=== PATIENT | male | born 1965 | race Caucasian/White ===

== ENCOUNTER 2022-09-19 13:55 | Inpatient (IN) | payer MEDICAID, SELFPAY ==
--- NOTE | ~2022-09-19 | MR_ITS ---
EXAMINATION: MR BRAIN WITHOUT AND WITH CONTRAST CLINICAL INFORMATION: Cerebrovascular accident. COMPARISON: CT angiogram of the head and neck 09/19/2022. TECHNIQUE: Multiplanar MR imaging of the brain was performed without and with contrast. A total of 8.5 mL Gadavist was less this examination. FINDINGS: There are a few small foci of restricted diffusion involving the left frontal and parietal lobes near the vertex best depicted on axial image 23 of 31 series 4. These acute findings are superimposed upon a few scattered chronic small vessel ischemic changes within the periventricular white matter and jim. No pathological magnetic susceptibility artifact. Intracranial vascular flow voids are grossly maintained. Postcontrast images reveal a few tiny foci of enhancement near the site of the acute infarcts. Otherwise no abnormal intracranial mass. No drainable mass effect or midline shift. No abnormal extra-axial collection. Lateral and third ventricles are normal. No hydrocephalus. Midline structures including the cervicomedullary junction are normal. No acute bone marrow signal changes. There is no mastoid middle ear effusion. Mild paranasal sinus disease primarily affecting the ethmoid air cells and maxillary sinuses. Globes and orbits are symmetric. MR/MR head/brain wo/w con IMPRESSION: There are a few small acute and subacute cortical infarcts involving the left frontal and parietal lobes near the vertex. These findings are superimposed upon a few scattered chronic small vessel ischemic changes within the periventricular white matter and jim.
--- NOTE | ~2022-09-19 | CT_ITS ---
CT ANGIOGRAM NECK WITH CONTRAST CT ANGIOGRAM BRAIN WITH CONTRAST CLINICAL INFORMATION: Right leg and arm weakness. COMPARISON: Head CT 12/25/2010. TECHNIQUE: Test bolus sequences followed by intravenous administration 70 mL of Omnipaque 350. Helical imaging was performed in the axial plane from the thoracic inlet to the skull vertex. Delayed postcontrast imaging of the head was also performed. The data was processed at the cardiology technologist workstation for generation of MIP sequences. Angled MIPs and volume rendered reformatted images were also generated at an offline 3D workstation under concurrent supervision. Stenoses are assessed in accordance with NASCET criteria unless otherwise indicated. This CT examination was performed using dose optimization techniques as appropriate, variously including the following: *Automated exposure control *Adjustment of mA and/or kV according to patient size (this includes techniques or standardized protocols for targeted exams where dose is matched to indication/reason for exam; i.e. extremities or head) *Use of iterative reconstruction technique FINDINGS: BRAIN: Suspected small acute infarct within the left parasagittal frontoparietal lobe in the left FORD territory on image 20 of series 9 that can be confirmed with MRI. Hypoattenuation versus artifact within the jim that would be better assessed with an MRI of the brain with and without IV contrast. [There is no intracranial hemorrhage, hydrocephalus, extra-axial surface collection, midline shift, or other herniation pattern. The basilar cisterns are preserved. No significant soft tissue abnormality. No acute osseous abnormality. The paranasal sinuses and the mastoid air cells are well aerated.] CERVICAL SOFT TISSUES AND LUNG APICES: Partially imaged ground glass opacities and consolidation within the lungs that can be correlated for any clinical signs of infection or pulmonary edema. NECK CTA: Left common carotid artery arises from the brachiocephalic artery. Proximal arch vessels are non-stenotic. The vertebral arteries are codominant. No significant ostial stenosis is visualized on either side. Both vertebral arteries are widely patent throughout their extracranial cervical course. Both common carotid arteries are normal in course and caliber.] There is atherosclerotic disease involving the carotid bifurcations bilaterally without significant stenosis involving the proximal internal carotid arteries on either side. BRAIN CTA: There is a severe stenosis versus short segment occlusion of the left anterior cerebral artery at the level of the genu of the corpus callosum. The remainder of the vessel is widely patent. Remaining intracranial arterial vasculature is widely patent. No aneurysm. Timing of the contrast bolus allows assessment of the major dural venous sinuses, which all opacify normally] CT/CT angio head neck IMPRESSION: - Suspected small acute infarct within the left parasagittal frontoparietal lobe in the left FORD territory on image 20 of series 9 that can be confirmed with MRI. - Hypoattenuation versus artifact within the jim that would be better assessed with an MRI of the brain with and without IV contrast. 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 The remainder of the vessel is widely patent. - Partially imaged ground glass opacities and consolidation within the lungs that can be correlated for any clinical signs of infection or pulmonary edema.
--- NOTE | 2022-09-19 14:00 | ED_ITS ---
HPI - General Adult General Chief complaint: Stroke Stated complaint: No Feeling In Legs Time Seen by Provider: 09/19/22 14:23 Source: patient and family Mode of arrival: ambulatory Limitations: no limitations History of Present Illness HPI narrative: 57 yo male with hx of asthma, HTN but does not take his medications he does take a candace aspirin daily he notes that he went to bed at 11pm and states in the middle of the night he was not okay. He woke up around 5am and noted the R side of his body R leg worse than R arm is weak and he has to drag it to walk. He has no headache. He notes he fell x 2 no injury trying to get around. He states this has never happened before. He hasn't seen his doctor in a year. He denies drug use. He denies numbness. He fought coming in but his family member finally was able to get him in here. complaint: R sided weakness Onset (ago): hour(s) (15 hours ago) Location: right, upper extremity and lower extremity Radiation: non-radiation Severity: moderate Relieving factors: none Exacerbating factors: movement Associated symptoms: denies other symptoms Treatments prior to arrival: none Related Data Allergies Allergy/AdvReac Type Severity Reaction Status Date / Time No Known Allergies Allergy Verified 09/19/22 14:03 Review of Systems Review of Systems: Constitutional : No Fever, No Chills, No Fatigue ENT/Mouth : No sore throat, No Rhinorrhea Eyes: No Eye Pain, No Swelling, No Redness, no vision changes Cardiovascular : No Chest Pain, No SOB, No Dyspnea on Exertion Respiratory : No Cough, No Sputum Gastrointestinal : No Nausea, No Vomiting, No Diarrhea, No abdominal Pain Genitourinary : No Dysuria, No Urinary Frequency, No Hematuria, Musculoskeletal : No joint pain, No Myalgias, No Joint Swelling Skin : No Skin Lesions, No rash Neuro : pos Weakness, No Numbness, No Dizziness, no Headache Psych : No Anxiety/Panic, No Depression All other systems reviewed and are negative COUNT INCLUDES THE [facility] Past Medical History Attestation statement: The following information was validated with the patient. Medical History Asthma Hypertension Social History Social History Alcohol intake: current Alcohol intake frequency: a few times a month Patient Tobacco Use Status: Current everyday Tobacco user Smoked in Last 30 Days: Yes Advance Directives: No Advance Directives Information Provided: Yes Physical Exam ED Vital Signs: Vital Signs - 24 hr 09/19/22 14:04 09/19/22 14:50 09/19/22 16:16 Temperature 98 F 98.1 F 97.9 F Pulse Rate 109 H 111 H 78 Respiratory Rate 19 18 15 Blood Pressure 211/118 H 193/93 H 207/94 H Pulse Oximetry 99 95 96 Oxygen Delivery Method Room Air Room Air Room Air BMI result Body Mass Index 169.3 Appearance: Alert. Oriented X3. No acute distress. Eyes: Pupils equal, round and reactive to light. EOMi reports normal visual tai ENT: Pharynx normal. Neck: Normal inspection. Neck supple. CVS: Normal heart rate and rhythm. Pulses normal. Respiratory: No respiratory distress. Breath sounds normal. Abdomen: Soft and nontender. Skin: Skin warm and dry. Normal skin color. Normal skin turgor. Extremities: No lower extremity edema. No calf ttp Neuro: Oriented X 3. normal speech, face symmetric, R arm 4/5, R leg 3+/5. No sensory deficit. NIH Stroke Scale Internal: Initial- Upon Arrival Level of Consciousness: Alert Level of Consciousness Questions: Answers both questions correctly Level of Consciousness Commands: Performs both tasks correctly Best Gaze: Normal Visual: No visual loss Facial Palsy: Normal Motor Arm (Right): Drift Motor Arm (Left): No drift Motor Leg (Right): Some effort against gravity Motor Leg (Left): No drift Limb Ataxia: Absent Sensory: Normal Best Language: No aphasia Dysarthia: Normal Extinction and Inattention: No abnormality Score: 3 Course Course Course Narrative: RME: 57yo M w/PMHx HTN noncompliant on meds, asthma, gastritis c/o RLE weakness since waking this morning around 5AM. states was unable to walk, fell out of bed and was dragging his R foot, admits made it to work but then fell 2 more times. admits to feeling off balance. Denies headache, CP/SOB, numbness, tingling. Denies recent travel or known insect bites HTNsive 211/118 in triage, RLE weakness noted. Pulses difficult to palpate, unable to perform DTRs in triage EKG, labs, Head CT ordered Full HPI, ROS and PE to be performed by primary ED provider. Reevaluation(s) Reevaluation #1: given CTA will admit he agrees to stay - ASA 81mg and atorvastatin ordered, lipid hemoglobin A1c and ESR/CRP ordered. BP high but given stroke will need to be slowly reduced. Medications Administered Discontinued Medications Generic Name Dose Route Start Last Admin Trade Name Freq PRN Reason Stop Dose Admin Iohexol 100 ml 09/19/22 15:44 09/19/22 15:44 Iohexol 350 Mg/Ml 100 Ml Infus..Btl IV 09/19/22 15:45 70 ml ONCE ONE Administration Medical Decision Making Medical Decision Making MDM Narrative: 57 yo male with hx of asthma, gastritis, hypertension does not take his medications here with R sided weakness arm worse than leg - at this time he will need EKG to assess for afib, CTA to assess for LVO and stroke. He states he took a baby 81mg this AM. I anticipate if no LVO he will need admission for stroke workup if he agrees to stay. Differential Diagnosis Differential Diagnoses: The differential diagnosis associated with the presentation includes stroke, uncontrolled HTN Admission/Observation Consideration of admission/observation: Escalation of care including admission/observation considered Consult Healthcare Provider Management of the patient was discussed with: Hospitalist Lab Data [facility] Lab Attestation statement: I reviewed the patient's lab results. 09/19/22 14:40 09/19/22 14:40 Labs: Lab Results 09/19/22 09/19/22 09/19/22 Range/Units 14:40 14:40 14:40 WBC 6.9 (4.8-10.8) X10*3/uL RBC 5.57 (4.60-5.80) X10*6/uL Hgb 15.8 (14.0-18.0) g/dl Hct 46.5 (42.0-52.0) % MCV 83.5 (80.0-98.0) fL MCH 28.4 (27.0-33.0) pg MCHC 34.0 (31.0-36.0) g/dl RDW 13.1 (11.0-16.0) % Plt Count 287 (160-400) X10*3/uL MPV 8.8 L (9.4-12.4) fL Immature Gran % (Auto) 0.3 (0.0-0.4) % Neut % (Auto) 44.3 L (45-73) % Lymph % (Auto) 47.8 H (20-40) % [place] % (Auto) 6.2 (2-11) % Eos % (Auto) 1.0 (0-4) % Baso % (Auto) 0.4 (0-2) % Lymph # (Auto) 3.3 (1.2-4.9) X10*3/uL [place] # (Auto) 0.4 (0.1-1.2) X10*3/uL Eos # (Auto) 0.1 (0.0-0.4) X10*3/uL Baso # (Auto) 0.0 (0.0-0.2) X10*3/uL Abs Immat Gran (auto) 0.02 (0.00-0.03) X10*3/uL Absolute Neuts (auto) 3.1 (2.0-8.3) x10*3/uL Absolute Nucleated RBC 0.000 (0.0-0.012) X10*3/uL Nucleated RBC % (auto) 0.0 (0.0-0.2) /100WBC PT 10.2 (10.0-13.1) SEC INR 0.9 (0.9-1.1) APTT (26.0-36.4) SEC Sodium 140 (135-145) mmol/L Potassium 4.4 (3.3-5.1) mmol/L Chloride 104 (96-108) mmol/L Carbon Dioxide 24 (22-29) mmol/L Anion Gap 16 (12-20) BUN 14 (9-16) mg/dL Creatinine 1.06 (0.5-1.4) mg/dL Estim Creat Clear Calc 280.4 Estimated GFR > 60 POC Glucose (60-115) mg/dL Random Glucose 120 H (60-115) mg/dL Calcium 10.2 (8.4-10.2) mg/dL Magnesium 1.9 (1.6-2.6) mg/dL Total Bilirubin 0.7 (0.0-1.0) mg/dL Direct Bilirubin 0.1 (0.0-0.5) mg/dL AST 31 (5-37) U/L ALT 54 H (0-40) U/L Alkaline Phosphatase 96 (39-117) U/L Troponin I High Sens (<3.5-35.0) ng/L Total Protein 7.9 (6.5-8.0) g/dL Albumin 5.0 (3.5-5.0) g/dL Urine Color Urine Appearance Urine pH (5.0-9.0) Ur Specific [place] (1.005-1.025) Urine Protein (Neg-Trace) mg/dL Urine Glucose (UA) (Negative) mg/dL Urine Ketones (Negative) mg/dL Urine Blood (Negative) Urine Nitrite (Negative) Ur Leukocyte Esterase (Negative) Urine Opiates Screen (Not Detect) Urine Fentanyl Screen (Not Detect) Ur Barbiturates Screen (Not Detect) Ur Phencyclidine Scrn (Not Detect) Ur Amphetamines Screen (Not Detect) U Benzodiazepines Scrn (Not Detect) Urine Cocaine Screen (Not Detect) U Marijuana (THC) Screen (Not Detect) 09/19/22 09/19/22 09/19/22 Range/Units 14:40 14:40 15:00 WBC (4.8-10.8) X10*3/uL RBC (4.60-5.80) X10*6/uL Hgb (14.0-18.0) g/dl Hct (42.0-52.0) % MCV (80.0-98.0) fL MCH (27.0-33.0) pg MCHC (31.0-36.0) g/dl RDW (11.0-16.0) % Plt Count (160-400) X10*3/uL MPV (9.4-12.4) fL Immature Gran % (Auto) (0.0-0.4) % Neut % (Auto) (45-73) % Lymph % (Auto) (20-40) % [place] % (Auto) (2-11) % Eos % (Auto) (0-4) % Baso % (Auto) (0-2) % Lymph # (Auto) (1.2-4.9) X10*3/uL [place] # (Auto) (0.1-1.2) X10*3/uL Eos # (Auto) (0.0-0.4) X10*3/uL Baso # (Auto) (0.0-0.2) X10*3/uL Abs Immat Gran (auto) (0.00-0.03) X10*3/uL Absolute Neuts (auto) (2.0-8.3) x10*3/uL Absolute Nucleated RBC (0.0-0.012) X10*3/uL Nucleated RBC % (auto) (0.0-0.2) /100WBC PT (10.0-13.1) SEC INR (0.9-1.1) APTT 33.9 (26.0-36.4) SEC Sodium (135-145) mmol/L Potassium (3.3-5.1) mmol/L Chloride (96-108) mmol/L Carbon Dioxide (22-29) mmol/L Anion Gap (12-20) BUN (9-16) mg/dL Creatinine (0.5-1.4) mg/dL Estim Creat Clear Calc Estimated GFR POC Glucose 131 H (60-115) mg/dL Random Glucose (60-115) mg/dL Calcium (8.4-10.2) mg/dL Magnesium (1.6-2.6) mg/dL Total Bilirubin (0.0-1.0) mg/dL Direct Bilirubin (0.0-0.5) mg/dL AST (5-37) U/L ALT (0-40) U/L Alkaline Phosphatase (39-117) U/L Troponin I High Sens < 2.7 (<3.5-35.0) ng/L Total Protein (6.5-8.0) g/dL Albumin (3.5-5.0) g/dL Urine Color Urine Appearance Urine pH (5.0-9.0) Ur Specific [place] (1.005-1.025) Urine Protein (Neg-Trace) mg/dL Urine Glucose (UA) (Negative) mg/dL Urine Ketones (Negative) mg/dL Urine Blood (Negative) Urine Nitrite (Negative) Ur Leukocyte Esterase (Negative) Urine Opiates Screen (Not Detect) Urine Fentanyl Screen (Not Detect) Ur Barbiturates Screen (Not Detect) Ur Phencyclidine Scrn (Not Detect) Ur Amphetamines Screen (Not Detect) U Benzodiazepines Scrn (Not Detect) Urine Cocaine Screen (Not Detect) U Marijuana (THC) Screen (Not Detect) 09/19/22 09/19/22 Range/Units 16:14 16:14 WBC (4.8-10.8) X10*3/uL RBC (4.60-5.80) X10*6/uL Hgb (14.0-18.0) g/dl Hct (42.0-52.0) % MCV (80.0-98.0) fL MCH (27.0-33.0) pg MCHC (31.0-36.0) g/dl RDW (11.0-16.0) % Plt Count (160-400) X10*3/uL MPV (9.4-12.4) fL Immature Gran % (Auto) (0.0-0.4) % Neut % (Auto) (45-73) % Lymph % (Auto) (20-40) % [place] % (Auto) (2-11) % Eos % (Auto) (0-4) % Baso % (Auto) (0-2) % Lymph # (Auto) (1.2-4.9) X10*3/uL [place] # (Auto) (0.1-1.2) X10*3/uL Eos # (Auto) (0.0-0.4) X10*3/uL Baso # (Auto) (0.0-0.2) X10*3/uL Abs Immat Gran (auto) (0.00-0.03) X10*3/uL Absolute Neuts (auto) (2.0-8.3) x10*3/uL Absolute Nucleated RBC (0.0-0.012) X10*3/uL Nucleated RBC % (auto) (0.0-0.2) /100WBC PT (10.0-13.1) SEC INR (0.9-1.1) APTT (26.0-36.4) SEC Sodium (135-145) mmol/L Potassium (3.3-5.1) mmol/L Chloride (96-108) mmol/L Carbon Dioxide (22-29) mmol/L Anion Gap (12-20) BUN (9-16) mg/dL Creatinine (0.5-1.4) mg/dL Estim Creat Clear Calc Estimated GFR POC Glucose (60-115) mg/dL Random Glucose (60-115) mg/dL Calcium (8.4-10.2) mg/dL Magnesium (1.6-2.6) mg/dL Total Bilirubin (0.0-1.0) mg/dL Direct Bilirubin (0.0-0.5) mg/dL AST (5-37) U/L ALT (0-40) U/L Alkaline Phosphatase (39-117) U/L Troponin I High Sens (<3.5-35.0) ng/L Total Protein (6.5-8.0) g/dL Albumin (3.5-5.0) g/dL Urine Color Yellow Urine Appearance Clear Urine pH 7.0 (5.0-9.0) Ur Specific [place] 1.015 (1.005-1.025) Urine Protein Negative (Neg-Trace) mg/dL Urine Glucose (UA) Negative (Negative) mg/dL Urine Ketones Negative (Negative) mg/dL Urine Blood Negative (Negative) Urine Nitrite Negative (Negative) Ur Leukocyte Esterase Negative (Negative) Urine Opiates Screen Not Detected (Not Detect) Urine Fentanyl Screen Not Detected (Not Detect) Ur Barbiturates Screen Not Detected (Not Detect) Ur Phencyclidine Scrn Not Detected (Not Detect) Ur Amphetamines Screen Not Detected (Not Detect) U Benzodiazepines Scrn Not Detected (Not Detect) Urine Cocaine Screen Not Detected (Not Detect) U Marijuana (THC) Screen Not Detected (Not Detect) Independent Interpretation I performed an independent interpretation of an: EKG and CT Scan Interpretation: Rate: 98 Rhythm: NSR [place]: left axis, LVH Normal P waves. Normal [place]. Normal QRS complex. ST T wave : no BRITTANY qTC: normal prior studies: no acute ischemia The study has been interpreted contemporaneously by me. . Radiology Impression Discussion of test interpretation with radiology: I have reviewed the radiologist's reading. Independent Historian Clinical information obtained from an independent historian. History obtained from or confirmed by: Other (family member who brought him in) Chronic Conditions Patient?s care impacted by: Hypertension Social Determinants Patient?s care significantly limited by Social Determinants of Health including: Other Social Determinant of Health (non compliant with medications) Discharge Plan Discharge Clinical Impression: Cerebrovascular accident Qualifiers: CVA mechanism: unspecified Qualified Code(s): I63.9 - Cerebral infarction, unspecified Patient Disposition: Admitted As Inpatient
[2022-09-19 14:04] VITALS: BP 211/118; PULSE 109; RESP 19; TEMP 36.6; O2SAT 99; BMI 169.3
--- NOTE | 2022-09-19 14:05 | ECG_ITS ---
Test Reason : WEAKNESS Blood Pressure : / mmHG Vent. Rate : 098 BPM Atrial Rate : 098 BPM P-R Int : 134 ms QRS Dur : 090 ms QT Int : 352 ms P-R-T Axes : 051 -45 053 degrees QTc Int : 449 ms Normal sinus rhythm Possible Left atrial enlargement Left axis deviation Minimal voltage criteria for LVH, may be normal variant ( Bob product ) Abnormal ECG No previous ECGs available Referred By: Sharri Bowie Electronically Signed By:FERMIN SEGURA
[2022-09-19 14:50] VITALS: BP 193/93; PULSE 111; RESP 18; TEMP 36.7; O2SAT 95
[2022-09-19 14:52] LABS: MANUAL DIFF FLAG NO
--- NOTE | 2022-09-19 14:54 | PC.NURSE ---
Alert and oriented. Arrived from home accompanied by family member. states he woke up around 5am and fell because of weakness in his right leg. Denies chest pain, sob, or headache. Hand grasps weaker on right side, difficulty raising right leg. Able to ambulate but gait unsteady and having difficulty moving right leg. States has a history of htn and does not take BP medication as ordered. PERRLA. Denies double or blurry vision.
[2022-09-19 14:56] LABS: Basophils Percent Auto 0.4 % (0-2); Eosinophils Absolute Auto 0.1 X10*3/uL (0.0-0.4); Hematocrit 46.5 % (42.0-52.0); Hemoglobin 15.8 g/dl (14.0-18.0); Imm Gran Abs Auto 0.02 X10*3/uL (0.00-0.03); Imm Gran Pct Auto 0.3 % (0.0-0.4); Lymphocytes Absolute Auto 3.3 X10*3/uL (1.2-4.9); Lymphocytes Percent Auto 47.8 % (20-40); Mean Corpuscular Hemoglobin 28.4 pg (27.0-33.0); Mean Corpuscular Volume 83.5 fL (80.0-98.0); Mean Platelet Volume 8.8 fL (9.4-12.4); Monocytes Absolute Auto 0.4 X10*3/uL (0.1-1.2); Monocytes Percent Auto 6.2 % (2-11); Neutrophils Absolute Auto 3.1 x10*3/uL (2.0-8.3); Neutrophils Percent Auto 44.3 % (45-73); Platelet Count 287 X10*3/uL (160-400); Red Blood Count 5.57 X10*6/uL (4.60-5.80); Red Cell Distribution Width 13.1 % (11.0-16.0); White Blood Count 6.9 X10*3/uL (4.8-10.8)
[2022-09-19 15:03] LABS: Glucose, Whole Blood 131 mg/dL (60-115)
[2022-09-19 15:04] LABS: Partial Thromboplastin Time 33.9 SEC (26.0-36.4)
[2022-09-19 15:16] LABS: Alanine Aminotransferase 54 U/L (0-40); Alkaline Phosphatase 96 U/L (39-117); Anion Gap 16 (12-20); Aspartate Amino Transferase 31 U/L (5-37); Bilirubin Direct 0.1 mg/dL (0.0-0.5); Bilirubin Total 0.7 mg/dL (0.0-1.0); Blood Urea Nitrogen 14 mg/dL (9-16); Calcium 10.2 mg/dL (8.4-10.2); Carbon Dioxide 24 mmol/L (22-29); Chloride 104 mmol/L (96-108); Creatinine Clr Calc Pharmacy 280.4; Estimated Glomerular Filt Rate > 60; Glucose Random 120 mg/dL (60-115); Magnesium 1.9 mg/dL (1.6-2.6); Potassium 4.4 mmol/L (3.3-5.1); Sodium 140 mmol/L (135-145); Total Protein 7.9 g/dL (6.5-8.0)
[2022-09-19 15:19] LABS: Troponin-I High Sensitivity < 2.7 ng/L (<3.5-35.0)
--- NOTE | 2022-09-19 15:28 | PC.NURSE ---
Pt out of room for CTA at this time
[2022-09-19] MEDS: iohexoL 350 MG/ML 100 ML INFUS..BTL IV (15:44)
[2022-09-19 16:04] LABS: INTERNATIONAL NORM RATIO 0.9 (0.9-1.1); Prothrombin Time 10.2 SEC (10.0-13.1)
[2022-09-19 16:16] VITALS: BP 207/94; PULSE 78; RESP 15; TEMP 36.6; O2SAT 96
[2022-09-19 16:27] LABS: Appearance Urine Clear; Color Urine Yellow; Glucose Urine UA Negative (Negative); Leukocyte Esterase Urine Negative (Negative); Nitrite Urine Negative (Negative); Specific Gravity - Urine 1.015 (1.005-1.025); Urine Blood Negative (Negative); Urine Ketones Negative (Negative); Urine Protein Negative (Neg-Trace)
--- NOTE | 2022-09-19 16:33 | PC.NURSE ---
Provider notified of elevated BP with no new orders at this time
[2022-09-19 16:34] LABS: Amphetamine Screen Urine Not Detected (Not Detect); Barbiturates, Urine Not Detected (Not Detect); Benzodiazepines Screen Urine Not Detected (Not Detect); Cannabinoid Screen Urine Not Detected (Not Detect); Cocaine Screen Urine Not Detected (Not Detect); Fentanyl, urine Not Detected (Not Detect); Opiate Screen Urine Not Detected (Not Detect); Phencyclidine Screen Urine Not Detected (Not Detect)
[2022-09-19] MEDS: Atorvastatin Calcium 80 MG TABLET PO (16:44)
[2022-09-19] MEDS: Aspirin 81 MG TAB.CHEW PO (16:44)
--- NOTE | 2022-09-19 16:55 | PC.NURSE ---
PO meds as ordered. Passed swallow eval. Denies sob, headache, or any new weakness. Continues to have right sided leg and arm weakness. BP remains elevated provider aware.
[2022-09-19 17:18] LABS: C Reactive Protein 0.43 mg/dL (< or = 0.50); Estimated Average Glucose 128 mg/dL; Hemoglobin A1c % 6.1 %
[2022-09-19 17:20] LABS: Cholesterol 244 mg/dL; HDL Cholesterol 41 mg/dL; LDL Cholesterol Calculated 148 mg/dl; Triglycerides 278 mg/dL
--- NOTE | 2022-09-19 17:42 | P.HPHOSP_ITS ---
History of Present Illness Date of Service: 09/19/22 Chief Complaint: RIght leg weakness 57-year-old male with history of asthma hypertension (noncompliant medication) states he went to bed at 23:00 last evening and woke in the middle of the night stating his right leg was weak. At 05:00 he attempted to arise in noted extreme weakness of the right leg; attempted to walk but fell several times. Attempted to go to work but could not walk sufficiently; at the origins of his family he was brought [facility]. CTA of the head neck revealed a suspected small acute infarct within the left parasagittal frontal parietal lobe in the left FORD territory. Patient was given atorvastatin 80 mg aspirin 81 mg and will be admitted to telemetry Review of Systems Review of Systems: Denies chest pain Denies shortness of breath Denies fever chills Denies nausea vomiting diarrhea Admits to right-sided weakness leg greater than arm PMFSH Medical History (Updated 09/19/22 @ 17:48 by Rudi Hernandez DO) Asthma Hypertension Social History Alcohol intake: current Alcohol intake frequency: a few times a month Patient Tobacco Use Status: Current everyday Tobacco user Smoked in Last 30 Days: Yes Advance Directives: No Advance Directives Information Provided: Yes Meds Allergies Allergy/AdvReac Type Severity Reaction Status Date / Time No Known Allergies Allergy Verified 09/19/22 14:03 Active Medications: Current Medications Acetaminophen (Acetaminophen 325 Mg Tablet) 650 mg PO Q6H PRN PRN Reason: Pain, Mild (Pain Scale 1-3) Aspirin (Aspirin 81 Mg Tab.Chew) 81 mg PO DAILY ONE Stop: 09/19/22 17:39 Atorvastatin Calcium (Atorvastatin Calcium 80 Mg Tablet) 80 mg PO DAILY ONE Stop: 09/20/22 17:39 Enoxaparin Sodium (Enoxaparin Sodium 40 Mg/0.4 Ml Syringe) 40 mg SUBCUT DAILY ONE Stop: 09/19/22 17:38 Sodium Chloride (0.9 % Sodium Chloride Flush 3 Ml Syringe) 3 ml IVFLUSH QSHIFT ALEXIS Physical Exam Vital Signs and Narrative: Vital Signs: Last Vital Signs Temp 97.9 F 09/19/22 16:16 Pulse 78 09/19/22 16:16 Resp 15 09/19/22 16:16 BP 207/94 H 09/19/22 16:16 Pulse Ox 96 09/19/22 16:16 O2 Del Method Room Air 09/19/22 16:16 BMI result Body Mass Index 169.3 Const: Other: Awake alert oriented x3 no acute distress Resp: Other: Scattered coarse rhonchi that clear with cough Cardio: Other: Regular rate and rhythm; no S4; positive S1-S2; no S3 murmurs rubs or gallops GI: Other: Soft nontender nondistended normoactive bowel sounds Neuro: Other: Cranial nerves 2-12 grossly intact as tested. Motor 3+/5 RLE; 4/5 RUE; minimal pronator drift on right. Sensation intact. Cognition appropriate Extrem: Other: No edema bilaterally Results Labs 09/19/22 14:40 09/19/22 14:40 Labs: Laboratory Results - last 24 hr 09/19/22 09/19/22 09/19/22 14:40 14:40 14:40 MCV 83.5 MCH 28.4 MCHC 34.0 RDW 13.1 Plt Count 287 MPV 8.8 L Immature Gran % (Auto) 0.3 Neut % (Auto) 44.3 L Lymph % (Auto) 47.8 H [place] % (Auto) 6.2 Eos % (Auto) 1.0 Baso % (Auto) 0.4 Lymph # (Auto) 3.3 [place] # (Auto) 0.4 Eos # (Auto) 0.1 Baso # (Auto) 0.0 Abs Immat Gran (auto) 0.02 Absolute Neuts (auto) 3.1 Absolute Nucleated RBC 0.000 Nucleated RBC % (auto) 0.0 PT 10.2 INR 0.9 APTT Anion Gap 16 Estim Creat Clear Calc 280.4 Estimated GFR > 60 POC Glucose Random Glucose 120 H Estimat Average Glucose Hemoglobin A1c % Calcium 10.2 Magnesium 1.9 Total Bilirubin 0.7 Direct Bilirubin 0.1 AST 31 ALT 54 H Alkaline Phosphatase 96 Troponin I High Sens C-Reactive Protein Total Protein 7.9 Albumin 5.0 Triglycerides Cholesterol LDL Cholesterol, Calc HDL Cholesterol Urine Color Urine Appearance Urine pH Ur Specific [place] Urine Protein Urine Glucose (UA) Urine Ketones Urine Blood Urine Nitrite Ur Leukocyte Esterase Urine Opiates Screen Urine Fentanyl Screen Ur Barbiturates Screen Ur Phencyclidine Scrn Ur Amphetamines Screen U Benzodiazepines Scrn Urine Cocaine Screen U Marijuana (THC) Screen 09/19/22 09/19/22 09/19/22 14:40 14:40 15:00 MCV MCH MCHC RDW Plt Count MPV Immature Gran % (Auto) Neut % (Auto) Lymph % (Auto) [place] % (Auto) Eos % (Auto) Baso % (Auto) Lymph # (Auto) [place] # (Auto) Eos # (Auto) Baso # (Auto) Abs Immat Gran (auto) Absolute Neuts (auto) Absolute Nucleated RBC Nucleated RBC % (auto) PT INR APTT 33.9 Anion Gap Estim Creat Clear Calc Estimated GFR POC Glucose 131 H Random Glucose Estimat Average Glucose Hemoglobin A1c % Calcium Magnesium Total Bilirubin Direct Bilirubin AST ALT Alkaline Phosphatase Troponin I High Sens < 2.7 C-Reactive Protein Total Protein Albumin Triglycerides Cholesterol LDL Cholesterol, Calc HDL Cholesterol Urine Color Urine Appearance Urine pH Ur Specific [place] Urine Protein Urine Glucose (UA) Urine Ketones Urine Blood Urine Nitrite Ur Leukocyte Esterase Urine Opiates Screen Urine Fentanyl Screen Ur Barbiturates Screen Ur Phencyclidine Scrn Ur Amphetamines Screen U Benzodiazepines Scrn Urine Cocaine Screen U Marijuana (THC) Screen 09/19/22 09/19/22 09/19/22 16:14 16:14 16:53 MCV MCH MCHC RDW Plt Count MPV Immature Gran % (Auto) Neut % (Auto) Lymph % (Auto) [place] % (Auto) Eos % (Auto) Baso % (Auto) Lymph # (Auto) [place] # (Auto) Eos # (Auto) Baso # (Auto) Abs Immat Gran (auto) Absolute Neuts (auto) Absolute Nucleated RBC Nucleated RBC % (auto) PT INR APTT Anion Gap Estim Creat Clear Calc Estimated GFR POC Glucose Random Glucose Estimat Average Glucose 128 Hemoglobin A1c % 6.1 Calcium Magnesium Total Bilirubin Direct Bilirubin AST ALT Alkaline Phosphatase Troponin I High Sens C-Reactive Protein Total Protein Albumin Triglycerides Cholesterol LDL Cholesterol, Calc HDL Cholesterol Urine Color Yellow Urine Appearance Clear Urine pH 7.0 Ur Specific [place] 1.015 Urine Protein Negative Urine Glucose (UA) Negative Urine Ketones Negative Urine Blood Negative Urine Nitrite Negative Ur Leukocyte Esterase Negative Urine Opiates Screen Not Detected Urine Fentanyl Screen Not Detected Ur Barbiturates Screen Not Detected Ur Phencyclidine Scrn Not Detected Ur Amphetamines Screen Not Detected U Benzodiazepines Scrn Not Detected Urine Cocaine Screen Not Detected U Marijuana (THC) Screen Not Detected 09/19/22 09/19/22 16:53 16:53 MCV MCH MCHC RDW Plt Count MPV Immature Gran % (Auto) Neut % (Auto) Lymph % (Auto) [place] % (Auto) Eos % (Auto) Baso % (Auto) Lymph # (Auto) [place] # (Auto) Eos # (Auto) Baso # (Auto) Abs Immat Gran (auto) Absolute Neuts (auto) Absolute Nucleated RBC Nucleated RBC % (auto) PT INR APTT Anion Gap Estim Creat Clear Calc Estimated GFR POC Glucose Random Glucose Estimat Average Glucose Hemoglobin A1c % Calcium Magnesium Total Bilirubin Direct Bilirubin AST ALT Alkaline Phosphatase Troponin I High Sens C-Reactive Protein 0.43 Total Protein Albumin Triglycerides 278 Cholesterol 244 LDL Cholesterol, Calc 148 HDL Cholesterol 41 Urine Color Urine Appearance Urine pH Ur Specific [place] Urine Protein Urine Glucose (UA) Urine Ketones Urine Blood Urine Nitrite Ur Leukocyte Esterase Urine Opiates Screen Urine Fentanyl Screen Ur Barbiturates Screen Ur Phencyclidine Scrn Ur Amphetamines Screen U Benzodiazepines Scrn Urine Cocaine Screen U Marijuana (THC) Screen Imaging Radiologist's Impressions: Impressions Head/Neck CTA 09/19/22 15:45 IMPRESSION: - Suspected small acute infarct within the left parasagittal frontoparietal lobe in the left FORD territory on image 20 of series 9 that can be confirmed with MRI. - Hypoattenuation versus artifact within the jim that would be better assessed with an MRI of the brain with and without IV contrast. 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 The remainder of the vessel is widely patent. - Partially imaged ground glass opacities and consolidation within the lungs that can be correlated for any clinical signs of infection or pulmonary edema. Assessment and Plan (1) Cerebrovascular accident: Qualifiers: CVA mechanism: unspecified Qualified Code(s): I63.9 - Cerebral infarction, unspecified Status: Acute (2) Asthma: Status: Acute (3) Hypertension: Status: Acute Plan 57-year-old male with a history of hypertension non compliant with therapies awoke from sleep with complaints of right-sided weakness (leg greater than arm.) Outside window for tPA. CTA consistent with small acute infarct left parasagittal frontoparietal lobe. 1. CVA -high-dose statin -aspirin 81 mg -PT consult in a.m. -neurology consult in a.m. along with MRI of brain with and without contrast -monitor on telemetry 2. Hypertension(permissive) -acccept pressures 180-190 systolic -adjust as indicated after acute phase 3. Asthma -encourage tobacco cessation -albuterol inhaler q.4 hours p.r.n. wheezing or shortness of breath Full code Lovenox Requires at least 2 midnights going forward for workup of acute embolic CVA including monitoring. This cannot be achieved in a lesser acute setting Time Spent With Patient Time: Total time managing care of this patient today ____ minutes. Quality Stroke Does the patient have a stroke diagnosis?: No VTE Prior VTE?: No VTE Risk Level:: Medical - moderate - high VTE Device Contraindication: N/A - Device Ordered VTE Drug Contraindication: Treatment Not Indicated
[2022-09-19 17:50] LABS: Erythrocyte Sedimentation Rate 13 MM/HR (0-15)
--- NOTE | 2022-09-19 18:23 | PHA.MEDREC ---
Pharmacy Consult ? Medication Reconciliation Pharmacy has completed the medication reconciliation. spoke with patient. Not very adherent with his Anoro inhaler.
[2022-09-19 18:56] LABS: COVID-19 Test Negative (Negative); IDNOW Serial# 9DB6401D
--- NOTE | 2022-09-19 19:01 | PHA.MEDREC ---
Pharmacy Consult ? Medication Reconciliation Pharmacy has completed the medication reconciliation.
[2022-09-19 19:15] VITALS: BP 173/78
[2022-09-19 19:25] VITALS: BP 161/78; PULSE 85; RESP 15; TEMP 36.6; O2SAT 96
[2022-09-19] MEDS: Enoxaparin Sodium 40 MG/0.4 ML SYRINGE SUBCUT (20:47)
[2022-09-19 21:53] VITALS: BP 145/69; PULSE 81; RESP 14; TEMP 36.6; O2SAT 96
--- NOTE | 2022-09-19 23:40 | PC.NURSE ---
Patient reports right sided weakness is still present but improving. He denies any pain. [place] sandwich, vanilla pudding, and diet gingerale given. No swallowing deficits known. Significant other is at bedside. Call lam within reach. Will continue to follow plan of care.
[2022-09-20 07:01] LABS: MANUAL DIFF FLAG NO
[2022-09-20 07:08] LABS: Basophils Percent Auto 0.4 % (0-2); Eosinophils Absolute Auto 0.1 X10*3/uL (0.0-0.4); Eosinophils Percent Auto 2.1 % (0-4); Hematocrit 44.5 % (42.0-52.0); Hemoglobin 14.9 g/dl (14.0-18.0); Imm Gran Abs Auto 0.02 X10*3/uL (0.00-0.03); Imm Gran Pct Auto 0.4 % (0.0-0.4); Lymphocytes Absolute Auto 2.8 X10*3/uL (1.2-4.9); Lymphocytes Percent Auto 53.7 % (20-40); Mean Corpuscular HGB Conc 33.5 g/dl (31.0-36.0); Mean Corpuscular Hemoglobin 28.7 pg (27.0-33.0); Mean Corpuscular Volume 85.7 fL (80.0-98.0); Mean Platelet Volume 9.2 fL (9.4-12.4); Monocytes Absolute Auto 0.5 X10*3/uL (0.1-1.2); Monocytes Percent Auto 9.4 % (2-11); Neutrophils Absolute Auto 1.8 x10*3/uL (2.0-8.3); Platelet Count 270 X10*3/uL (160-400); Red Blood Count 5.19 X10*6/uL (4.60-5.80); Red Cell Distribution Width 13.2 % (11.0-16.0); White Blood Count 5.2 X10*3/uL (4.8-10.8)
[2022-09-20 07:23] VITALS: BP 152/75; PULSE 91; RESP 20; TEMP 36.6; O2SAT 96
[2022-09-20 07:30] LABS: Alanine Aminotransferase 48 U/L (0-40); Albumin Level 4.4 g/dL (3.5-5.0); Alkaline Phosphatase 89 U/L (39-117); Anion Gap 14 (12-20); Aspartate Amino Transferase 22 U/L (5-37); Bilirubin Total 0.9 mg/dL (0.0-1.0); Blood Urea Nitrogen 14 mg/dL (9-16); Calcium 9.4 mg/dL (8.4-10.2); Carbon Dioxide 25 mmol/L (22-29); Chloride 102 mmol/L (96-108); Creatinine Clr Calc Pharmacy 285.8; Estimated Glomerular Filt Rate > 60; Glucose Random 127 mg/dL (60-115); Potassium 4.2 mmol/L (3.3-5.1); Sodium 137 mmol/L (135-145); Total Protein 6.7 g/dL (6.5-8.0)
[2022-09-20] MEDS: Atorvastatin Calcium 80 MG TABLET PO (08:27)
[2022-09-20] MEDS: Aspirin 81 MG TAB.CHEW PO (08:27)
[2022-09-20] MEDS: 0.9 % Sodium Chloride Flush 3 ML SYRINGE IVFLUSH ×2 (08:27→15:26)
--- NOTE | 2022-09-20 09:10 | MHC.CM.PN ---
Pt admitted with dx CVA. Pt from home independent/self-care, no services/DME. D/C plan pending further evaluation, but likely return home with VNA/self-care vs STR. Pts fiance can transport. HCP filled out today, and on file. PCP: Dmitri Diehl vax: x 4
[2022-09-20 09:49] VITALS: BMI 27.1
[2022-09-20 10:39] VITALS: BP 152/75; PULSE 91; O2SAT 96
[2022-09-20] MEDS: Multivitamin TABLET 1 TAB PO (11:10)
[2022-09-20] MEDS: Omeprazole 20 MG CAPSULE.DR PO (11:10)
[2022-09-20 11:17] VITALS: BP 148/80; PULSE 95; RESP 20; TEMP 36.4; O2SAT 98
--- NOTE | 2022-09-20 12:03 | MHC.STROKE ---
WALK-IN TO ED 09/19/22 AT 1355, VERY HTN 211/118, C/O RA, RL WEAKNESS, SEEN BY PROVIDER NIHSS = 3. LKW 09/18/22 2300, DISCOVERY OF SYMPTOMS 09/19/22 0500. I MET WITH HIM TODAY AND HIS S.O. WE DISCUSSED HIS STROKE DIAGNOSIS, LOCATION, MRI, LIPID PANEL,BP, ALL OF HIS INDIVIDUAL RISK FACTORS PLUS MEDICATION COMPLIANCE AND WHY. WE REVIEWED THE STROKE EDUCATION BOOKLET AND POWER POINT HANDOUTS. I ANSWERED ALL OF THEIR QUESTIONS. I WILL CONTINUE TO FOLLOW.
--- NOTE | 2022-09-20 14:01 | PM.NEUROCN ---
History of Present Illness Data of Consult Service Date: 09/20/22 Primary Care Provider: Dmitri Arzola MD HPI Reason for consult: Stroke 57 years old man with hypertension came to hospital with new onset of right leg weakness. Significant time had elapsed resulting in lack of treatment for acute stroke. When I saw him he was feeling better. There was no complaint of any new pain or bowel bladder difficulties. Review of Systems Review of Systems: No recent seizure-like episode trauma or cold or fever like episode. ON LICENSE OF [facility] Past Medical History Medical History Asthma Hypertension Social History Social History Household Members: Family Housing: Apartment Do you presently have visiting nurse or other home services: No Alcohol intake: current Alcohol intake frequency: a few times a month Patient Tobacco Use Status: Current everyday Tobacco user Tobacco use type: Cigarette Cigarette Packs Per Day: 1 Cigarettes Per Day: 20.0 e-Cigarette/Vaping Use: Never Used Second Hand Smoke Exposure: No service: No Current occupational status: employed Meds Allergies Allergy/AdvReac Type Severity Reaction Status Date / Time No Known Allergies Allergy Verified 09/19/22 14:03 Active Medications: Current Medications Acetaminophen (Acetaminophen 325 Mg Tablet) 650 mg PO Q6H PRN PRN Reason: Pain, Mild (Pain Scale 1-3) Aspirin (Aspirin 81 Mg Tab.Chew) 81 mg PO DAILY [facility] Last Admin: 09/20/22 08:27 Dose: 81 mg Atorvastatin Calcium (Atorvastatin Calcium 80 Mg Tablet) 80 mg PO DAILY [facility] Last Admin: 09/20/22 08:27 Dose: 80 mg Enoxaparin Sodium (Enoxaparin Sodium 40 Mg/0.4 Ml Syringe) 40 mg SUBCUT Q24H [facility] Last Admin: 09/19/22 20:47 Dose: 40 mg Multivitamins/Vitamin C (Multivitamin Tablet) 1 tab PO DAILY [facility] Last Admin: 09/20/22 11:10 Dose: 1 tab Non-Formulary Medication (Umeclidinium-Vilanterol [Anoro Ellipta]) 1 inhalation INHALE DAILY [facility] Omeprazole (Omeprazole 20 Mg Capsule.Dr) 20 mg PO DAILY@0630 [facility] Last Admin: 09/20/22 11:10 Dose: 20 mg Sodium Chloride (0.9 % Sodium Chloride Flush 3 Ml Syringe) 3 ml IVFLUSH QSHIFT [facility] Last Admin: 09/20/22 08:27 Dose: 3 ml Home Medications Medication Instructions Recorded Confirmed Last Taken Type multivitamin 1 tab PO DAILY 09/19/22 09/19/22 09/19/22 History omeprazole 20 mg capsule,delayed 20 mg PO DAILY 09/19/22 09/19/22 09/18/22 History release umeclidinium 62.5 mcg-vilanterol 1 inh inhalation DAILY 09/19/22 09/19/22 Unknown History 25 mcg/actuation powdr for inhalation (Anoro Ellipta) Physical Exam Vital Signs: Vital Signs: Last Vital Signs Temp 97.5 F 09/20/22 11:17 Pulse 95 09/20/22 11:17 Resp 20 09/20/22 11:17 BP 148/80 H 09/20/22 11:17 Pulse Ox 98 09/20/22 11:17 O2 Del Method Room Air 09/20/22 11:17 BMI result Body Mass Index 27.1 Neuro: Other: Alert and awake with normal spontaneity of speech fluency comprehension and affect. Face is symmetrical. There is no pronator drift. Deep tendon reflexes are trace to absent with flexor plantars. He is able to get up but felt unsteady on his feet. Results Labs 09/20/22 06:50 09/20/22 06:50 Labs: Short CBC 09/19/22 09/20/22 Range/Units 14:40 06:50 WBC 6.9 5.2 (4.8-10.8) X10*3/uL Hgb 15.8 14.9 (14.0-18.0) g/dl Hct 46.5 44.5 (42.0-52.0) % Plt Count 287 270 (160-400) X10*3/uL BMP 09/19/22 09/20/22 14:40 06:50 Sodium 140 137 Potassium 4.4 4.2 Chloride 104 102 Carbon Dioxide 24 25 BUN 14 14 Creatinine 1.06 1.04 Calcium 10.2 9.4 D Liver Function 09/19/22 09/20/22 Range/Units 14:40 06:50 Total Bilirubin 0.7 0.9 (0.0-1.0) mg/dL Direct Bilirubin 0.1 (0.0-0.5) mg/dL AST 31 22 (5-37) U/L ALT 54 H 48 H (0-40) U/L Alkaline Phosphatase 96 89 (39-117) U/L Albumin 5.0 4.4 (3.5-5.0) g/dL Urine 09/19/22 Range/Units 16:14 Urine Color Yellow Urine Appearance Clear Urine pH 7.0 (5.0-9.0) Ur Specific [place] 1.015 (1.005-1.025) Urine Protein Negative (Neg-Trace) mg/dL Urine Glucose (UA) Negative (Negative) mg/dL CTA of brain and neck revealed a possible left parasagittal ischemic infarction. Assessment and Plan (1) Cerebrovascular accident: Qualifiers: CVA mechanism: unspecified Qualified Code(s): I63.9 - Cerebral infarction, unspecified Status: Acute 57 years old man with hypertension and probably an ischemic infarction resulting in right leg weakness. There is some intracranial atherosclerotic disease. Mainstay of management is blood pressure control, statin, and anti-platelet agent. I would also recommend a noncontrast MRI for better definition specially of the pontine lesion. Time Spent With Patient Time: Total time managing care of this patient today ____ minutes. Procedures Date of Service Date of Service: 09/20/22
--- NOTE | 2022-09-20 14:41 | P.PNIM_ITS ---
Subjective Subjective Date of Service: 09/20/22 Interval History: Some improvement this a.m.. No new symptoms. Spirits good Review of Systems Denies chest pain Denies shortness of breath Denies fever chills Denies nausea vomiting diarrhea Admits to right-sided weakness leg greater than arm Physical Exam Vital Signs: Vital Signs: Last Vital Signs Temp 97.5 F 09/20/22 11:17 Pulse 95 09/20/22 11:17 Resp 20 09/20/22 11:17 BP 148/80 H 09/20/22 11:17 Pulse Ox 98 09/20/22 11:17 O2 Del Method Room Air 09/20/22 11:17 BMI result Body Mass Index 27.1 Const: Other: Awake alert oriented x3 no acute distress Resp: Other: Scattered coarse rhonchi that clear with cough Cardio: Other: Regular rate and rhythm; no S4; positive S1-S2; no S3 murmurs rubs or gallops GI: Other: Soft nontender nondistended normoactive bowel sounds Neuro: Other: Cranial nerves 2-12 grossly intact as tested. Motor 3+/5 RLE; 4/5 RUE; minimal pronator drift on right. Sensation intact. Cognition appropriate Extrem: Other: No edema bilaterally Objective Data Active Medications Acetaminophen (Acetaminophen 325 Mg Tablet) 650 mg PO Q6H PRN PRN Reason: Pain, Mild (Pain Scale 1-3) Aspirin (Aspirin 81 Mg Tab.Chew) 81 mg PO DAILY [facility] Last Admin: 09/20/22 08:27 Dose: 81 mg Documented By: BELLA Atorvastatin Calcium (Atorvastatin Calcium 80 Mg Tablet) 80 mg PO DAILY [facility] Last Admin: 09/20/22 08:27 Dose: 80 mg Documented By: BELLA Enoxaparin Sodium (Enoxaparin Sodium 40 Mg/0.4 Ml Syringe) 40 mg SUBCUT Q24H [facility] Last Admin: 09/19/22 20:47 Dose: 40 mg Documented By: CASSIE Lisinopril (Lisinopril 5 Mg Tablet) 5 mg PO DAILY [facility]; Protocol Multivitamins/Vitamin C (Multivitamin Tablet) 1 tab PO DAILY [facility] Last Admin: 09/20/22 11:10 Dose: 1 tab Documented By: BELLA Non-Formulary Medication (Umeclidinium-Vilanterol [Anoro Ellipta]) 1 inhalation INHALE DAILY [facility] Omeprazole (Omeprazole 20 Mg Capsule.Dr) 20 mg PO DAILY@0630 [facility] Last Admin: 09/20/22 11:10 Dose: 20 mg Documented By: BELLA Sodium Chloride (0.9 % Sodium Chloride Flush 3 Ml Syringe) 3 ml IVFLUSH QSHIFT [facility] Last Admin: 09/20/22 08:27 Dose: 3 ml Documented By: BELLA Labs 09/20/22 06:50 09/20/22 06:50 Labs: Laboratory Results - last 24 hr 09/19/22 09/19/22 09/19/22 14:40 14:40 14:40 MCV 83.5 MCH 28.4 MCHC 34.0 RDW 13.1 Plt Count 287 MPV 8.8 L Immature Gran % (Auto) 0.3 Neut % (Auto) 44.3 L Lymph % (Auto) 47.8 H [place] % (Auto) 6.2 Eos % (Auto) 1.0 Baso % (Auto) 0.4 Lymph # (Auto) 3.3 [place] # (Auto) 0.4 Eos # (Auto) 0.1 Baso # (Auto) 0.0 Abs Immat Gran (auto) 0.02 Absolute Neuts (auto) 3.1 Absolute Nucleated RBC 0.000 Nucleated RBC % (auto) 0.0 ESR PT 10.2 INR 0.9 APTT Anion Gap 16 Estim Creat Clear Calc 280.4 Estimated GFR > 60 POC Glucose Random Glucose 120 H Estimat Average Glucose Hemoglobin A1c % Calcium 10.2 Magnesium 1.9 Total Bilirubin 0.7 Direct Bilirubin 0.1 AST 31 ALT 54 H Alkaline Phosphatase 96 Troponin I High Sens C-Reactive Protein Total Protein 7.9 Albumin 5.0 Triglycerides Cholesterol LDL Cholesterol, Calc HDL Cholesterol Urine Color Urine Appearance Urine pH Ur Specific [place] Urine Protein Urine Glucose (UA) Urine Ketones Urine Blood Urine Nitrite Ur Leukocyte Esterase Urine Opiates Screen Urine Fentanyl Screen Ur Barbiturates Screen Ur Phencyclidine Scrn Ur Amphetamines Screen U Benzodiazepines Scrn Urine Cocaine Screen U Marijuana (THC) Screen COVID-19 (RODRICK) COVID-19 Clin Com 09/19/22 09/19/22 09/19/22 14:40 14:40 15:00 MCV MCH MCHC RDW Plt Count MPV Immature Gran % (Auto) Neut % (Auto) Lymph % (Auto) [place] % (Auto) Eos % (Auto) Baso % (Auto) Lymph # (Auto) [place] # (Auto) Eos # (Auto) Baso # (Auto) Abs Immat Gran (auto) Absolute Neuts (auto) Absolute Nucleated RBC Nucleated RBC % (auto) ESR PT INR APTT 33.9 Anion Gap Estim Creat Clear Calc Estimated GFR POC Glucose 131 H Random Glucose Estimat Average Glucose Hemoglobin A1c % Calcium Magnesium Total Bilirubin Direct Bilirubin AST ALT Alkaline Phosphatase Troponin I High Sens < 2.7 C-Reactive Protein Total Protein Albumin Triglycerides Cholesterol LDL Cholesterol, Calc HDL Cholesterol Urine Color Urine Appearance Urine pH Ur Specific [place] Urine Protein Urine Glucose (UA) Urine Ketones Urine Blood Urine Nitrite Ur Leukocyte Esterase Urine Opiates Screen Urine Fentanyl Screen Ur Barbiturates Screen Ur Phencyclidine Scrn Ur Amphetamines Screen U Benzodiazepines Scrn Urine Cocaine Screen U Marijuana (THC) Screen COVID-19 (RODRICK) COVID-[employer] 09/19/22 09/19/22 09/19/22 16:14 16:14 16:41 MCV MCH MCHC RDW Plt Count MPV Immature Gran % (Auto) Neut % (Auto) Lymph % (Auto) [place] % (Auto) Eos % (Auto) Baso % (Auto) Lymph # (Auto) [place] # (Auto) Eos # (Auto) Baso # (Auto) Abs Immat Gran (auto) Absolute Neuts (auto) Absolute Nucleated RBC Nucleated RBC % (auto) ESR PT INR APTT Anion Gap Estim Creat Clear Calc Estimated GFR POC Glucose Random Glucose Estimat Average Glucose Hemoglobin A1c % Calcium Magnesium Total Bilirubin Direct Bilirubin AST ALT Alkaline Phosphatase Troponin I High Sens C-Reactive Protein Total Protein Albumin Triglycerides Cholesterol LDL Cholesterol, Calc HDL Cholesterol Urine Color Yellow Urine Appearance Clear Urine pH 7.0 Ur Specific [place] 1.015 Urine Protein Negative Urine Glucose (UA) Negative Urine Ketones Negative Urine Blood Negative Urine Nitrite Negative Ur Leukocyte Esterase Negative Urine Opiates Screen Not Detected Urine Fentanyl Screen Not Detected Ur Barbiturates Screen Not Detected Ur Phencyclidine Scrn Not Detected Ur Amphetamines Screen Not Detected U Benzodiazepines Scrn Not Detected Urine Cocaine Screen Not Detected U Marijuana (THC) Screen Not Detected COVID-19 (RODRICK) Negative COVID-19 [employer] See Note 09/19/22 09/19/22 09/19/22 16:53 16:53 16:53 MCV MCH MCHC RDW Plt Count MPV Immature Gran % (Auto) Neut % (Auto) Lymph % (Auto) [place] % (Auto) Eos % (Auto) Baso % (Auto) Lymph # (Auto) [place] # (Auto) Eos # (Auto) Baso # (Auto) Abs Immat Gran (auto) Absolute Neuts (auto) Absolute Nucleated RBC Nucleated RBC % (auto) ESR 13 PT INR APTT Anion Gap Estim Creat Clear Calc Estimated GFR POC Glucose Random Glucose Estimat Average Glucose 128 Hemoglobin A1c % 6.1 Calcium Magnesium Total Bilirubin Direct Bilirubin AST ALT Alkaline Phosphatase Troponin I High Sens C-Reactive Protein Total Protein Albumin Triglycerides 278 Cholesterol 244 LDL Cholesterol, Calc 148 HDL Cholesterol 41 Urine Color Urine Appearance Urine pH Ur Specific [place] Urine Protein Urine Glucose (UA) Urine Ketones Urine Blood Urine Nitrite Ur Leukocyte Esterase Urine Opiates Screen Urine Fentanyl Screen Ur Barbiturates Screen Ur Phencyclidine Scrn Ur Amphetamines Screen U Benzodiazepines Scrn Urine Cocaine Screen U Marijuana (THC) Screen COVID-19 ([facility]ODRICK) COVID-19 Clin Com 09/19/22 09/20/22 09/20/22 16:53 06:50 06:50 MCV 85.7 MCH 28.7 MCHC 33.5 RDW 13.2 Plt Count 270 MPV 9.2 L Immature Gran % (Auto) 0.4 Neut % (Auto) 34.0 L Lymph % (Auto) 53.7 H [place] % (Auto) 9.4 Eos % (Auto) 2.1 Baso % (Auto) 0.4 Lymph # (Auto) 2.8 [place] # (Auto) 0.5 Eos # (Auto) 0.1 Baso # (Auto) 0.0 Abs Immat Gran (auto) 0.02 Absolute Neuts (auto) 1.8 L Absolute Nucleated RBC 0.000 Nucleated RBC % (auto) 0.0 ESR PT INR APTT Anion Gap 14 Estim Creat Clear Calc 285.8 Estimated GFR > 60 POC Glucose Random Glucose 127 H Estimat Average Glucose Hemoglobin A1c % Calcium 9.4 D Magnesium Total Bilirubin 0.9 Direct Bilirubin AST 22 ALT 48 H Alkaline Phosphatase 89 Troponin I High Sens C-Reactive Protein 0.43 Total Protein 6.7 Albumin 4.4 Triglycerides Cholesterol LDL Cholesterol, Calc HDL Cholesterol Urine Color Urine Appearance Urine pH Ur Specific [place] Urine Protein Urine Glucose (UA) Urine Ketones Urine Blood Urine Nitrite Ur Leukocyte Esterase Urine Opiates Screen Urine Fentanyl Screen Ur Barbiturates Screen Ur Phencyclidine Scrn Ur Amphetamines Screen U Benzodiazepines Scrn Urine Cocaine Screen U Marijuana (THC) Screen COVID-19 ([facility]ODRICK) COVID-19 Clin Com Assessment and Plan (1) Cerebrovascular accident: Status: Acute (2) Hypertension: Status: Acute (3) Asthma: Status: Acute Plan 57-year-old male with a history of hypertension non compliant with therapies awoke from sleep with complaints of right-sided weakness (leg greater than arm.) Outside window for tPA. CTA consistent with small acute infarct left parasagi ttal frontoparietal lobe. 1. CVA -high-dose statin -aspirin 81 mg -PT consult appreciated -MRI of brain with and without contrast -monitor on telemetry 2. Hypertension(permissive) -acccept pressures 180-190 systolic -adjust as indicated after acute phase 3. Asthma -encourage tobacco cessation -albuterol inhaler q.4 hours p.r.n. wheezing or shortness of breath Full code Lovenox Patient requires ongoing hospitalization to complete workup for acute CVA Time Spent With Patient Time: Total time managing care of this patient today ____ minutes. Quality Stroke Does the patient have a stroke diagnosis?: No VTE Prior VTE?: No VTE Risk Level:: Medical - moderate - high VTE Device Contraindication: N/A - Device Ordered VTE Drug Contraindication: Treatment Not Indicated
[2022-09-20] MEDS: lisinopriL 5 MG TABLET PO (15:26)
[2022-09-20 15:42] VITALS: BP 150/61; PULSE 92; RESP 18; TEMP 37.2; O2SAT 97
[2022-09-20] MEDS: Enoxaparin Sodium 40 MG/0.4 ML SYRINGE SUBCUT (18:43)
[2022-09-20 19:38] VITALS: BP 150/70; PULSE 93; RESP 18; TEMP 36.7; O2SAT 96
[2022-09-20 23:49] VITALS: BP 151/76; PULSE 86; RESP 18; TEMP 36.3; O2SAT 97
[2022-09-21] MEDS: 0.9 % Sodium Chloride Flush 3 ML SYRINGE IVFLUSH ×2 (00:14→07:55)
[2022-09-21 04:00] VITALS: BP 135/64; PULSE 81; RESP 18; TEMP 36.9; O2SAT 98
[2022-09-21] MEDS: Omeprazole 20 MG CAPSULE.DR PO (05:29)
[2022-09-21 07:16] VITALS: BP 160/82; PULSE 88; RESP 20; TEMP 37.2; O2SAT 97
[2022-09-21] MEDS: Atorvastatin Calcium 80 MG TABLET PO (07:55)
[2022-09-21] MEDS: Multivitamin TABLET 1 TAB PO (07:55)
[2022-09-21] MEDS: lisinopriL 5 MG TABLET PO (07:55)
[2022-09-21] MEDS: Aspirin 81 MG TAB.CHEW PO (07:55)
[2022-09-21 09:36] VITALS: BP 160/82; PULSE 88; O2SAT 97
--- NOTE | 2022-09-21 11:11 | P.DS_ITS ---
DS: Providers Provider Date of Service: 09/21/22 Date of admission: 09/19/22 17:29 Date of discharge: 09/21/22 Primary care physician: Dmitri Arzola MD Consults: 09/19/22 17:39 Consult to Neurology Routine Consulting Provider: [facility] Reason for consultation: CVA Has provider been notified: No DS: Diagnosis Discharge Diagnosis (1) Cerebrovascular accident: Status: Acute (2) Hypertension: Status: Acute (3) Asthma: Status: Acute DS: Summary Hospital Course Hospital Course: 57-year-old male with history of asthma hypertension (noncompliant medication) states he went to bed at 23:00 last evening and woke in the middle of the night stating his right leg was weak.? At 05:00 he attempted to arise in noted extreme weakness of the right leg; attempted to walk but fell several times.? Attempted to go to work but could not walk sufficiently; at the origins of his family he was brought to [facility].? CTA of the head neck revealed a suspected small acute infarct within the left parasagittal frontal parietal lobe in the left FORD territory.? Patient was given atorvastatin 80 mg aspirin 81 mg and will be admitted to telemetry Hospital Course Patient admitted to telemetry where monitor failed to demonstrate an dysrhythmias. He underwent an MRI of head which demonstrated fuse a few small subacute and acute cortical infarcts involving the left frontal and parietal lobes near the vertex. Over the course next 48 hours he dramatically improved t o the point where he was able to ambulate with a walker and do stairs. At this point in time physical therapy believe he is appropriate for discharge to home and can follow-up with his PCP. He will be discharged on high-dose statin aspirin and AHMET-inhibitor. Time Spent with Patient Time attestation: Total time managing care of this patient today ____ minutes. Discharge coordination time: Greater than 30 minutes Quality: Safe Use of Opioids Does Pt have an Active Cancer Diagnosis on the Problem List?: No Quality: Stroke Does the patient have a stroke diagnosis?: Yes Reason for No Anti-thrombotic at DC: N/A - Med Ordered Reason for No Anticoagulant at DC: Drug treatment not indicated Reason Not Initiating IV-Tpa: Not indicated Reason for No Anti-thrombotic by Day Two: N/A - Med Ordered Reason for No Statin at DC: N/A - Med Ordered Physical Exam Vital Signs: Vital Signs: Last Vital Signs Temp 98.9 F 09/21/22 07:16 Pulse 88 09/21/22 09:36 Resp 20 09/21/22 07:16 BP 160/82 H 09/21/22 09:36 Pulse Ox 97 09/21/22 09:36 O2 Del Method Room Air 09/21/22 07:16 BMI result Body Mass Index 27.1 Const: Other: Awake alert oriented x3 no acute distress Resp: Other: Scattered coarse rhonchi that clear with cough Cardio: Other: Regular rate and rhythm; no S4; positive S1-S2; no S3 murmurs rubs or gallops GI: Other: Soft nontender nondistended normoactive bowel sounds Neuro: Other: Cranial nerves 2-12 grossly intact as tested. Motor 4/5 RLE; 4/5 RUE; pronator drift resolved. Sensation intact. Cognition appropriate Extrem: Other: No edema bilaterally Discharge Plan Discharge Anticipated Discharge Date/Time: 09/21/22 11:01 Patient Disposition: Home, Self-Care Discharge Diagnosis: CVA Referrals: Dmitri Arzola MD [Primary Care Provider] - 1 Week Discharge Medications: New atorvastatin 80 mg Tablet 80 mg PO DAILY Qty: 30 3RF aspirin 81 mg Tablet,Chewable 81 mg PO DAILY Qty: 30 3RF lisinopril 5 mg Tablet 5 mg PO DAILY Qty: 30 3RF Protocol: Hold for SBP< HOLD for SBP < : 90 Continued multivitamin Tablet 1 tab PO DAILY omeprazole 20 mg Capsule,Delayed Release(Dr/Ec) 20 mg PO DAILY Anoro Ellipta 62.5-25 mcg/actuation blister with device 1 inh INHALATION DAILY Discharge Orders: Discharge Order (Routine); Ordered 09/21/22 Ordered By: Rudi Hernandez Diet: Advance to usual diet Activity on Discharge: As tolerated Stand Alone Forms: Patient Portal Discharge page, Work/School Release Care Plan Goals: Lipitor 80 mg daily; aspirin 81 mg daily; lisinopril 5 mg daily have been added to her medical regimen Health Concerns: Need to be compliant with these medicines. Plan of Treatment: Follow-up with PCP in 1-2 weeks Assessment: See discharge summary
[2022-09-21 11:12] VITALS: BP 144/70; PULSE 83; RESP 20; TEMP 37.3; O2SAT 96
--- NOTE | 2022-09-21 11:43 | MHC.CM.PN ---
PT MEDICALLY CLEARED FOR D/C HOME SELF CARE, PT'S FIANCE FOR TRANSPORT
== END 2022-09-21 12:06 | disposition home or self-care (01) | DRG 45 ==
LOC: HO.ED 16:52 → HO.EDOVER 17:39 → HO.IMC 09-20 00:10
PROVIDERS: Physician Assistant; Admitting Provider Hospitalist; Emergency Provider Emergency Medicine; PCP Internal Medicine; Visit Provider Hospitalist
DX: I63.522 Cerebral infarction due to unspecified occlusion or stenosis of left anterior cerebral artery (principal); G81.91 Hemiplegia, unspecified affecting right dominant side; R29.703 NIHSS score 3; F17.210 Nicotine dependence, cigarettes, uncomplicated; I10 Essential (primary) hypertension; J45.909 Unspecified asthma, uncomplicated; Z20.822 Contact with and (suspected) exposure to COVID-19; Z91.148 Patient's other noncompliance with medication regimen for other reason; Z71.6 Tobacco abuse counseling; Z79.82 Long term (current) use of aspirin; Z79.899 Other long term (current) drug therapy
CPT/HCPCS: 36415; 70496; 70498; 70553; 80048; 80053; 80061; 80076; 80307; 81003; 82947; 83036; 83735; 84484; 85025; 85610; 85652; 85730; 86140; 87635; 93005; 97116; 97162; 97166; 99285; A9585; J1650; Q9967

== ENCOUNTER 2024-05-19 09:02 | Inpatient (IN) | payer MEDICAID, SELFPAY ==
--- NOTE | ~2024-05-19 | XR_ITS ---
EXAMINATION: XR CHEST CLINICAL INFORMATION: cp COMPARISON: None available. TECHNIQUE: 2 views of the chest were obtained. FINDINGS: The cardiac, hilar, and mediastinal contours are normal. There are low lung volumes with mild bronchovascular crowding. Within these confines, lungs appear clear. There is no pneumothorax or pleural effusion. There is no focal osseous or soft tissue abnormality. XR/XR chest 2V IMPRESSION: Low lung volumes with bronchovascular crowding. No definite active pulmonary disease. Electronically signed by: Tristan Bhandari MD 05/19/2024 10:01 AM [facility]
--- NOTE | ~2024-05-19 | IR_ITS ---
CLINICAL HISTORY: Patient requires dialysis. The patient presents to interventional radiology for placement of a non-tunneled central venous catheter for hemodialysis. PROCEDURES: 1. Real-time ultrasound-guided access into the right internal jugular vein after documentation of selected vessel patency, and permanent imaging storing in the patient record. 2. Placement of a 12.0 fr 20 cm non-tunneled, triple-lumen hemodialysis catheter. Clinician: Fabrice Dean PA-C MEDICATIONS: -Lidocaine 1% 10 mL SQ. -For additional details, please see nursing flowsheet. COMPLICATIONS: None. ESTIMATED BLOOD LOSS: <5 ml SPECIMENS: None FLUOROSCOPY TIME: 1.7 min PROCEDURE NOTE: The procedure, risks, benefits, and alternatives were carefully explained to patient, and written informed consent was obtained. The patient was placed supine on the fluoroscopy table. A timeout was performed. The right neck and chest was prepped and draped in usual sterile fashion. Local anesthesia was administered to the access site with lidocaine. Under ultrasound guidance, the right internal jugular vein was accessed with a 4 Fr micropuncture set. A 0.035 in wire was advanced into the IVC. The tract in the vein was serially dilated. Over the wire, a 12.0 fr 20 non-tunneled, triple-lumen hemodialysis catheter was advanced, with the tip located at the cavoatrial junction. The wire was removed. The catheter was tested, flushed, and sutured to the skin. A permanent fluoroscopic image of the chest was saved to PACS. The catheter ports were packed with heparin per routine protocol. The patient was stable after the procedure and was transferred to the medical floor. There were no immediate complications. FINDINGS: 1. Patent right internal jugular vein. 2. Placement of a non-tunneled, triple-lumen hemodialysis catheter as above. 3. Catheter flushes and aspirates very well with a 10 mL syringe. No pneumothorax. IR/IR us guide venous access IMPRESSION: Placement of a non-tunneled hemodialysis catheter in the right internal jugular vein. PLAN: -The catheter may be used immediately. This procedure was performed by Fabrice Dean PA-C, and directly supervised by Dr. Shirley. Electronically signed by: Jalen Shirley MD 05/22/2024 02:20 PM [facility] [place]
--- NOTE | ~2024-05-19 | CT_ITS ---
EXAMINATION: CT ABDOMEN AND PELVIS WITHOUT CONTRAST CLINICAL INFORMATION: Left sided abdominal pain, RAMONITA COMPARISON: Report of CT abdomen pelvis 10/21/2006. Images are not available for direct review. TECHNIQUE: Multidetector volumetric imaging was performed from the superior aspect of the liver through the pubic symphysis. Sagittal and coronal reformatted images were obtained on the technologist's workstation. This CT examination was performed using dose optimization techniques as appropriate, variously including the following: *Automated exposure control *Adjustment of mA and/or kV according to patient size (this includes techniques or standardized protocols for targeted exams where dose is matched to indication/reason for exam; i.e. extremities or head) *Use of iterative reconstruction technique FINDINGS: LUNG BASES: -Mild mosaic attenuation, and mild foci of scarring/atelectasis. Small airways appear thickened suggesting chronic bronchitis. -No effusions. -Normal heart size. -Small type I hiatus hernia. LIVER, GALLBLADDER, AND BILIARY TREE: The liver is normal in size, shape, and attenuation. There is a 1.2 cm biliary cyst in segment 3. No suspicious focal hepatic lesion or biliary ductal dilatation is present. The gallbladder is unremarkable with no evidence of radiopaque gallstones, gallbladder wall thickening, or obvious pericholecystic inflammatory changes. PANCREAS: Unremarkable. SPLEEN: Unremarkable. ADRENAL GLANDS: Bilateral mild thickening suggestive of hyperplasia. KIDNEYS AND URETERS: -The right kidney is moderately atrophic in comparison with the left. No renal masses, hydronephrosis, or calculi identified. The proximal ureters are normal. BLADDER: Completely decompressed, limiting evaluation. Grossly no abnormality. GASTROINTESTINAL TRACT: -There is moderate diverticulosis of entire colon. No wall thickening, or inflammatory changes identified. -Mild rectal wall thickening is present, possibly secondary to underdistention although proctitis is not excluded. -Small bowel is normal in caliber and course. No wall thickening or inflammation. -Normal appendix visualized. ABDOMINAL WALL: No significant hernia is appreciated. LYMPH NODES: -No abnormal lymphadenopathy. VASCULAR: -Moderate aortic and biiliac atheromatous calcification. No aneurysm. PELVIC VISCERA: The prostate and seminal vesicles are unremarkable. OSSEOUS STRUCTURES: Unremarkable. CT/CT abdomen pelvis wo IV con IMPRESSION: 1. No acute findings in the abdomen or pelvis. 2. There is moderate right renal atrophy in comparison with the left. No calculi or hydronephrosis. 3. There is moderate pancolonic diverticulosis. No inflammation or wall thickening. 4. Mild wall thickening of the rectum diffusely, possibly secondary to underdistention although a mild proctitis is also a possibility. 5. Lung bases demonstrate mild thickening of the small airways and mosaic attenuation. Suggest chronic bronchitis. Electronically signed by: Tristan Bhandari MD 05/19/2024 04:33 PM [facility]
--- NOTE | ~2024-05-19 | US_ITS ---
CLINICAL HISTORY: Vlad US Renal Comparison: CT/MN/SR - CT ABDOMEN PELVIS WO IV CON - 05/19/24 15:49 EST Findings: Right kidney normal echotexture, 8.5 cm length. A 0.7 cm hypoechoicexophytic structure at the midpole is too small to characterize. Left kidney normal echotexture, 12.0 cm length. No hydronephrosis of either kidney. Normal color Doppler. IMPRESSION: No evidence of hydronephrosis. This document has been electronically signed by: Unruly Ballesteros DO on 05/21/2024 12:52:45
--- NOTE | ~2024-05-19 | IR_ITS ---
CLINICAL HISTORY: Patient requires dialysis. The patient presents to interventional radiology for placement of a non-tunneled central venous catheter for hemodialysis. PROCEDURES: 1. Real-time ultrasound-guided access into the right internal jugular vein after documentation of selected vessel patency, and permanent imaging storing in the patient record. 2. Placement of a 12.0 fr 20 cm non-tunneled, triple-lumen hemodialysis catheter. Clinician: Fabrice Dean PA-C MEDICATIONS: -Lidocaine 1% 10 mL SQ. -For additional details, please see nursing flowsheet. COMPLICATIONS: None. ESTIMATED BLOOD LOSS: <5 ml SPECIMENS: None FLUOROSCOPY TIME: 1.7 min PROCEDURE NOTE: The procedure, risks, benefits, and alternatives were carefully explained to patient, and written informed consent was obtained. The patient was placed supine on the fluoroscopy table. A timeout was performed. The right neck and chest was prepped and draped in usual sterile fashion. Local anesthesia was administered to the access site with lidocaine. Under ultrasound guidance, the right internal jugular vein was accessed with a 4 Fr micropuncture set. A 0.035 in wire was advanced into the IVC. The tract in the vein was serially dilated. Over the wire, a 12.0 fr 20 non-tunneled, triple-lumen hemodialysis catheter was advanced, with the tip located at the cavoatrial junction. The wire was removed. The catheter was tested, flushed, and sutured to the skin. A permanent fluoroscopic image of the chest was saved to PACS. The catheter ports were packed with heparin per routine protocol. The patient was stable after the procedure and was transferred to the medical floor. There were no immediate complications. FINDINGS: 1. Patent right internal jugular vein. 2. Placement of a non-tunneled, triple-lumen hemodialysis catheter as above. 3. Catheter flushes and aspirates very well with a 10 mL syringe. No pneumothorax. IR/IR cvc insert non tunnel IMPRESSION: Placement of a non-tunneled hemodialysis catheter in the right internal jugular vein. PLAN: -The catheter may be used immediately. This procedure was performed by Fabrice Dean PA-C, and directly supervised by Dr. Shirley. Electronically signed by: Jalen Shirley MD 05/22/2024 02:20 PM [facility]
--- NOTE | ~2024-05-19 | CT_ITS ---
Acute kidney injury PROCEDURES: 1. Limited preprocedure CT of the abdomen. Permanent images saved in PACS. 2. CT-guided nontargeted biopsy of the left kidney. 3. Limited postprocedure CT of the abdomen. Permanent images saved in PACS. CLINICIANS: Fabrice Dean PA-C MEDICATIONS: -Versed 1.5 mg, Fentanyl 75 mcg, and lidocaine 1% 10 mL SQ - Hydralazine 20 mg, labetalol 20 mg -Antibiotics: None -For additional details, please see nursing flowsheet. COMPLICATIONS: None ESTIMATED BLOOD LOSS: < 5 ml CONTRAST: None SPECIMENS: 3 x 18 g cores were placed in saline MODERATE SEDATION TIME: 22 min PROCEDURE NOTE: The procedure, risks, benefits, and alternatives were carefully explained to the patient and written informed consent was obtained. The patient was placed prone on the CT table. A timeout was performed. A limited CT of the abdomen was performed to localize the left kidney and choose appropriate needle entry and trajectory. The patient was prepped and draped in usual sterile fashion. The skin and deeper soft tissues were anesthetized with lidocaine. Under CT guidance, a 17 gauge trocar needle was advanced to the left lower pole of the kidney. An 18 gauge biopsy device was inserted through the trocar needle advanced into the left kidney. A total of 3, 18 gauge cores were performed. The specimens were placed in saline. A Gelfoam slurry was then administered through the trocar needle and into the left perinephric space. The needle was removed. A dry dressing was applied and secured with Tegaderm. There were no immediate complications. The patient was stable after the procedure and was transferred to the post anesthesia care unit. The procedure was done under moderate sedation with a dedicated nurse for monitoring of vital signs. CT/CT biopsy renal LT Impression: CT-guided nontargeted left renal biopsy This procedure was performed by Fabrice Dean PA-C and supervised by Dr. Shirley. Electronically signed by: Jalen Shirley MD 06/03/2024 01:47 PM [facility] [place]
--- NOTE | ~2024-05-19 | IR_ITS ---
CLINICAL HISTORY: End-stage renal disease. The patient presents to interventional radiology for placement of a tunneled central venous catheter for hemodialysis. PROCEDURES: 1. Real-time ultrasound-guided access into the right internal jugular vein after documentation of selected vessel patency, and permanent imaging storing in the patient record. 2. Placement of a 14.5 fr 23 cm tunneled, dual-lumen hemodialysis catheter. Clinician: Fabrice Dean PA-C MEDICATIONS: -Fentanyl 75 mcg, Lidocaine 1% 10 mL SQ. -Antibiotics: Ancef -For additional details, please see nursing flowsheet. COMPLICATIONS: None. ESTIMATED BLOOD LOSS: <5 ml SPECIMENS: None FLUOROSCOPY TIME: 2.9 min PROCEDURE NOTE: The procedure, risks, benefits, and alternatives were carefully explained to patient, and written informed consent was obtained. The patient was placed supine on the fluoroscopy table. A timeout was performed. The right neck and chest was prepped and draped in usual sterile fashion. Local anesthesia was administered to the access site with lidocaine. Under ultrasound guidance, the right internal jugular vein was accessed with a 5 Fr micropuncture set. A 0.035 in wire was advanced to the IVC to maintain access during the tunneling process. Next, subcutaneous lidocaine was administered to the chest. Using blunt dissection, a subcutaneous tunnel was created that connects from the upper chest to the venotomy site. The dialysis catheter was pulled through the tunnel. The tract in the vein was dilated and a peel-away sheath was advanced over the wire. The catheter was advanced through the sheath, which was subsequently peeled away. The catheter was tested, flushed, and sutured to the skin with its tip in the high right atrium. A permanent fluoroscopic image of the chest was saved to PACS. The catheter ports were packed with heparin per routine protocol. The right neck Javier catheter was removed entirely. A dry dressing was applied to the venotomy site. FINDINGS: 1. Patent right internal jugular vein. 2. Placement of a tunneled, dual-lumen hemodialysis catheter as above. 3. Catheter flushes and aspirates very well with a 10 mL syringe. No pneumothorax. IR/IR cvc insert central tunnel IMPRESSION: Placement of a tunneled hemodialysis catheter in the right internal jugular vein and removal of the non-tunneled dialysis catheter. PLAN: -The catheter may be used immediately. This procedure was performed by Fabrice Dean PA-C, and directly supervised by Dr. Shirley. Electronically signed by: Jalen Shirley MD 06/03/2024 01:47 PM EST
--- NOTE | 2024-05-19 09:08 | ECG_ITS ---
Test Reason : chest pain Blood Pressure : */* mmHG Vent. Rate : 113 BPM Atrial Rate : 113 BPM P-R Int : 138 ms QRS Dur : 90 ms QT Int : 340 ms P-R-T Axes : 54 -47 90 degrees QTcB Int : 466 ms Sinus tachycardia Possible Left atrial enlargement Left anterior fascicular block Minimal voltage criteria for LVH, may be normal variant ( [place] product ) Nonspecific T wave abnormality Abnormal ECG When compared with ECG of 19-Sep-2022 14:50, Nonspecific T wave abnormality, worse in Lateral leads Referred By: Generic ED Physician Electronically Signed By: IAN ENGLISH MD
[2024-05-19 09:23] VITALS: BP 147/87; PULSE 118; RESP 16; TEMP 36.8; O2SAT 96; BMI 26.6
[2024-05-19 09:49] LABS: MANUAL DIFF FLAG NO
[2024-05-19 09:55] LABS: Basophils Percent Auto 0.1 % (0-2); Hematocrit 42.2 % (42.0-52.0); Hemoglobin 14.4 g/dl (14.0-18.0); Imm Gran Abs Auto 0.03 X10*3/uL (0.00-0.03); Imm Gran Pct Auto 0.4 % (0.0-0.4); Lymphocytes Absolute Auto 0.6 X10*3/uL (1.2-4.9); Lymphocytes Percent Auto 7.6 % (20-40); Mean Corpuscular HGB Conc 34.1 g/dl (31.0-36.0); Mean Corpuscular Hemoglobin 28.5 pg (27.0-33.0); Mean Corpuscular Volume 83.6 fL (80.0-98.0); Mean Platelet Volume 8.9 fL (9.4-12.4); Monocytes Absolute Auto 0.2 X10*3/uL (0.1-1.2); Monocytes Percent Auto 2.3 % (2-11); Neutrophils Absolute Auto 7.3 x10*3/uL (2.0-8.3); Neutrophils Percent Auto 89.6 % (45-73); Platelet Count 235 X10*3/uL (160-400); Red Blood Count 5.05 X10*6/uL (4.60-5.80); Red Cell Distribution Width 13.3 % (11.0-16.0); White Blood Count 8.2 X10*3/uL (4.8-10.8)
[2024-05-19 10:00] LABS: IDNOW Serial# 58CA691E; Strep A Nucleic Acid Negative (Negative)
[2024-05-19 10:12] LABS: Troponin-I High Sensitivity 4.2 ng/L (<3.5-35.0)
[2024-05-19 10:13] LABS: Albumin Level 4.5 g/dL (3.5-5.0); Alkaline Phosphatase 80 U/L (39-117); Anion Gap 20 (12-20); Aspartate Amino Transferase 29 U/L (5-37); Bilirubin Total 0.4 mg/dL (0.0-1.0); Blood Urea Nitrogen 43 mg/dL (9-16); Calcium 9.1 mg/dL (8.4-10.2); Carbon Dioxide 29 mmol/L (22-29); Chloride 95 mmol/L (96-108); Creatinine Clr Calc Pharmacy 22.5; Estimated Glomerular Filt Rate 17; Glucose Random 190 mg/dL (60-115); Sodium 140 mmol/L (135-145); Total Protein 7.7 g/dL (6.5-8.0)
[2024-05-19 10:24] LABS: Alanine Aminotransferase 44 U/L (0-40)
[2024-05-19 14:09] VITALS: BP 164/88; PULSE 118; RESP 20; TEMP 36.7; O2SAT 99
--- NOTE | 2024-05-19 14:09 | ED.GENADULT ---
HPI - General Adult General Chief complaint: Upper Respiratory Symptoms Stated complaint: Chest pain L side, disoriented, vomiting Time Seen by Provider: 05/19/24 14:38 Source: patient, RN notes reviewed and old records reviewed Mode of arrival: ambulatory History of Present Illness ED Provider: Sharri Bowie PA-C [facility] narrative: 59-year-old male with a past medical history of HTN, asthma, CVA, presenting to the ED c/o dry cough, left-sided abdominal pain, nausea, vomiting, and diarrhea since last night. Denies chest pain, shortness of breath, dysuria/hematuria, testicular pain /swelling, constipation. Related Data Home Medications ?Medication ?Instructions ?Recorded ?Confirmed multivitamin 1 tab PO DAILY 09/19/22 09/19/22 omeprazole 20 mg capsule,delayed 20 mg PO DAILY 09/19/22 09/19/22 release umeclidinium 62.5 mcg-vilanterol 1 inh inhalation DAILY 09/19/22 09/19/22 25 mcg/actuation powdr for inhalation (Anoro Ellipta) Previous Rx's ?Medication ?Instructions ?Recorded aspirin 81 mg chewable tablet 81 mg PO DAILY #30 tabs 09/21/22 atorvastatin 80 mg tablet 80 mg PO DAILY #30 tabs 09/21/22 lisinopril 5 mg tablet 5 mg PO DAILY #30 tabs 09/21/22 Allergies Allergy/AdvReac Type Severity Reaction Status Date / Time No Known Allergies Allergy Verified 05/19/24 09:26 Review of Systems Review of Systems: Yes all other systems are reviewed and are negative Constitutional: Constitutional: Reports as per [facility] Past Medical History Attestation statement: The following information was validated with the patient. Source: old records reviewed Medical History Asthma Hypertension Social History Social History Household Members: Family Housing: Apartment Do you presently have visiting nurse or other home services: No Alcohol intake: former Patient Tobacco Use Status: Current everyday Tobacco user Tobacco use type: Cigarette Cigarette Packs Per Day: 1 Cigarettes Per Day: 20.0 Smoked in Last 30 Days: Yes e-Cigarette/Vaping Use: Never Used Second Hand Smoke Exposure: No Use of substances other than those prescribed or required for medical reasons: No Advance Directives: No Advance Directives Information Provided: Yes Do you have a plan to hurt others: No Plan service: No Current occupational status: employed Physical Exam ED Vital Signs: Vital Signs - 24 hr 05/19/24 09:23 05/19/24 14:09 05/19/24 15:22 Temperature 98.2 F 98.1 F Pulse Rate 118 H 118 H Respiratory Rate 16 20 Blood Pressure 147/87 H 164/88 H Pulse Oximetry 96 99 Oxygen Delivery Method Room Air Room Air Room Air BMI result Body Mass Index 26.6 Const General: cooperative, healthy appearing and no acute distress Orientation/consciousness: patient oriented x3 Limitations: no limitations HENMT Head: Yes normal to inspection and Yes atraumatic Ears: hearing grossly normal bilaterally General nose exam: Normal external nose present Face and sinus: Yes normal facial exam Eyes General: appearance normal, both eyes and all related structures EOM: EOMs intact bilaterally Neck Neck: Yes normal visual inspection and Yes no meningeal signs Resp Effort & Inspection: normal respiratory effort and no respiratory distress Auscultation: clear to auscultation bilaterally Cardio Rate: regular rate Heart sounds: S1 normal heart sound present and S2 normal heart sound present GI Inspection: Yes normal to inspection Palpation (GI): Soft to palpation, Tenderness to palpation present (GI) in the LLQ; with no rebound tenderness, no guarding and not rigid General: Yes no CVA tenderness Back/Spine/Pelvis Back: no CVA tenderness Skin Rashes: no rashes Wounds: no wounds Neuro General: patient oriented x3, tone normal and no meningeal signs Cranial nerves: Yes CN's II-XII intact bilaterally Gait exam (Neuro): Normal gait present Extrem General: Yes normal to inspection Course Course Course Narrative: This is a Rapid Medical Examination (RME) performed by No Fajardo PA-C in triage. Full HPI, ROS, assessment and treatment plan per primary provider in the Main ED. 59 yo with history of HTN, CVA, asthma, who presents to the ER for evaluation of N/V/D since yesterday. he has had abdominal pain in the left side. labs reviewed - has an RAMONITA. revitaled and he is tachycardic. Plan: IVF, UA and urine lytes, CT abd/pelvis -1446-- no leukocytosis. +RAMONITA with BUN of 43, creatinine 3.64 > Suspect from obstructive pathology. Continued low suspicion for severe sepsis. No evidence of infection at this time - troponin negative XR chest 2V IMPRESSION: Low lung volumes with bronchovascular crowding. No definite active pulmonary disease. 1707-- CT abdomen pelvis wo IV con IMPRESSION: 1. No acute findings in the abdomen or pelvis. 2. There is moderate right renal atrophy in comparison with the left. No calculi or hydronephrosis. 3. There is moderate pancolonic diverticulosis. No inflammation or wall thickening. 4. Mild wall thickening of the rectum diffusely, possibly secondary to underdistention although a mild proctitis is also a possibility. 5. Lung bases demonstrate mild thickening of the small airways and mosaic attenuation. Suggest chronic bronchitis. > on re-evaluation CT results discussed, patient reports continued pain. Patient is sexually active with females only, denies rectal pain, bloody stools, melena, foreign object inside rotation. Will test for gonorrhea/ chlamydia, syphilis, HSV, and give empiric IM Rocephin/ IV doxycycline and plan for admission Medications Administered Discontinued Medications Generic Name Dose Route Start Last Admin Trade Name Freq PRN Reason Stop Dose Admin Lactated Ringer's 1,000 mls @ 999 mls/hr 05/19/24 14:15 05/19/24 14:30 Lr IV 05/19/24 15:15 999 mls/hr .Q1H1M ALEXIS Administration Sodium Chloride 1,000 mls @ 999 mls/hr 05/19/24 15:15 05/19/24 15:14 Ns IV 05/19/24 16:15 999 mls/hr .Q1H1M ALEXIS Administration Morphine Sulfate 4 mg 05/19/24 15:04 05/19/24 15:14 Morphine Sulfate 4 Mg/Ml Cartridge IVPUSH 05/19/24 15:05 4 mg ONCE ONE Administration Protocol Ondansetron HCl 4 mg 05/19/24 14:12 05/19/24 14:30 Ondansetron Hcl 4 Mg/2 Ml Vial IVPUSH 05/19/24 14:13 4 mg ONCE ONE Administration Medical Decision Making Medical Decision Making MDM Narrative: 59-year-old male with a past medical history of HTN, asthma, CVA, presenting to the ED c/o dry cough, left-sided abdominal pain, nausea, vomiting, and diarrhea since last night. On exam tachycardic likely from pain, NAD, appears uncomfortable, abdomen soft with left lower quadrant tenderness, no rebound or guarding, no CVAT. Concern for renal stone vs pyelo vs diverticulitis /colitis. Lower suspicion for pneumonia, PE, pneumothorax or costochondritis at this time. Low suspicion for severe sepsis Plan: EKG, labs, UA, CXR, viral studies, CT AP, IVF, re-evaluate Please refer to course for remaining clinical decision making, interpretation of labs/imaging results, and discussions with consultants and/or family members. Differential Diagnosis Differential Diagnoses: The differential diagnosis associated with the presentation includes As above Admission/Observation Consideration of admission/observation: Escalation of care including admission/observation considered Lab Data MDM Lab Attestation statement: I reviewed the patient's lab results. 05/19/24 09:46 05/19/24 09:46 Labs: Lab Results 05/19/24 Range/Units 09:46 WBC 8.2 (4.8-10.8) X10*3/uL RBC 5.05 (4.60-5.80) X10*6/uL Hgb 14.4 (14.0-18.0) g/dl Hct 42.2 (42.0-52.0) % MCV 83.6 (80.0-98.0) fL MCH 28.5 (27.0-33.0) pg MCHC 34.1 (31.0-36.0) g/dl RDW 13.3 (11.0-16.0) % Plt Count 235 (160-400) X10*3/uL MPV 8.9 L (9.4-12.4) fL Immature Gran % (Auto) 0.4 (0.0-0.4) % Neut % (Auto) 89.6 H (45-73) % Lymph % (Auto) 7.6 L (20-40) % Sequoyah % (Auto) 2.3 (2-11) % Eos % (Auto) 0.0 (0-4) % Baso % (Auto) 0.1 (0-2) % Lymph # (Auto) 0.6 L (1.2-4.9) X10*3/uL Sequoyah # (Auto) 0.2 (0.1-1.2) X10*3/uL Eos # (Auto) 0.0 (0.0-0.4) X10*3/uL Baso # (Auto) 0.0 (0.0-0.2) X10*3/uL Abs Immat Gran (auto) 0.03 (0.00-0.03) X10*3/uL Absolute Neuts (auto) 7.3 (2.0-8.3) x10*3/uL Absolute Nucleated RBC 0.000 (0.0-0.012) X10*3/uL Nucleated RBC % (auto) 0.0 (0.0-0.2) /100WBC Sodium 140 (135-145) mmol/L Potassium 4.0 (3.3-5.1) mmol/L Chloride 95 L (96-108) mmol/L Carbon Dioxide 29 (22-29) mmol/L Anion Gap 20 (12-20) BUN 43 H (9-16) mg/dL Creatinine 3.64 H (0.5-1.4) mg/dL Estim Creat Clear Calc 22.5 Estimated GFR 17 Random Glucose 190 H (60-115) mg/dL Calcium 9.1 (8.4-10.2) mg/dL Magnesium 1.7 (1.6-2.6) mg/dL Total Bilirubin 0.4 (0.0-1.0) mg/dL AST 29 (5-37) U/L ALT 44 H (0-40) U/L Alkaline Phosphatase 80 (39-117) U/L Troponin I High Sens 4.2 D (<3.5-35.0) ng/L Total Protein 7.7 (6.5-8.0) g/dL Albumin 4.5 (3.5-5.0) g/dL S. pyogenes GrpA PABLO Negative (Negative) Independent Interpretation I performed an independent interpretation of an: EKG ( my interpretation EKG sinus tachycardia rate of 113. Nonspecific T-wave abnormality in lateral leads when compared to prior. No STEMI), Plain X-Ray and CT Scan Radiology Impression Discussion of test interpretation with radiology: I have reviewed the radiologist's reading. External Record Review External record reviewed: Inpatient record, Office record, Outpatient record, Prior outpatient labs, Prior outpatient radiology, Primary care record and Outside ED record Tests considered The following testing was considered but not selected: As above Prescription Management I considered prescription management with: Pain Medication Chronic Conditions Patient?s care impacted by: Other (asthma) Social Determinants Patient?s care significantly limited by Social Determinants of Health including: Other Social Determinant of Health Discharge Plan Discharge Clinical Impression: RAMONITA (acute kidney injury), Acute proctitis, Abdominal pain Patient Disposition: Admitted As Inpatient Print Language: Cambodian
[2024-05-19] MEDS: Lactated Ringers 1,000 ML 999 ML IV (14:30)
[2024-05-19] MEDS: ondansetron HCL 4 MG/2 ML VIAL IVPUSH (14:30)
[2024-05-19] MEDS: Morphine Sulfate 4 MG/ML CARTRIDGE IVPUSH ×3 (15:14→22:15)
[2024-05-19] MEDS: 0.9 % Sodium Chloride 1,000 ML 999 ML IV (15:14)
[2024-05-19 15:28] LABS: Magnesium 1.7 mg/dL (1.6-2.6)
[2024-05-19] MEDS: cefTRIAXone sodium 500 MG, Lidocaine HCl 1 % MPF 1 ML IM (17:48)
[2024-05-19] MEDS: Doxycycline Hyclate 100 MG in 0.9 % Sodium Chloride 250 ML 166.67 MG IV (17:49)
[2024-05-19 17:56] LABS: Anion Gap 19 (12-20); Blood Urea Nitrogen 50 mg/dL (9-16); Calcium 8.6 mg/dL (8.4-10.2); Carbon Dioxide 28 mmol/L (22-29); Chloride 95 mmol/L (96-108); Creatinine Clr Calc Pharmacy 17.3; Estimated Glomerular Filt Rate 13; Glucose Random 126 mg/dL (60-115); Potassium 3.8 mmol/L (3.3-5.1); Sodium 138 mmol/L (135-145)
[2024-05-19 17:57] LABS: Lactic Acid 2.1 mmol/L (0.5-2.0)
--- NOTE | 2024-05-19 18:24 | PM.IMHP ---
History of Present Illness Date of Service: 05/19/24 Chief Complaint: Vomiting abdominal pain, cough 59-year-old male with history of diabetes, hypertension who presented to the ED with much more compliant. He states that he has been having cough for about a week, having wheezing with some left-sided chest pain. Yesterday he described having much full episode of diarrhea nausea and vomiting and some abdominal pain in left lower quadrant area. He has no fever or chill no urinary symptoms. He is not describing any shortness of breath. His chest pain that he is describing is associated with a cough. Workup in the emergency room include normal WBC. He has elevated creatinine of 4.74, his last creatinine in August 2022 was 1.04. She denies any urinary symptoms. A CT scan of the abdomen and pelvis was done with finding of Mild wall thickening of the rectum diffusely, possibly secondary to underdistention although a mild proctitis is also a possibility, and chronic bronchitis changes at the lung base. He has been given doxycycline and ceftriaxone. He has not had any further diarrhea today Review of Systems Review of Systems: Gen: no fever Resp: no sob, no cough CV: no chest, no IVEY, no leg edema GI: No n/v, no abd pain Neuro: No confusion Yes all other systems are reviewed and are negative [facility] Medical History (Updated 05/19/24 @ 18:30 by Ra Carlos MD) HLD (hyperlipidemia) Non-insulin dependent type 2 diabetes mellitus Asthma Hypertension Social History Household Members: Family Housing: Apartment Do you presently have visiting nurse or other home services: No Alcohol intake: former Patient Tobacco Use Status: Current everyday Tobacco user Tobacco use type: Cigarette Cigarette Packs Per Day: 1 Cigarettes Per Day: 20.0 Smoked in Last 30 Days: Yes e-Cigarette/Vaping Use: Never Used Second Hand Smoke Exposure: No Use of substances other than those prescribed or required for medical reasons: No Advance Directives: No Advance Directives Information Provided: Yes Do you have a plan to hurt others: No Plan service: No Current occupational status: employed Meds Allergies Allergy/AdvReac Type Severity Reaction Status Date / Time No Known Allergies Allergy Verified 05/19/24 09:26 Active Medications: Current Medications Glucose (Glucose Gel 15 Gm Gel..Gram.) 15 gm PO Q15M PRN; Protocol PRN Reason: per Hypoglycemia Standing Ord. Doxycycline Hyclate 100 mg/ (Sodium Chloride) 250 mls @ 166.67 mls/hr IV ONCE ONE Stop: 05/19/24 18:47 Last Admin: 05/19/24 17:49 Dose: 166.67 mls/hr Dextrose (D10) 250 mls @ 750 mls/hr IV Q15M PRN; Protocol PRN Reason: per Hypoglycemia Standing Ord. Lactated Ringer's (Lr) 1,000 mls @ 125 mls/hr IVCONT .Q8H ALEXIS Insulin Human Lispro (Insulin Lispro 100 Unit/Ml 3 Ml Vial) 0 unit SUBCUT QIDACHS ALEXIS; Protocol Home Medications ?Medication ?Instructions ?Recorded ?Confirmed ?Last Taken ?Type multivitamin 1 tab PO DAILY 09/19/22 09/19/22 09/19/22 History omeprazole 20 mg capsule,delayed 20 mg PO DAILY 09/19/22 09/19/22 09/18/22 History release hydrochlorothiazide 25 mg tablet 25 mg PO DAILY 05/19/24 Unknown History metformin 500 mg tablet 500 mg PO BID 05/19/24 Unknown History Physical Exam Vital Signs and Narrative: Vital Signs: Last Vital Signs Temp 98.1 F 05/19/24 14:09 Pulse 118 H 05/19/24 14:09 Resp 20 05/19/24 14:09 BP 164/88 H 05/19/24 14:09 Pulse Ox 99 05/19/24 14:09 O2 Del Method Room Air 05/19/24 15:22 BMI result Body Mass Index 26.6 Results Labs 05/19/24 09:46 05/19/24 17:23 Labs: Laboratory Results - last 24 hr 05/19/24 05/19/24 09:46 17:23 MCV 83.6 MCH 28.5 MCHC 34.1 RDW 13.3 Plt Count 235 MPV 8.9 L Immature Gran % (Auto) 0.4 Neut % (Auto) 89.6 H Lymph % (Auto) 7.6 L Maverick % (Auto) 2.3 Eos % (Auto) 0.0 Baso % (Auto) 0.1 Lymph # (Auto) 0.6 L Ma[place]ick # (Auto) 0.2 Eos # (Auto) 0.0 Baso # (Auto) 0.0 Abs Immat Gran (auto) 0.03 Absolute Neuts (auto) 7.3 Absolute Nucleated RBC 0.000 Nucleated RBC % (auto) 0.0 Anion Gap 20 19 Estim Creat Clear Calc 22.5 17.3 Estimated GFR 17 13 Random Glucose 190 H 126 H Lactic Acid 2.1 H* Calcium 9.1 8.6 Magnesium 1.7 Total Bilirubin 0.4 AST 29 ALT 44 H Alkaline Phosphatase 80 Troponin I High Sens 4.2 D Total Protein 7.7 Albumin 4.5 S. pyogenes GrpA PABLO Negative Imaging Radiologist's Impressions: Impressions Chest X-Ray 05/19/24 09:27 IMPRESSION: Low lung volumes with bronchovascular crowding. No definite active pulmonary disease. Electronically signed by: Tristan Bhandari MD 05/19/2024 10:01 AM EST RP Abdomen/Pelvis CT 05/19/24 15:49 IMPRESSION: 1. No acute findings in the abdomen or pelvis. 2. There is moderate right renal atrophy in comparison with the left. No calculi or hydronephrosis. 3. There is moderate pancolonic diverticulosis. No inflammation or wall thickening. 4. Mild wall thickening of the rectum diffusely, possibly secondary to underdistention although a mild proctitis is also a possibility. 5. Lung bases demonstrate mild thickening of the small airways and mosaic attenuation. Suggest chronic bronchitis. Electronically signed by: Tristan Bhandari MD 05/19/2024 04:33 PM EST RP Assessment and Plan (1) Acute proctitis: Status: Acute (2) Abdominal pain: Status: Acute (3) Hypertension: Status: Acute (4) RAMONITA (acute kidney injury): Status: Acute (5) Asthma: Status: Acute Plan 59-year-old male with diabetes, hypertension, hyperlipidemia, presented with some abdominal discomfort nausea vomiting diarrhea, cough with pleuritic chest pain and is found to have acute Kidney Injury, proctitis and bronchitis RAMONITA--suspect pre renal state -hydrate with ivf and rehcech in morning -nephrology consult -urine studies -US of kidney if not impoving by tomorrow Proctitis--started on ceftriaone in ED, continue, add flagyl Bronchitis--breathing treatment and ceftriaone as above Diabetes--hold metfromin and give sliding scvale insulin, diabetic diet Hypertension--resume home meds Hyperlipidemia--statin dvt prophylaxis--lovenox full code Admission for at least 2 midnight to treat the above issues, Quality Stroke Does the patient have a stroke diagnosis?: No VTE Prior VTE?: No VTE Risk Level:: Medical - moderate - high VTE Device Contraindication: Treatment Not Indicated VTE Drug Contraindication: N/A - Med Ordered
--- NOTE | 2024-05-19 18:54 | PHA.MEDREC ---
Addendum entered by Champ De La Cruz RPh 05/19/24 19:03: There's no pharmacy claim for the Anoro inhaler but patient had it with him (without a box) and 20 puffs left in the inhaler. Med rec was reviewed by [facility]. Original Note: Pharmacy Consult ? Medication Reconciliation Pharmacy has completed the medication reconciliation. Spoke to patient to confirm med list. Patient had bottles of medication with him. all bottles match claims.
[2024-05-19 19:20] VITALS: BP 158/82; PULSE 96; RESP 20; TEMP 36.7; O2SAT 95
[2024-05-19] MEDS: metroNIDAZOLE/NS 500 MG/100 ML PIGGYBACK 100 MG IV (19:22)
[2024-05-19] MEDS: Lactated Ringers 1,000 ML 125 ML IVCONT (19:22)
[2024-05-19 19:30] LABS: Reflex Lactate? Lactic Acid Added
[2024-05-19 20:23] LABS: ~Lactic Acid-LAB USE ONLY 1.3 mmol/L (0.5-2.0)
[2024-05-19 21:06] LABS: Glucose, Whole Blood 107 mg/dL (60-115)
[2024-05-19 21:15] VITALS: BP 162/72; PULSE 100; RESP 17; TEMP 36.7; O2SAT 98
--- NOTE | 2024-05-19 21:24 | PC.NURSE ---
Patient c/o 10/10 pain, no prn ordered, Dr. Jono jeong, 1x morphine dose ordered.
[2024-05-19 22:13] VITALS: BP 169/80; PULSE 89; RESP 16; O2SAT 98
--- NOTE | 2024-05-19 22:15 | PC.NURSE ---
Patient still unable to provide urine sample, bladder scan completed, 7 ccs noted.
[2024-05-20] VITALS (8 sets, daily range): BP systolic 154–179; BP diastolic 70–88; PULSE 73–93; RESP 16–20; TEMP 36.2–36.8; O2SAT 95–97; BMI 28.9
[2024-05-20] MEDS: Acetaminophen 325 MG TABLET 650 MG PO (03:14)
[2024-05-20] MEDS: Lactated Ringers 1,000 ML 125 ML IVCONT ×4 (03:14→22:20)
[2024-05-20] MEDS: metroNIDAZOLE/NS 500 MG/100 ML PIGGYBACK 100 MG IV ×3 (03:14→19:12)
[2024-05-20 06:22] LABS: Anion Gap 18 (12-20); Blood Urea Nitrogen 58 mg/dL (9-16); Calcium 7.8 mg/dL (8.4-10.2); Carbon Dioxide 25 mmol/L (22-29); Chloride 95 mmol/L (96-108); Creatinine Clr Calc Pharmacy 13.1; Estimated Glomerular Filt Rate 9; Glucose Random 129 mg/dL (60-115); Potassium 3.8 mmol/L (3.3-5.1); Sodium 134 mmol/L (135-145)
[2024-05-20 07:27] LABS: Glucose, Whole Blood 135 mg/dL (60-115)
[2024-05-20] MEDS: ondansetron HCL 4 MG/2 ML VIAL IVPUSH (07:34)
--- NOTE | 2024-05-20 07:47 | PC.NURSE ---
Patient dry heaving this morning, medicated per JUN with PRN zofran. Pt reporting he is still unable to void urine this morning, bladder scan done with no detectable amount of urine. Two different people attempted bladder scan
[2024-05-20 08:26] LABS: Syphilis Screen Nonreactive (Nonreactive)
--- NOTE | 2024-05-20 08:56 | P.CONNP_ITS ---
History of Present Illness Reason for Consult Consult date: 05/20/24 Chief Complaint Chief complaint: RAMONITA, proctitis History of Present Illness Narrative: 59-year-old male with history of diabetes, hypertension who presented to the ED with much more compliant. He states that he has been having cough for about a week, having wheezing with some left-sided chest pain. Yesterday he described having much full episode of diarrhea nausea and vomiting and some abdominal pain in left lower quadrant area. He has no fever or chill no urinary symptoms. He is not describing any shortness of breath. His chest pain that he is describing is associated with a cough. Workup in the emergency room include normal WBC. He has elevated creatinine of 4.74, his last creatinine in August 2022 was 1.04. She denies any urinary symptoms. [facility] Past Medical History Medical History (Updated 05/19/24 @ 18:30 by Ra Carlos MD) HLD (hyperlipidemia) Non-insulin dependent type 2 diabetes mellitus Asthma Hypertension Social History Social History Household Members: Family Housing: Apartment Do you presently have visiting nurse or other home services: No Alcohol intake: former Patient Tobacco Use Status: Current someday Tobacco user Tobacco use type: Cigarette Cigarette Packs Per Day: 1 Cigarettes Per Day: 9 e-Cigarette/Vaping Use: Never Used Second Hand Smoke Exposure: No service: No Current occupational status: employed Meds Allergies Allergy/AdvReac Type Severity Reaction Status Date / Time No Known Allergies Allergy Verified 05/19/24 09:26 Active Medications: Current Medications Acetaminophen (Acetaminophen 325 Mg Tablet) 975 mg PO Q6H [facility] Al Hydroxide/Mg Hydroxide (Magnesium Hydrox/Alum Hydrox 30 Ml Oral.Susp) 30 ml PO Q4H PRN PRN Reason: Heartburn Calcium Carbonate (Calcium Carbonate 750 Mg Tab.Chew) 750 mg PO Q4H PRN PRN Reason: Heartburn Glucose (Glucose Gel 15 Gm Gel..Gram.) 15 gm PO Q15M PRN; Protocol PRN Reason: per Hypoglycemia Standing Ord. Dextrose (D10) 250 mls @ 750 mls/hr IV Q15M PRN; Protocol PRN Reason: per Hypoglycemia Standing Ord. Lactated Ringer's (Lr) 1,000 mls @ 125 mls/hr IVCONT .Q8H [facility] Last Admin: 05/20/24 03:14 Dose: 125 mls/hr Metronidazole (Flagyl) 500 mg in 100 mls @ 100 mls/hr IV Q8H [facility] Last Infusion: 05/20/24 07:29 Dose: Infused Insulin Human Lispro (Insulin Lispro 100 Unit/Ml 3 Ml Vial) 0 unit SUBCUT QIDACHS [facility]; Protocol Last Admin: 05/20/24 07:30 Dose: Not Given Lidocaine HCl (Lidocaine 4 % Cream Kit) 1 appl TOPICAL DAILY [facility]; Protocol Magnesium Hydroxide (Milk Of Magnesia 30 Ml Oral.Susp) 30 ml PO DAILY PRN PRN Reason: Constipation Melatonin (Melatonin 3 Mg Tablet) 6 mg PO BEDTIME PRN PRN Reason: Insomnia Ondansetron HCl (Ondansetron Hcl 4 Mg/2 Ml Vial) 4 mg IVPUSH Q8H PRN PRN Reason: Nausea and Vomiting Last Admin: 05/20/24 07:34 Dose: 4 mg Sodium Chloride (0.9 % Sodium Chloride Flush 3 Ml Syringe) [facility] Last Admin: 05/20/24 07:30 Dose: Not Given Home Medications ?Medication ?Instructions ?Recorded ?Confirmed ?Last Taken ?Type multivitamin 1 tab PO DAILY 09/19/22 05/19/24 05/18/24 History omeprazole 20 mg capsule,delayed 40 mg PO DAILY@0630 09/19/22 05/19/24 05/18/24 History release hydrochlorothiazide 25 mg tablet 25 mg PO DAILY 05/19/24 05/19/24 05/18/24 History lisinopril 5 mg tablet 10 mg PO DAILY 05/19/24 05/19/24 05/18/24 History metformin 500 mg tablet 500 mg PO BID 05/19/24 05/19/24 05/18/24 History umeclidinium 62.5 mcg-vilanterol 1 inh inhalation DAILY 05/19/24 05/19/24 05/18/24 History 25 mcg/actuation powdr for inhalation (Anoro Ellipta) Physical Exam Vital Signs: Last Vital Signs Temp 98.3 F 05/20/24 01:07 Pulse 85 05/20/24 08:25 Resp 18 05/20/24 08:25 BP 154/84 H 05/20/24 08:25 Pulse Ox 96 05/20/24 08:25 O2 Del Method Room Air 05/20/24 08:25 BMI result Body Mass Index 26.6 Results Lab Results 05/19/24 09:46 05/21/24 07:50 Lab results: Chemistry 05/19/24 05/19/24 05/20/24 09:46 17:23 04:41 Sodium 140 138 134 L Potassium 4.0 3.8 3.8 Carbon Dioxide 29 28 25 BUN 43 H 50 H 58 H Creatinine 3.64 H 4.74 H* 6.23 H* Calcium 9.1 8.6 7.8 L D Hematology 05/19/24 09:46 WBC 8.2 Hgb 14.4 Plt Count 235 Assessment and Plan (1) RAMONITA (acute kidney injury): Status: Acute Plan RAMONITA in a 59-year-old man with severe diarrhea. Differential diagnosis would include acute tubular necrosis from hypoperfusion. Obstruction seems unlikely based on recent ultrasonogram. Can not rule out glomerular nephritis yet. Workup ordered. Recommend IV hydration. Watch urine output. No indication for dialysis yet. Procedures Date of Service Date of Service: 05/21/24
[2024-05-20] MEDS: Acetaminophen 325 MG TABLET 975 MG PO ×3 (09:26→20:31)
[2024-05-20] MEDS: Lidocaine 4 % Cream KIT 1 APPL TOPICAL (09:27)
[2024-05-20 12:29] LABS: Glucose, Whole Blood 139 mg/dL (60-115)
--- NOTE | 2024-05-20 14:36 | MHC.CM.PN ---
PATIENT COMES FROM HOME W/ S.O. FUNCTIONALLY INDEPENDENT. DENIES USE OF DME OR SERVICES. PCP JOSEFINA COFFMAN MD NO HCP. CM PROVIDED EDUCATION AND OFFERED ASSISTANCE. PATIENT DECLINED. DP: GOAL IS HOME SELF CARE. S.O. TO TRANSPORT. CM WILL CONTINUE TO FOLLOW.
--- NOTE | 2024-05-20 16:38 | P.PNIM_ITS ---
Subjective Subjective Date of Service: 05/20/24 Interval History: ramonita Review of Systems Had multiple episodes of vomiting 1 day duration at home. Has some left-sided flank pain otherwise no nausea vomiting today Not producing urine Physical Exam 2 Vital Signs: Vital Signs: Last Vital Signs Temp 97.9 F 05/20/24 15:59 Pulse 92 05/20/24 15:59 Resp 18 05/20/24 15:59 BP 166/81 H 05/20/24 15:59 Pulse Ox 95 05/20/24 15:59 O2 Del Method Room Air 05/20/24 15:59 BMI result Body Mass Index 26.6 Appearance: Alert.? Oriented X3.?. cvs: rrr, [id number] , no murmur res: clear to auscultation ,no rhonchii or wheezing abd: no rebound or guarding ,nt, bs present. has some left flank pain ext pulses present , no cyanosis . neuro: axo3 , nonfocal. Objective Data Active Medications Acetaminophen (Acetaminophen 325 Mg Tablet) 975 mg PO Q6H [facility] Last Admin: 05/20/24 14:56 Dose: 975 mg Documented By: STAN Al Hydroxide/Mg Hydroxide (Magnesium Hydrox/Alum Hydrox 30 Ml Oral.Susp) 30 ml PO Q4H PRN PRN Reason: Heartburn Calcium Carbonate (Calcium Carbonate 750 Mg Tab.Chew) 750 mg PO Q4H PRN PRN Reason: Heartburn Glucose (Glucose Gel 15 Gm Gel..Gram.) 15 gm PO Q15M PRN; Protocol PRN Reason: per Hypoglycemia Standing Ord. Dextrose (D10) 250 mls @ 750 mls/hr IV Q15M PRN; Protocol PRN Reason: per Hypoglycemia Standing Ord. Lactated Ringer's (Lr) 1,000 mls @ 125 mls/hr IVCONT .Q8H [facility] Last Admin: 05/20/24 10:19 Dose: 125 mls/hr Documented By: STAN Metronidazole (Flagyl) 500 mg in 100 mls @ 100 mls/hr IV Q8H [facility] Last Infusion: 05/20/24 11:31 Dose: Infused Documented By: STAN Insulin Human Lispro (Insulin Lispro 100 Unit/Ml 3 Ml Vial) 0 unit SUBCUT QIDACHS [facility]; Protocol Last Admin: 05/20/24 12:28 Dose: Not Given Documented By: STAN Non-Admin Reason: No Insulin Coverage Lidocaine HCl (Lidocaine 4 % Cream Kit) 1 appl TOPICAL DAILY [facility]; Protocol Last Admin: 05/20/24 09:27 Dose: 1 appl Documented By: STAN Magnesium Hydroxide (Milk Of Magnesia 30 Ml Oral.Susp) 30 ml PO DAILY PRN PRN Reason: Constipation Melatonin (Melatonin 3 Mg Tablet) 6 mg PO BEDTIME PRN PRN Reason: Insomnia Ondansetron HCl (Ondansetron Hcl 4 Mg/2 Ml Vial) 4 mg IVPUSH Q8H PRN PRN Reason: Nausea and Vomiting Last Admin: 05/20/24 07:34 Dose: 4 mg Documented By: STAN Sodium Chloride (0.9 % Sodium Chloride Flush 3 Ml Syringe) 3 ml IVFLUSH QSHIFT [facility] Last Admin: 05/20/24 15:00 Dose: Not Given Documented By: STAN Non-Admin Reason: IV Running Labs 05/19/24 09:46 05/20/24 04:41 Labs: Laboratory Results - last 24 hr 05/19/24 05/19/24 05/19/24 17:23 19:58 21:01 Anion Gap 19 Estim Creat Clear Calc 17.3 Estimated GFR 13 POC Glucose 107 Random Glucose 126 H Lactic Acid 2.1 H* Lactic Acid F/U @ 2Hr 1.3 Calcium 8.6 T.pallidum Ab (EIA) Nonreactive 05/20/24 05/20/24 05/20/24 04:41 07:24 12:24 Anion Gap 18 Estim Creat Clear Calc 13.1 Estimated GFR 9 POC Glucose 135 H 139 H Random Glucose 129 H Lactic Acid Lactic Acid F/U @ 2Hr Calcium 7.8 L D T.pallidum Ab (EIA) Assessment and Plan (1) Acute proctitis: Status: Acute (2) RAMONITA (acute kidney injury): Status: Acute Assessment and Plan: 59-year-old male with diabetes, hypertension, hyperlipidemia, presented with some abdominal discomfort nausea vomiting diarrhea, cough with pleuritic chest pain and is found to have acute Kidney Injury, proctitis and bronchitis RAMONITA--suspect pre renal state( possible multifactroial -dehydration/meds -hctz and lisnopril). Ua Negative ct abd:There is moderate right renal atrophy in comparison with the left. No calculi or hydronephrosis. not producing much urine plan: continue ivf and moniter renal function and elctrolytes renal function worsening npehrology eval. Proctitis--started on ceftriaxone in ED, continue, add flagyl Bronchitis--breathing treatment and ceftriaone as above Diabetes--hold metfromin and give sliding scvale insulin, diabetic diet Hypertension--resume home meds Hyperlipidemia--statin dvt prophylaxis--lovenox Quality Stroke Does the patient have a stroke diagnosis?: No VTE Prior VTE?: No VTE Risk Level:: Medical - moderate - high VTE Device Contraindication: Treatment Not Indicated VTE Drug Contraindication: N/A - Med Ordered
[2024-05-20 16:49] LABS: Herpes Simplex Type 2 IgG 6.99 index
[2024-05-20 17:24] LABS: Glucose, Whole Blood 130 mg/dL (60-115)
--- NOTE | 2024-05-20 19:26 | PC.NURSE ---
assumed care of patient at this time, pt has family at bedside and reporting increased left flank discomfort and unable to void since yesterday. Bladder scan could no visualize the bladder reached out to inpatient provider no new orders at this time
[2024-05-20] MEDS: HYDROmorphone HCl 0.5 MG/0.5 ML SYRINGE IVPUSH ×2 (19:43→22:31)
[2024-05-20 20:28] LABS: Glucose, Whole Blood 129 mg/dL (60-115)
[2024-05-20] MEDS: 0.9 % Sodium Chloride Flush 3 ML SYRINGE IVFLUSH (22:32)
[2024-05-21] VITALS (7 sets, daily range): BP systolic 148–182; BP diastolic 70–84; PULSE 85–93; RESP 12–25; TEMP 36.8–37.4; O2SAT 94–96
[2024-05-21] MEDS: metroNIDAZOLE/NS 500 MG/100 ML PIGGYBACK 100 MG IV ×3 (03:08→23:33)
[2024-05-21] MEDS: Acetaminophen 325 MG TABLET 975 MG PO ×4 (03:08→20:50)
[2024-05-21] MEDS: HYDROmorphone HCl 0.5 MG/0.5 ML SYRINGE IVPUSH ×4 (03:17→19:27)
[2024-05-21] MEDS: Omeprazole 40 MG CAPSULE.DR PO (05:40)
[2024-05-21] MEDS: Lactated Ringers 1,000 ML 125 ML IVCONT (07:33)
[2024-05-21 07:51] LABS: Glucose, Whole Blood 129 mg/dL (60-115)
[2024-05-21 08:15] LABS: Anion Gap 21 (12-20); Blood Urea Nitrogen 75 mg/dL (9-16); Calcium 7.8 mg/dL (8.4-10.2); Carbon Dioxide 20 mmol/L (22-29); Chloride 95 mmol/L (96-108); Creatinine Clr Calc Pharmacy 9.5; Estimated Glomerular Filt Rate 6; Glucose Random 124 mg/dL (60-115); Sodium 132 mmol/L (135-145)
[2024-05-21 09:36] LABS: VBG Base Excess -1.8 mmol/L; VBG HCO3 22 mmol/L (22-26); VBG pCO2 35 mmHg; VBG pO2 49 mmHg
[2024-05-21 09:36] LABS: Venous Blood Gas Refer to POC result
[2024-05-21] MEDS: Lidocaine 4 % Cream KIT 1 APPL TOPICAL (10:40)
[2024-05-21] MEDS: cefTRIAXone sodium 1 GM VIAL IVPUSH (10:40)
[2024-05-21 11:35] LABS: Glucose, Whole Blood 126 mg/dL (60-115)
--- NOTE | 2024-05-21 12:22 | PC.NURSE ---
1215- patient transported in bed to OR for dialysis catheter placement.
--- NOTE | 2024-05-21 15:02 | P.PNNP_ITS ---
Subjective Subjective Date of Service: 05/21/24 Interval history: ramonita No urine output Repeat her ultrasonogram unremarkable Physical Exam 2 Vital Signs: Vital Signs: Last Vital Signs Temp 98.9 F 05/21/24 13:49 Pulse 86 05/21/24 13:49 Resp 18 05/21/24 13:49 BP 174/82 H 05/21/24 13:49 Pulse Ox 94 05/21/24 13:49 O2 Del Method Room Air 05/21/24 13:49 BMI result Body Mass Index 28.9 Comfortable Neck supple no JVD. Lungs entry equal no rales. Heart S1-S2 heard no gallop or rub. Abdomen soft nontender. Neuro alert awake oriented. No asterixis. Extremities no edema. Objective Data Labs 05/19/24 09:46 05/22/24 06:19 Labs: Laboratory Results - last 24 hr 05/19/24 05/20/24 05/20/24 17:23 17:21 20:24 VBG pH VBG pCO2 VBG pO2 VBG HCO3 VBG O2 Saturation VBG Base Excess Sodium Potassium Chloride Carbon Dioxide Anion Gap BUN Creatinine Estim Creat Clear Calc Estimated GFR POC Glucose 130 H 129 H Random Glucose Calcium Total Creatine Kinase HSV I IgG Ab 35.50 H HSV II IgG 6.99 H 05/21/24 05/21/24 05/21/24 07:14 07:50 09:31 VBG pH 7.40 VBG pCO2 35 VBG pO2 49 VBG HCO3 22 VBG O2 Saturation 81.0 VBG Base Excess -1.8 Sodium 132 L Potassium 4.0 Chloride 95 L Carbon Dioxide 20 L Anion Gap 21 H BUN 75 H Creatinine 9.46 H* Estim Creat Clear Calc 9.5 Estimated GFR 6 POC Glucose 129 H Random Glucose 124 H Calcium 7.8 L Total Creatine Kinase 245 H HSV I IgG Ab HSV II IgG 05/21/24 11:17 VBG pH VBG pCO2 VBG pO2 VBG HCO3 VBG O2 Saturation VBG Base Excess Sodium Potassium Chloride Carbon Dioxide Anion Gap BUN Creatinine Estim Creat Clear Calc Estimated GFR POC Glucose 126 H Random Glucose Calcium Total Creatine Kinase HSV I IgG Ab HSV II IgG Microbiology Microbiology Results: Microbiology 05/19/24 17:44 Blood - Venous Blood Culture - Preliminary No growth after 24 hours. 05/19/24 17:23 Blood - Venous Blood Culture - Preliminary No growth after 24 hours. Procedures Date of Service Date of Service: 05/22/24 Assessment & Plan Assessment and plan (1) RAMONITA (acute kidney injury): Status: Acute Plan RAMONITA Different diagnosis includes ATN/acute glomerular nephritis. Currently anuric. No overt signs or symptoms of uremia. Plan DC IV fluids Avoid insertion of temporary dialysis catheter. Obtain stat labs again. Workup for a GN under way. Check CPK to rule out rhabdo. We will need to start dialysis if he continues to remain anuric Time Spent With Patient Time: Total time managing care of this patient today ____ minutes. Progress Note: Quality Stroke Does the patient have a stroke diagnosis?: No
[2024-05-21 16:18] LABS: Glucose, Whole Blood 117 mg/dL (60-115)
--- NOTE | 2024-05-21 16:18 | P.PNIM_ITS ---
Subjective Subjective Date of Service: 05/21/24 Interval History: ramonita Review of Systems no new nausea vomiting episode still not producing much urine mild lower ext swelling no sob Physical Exam 2 Vital Signs: Vital Signs: Last Vital Signs Temp 99.3 F 05/21/24 15:16 Pulse 86 05/21/24 15:16 Resp 12 05/21/24 15:16 BP 148/70 H 05/21/24 15:16 Pulse Ox 95 05/21/24 15:16 O2 Del Method Room Air 05/21/24 15:16 BMI result Body Mass Index 28.9 Appearance: Alert.? Oriented X3.? cvs: [id number], [id number] , no murmur res: clear to auscultation ,no rhonchii or wheezing abd: no rebound or guarding ,nt, bs present. has some left flank pain ext pulses present , no cyanosis . neuro: axo3 , nonfocal. Objective Data Active Medications Acetaminophen (Acetaminophen 325 Mg Tablet) 975 mg PO Q6H [facility] Last Admin: 05/21/24 15:23 Dose: 975 mg Documented By: BRITTNEY Al Hydroxide/Mg Hydroxide (Magnesium Hydrox/Alum Hydrox 30 Ml Oral.Susp) 30 ml PO Q4H PRN PRN Reason: Heartburn Aspirin (Aspirin 81 Mg Tab.Chew) 81 mg PO DAILY [facility] Last Admin: 05/21/24 10:11 Dose: Not Given Documented By: BRITTNEY Non-Admin Reason: Physician Held Med Atorvastatin Calcium (Atorvastatin Calcium 80 Mg Tablet) 80 mg PO DAILY [facility] Last Admin: 05/21/24 10:12 Dose: Not Given Documented By: BRITTNEY Non-Admin Reason: Physician Held Med Calcium Carbonate (Calcium Carbonate 750 Mg Tab.Chew) 750 mg PO Q4H PRN PRN Reason: Heartburn Ceftriaxone Sodium (Ceftriaxone Sodium 1 Gm Vial) 1 gm IVPUSH Q24H [facility] Last Admin: 05/21/24 10:40 Dose: 1 gm Documented By: BRITTNEY Glucose (Glucose Gel 15 Gm Gel..Gram.) 15 gm PO Q15M PRN; Protocol PRN Reason: per Hypoglycemia Standing Ord. Heparin Sodium (Porcine) (Heparin Sodium,Porcine 5,000 Unit/Ml Vial) 5,000 unit SUBCUT Q8H [facility] Last Admin: 05/21/24 10:12 Dose: Not Given Documented By: BRITTNEY Non-Admin Reason: Physician Held Med Hydromorphone HCl (Hydromorphone Hcl 0.5 Mg/0.5 Ml Syringe) 0.5 mg IVPUSH Q4H PRN; Protocol PRN Reason: Pain, Severe (Pain Scale 7-10) Last Admin: 05/21/24 15:23 Dose: 0.5 mg Documented By: BRITTNEY Dextrose (D10) 250 mls @ 750 mls/hr IV Q15M PRN; Protocol PRN Reason: per Hypoglycemia Standing Ord. Lactated Ringer's (Lr) 1,000 mls @ 125 mls/hr IVCONT .Q8H [facility] Last Admin: 05/21/24 07:33 Dose: 125 mls/hr Documented By: BRITTNEY Metronidazole (Flagyl) 500 mg in 100 mls @ 100 mls/hr IV Q12H [facility] Last Infusion: 05/21/24 14:57 Dose: Infused Documented By: BRITTNEY Insulin Human Lispro (Insulin Lispro 100 Unit/Ml 3 Ml Vial) 0 unit SUBCUT QIDACHS [facility]; Protocol Last Admin: 05/21/24 11:44 Dose: Not Given Documented By: BRITTNEY Non-Admin Reason: No Insulin Coverage Lidocaine HCl (Lidocaine 4 % Cream Kit) 1 appl TOPICAL DAILY [facility]; Protocol Last Admin: 05/21/24 10:40 Dose: 1 appl Documented By: BRITTNEY Magnesium Hydroxide (Milk Of Magnesia 30 Ml Oral.Susp) 30 ml PO DAILY PRN PRN Reason: Constipation Melatonin (Melatonin 3 Mg Tablet) 6 mg PO BEDTIME PRN PRN Reason: Insomnia Multivitamins/Vitamin C (Multivitamin Tablet) 1 tab PO DAILY [facility] Last Admin: 05/21/24 10:12 Dose: Not Given Documented By: BRITTNEY Non-Admin Reason: Physician Held Med Non-Formulary Medication (Umeclidinium-Vilanterol [Anoro Ellipta]) 1 inhalation INHALE RDAILY [facility] Last Admin: 05/21/24 14:34 Dose: Not Given Documented By: MORIAH Non-Admin Reason: Med Not Available Omeprazole (Omeprazole 40 Mg Prerna.) 40 mg PO DAILY@0630 [facility] Last Admin: 05/21/24 05:40 Dose: 40 mg Documented By: OGLA Ondansetron HCl (Ondansetron Hcl 4 Mg/2 Ml Vial) 4 mg IVPUSH Q8H PRN PRN Reason: Nausea and Vomiting Last Admin: 05/20/24 07:34 Dose: 4 mg Documented By: STAN Sodium Chloride (0.9 % Sodium Chloride Flush 3 Ml Syringe) 3 ml IVFLUSH QSHIFT [facility] Last Admin: 05/21/24 08:21 Dose: Not Given Documented By: BRITTNEY Non-Admin Reason: Previously Administered Labs 05/19/24 09:46 05/21/24 07:50 Labs: Laboratory Results - last 24 hr 05/19/24 05/20/24 05/20/24 17:23 17:21 20:24 VBG pH VBG pCO2 VBG pO2 VBG HCO3 VBG O2 Saturation VBG Base Excess Anion Gap Estim Creat Clear Calc Estimated GFR POC Glucose 130 H 129 H Random Glucose Calcium Total Creatine Kinase HSV I IgG Ab 35.50 H HSV II IgG 6.99 H 05/21/24 05/21/24 05/21/24 07:14 07:50 09:31 VBG pH 7.40 VBG pCO2 35 VBG pO2 49 VBG HCO3 22 VBG O2 Saturation 81.0 VBG Base Excess -1.8 Anion Gap 21 H Estim Creat Clear Calc 9.5 Estimated GFR 6 POC Glucose 129 H Random Glucose 124 H Calcium 7.8 L Total Creatine Kinase 245 H HSV I IgG Ab HSV II IgG 05/21/24 11:17 VBG pH VBG pCO2 VBG pO2 VBG HCO3 VBG O2 Saturation VBG Base Excess Anion Gap Estim Creat Clear Calc Estimated GFR POC Glucose 126 H Random Glucose Calcium Total Creatine Kinase HSV I IgG Ab HSV II IgG Microbiology Microbiology Results: Microbiology 05/19/24 17:44 Blood Culture - Preliminary Blood - Venous No growth after 24 hours. 05/19/24 17:23 Blood Culture - Preliminary Blood - Venous No growth after 24 hours. Assessment and Plan (1) Acute proctitis: Status: Acute Plan 59-year-old male with diabetes, hypertension, hyperlipidemia, presented with some abdominal discomfort nausea vomiting diarrhea, cough with pleuritic chest pain and is found to have acute Kidney Injury, proctitis and bronchitis RAMONITA--suspect pre renal state( possible multifactroial -dehydration/meds -hctz and lisnopril). Ua Negative ct abd:There is moderate right renal atrophy in comparison with the left. No calculi or hydronephrosis. not producing much urine cph 245 plan: continue ivf and moniter renal function and elctrolytes renal function worsening, has anion gap ,ph normal , wilkerson nephrology eval-rec hd catheter, stop ivf . urine labs need to send once produces urine. Proctitis--started on ceftriaxone in ED, continue, add flagyl some pain in flank area? reffered vs MS Added lidocaine patch. constipation: passing gases did not have bm for 3-4 days added bowel regimen Bronchitis--breathing treatment and ceftriaone /flagyl as above. Diabetes--hold metfromin and give sliding scvale insulin, diabetic diet Hypertension--resume home meds Hyperlipidemia--statin dvt prophylaxis--s/c heparin Quality Stroke Does the patient have a stroke diagnosis?: No VTE Prior VTE?: No VTE Risk Level:: Medical - moderate - high VTE Device Contraindication: Treatment Not Indicated VTE Drug Contraindication: N/A - Med Ordered
[2024-05-21 16:59] LABS: Anion Gap 20 (12-20); Blood Urea Nitrogen 81 mg/dL (9-16); Calcium 7.4 mg/dL (8.4-10.2); Carbon Dioxide 18 mmol/L (22-29); Chloride 97 mmol/L (96-108); Creatinine Clr Calc Pharmacy 8.6; Estimated Glomerular Filt Rate 5; Glucose Random 116 mg/dL (60-115); Potassium 4.4 mmol/L (3.3-5.1); Sodium 131 mmol/L (135-145)
[2024-05-21] MEDS: Lactulose 20 GM/30 ML SOLUTION PO (17:43)
--- NOTE | 2024-05-21 18:25 | PC.NURSE ---
IV fluids on hold at this time per Dr. David Guardado.
[2024-05-21] MEDS: ondansetron HCL 4 MG/2 ML VIAL IVPUSH (19:21)
[2024-05-21] MEDS: 0.9 % Sodium Chloride Flush 3 ML SYRINGE IVFLUSH (19:22)
[2024-05-21 19:44] LABS: Glucose, Whole Blood 115 mg/dL (60-115)
[2024-05-21] MEDS: Tamsulosin HCL 0.4 MG CAPSULE 0.8 MG PO (20:50)
[2024-05-22 03:28] VITALS: BP 154/80; PULSE 89; RESP 18; TEMP 37; O2SAT 95
[2024-05-22] MEDS: Acetaminophen 325 MG TABLET 975 MG PO ×4 (03:34→20:59)
[2024-05-22] MEDS: HYDROmorphone HCl 0.5 MG/0.5 ML SYRINGE IVPUSH ×2 (03:38→09:36)
[2024-05-22] MEDS: Omeprazole 40 MG CAPSULE.DR PO (05:54)
[2024-05-22 07:23] VITALS: BP 142/80; PULSE 85; RESP 20; TEMP 36.4; O2SAT 96
[2024-05-22 07:49] LABS: Glucose, Whole Blood 127 mg/dL (60-115)
[2024-05-22 07:52] LABS: Anion Gap 23 (12-20); Blood Urea Nitrogen 92 mg/dL (9-16); Calcium 7.5 mg/dL (8.4-10.2); Carbon Dioxide 19 mmol/L (22-29); Chloride 93 mmol/L (96-108); Creatinine Clr Calc Pharmacy 7.6; Estimated Glomerular Filt Rate 4; Glucose Random 95 mg/dL (60-115); Potassium 3.8 mmol/L (3.3-5.1); Sodium 131 mmol/L (135-145)
[2024-05-22 09:30] LABS: Appearance Urine Turbid; Color Urine RED; Glucose Urine UA 250 mg/dL (Negative); Leukocyte Esterase Urine Moderate (2+) (Negative); Nitrite Urine Positive (Negative); Specific Gravity - Urine 1.025 (1.005-1.025); UMIC TRIGGER UACC YES; Urine Blood Large (3+) (Negative); Urine Ketones 40 mg/dL (Negative); Urine Protein 300 (3+) mg/dL (Neg-Trace)
[2024-05-22] MEDS: Lidocaine 4 % Cream KIT 1 APPL TOPICAL (09:35)
[2024-05-22] MEDS: cefTRIAXone sodium 1 GM VIAL IVPUSH (09:35)
[2024-05-22] MEDS: Multivitamin TABLET 1 TAB PO (09:35)
[2024-05-22] MEDS: Aspirin 81 MG TAB.CHEW PO (09:36)
[2024-05-22 09:45] LABS: Bacteria Urine 4+ (None Seen); Hyaline Casts Urine 0-2 /LPF (0-2); RBC Urine >20 /HPF (0-2); Squamous Epithelial Cell Urine 0-2 /HPF (0-2); UACC Culture Trigger NO
[2024-05-22 09:57] LABS: Creatinine Urine 11.28 mg/dL
[2024-05-22 10:13] LABS: Osmolality Urine 327 mosm/kg (373-1093)
[2024-05-22 10:32] LABS: Total Protein Urine Random > 2000 mg/dL (<12)
--- NOTE | 2024-05-22 11:14 | P.PNIM_ITS ---
Subjective Subjective Date of Service: 05/22/24 Interval History: ramonita Review of Systems feels nauseated . has some ext swelling no urine output. Physical Exam 2 Vital Signs: Vital Signs: Last Vital Signs Temp 97.6 F 05/22/24 07:23 Pulse 85 05/22/24 07:23 Resp 20 05/22/24 07:23 BP 142/80 H 05/22/24 07:23 Pulse Ox 96 05/22/24 07:23 O2 Del Method Room Air 05/22/24 07:23 BMI result Body Mass Index 28.9 Appearance: Alert.? Oriented X3.? cvs: [id number], [id number] . res: clear to auscultation ,no rhonchii or wheezing abd: no rebound or guarding ,nt, bs present. has some left flank pain ext pulses present , no cyanosis . neuro: axo3 , nonfocal. Objective Data Active Medications Acetaminophen (Acetaminophen 325 Mg Tablet) 975 mg PO Q6H [facility] Last Admin: 05/22/24 09:35 Dose: 975 mg Documented By: BRITTNEY Al Hydroxide/Mg Hydroxide (Magnesium Hydrox/Alum Hydrox 30 Ml Oral.Susp) 30 ml PO Q4H PRN PRN Reason: Heartburn Aspirin (Aspirin 81 Mg Tab.Chew) 81 mg PO DAILY [facility] Last Admin: 05/22/24 09:36 Dose: 81 mg Documented By: BRITTNEY Atorvastatin Calcium (Atorvastatin Calcium 80 Mg Tablet) 80 mg PO DAILY [facility] Last Admin: 05/21/24 10:12 Dose: Not Given Documented By: BRITTNEY Non-Admin Reason: Physician Held Med Calcium Carbonate (Calcium Carbonate 750 Mg Tab.Chew) 750 mg PO Q4H PRN PRN Reason: Heartburn Ceftriaxone Sodium (Ceftriaxone Sodium 1 Gm Vial) 1 gm IVPUSH Q24H [facility] Last Admin: 05/22/24 09:35 Dose: 1 gm Documented By: BRITTNEY Glucose (Glucose Gel 15 Gm Gel..Gram.) 15 gm PO Q15M PRN; Protocol PRN Reason: per Hypoglycemia Standing Ord. Heparin Sodium (Porcine) (Heparin Sodium,Porcine 5,000 Unit/Ml Vial) 5,000 unit SUBCUT Q8H [facility] Last Admin: 05/22/24 08:42 Dose: Not Given Documented By: BRITTNEY Non-Admin Reason: Physician Held Med Hydromorphone HCl (Hydromorphone Hcl 0.5 Mg/0.5 Ml Syringe) 0.5 mg IVPUSH Q4H PRN; Protocol PRN Reason: Pain, Severe (Pain Scale 7-10) Last Admin: 05/22/24 09:36 Dose: 0.5 mg Documented By: BRITTNEY Dextrose (D10) 250 mls @ 750 mls/hr IV Q15M PRN; Protocol PRN Reason: per Hypoglycemia Standing Ord. Metronidazole (Flagyl) 500 mg in 100 mls @ 100 mls/hr IV Q12H [facility] Last Infusion: 05/22/24 00:35 Dose: Infused Documented By: OLGA Insulin Human Lispro (Insulin Lispro 100 Unit/Ml 3 Ml Vial) 0 unit SUBCUT QIDACHS [facility]; Protocol Last Admin: 05/22/24 08:34 Dose: Not Given Documented By: BRITTNEY Non-Admin Reason: No Insulin Coverage Lidocaine HCl (Lidocaine 4 % Cream Kit) 1 appl TOPICAL DAILY [facility]; Protocol Last Admin: 05/22/24 09:35 Dose: 1 appl Documented By: BRITTNEY Magnesium Hydroxide (Milk Of Magnesia 30 Ml Oral.Susp) 30 ml PO DAILY PRN PRN Reason: Constipation Melatonin (Melatonin 3 Mg Tablet) 6 mg PO BEDTIME PRN PRN Reason: Insomnia Multivitamins/Vitamin C (Multivitamin Tablet) 1 tab PO DAILY [facility] Last Admin: 05/22/24 09:35 Dose: 1 tab Documented By: BRITTNEY Non-Formulary Medication (Umeclidinium-Vilanterol [Anoro Ellipta]) 1 inhalation INHALE RDAILY [facility] Last Admin: 05/22/24 07:45 Dose: Not Given Documented By: SURAJ Non-Admin Reason: Patient Refused Omeprazole (Omeprazole 40 Mg Prerna.) 40 mg PO DAILY@0630 [facility] Last Admin: 05/22/24 05:54 Dose: 40 mg Documented By: OLGA Ondansetron HCl (Ondansetron Hcl 4 Mg/2 Ml Vial) 4 mg IVPUSH Q8H PRN PRN Reason: Nausea and Vomiting Last Admin: 05/21/24 19:21 Dose: 4 mg Documented By: OLGA Sodium Chloride (0.9 % Sodium Chloride Flush 3 Ml Syringe) 3 ml IVFLUSH QSHIFT [facility] Last Admin: 05/22/24 09:35 Dose: Not Given Documented By: BRITTNEY Non-Admin Reason: Previously Administered Tamsulosin HCl (Tamsulosin Hcl 0.4 Mg Capsule) 0.8 mg PO BEDTIME [facility] Last Admin: 05/21/24 20:50 Dose: 0.8 mg Documented By: OLGA Labs 05/19/24 09:46 05/22/24 06:19 Labs: Laboratory Results - last 24 hr 05/21/24 05/21/24 05/21/24 07:50 11:17 16:04 Hold Purple Top Anion Gap 20 Estim Creat Clear Calc 8.6 Estimated GFR 5 POC Glucose 126 H Random Glucose 116 H Calcium 7.4 L Total Creatine Kinase 245 H Urine Color Urine Appearance Urine pH Ur Specific [place] Urine Protein Urine Glucose (UA) Urine Ketones Urine Blood Urine Nitrite Ur Leukocyte Esterase Urine RBC Urine WBC Ur Squamous Epith Cells Urine Bacteria Hyaline Casts Urine Osmolality U Random Total Protein Ur Random Sodium Urine Creatinine 05/21/24 05/21/24 05/22/24 16:08 19:26 06:19 Hold Purple Top SEE NOTE Anion Gap 23 H Estim Creat Clear Calc 7.6 Estimated GFR 4 POC Glucose 117 H 115 Random Glucose 95 Calcium 7.5 L Total Creatine Kinase Urine Color Urine Appearance Urine pH Ur Specific [place] Urine Protein Urine Glucose (UA) Urine Ketones Urine Blood Urine Nitrite Ur Leukocyte Esterase Urine RBC Urine WBC Ur Squamous Epith Cells Urine Bacteria Hyaline Casts Urine Osmolality U Random Total Protein Ur Random Sodium Urine Creatinine 05/22/24 05/22/24 07:27 09:20 Hold Purple Top Anion Gap Estim Creat Clear Calc Estimated GFR POC Glucose 127 H Random Glucose Calcium Total Creatine Kinase Urine Color RED Urine Appearance Turbid Urine pH 8.0 Ur Specific [place] 1.025 Urine Protein 300 (3+) H Urine Glucose (UA) 250 H Urine Ketones 40 Urine Blood Large (3+) H Urine Nitrite Positive H Ur Leukocyte Esterase Moderate (2+) H Urine RBC >20 H Urine WBC 11-20 Ur Squamous Epith Cells 0-2 Urine Bacteria 4+ Hyaline Casts 0-2 Urine Osmolality 327 L U Random Total Protein > 2000 H Ur Random Sodium 122.0 Urine Creatinine 11.28 Microbiology Microbiology Results: Microbiology 05/19/24 17:44 Blood Culture - Preliminary Blood - Venous No growth after 48 hours. 05/19/24 17:23 Blood Culture - Preliminary Blood - Venous No growth after 48 hours. Assessment and Plan (1) Abdominal pain: Status: Acute (2) Acute proctitis: Status: Acute (3) RAMONITA (acute kidney injury): Status: Acute Plan 59-year-old male with diabetes, hypertension, hyperlipidemia, presented with some abdominal discomfort nausea vomiting diarrhea, cough with pleuritic chest pain and is found to have acute Kidney Injury, proctitis and bronchitis RAMONITA--multifactorial ,worsening ct abd:There is moderate right renal atrophy in comparison with the left. No calculi or hydronephrosis. not producing much urine cpk 245 hepatitis serologies pending iris ,c3,c4 pending, T. Pallidum -nonreactive. UA-has protein ,glucouria, large3+ blood, rbc >20, wbc 11-20,Leukocyte estrase +,bacteruria 4+. urine protein >2000,urine cr is 11.28 urine cultures added. plan: renal function worsening, has anion gap ,ph normal . nephrology eval-rec hd catheter, stop ivf ,trial of wilkerson catheter given -did not produce much urine ,will dc wilkerson. urine labs need to send once produces urine. Proctitis--started on ceftriaxone in ED, continue, add flagyl blood cultures neg@48 hrs HSV 1 IgG ab: 35.5 HSV II IgG 6.99 Ctng urine -cannot be done due to no urine output -d/w lab-they will add ctng reflab. some pain in flank area? reffered vs MS Added lidocaine patch. constipation: passing gases did not have bm for 3-4 days continue bowel regimen Bronchitis--breathing treatment and ceftriaone /flagyl as above. Diabetes--hold metfromin and give sliding scvale insulin, diabetic diet Hypertension--resume home meds Hyperlipidemia--statin dvt prophylaxis--s/c heparin ongoing need for stay- worsening ramonita-need HD,nephrology following Quality Stroke Does the patient have a stroke diagnosis?: No VTE Prior VTE?: No VTE Risk Level:: Medical - moderate - high VTE Device Contraindication: Treatment Not Indicated VTE Drug Contraindication: N/A - Med Ordered
[2024-05-22 11:25] LABS: Glucose, Whole Blood 127 mg/dL (60-115)
--- NOTE | 2024-05-22 11:43 | PM.PROC ---
Brief Operative Note Date of procedure: 05/21/24 Pre-op diagnosis: RAMONITA Post-op diagnosis: same Procedure: Javier catheter placement Right IJ 20 cm trialysis catheter placed using US and FL. Tip at cavoatrial junction. Ok for use. Anesthesia: local
[2024-05-22 12:28] LABS: Anti Glomerular Basement Memb <1.0 AI; Myeloperoxidase Antibody <1.0 AI; Proteinase 3 PR3 Antibodies <1.0 AI
[2024-05-22 12:51] VITALS: BP 142/74; PULSE 79; RESP 18; TEMP 36.8; O2SAT 96
[2024-05-22] MEDS: metroNIDAZOLE/NS 500 MG/100 ML PIGGYBACK 100 MG IV (13:07)
--- NOTE | 2024-05-22 14:12 | MHC.CM.PN ---
PER ROUNDS PT IS NOT MEDICALLY READY FOR DC PLAN REMAINS HOME
--- NOTE | 2024-05-22 14:47 | P.CDIM_ITS ---
PROVIDER RESPONSE TEXT: To clarify, the appropriate diagnosis supported by the clinical indicators: Acute Bronchitis: likely viral QUERY TEXT: PHYSICIAN'S DOCUMENTATION REQUEST Date of Query: 05/22/2024 08:37 AM EST Patient Name: Jere Vazquez Admit Date: 05/19/2024 Dear Eddy Guardado MD, A review of the medical record indicates additional documentation may be needed. Please review below and update the documentation accordingly. Clinical Indicators: Cough, smoker, wheezing, chest pain. PMH: Asthma Progress notes 05/21: Bronchitis --breathing treatments. Clarify which of the following accurately represents the acuity and specifics of the noted Bronchitis : Possible options might include: Acute Bronchitis viral, chemical, with bronchiectasis, etc. Chronic bronchitis obstructive, asthmatic, simple, chemical etc. Bronchitis, unspecified Other (explain) Clinically unable to determine (explain) Thank you, Leesa Vazquez, CCS, CDIS Use of terms such as suspected, likely, concern for, or probable (associated with a specific diagnosi s that is being evaluated, monitored, or treated as if it exists) are acceptable and can be coded in the inpatient se tting, when documented at the time of discharge. Please use your independent medical judgment in providing your response. THIS QUERY IS PART OF THE PERMANENT MEDICAL RECORD
[2024-05-22 15:25] VITALS: BP 158/72; PULSE 89; RESP 20; TEMP 36.7; O2SAT 96
[2024-05-22] MEDS: 0.9 % Sodium Chloride Flush 3 ML SYRINGE IVFLUSH ×2 (15:45→21:05)
[2024-05-22 16:13] LABS: Glucose, Whole Blood 153 mg/dL (60-115)
--- NOTE | 2024-05-22 16:54 | PC.NURSE ---
Patient due to void by 1530 s/p wilkerson removal- bladder scanned at approximately 1545 for 12mL. Patient continues with difficulty voiding. Due for next bladder scan at 2130.
--- NOTE | 2024-05-22 18:13 | P.PNNP_ITS ---
Subjective Subjective Date of Service: 05/22/24 Interval history: ramonita Remains anuric Physical Exam 2 Vital Signs: Vital Signs: Last Vital Signs Temp 98.1 F 05/22/24 15:25 Pulse 89 05/22/24 15:25 Resp 20 05/22/24 15:25 BP 158/72 H 05/22/24 15:25 Pulse Ox 96 05/22/24 15:25 O2 Del Method Room Air 05/22/24 15:25 BMI result Body Mass Index 28.9 Awake. Comfortable. Neck is supple. Mucosa moist. Lungs bilateral scattered rhonchi. Heart S1-S2 heard no gallop. Abdomen soft. Extremities no edema. No involuntary movements. No myoclonus. Objective Data Labs 05/19/24 09:46 05/22/24 06:19 Labs: Laboratory Results - last 24 hr 05/21/24 05/21/24 05/22/24 07:14 19:26 06:19 Hold Purple Top SEE NOTE Sodium 131 L Potassium 3.8 Chloride 93 L Carbon Dioxide 19 L Anion Gap 23 H BUN 92 H Creatinine 11.76 H* Estim Creat Clear Calc 7.6 Estimated GFR 4 POC Glucose 115 Random Glucose 95 Calcium 7.5 L Urine Color Urine Appearance Urine pH Ur Specific [place] Urine Protein Urine Glucose (UA) Urine Ketones Urine Blood Urine Nitrite Ur Leukocyte Esterase Urine RBC Urine WBC Ur Squamous Epith Cells Urine Bacteria Hyaline Casts Urine Osmolality U Random Total Protein Ur Random Sodium Urine Creatinine Proteinase 3 (PR3) Ab <1.0 Myeloperoxidase Ab <1.0 Glomerular Base Memb Ab <1.0 05/22/24 05/22/24 05/22/24 07:27 09:20 11:20 Hold Purple Top Sodium Potassium Chloride Carbon Dioxide Anion Gap BUN Creatinine Estim Creat Clear Calc Estimated GFR POC Glucose 127 H 127 H Random Glucose Calcium Urine Color RED Urine Appearance Turbid Urine pH 8.0 Ur Specific [place] 1.025 Urine Protein 300 (3+) H Urine Glucose (UA) 250 H Urine Ketones 40 Urine Blood Large (3+) H Urine Nitrite Positive H Ur Leukocyte Esterase Moderate (2+) H Urine RBC >20 H Urine WBC 11-20 Ur Squamous Epith Cells 0-2 Urine Bacteria 4+ Hyaline Casts 0-2 Urine Osmolality 327 L U Random Total Protein > 2000 H Ur Random Sodium 122.0 Urine Creatinine 11.28 Proteinase 3 (PR3) Ab Myeloperoxidase Ab Glomerular Base Memb Ab 05/22/24 16:03 Hold Purple Top Sodium Potassium Chloride Carbon Dioxide Anion Gap BUN Creatinine Estim Creat Clear Calc Estimated GFR POC Glucose 153 H Random Glucose Calcium Urine Color Urine Appearance Urine pH Ur Specific [place] Urine Protein Urine Glucose (UA) Urine Ketones Urine Blood Urine Nitrite Ur Leukocyte Esterase Urine RBC Urine WBC Ur Squamous Epith Cells Urine Bacteria Hyaline Casts Urine Osmolality U Random Total Protein Ur Random Sodium Urine Creatinine Proteinase 3 (PR3) Ab Myeloperoxidase Ab Glomerular Base Memb Ab Microbiology Microbiology Results: Microbiology 05/19/24 17:44 Blood - Venous Blood Culture - Preliminary No growth after 48 hours. 05/19/24 17:23 Blood - Venous Blood Culture - Preliminary No growth after 48 hours. Procedures Date of Service Date of Service: 05/22/24 Assessment & Plan Assessment and plan (1) RAMONITA (acute kidney injury): Status: Acute Plan RAMONITA Different diagnosis includes ATN/acute glomerular nephritis. Currently anuric. No overt signs or symptoms of uremia. Plan HD today Workup for a GN under way. Significnat proteinuria May need a biopsy HD again tomorrow Time Spent With Patient Time: Total time managing care of this patient today ____ minutes. Progress Note: Quality Stroke Does the patient have a stroke diagnosis?: No
[2024-05-22 19:25] VITALS: BP 158/78; PULSE 92; RESP 20; TEMP 36.9; O2SAT 96
[2024-05-22 19:41] LABS: Glucose, Whole Blood 159 mg/dL (60-115)
[2024-05-22] MEDS: Tamsulosin HCL 0.4 MG CAPSULE 0.8 MG PO (20:59)
--- NOTE | 2024-05-22 22:44 | W.PM.IDCN ---
History of Present Illness Data of Consult Service Date: 05/22/24 Requesting physician: Eddy Guardado Primary Care Provider: Dmitri Arzola MD HPI Reason for consult: possible infection He presents with one to two days of diarrhea,vomiting and fatigue. There is no specific abdominal or rectal pain. He has some mild left flank pain only; No one else is ill. Review of Systems Review of Systems: Yes all other systems are reviewed and are negative [facility] Past Medical History Medical History HLD (hyperlipidemia) Non-insulin dependent type 2 diabetes mellitus Asthma Hypertension Family History Family history: reviewed and not pertinent Social History Social History Household Members: Family Housing: Apartment Do you presently have visiting nurse or other home services: No Alcohol intake: former Patient Tobacco Use Status: Current someday Tobacco user Tobacco use type: Cigarette Cigarette Packs Per Day: 1 Cigarettes Per Day: 9 e-Cigarette/Vaping Use: Never Used Second Hand Smoke Exposure: No service: No Current occupational status: employed Meds Allergies Allergy/AdvReac Type Severity Reaction Status Date / Time No Known Allergies Allergy Verified 05/19/24 09:26 Active Medications: Current Medications Acetaminophen (Acetaminophen 325 Mg Tablet) 975 mg PO Q6H [facility] Last Admin: 05/22/24 20:59 Dose: 975 mg Al Hydroxide/Mg Hydroxide (Magnesium Hydrox/Alum Hydrox 30 Ml Oral.Susp) 30 ml PO Q4H PRN PRN Reason: Heartburn Aspirin (Aspirin 81 Mg Tab.Chew) 81 mg PO DAILY [facility] Last Admin: 05/22/24 09:36 Dose: 81 mg Atorvastatin Calcium (Atorvastatin Calcium 80 Mg Tablet) 80 mg PO DAILY [facility] Last Admin: 05/21/24 10:12 Dose: Not Given Calcium Carbonate (Calcium Carbonate 750 Mg Tab.Chew) 750 mg PO Q4H PRN PRN Reason: Heartburn Glucose (Glucose Gel 15 Gm Gel..Gram.) 15 gm PO Q15M PRN; Protocol PRN Reason: per Hypoglycemia Standing Ord. Heparin Sodium (Porcine) (Heparin Sodium,Porcine 5,000 Unit/Ml Vial) 5,000 unit SUBCUT Q8H [facility] Last Admin: 05/22/24 16:15 Dose: Not Given Hydromorphone HCl (Hydromorphone Hcl 0.5 Mg/0.5 Ml Syringe) 0.5 mg IVPUSH Q4H PRN; Protocol PRN Reason: Pain, Severe (Pain Scale 7-10) Last Admin: 05/22/24 09:36 Dose: 0.5 mg Dextrose (D10) 250 mls @ 750 mls/hr IV Q15M PRN; Protocol PRN Reason: per Hypoglycemia Standing Ord. Insulin Human Lispro (Insulin Lispro 100 Unit/Ml 3 Ml Vial) 0 unit SUBCUT QIDACHS [facility]; Protocol Last Admin: 05/22/24 21:05 Dose: Not Given Lidocaine HCl (Lidocaine 4 % Cream Kit) 1 appl TOPICAL DAILY [facility]; Protocol Last Admin: 05/22/24 09:35 Dose: 1 appl Magnesium Hydroxide (Milk Of Magnesia 30 Ml Oral.Susp) 30 ml PO DAILY PRN PRN Reason: Constipation Melatonin (Melatonin 3 Mg Tablet) 6 mg PO BEDTIME PRN PRN Reason: Insomnia Multivitamins/Vitamin C (Multivitamin Tablet) 1 tab PO DAILY [facility] Last Admin: 05/22/24 09:35 Dose: 1 tab Non-Formulary Medication (Umeclidinium-Vilanterol [Anoro Ellipta]) 1 inhalation INHALE RDAILY [facility] Last Admin: 05/22/24 07:45 Dose: Not Given Omeprazole (Omeprazole 40 Mg Capsule.Dr) 40 mg PO DAILY@629 [facility] Last Admin: 05/22/24 05:54 Dose: 40 mg Ondansetron HCl (Ondansetron Hcl 4 Mg/2 Ml Vial) 4 mg IVPUSH Q8H PRN PRN Reason: Nausea and Vomiting Last Admin: 05/21/24 19:21 Dose: 4 mg Sodium Chloride (0.9 % Sodium Chloride Flush 3 Ml Syringe) [address] [facility] Last Admin: 05/22/24 21:05 Dose: 3 ml Tamsulosin HCl (Tamsulosin Hcl 0.4 Mg Capsule) 0.8 mg PO BEDTIME [facility] Last Admin: 05/22/24 20:59 Dose: 0.8 mg Home Medications ?Medication ?Instructions ?Recorded ?Confirmed ?Last Taken ?Type multivitamin 1 tab PO DAILY 09/19/22 05/19/24 05/18/24 History omeprazole 20 mg capsule,delayed 40 mg PO DAILY@0630 09/19/22 05/19/24 05/18/24 History release hydrochlorothiazide 25 mg tablet 25 mg PO DAILY 05/19/24 05/19/24 05/18/24 History lisinopril 5 mg tablet 10 mg PO DAILY 05/19/24 05/19/24 05/18/24 History metformin 500 mg tablet 500 mg PO BID 05/19/24 05/19/24 05/18/24 History umeclidinium 62.5 mcg-vilanterol 1 inh inhalation DAILY 05/19/24 05/19/24 05/18/24 History 25 mcg/actuation powdr for inhalation (Anoro Ellipta) Physical Exam Vital Signs: Vital Signs: Last Vital Signs Temp 98.5 F 05/22/24 19:25 Pulse 92 05/22/24 19:25 Resp 20 05/22/24 19:25 BP 158/78 H 05/22/24 19:25 Pulse Ox 96 05/22/24 19:25 O2 Del Method Room Air 05/22/24 19:25 BMI result Body Mass Index 28.9 Const: General: cooperative HEENT: Head: Yes normal to inspection Face and sinus: Yes normal facial exam Mouth: Normal oral and palatal mucosa present Teeth and gingiva: dentition normal Eyes: General: appearance normal, both eyes and all related structures Pupils: Equal, round and reactive pupils present Resp: Effort & Inspection: normal respiratory effort Cardio: Rate: regular rate Rhythm: regular rhythm GI: Other: mild left flank discomfort Palpation (GI): Soft to palpation and nontender : General: Yes no CVA tenderness Back/Spine/Pelvis: Back: no CVA tenderness Skin: General skin exam: no rashes or lesions noted Neuro: General: moves all extremities Cranial nerves: Yes Equal, round and reactive pupils present Extrem: General: Yes normal to inspection Psych: Appearance: grossly normal Results Labs 05/19/24 09:46 05/22/24 06:19 Labs: BMP 05/22/24 06:19 Sodium 131 L Potassium 3.8 Chloride 93 L Carbon Dioxide 19 L BUN 92 H Creatinine 11.76 H* Calcium 7.5 L Urine 05/22/24 Range/Units 09:20 Urine Color RED Urine Appearance Turbid Urine pH 8.0 (5.0-9.0) Ur Specific [place] 1.025 (1.005-1.025) Urine Protein 300 (3+) H (Neg-Trace) mg/dL Urine Glucose (UA) 250 H (Negative) mg/dL Microbiology Microbiology Results: Microbiology 05/19/24 17:44 Blood - Venous Blood Culture - Preliminary No growth after 48 hours. 05/19/24 17:23 Blood - Venous Blood Culture - Preliminary No growth after 48 hours. Assessment and Plan (1) RAMONITA (acute kidney injury): Status: Acute Plan He has had diarrhea,now resolving? norovirus or other viral etiology verus collagen vascular disease. He has no clinical signs of proctitis (no rectal pain,fever or leukocytosis just a possibility on CT scan that doesnt seem to be clinically relevant so would stop antibiotics. Ceftriaxone and flagyl not needed for viral diarrheal syndrome or for bronchitis which if he has is likely viral also. Check norovirus if diarrhea recurs and stool panel. If unremarkable ,GI follow
[2024-05-23] MEDS: Acetaminophen 325 MG TABLET 975 MG PO ×3 (03:35→21:54)
[2024-05-23 04:00] VITALS: BP 164/76; PULSE 97; RESP 16; TEMP 36.9; O2SAT 96
[2024-05-23 04:18] LABS: CT PCR Invalid (Not Detect.); NG PCR Invalid (Not Detect.)
[2024-05-23] MEDS: Omeprazole 40 MG CAPSULE.DR PO (05:53)
--- NOTE | 2024-05-23 06:06 | PC.NURSE ---
0030- Patient able to void 20ml only of blood tinged urine, PVR amount 6ml, no action needed, denies bladder pain or pressure. 0600- voided 15ml red tinged urine, PVR 10ml at this time, no action needed, and again denies bladder pain or pressure. Dialysis planned again for today per MD report.
[2024-05-23 07:03] LABS: Anion Gap 20 (12-20); Blood Urea Nitrogen 74 mg/dL (9-16); Calcium 7.6 mg/dL (8.4-10.2); Carbon Dioxide 18 mmol/L (22-29); Chloride 99 mmol/L (96-108); Creatinine Clr Calc Pharmacy 7.7; Estimated Glomerular Filt Rate 4; Glucose Random 111 mg/dL (60-115); Potassium 3.8 mmol/L (3.3-5.1); Sodium 133 mmol/L (135-145)
[2024-05-23 07:37] VITALS: BP 183/76; PULSE 88; RESP 18; TEMP 36.6; O2SAT 96
[2024-05-23 07:53] LABS: Glucose, Whole Blood 111 mg/dL (60-115)
[2024-05-23] MEDS: ondansetron HCL 4 MG/2 ML VIAL IVPUSH (07:53)
[2024-05-23 08:31] LABS: HBS Num1 279.57 mIU/mL (0-7.99); HBc Num1 0.03 S/CO (0.00-0.79); HBsAGNum1 0.34 S/CO (0.00-0.99); Hepatitis B Core Antibody Nonreactive (Nonreactive); Hepatitis B Surface Antigen Negative (Negative); ~Hepatitis B Surface Antibody REACTIVE (Nonreactive)
[2024-05-23] MEDS: 0.9 % Sodium Chloride Flush 3 ML SYRINGE IVFLUSH ×3 (09:43→22:07)
--- NOTE | 2024-05-23 10:27 | HO.PM.IMPN ---
Subjective Subjective Date of Service: 05/23/24 Interval History: Seen and evaluated this morning feels little better, still reporting bloating and nausea on occasions No siginificant urine output Review of Systems Review of Systems: Yes all other systems are reviewed and are negative Physical Exam Vital Signs: Vital Signs: Last Vital Signs Temp 97.8 F 05/23/24 07:37 Pulse 88 05/23/24 07:37 Resp 18 05/23/24 07:37 BP 183/76 H 05/23/24 07:37 Pulse Ox 96 05/23/24 07:37 O2 Del Method Room Air 05/23/24 07:37 BMI result Body Mass Index 28.9 Const: Other: Constitutional : interactive, not in distress Cardiovascular : no JVP, no lower extremity edema, Temp dialysis cath in left IJ Respiratory : bilateral chest movement, not in resp distress Gastrointestinal: soft, lax, Non tender Skin : Warm, Dry Neurological : Alert & oriented , No focal deficit Objective Data Active Medications Acetaminophen (Acetaminophen 325 Mg Tablet) 975 mg PO Q6H [facility] Last Admin: 05/23/24 03:35 Dose: 975 mg Documented By: TRISTAN Al Hydroxide/Mg Hydroxide (Magnesium Hydrox/Alum Hydrox 30 Ml Oral.Susp) 30 ml PO Q4H PRN PRN Reason: Heartburn Aspirin (Aspirin 81 Mg Tab.Chew) 81 mg PO DAILY [facility] Last Admin: 05/22/24 09:36 Dose: 81 mg Documented By: BRITTNEY Atorvastatin Calcium (Atorvastatin Calcium 80 Mg Tablet) 80 mg PO DAILY [facility] Last Admin: 05/21/24 10:12 Dose: Not Given Documented By: BRITTNEY Non-Admin Reason: Physician Held Med Calcium Carbonate (Calcium Carbonate 750 Mg Tab.Chew) 750 mg PO Q4H PRN PRN Reason: Heartburn Glucose (Glucose Gel 15 Gm Gel..Gram.) 15 gm PO Q15M PRN; Protocol PRN Reason: per Hypoglycemia Standing Ord. Heparin Sodium (Porcine) (Heparin Sodium,Porcine 5,000 Unit/Ml Vial) 5,000 unit SUBCUT Q8H [facility] Last Admin: 05/23/24 00:46 Dose: Not Given Documented By: TRISTAN Non-Admin Reason: held per md binta aware Hydromorphone HCl (Hydromorphone Hcl 0.5 Mg/0.5 Ml Syringe) 0.5 mg IVPUSH Q4H PRN; Protocol PRN Reason: Pain, Severe (Pain Scale 7-10) Last Admin: 05/22/24 09:36 Dose: 0.5 mg Documented By: BRITTNEY Dextrose (D10) 250 mls @ 750 mls/hr IV Q15M PRN; Protocol PRN Reason: per Hypoglycemia Standing Ord. Insulin Human Lispro (Insulin Lispro 100 Unit/Ml 3 Ml Vial) 0 unit SUBCUT QIDACHS [facility]; Protocol Last Admin: 05/23/24 08:48 Dose: Not Given Documented By: YOLIE Non-Admin Reason: No Insulin Coverage Lidocaine (Lidocaine 4 % Patch Adh..Patch) 1 patch TRANSDERMA DAILY [facility]; Protocol Lidocaine HCl (Lidocaine 4 % Cream Kit) 1 appl TOPICAL DAILY [facility]; Protocol Last Admin: 05/22/24 09:35 Dose: 1 appl Documented By: BRITTNEY Magnesium Hydroxide (Milk Of Magnesia 30 Ml Oral.Susp) 30 ml PO DAILY PRN PRN Reason: Constipation Melatonin (Melatonin 3 Mg Tablet) 6 mg PO BEDTIME PRN PRN Reason: Insomnia Multivitamins/Vitamin C (Multivitamin Tablet) 1 tab PO DAILY [facility] Last Admin: 05/22/24 09:35 Dose: 1 tab Documented By: BRITTNEY Non-Formulary Medication (Umeclidinium-Vilanterol [Anoro Ellipta]) 1 inhalation INHALE RDAILY [facility] Last Admin: 05/22/24 07:45 Dose: Not Given Documented By: SURAJ Non-Admin Reason: Patient Refused Omeprazole (Omeprazole 40 Mg Prerna.) 40 mg PO DAILY@0630 [facility] Last Admin: 05/23/24 05:53 Dose: 40 mg Documented By: TRISTAN Ondansetron HCl (Ondansetron Hcl 4 Mg/2 Ml Vial) 4 mg IVPUSH Q8H PRN PRN Reason: Nausea and Vomiting Last Admin: 05/23/24 07:53 Dose: 4 mg Documented By: YOLIE Sodium Chloride (0.9 % Sodium Chloride Flush 3 Ml Syringe) 3 ml IVFLUSH QSHIFT [facility] Last Admin: 05/23/24 09:43 Dose: 3 ml Documented By: YOLIE Tamsulosin HCl (Tamsulosin Hcl 0.4 Mg Capsule) 0.8 mg PO BEDTIME [facility] Last Admin: 05/22/24 20:59 Dose: 0.8 mg Documented By: TRISTAN Labs 05/19/24 09:46 05/23/24 05:49 Labs: Laboratory Results - last 24 hr 05/21/24 05/22/24 05/22/24 07:14 09:20 10:28 Hold Purple Top Anion Gap Estim Creat Clear Calc Estimated GFR POC Glucose Random Glucose Calcium U Random Total Protein > 2000 H Proteinase 3 (PR3) Ab <1.0 Myeloperoxidase Ab <1.0 Glomerular Base Memb Ab <1.0 Chlam trachomat DNA PCR Hep Bs Antigen Negative Hep Bs Antibody REACTIVE Hep B Core Total Ab Nonreactive N.gonorrhoeae DNA (PCR) 05/22/24 05/22/24 05/22/24 11:20 15:07 16:03 Hold Purple Top Anion Gap Estim Creat Clear Calc Estimated GFR POC Glucose 127 H 153 H Random Glucose Calcium U Random Total Protein Proteinase 3 (PR3) Ab Myeloperoxidase Ab Glomerular Base Memb Ab Chlam trachomat DNA PCR Invalid Hep Bs Antigen Hep Bs Antibody Hep B Core Total Ab N.gonorrhoeae DNA (PCR) Invalid 05/22/24 05/23/24 05/23/24 19:27 05:49 07:17 Hold Purple Top SEE NOTE Anion Gap 20 Estim Creat Clear Calc 7.7 Estimated GFR 4 POC Glucose 159 H 111 Random Glucose 111 Calcium 7.6 L U Random Total Protein Proteinase 3 (PR3) Ab Myeloperoxidase Ab Glomerular Base Memb Ab Chlam trachomat DNA PCR Hep Bs Antigen Hep Bs Antibody Hep B Core Total Ab N.gonorrhoeae DNA (PCR) Assessment and Plan (1) RAMONITA (acute kidney injury): Status: Acute (2) ESRD needing dialysis: Status: Acute Plan 59-year-old male with diabetes, hypertension, hyperlipidemia, presented with some abdominal discomfort nausea vomiting diarrhea, cough with pleuritic chest pain and is found to have acute Kidney Injury, proctitis and bronchitis RAMONITA No clear underlying cause, multifactorial in nature, pending Tolerated HD session, Cr at 11 CT abd:There is moderate right renal atrophy in comparison with the left. No calculi or hydronephrosis. hepatitis serologies negative LIANG ,c3,c4 pending, UA-has protein ,glucouria, large3+ blood, rbc >20, wbc 11-20,Leukocyte estrase +,bacteruria 4+. urine protein >2000,urine cr is 11.28 urine cultures added. nephrology following, continue Dialysis for now might need renal biopsy Constipation CT reported abnormal findings suggestive of proctatitis, no clinical finding to suggest it DC IV Abx symptomatic measures ID input appreciated Added lidocaine patch. continue bowel regimen Bronchitis breathing treatment Diabetes hold metfromin and give sliding scvale insulin, diabetic diet Hypertension resume home meds Hyperlipidemia statin dvt prophylaxis s/c heparin ongoing need for stay- worsening ramonita-need HD,nephrology following Quality Stroke Does the patient have a stroke diagnosis?: No VTE Prior VTE?: No VTE Risk Level:: Medical - moderate - high VTE Device Contraindication: Treatment Not Indicated VTE Drug Contraindication: N/A - Med Ordered
[2024-05-23 11:35] LABS: Glucose, Whole Blood 127 mg/dL (60-115)
[2024-05-23 13:21] VITALS: BP 178/80; PULSE 97; RESP 18; TEMP 36.8; O2SAT 98
[2024-05-23] MEDS: Multivitamin TABLET 1 TAB PO (13:26)
[2024-05-23] MEDS: Aspirin 81 MG TAB.CHEW PO (13:26)
[2024-05-23] MEDS: Lidocaine 4 % Patch ADH..PATCH 1 PATCH TRANSDERMA (13:28)
[2024-05-23] MEDS: amLODIPine Besylate 5 MG TABLET PO (14:55)
[2024-05-23 15:21] VITALS: BP 182/60; PULSE 103; RESP 15; TEMP 37.2; O2SAT 96
[2024-05-23 16:18] LABS: Glucose, Whole Blood 141 mg/dL (60-115)
--- NOTE | 2024-05-23 17:50 | PC.NURSE ---
Addendum entered by Virginia Guzman RN 05/23/24 18:26: Bladder scanned @1800 0cc. Original Note: Bladder scanned post dialysis for 20cc. No void. Voided @50cc dark, dieter urine @ 1730. Heparin held per MD. Encouraged pt use compressions stockings while in bed.
--- NOTE | 2024-05-23 18:22 | PC.NURSE ---
Hypertensive 170's-180's systolic. Dr. Yin notified. New order for amlodopine, given.
[2024-05-23 19:06] VITALS: BP 174/58; PULSE 99; RESP 15; TEMP 37.1; O2SAT 95
[2024-05-23 20:52] LABS: Glucose, Whole Blood 161 mg/dL (60-115)
[2024-05-23] MEDS: Tamsulosin HCL 0.4 MG CAPSULE 0.8 MG PO (21:54)
[2024-05-23] MEDS: Insulin Lispro 100 UNIT/ML 3 ML VIAL SUBCUT (21:54)
--- NOTE | 2024-05-24 01:07 | PC.NURSE ---
0045- No urine output at this time, bladder scan revealed 32ml, no action at this time. Patient denied bladder pain or pressure, noted to have dialysis again 05-23-24, will continue to monitor.
[2024-05-24] MEDS: Acetaminophen 325 MG TABLET 975 MG PO (03:34)
[2024-05-24 03:58] VITALS: BP 170/74; PULSE 90; RESP 18; TEMP 36.9; O2SAT 95
[2024-05-24] MEDS: Omeprazole 40 MG CAPSULE.DR PO (05:48)
[2024-05-24 06:51] LABS: Anion Gap 18 (12-20); Blood Urea Nitrogen 61 mg/dL (9-16); Calcium 7.8 mg/dL (8.4-10.2); Carbon Dioxide 20 mmol/L (22-29); Chloride 101 mmol/L (96-108); Creatinine Clr Calc Pharmacy 8.2; Estimated Glomerular Filt Rate 5; Glucose Random 101 mg/dL (60-115); Potassium 3.7 mmol/L (3.3-5.1); Sodium 135 mmol/L (135-145)
[2024-05-24 07:24] VITALS: BP 174/82; PULSE 82; RESP 18; TEMP 36.8; O2SAT 97
[2024-05-24 07:56] LABS: Glucose, Whole Blood 111 mg/dL (60-115)
[2024-05-24] MEDS: amLODIPine Besylate 5 MG TABLET PO (08:43)
[2024-05-24] MEDS: Multivitamin TABLET 1 TAB PO (08:43)
[2024-05-24] MEDS: Aspirin 81 MG TAB.CHEW PO (08:43)
[2024-05-24] MEDS: Lidocaine 4 % Patch ADH..PATCH 1 PATCH TRANSDERMA (08:44)
[2024-05-24] MEDS: 0.9 % Sodium Chloride Flush 3 ML SYRINGE IVFLUSH ×3 (08:44→20:43)
[2024-05-24] MEDS: Heparin Sodium,Porcine 5,000 UNIT/ML VIAL 5000 UNIT SUBCUT ×2 (10:08→17:08)
[2024-05-24 11:28] LABS: Glucose, Whole Blood 159 mg/dL (60-115)
[2024-05-24] MEDS: Insulin Lispro 100 UNIT/ML 3 ML VIAL SUBCUT (12:39)
--- NOTE | 2024-05-24 14:42 | HO.PM.IMPN ---
Subjective Subjective Date of Service: 05/24/24 Interval History: Seen and evaluated this morning feels little better, Cr mildly better after dialysis No significant urine output but making little more Review of Systems Review of Systems: Yes all other systems are reviewed and are negative Physical Exam Vital Signs: Vital Signs: Last Vital Signs Temp 98.3 F 05/24/24 07:24 Pulse 82 05/24/24 07:24 Resp 18 05/24/24 07:24 BP 174/82 H 05/24/24 07:24 Pulse Ox 97 05/24/24 07:24 O2 Del Method Room Air 05/24/24 07:24 BMI result Body Mass Index 28.9 Const: Other: Constitutional : interactive, not in distress Cardiovascular : no JVP, no lower extremity edema, Temp dialysis cath in left IJ Respiratory : bilateral chest movement, not in resp distress Gastrointestinal: soft, lax, Non tender Skin : Warm, Dry Neurological : Alert & oriented , No focal deficit Objective Data Active Medications Acetaminophen (Acetaminophen 325 Mg Tablet) 975 mg PO Q6H [facility] Last Admin: 05/24/24 14:38 Dose: Not Given Documented By: YOLIE Non-Admin Reason: Patient Refused Al Hydroxide/Mg Hydroxide (Magnesium Hydrox/Alum Hydrox 30 Ml Oral.Susp) 30 ml PO Q4H PRN PRN Reason: Heartburn Amlodipine Besylate (Amlodipine Besylate 5 Mg Tablet) 5 mg PO DAILY [facility]; Protocol Last Admin: 05/24/24 08:43 Dose: 5 mg Documented By: YOLIE Aspirin (Aspirin 81 Mg Tab.Chew) 81 mg PO DAILY [facility] Last Admin: 05/24/24 08:43 Dose: 81 mg Documented By: YOLIE Atorvastatin Calcium (Atorvastatin Calcium 80 Mg Tablet) 80 mg PO DAILY [facility] Last Admin: 05/21/24 10:12 Dose: Not Given Documented By: BRITTNEY Non-Admin Reason: Physician Held Med Calcium Carbonate (Calcium Carbonate 750 Mg Tab.Chew) 750 mg PO Q4H PRN PRN Reason: Heartburn Glucose (Glucose Gel 15 Gm Gel..Gram.) 15 gm PO Q15M PRN; Protocol PRN Reason: per Hypoglycemia Standing Ord. Heparin Sodium (Porcine) (Heparin Sodium,Porcine 5,000 Unit/Ml Vial) 5,000 unit SUBCUT Q8H [facility] Last Admin: 05/24/24 10:08 Dose: 5,000 unit Documented By: YOLIE Hydromorphone HCl (Hydromorphone Hcl 0.5 Mg/0.5 Ml Syringe) 0.5 mg IVPUSH Q4H PRN; Protocol PRN Reason: Pain, Severe (Pain Scale 7-10) Last Admin: 05/22/24 09:36 Dose: 0.5 mg Documented By: BRITTNEY Dextrose (D10) 250 mls @ 750 mls/hr IV Q15M PRN; Protocol PRN Reason: per Hypoglycemia Standing Ord. Insulin Human Lispro (Insulin Lispro 100 Unit/Ml 3 Ml Vial) 0 unit SUBCUT QIDACHS [facility]; Protocol Last Admin: 05/24/24 12:39 Dose: 2 unit Documented By: YOLIE Lidocaine (Lidocaine 4 % Patch Adh..Patch) 1 patch TRANSDERMA DAILY [facility]; Protocol Last Admin: 05/24/24 08:44 Dose: 1 patch Documented By: YOLIE Lidocaine HCl (Lidocaine 4 % Cream Kit) 1 appl TOPICAL DAILY [facility]; Protocol Last Admin: 05/24/24 08:44 Dose: Not Given Documented By: YOLIE Non-Admin Reason: Patient Refused Magnesium Hydroxide (Milk Of Magnesia 30 Ml Oral.Susp) 30 ml PO DAILY PRN PRN Reason: Constipation Melatonin (Melatonin 3 Mg Tablet) 6 mg PO BEDTIME PRN PRN Reason: Insomnia Multivitamins/Vitamin C (Multivitamin Tablet) 1 tab PO DAILY [facility] Last Admin: 05/24/24 08:43 Dose: 1 tab Documented By: YOLIE Non-Formulary Medication (Umeclidinium-Vilanterol [Anoro Ellipta]) 1 inhalation INHALE RDAILY [facility] Last Admin: 05/24/24 07:57 Dose: Not Given Documented By: DANELLE Non-Admin Reason: Patient Refused Omeprazole (Omeprazole 40 Mg Prerna.) 40 mg PO DAILY@0630 [facility] Last Admin: 05/24/24 05:48 Dose: 40 mg Documented By: TRISTAN Ondansetron HCl (Ondansetron Hcl 4 Mg/2 Ml Vial) 4 mg IVPUSH Q8H PRN PRN Reason: Nausea and Vomiting Last Admin: 05/23/24 07:53 Dose: 4 mg Documented By: YOLIE Simethicone (Simethicone 80 Mg Tab.Chew) 80 mg PO QIDWMHS PRN PRN Reason: bloating Sodium Chloride (0.9 % Sodium Chloride Flush 3 Ml Syringe) 3 ml IVFLUSH QSHIFT [facility] Last Admin: 05/24/24 08:44 Dose: 3 ml Documented By: YOLIE Tamsulosin HCl (Tamsulosin Hcl 0.4 Mg Capsule) 0.8 mg PO BEDTIME [facility] Last Admin: 05/23/24 21:54 Dose: 0.8 mg Documented By: SEXK Labs 05/19/24 09:46 05/24/24 05:39 Labs: Laboratory Results - last 24 hr 05/23/24 05/23/24 05/24/24 16:14 20:49 05:39 Anion Gap 18 Estim Creat Clear Calc 8.2 Estimated GFR 5 POC Glucose 141 H 161 H Random Glucose 101 Calcium 7.8 L 05/24/24 05/24/24 07:29 11:15 Anion Gap Estim Creat Clear Calc Estimated GFR POC Glucose 111 159 H Random Glucose Calcium Microbiology Microbiology Results: Microbiology 05/22/24 Unknown Urine Culture - Final Urine Catheterized - Straight Catheter No growth. Assessment and Plan (1) ESRD needing dialysis: Status: Acute (2) Non-insulin dependent type 2 diabetes mellitus: Status: Acute (3) GIA (acute kidney injury): Status: Acute Plan 59-year-old male with diabetes, hypertension, hyperlipidemia, presented with some abdominal discomfort nausea vomiting diarrhea, cough with pleuritic chest pain and is found to have acute Kidney Injury, proctitis and bronchitis Acute renal failure requiring acute hemodialysis multifactorial in nature, HTN, DM, unclear other factors Tolerated 2 HD sessions Cr at 10.7 CT abd:There is moderate right renal atrophy in comparison with the left. No calculi or hydronephrosis. hepatitis serologies negative (Hep B immune) +ve HSV I&II IgG LIANG ,c3,c4 pending, UA-has protein ,glucouria, large3+ blood, rbc >20, wbc 11-20,Leukocyte estrase +,bacteruria 4+. urine protein >2000,urine cr is 11.28 urine cultures added. nephrology following, continue Dialysis for now to do renal biopsy tomorrow Constipation CT reported abnormal findings suggestive of proctatitis, no clinical finding to suggest it DC IV Abx symptomatic measures ID input appreciated Added lidocaine patch. continue bowel regimen Bronchitis breathing treatment Diabetes hold metfromin and give sliding scvale insulin, diabetic diet Hypertension resume home meds Hyperlipidemia statin dvt prophylaxis s/c heparin ongoing need for stay- worsening gia-need HD,nephrology following Quality Stroke Does the patient have a stroke diagnosis?: No VTE Prior VTE?: No VTE Risk Level:: Medical - moderate - high VTE Device Contraindication: Treatment Not Indicated VTE Drug Contraindication: N/A - Med Ordered
[2024-05-24 15:18] VITALS: BP 172/66; PULSE 93; RESP 16; TEMP 36.9; O2SAT 96
[2024-05-24] MEDS: hydrALAZINE HCl 25 MG TABLET PO ×2 (15:24→20:42)
[2024-05-24 16:12] LABS: Glucose, Whole Blood 132 mg/dL (60-115)
[2024-05-24 19:03] VITALS: BP 174/66; PULSE 83; RESP 16; TEMP 37.3; O2SAT 97
[2024-05-24 20:42] VITALS: BP 174/66
[2024-05-24] MEDS: Tamsulosin HCL 0.4 MG CAPSULE 0.8 MG PO (20:42)
[2024-05-24 20:54] LABS: Glucose, Whole Blood 112 mg/dL (60-115)
[2024-05-25 03:25] VITALS: BP 159/85; PULSE 97; RESP 16; TEMP 37.1; O2SAT 94
[2024-05-25] MEDS: Omeprazole 40 MG CAPSULE.DR PO (05:46)
[2024-05-25 06:47] LABS: MANUAL DIFF FLAG NO
[2024-05-25 06:58] LABS: Basophils Percent Auto 0.3 % (0-2); Eosinophils Absolute Auto 0.1 X10*3/uL (0.0-0.4); Eosinophils Percent Auto 0.7 % (0-4); Hematocrit 28.8 % (42.0-52.0); Hemoglobin 10.2 g/dl (14.0-18.0); Imm Gran Pct Auto 1.5 % (0.0-0.4); Lymphocytes Absolute Auto 1.5 X10*3/uL (1.2-4.9); Lymphocytes Percent Auto 22.1 % (20-40); Mean Corpuscular HGB Conc 35.4 g/dl (31.0-36.0); Mean Corpuscular Hemoglobin 28.9 pg (27.0-33.0); Mean Corpuscular Volume 81.6 fL (80.0-98.0); Mean Platelet Volume 9.6 fL (9.4-12.4); Monocytes Absolute Auto 0.7 X10*3/uL (0.1-1.2); Monocytes Percent Auto 9.7 % (2-11); Neutrophils Absolute Auto 4.5 x10*3/uL (2.0-8.3); Neutrophils Percent Auto 65.7 % (45-73); Platelet Count 199 X10*3/uL (160-400); Red Blood Count 3.53 X10*6/uL (4.60-5.80); Red Cell Distribution Width 13.5 % (11.0-16.0); White Blood Count 6.8 X10*3/uL (4.8-10.8)
[2024-05-25 07:37] LABS: Anion Gap 21 (12-20); Blood Urea Nitrogen 71 mg/dL (9-16); Calcium 7.8 mg/dL (8.4-10.2); Carbon Dioxide 17 mmol/L (22-29); Chloride 102 mmol/L (96-108); Creatinine Clr Calc Pharmacy 6.8; Estimated Glomerular Filt Rate 4; Glucose Random 93 mg/dL (60-115); Potassium 3.8 mmol/L (3.3-5.1); Sodium 136 mmol/L (135-145)
[2024-05-25 08:00] VITALS: BP 180/76; PULSE 89; RESP 17; TEMP 36.4; O2SAT 94
[2024-05-25 08:05] LABS: Glucose, Whole Blood 97 mg/dL (60-115)
[2024-05-25] MEDS: 0.9 % Sodium Chloride Flush 3 ML SYRINGE IVFLUSH ×3 (09:09→20:03)
[2024-05-25 09:10] VITALS: BP 180/76
[2024-05-25] MEDS: hydrALAZINE HCl 25 MG TABLET PO (09:10)
[2024-05-25] MEDS: Multivitamin TABLET 1 TAB PO (09:10)
[2024-05-25] MEDS: amLODIPine Besylate 5 MG TABLET PO (09:10)
[2024-05-25] MEDS: Acetaminophen 325 MG TABLET 975 MG PO ×2 (09:10→20:03)
[2024-05-25] MEDS: Lidocaine 4 % Patch ADH..PATCH 1 PATCH TRANSDERMA (09:11)
[2024-05-25 11:13] LABS: Glucose, Whole Blood 90 mg/dL (60-115)
[2024-05-25 11:19] LABS: INTERNATIONAL NORM RATIO 0.9 (0.9-1.1)
--- NOTE | 2024-05-25 11:36 | P.PNNP_ITS ---
Subjective Subjective Date of Service: 05/25/24 Interval history: Seen and evaluated this morning feels little better, Cr mildly better after dialysis No significant urine output but making little more Physical Exam 2 Vital Signs: Vital Signs: Last Vital Signs Temp 97.5 F 05/25/24 08:00 Pulse 89 05/25/24 08:00 Resp 17 05/25/24 08:00 BP 180/76 H 05/25/24 09:10 Pulse Ox 94 05/25/24 08:00 O2 Del Method Room Air 05/25/24 08:00 BMI result Body Mass Index 28.9 Objective Data Labs 05/26/24 05:42 05/26/24 05:42 Labs: Laboratory Results - last 24 hr 05/24/24 05/24/24 05/25/24 16:09 20:50 05:34 WBC 6.8 RBC 3.53 L D Hgb 10.2 L D Hct 28.8 L D MCV 81.6 MCH 28.9 MCHC 35.4 RDW 13.5 Plt Count 199 MPV 9.6 Immature Gran % (Auto) 1.5 H Neut % (Auto) 65.7 Lymph % (Auto) 22.1 [place] % (Auto) 9.7 Eos % (Auto) 0.7 Baso % (Auto) 0.3 Lymph # (Auto) 1.5 [place] # (Auto) 0.7 Eos # (Auto) 0.1 Baso # (Auto) 0.0 Abs Immat Gran (auto) 0.10 H Absolute Neuts (auto) 4.5 Absolute Nucleated RBC 0.000 Nucleated RBC % (auto) 0.0 PT INR Sodium 136 Potassium 3.8 Chloride 102 Carbon Dioxide 17 L Anion Gap 21 H BUN 71 H Creatinine 13.14 H* Estim Creat Clear Calc 6.8 Estimated GFR 4 POC Glucose 132 H 112 Random Glucose 93 Calcium 7.8 L 05/25/24 05/25/24 05/25/24 08:02 11:03 11:10 WBC RBC Hgb Hct MCV MCH MCHC RDW Plt Count MPV Immature Gran % (Auto) Neut % (Auto) Lymph % (Auto) [place] % (Auto) Eos % (Auto) Baso % (Auto) Lymph # (Auto) [place] # (Auto) Eos # (Auto) Baso # (Auto) Abs Immat Gran (auto) Absolute Neuts (auto) Absolute Nucleated RBC Nucleated RBC % (auto) PT 11.0 INR 0.9 Sodium Potassium Chloride Carbon Dioxide Anion Gap BUN Creatinine Estim Creat Clear Calc Estimated GFR POC Glucose 97 90 Random Glucose Calcium Microbiology Microbiology Results: Microbiology 05/19/24 17:44 Blood - Venous Blood Culture - Final No growth after 5 days. 05/19/24 17:23 Blood - Venous Blood Culture - Final No growth after 5 days. 05/22/24 Unknown Urine Catheterized - Straight Catheter Urine Culture - Final No growth. Procedures Date of Service Date of Service: 05/26/24 Assessment & Plan Assessment and plan (1) RAMONITA (acute kidney injury): Status: Acute Plan RAMONITA Different diagnosis includes ATN/acute glomerular nephritis. Currently anuric. No overt signs or symptoms of uremia. Plan HD today Workup for a GN under way. Significnat proteinuria Avoid needle biopsy Time Spent With Patient Time: Total time managing care of this patient today ____ minutes. Progress Note: Quality Stroke Does the patient have a stroke diagnosis?: No
[2024-05-25 11:53] LABS: Prot Elec - Albumin 2.9 g/dL (3.8-4.8); Prot Elec - Alpha1 0.4 g/dL (0.2-0.3); Prot Elec - Alpha2 0.9 g/dL (0.5-0.9); Prot Elec - Beta 1 0.3 g/dL (0.4-0.6); Prot Elec - Beta 2 0.4 g/dL (0.2-0.5); Prot Elec - Gamma 0.4 g/dL (0.8-1.7); Prot Elec - Total Protein 5.2 g/dL (6.1-8.1)
--- NOTE | 2024-05-25 12:09 | HO.PM.IMPN ---
Subjective Subjective Date of Service: 05/25/24 Interval History: Seen and evaluated this morning feels little better, Cr elevated at 13 with metabolic acidosis making more urine output Physical Exam Vital Signs: Vital Signs: Last Vital Signs Temp 97.5 F 05/25/24 08:00 Pulse 89 05/25/24 08:00 Resp 17 05/25/24 08:00 BP 180/76 H 05/25/24 09:10 Pulse Ox 94 05/25/24 08:00 O2 Del Method Room Air 05/25/24 08:00 BMI result Body Mass Index 28.9 Const: Other: Constitutional : interactive, not in distress Cardiovascular : no JVP, no lower extremity edema, Temp dialysis cath in left IJ Respiratory : bilateral chest movement, not in resp distress Gastrointestinal: soft, lax, Non tender Skin : Warm, Dry Neurological : Alert & oriented , No focal deficit Objective Data Active Medications Acetaminophen (Acetaminophen 325 Mg Tablet) 975 mg PO Q6H [facility] Last Admin: 05/25/24 09:10 Dose: 975 mg Documented By: ECHO Al Hydroxide/Mg Hydroxide (Magnesium Hydrox/Alum Hydrox 30 Ml Oral.Susp) 30 ml PO Q4H PRN PRN Reason: Heartburn Amlodipine Besylate (Amlodipine Besylate 5 Mg Tablet) 5 mg PO DAILY [facility]; Protocol Last Admin: 05/25/24 09:10 Dose: 5 mg Documented By: ECHO Aspirin (Aspirin 81 Mg Tab.Chew) 81 mg PO DAILY [facility] Last Admin: 05/24/24 08:43 Dose: 81 mg Documented By: YOLIE Atorvastatin Calcium (Atorvastatin Calcium 80 Mg Tablet) 80 mg PO DAILY [facility] Last Admin: 05/21/24 10:12 Dose: Not Given Documented By: BRITTNEY Non-Admin Reason: Physician Held Med Calcium Carbonate (Calcium Carbonate 750 Mg Tab.Chew) 750 mg PO Q4H PRN PRN Reason: Heartburn Glucose (Glucose Gel 15 Gm Gel..Gram.) 15 gm PO Q15M PRN; Protocol PRN Reason: per Hypoglycemia Standing Ord. Heparin Sodium (Porcine) (Heparin Sodium,Porcine 5,000 Unit/Ml Vial) 5,000 unit SUBCUT Q8H [facility] Last Admin: 05/24/24 17:08 Dose: 5,000 unit Documented By: YOLIE Hydralazine HCl (Hydralazine Hcl 25 Mg Tablet) 25 mg PO TID [facility]; Protocol Last Admin: 05/25/24 09:10 Dose: 25 mg Documented By: ECHO Hydromorphone HCl (Hydromorphone Hcl 0.5 Mg/0.5 Ml Syringe) 0.5 mg IVPUSH Q4H PRN; Protocol PRN Reason: Pain, Severe (Pain Scale 7-10) Last Admin: 05/22/24 09:36 Dose: 0.5 mg Documented By: BRITTNEY Dextrose (D10) 250 mls @ 750 mls/hr IV Q15M PRN; Protocol PRN Reason: per Hypoglycemia Standing Ord. Insulin Human Lispro (Insulin Lispro 100 Unit/Ml 3 Ml Vial) 0 unit SUBCUT QIDACHS [facility]; Protocol Last Admin: 05/25/24 11:16 Dose: Not Given Documented By: ECHO Non-Admin Reason: No Insulin Coverage Lidocaine (Lidocaine 4 % Patch Adh..Patch) 1 patch TRANSDERMA DAILY [facility]; Protocol Last Admin: 05/25/24 09:11 Dose: 1 patch Documented By: ECHO Lidocaine HCl (Lidocaine 4 % Cream Kit) 1 appl TOPICAL DAILY [facility]; Protocol Last Admin: 05/25/24 09:16 Dose: Not Given Documented By: ECHO Non-Admin Reason: Patient Refused Magnesium Hydroxide (Milk Of Magnesia 30 Ml Oral.Susp) 30 ml PO DAILY PRN PRN Reason: Constipation Melatonin (Melatonin 3 Mg Tablet) 6 mg PO BEDTIME PRN PRN Reason: Insomnia Multivitamins/Vitamin C (Multivitamin Tablet) 1 tab PO DAILY [facility] Last Admin: 05/25/24 09:10 Dose: 1 tab Documented By: ECHO Non-Formulary Medication (Umeclidinium-Vilanterol [Anoro Ellipta]) 1 inhalation INHALE RDAILY [facility] Last Admin: 05/25/24 07:45 Dose: Not Given Documented By: DANELLE Non-Admin Reason: Patient Refused Omeprazole (Omeprazole 40 Mg Capsule.) 40 mg PO DAILY@0630 [facility] Last Admin: 05/25/24 05:46 Dose: 40 mg Documented By: LEONIE Ondansetron HCl (Ondansetron Hcl 4 Mg/2 Ml Vial) 4 mg IVPUSH Q8H PRN PRN Reason: Nausea and Vomiting Last Admin: 05/23/24 07:53 Dose: 4 mg Documented By: YOLIE Simethicone (Simethicone 80 Mg Tab.Chew) 80 mg PO QIDWMHS PRN PRN Reason: bloating Sodium Chloride (0.9 % Sodium Chloride Flush 3 Ml Syringe) 3 ml IVFLUSH QSHIFT [facility] Last Admin: 05/25/24 09:09 Dose: 3 ml Documented By: ECHO Tamsulosin HCl (Tamsulosin Hcl 0.4 Mg Capsule) 0.8 mg PO BEDTIME [facility] Last Admin: 05/24/24 20:42 Dose: 0.8 mg Documented By: LEONIE Labs 05/25/24 05:34 05/25/24 05:34 Labs: Laboratory Results - last 24 hr 05/21/24 05/24/24 05/24/24 07:14 16:09 20:50 MCV MCH MCHC RDW Plt Count MPV Immature Gran % (Auto) Neut % (Auto) Lymph % (Auto) [place] % (Auto) Eos % (Auto) Baso % (Auto) Lymph # (Auto) [place] # (Auto) Eos # (Auto) Baso # (Auto) Abs Immat Gran (auto) Absolute Neuts (auto) Absolute Nucleated RBC Nucleated RBC % (auto) PT INR Anion Gap Estim Creat Clear Calc Estimated GFR POC Glucose 132 H 112 Random Glucose Calcium Total Protein (PEP) 5.2 L Albumin (PEP) 2.9 L Xffwm-0-Rmqnwjqrd 0.4 H Avtkn-7-Qqgwsnogh 0.9 Kjcs-6-Wxegdzxj 0.3 L Aafx-0-Qazipqdx 0.4 Gamma Globulins 0.4 L PEP Interpretation SEE NOTE Blood Type 05/25/24 05/25/24 05/25/24 05:34 08:02 11:03 MCV 81.6 MCH 28.9 MCHC 35.4 RDW 13.5 Plt Count 199 MPV 9.6 Immature Gran % (Auto) 1.5 H Neut % (Auto) 65.7 Lymph % (Auto) 22.1 [place] % (Auto) 9.7 Eos % (Auto) 0.7 Baso % (Auto) 0.3 Lymph # (Auto) 1.5 [place] # (Auto) 0.7 Eos # (Auto) 0.1 Baso # (Auto) 0.0 Abs Immat Gran (auto) 0.10 H Absolute Neuts (auto) 4.5 Absolute Nucleated RBC 0.000 Nucleated RBC % (auto) 0.0 PT 11.0 INR 0.9 Anion Gap 21 H Estim Creat Clear Calc 6.8 Estimated GFR 4 POC Glucose 97 Random Glucose 93 Calcium 7.8 L Total Protein (PEP) Albumin (PEP) Shwyy-2-Embcmeexf Epqrh-1-Ugpmnnmce Lrjw-8-Jkzpkyng Cmve-6-Cfdqottx Gamma Globulins PEP Interpretation Blood Type A Positive 05/25/24 11:10 MCV MCH MCHC RDW Plt Count MPV Immature Gran % (Auto) Neut % (Auto) Lymph % (Auto) [place] % (Auto) Eos % (Auto) Baso % (Auto) Lymph # (Auto) [place] # (Auto) Eos # (Auto) Baso # (Auto) Abs Immat Gran (auto) Absolute Neuts (auto) Absolute Nucleated RBC Nucleated RBC % (auto) PT INR Anion Gap Estim Creat Clear Calc Estimated GFR POC Glucose 90 Random Glucose Calcium Total Protein (PEP) Albumin (PEP) Nwidm-7-Mebssjzic Svjlq-6-Zijejbijb Mzym-7-Yuukbcvu Tyke-0-Udtwilkg Gamma Globulins PEP Interpretation Blood Type Microbiology Microbiology Results: Microbiology 05/19/24 17:44 Blood Culture - Final Blood - Venous No growth after 5 days. 05/19/24 17:23 Blood Culture - Final Blood - Venous No growth after 5 days. 05/22/24 Unknown Urine Culture - Final Urine Catheterized - Straight Catheter No growth. Assessment and Plan (1) ESRD needing dialysis: Status: Acute (2) Uncontrolled hypertension: Status: Acute Plan 59-year-old male with diabetes, hypertension, hyperlipidemia, presented with some abdominal discomfort nausea vomiting diarrhea, cough with pleuritic chest pain and is found to have acute Kidney Injury, proctitis and bronchitis Acute renal failure with acute metabolic acidosis requiring acute hemodialysis multifactorial in nature, HTN, DM, unclear other factors; pending work up CT abd:There is moderate right renal atrophy in comparison with the left. No calculi or hydronephrosis. Tolerated 2 HD sessions Cr at 13 UA-has protein ,glucouria, large3+ blood, rbc >20, wbc 11-20,Leukocyte estrase +,bacteruria 4+. urine protein >2000,urine hepatitis serologies negative (Hep B immune). +ve HSV I&II IgG LIANG ,c3,c4 pending, nephrology following, continue Dialysis for now to do renal biopsy tomorrow Constipation CT reported abnormal findings suggestive of proctatitis, no clinical finding to suggest it DC IV Abx symptomatic measures ID input appreciated Added lidocaine patch. continue bowel regimen Bronchitis breathing treatment Diabetes hold metfromin and give sliding scvale insulin, diabetic diet Uncontrolled Hypertension Increase Hydralazine to 50 mg TID Amlodipine 5 mg daily Hyperlipidemia statin dvt prophylaxis s/c heparin ongoing need for stay- worsening gia-need HD,nephrology following Quality Stroke Does the patient have a stroke diagnosis?: No VTE Prior VTE?: No VTE Risk Level:: Medical - moderate - high VTE Device Contraindication: Treatment Not Indicated VTE Drug Contraindication: N/A - Med Ordered
[2024-05-25] MEDS: hydrALAZINE HCl 50 MG TABLET PO ×3 (13:04→20:03)
--- NOTE | 2024-05-25 15:37 | MHC.CM.PN ---
PER ROUNDS PT MAY DC TODAY PLAN REMAINS HOME
[2024-05-25 15:55] LABS: Anti Nuclear Antibody Screen NEGATIVE (NEGATIVE)
[2024-05-25 16:37] LABS: Glucose, Whole Blood 94 mg/dL (60-115)
[2024-05-25 16:45] VITALS: BP 174/84; PULSE 108; RESP 19; TEMP 36.7; O2SAT 96
[2024-05-25 17:04] VITALS: BP 174/84
[2024-05-25 19:32] VITALS: BP 179/84; PULSE 99; RESP 16; TEMP 36.7; O2SAT 95
[2024-05-25] MEDS: Insulin Lispro 100 UNIT/ML 3 ML VIAL SUBCUT (20:02)
[2024-05-25] MEDS: Tamsulosin HCL 0.4 MG CAPSULE 0.8 MG PO (20:03)
[2024-05-25 20:06] LABS: Glucose, Whole Blood 234 mg/dL (60-115)
[2024-05-26] VITALS (8 sets, daily range): BP systolic 138–182; BP diastolic 70–84; PULSE 89–102; RESP 16–18; TEMP 36.6–37.4; O2SAT 95–96
[2024-05-26 00:45] LABS: Complement C3 124 mg/dL (82-185)
[2024-05-26] MEDS: Omeprazole 40 MG CAPSULE.DR PO (05:46)
[2024-05-26 07:25] LABS: Glucose, Whole Blood 112 mg/dL (60-115)
[2024-05-26 07:58] LABS: MANUAL DIFF FLAG NO
[2024-05-26 08:13] LABS: Basophils Percent Auto 0.3 % (0-2); Eosinophils Absolute Auto 0.1 X10*3/uL (0.0-0.4); Eosinophils Percent Auto 0.9 % (0-4); Hematocrit 30.3 % (42.0-52.0); Hemoglobin 10.5 g/dl (14.0-18.0); Imm Gran Abs Auto 0.14 X10*3/uL (0.00-0.03); Imm Gran Pct Auto 2.2 % (0.0-0.4); Lymphocytes Absolute Auto 1.4 X10*3/uL (1.2-4.9); Lymphocytes Percent Auto 22.2 % (20-40); Mean Corpuscular HGB Conc 34.7 g/dl (31.0-36.0); Mean Corpuscular Hemoglobin 28.2 pg (27.0-33.0); Mean Corpuscular Volume 81.2 fL (80.0-98.0); Mean Platelet Volume 9.2 fL (9.4-12.4); Monocytes Absolute Auto 0.7 X10*3/uL (0.1-1.2); Monocytes Percent Auto 11.2 % (2-11); Neutrophils Absolute Auto 4.1 x10*3/uL (2.0-8.3); Neutrophils Percent Auto 63.2 % (45-73); Platelet Count 227 X10*3/uL (160-400); Red Blood Count 3.73 X10*6/uL (4.60-5.80); Red Cell Distribution Width 13.7 % (11.0-16.0); White Blood Count 6.5 X10*3/uL (4.8-10.8)
[2024-05-26 08:45] LABS: Anion Gap 21 (12-20); Blood Urea Nitrogen 55 mg/dL (9-16); Calcium 8.3 mg/dL (8.4-10.2); Carbon Dioxide 20 mmol/L (22-29); Chloride 101 mmol/L (96-108); Creatinine Clr Calc Pharmacy 8.5; Estimated Glomerular Filt Rate 5; Glucose Random 98 mg/dL (60-115); Potassium 3.9 mmol/L (3.3-5.1); Sodium 138 mmol/L (135-145)
[2024-05-26] MEDS: hydrALAZINE HCl 50 MG TABLET PO ×3 (08:56→22:02)
[2024-05-26] MEDS: amLODIPine Besylate 5 MG TABLET PO (08:57)
[2024-05-26] MEDS: Multivitamin TABLET 1 TAB PO (08:57)
[2024-05-26] MEDS: 0.9 % Sodium Chloride Flush 3 ML SYRINGE IVFLUSH ×3 (08:57→22:03)
[2024-05-26] MEDS: Acetaminophen 325 MG TABLET 975 MG PO (08:57)
[2024-05-26] MEDS: Lidocaine 4 % Patch ADH..PATCH 1 PATCH TRANSDERMA (08:58)
--- NOTE | 2024-05-26 10:55 | P.PNNP_ITS ---
Subjective Subjective Date of Service: 05/26/24 Interval history: Events noted. Family at bedside. Had dialysis yesterday Physical Exam 2 Vital Signs: Vital Signs: Last Vital Signs Temp 99.1 F 05/26/24 08:00 Pulse 94 05/26/24 08:00 Resp 17 05/26/24 08:00 BP 182/70 H 05/26/24 08:57 Pulse Ox 95 05/26/24 08:00 O2 Del Method Room Air 05/26/24 08:00 BMI result Body Mass Index 28.9 Const: Other: Constitutional : interactive, not in distress Cardiovascular : no JVP, no lower extremity edema, Temp dialysis cath in left IJ Respiratory : bilateral chest movement, not in resp distress Gastrointestinal: soft, lax, Non tender Skin : Warm, Dry Neurological : Alert & oriented , No focal deficit Objective Data Labs 05/26/24 05:42 05/26/24 05:42 Labs: Laboratory Results - last 24 hr 05/21/24 05/25/24 05/25/24 07:14 11:03 11:10 WBC RBC Hgb Hct MCV MCH MCHC RDW Plt Count MPV Immature Gran % (Auto) Neut % (Auto) Lymph % (Auto) [place] % (Auto) Eos % (Auto) Baso % (Auto) Lymph # (Auto) [place] # (Auto) Eos # (Auto) Baso # (Auto) Abs Immat Gran (auto) Absolute Neuts (auto) Absolute Nucleated RBC Nucleated RBC % (auto) PT 11.0 INR 0.9 Sodium Potassium Chloride Carbon Dioxide Anion Gap BUN Creatinine Estim Creat Clear Calc Estimated GFR POC Glucose 90 Random Glucose Calcium Total Protein (PEP) 5.2 L Albumin (PEP) 2.9 L Jvbfh-1-Nrybdnntz 0.4 H Lcarc-9-Ovcdevdfs 0.9 Gnyi-7-Kbbursbz 0.3 L Zzii-5-Kbbkbbrx 0.4 Gamma Globulins 0.4 L Abnorm Protein Band 1 TNP Abnorm Protein Band 2 TNP Abnorm Protein Band 3 TNP PEP Interpretation SEE NOTE LAING Screen NEGATIVE LIANG Titer TNP LIANG Titer 2 TNP LIANG Titer 3 TNP LIANG Pattern TNP LIANG Pattern 2 TNP LIANG Pattern 3 TNP Complement C3 124 Complement C4 23 Blood Type A Positive Antibody Screen NEGATIVE 05/25/24 05/25/24 05/26/24 16:28 19:52 05:42 WBC 6.5 RBC 3.73 L Hgb 10.5 L Hct 30.3 L MCV 81.2 MCH 28.2 MCHC 34.7 RDW 13.7 Plt Count 227 MPV 9.2 L Immature Gran % (Auto) 2.2 H Neut % (Auto) 63.2 Lymph % (Auto) 22.2 [place] % (Auto) 11.2 H Eos % (Auto) 0.9 Baso % (Auto) 0.3 Lymph # (Auto) 1.4 [place] # (Auto) 0.7 Eos # (Auto) 0.1 Baso # (Auto) 0.0 Abs Immat Gran (auto) 0.14 H Absolute Neuts (auto) 4.1 Absolute Nucleated RBC 0.000 Nucleated RBC % (auto) 0.0 PT INR Sodium 138 Potassium 3.9 Chloride 101 Carbon Dioxide 20 L Anion Gap 21 H BUN 55 H Creatinine 10.62 H* Estim Creat Clear Calc 8.5 Estimated GFR 5 POC Glucose 94 234 H Random Glucose 98 Calcium 8.3 L D Total Protein (PEP) Albumin (PEP) Klygn-9-Mlqvtyyfb Fqlax-3-Pxsosoayo Poxj-4-Vntsvhpd Khdp-0-Wpqmqfxf Gamma Globulins Abnorm Protein Band 1 Abnorm Protein Band 2 Abnorm Protein Band 3 PEP Interpretation LIANG Screen LIANG Titer LIANG Titer 2 LIANG Titer 3 LIANG Pattern LIANG Pattern 2 LIANG Pattern 3 Complement C3 Complement C4 Blood Type Antibody Screen 05/26/24 07:21 WBC RBC Hgb Hct MCV MCH MCHC RDW Plt Count MPV Immature Gran % (Auto) Neut % (Auto) Lymph % (Auto) [place] % (Auto) Eos % (Auto) Baso % (Auto) Lymph # (Auto) [place] # (Auto) Eos # (Auto) Baso # (Auto) Abs Immat Gran (auto) Absolute Neuts (auto) Absolute Nucleated RBC Nucleated RBC % (auto) PT INR Sodium Potassium Chloride Carbon Dioxide Anion Gap BUN Creatinine Estim Creat Clear Calc Estimated GFR POC Glucose 112 Random Glucose Calcium Total Protein (PEP) Albumin (PEP) Bqkru-1-Bctxlstji Daghf-1-Pkqdkpoos Apjp-0-Xjvsbczn Jsuf-5-Anxohxiv Gamma Globulins Abnorm Protein Band 1 Abnorm Protein Band 2 Abnorm Protein Band 3 PEP Interpretation LIANG Screen LIANG Titer LIANG Titer 2 LIANG Titer 3 ILANG Pattern LIANG Pattern 2 LIANG Pattern 3 Complement C3 Complement C4 Blood Type Antibody Screen Microbiology Microbiology Results: Microbiology 05/19/24 17:44 Blood - Venous Blood Culture - Final No growth after 5 days. 05/19/24 17:23 Blood - Venous Blood Culture - Final No growth after 5 days. 05/22/24 Unknown Urine Catheterized - Straight Catheter Urine Culture - Final No growth. Procedures Date of Service Date of Service: 05/26/24 Assessment & Plan Assessment and plan (1) RAMONITA (acute kidney injury): Status: Acute Plan RAMONITA Different diagnosis includes ATN/acute glomerular nephritis. Currently anuric. No overt signs or symptoms of uremia. Significant hypertension Plan HD tomorrow Workup for a GN under way. Significnat nephrotic range proteinuria Await kidney biopsy Increase hydralazine to 100 mg t.i.d. Time Spent With Patient Time: Total time managing care of this patient today ____ minutes. Progress Note: Quality Stroke Does the patient have a stroke diagnosis?: No
[2024-05-26 11:15] LABS: Glucose, Whole Blood 204 mg/dL (60-115)
[2024-05-26] MEDS: Insulin Lispro 100 UNIT/ML 3 ML VIAL SUBCUT ×2 (11:52→22:02)
--- NOTE | 2024-05-26 12:59 | P.PNIM_ITS ---
Subjective Subjective Date of Service: 05/26/24 Interval History: Seen and evaluated this morning feels little better, making more urine of 600cc Cr trended down to 10 after dialysis no other events Review of Systems Review of Systems: Yes all other systems are reviewed and are negative Physical Exam 2 Vital Signs: Vital Signs: Last Vital Signs Temp 99.1 F 05/26/24 08:00 Pulse 94 05/26/24 08:00 Resp 17 05/26/24 08:00 BP 138/70 05/26/24 12:04 Pulse Ox 95 05/26/24 08:00 O2 Del Method Room Air 05/26/24 08:00 BMI result Body Mass Index 28.9 Const: Other: Constitutional : interactive, not in distress Cardiovascular : no JVP, no lower extremity edema, Temp dialysis cath in left IJ Respiratory : bilateral chest movement, not in resp distress Gastrointestinal: soft, lax, Non tender Skin : Warm, Dry Neurological : Alert & oriented , No focal deficit Objective Data Active Medications Acetaminophen (Acetaminophen 325 Mg Tablet) 975 mg PO Q6H [facility] Last Admin: 05/26/24 08:57 Dose: 975 mg Documented By: ECHO Al Hydroxide/Mg Hydroxide (Magnesium Hydrox/Alum Hydrox 30 Ml Oral.Susp) 30 ml PO Q4H PRN PRN Reason: Heartburn Amlodipine Besylate (Amlodipine Besylate 5 Mg Tablet) 5 mg PO DAILY [facility]; Protocol Last Admin: 05/26/24 08:57 Dose: 5 mg Documented By: ECHO Aspirin (Aspirin 81 Mg Tab.Chew) 81 mg PO DAILY [facility] Last Admin: 05/24/24 08:43 Dose: 81 mg Documented By: YOLIE Atorvastatin Calcium (Atorvastatin Calcium 80 Mg Tablet) 80 mg PO DAILY [facility] Last Admin: 05/21/24 10:12 Dose: Not Given Documented By: BRITTNEY Non-Admin Reason: Physician Held Med Calcium Carbonate (Calcium Carbonate 750 Mg Tab.Chew) 750 mg PO Q4H PRN PRN Reason: Heartburn Glucose (Glucose Gel 15 Gm Gel..Gram.) 15 gm PO Q15M PRN; Protocol PRN Reason: per Hypoglycemia Standing Ord. Heparin Sodium (Porcine) (Heparin Sodium,Porcine 5,000 Unit/Ml Vial) 5,000 unit SUBCUT Q8H [facility] Last Admin: 05/24/24 17:08 Dose: 5,000 unit Documented By: YOLIE Hydralazine HCl (Hydralazine Hcl 50 Mg Tablet) 50 mg PO TID [facility]; Protocol Last Admin: 05/26/24 08:56 Dose: 50 mg Documented By: ECHO Hydromorphone HCl (Hydromorphone Hcl 0.5 Mg/0.5 Ml Syringe) 0.5 mg IVPUSH Q4H PRN; Protocol PRN Reason: Pain, Severe (Pain Scale 7-10) Last Admin: 05/22/24 09:36 Dose: 0.5 mg Documented By: BRITTNEY Dextrose (D10) 250 mls @ 750 mls/hr IV Q15M PRN; Protocol PRN Reason: per Hypoglycemia Standing Ord. Insulin Human Lispro (Insulin Lispro 100 Unit/Ml 3 Ml Vial) 0 unit SUBCUT QIDACHS [facility]; Protocol Last Admin: 05/26/24 11:52 Dose: 4 unit Documented By: ECHO Lidocaine (Lidocaine 4 % Patch Adh..Patch) 1 patch TRANSDERMA DAILY [facility]; Protocol Last Admin: 05/26/24 08:58 Dose: 1 patch Documented By: ECHO Lidocaine HCl (Lidocaine 4 % Cream Kit) 1 appl TOPICAL DAILY [facility]; Protocol Last Admin: 05/26/24 09:02 Dose: Not Given Documented By: ECHO Non-Admin Reason: Patient Refused Magnesium Hydroxide (Milk Of Magnesia 30 Ml Oral.Susp) 30 ml PO DAILY PRN PRN Reason: Constipation Melatonin (Melatonin 3 Mg Tablet) 6 mg PO BEDTIME PRN PRN Reason: Insomnia Multivitamins/Vitamin C (Multivitamin Tablet) 1 tab PO DAILY [facility] Last Admin: 05/26/24 08:57 Dose: 1 tab Documented By: ECHO Non-Formulary Medication (Umeclidinium-Vilanterol [Anoro Ellipta]) 1 inhalation INHALE RDAILY [facility] Last Admin: 05/26/24 08:21 Dose: Not Given Documented By: DANELLE Non-Admin Reason: Patient Refused Omeprazole (Omeprazole 40 Mg Prerna.) 40 mg PO DAILY@0630 [facility] Last Admin: 05/26/24 05:46 Dose: 40 mg Documented By: LEONIE Ondansetron HCl (Ondansetron Hcl 4 Mg/2 Ml Vial) 4 mg IVPUSH Q8H PRN PRN Reason: Nausea and Vomiting Last Admin: 05/23/24 07:53 Dose: 4 mg Documented By: YOLIE Simethicone (Simethicone 80 Mg Tab.Chew) 80 mg PO QIDWMHS PRN PRN Reason: bloating Sodium Chloride (0.9 % Sodium Chloride Flush 3 Ml Syringe) 3 ml IVFLUSH QSHIFT [facility] Last Admin: 05/26/24 08:57 Dose: 3 ml Documented By: ECHO Tamsulosin HCl (Tamsulosin Hcl 0.4 Mg Capsule) 0.8 mg PO BEDTIME [facility] Last Admin: 05/25/24 20:03 Dose: 0.8 mg Documented By: LEONIE Labs 05/26/24 05:42 05/26/24 05:42 Labs: Laboratory Results - last 24 hr 05/21/24 05/25/24 05/25/24 07:14 16:28 19:52 MCV MCH MCHC RDW Plt Count MPV Immature Gran % (Auto) Neut % (Auto) Lymph % (Auto) [place] % (Auto) Eos % (Auto) Baso % (Auto) Lymph # (Auto) [place] # (Auto) Eos # (Auto) Baso # (Auto) Abs Immat Gran (auto) Absolute Neuts (auto) Absolute Nucleated RBC Nucleated RBC % (auto) Anion Gap Estim Creat Clear Calc Estimated GFR POC Glucose 94 234 H Random Glucose Calcium Abnorm Protein Band 1 TNP Abnorm Protein Band 2 TNP Abnorm Protein Band 3 TNP LIANG Screen NEGATIVE LIANG Titer TNP LIANG Titer 2 TNP LIANG Titer 3 TNP LIANG Pattern TNP LIANG Pattern 2 TNP LIANG Pattern 3 TNP Complement C3 124 Complement C4 05/26/24 05/26/24 05/26/24 05:42 07:21 11:11 MCV 81.2 MCH 28.2 MCHC 34.7 RDW 13.7 Plt Count 227 MPV 9.2 L Immature Gran % (Auto) 2.2 H Neut % (Auto) 63.2 Lymph % (Auto) 22.2 [place] % (Auto) 11.2 H Eos % (Auto) 0.9 Baso % (Auto) 0.3 Lymph # (Auto) 1.4 [place] # (Auto) 0.7 Eos # (Auto) 0.1 Baso # (Auto) 0.0 Abs Immat Gran (auto) 0.14 H Absolute Neuts (auto) 4.1 Absolute Nucleated RBC 0.000 Nucleated RBC % (auto) 0.0 Anion Gap 21 H Estim Creat Clear Calc 8.5 Estimated GFR 5 POC Glucose 112 204 H Random Glucose 98 Calcium 8.3 L D Abnorm Protein Band 1 Abnorm Protein Band 2 Abnorm Protein Band 3 LIANG Screen LIANG Titer LIANG Titer 2 LIANG Titer 3 LIANG Pattern LIANG Pattern 2 ILANG Pattern 3 Complement C3 Complement C4 Assessment and Plan (1) ESRD needing dialysis: Status: Acute (2) Uncontrolled hypertension: Status: Acute (3) Non-insulin dependent type 2 diabetes mellitus: Status: Acute Plan 59-year-old male with diabetes, hypertension, hyperlipidemia, presented with some abdominal discomfort nausea vomiting diarrhea, cough with pleuritic chest pain and is found to have acute Kidney Injury, proctitis and bronchitis Acute renal failure with acute metabolic acidosis requiring acute hemodialysis multifactorial in nature, HTN, DM, unclear other factors; pending work up CT abd:There is moderate right renal atrophy in comparison with the left. No calculi or hydronephrosis. Tolerated 3 HD sessions Cr at 10 after HD UA-has protein ,glucouria, large3+ blood, rbc >20, wbc 11-20,Leukocyte estrase +,bacteruria 4+. urine protein >2000,urine hepatitis serologies negative (Hep B immune). +ve HSV I&II IgG LIANG ,c3,c4 pending, nephrology following, continue Dialysis for now to do renal biopsy next week if he stays inpatient (needs aspirin to be off >5 days per IR) Uncontrolled Hypertension better controlled Increased Hydralazine to 50 mg TID Amlodipine [address] reported abnormal findings suggestive of proctatitis, no clinical finding to suggest it DC IV Abx, symptomatic measures ID input appreciated Added lidocaine patch. continue bowel regimen Bronchitis breathing treatment Diabetes hold metfromin and give sliding scvale insulin, diabetic diet Hyperlipidemia statin dvt prophylaxis s/c heparin ongoing need for stay- worsening gia-need HD and close monitoring of KFT and urine output ,nephrology following Quality Stroke Does the patient have a stroke diagnosis?: No VTE Prior VTE?: No VTE Risk Level:: Medical - moderate - high VTE Device Contraindication: Treatment Not Indicated VTE Drug Contraindication: N/A - Med Ordered
[2024-05-26 16:13] LABS: Glucose, Whole Blood 113 mg/dL (60-115)
[2024-05-26 20:15] LABS: Glucose, Whole Blood 166 mg/dL (60-115)
[2024-05-26] MEDS: Tamsulosin HCL 0.4 MG CAPSULE 0.8 MG PO (22:01)
[2024-05-27] VITALS (8 sets, daily range): BP systolic 159–164; BP diastolic 78–84; PULSE 93–108; RESP 16–20; TEMP 36.8–37.2; O2SAT 95–96
[2024-05-27] MEDS: Omeprazole 40 MG CAPSULE.DR PO (05:59)
[2024-05-27 06:21] LABS: Anion Gap 18 (12-20); Blood Urea Nitrogen 64 mg/dL (9-16); Calcium 8.7 mg/dL (8.4-10.2); Carbon Dioxide 20 mmol/L (22-29); Chloride 102 mmol/L (96-108); Estimated Glomerular Filt Rate 5; Glucose Random 113 mg/dL (60-115); Potassium 3.7 mmol/L (3.3-5.1); Sodium 136 mmol/L (135-145)
[2024-05-27 07:37] LABS: Glucose, Whole Blood 113 mg/dL (60-115)
[2024-05-27] MEDS: 0.9 % Sodium Chloride Flush 3 ML SYRINGE IVFLUSH ×2 (09:30→20:43)
[2024-05-27] MEDS: hydrALAZINE HCl 50 MG TABLET PO ×3 (09:30→20:41)
[2024-05-27] MEDS: amLODIPine Besylate 5 MG TABLET PO (09:31)
[2024-05-27] MEDS: Lidocaine 4 % Patch ADH..PATCH 1 PATCH TRANSDERMA (09:33)
[2024-05-27] MEDS: Multivitamin TABLET 1 TAB PO (09:34)
--- NOTE | 2024-05-27 10:41 | HO.PM.IMPN ---
Subjective Subjective Date of Service: 05/27/24 Interval History: seen and examined significant other beside no new complaints Review of Systems Negative except HPI/interval history. Physical Exam Vital Signs: Vital Signs: Last Vital Signs Temp 98.7 F 05/27/24 07:19 Pulse 93 05/27/24 07:19 Resp 16 05/27/24 07:19 BP 159/79 H 05/27/24 09:31 Pulse Ox 95 05/27/24 07:19 O2 Del Method Room Air 05/27/24 07:19 BMI result Body Mass Index 28.9 Const: Other: General - no acute distress, appears comfortable Cardiovascular - regular rate and rhythm, S1-S2 Lungs - normal respiratory effort, clear to auscultation bilaterally, no wheezing Abdomen - soft, nontender, no rebound or guarding Extremities - no edema bilaterally Neuro - awake and alert, no focal deficits Objective Data Active Medications Acetaminophen (Acetaminophen 325 Mg Tablet) 975 mg PO Q6H [facility] Last Admin: 05/27/24 09:40 Dose: Not Given Documented By: ECHO Non-Admin Reason: Patient Refused Al Hydroxide/Mg Hydroxide (Magnesium Hydrox/Alum Hydrox 30 Ml Oral.Susp) 30 ml PO Q4H PRN PRN Reason: Heartburn Amlodipine Besylate (Amlodipine Besylate 5 Mg Tablet) 5 mg PO DAILY [facility]; Protocol Last Admin: 05/27/24 09:31 Dose: 5 mg Documented By: ECHO Aspirin (Aspirin 81 Mg Tab.Chew) 81 mg PO DAILY [facility] Last Admin: 05/24/24 08:43 Dose: 81 mg Documented By: YOLIE Atorvastatin Calcium (Atorvastatin Calcium 80 Mg Tablet) 80 mg PO DAILY [facility] Last Admin: 05/21/24 10:12 Dose: Not Given Documented By: BRITTNEY Non-Admin Reason: Physician Held Med Calcium Carbonate (Calcium Carbonate 750 Mg Tab.Chew) 750 mg PO Q4H PRN PRN Reason: Heartburn Dextrose (Dextrose 50 % 25 Gm/50 Ml Syringe) 25 gm IVPUSH Q15M PRN PRN Reason: HYPOGLYCEMIA STANDING PROTOCOL Glucose (Glucose Gel 15 Gm Gel..Gram.) 15 gm PO Q15M PRN; Protocol PRN Reason: per Hypoglycemia Standing Ord. Heparin Sodium (Porcine) (Heparin Sodium,Porcine 5,000 Unit/Ml Vial) 5,000 unit SUBCUT Q8H [facility] Last Admin: 05/24/24 17:08 Dose: 5,000 unit Documented By: YOLIE Hydralazine HCl (Hydralazine Hcl 50 Mg Tablet) 50 mg PO TID [facility]; Protocol Last Admin: 05/27/24 09:30 Dose: 50 mg Documented By: ECHO Hydromorphone HCl (Hydromorphone Hcl 0.5 Mg/0.5 Ml Syringe) 0.5 mg IVPUSH Q4H PRN; Protocol PRN Reason: Pain, Severe (Pain Scale 7-10) Last Admin: 05/22/24 09:36 Dose: 0.5 mg Documented By: BRITTNEY Insulin Human Lispro (Insulin Lispro 100 Unit/Ml 3 Ml Vial) 0 unit SUBCUT QIDACHS [facility]; Protocol Last Admin: 05/27/24 07:39 Dose: Not Given Documented By: ECHO Non-Admin Reason: No Insulin Coverage Lidocaine (Lidocaine 4 % Patch Adh..Patch) 1 patch TRANSDERMA DAILY [facility]; Protocol Last Admin: 05/27/24 09:33 Dose: 1 patch Documented By: ECHO Lidocaine HCl (Lidocaine 4 % Cream Kit) 1 appl TOPICAL DAILY [facility]; Protocol Last Admin: 05/27/24 09:33 Dose: Not Given Documented By: ECHO Non-Admin Reason: Patient Refused Magnesium Hydroxide (Milk Of Magnesia 30 Ml Oral.Susp) 30 ml PO DAILY PRN PRN Reason: Constipation Melatonin (Melatonin 3 Mg Tablet) 6 mg PO BEDTIME PRN PRN Reason: Insomnia Multivitamins/Vitamin C (Multivitamin Tablet) 1 tab PO DAILY [facility] Last Admin: 05/27/24 09:34 Dose: 1 tab Documented By: ECHO Non-Formulary Medication (Umeclidinium-Vilanterol [Anoro Ellipta]) 1 inhalation INHALE RDAILY [facility] Last Admin: 05/27/24 07:29 Dose: Not Given Documented By: SURAJ Non-Admin Reason: Patient Refused Omeprazole (Omeprazole 40 Mg Capsule.) 40 mg PO DAILY@0630 [facility] Last Admin: 05/27/24 05:59 Dose: 40 mg Documented By: GILBERT Ondansetron HCl (Ondansetron Hcl 4 Mg/2 Ml Vial) 4 mg IVPUSH Q8H PRN PRN Reason: Nausea and Vomiting Last Admin: 05/23/24 07:53 Dose: 4 mg Documented By: YOLIE Simethicone (Simethicone 80 Mg Tab.Chew) 80 mg PO QIDWMHS PRN PRN Reason: bloating Sodium Chloride (0.9 % Sodium Chloride Flush 3 Ml Syringe) 3 ml IVFLUSH QSHIFT [facility] Last Admin: 05/27/24 09:30 Dose: 3 ml Documented By: ECHO Tamsulosin HCl (Tamsulosin Hcl 0.4 Mg Capsule) 0.8 mg PO BEDTIME [facility] Last Admin: 05/26/24 22:01 Dose: 0.8 mg Documented By: GILBERT Labs 05/26/24 05:42 05/27/24 05:21 Labs: Laboratory Results - last 24 hr 05/21/24 05/26/24 05/26/24 07:14 11:11 16:09 Anion Gap Estim Creat Clear Calc Estimated GFR POC Glucose 204 H 113 Random Glucose Calcium Abnorm Protein Band 1 TNP Abnorm Protein Band 2 TNP Abnorm Protein Band 3 TNP LIANG Titer TNP LIANG Titer 2 TNP LIANG Titer 3 TNP LIANG Pattern TNP LIANG Pattern 2 TNP LIANG Pattern 3 TNP 05/26/24 05/27/24 05/27/24 20:01 05:21 07:22 Anion Gap 18 Estim Creat Clear Calc 8.0 Estimated GFR 5 POC Glucose 166 H 113 Random Glucose 113 Calcium 8.7 Abnorm Protein Band 1 Abnorm Protein Band 2 Abnorm Protein Band 3 LIANG Titer LIANG Titer 2 LIANG Titer 3 LIANG Pattern LIANG Pattern 2 LIANG Pattern 3 Assessment and Plan (1) ESRD needing dialysis: Status: Acute (2) Uncontrolled hypertension: Status: Acute (3) Non-insulin dependent type 2 diabetes mellitus: Status: Acute Plan 59-year-old male with diabetes, hypertension, hyperlipidemia, presented with some abdominal discomfort nausea vomiting diarrhea, cough with pleuritic chest pain and is found to have acute Kidney Injury, proctitis and bronchitis Acute renal failure with acute metabolic acidosis requiring acute hemodialysis multifactorial in nature, HTN, DM, unclear other factors; pending work up CT abd:There is moderate right renal atrophy in comparison with the left. No calculi or hydronephrosis. UA-has protein ,glucouria, large3+ blood, rbc >20, wbc 11-20,Leukocyte estrase +,bacteruria 4+. urine protein >2000,urine hepatitis serologies negative (Hep B immune). +ve HSV I&II IgG LIANG ,c3,c4 pending, nephrology following, continue Dialysis for now to do renal biopsy next week if he stays inpatient (needs aspirin to be off >5 days per IR) Uncontrolled Hypertension better controlled Hydralazine to 50 mg TID Amlodipine [address] reported abnormal findings suggestive of proctatitis, no clinical finding to suggest it DC IV Abx, symptomatic measures ID input appreciated Added lidocaine patch. continue bowel regimen Bronchitis breathing treatment Diabetes hold metfromin and give sliding scvale insulin, diabetic diet Hyperlipidemia statin dvt prophylaxis s/c heparin ongoing need for stay- acute kidney injury not resolved yet, needs HD Quality Stroke Does the patient have a stroke diagnosis?: No VTE Prior VTE?: No VTE Risk Level:: Medical - moderate - high VTE Device Contraindication: Treatment Not Indicated VTE Drug Contraindication: N/A - Med Ordered
[2024-05-27 11:24] LABS: Glucose, Whole Blood 141 mg/dL (60-115)
[2024-05-27 16:32] LABS: Glucose, Whole Blood 181 mg/dL (60-115)
[2024-05-27 19:53] LABS: Glucose, Whole Blood 156 mg/dL (60-115)
[2024-05-27] MEDS: Tamsulosin HCL 0.4 MG CAPSULE 0.8 MG PO (20:41)
[2024-05-27] MEDS: Acetaminophen 325 MG TABLET 975 MG PO (20:41)
[2024-05-27] MEDS: Insulin Lispro 100 UNIT/ML 3 ML VIAL SUBCUT (20:43)
--- NOTE | 2024-05-27 22:11 | P.PNNP_ITS ---
Subjective Subjective Date of Service: 05/27/24 Interval history: seen and examined significant other beside no new complaints Physical Exam 2 Vital Signs: Vital Signs: Last Vital Signs Temp 98.3 F 05/27/24 19:34 Pulse 108 H 05/27/24 19:34 Resp 20 05/27/24 19:34 BP 161/81 H 05/27/24 19:34 Pulse Ox 95 05/27/24 19:34 O2 Del Method Room Air 05/27/24 19:34 BMI result Body Mass Index 28.9 Const: Other: Constitutional : interactive, not in distress Cardiovascular : no JVP, no lower extremity edema, Temp dialysis cath in left IJ Respiratory : bilateral chest movement, not in resp distress Gastrointestinal: soft, lax, Non tender Skin : Warm, Dry Neurological : Alert & oriented , No focal deficit Objective Data Labs 05/26/24 05:42 05/27/24 05:21 Labs: Laboratory Results - last 24 hr 05/27/24 05/27/24 05/27/24 05:21 07:22 11:16 Sodium 136 Potassium 3.7 Chloride 102 Carbon Dioxide 20 L Anion Gap 18 BUN 64 H Creatinine 11.25 H* Estim Creat Clear Calc 8.0 Estimated GFR 5 POC Glucose 113 141 H Random Glucose 113 Calcium 8.7 05/27/24 05/27/24 16:27 19:36 Sodium Potassium Chloride Carbon Dioxide Anion Gap BUN Creatinine Estim Creat Clear Calc Estimated GFR POC Glucose 181 H 156 H Random Glucose Calcium Microbiology Microbiology Results: Microbiology 05/19/24 17:44 Blood - Venous Blood Culture - Final No growth after 5 days. 05/19/24 17:23 Blood - Venous Blood Culture - Final No growth after 5 days. 05/22/24 Unknown Urine Catheterized - Straight Catheter Urine Culture - Final No growth. Procedures Date of Service Date of Service: 05/27/24 Assessment & Plan Assessment and plan (1) RAMONITA (acute kidney injury): Status: Acute Plan RAMONITA Different diagnosis includes ATN/acute glomerular nephritis. Currently anuric. No overt signs or symptoms of uremia. Significant hypertension Plan HD today Workup for a GN under way. Significnat nephrotic range proteinuria Await kidney biopsy Change to Permcath Watch BP Time Spent With Patient Time: Total time managing care of this patient today ____ minutes. Progress Note: Quality Stroke Does the patient have a stroke diagnosis?: No
[2024-05-28] VITALS (12 sets, daily range): BP systolic 160–181; BP diastolic 72–82; PULSE 92–110; RESP 13–20; TEMP 36.8–37.3; O2SAT 95–97
[2024-05-28] MEDS: Omeprazole 40 MG CAPSULE.DR PO (05:56)
[2024-05-28 07:09] LABS: Glucose, Whole Blood 122 mg/dL (60-115)
[2024-05-28] MEDS: 0.9 % Sodium Chloride Flush 3 ML SYRINGE IVFLUSH ×3 (08:14→20:34)
[2024-05-28] MEDS: Lidocaine 4 % Patch ADH..PATCH 1 PATCH TRANSDERMA (08:17)
[2024-05-28] MEDS: hydrALAZINE HCl 50 MG TABLET PO ×3 (08:23→20:33)
[2024-05-28] MEDS: amLODIPine Besylate 10 MG TABLET PO (08:24)
[2024-05-28 09:01] LABS: Anion Gap 17 (12-20); Blood Urea Nitrogen 41 mg/dL (9-16); Calcium 8.9 mg/dL (8.4-10.2); Carbon Dioxide 23 mmol/L (22-29); Chloride 102 mmol/L (96-108); Glucose Random 120 mg/dL (60-115); Sodium 138 mmol/L (135-145)
[2024-05-28 09:04] LABS: Estimated Glomerular Filt Rate 7
--- NOTE | 2024-05-28 09:57 | HO.PM.IMPN ---
Subjective Subjective Date of Service: 05/28/24 Interval History: seen and examined no new complaints Physical Exam Vital Signs: Vital Signs: Last Vital Signs Temp 98.7 F 05/28/24 07:01 Pulse 110 H 05/28/24 07:49 Resp 18 05/28/24 07:49 BP 170/82 H 05/28/24 07:01 Pulse Ox 96 05/28/24 07:01 O2 Del Method Room Air 05/28/24 07:01 BMI result Body Mass Index 28.9 Const: Other: General - no acute distress, appears comfortable Cardiovascular - regular rate and rhythm, S1-S2 Lungs - normal respiratory effort, clear to auscultation bilaterally, no wheezing Abdomen - soft, nontender, no rebound or guarding Extremities - no edema bilaterally Neuro - awake and alert, no focal deficits Objective Data Active Medications Acetaminophen (Acetaminophen 325 Mg Tablet) 975 mg PO Q6H [facility] Last Admin: 05/28/24 08:14 Dose: Not Given Documented By: LORETTA Non-Admin Reason: NPO Al Hydroxide/Mg Hydroxide (Magnesium Hydrox/Alum Hydrox 30 Ml Oral.Susp) 30 ml PO Q4H PRN PRN Reason: Heartburn Amlodipine Besylate (Amlodipine Besylate 10 Mg Tablet) 10 mg PO DAILY [facility]; Protocol Last Admin: 05/28/24 08:24 Dose: 10 mg Documented By: LORETTA Aspirin (Aspirin 81 Mg Tab.Chew) 81 mg PO DAILY [facility] Last Admin: 05/24/24 08:43 Dose: 81 mg Documented By: YOLIE Atorvastatin Calcium (Atorvastatin Calcium 80 Mg Tablet) 80 mg PO DAILY [facility] Last Admin: 05/21/24 10:12 Dose: Not Given Documented By: BRITTNEY Non-Admin Reason: Physician Held Med Calcium Carbonate (Calcium Carbonate 750 Mg Tab.Chew) 750 mg PO Q4H PRN PRN Reason: Heartburn Dextrose (Dextrose 50 % 25 Gm/50 Ml Syringe) 25 gm IVPUSH Q15M PRN PRN Reason: HYPOGLYCEMIA STANDING PROTOCOL Glucose (Glucose Gel 15 Gm Gel..Gram.) 15 gm PO Q15M PRN; Protocol PRN Reason: per Hypoglycemia Standing Ord. Heparin Sodium (Porcine) (Heparin Sodium,Porcine 5,000 Unit/Ml Vial) 5,000 unit SUBCUT Q8H [facility] Last Admin: 05/24/24 17:08 Dose: 5,000 unit Documented By: YOLIE Hydralazine HCl (Hydralazine Hcl 50 Mg Tablet) 50 mg PO TID [facility]; Protocol Last Admin: 05/28/24 08:23 Dose: 50 mg Documented By: LORETTA Hydromorphone HCl (Hydromorphone Hcl 0.5 Mg/0.5 Ml Syringe) 0.5 mg IVPUSH Q4H PRN; Protocol PRN Reason: Pain, Severe (Pain Scale 7-10) Last Admin: 05/22/24 09:36 Dose: 0.5 mg Documented By: BRITTNEY Insulin Human Lispro (Insulin Lispro 100 Unit/Ml 3 Ml Vial) 0 unit SUBCUT QIDACHS [facility]; Protocol Last Admin: 05/28/24 07:13 Dose: Not Given Documented By: LORETTA Non-Admin Reason: No Insulin Coverage Lidocaine (Lidocaine 4 % Patch Adh..Patch) 1 patch TRANSDERMA DAILY [facility]; Protocol Last Admin: 05/28/24 08:17 Dose: 1 patch Documented By: LORETTA Lidocaine HCl (Lidocaine 4 % Cream Kit) 1 appl TOPICAL DAILY [facility]; Protocol Last Admin: 05/28/24 08:25 Dose: Not Given Documented By: LORETTA Non-Admin Reason: not avaliable Magnesium Hydroxide (Milk Of Magnesia 30 Ml Oral.Susp) 30 ml PO DAILY PRN PRN Reason: Constipation Melatonin (Melatonin 3 Mg Tablet) 6 mg PO BEDTIME PRN PRN Reason: Insomnia Multivitamins/Vitamin C (Multivitamin Tablet) 1 tab PO DAILY [facility] Last Admin: 05/28/24 08:15 Dose: Not Given Documented By: LORETTA Non-Admin Reason: NPO Non-Formulary Medication (Umeclidinium-Vilanterol [Anoro Ellipta]) 1 inhalation INHALE RDAILY [facility] Last Admin: 05/28/24 07:46 Dose: 1 inhalation Documented By: DIANE Omeprazole (Omeprazole 40 Mg Capsule.Dr) 40 mg PO DAILY@0630 [facility] Last Admin: 05/28/24 05:56 Dose: 40 mg Documented By: GILBERT Ondansetron HCl (Ondansetron Hcl 4 Mg/2 Ml Vial) 4 mg IVPUSH Q8H PRN PRN Reason: Nausea and Vomiting Last Admin: 05/23/24 07:53 Dose: 4 mg Documented By: YOLIE Simethicone (Simethicone 80 Mg Tab.Chew) 80 mg PO QIDWMHS PRN PRN Reason: bloating Sodium Chloride (0.9 % Sodium Chloride Flush 3 Ml Syringe) 3 ml IVFLUSH QSHIFT [facility] Last Admin: 05/28/24 08:14 Dose: 3 ml Documented By: LORETTA Tamsulosin HCl (Tamsulosin Hcl 0.4 Mg Capsule) 0.8 mg PO BEDTIME [facility] Last Admin: 05/27/24 20:41 Dose: 0.8 mg Documented By: LYSZ Labs 05/26/24 05:42 05/28/24 08:09 Labs: Laboratory Results - last 24 hr 05/27/24 05/27/24 05/27/24 11:16 16:27 19:36 Anion Gap Estim Creat Clear Calc Estimated GFR POC Glucose 141 H 181 H 156 H Random Glucose Calcium 05/28/24 05/28/24 07:05 08:09 Anion Gap 17 Estim Creat Clear Calc 12.0 Estimated GFR 7 POC Glucose 122 H Random Glucose 120 H Calcium 8.9 Assessment and Plan (1) ESRD needing dialysis: Status: Acute (2) Uncontrolled hypertension: Status: Acute (3) Non-insulin dependent type 2 diabetes mellitus: Status: Acute Plan 59-year-old male with diabetes, hypertension, hyperlipidemia, presented with some abdominal discomfort nausea vomiting diarrhea, cough with pleuritic chest pain and is found to have acute Kidney Injury, proctitis and bronchitis Acute renal failure with acute metabolic acidosis requiring acute hemodialysis multifactorial in nature, HTN, DM, unclear other factors; pending work up CT abd:There is moderate right renal atrophy in comparison with the left. No calculi or hydronephrosis. UA-has protein ,glucouria, large3+ blood, rbc >20, wbc 11-20,Leukocyte estrase +,bacteruria 4+. urine protein >2000,urine hepatitis serologies negative (Hep B immune). +ve HSV I&II IgG LIANG ,c3,c4 pending, change temp cath to perm needs renal biopsy -- inpt vs outp (will d/w IR to see if able to do tomorrow) Uncontrolled Hypertension hydralazine 50; increase norvasc to [address] reported abnormal findings suggestive of proctatitis, no clinical finding to suggest it DC IV Abx, symptomatic measures ID input appreciated Added lidocaine patch. continue bowel regimen Bronchitis breathing treatment Diabetes hold metfromin and give sliding scvale insulin, diabetic diet Hyperlipidemia statin dvt prophylaxis s/c heparin ongoing need for stay- acute kidney injury not resolved yet, needs HD Quality Stroke Does the patient have a stroke diagnosis?: No VTE Prior VTE?: No VTE Risk Level:: Medical - moderate - high VTE Device Contraindication: Treatment Not Indicated VTE Drug Contraindication: N/A - Med Ordered
[2024-05-28 11:15] LABS: Glucose, Whole Blood 120 mg/dL (60-115)
[2024-05-28] MEDS: ceFAZolin Sodium/Dextrose,Iso 2 GM/50 ML PIGGYBACK IV (11:45)
[2024-05-28] MEDS: fentaNYL citrate/PF 100 MCG/2 ML VIAL 50 MCG IVPUSH (12:07)
[2024-05-28] MEDS: fentaNYL citrate/PF 100 MCG/2 ML VIAL 25 MCG IVPUSH (12:18)
--- NOTE | 2024-05-28 12:45 | PM.PROC ---
Brief Operative Note Date of procedure: 05/28/24 Pre-op diagnosis: Needs long term care administrator access for HD Post-op diagnosis: same Procedure: Right IJ 23 cm Permacath placed using US and FL. Tip at cavoatrial junction. Ok for use. Right IJ Javier removed.
[2024-05-28] MEDS: Acetaminophen 325 MG TABLET 975 MG PO (15:11)
[2024-05-28] MEDS: HYDROmorphone HCl 0.5 MG/0.5 ML SYRINGE IVPUSH ×2 (15:12→20:32)
[2024-05-28 16:03] LABS: Glucose, Whole Blood 289 mg/dL (60-115)
[2024-05-28] MEDS: Insulin Lispro 100 UNIT/ML 3 ML VIAL SUBCUT (16:04)
[2024-05-28 20:26] LABS: Glucose, Whole Blood 87 mg/dL (60-115)
[2024-05-28] MEDS: Tamsulosin HCL 0.4 MG CAPSULE 0.8 MG PO (20:33)
--- NOTE | 2024-05-28 20:49 | P.PNNP_ITS ---
Subjective Subjective Date of Service: 05/28/24 Interval history: seen and examined no new complaints s/p Permcath today Physical Exam 2 Vital Signs: Vital Signs: Last Vital Signs Temp 99.1 F 05/28/24 19:45 Pulse 105 H 05/28/24 19:45 Resp 16 05/28/24 19:45 BP 160/78 H 05/28/24 19:45 Pulse Ox 96 05/28/24 19:45 O2 Del Method Room Air 05/28/24 19:45 BMI result Body Mass Index 28.9 Const: Other: General - no acute distress, appears comfortable Cardiovascular - regular rate and rhythm, S1-S2 Lungs - normal respiratory effort, clear to auscultation bilaterally, no wheezing Abdomen - soft, nontender, no rebound or guarding Extremities - no edema bilaterally Neuro - awake and alert, no focal deficits Objective Data Labs 05/26/24 05:42 05/29/24 13:48 Labs: Laboratory Results - last 24 hr 05/28/24 05/28/24 05/28/24 07:05 08:09 11:11 Sodium 138 Potassium 4.0 Chloride 102 Carbon Dioxide 23 Anion Gap 17 BUN 41 H Creatinine 7.50 H* Estim Creat Clear Calc 12.0 Estimated GFR 7 POC Glucose 122 H 120 H Random Glucose 120 H Calcium 8.9 05/28/24 05/28/24 15:59 19:48 Sodium Potassium Chloride Carbon Dioxide Anion Gap BUN Creatinine Estim Creat Clear Calc Estimated GFR POC Glucose 289 H 87 Random Glucose Calcium Microbiology Microbiology Results: Microbiology 05/19/24 17:44 Blood - Venous Blood Culture - Final No growth after 5 days. 05/19/24 17:23 Blood - Venous Blood Culture - Final No growth after 5 days. 05/22/24 Unknown Urine Catheterized - Straight Catheter Urine Culture - Final No growth. Procedures Date of Service Date of Service: 06/01/24 Assessment & Plan Assessment and plan (1) RAMONITA (acute kidney injury): Status: Acute Plan RAMONITA Different diagnosis includes ATN/acute glomerular nephritis. Currently anuric. No overt signs or symptoms of uremia. Significant hypertension Plan HD yesterday. REcheck creatinine and decide on HD Workup for a GN under way. Significant nephrotic range proteinuria Await kidney biopsy Time Spent With Patient Time: Total time managing care of this patient today ____ minutes. Progress Note: Quality Stroke Does the patient have a stroke diagnosis?: No
[2024-05-29 03:50] VITALS: BP 160/71; PULSE 96; RESP 18; TEMP 36.7; O2SAT 96
[2024-05-29] MEDS: HYDROmorphone HCl 0.5 MG/0.5 ML SYRINGE IVPUSH ×2 (04:31→22:01)
[2024-05-29] MEDS: Omeprazole 40 MG CAPSULE.DR PO (06:31)
[2024-05-29 07:08] VITALS: BP 173/78; PULSE 92; RESP 16; TEMP 36.9; O2SAT 97
[2024-05-29] MEDS: Acetaminophen 325 MG TABLET 975 MG PO ×2 (07:35→21:55)
[2024-05-29] MEDS: Multivitamin TABLET 1 TAB PO (07:36)
[2024-05-29] MEDS: 0.9 % Sodium Chloride Flush 3 ML SYRINGE IVFLUSH ×2 (07:36→22:02)
[2024-05-29] MEDS: hydrALAZINE HCl 50 MG TABLET PO ×2 (07:36→21:55)
[2024-05-29] MEDS: amLODIPine Besylate 10 MG TABLET PO (07:36)
[2024-05-29] MEDS: Lidocaine 4 % Patch ADH..PATCH 1 PATCH TRANSDERMA (07:36)
[2024-05-29 08:44] VITALS: PULSE 92; RESP 16
--- NOTE | 2024-05-29 09:48 | P.PNIM_ITS ---
Subjective Subjective Date of Service: 05/29/24 Interval History: seen and examined no complaints Review of Systems Negative except HPI/interval history. Physical Exam 2 Vital Signs: Vital Signs: Last Vital Signs Temp 98.5 F 05/29/24 07:08 Pulse 92 05/29/24 08:44 Resp 16 05/29/24 08:44 BP 173/78 H 05/29/24 07:08 Pulse Ox 97 05/29/24 07:08 O2 Del Method Room Air 05/29/24 07:08 BMI result Body Mass Index 28.9 Const: Other: General - no acute distress, appears comfortable Cardiovascular - regular rate and rhythm, S1-S2 Lungs - normal respiratory effort, clear to auscultation bilaterally, no wheezing Abdomen - soft, nontender, no rebound or guarding Extremities - no edema bilaterally Neuro - awake and alert, no focal deficits Objective Data Active Medications Acetaminophen (Acetaminophen 325 Mg Tablet) 975 mg PO Q6H [facility] Last Admin: 05/29/24 07:35 Dose: 975 mg Documented By: LORETTA Al Hydroxide/Mg Hydroxide (Magnesium Hydrox/Alum Hydrox 30 Ml Oral.Susp) 30 ml PO Q4H PRN PRN Reason: Heartburn Amlodipine Besylate (Amlodipine Besylate 10 Mg Tablet) 10 mg PO DAILY [facility]; Protocol Last Admin: 05/29/24 07:36 Dose: 10 mg Documented By: LORETTA Aspirin (Aspirin 81 Mg Tab.Chew) 81 mg PO DAILY [facility] Last Admin: 05/24/24 08:43 Dose: 81 mg Documented By: YOLIE Atorvastatin Calcium (Atorvastatin Calcium 80 Mg Tablet) 80 mg PO DAILY [facility] Last Admin: 05/21/24 10:12 Dose: Not Given Documented By: BRITTNEY Non-Admin Reason: Physician Held Med Calcium Carbonate (Calcium Carbonate 750 Mg Tab.Chew) 750 mg PO Q4H PRN PRN Reason: Heartburn Dextrose (Dextrose 50 % 25 Gm/50 Ml Syringe) 25 gm IVPUSH Q15M PRN PRN Reason: HYPOGLYCEMIA STANDING PROTOCOL Glucose (Glucose Gel 15 Gm Gel..Gram.) 15 gm PO Q15M PRN; Protocol PRN Reason: per Hypoglycemia Standing Ord. Heparin Sodium (Porcine) (Heparin Sodium,Porcine 5,000 Unit/Ml Vial) 5,000 unit SUBCUT Q8H [facility] Last Admin: 05/24/24 17:08 Dose: 5,000 unit Documented By: YOLIE Hydralazine HCl (Hydralazine Hcl 50 Mg Tablet) 50 mg PO TID [facility]; Protocol Last Admin: 05/29/24 07:36 Dose: 50 mg Documented By: LORETTA Hydromorphone HCl (Hydromorphone Hcl 0.5 Mg/0.5 Ml Syringe) 0.5 mg IVPUSH Q4H PRN; Protocol PRN Reason: Pain, Severe (Pain Scale 7-10) Last Admin: 05/29/24 04:31 Dose: 0.5 mg Documented By: GILBERT Insulin Human Lispro (Insulin Lispro 100 Unit/Ml 3 Ml Vial) 0 unit SUBCUT QIDACHS [facility]; Protocol Last Admin: 05/29/24 07:35 Dose: Not Given Documented By: LORETTA Non-Admin Reason: No Insulin Coverage Lidocaine (Lidocaine 4 % Patch Adh..Patch) 1 patch TRANSDERMA DAILY [facility]; Protocol Last Admin: 05/29/24 07:36 Dose: 1 patch Documented By: LORETTA Lidocaine HCl (Lidocaine 4 % Cream Kit) 1 appl TOPICAL DAILY [facility]; Protocol Last Admin: 05/29/24 07:40 Dose: Not Given Documented By: LORETTA Non-Admin Reason: Med Not Available Magnesium Hydroxide (Milk Of Magnesia 30 Ml Oral.Susp) 30 ml PO DAILY PRN PRN Reason: Constipation Melatonin (Melatonin 3 Mg Tablet) 6 mg PO BEDTIME PRN PRN Reason: Insomnia Multivitamins/Vitamin C (Multivitamin Tablet) 1 tab PO DAILY [facility] Last Admin: 05/29/24 07:36 Dose: 1 tab Documented By: LORETTA Non-Formulary Medication (Umeclidinium-Vilanterol [Anoro Ellipta]) 1 inhalation INHALE RDAILY [facility] Last Admin: 05/29/24 08:42 Dose: 1 inhalation Documented By: KARELY Omeprazole (Omeprazole 40 Mg Capsule.Dr) 40 mg PO DAILY@0630 [facility] Last Admin: 05/29/24 06:31 Dose: 40 mg Documented By: GILBERT Ondansetron HCl (Ondansetron Hcl 4 Mg/2 Ml Vial) 4 mg IVPUSH Q8H PRN PRN Reason: Nausea and Vomiting Last Admin: 05/23/24 07:53 Dose: 4 mg Documented By: YOLIE Simethicone (Simethicone 80 Mg Tab.Chew) 80 mg PO QIDWMHS PRN PRN Reason: bloating Sodium Chloride (0.9 % Sodium Chloride Flush 3 Ml Syringe) 3 ml IVFLUSH QSHIFT [facility] Last Admin: 05/29/24 07:36 Dose: 3 ml Documented By: LORETTA Tamsulosin HCl (Tamsulosin Hcl 0.4 Mg Capsule) 0.8 mg PO BEDTIME [facility] Last Admin: 05/28/24 20:33 Dose: 0.8 mg Documented By: LYSZ Labs 05/26/24 05:42 05/28/24 08:09 Labs: Laboratory Results - last 24 hr 05/28/24 05/28/24 05/28/24 11:11 15:59 19:48 POC Glucose 120 H 289 H 87 Assessment and Plan (1) ESRD needing dialysis: Status: Acute (2) Uncontrolled hypertension: Status: Acute (3) Non-insulin dependent type 2 diabetes mellitus: Status: Acute Plan 59-year-old male with diabetes, hypertension, hyperlipidemia, presented with some abdominal discomfort nausea vomiting diarrhea, cough with pleuritic chest pain and is found to have acute Kidney Injury, proctitis and bronchitis Acute renal failure with acute metabolic acidosis requiring acute hemodialysis multifactorial in nature, HTN, DM, unclear other factors; pending work up CT abd:There is moderate right renal atrophy in comparison with the left. No calculi or hydronephrosis. UA-has protein ,glucouria, large3+ blood, rbc >20, wbc 11-20,Leukocyte estrase +,bacteruria 4+. urine protein >2000,urine hepatitis serologies negative (Hep B immune). +ve HSV I&II IgG LIANG ,c3,c4 pending, perm cath in place; eventual renal biopsy (can be outpt if pt discharged) Uncontrolled Hypertension better controlled on current regime Constipation CT reported abnormal findings suggestive of proctatitis, no clinical finding to suggest it DC IV Abx, symptomatic measures ID input appreciated Added lidocaine patch. continue bowel regimen Bronchitis breathing treatment Diabetes hold metfromin and give sliding scvale insulin, diabetic diet Hyperlipidemia statin dvt prophylaxis s/c heparin ongoing need for stay- needs HD arrangement as outpt Quality Stroke Does the patient have a stroke diagnosis?: No VTE Prior VTE?: No VTE Risk Level:: Medical - moderate - high VTE Device Contraindication: Treatment Not Indicated VTE Drug Contraindication: N/A - Med Ordered
[2024-05-29 10:55] LABS: Glucose, Whole Blood 122 mg/dL (60-115)
[2024-05-29] MEDS: Insulin Lispro 100 UNIT/ML 3 ML VIAL SUBCUT (12:18)
[2024-05-29 12:19] LABS: Glucose, Whole Blood 233 mg/dL (60-115)
--- NOTE | 2024-05-29 12:30 | MHC.CM.PN ---
PER ROUNDS DC PLAN IS HOME ONCE DIALYSIS CHSIR IS FOUND
[2024-05-29 14:23] LABS: Anion Gap 19 (12-20); Blood Urea Nitrogen 60 mg/dL (9-16); Calcium 8.9 mg/dL (8.4-10.2); Carbon Dioxide 20 mmol/L (22-29); Chloride 103 mmol/L (96-108); Creatinine Clr Calc Pharmacy 10.9; Estimated Glomerular Filt Rate 7; Glucose Random 128 mg/dL (60-115); Potassium 4.1 mmol/L (3.3-5.1); Sodium 138 mmol/L (135-145)
[2024-05-29 19:00] VITALS: BP 170/80; PULSE 125; RESP 18; TEMP 36.7; O2SAT 96
[2024-05-29 19:03] LABS: Glucose, Whole Blood 148 mg/dL (60-115)
[2024-05-29] MEDS: Tamsulosin HCL 0.4 MG CAPSULE 0.8 MG PO (21:57)
[2024-05-30 03:14] VITALS: BP 163/78; PULSE 110; RESP 17; TEMP 37.1; O2SAT 96
[2024-05-30] MEDS: Omeprazole 40 MG CAPSULE.DR PO (06:23)
[2024-05-30 07:41] LABS: Glucose, Whole Blood 131 mg/dL (60-115)
[2024-05-30 07:50] VITALS: PULSE 109; RESP 18; O2SAT 95
[2024-05-30 08:00] VITALS: BP 169/84; PULSE 112; RESP 18; TEMP 37.2; O2SAT 95
--- NOTE | 2024-05-30 08:15 | P.PNIM_ITS ---
Subjective Subjective Date of Service: 05/30/24 Interval History: seen and examined had dialysis yesterday no complaints this AM sig. other bedside,updates given Physical Exam 2 Vital Signs: Vital Signs: Last Vital Signs Temp 98.9 F 05/30/24 08:00 Pulse 112 H 05/30/24 08:00 Resp 18 05/30/24 08:00 BP 169/84 H 05/30/24 08:00 Pulse Ox 95 05/30/24 08:00 O2 Del Method Room Air 05/30/24 08:00 BMI result Body Mass Index 28.9 Const: Other: General - no acute distress, appears comfortable Cardiovascular - regular rate and rhythm, S1-S2 Lungs - normal respiratory effort, clear to auscultation bilaterally, no wheezing Abdomen - soft, nontender, no rebound or guarding Extremities - no edema bilaterally Neuro - awake and alert, no focal deficits Objective Data Active Medications Acetaminophen (Acetaminophen 325 Mg Tablet) 975 mg PO Q6H [facility] Last Admin: 05/30/24 02:13 Dose: Not Given Documented By: CARLOS Non-Admin Reason: Patient Refused Al Hydroxide/Mg Hydroxide (Magnesium Hydrox/Alum Hydrox 30 Ml Oral.Susp) 30 ml PO Q4H PRN PRN Reason: Heartburn Amlodipine Besylate (Amlodipine Besylate 10 Mg Tablet) 10 mg PO DAILY [facility]; Protocol Last Admin: 05/29/24 07:36 Dose: 10 mg Documented By: LORETTA Aspirin (Aspirin 81 Mg Tab.Chew) 81 mg PO DAILY [facility] Last Admin: 05/24/24 08:43 Dose: 81 mg Documented By: YOLIE Atorvastatin Calcium (Atorvastatin Calcium 80 Mg Tablet) 80 mg PO DAILY [facility] Last Admin: 05/21/24 10:12 Dose: Not Given Documented By: BRITTNEY Non-Admin Reason: Physician Held Med Calcium Carbonate (Calcium Carbonate 750 Mg Tab.Chew) 750 mg PO Q4H PRN PRN Reason: Heartburn Dextrose (Dextrose 50 % 25 Gm/50 Ml Syringe) 25 gm IVPUSH Q15M PRN PRN Reason: HYPOGLYCEMIA STANDING PROTOCOL Glucose (Glucose Gel 15 Gm Gel..Gram.) 15 gm PO Q15M PRN; Protocol PRN Reason: per Hypoglycemia Standing Ord. Heparin Sodium (Porcine) (Heparin Sodium,Porcine 5,000 Unit/Ml Vial) 5,000 unit SUBCUT Q8H [facility] Last Admin: 05/24/24 17:08 Dose: 5,000 unit Documented By: YOLIE Hydralazine HCl (Hydralazine Hcl 50 Mg Tablet) 50 mg PO TID [facility]; Protocol Last Admin: 05/29/24 21:55 Dose: 50 mg Documented By: CARLOS Hydromorphone HCl (Hydromorphone Hcl 0.5 Mg/0.5 Ml Syringe) 0.5 mg IVPUSH Q4H PRN; Protocol PRN Reason: Pain, Severe (Pain Scale 7-10) Last Admin: 05/29/24 22:01 Dose: 0.5 mg Documented By: CARLOS Insulin Human Lispro (Insulin Lispro 100 Unit/Ml 3 Ml Vial) 0 unit SUBCUT QIDACHS [facility]; Protocol Last Admin: 05/29/24 21:53 Dose: Not Given Documented By: CARLOS Non-Admin Reason: No Insulin Coverage Lidocaine (Lidocaine 4 % Patch Adh..Patch) 1 patch TRANSDERMA DAILY [facility]; Protocol Last Admin: 05/29/24 07:36 Dose: 1 patch Documented By: LORETTA Lidocaine HCl (Lidocaine 4 % Cream Kit) 1 appl TOPICAL DAILY [facility]; Protocol Last Admin: 05/29/24 07:40 Dose: Not Given Documented By: LORETTA Non-Admin Reason: Med Not Available Magnesium Hydroxide (Milk Of Magnesia 30 Ml Oral.Susp) 30 ml PO DAILY PRN PRN Reason: Constipation Melatonin (Melatonin 3 Mg Tablet) 6 mg PO BEDTIME PRN PRN Reason: Insomnia Multivitamins/Vitamin C (Multivitamin Tablet) 1 tab PO DAILY [facility] Last Admin: 05/29/24 07:36 Dose: 1 tab Documented By: LORETTA Non-Formulary Medication (Umeclidinium-Vilanterol [Anoro Ellipta]) 1 inhalation INHALE RDAILY [facility] Last Admin: 05/30/24 07:49 Dose: 1 inhalation Documented By: DIANE Comments: computer not working Omeprazole (Omeprazole 40 Mg Capsule.) 40 mg PO DAILY@0630 [facility] Last Admin: 05/30/24 06:23 Dose: 40 mg Documented By: ROMEL Ondansetron HCl (Ondansetron Hcl 4 Mg/2 Ml Vial) 4 mg IVPUSH Q8H PRN PRN Reason: Nausea and Vomiting Last Admin: 05/23/24 07:53 Dose: 4 mg Documented By: YOLIE Simethicone (Simethicone 80 Mg Tab.Chew) 80 mg PO QIDWMHS PRN PRN Reason: bloating Sodium Chloride (0.9 % Sodium Chloride Flush 3 Ml Syringe) 3 ml IVFLUSH QSHIFT [facility] Last Admin: 05/29/24 22:02 Dose: 3 ml Documented By: CARLOS Tamsulosin HCl (Tamsulosin Hcl 0.4 Mg Capsule) 0.8 mg PO BEDTIME [facility] Last Admin: 05/29/24 21:57 Dose: 0.8 mg Documented By: CARLOS Labs 05/26/24 05:42 05/29/24 13:48 Labs: Laboratory Results - last 24 hr 05/29/24 05/29/24 05/29/24 07:12 11:13 13:48 Anion Gap 19 Estim Creat Clear Calc 10.9 Estimated GFR 7 POC Glucose 122 H 233 H Random Glucose 128 H Calcium 8.9 05/29/24 05/30/24 18:53 07:38 Anion Gap Estim Creat Clear Calc Estimated GFR POC Glucose 148 H 131 H Random Glucose Calcium Assessment and Plan (1) ESRD needing dialysis: Status: Acute (2) Uncontrolled hypertension: Status: Acute (3) Non-insulin dependent type 2 diabetes mellitus: Status: Acute Plan 59-year-old male with diabetes, hypertension, hyperlipidemia, presented with some abdominal discomfort nausea vomiting diarrhea, cough with pleuritic chest pain and is found to have acute Kidney Injury, proctitis and bronchitis Acute renal failure with acute metabolic acidosis requiring acute hemodialysis multifactorial in nature, HTN, DM, unclear other factors; pending work up CT abd:There is moderate right renal atrophy in comparison with the left. No calculi or hydronephrosis. UA-has protein ,glucouria, large3+ blood, rbc >20, wbc 11-20,Leukocyte estrase +,bacteruria 4+. urine protein >2000,urine hepatitis serologies negative (Hep B immune). +ve HSV I&II IgG LIANG ,c3,c4 pending, perm cath in place; eventual renal biopsy (can be outpt if pt discharged) to d/w renal -- ? outpt dialysis chair Uncontrolled Hypertension better controlled on current regime Constipation CT reported abnormal findings suggestive of proctatitis, no clinical finding to suggest it DC IV Abx, symptomatic measures ID input appreciated Added lidocaine patch. continue bowel regimen Bronchitis breathing treatment Diabetes hold metfromin and give sliding scvale insulin, diabetic diet Hyperlipidemia statin dvt prophylaxis s/c heparin ongoing need for stay- needs HD arrangement as outpt Quality Stroke Does the patient have a stroke diagnosis?: No VTE Prior VTE?: No VTE Risk Level:: Medical - moderate - high VTE Device Contraindication: Treatment Not Indicated VTE Drug Contraindication: N/A - Med Ordered
[2024-05-30] MEDS: Lidocaine 4 % Patch ADH..PATCH 1 PATCH TRANSDERMA (08:25)
[2024-05-30] MEDS: 0.9 % Sodium Chloride Flush 3 ML SYRINGE IVFLUSH ×3 (08:27→22:13)
[2024-05-30] MEDS: amLODIPine Besylate 10 MG TABLET PO (08:28)
[2024-05-30] MEDS: hydrALAZINE HCl 50 MG TABLET PO ×3 (08:28→22:11)
[2024-05-30] MEDS: Multivitamin TABLET 1 TAB PO (08:28)
[2024-05-30 11:08] LABS: Glucose, Whole Blood 127 mg/dL (60-115)
[2024-05-30 15:45] VITALS: BP 166/79; PULSE 109; RESP 17; TEMP 37.4; O2SAT 96
[2024-05-30 16:33] LABS: Glucose, Whole Blood 195 mg/dL (60-115)
[2024-05-30] MEDS: Insulin Lispro 100 UNIT/ML 3 ML VIAL SUBCUT (16:53)
[2024-05-30 20:00] VITALS: BP 166/78; PULSE 111; RESP 16; TEMP 37.2; O2SAT 96
[2024-05-30 21:08] LABS: Glucose, Whole Blood 143 mg/dL (60-115)
[2024-05-30] MEDS: Acetaminophen 325 MG TABLET 975 MG PO (22:11)
[2024-05-30] MEDS: Tamsulosin HCL 0.4 MG CAPSULE 0.8 MG PO (22:11)
[2024-05-31 04:00] VITALS: BP 162/76; PULSE 92; RESP 17; TEMP 37.1; O2SAT 97
[2024-05-31] MEDS: Omeprazole 40 MG CAPSULE.DR PO (06:32)
[2024-05-31 07:30] LABS: Glucose, Whole Blood 117 mg/dL (60-115)
[2024-05-31 08:00] VITALS: BP 190/80; PULSE 100; RESP 17; TEMP 36.8; O2SAT 97
--- NOTE | 2024-05-31 08:05 | PC.RT ---
patient refused to rinse and spit after treatment. re-educated on importance of rinse and possible side effect of thrush. patient states I'm good.
[2024-05-31 08:08] VITALS: PULSE 92; RESP 18; O2SAT 97
[2024-05-31] MEDS: Lidocaine 4 % Patch ADH..PATCH 1 PATCH TRANSDERMA (08:08)
[2024-05-31] MEDS: Multivitamin TABLET 1 TAB PO (08:09)
[2024-05-31] MEDS: amLODIPine Besylate 10 MG TABLET PO (08:09)
[2024-05-31] MEDS: hydrALAZINE HCl 50 MG TABLET PO ×3 (08:09→20:12)
[2024-05-31] MEDS: 0.9 % Sodium Chloride Flush 3 ML SYRINGE IVFLUSH ×3 (08:11→20:14)
--- NOTE | 2024-05-31 09:12 | HO.PM.IMPN ---
Subjective Subjective Date of Service: 05/31/24 Interval History: no complaints Physical Exam Vital Signs: Vital Signs: Last Vital Signs Temp 98.3 F 05/31/24 08:00 Pulse 92 05/31/24 08:08 Resp 18 05/31/24 08:08 BP 190/80 H 05/31/24 08:00 Pulse Ox 97 05/31/24 08:00 O2 Del Method Room Air 05/31/24 08:00 BMI result Body Mass Index 28.9 Const: Other: General - no acute distress, appears comfortable Cardiovascular - regular rate and rhythm, S1-S2 Lungs - normal respiratory effort, clear to auscultation bilaterally, no wheezing Abdomen - soft, nontender, no rebound or guarding Extremities - no edema bilaterally Neuro - awake and alert, no focal deficits Objective Data Active Medications Acetaminophen (Acetaminophen 325 Mg Tablet) 975 mg PO Q6H [facility] Last Admin: 05/31/24 08:33 Dose: Not Given Documented By: GLORIA Non-Admin Reason: Patient Refused Al Hydroxide/Mg Hydroxide (Magnesium Hydrox/Alum Hydrox 30 Ml Oral.Susp) 30 ml PO Q4H PRN PRN Reason: Heartburn Amlodipine Besylate (Amlodipine Besylate 10 Mg Tablet) 10 mg PO DAILY [facility]; Protocol Last Admin: 05/31/24 08:09 Dose: 10 mg Documented By: GLORIA Aspirin (Aspirin 81 Mg Tab.Chew) 81 mg PO DAILY [facility] Last Admin: 05/24/24 08:43 Dose: 81 mg Documented By: YOLIE Atorvastatin Calcium (Atorvastatin Calcium 80 Mg Tablet) 80 mg PO DAILY [facility] Last Admin: 05/21/24 10:12 Dose: Not Given Documented By: BRITTNEY Non-Admin Reason: Physician Held Med Calcium Carbonate (Calcium Carbonate 750 Mg Tab.Chew) 750 mg PO Q4H PRN PRN Reason: Heartburn Dextrose (Dextrose 50 % 25 Gm/50 Ml Syringe) 25 gm IVPUSH Q15M PRN PRN Reason: HYPOGLYCEMIA STANDING PROTOCOL Glucose (Glucose Gel 15 Gm Gel..Gram.) 15 gm PO Q15M PRN; Protocol PRN Reason: per Hypoglycemia Standing Ord. Heparin Sodium (Porcine) (Heparin Sodium,Porcine 5,000 Unit/Ml Vial) 5,000 unit SUBCUT Q8H [facility] Last Admin: 05/24/24 17:08 Dose: 5,000 unit Documented By: YOLIE Hydralazine HCl (Hydralazine Hcl 50 Mg Tablet) 50 mg PO TID [facility]; Protocol Last Admin: 05/31/24 08:09 Dose: 50 mg Documented By: GLORIA Insulin Human Lispro (Insulin Lispro 100 Unit/Ml 3 Ml Vial) 0 unit SUBCUT QIDACHS [facility]; Protocol Last Admin: 05/31/24 07:34 Dose: Not Given Documented By: GLORIA Non-Admin Reason: No Insulin Coverage Lidocaine (Lidocaine 4 % Patch Adh..Patch) 1 patch TRANSDERMA DAILY [facility]; Protocol Last Admin: 05/31/24 08:08 Dose: 1 patch Documented By: GLORIA Lidocaine HCl (Lidocaine 4 % Cream Kit) 1 appl TOPICAL DAILY [facility]; Protocol Last Admin: 05/31/24 08:33 Dose: Not Given Documented By: GLORIA Non-Admin Reason: given on dialysis days Magnesium Hydroxide (Milk Of Magnesia 30 Ml Oral.Susp) 30 ml PO DAILY PRN PRN Reason: Constipation Melatonin (Melatonin 3 Mg Tablet) 6 mg PO BEDTIME PRN PRN Reason: Insomnia Multivitamins/Vitamin C (Multivitamin Tablet) 1 tab PO DAILY [facility] Last Admin: 05/31/24 08:09 Dose: 1 tab Documented By: GLORIA Non-Formulary Medication (Umeclidinium-Vilanterol [Anoro Ellipta]) 1 inhalation INHALE RDAILY [facility] Last Admin: 05/31/24 08:05 Dose: 1 inhalation Documented By: DIANE Omeprazole (Omeprazole 40 Mg Capsule.) 40 mg PO DAILY@0630 [facility] Last Admin: 05/31/24 06:32 Dose: 40 mg Documented By: CARLOS Ondansetron HCl (Ondansetron Hcl 4 Mg/2 Ml Vial) 4 mg IVPUSH Q8H PRN PRN Reason: Nausea and Vomiting Last Admin: 05/23/24 07:53 Dose: 4 mg Documented By: YOLIE Simethicone (Simethicone 80 Mg Tab.Chew) 80 mg PO QIDWMHS PRN PRN Reason: bloating Sodium Chloride (0.9 % Sodium Chloride Flush 3 Ml Syringe) 3 ml IVFLUSH QSHIFT [facility] Last Admin: 05/31/24 08:11 Dose: 3 ml Documented By: GLORIA Tamsulosin HCl (Tamsulosin Hcl 0.4 Mg Capsule) 0.8 mg PO BEDTIME [facility] Last Admin: 05/30/24 22:11 Dose: 0.8 mg Documented By: CARLOS Labs 05/26/24 05:42 05/29/24 13:48 Labs: Laboratory Results - last 24 hr 05/30/24 05/30/24 05/30/24 11:05 16:30 21:01 POC Glucose 127 H 195 H 143 H 05/31/24 07:23 POC Glucose 117 H Assessment and Plan (1) ESRD needing dialysis: Status: Acute (2) Uncontrolled hypertension: Status: Acute (3) Non-insulin dependent type 2 diabetes mellitus: Status: Acute Plan 59M PMH diabetes, hypertension, hyperlipidemia, presented with some abdominal discomfort nausea vomiting diarrhea, cough with pleuritic chest pain and found to have acute Kidney Injury, proctitis and bronchitis Acute renal failure with acute metabolic acidosis requiring acute hemodialysis multifactorial in nature, HTN, DM, unclear other factors; pending work up CT abd:There is moderate right renal atrophy in comparison with the left. No calculi or hydronephrosis. UA-has protein ,glucouria, large3+ blood, rbc >20, wbc 11-20,Leukocyte estrase +,bacteruria 4+. urine protein >2000,urine hepatitis serologies negative (Hep B immune). +ve HSV I&II IgG LIANG ,c3,c4 pending, perm cath in place; eventual renal biopsy (can be outpt if pt discharged) to d/w renal -- ? outpt dialysis chair Uncontrolled Hypertension better controlled on current regime - hydralazine 50 mg t.i.d. and amlodipine [address] reported abnormal findings suggestive of proctatitis, no clinical finding to suggest it DC IV Abx, symptomatic measures ID input appreciated Added lidocaine patch. continue bowel regimen Bronchitis breathing treatment Diabetes hold metfromin and give sliding scale insulin, diabetic diet Hyperlipidemia statin dvt prophylaxis s/c heparin ongoing need for stay- needs HD arrangement as outpt Quality Stroke Does the patient have a stroke diagnosis?: No VTE Prior VTE?: No VTE Risk Level:: Medical - moderate - high VTE Device Contraindication: Treatment Not Indicated VTE Drug Contraindication: N/A - Med Ordered
[2024-05-31 11:45] LABS: Glucose, Whole Blood 109 mg/dL (60-115)
[2024-05-31 15:15] VITALS: BP 152/73; PULSE 90; RESP 18; TEMP 37; O2SAT 95
[2024-05-31 16:41] LABS: Glucose, Whole Blood 193 mg/dL (60-115)
[2024-05-31] MEDS: Insulin Lispro 100 UNIT/ML 3 ML VIAL SUBCUT ×2 (17:05→20:12)
[2024-05-31 19:52] VITALS: BP 161/77; PULSE 89; RESP 20; TEMP 37.2; O2SAT 94
[2024-05-31 19:59] LABS: Glucose, Whole Blood 164 mg/dL (60-115)
[2024-05-31] MEDS: Tamsulosin HCL 0.4 MG CAPSULE 0.8 MG PO (20:12)
[2024-05-31] MEDS: Acetaminophen 325 MG TABLET 975 MG PO (20:13)
[2024-06-01 03:19] VITALS: BP 168/78; PULSE 90; RESP 16; TEMP 36.9; O2SAT 97
[2024-06-01] MEDS: Omeprazole 40 MG CAPSULE.DR PO (06:23)
[2024-06-01 07:38] VITALS: BP 163/81; PULSE 98; RESP 18; TEMP 36.8; O2SAT 97
[2024-06-01 07:40] LABS: Glucose, Whole Blood 117 mg/dL (60-115)
[2024-06-01] MEDS: amLODIPine Besylate 10 MG TABLET PO (08:10)
[2024-06-01] MEDS: hydrALAZINE HCl 50 MG TABLET PO ×2 (08:10→20:09)
[2024-06-01] MEDS: Multivitamin TABLET 1 TAB PO (08:10)
[2024-06-01] MEDS: Lidocaine 4 % Patch ADH..PATCH 1 PATCH TRANSDERMA (08:11)
[2024-06-01] MEDS: 0.9 % Sodium Chloride Flush 3 ML SYRINGE IVFLUSH (08:11)
[2024-06-01 08:26] VITALS: PULSE 98; RESP 18; O2SAT 97
--- NOTE | 2024-06-01 08:50 | P.PNNP_ITS ---
Subjective Subjective Date of Service: 06/01/24 Interval history: no complaints Physical Exam 2 Vital Signs: Vital Signs: Last Vital Signs Temp 98.3 F 06/01/24 07:38 Pulse 98 06/01/24 08:26 Resp 18 06/01/24 08:26 BP 163/81 H 06/01/24 07:38 Pulse Ox 97 06/01/24 07:38 O2 Del Method Room Air 06/01/24 07:38 BMI result Body Mass Index 28.9 Const: Other: General - no acute distress, appears comfortable Cardiovascular - regular rate and rhythm, S1-S2 Lungs - normal respiratory effort, clear to auscultation bilaterally, no wheezing Abdomen - soft, nontender, no rebound or guarding Extremities - no edema bilaterally Neuro - awake and alert, no focal deficits Psych: Appearance: grossly normal Objective Data Labs 05/26/24 05:42 05/29/24 13:48 Labs: Laboratory Results - last 24 hr 05/31/24 05/31/24 05/31/24 08:36 11:42 16:37 POC Glucose 109 193 H Blood Type A Positive Antibody Screen NEGATIVE 05/31/24 06/01/24 19:54 07:28 POC Glucose 164 H 117 H Blood Type Antibody Screen Microbiology Microbiology Results: Microbiology 05/19/24 17:44 Blood - Venous Blood Culture - Final No growth after 5 days. 05/19/24 17:23 Blood - Venous Blood Culture - Final No growth after 5 days. 05/22/24 Unknown Urine Catheterized - Straight Catheter Urine Culture - Final No growth. Procedures Date of Service Date of Service: 06/01/24 Assessment & Plan Assessment and plan (1) RAMONITA (acute kidney injury): Status: Acute Plan Renal failure Progressing to ESRD Different diagnosis includes ATN/acute glomerular nephritis. No renal recovery No overt signs or symptoms of uremia. hypertension Plan HD today Workup for a GN under way. Significant nephrotic range proteinuria Await kidney biopsy Awaiting placement for outPt dialysis Time Spent With Patient Time: Total time managing care of this patient today ____ minutes. Progress Note: Quality Stroke Does the patient have a stroke diagnosis?: No
--- NOTE | 2024-06-01 09:11 | P.PNIM_ITS ---
Subjective Subjective Date of Service: 06/01/24 Interval History: no complaints Physical Exam 2 Vital Signs: Vital Signs: Last Vital Signs Temp 98.3 F 06/01/24 07:38 Pulse 98 06/01/24 08:26 Resp 18 06/01/24 08:26 BP 163/81 H 06/01/24 07:38 Pulse Ox 97 06/01/24 07:38 O2 Del Method Room Air 06/01/24 07:38 BMI result Body Mass Index 28.9 Const: Other: General - no acute distress, appears comfortable Cardiovascular - regular rate and rhythm, S1-S2 Lungs - normal respiratory effort, clear to auscultation bilaterally, no wheezing Abdomen - soft, nontender, no rebound or guarding Extremities - no edema bilaterally Neuro - awake and alert, no focal deficits Psych: Appearance: grossly normal Objective Data Active Medications Acetaminophen (Acetaminophen 325 Mg Tablet) 975 mg PO Q6H [facility] Last Admin: 06/01/24 08:12 Dose: Not Given Documented By: GLORIA Non-Admin Reason: Patient Refused Al Hydroxide/Mg Hydroxide (Magnesium Hydrox/Alum Hydrox 30 Ml Oral.Susp) 30 ml PO Q4H PRN PRN Reason: Heartburn Amlodipine Besylate (Amlodipine Besylate 10 Mg Tablet) 10 mg PO DAILY [facility]; Protocol Last Admin: 06/01/24 08:10 Dose: 10 mg Documented By: GLORIA Aspirin (Aspirin 81 Mg Tab.Chew) 81 mg PO DAILY [facility] Last Admin: 05/24/24 08:43 Dose: 81 mg Documented By: YOLIE Atorvastatin Calcium (Atorvastatin Calcium 80 Mg Tablet) 80 mg PO DAILY [facility] Last Admin: 05/21/24 10:12 Dose: Not Given Documented By: BRITTNEY Non-Admin Reason: Physician Held Med Calcium Carbonate (Calcium Carbonate 750 Mg Tab.Chew) 750 mg PO Q4H PRN PRN Reason: Heartburn Dextrose (Dextrose 50 % 25 Gm/50 Ml Syringe) 25 gm IVPUSH Q15M PRN PRN Reason: HYPOGLYCEMIA STANDING PROTOCOL Glucose (Glucose Gel 15 Gm Gel..Gram.) 15 gm PO Q15M PRN; Protocol PRN Reason: per Hypoglycemia Standing Ord. Heparin Sodium (Porcine) (Heparin Sodium,Porcine 5,000 Unit/Ml Vial) 5,000 unit SUBCUT Q8H [facility] Last Admin: 05/24/24 17:08 Dose: 5,000 unit Documented By: YOLIE Hydralazine HCl (Hydralazine Hcl 50 Mg Tablet) 50 mg PO TID [facility]; Protocol Last Admin: 06/01/24 08:10 Dose: 50 mg Documented By: GLORIA Insulin Human Lispro (Insulin Lispro 100 Unit/Ml 3 Ml Vial) 0 unit SUBCUT QIDACHS [facility]; Protocol Last Admin: 06/01/24 08:12 Dose: Not Given Documented By: GLORIA Non-Admin Reason: No Insulin Coverage Lidocaine (Lidocaine 4 % Patch Adh..Patch) 1 patch TRANSDERMA DAILY [facility]; Protocol Last Admin: 06/01/24 08:11 Dose: 1 patch Documented By: GLORIA Lidocaine HCl (Lidocaine 4 % Cream Kit) 1 appl TOPICAL DAILY [facility]; Protocol Last Admin: 05/31/24 08:33 Dose: Not Given Documented By: GLORIA Non-Admin Reason: given on dialysis days Magnesium Hydroxide (Milk Of Magnesia 30 Ml Oral.Susp) 30 ml PO DAILY PRN PRN Reason: Constipation Melatonin (Melatonin 3 Mg Tablet) 6 mg PO BEDTIME PRN PRN Reason: Insomnia Multivitamins/Vitamin C (Multivitamin Tablet) 1 tab PO DAILY [facility] Last Admin: 06/01/24 08:10 Dose: 1 tab Documented By: GLORIA Non-Formulary Medication (Umeclidinium-Vilanterol [Anoro Ellipta]) 1 inhalation INHALE RDAILY [facility] Last Admin: 06/01/24 08:24 Dose: 1 inhalation Documented By: ANANT Omeprazole (Omeprazole 40 Mg Capsule.) 40 mg PO DAILY@0630 [facility] Last Admin: 06/01/24 06:23 Dose: 40 mg Documented By: SELIN-DOMENICZESathish Ondansetron HCl (Ondansetron Hcl 4 Mg/2 Ml Vial) 4 mg IVPUSH Q8H PRN PRN Reason: Nausea and Vomiting Last Admin: 05/23/24 07:53 Dose: 4 mg Documented By: YOLIE Simethicone (Simethicone 80 Mg Tab.Chew) 80 mg PO QIDWMHS PRN PRN Reason: bloating Sodium Chloride (0.9 % Sodium Chloride Flush 3 Ml Syringe) 3 ml IVFLUSH QSHIFT [facility] Last Admin: 06/01/24 08:11 Dose: 3 ml Documented By: GLORIA Tamsulosin HCl (Tamsulosin Hcl 0.4 Mg Capsule) 0.8 mg PO BEDTIME [facility] Last Admin: 05/31/24 20:12 Dose: 0.8 mg Documented By: TESSA Labs 05/26/24 05:42 05/29/24 13:48 Labs: Laboratory Results - last 24 hr 05/31/24 05/31/24 05/31/24 08:36 11:42 16:37 POC Glucose 109 193 H Blood Type A Positive Antibody Screen NEGATIVE 05/31/24 06/01/24 19:54 07:28 POC Glucose 164 H 117 H Blood Type Antibody Screen Assessment and Plan (1) ESRD needing dialysis: Status: Acute (2) Uncontrolled hypertension: Status: Acute (3) Non-insulin dependent type 2 diabetes mellitus: Status: Acute Plan 59M PMH diabetes, hypertension, hyperlipidemia, presented with some abdominal discomfort nausea vomiting diarrhea, cough with pleuritic chest pain and found to have acute Kidney Injury, proctitis and bronchitis Acute renal failure with acute metabolic acidosis requiring acute hemodialysis multifactorial in nature, HTN, DM, unclear other factors; pending work up CT abd:There is moderate right renal atrophy in comparison with the left. No calculi or hydronephrosis. UA-has protein ,glucouria, large3+ blood, rbc >20, wbc 11-20,Leukocyte estrase +,bacteruria 4+. urine protein >2000,urine hepatitis serologies negative (Hep B immune). +ve HSV I&II IgG LIANG ,c3,c4 pending, perm cath in place; eventual renal biopsy (can be outpt if pt discharged) to d/w renal -- ? outpt dialysis chair Uncontrolled Hypertension better controlled on current regime - hydralazine 50 mg t.i.d. and amlodipine [address] reported abnormal findings suggestive of proctatitis, no clinical finding to suggest it DC IV Abx, symptomatic measures ID input appreciated Added lidocaine patch. continue bowel regimen Bronchitis breathing treatment Diabetes hold metfromin and give sliding scale insulin, diabetic diet Hyperlipidemia statin dvt prophylaxis s/c heparin ongoing need for stay- needs HD arrangement as outpt Quality Stroke Does the patient have a stroke diagnosis?: No VTE Prior VTE?: No VTE Risk Level:: Medical - moderate - high VTE Device Contraindication: Treatment Not Indicated VTE Drug Contraindication: N/A - Med Ordered
[2024-06-01 11:12] LABS: Glucose, Whole Blood 177 mg/dL (60-115)
[2024-06-01 11:50] LABS: Total Protein Urine Random 57 mg/dL (<12)
[2024-06-01] MEDS: Insulin Lispro 100 UNIT/ML 3 ML VIAL SUBCUT ×2 (11:53→20:09)
[2024-06-01 16:00] VITALS: BP 135/89; PULSE 109; RESP 18; TEMP 36.9; O2SAT 97
--- NOTE | 2024-06-01 16:15 | MHC.CM.PN ---
per rounds pt ready for dc awaiting chair time for dialysis
[2024-06-01 17:19] LABS: Glucose, Whole Blood 132 mg/dL (60-115)
[2024-06-01 19:30] VITALS: BP 164/80; PULSE 113; RESP 18; TEMP 36.9; O2SAT 94
[2024-06-01 19:54] LABS: Glucose, Whole Blood 233 mg/dL (60-115)
[2024-06-01] MEDS: Tamsulosin HCL 0.4 MG CAPSULE 0.8 MG PO (20:09)
[2024-06-01] MEDS: Melatonin 3 MG TABLET 6 MG PO (22:55)
[2024-06-02] VITALS (30 sets, daily range): BP systolic 127–169; BP diastolic 64–84; PULSE 77–101; RESP 12–20; TEMP 36.1–37.2; O2SAT 95–99
[2024-06-02] MEDS: 0.9 % Sodium Chloride Flush 3 ML SYRINGE IVFLUSH ×2 (03:40→16:25)
[2024-06-02] MEDS: Omeprazole 40 MG CAPSULE.DR PO (06:01)
[2024-06-02 07:50] LABS: Glucose, Whole Blood 137 mg/dL (60-115)
--- NOTE | 2024-06-02 08:20 | P.PNIM_ITS ---
Subjective Subjective Date of Service: 06/02/24 Interval History: no complaints Physical Exam 2 Vital Signs: Vital Signs: Last Vital Signs Temp 98.4 F 06/02/24 03:38 Pulse 90 06/02/24 07:41 Resp 16 06/02/24 07:41 BP 142/80 H 06/02/24 07:41 Pulse Ox 97 06/02/24 07:41 O2 Del Method Room Air 06/02/24 07:41 BMI result Body Mass Index 28.9 Const: Other: General - no acute distress, appears comfortable Cardiovascular - regular rate and rhythm, S1-S2 Lungs - normal respiratory effort, clear to auscultation bilaterally, no wheezing Abdomen - soft, nontender, no rebound or guarding Extremities - no edema bilaterally Neuro - awake and alert, no focal deficits Psych: Appearance: grossly normal Objective Data Active Medications Acetaminophen (Acetaminophen 325 Mg Tablet) 975 mg PO Q6H [facility] OF [facility] Last Admin: 06/02/24 03:41 Dose: Not Given Documented By: EN Non-Admin Reason: Patient Refused Al Hydroxide/Mg Hydroxide (Magnesium Hydrox/Alum Hydrox 30 Ml Oral.Susp) 30 ml PO Q4H PRN PRN Reason: Heartburn Amlodipine Besylate (Amlodipine Besylate 10 Mg Tablet) 10 mg PO DAILY [facility]; Protocol Last Admin: 06/01/24 08:10 Dose: 10 mg Documented By: GLORIA Aspirin (Aspirin 81 Mg Tab.Chew) 81 mg PO DAILY [facility] Last Admin: 05/24/24 08:43 Dose: 81 mg Documented By: YOLIE Atorvastatin Calcium (Atorvastatin Calcium 80 Mg Tablet) 80 mg PO DAILY [facility] Last Admin: 05/21/24 10:12 Dose: Not Given Documented By: BRITTNEY Non-Admin Reason: Physician Held Med Calcium Carbonate (Calcium Carbonate 750 Mg Tab.Chew) 750 mg PO Q4H PRN PRN Reason: Heartburn Dextrose (Dextrose 50 % 25 Gm/50 Ml Syringe) 25 gm IVPUSH Q15M PRN PRN Reason: HYPOGLYCEMIA STANDING PROTOCOL Fentanyl (Fentanyl Citrate/Pf 100 Mcg/2 Ml Vial) 50 mcg IVPUSH Q5M PRN; Protocol PRN Reason: sedation per intraop request by provider Stop: 06/02/24 10:13 Fentanyl (Fentanyl Citrate/Pf 100 Mcg/2 Ml Vial) 25 mcg IVPUSH Q5M PRN; Protocol PRN Reason: sedation per intraop request by provider Stop: 06/02/24 10:13 Glucose (Glucose Gel 15 Gm Gel..Gram.) 15 gm PO Q15M PRN; Protocol PRN Reason: per Hypoglycemia Standing Ord. Heparin Sodium (Porcine) (Heparin Sodium,Porcine 5,000 Unit/Ml Vial) 5,000 unit SUBCUT Q8H [facility] Last Admin: 05/24/24 17:08 Dose: 5,000 unit Documented By: YOLIE Hydralazine HCl (Hydralazine Hcl 50 Mg Tablet) 50 mg PO TID [facility]; Protocol Last Admin: 06/01/24 20:09 Dose: 50 mg Documented By: EN Hydralazine HCl (Hydralazine Hcl 20 Mg/Ml Vial) 10 mg IVPUSH INTRAOP PRN PRN Reason: per intraop request by provider Stop: 06/02/24 10:13 Hydralazine HCl (Hydralazine Hcl 20 Mg/Ml Vial) 20 mg IVPUSH INTRAOP PRN PRN Reason: per intraop request by provider Stop: 06/02/24 10:13 Insulin Human Lispro (Insulin Lispro 100 Unit/Ml 3 Ml Vial) 0 unit SUBCUT QIDACHS [facility]; Protocol Last Admin: 06/02/24 07:55 Dose: Not Given Documented By: BRITTNEY Non-Admin Reason: No Insulin Coverage Lidocaine (Lidocaine 4 % Patch Adh..Patch) 1 patch TRANSDERMA DAILY [facility]; Protocol Last Admin: 06/01/24 08:11 Dose: 1 patch Documented By: GLORIA Lidocaine HCl (Lidocaine 4 % Cream Kit) 1 appl TOPICAL DAILY [facility]; Protocol Last Admin: 06/01/24 14:44 Dose: Not Given Documented By: GLORIA Non-Admin Reason: Done in dialysis Magnesium Hydroxide (Milk Of Magnesia 30 Ml Oral.Susp) 30 ml PO DAILY PRN PRN Reason: Constipation Melatonin (Melatonin 3 Mg Tablet) 6 mg PO BEDTIME PRN PRN Reason: Insomnia Last Admin: 06/01/24 22:55 Dose: 6 mg Documented By: EN Midazolam HCl (Midazolam Hcl 5 Mg/Ml Vial) 1 mg IVPUSH Q5M PRN PRN Reason: sedation per intraop request by provider Stop: 06/02/24 10:13 Midazolam HCl (Midazolam Hcl 5 Mg/Ml Vial) 0.5 mg IVPUSH Q5M PRN PRN Reason: sedation per intraop request by provider Stop: 06/02/24 10:13 Multivitamins/Vitamin C (Multivitamin Tablet) 1 tab PO DAILY [facility] Last Admin: 06/01/24 08:10 Dose: 1 tab Documented By: GLORIA Naloxone HCl (Naloxone Hcl 0.4 Mg/Ml Vial) 0.4 mg IVPUSH Q2M PRN PRN Reason: per intraop request by provider Stop: 06/02/24 10:13 Non-Formulary Medication (Umeclidinium-Vilanterol [Anoro Ellipta]) 1 inhalation INHALE RDAILY [facility] Last Admin: 06/01/24 08:24 Dose: 1 inhalation Documented By: ANANT Omeprazole (Omeprazole 40 Mg Capsule.Dr) 40 mg PO DAILY@0630 [facility] Last Admin: 06/02/24 06:01 Dose: 40 mg Documented By: EN Ondansetron HCl (Ondansetron Hcl 4 Mg/2 Ml Vial) 4 mg IVPUSH Q8H PRN PRN Reason: Nausea and Vomiting Last Admin: 05/23/24 07:53 Dose: 4 mg Documented By: YOLIE Simethicone (Simethicone 80 Mg Tab.Chew) 80 mg PO QIDWMHS PRN PRN Reason: bloating Sodium Chloride (0.9 % Sodium Chloride Flush 3 Ml Syringe) 3 ml IVFLUSH QSHIFT ON [facility] Last Admin: 06/02/24 03:40 Dose: 3 ml Documented By: EN Tamsulosin HCl (Tamsulosin Hcl 0.4 Mg Capsule) 0.8 mg PO BEDTIME [facility] Last Admin: 06/01/24 20:09 Dose: 0.8 mg Documented By: EN Labs 05/26/24 05:42 05/29/24 13:48 Labs: Laboratory Results - last 24 hr 06/01/24 06/01/24 06/01/24 11:09 17:14 19:35 POC Glucose 177 H 132 H 233 H U Random Total Protein Urine Creatinine 06/01/24 06/02/24 Unknown 07:40 POC Glucose 137 H U Random Total Protein 57 H Urine Creatinine 64.60 Assessment and Plan (1) ESRD needing dialysis: Status: Acute (2) Uncontrolled hypertension: Status: Acute (3) Non-insulin dependent type 2 diabetes mellitus: Status: Acute Plan 59M PMH diabetes, hypertension, hyperlipidemia, presented with some abdominal discomfort nausea vomiting diarrhea, cough with pleuritic chest pain and found to have acute Kidney Injury, proctitis and bronchitis Acute renal failure with acute metabolic acidosis requiring acute hemodialysis multifactorial in nature, HTN, DM, unclear other factors; pending work up CT abd:There is moderate right renal atrophy in comparison with the left. No calculi or hydronephrosis. UA-has protein ,glucouria, large3+ blood, rbc >20, wbc 11-20,Leukocyte estrase +,bacteruria 4+. urine protein >2000,urine hepatitis serologies negative (Hep B immune). +ve HSV I&II IgG LIANG ,c3,c4 pending, perm cath in place; eventual renal biopsy (can be outpt if pt discharged) to d/w renal -- ? outpt dialysis chair Uncontrolled Hypertension better controlled on current regime - hydralazine 50 mg t.i.d. and amlodipine [address] reported abnormal findings suggestive of proctatitis, no clinical finding to suggest it DC IV Abx, symptomatic measures ID input appreciated Added lidocaine patch. continue bowel regimen Bronchitis breathing treatment Diabetes hold metfromin and give sliding scale insulin, diabetic diet Hyperlipidemia statin dvt prophylaxis s/c heparin ongoing need for stay- needs HD arrangement as outpt Quality Stroke Does the patient have a stroke diagnosis?: No VTE Prior VTE?: No VTE Risk Level:: Medical - moderate - high VTE Device Contraindication: Treatment Not Indicated VTE Drug Contraindication: N/A - Med Ordered
[2024-06-02] MEDS: hydrALAZINE HCl 20 MG/ML VIAL IVPUSH (08:35)
[2024-06-02] MEDS: Midazolam HCl 2 MG/2 ML VIAL 1 MG IVPUSH ×2 (08:41→08:50)
[2024-06-02] MEDS: fentaNYL citrate/PF 100 MCG/2 ML VIAL 50 MCG IVPUSH (08:42)
[2024-06-02] MEDS: Labetalol HCL 100 MG/20 ML VIAL 20 MG IVPUSH ×2 (08:45→10:04)
[2024-06-02] MEDS: fentaNYL citrate/PF 100 MCG/2 ML VIAL 25 MCG IVPUSH (08:49)
[2024-06-02] MEDS: Lidocaine HCl 1 % MPF 30 ML VIAL 10 ML SUBCUT (09:16)
--- NOTE | 2024-06-02 10:40 | PM.PROC ---
Brief Operative Note Date of procedure: 06/02/24 Pre-op diagnosis: RAMONITA Post-op diagnosis: same Procedure: CT left renal biopsy 3 x 18 g cores performed. No immediate complications. Will need strict blood pressure control, with goal <140/90. Patient received 20 mg Hydralazine and 20 mg Labetalol, 1.5 mg versed, 75 mcg fentanyl intraprocedure.
[2024-06-02 11:48] LABS: Glucose, Whole Blood 136 mg/dL (60-115)
[2024-06-02] MEDS: Multivitamin TABLET 1 TAB PO (12:01)
[2024-06-02] MEDS: hydrALAZINE HCl 50 MG TABLET PO ×3 (12:01→20:01)
[2024-06-02] MEDS: amLODIPine Besylate 10 MG TABLET PO (12:02)
[2024-06-02 14:29] LABS: Hematocrit 30.8 % (42.0-52.0); Hemoglobin 10.6 g/dl (14.0-18.0); Mean Corpuscular HGB Conc 34.4 g/dl (31.0-36.0); Mean Corpuscular Hemoglobin 28.6 pg (27.0-33.0); Mean Platelet Volume 8.5 fL (9.4-12.4); Platelet Count 291 X10*3/uL (160-400); Red Blood Count 3.71 X10*6/uL (4.60-5.80); Red Cell Distribution Width 13.5 % (11.0-16.0); White Blood Count 5.4 X10*3/uL (4.8-10.8)
[2024-06-02 14:51] LABS: Anion Gap 19 (12-20); Blood Urea Nitrogen 56 mg/dL (9-16); Calcium 9.2 mg/dL (8.4-10.2); Carbon Dioxide 22 mmol/L (22-29); Chloride 99 mmol/L (96-108); Creatinine Clr Calc Pharmacy 19.4; Estimated Glomerular Filt Rate 13; Glucose Random 149 mg/dL (60-115); Potassium 3.9 mmol/L (3.3-5.1); Sodium 136 mmol/L (135-145)
[2024-06-02 16:17] LABS: Glucose, Whole Blood 115 mg/dL (60-115)
[2024-06-02 19:41] LABS: Glucose, Whole Blood 265 mg/dL (60-115)
[2024-06-02] MEDS: Insulin Lispro 100 UNIT/ML 3 ML VIAL SUBCUT (20:01)
[2024-06-02] MEDS: Tamsulosin HCL 0.4 MG CAPSULE 0.8 MG PO (20:01)
[2024-06-02] MEDS: Melatonin 3 MG TABLET 6 MG PO (23:29)
[2024-06-02] MEDS: oxyCODONE HCl Immed Release 5 MG TABLET PO (23:59)
[2024-06-03] MEDS: 0.9 % Sodium Chloride Flush 3 ML SYRINGE IVFLUSH ×2 (00:01→17:10)
[2024-06-03 03:46] VITALS: BP 120/78; PULSE 101; RESP 18; TEMP 36.9; O2SAT 96
[2024-06-03] MEDS: Acetaminophen 325 MG TABLET 975 MG PO ×3 (03:50→17:07)
[2024-06-03] MEDS: Omeprazole 40 MG CAPSULE.DR PO (05:41)
[2024-06-03 07:31] VITALS: PULSE 83; RESP 18; O2SAT 98
[2024-06-03 07:40] VITALS: BP 160/80; PULSE 88; RESP 16; TEMP 36.6; O2SAT 98
[2024-06-03 07:49] LABS: Glucose, Whole Blood 153 mg/dL (60-115)
[2024-06-03] MEDS: Insulin Lispro 100 UNIT/ML 3 ML VIAL SUBCUT (08:14)
[2024-06-03] MEDS: Multivitamin TABLET 1 TAB PO (08:15)
[2024-06-03] MEDS: oxyCODONE HCl Immed Release 5 MG TABLET PO (08:15)
[2024-06-03] MEDS: amLODIPine Besylate 10 MG TABLET PO (08:16)
[2024-06-03] MEDS: hydrALAZINE HCl 50 MG TABLET PO ×2 (08:16→17:07)
[2024-06-03 09:00] LABS: Anion Gap 19 (12-20); Blood Urea Nitrogen 59 mg/dL (9-16); Calcium 8.7 mg/dL (8.4-10.2); Carbon Dioxide 20 mmol/L (22-29); Chloride 100 mmol/L (96-108); Creatinine Clr Calc Pharmacy 18.3; Estimated Glomerular Filt Rate 12; Glucose Random 194 mg/dL (60-115); Potassium 3.5 mmol/L (3.3-5.1); Sodium 135 mmol/L (135-145)
[2024-06-03 11:41] LABS: Glucose, Whole Blood 103 mg/dL (60-115)
[2024-06-03 11:42] VITALS: BP 150/68; PULSE 88; RESP 16; TEMP 37; O2SAT 96
--- NOTE | 2024-06-03 13:01 | P.DS_ITS ---
DS: Providers Provider Date of Service: 06/03/24 Date of admission: 05/19/24 18:35 Date of discharge: 06/03/24 Primary care physician: Dmitri Arzola MD Consults: 05/19/24 18:20 Consult to Nephrology Routine Consulting Provider: [facility] Reason for consultation: RAMONITA Has provider been notified: Yes 05/22/24 10:53 Consult to Infectious Diseases Routine Consulting Provider: [facility] Reason for consultation: acute procatitis Has provider been notified: No DS: Diagnosis Discharge Diagnosis (1) ESRD needing dialysis: Status: Acute (2) Uncontrolled hypertension: Status: Acute (3) Non-insulin dependent type 2 diabetes mellitus: Status: Acute (4) RAMONITA (acute kidney injury): Status: Acute (5) Acute proctitis: Status: Acute DS: Summary Hospital Course Hospital Course: The patient had prolonged hospital stay. for full details please return to EMR. Admission note HPI 59-year-old male with history of diabetes, hypertension who presented to the ED with much more compliant. He states that he has been having cough for about a week, having wheezing with some left-sided chest pain. Yesterday he described having much full episode of diarrhea nausea and vomiting and some abdominal pain in left lower quadrant area. He has no fever or chill no urinary symptoms. He is not describing any shortness of breath. His chest pain that he is describing is associated with a cough. Workup in the emergency room include normal WBC. He has elevated creatinine of 4.74, his last creatinine in August 2022 was 1.04. She denies any urinary symptoms. A CT scan of the abdomen and pelvis was done with finding of Mild wall thickening of the rectum diffusely, possibly secondary to underdistention although a mild proctitis is also a possibility, and chronic bronchitis changes at the lung base. He has been given doxycycline and ceftriaxone. He has not had any further diarrhea today. Hospital course The patient was admitted and treated for Acute renal failure with acute metabolic acidosis requiring acute hemodialysis which seems to be related more to ATN from dehydration as the prelim pathology report referring. On admission a CT abd showed moderate right renal atrophy in comparison with the left. No calculi or hydronephrosis with UA-has protein ,glucouria, large3+ blood, rbc >20, wbc 11-20,Leukocyte estrase +,bacteruria 4+. urine protein >2000,urine. hepatitis serologies negative (Hep B immune). +ve HSV I&II IgG. Evaluated by nephrology team who decided starting dialysis on 05/22 and had total of 6 dialysis sessions while inpatient with significant improvement in his creatinine level with significantly increased urine output over the course of hospital stay. Permacath was placed on 06/02/24. Had last inpatient HD session on 06/03/24 as Nephrology recommended to hold on further dialysis upon discharge and to repeat blood work next week and follow with dr Avina in the office pending final Pathology report as the prelim pointing at likely ATN related injury which gives a fair chance for him to recover and get off dialysis. to be followed as outpatient. He has a history of Uncontrolled Hypertension which is better controlled on current regime - hydralazine 50 mg t.i.d. and amlodipine 10 mg daily. to continue both on discharge. On Admission CT reported abnormal findings suggestive of proctatitis, no clinical finding to suggest it. treated primarly with IV antibiotics which were then discontinued. started on bowel regimen. Discharge plan Repeat blood work next week Follow with Dr Avina next week in office Discontinue Thiazide Continue Amlodipine and Hydralazine and Lisinopril for hypertension monitor blood pressure at home Time Attestation Discharge Coordination Time (in mins): 42 Quality: Safe Use of Opioids Does Pt have an Active Cancer Diagnosis on the Problem List?: No Quality: Stroke Does the patient have a stroke diagnosis?: No Physical Exam Vital Signs: Vital Signs: Last Vital Signs Temp 98.6 F 06/03/24 11:42 Pulse 88 06/03/24 11:42 Resp 16 06/03/24 11:42 BP 150/68 H 06/03/24 11:42 Pulse Ox 96 06/03/24 11:42 O2 Del Method Room Air 06/03/24 11:42 O2 Flow Rate 2 06/02/24 09:05 BMI result Body Mass Index 28.9 Const: Other: Constitutional : interactive, not in distress Cardiovascular : no JVP, no lower extremity edema, Permacath in place with no surrounding erythema or tenderness. Respiratory : bilateral chest movement, not in resp distress Gastrointestinal: soft, lax, Non tender Skin : Warm, Dry Neurological : Alert & oriented , No focal deficit DS: Data Data Completed and Pending Completed studies during hospitalization [Text1]: Pending at discharge 06/02/24 09:05 Surgical Path [Surgical] [PTH] Routine Labs on day of discharge: Laboratory Results - last 24 hr 06/02/24 06/02/24 06/02/24 14:23 16:09 19:18 WBC 5.4 RBC 3.71 L Hgb 10.6 L Hct 30.8 L MCV 83.0 MCH 28.6 MCHC 34.4 RDW 13.5 Plt Count 291 D MPV 8.5 L Absolute Nucleated RBC 0.000 Nucleated RBC % (auto) 0.0 Sodium 136 Potassium 3.9 Chloride 99 Carbon Dioxide 22 Anion Gap 19 BUN 56 H Creatinine 4.64 H* Estim Creat Clear Calc 19.4 Estimated GFR 13 POC Glucose 115 265 H Random Glucose 149 H Calcium 9.2 06/03/24 06/03/24 06/03/24 07:40 07:57 11:35 WBC RBC Hgb Hct MCV MCH MCHC RDW Plt Count MPV Absolute Nucleated RBC Nucleated RBC % (auto) Sodium 135 Potassium 3.5 Chloride 100 Carbon Dioxide 20 L Anion Gap 19 BUN 59 H Creatinine 4.92 H* Estim Creat Clear Calc 18.3 Estimated GFR 12 POC Glucose 153 H 103 Random Glucose 194 H Calcium 8.[address] scan - abdomen: Radiologist's impression: ITS Impressions Chest X-Ray 05/19/24 09:27 IMPRESSION: Low lung volumes with bronchovascular crowding. No definite active pulmonary disease. Electronically signed by: Tristan Bhandari MD 05/19/2024 10:01 AM EST RP Abdomen/Pelvis CT 05/19/24 15:49 IMPRESSION: 1. No acute findings in the abdomen or pelvis. 2. There is moderate right renal atrophy in comparison with the left. No calculi or hydronephrosis. 3. There is moderate pancolonic diverticulosis. No inflammation or wall thickening. 4. Mild wall thickening of the rectum diffusely, possibly secondary to underdistention although a mild proctitis is also a possibility. 5. Lung bases demonstrate mild thickening of the small airways and mosaic attenuation. Suggest chronic bronchitis. Electronically signed by: Tristan Bhandari MD 05/19/2024 04:33 PM EST RP Guidance Ultrasound 05/21/24 13:00 IMPRESSION: Placement of a non-tunneled hemodialysis catheter in the right internal jugular vein. PLAN: -The catheter may be used immediately. This procedure was performed by Fabrice Dean PA-C, and directly supervised by Dr. Shirley. Electronically signed by: Jalen Shirley MD 05/22/2024 02:20 PM EST RP Insertion Non-Tunneled Catheter 05/21/24 13:00 IMPRESSION: Placement of a non-tunneled hemodialysis catheter in the right internal jugular vein. PLAN: -The catheter may be used immediately. This procedure was performed by Fabrice Dean PA-C, and directly supervised by Dr. Shirley. Electronically signed by: Jalen Shirley MD 05/22/2024 02:20 PM EST RP Discharge Plan Discharge Anticipated Discharge Date/Time: 06/03/24 16:00 Patient Disposition: Home, Self-Care Discharge Diagnosis: Acute renal failure Acute proctatitis Referrals: Dmitri Arzola MD [Primary Care Provider] - 1 Week Discharge Medications: New tamsulosin 0.4 mg Capsule 0.8 mg PO BEDTIME Qty: 180 0RF amlodipine 10 mg Tablet 10 mg PO DAILY Qty: 90 0RF Protocol: Hold for SBP< HOLD for SBP < : 90 hydralazine 50 mg Tablet 50 mg PO TID Qty: 270 0RF Protocol: Hold for SBP< HOLD for SBP < : 90 Continued multivitamin Tablet 1 tab PO DAILY omeprazole 20 mg Capsule,Delayed Release(Dr/Ec) 40 mg PO DAILY@0630 atorvastatin 80 mg Tablet 80 mg PO DAILY Qty: 30 3RF aspirin 81 mg Tablet,Chewable 81 mg PO DAILY Qty: 30 3RF metformin 500 mg tablet 500 mg PO BID Anoro Ellipta 62.5-25 mcg/actuation Blister With Device 1 inh INHALATION DAILY lisinopril 5 mg tablet 10 mg PO DAILY Protocol: Hold for SBP< HOLD for SBP < : 90 Discontinued hydrochlorothiazide 25 mg tablet 25 mg PO DAILY Diet: Advance to usual diet Activity on Discharge: As tolerated Stand Alone Forms: Patient Portal Discharge page Print Language: Greenlandic Other Ambulatory Orders: Basic Metabolic Panel (Routine) Timeframe: 5 Days Facility: [facility] - Location: Laboratory Ordered By: Ginger iYn Care Plan Goals: Repeat blood work next week Follow with Dr Avina next week in office Discontinue Thiazide Continue Amlodipine and Hydralazine and Lisinopril for hypertension monitor blood pressure at home Health Concerns: Acute renal failure elevated blood pressure Plan of Treatment: repeat blood work and follow with nephrology as outpatient Assessment: as above
--- NOTE | 2024-06-03 13:16 | MHC.CM.PN ---
pt has a chair time fri at 12:[address] [place] [id number]
--- NOTE | 2024-06-03 13:22 | P.PNNP_ITS ---
Subjective Subjective Date of Service: 06/03/24 Interval history: No complaints; Feels better; UO improving Physical Exam 2 Vital Signs: Vital Signs: Last Vital Signs Temp 98.6 F 06/03/24 11:42 Pulse 88 06/03/24 11:42 Resp 16 06/03/24 11:42 BP 150/68 H 06/03/24 11:42 Pulse Ox 96 06/03/24 11:42 O2 Del Method Room Air 06/03/24 11:42 O2 Flow Rate 2 06/02/24 09:05 BMI result Body Mass Index 28.9 Const: General: comfortable Orientation/consciousness: patient oriented x3 Eyes: EOM: EOMs intact bilaterally Neck: Neck: Yes supple Resp: Auscultation: diminished lung sounds Cardio: Rate: regular rate GI: Palpation (GI): Soft to palpation Neuro: General: patient oriented x3 and moves all extremities Objective Data Labs 06/02/24 14:23 06/03/24 07:57 Labs: Laboratory Results - last 24 hr 06/02/24 06/02/24 06/02/24 14:23 16:09 19:18 WBC 5.4 RBC 3.71 L Hgb 10.6 L Hct 30.8 L MCV 83.0 MCH 28.6 MCHC 34.4 RDW 13.5 Plt Count 291 D MPV 8.5 L Absolute Nucleated RBC 0.000 Nucleated RBC % (auto) 0.0 Sodium 136 Potassium 3.9 Chloride 99 Carbon Dioxide 22 Anion Gap 19 BUN 56 H Creatinine 4.64 H* Estim Creat Clear Calc 19.4 Estimated GFR 13 POC Glucose 115 265 H Random Glucose 149 H Calcium 9.2 06/03/24 06/03/24 06/03/24 07:40 07:57 11:35 WBC RBC Hgb Hct MCV MCH MCHC RDW Plt Count MPV Absolute Nucleated RBC Nucleated RBC % (auto) Sodium 135 Potassium 3.5 Chloride 100 Carbon Dioxide 20 L Anion Gap 19 BUN 59 H Creatinine 4.92 H* Estim Creat Clear Calc 18.3 Estimated GFR 12 POC Glucose 153 H 103 Random Glucose 194 H Calcium 8.7 Microbiology Microbiology Results: Microbiology 05/19/24 17:44 Blood - Venous Blood Culture - Final No growth after 5 days. 05/19/24 17:23 Blood - Venous Blood Culture - Final No growth after 5 days. 05/22/24 Unknown Urine Catheterized - Straight Catheter Urine Culture - Final No growth. Procedures Date of Service Date of Service: 06/03/24 Assessment & Plan Assessment and plan (1) RAMONITA (acute kidney injury): Status: Acute Plan RAMONITA due to ATN ( S/P renal biopsy) Urine output improved; HD today Hold further HD after today; Labs in a few days Follow up with me in the office next Saturday Shall decide re removal of permcath after office visit Sat Progress Note: Quality Stroke Does the patient have a stroke diagnosis?: No
[2024-06-03 16:40] LABS: Glucose, Whole Blood 131 mg/dL (60-115)
[2024-06-03 17:01] VITALS: BP 132/72; PULSE 101; RESP 20; TEMP 36.3; O2SAT 97
== END 2024-06-03 18:51 | disposition home or self-care (01) | DRG 469 ==
LOC: HO.ED 17:22 → HO.EDOVER 18:52 → HO.S3 05-20 19:48
PROVIDERS: Family Medicine; Internal Medicine; Internal Medicine Hypertension Specialist; Physician Assistant; Physician Assistant Surgical; Admitting Provider Internal Medicine; Emergency Provider Emergency Medicine; PCP Internal Medicine; Visit Provider Student in an Organized Health Care Education/Training Program
DX: N17.0 Acute kidney failure with tubular necrosis (principal); E87.21 Acute metabolic acidosis; E11.9 Type 2 diabetes mellitus without complications; I10 Essential (primary) hypertension; E78.5 Hyperlipidemia, unspecified; K62.89 Other specified diseases of anus and rectum; K59.00 Constipation, unspecified; E86.0 Dehydration; F17.210 Nicotine dependence, cigarettes, uncomplicated; J20.8 Acute bronchitis due to other specified organisms; Z71.6 Tobacco abuse counseling; Z79.82 Long term (current) use of aspirin; Z79.84 Long term (current) use of oral hypoglycemic drugs; Z79.899 Other long term (current) drug therapy
CPT/HCPCS: 36415; 36556; 36558; 50200; 71046; 74176; 76775; 76937; 77012; 80048; 80053; 81001; 82550; 82570; 82803; 82947; 83520; 83605; 83735; 83935; 84156; 84165; 84300; 84484; 85025; 85027; 85610; 86021; 86038; 86160; 86695; 86696; 86704; 86706; 86780; 86850; 86900; 86901; 87040; 87086; 87340; 87491; 87591; 87651; 88300; 88305; 88313; 88346; 88348; 88350; 90999; 93005; 94640; 99152; 99285; C1750; C1752; C1758; C1769; C1887; J0360; J0690; J0696; J1171; J1644; J1836; J1920; J2003; J2250; J2270; J2405; J3010; J7120

== ENCOUNTER → 2024-05-19 09:08 | Outpatient (BNV) | payer MEDICAID, SELFPAY | PROVIDERS: Admitting Provider Internal Medicine; Emergency Provider Emergency Medicine; PCP Internal Medicine; Visit Provider Internal Medicine Cardiovascular Disease | DX: R94.31 Abnormal electrocardiogram [ECG] [EKG] (principal) | CPT/HCPCS: 93010 ==

== ENCOUNTER → 2024-05-19 09:27 | Outpatient (BNV) | payer MEDICAID, SELFPAY | PROVIDERS: PCP Internal Medicine; Visit Provider Radiology Diagnostic Radiology | DX: J98.4 Other disorders of lung (principal); K57.50 Diverticulosis of both small and large intestine without perforation or abscess without bleeding; N26.1 Atrophy of kidney (terminal) | CPT/HCPCS: 71046; 74176 ==

== ENCOUNTER 2024-05-19 18:35 | Outpatient (BNV) | payer MEDICAID, SELFPAY | END 2024-05-28 07:00 | PROVIDERS: Admitting Provider Internal Medicine; Emergency Provider Emergency Medicine; PCP Internal Medicine; Visit Provider Physician Assistant Surgical | DX: N18.6 End stage renal disease (principal) | CPT/HCPCS: 36581; 76937; 77001 ==

== ENCOUNTER 2024-05-19 18:35 | Outpatient (BNV) | payer MEDICAID, SELFPAY | END 2024-05-20 10:39 | PROVIDERS: Admitting Provider Internal Medicine; Emergency Provider Emergency Medicine; PCP Internal Medicine; Visit Provider Radiology Diagnostic Radiology | DX: N17.9 Acute kidney failure, unspecified (principal) | CPT/HCPCS: 76775 ==

== ENCOUNTER 2024-05-19 18:35 | Outpatient (BNV) | payer MEDICAID, SELFPAY | END 2024-05-21 13:00 | PROVIDERS: Admitting Provider Internal Medicine; Emergency Provider Emergency Medicine; PCP Internal Medicine; Visit Provider Physician Assistant Surgical | DX: N17.9 Acute kidney failure, unspecified (principal) | CPT/HCPCS: 36556; 76937 ==

== ENCOUNTER 2024-05-19 18:35 | Outpatient (BNV) | payer MEDICAID, SELFPAY | END 2024-06-02 08:24 | PROVIDERS: Admitting Provider Internal Medicine; Emergency Provider Emergency Medicine; PCP Internal Medicine; Visit Provider Physician Assistant Surgical | DX: N17.9 Acute kidney failure, unspecified (principal) | CPT/HCPCS: 50200; 77012 ==

== ENCOUNTER → 2024-05-19 18:35 | Outpatient (BNV) | payer MEDICAID, SELFPAY | PROVIDERS: Admitting Provider Internal Medicine; Emergency Provider Emergency Medicine; PCP Internal Medicine; Visit Provider Internal Medicine | DX: N18.6 End stage renal disease (principal); Z99.2 Dependence on renal dialysis; I12.0 Hypertensive chronic kidney disease with stage 5 chronic kidney disease or end stage renal disease; E11.9 Type 2 diabetes mellitus without complications | CPT/HCPCS: 99231; 99232; 99233 ==

== ENCOUNTER → 2024-05-19 18:35 | Outpatient (BNV) | payer MEDICAID, SELFPAY | PROVIDERS: Admitting Provider Internal Medicine; Emergency Provider Emergency Medicine; PCP Internal Medicine; Visit Provider Internal Medicine Hypertension Specialist | DX: N17.9 Acute kidney failure, unspecified (principal) | CPT/HCPCS: 99223; 99232 ==

== ENCOUNTER → 2024-05-19 18:35 | Outpatient (BNV) | payer MEDICAID, SELFPAY | PROVIDERS: Admitting Provider Internal Medicine; Emergency Provider Emergency Medicine; PCP Internal Medicine; Visit Provider Internal Medicine | DX: N17.9 Acute kidney failure, unspecified (principal) | CPT/HCPCS: 99222 ==

== ENCOUNTER 2024-06-06 07:55 | Emergency (ER) | payer MEDICAID, SELFPAY ==
[2024-06-06 07:58] VITALS: BP 154/76; PULSE 109; RESP 18; TEMP 36.2; O2SAT 99; BMI 26.6
--- NOTE | 2024-06-06 08:18 | ED_ITS ---
HPI - General Adult General Chief complaint: General Medical Stated complaint: swelling after getting dialysis earlier this week Time Seen by Provider: 06/06/24 08:18 History of Present Illness ED Provider: Timur HANSEN narrative: The patient is a 59-year-old male with a history of hypertension. He was recently hospitalized for an acute kidney injury. He was hospitalized from May 19 through June 03 and required dialysis for the 1st time. He has a right upper chest dialysis catheter. He was discharged from the hospital 3 days ago on June 03. Yesterday he started to develop swelling on the left side of his face. This was not associated with any pain. The swelling has migrated across his face and he has a mild swelling to both lips. He has had no fever, sweats, chills. No difficulty breathing. No cough or sputum. He is on lisinopril. Related Data Home Medications ?Medication ?Instructions ?Recorded ?Confirmed multivitamin 1 tab PO DAILY 09/19/22 05/19/24 omeprazole 20 mg capsule,delayed 40 mg PO DAILY@0630 09/19/22 05/19/24 release lisinopril 5 mg tablet 10 mg PO DAILY 05/19/24 05/19/24 metformin 500 mg tablet 500 mg PO BID 05/19/24 05/19/24 umeclidinium 62.5 mcg-vilanterol 1 inh inhalation DAILY 05/19/24 05/19/24 25 mcg/actuation powdr for inhalation (Anoro Ellipta) Previous Rx's ?Medication ?Instructions ?Recorded aspirin 81 mg chewable tablet 81 mg PO DAILY #30 tabs 09/21/22 atorvastatin 80 mg tablet 80 mg PO DAILY #30 tabs 09/21/22 amlodipine 10 mg tablet 10 mg PO DAILY #90 tabs 06/03/24 hydralazine 50 mg tablet 50 mg PO TID #270 tabs 06/03/24 tamsulosin 0.4 mg capsule 0.8 mg (2 x 0.4 mg) PO BEDTIME 06/03/24 #180 caps Allergies Allergy/AdvReac Type Severity Reaction Status Date / Time No Known Allergies Allergy Verified 06/06/24 08:02 Review of Systems 2 Review of Systems: Yes all other systems are reviewed and are negative PMFSH Past Medical History Medical History HLD (hyperlipidemia) Non-insulin dependent type 2 diabetes mellitus Asthma Hypertension Social History Social History Household Members: Family Housing: Apartment Do you presently have visiting nurse or other home services: No Alcohol intake: former Patient Tobacco Use Status: Current someday Tobacco user Tobacco use type: Cigarette Cigarette Packs Per Day: 1 Cigarettes Per Day: 9 e-Cigarette/Vaping Use: Never Used Second Hand Smoke Exposure: No service: No Current occupational status: employed Physical Exam ED Vital Signs: Vital Signs - 24 hr 06/06/24 07:58 Temperature 97.2 F Pulse Rate 109 H Respiratory Rate 18 Blood Pressure 154/76 H Pulse Oximetry 99 Oxygen Delivery Method Room Air BMI result Body Mass Index 26.6 Const Other: The patient is awake, alert, pleasant, cooperative. He does not appear acutely ill although he has some swelling to his face and his lips. HENMT Other: There is some mild swelling to both lips. There is some mild swelling to the right cheek. There is no erythema associated with this. There is no trismus. The posterior pharynx is entirely normal. No intraoral swelling. The tongue is normal. Eyes General: appearance normal, both eyes and all related structures Neck Neck: Yes full ROM and Yes no lymphadenopathy Resp Effort & Inspection: normal respiratory effort Auscultation: clear to auscultation bilaterally Cardio Rate: regular rate Rhythm: regular rhythm Heart sounds: S1 normal heart sound present and S2 normal heart sound present GI Other: Abdomen is soft and nontender Skin Other: Skin is dry and unremarkable. Neuro Other: The patient is awake and alert with a normal mental status. He looks entirely nontoxic. He is cheerful and talkative. Cranial nerves are intact. He moves his extremities normally. His gait is normal. Extrem Other: No peripheral edema. No calf swelling or tenderness. Medical Decision Making Medical Decision Making MDM Narrative: The patient presents with a facial swelling that is characterized by a bland edema to his lips and his cheeks. This has the appearance of angioedema. I do not appreciate any sign of infection. The patient's demeanor is entirely benign. His tongue is not swollen. His posterior airway is not swollen and he has no voice change or difficulty breathing or swallowing. The patient is on lisinopril. 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 His last dose of lisinopril was yesterday morning. The patient was recently hospitalized for an acute kidney injury that was severe enough that he required dialysis for the 1st time. We checked his labs today. His creatinine is 3.98. This is somewhat better than it was 3 days ago when it was 4.92. His BUN has gone up a bit to 72. The patient has scheduled repeat blood work in 2 days on Saturday and may also get dialysis on Saturday. His potassium today is 3.7. I do not think there is any requirement that we intervene on this issue today. The patient was observed and was not experiencing any progression of his angioedema. I explained to the patient that I thought that this was related to his lisinopril. He was told that he needs to stop the lisinopril. He will be discharged with a plan to keep his current follow up appointments on Saturday. If he develops any worsening swelling he may need to return to the emergency room however. Lab Data 06/06/24 08:50 06/06/24 08:50 Labs: Lab Results 06/06/24 Range/Units 08:50 WBC 5.1 (4.8-10.8) X10*3/uL RBC 3.46 L (4.60-5.80) X10*6/uL Hgb 9.8 L (14.0-18.0) g/dl Hct 28.6 L (42.0-52.0) % MCV 82.7 (80.0-98.0) fL MCH 28.3 (27.0-33.0) pg MCHC 34.3 (31.0-36.0) g/dl RDW 13.3 (11.0-16.0) % Plt Count 300 (160-400) X10*3/uL MPV 8.5 L (9.4-12.4) fL Immature Gran % (Auto) 0.2 (0.0-0.4) % Neut % (Auto) 49.4 (45-73) % Lymph % (Auto) 38.9 (20-40) % [place] % (Auto) 9.3 (2-11) % Eos % (Auto) 1.4 (0-4) % Baso % (Auto) 0.8 (0-2) % Lymph # (Auto) 2.0 (1.2-4.9) X10*3/uL [place] # (Auto) 0.5 (0.1-1.2) X10*3/uL Eos # (Auto) 0.1 (0.0-0.4) X10*3/uL Baso # (Auto) 0.0 (0.0-0.2) X10*3/uL Abs Immat Gran (auto) 0.01 (0.00-0.03) X10*3/uL Absolute Neuts (auto) 2.5 (2.0-8.3) x10*3/uL Absolute Nucleated RBC 0.000 (0.0-0.012) X10*3/uL Nucleated RBC % (auto) 0.0 (0.0-0.2) /100WBC Sodium 137 (135-145) mmol/L Potassium 3.7 (3.3-5.1) mmol/L Chloride 104 (96-108) mmol/L Carbon Dioxide 18 L (22-29) mmol/L Anion Gap 19 (12-20) BUN 72 H (9-16) mg/dL Creatinine 3.98 H (0.5-1.4) mg/dL Estim Creat Clear Calc 20.6 Estimated GFR 16 Random Glucose 121 H (60-115) mg/dL Calcium 8.7 (8.4-10.2) mg/dL Magnesium 1.7 (1.6-2.6) mg/dL Total Bilirubin 0.4 (0.0-1.0) mg/dL Direct Bilirubin 0.2 (0.0-0.5) mg/dL AST 20 (5-37) U/L ALT 28 (0-40) U/L Alkaline Phosphatase 91 (39-117) U/L C-Reactive Protein 2.04 H (< or = 0.50) mg/dL Total Protein 7.2 (6.5-8.0) g/dL Albumin 3.9 (3.5-5.0) g/dL Discharge Plan Discharge Clinical Impression: AHMET inhibitor-aggravated angioedema Patient Disposition: Home, Self-Care Instructions: Angioedema (ED) Additional Instructions: The swelling in your face is a condition called angioedema. I believe that in your case the angioedema is being caused by one of the blood pressure medicines you are taking, lisinopril. Therefore please do not take anymore lisinopril in the future. Additionally you should never take any medications in the class of medications called AHMET inhibitors. You may continue all of your other medications. Please keep your appointments on Saturday with regard to your blood testing and possible dialysis. Return to the emergency room if worse. Prescriptions: No Action multivitamin Tablet 1 tab PO DAILY omeprazole 20 mg Capsule,Delayed Release(Dr/Ec) 40 mg PO DAILY@0630 atorvastatin 80 mg Tablet 80 mg PO DAILY Qty: 30 3RF aspirin 81 mg Tablet,Chewable 81 mg PO DAILY Qty: 30 3RF metformin 500 mg tablet 500 mg PO BID Anoro Ellipta 62.5-25 mcg/actuation Blister With Device 1 inh INHALATION DAILY lisinopril 5 mg tablet 10 mg PO DAILY Protocol: Hold for SBP< HOLD for SBP < : 90 tamsulosin 0.4 mg Capsule 0.8 mg PO BEDTIME Qty: 180 0RF amlodipine 10 mg Tablet 10 mg PO DAILY Qty: 90 0RF Protocol: Hold for SBP< HOLD for SBP < : 90 hydralazine 50 mg Tablet 50 mg PO TID Qty: 270 0RF Protocol: Hold for SBP< HOLD for SBP < : 90 Referrals: [facility] [Provider Group] Dmitri Arzola MD [Physician] - Interventions: ED Discharge Assessment Last Done: 06/06/24 09:51 Print Language: Lebanese
--- OUTSIDE RECORDS SUMMARY | 2024-06-06 08:45 | XMS_ITS | Clinical Summary ---
Author Organization [facility] Address [address] [place] [address] Care Team Providers Care Bill Poster Installer Name Role Phone Dmitri Arzola MD Primary Care Provider Source Comments PLEASE NOTE, if this patient is a minor, it may be UNLAWFUL to discuss sensitive information that is contained in these records (such as FAMILY PLANNING, MENTAL HEALTH or SUBSTANCE ABUSE) with the minor patient's parent or other person without the patient's specific authorization.[facility] Allergies No known active allergies Medications omega-3s/dha/epa/f lynette oil/D3 (VITAMIN-D + OMEGA-3 ORAL) 12/11/19 18 Active ibuprofen 600 mg tabletIndications: Chronic right shoulder pain Take 1 Tab by mouth 2 to 3 (two to three) times daily as needed for pain 60 Tab 05/06/19 20 Active albuterol sulfate (ACCUNEB) 0.63 mg/3 mL nebulizer solutionIndication s:Moderate persistent asthma without complication Take 3 mL by nebulization every 6 (six) hours as needed for wheezing 100 Vial 1 05/06/19 20 Active nebulizer accessoriesIndicat ions:Moderate persistent asthma without complication FOR ASTHMA TREATMENT. 1 Device 05/06/19 20 Active nebulizer and compressorIndicati ons:Moderate persistent asthma without complication FOR ASTHMA TREATMENT 1 Each 05/06/19 20 Active albuterol sulfate 90 mcg/actuation inhalerIndications :Moderate persistent asthma without complication Inhale 2 Puffs into the lungs every 4 to 6 (four to six) hours 18 g 2 07/17/19 20 Active miscellaneous medical supply miscIndications:Pr imary hypertension by miscellaneous route once daily Dx: Hypertension, BERNADETTE: [employer], Supply: Blood Pressure Kit 1 Each 10/21/19 22 Active ANORO ELLIPTA 62.5-25 mcg/actuation dsdvIndications:Mo derate persistent asthma with acute exacerbation INHALE 1 PUFF BY MOUTH EVERY DAY 60 Each 3 03/31/20 22 Active aspirin 81 mg chewable tablet Take 81 mg by mouth once daily 09/22/19 23 Active blood-glucose meter monitoring kitIndications:Typ e 2 diabetes mellitus without complication, without long-term current use of insulin ([facility]) Pt is Diabetic . E11.9 1 Each 07/11/19 24 Active alcohol swabsIndications:T ype 2 diabetes mellitus without complication, without long-term current use of insulin ([facility]) Pt is Diabetic . E11.9 once a day 100 Each 1 07/11/19 24 Active lancets (FREESTYLE LANCETS) 28 gaugeIndications:T ype 2 diabetes mellitus without complication, without long-term current use of insulin ([facility]) Pt is Diabetic . E11.9 check once a day 100 Each 1 07/11/19 24 Active blood sugar diagnostic (FREESTYLE TEST) stripsIndications: Type 2 diabetes mellitus without complication, without long-term current use of insulin ([facility]) USE TO TEST ONCE A DAY 100 Each 11 10/07/19 24 Active omeprazole (PRILOSEC) [address] capsuleIndications :Gastroesophageal reflux disease without esophagitis TAKE 1 CAPSULE BY MOUTH EVERY DAY IN THE MORNING BEFORE BREAKFAST 90 Capsule 2 01/07/20 24 Active hydroCHLOROthiazid e (HYDRODIURIL) 25 mg tabletIndications: Primary hypertension TAKE 1 TABLET BY MOUTH EVERY DAY 90 Tablet 1 01/07/20 24 Active atorvastatin (LIPITOR) 80 mg tabletIndications: Cerebrovascular accident (CVA) due to occlusion of left anterior cerebral artery ([facility]),Mixed hyperlipidemia TAKE 1 TABLET BY MOUTH EVERY DAY 90 Tablet 1 03/06/20 24 Active lisinopriL 10 mg tabletIndications: Cerebrovascular accident (CVA) due to occlusion of left anterior cerebral artery ([facility]),[facility] hypertension TAKE 1 TABLET BY MOUTH EVERY DAY 90 Tablet 1 03/16/20 24 Active metFORMIN (GLUCOPHAGE) 500 mg tabletIndications: Controlled type 2 diabetes mellitus without complication, without long-term current use of insulin ([facility]) TAKE 1 TABLET BY MOUTH TWICE A DAY WITH A MEAL 180 Tablet 05/04/19 25 Active Active Problems Problem Noted Date Diagnosed Date Food insecurity 04/16/2024 Financial difficulties 04/16/2024 Cerebrovascular accident (CV A) due to occlusion of left anterior cerebral artery ([facility]) 09/26/2022 Overview (09/26/2022): Admitted [facility]- Admitted 09/21/22 and Woke up in middle of nite with Right leg weak. Attempted to walk but fell. Went to ER CTA of head and neck revealed suspected small acute infarct within Left parasagittal frontal parietal lobe in left FORD territory . Pt was given ASA 81 mg and Atorvastatin 80 mg . Admitted to telemetry. No Dysrthymias . MRI Head- subacute cortical infarct involving left frontal and parietal lobe near vertex. He dramatically improved over course the course next 48 hours to the point where he able to ambulate with walker and do stairs . Had PT And Discharge home on high dose ASA and Lisinopril 5 mg and Atorvastatin 80 mg Primary hypertension 10/27/2021 Mixed hyperlipidemia 10/01/2021 Chronic right shoulder pain 05/06/2019 Left shoulder pain 08/11/2017 Overview (08/11/2017): [facility] negative in 2017 Controlled type 2 diabetes m melly, without long-term current use of insulin ([facility]) 01/04/2015 Lump 10/28/2014 Overview (10/28/2014): R foot [facility] 09/2014: negative Mild intermittent asthma 09/28/2014 Overview (09/28/2014): Since childhood Gastroesophageal reflux disease without esophagi tis 09/28/2014 Overview (12/31/2014): [facility] 2014 EGD:chronic gastritis: H pylori Colonoscopy: normal, f/u in 5 yrs Right knee pain 09/28/2014 Overview (09/28/2014): Had surgery (per pt removed liquid) in 2005 Resolved Problems Problem Noted Date Diagnosed Date Resolved Date Numbness of right lower extremity 06/10/2015 07/11/2023 Encounters Date Type Department Care Team Description 04/16/2024 9:00 AM EST Office Visit [address] [id number] [place] Food insecurity (Primary Dx); Financial difficulties 04/16/2024 Travel from Last 3 Months Immunizations Name Administration Dates Next Due Flu, Cell Culture based, Pre servative Free, 6m+, Flucelvax 12/21/2022 Flu, Preservative Free 06/15/2021,04/21/2018, Hep B,adult,adjuvanted (HEPLISAV) 04/11/2023,05/2022 INFLUENZA, SEASONAL, INJECTABLE 02/27/2016 PFIZER COVID VACCINE, PURPLE CAP, 12+ 06/16/2021 ,06/16/2021 PNEUMOCOCCAL CONJUGATE PCV 20 (Prevnar) 12/22/19 23,09/28/2022 PNEUMOCOCCAL POLYSACCHARIDE PPV23 10/04/2016 Pfizer COVID-19 (Comirnaty), Mrna, Lnp-s, Pf, Maximiliano-sucrose, 30 Mcg/0.3 Ml, 12yr+ 04/11/2023 Pfizer-BioNTech COVID-19 Vac cine Bivalent, (CORCORAN PFIZER-BIONTECH COVID-19 VACCINE BIVALENT, (CORCORAN CAP 09/28/2022 TDAP 05/06/2019 ZOSTER VACCINE, RECOMBINANT (SHINGRIX) 4 Family History Medical History Relation Name Comments Cancer Father colon/ prostate cancer Cancer Maternal Grandmother stomach cancer Diabetes Mother Hypertension Mother Relation Name Status Comments Father Alive Maternal Grandmother Mother Alive Social History Tobacco Use Types Packs/Day Years Used Date Smoking Tobacco: Every Day Cigarettes 0.3 30 Passive Smoke Exposure: Never Smokeless Tobacco: Never Tobacco Cessation:Ready to Q uit: No; Counseling Given: Yes Comments:Half a pack Alcohol Use Standard Drinks/Week Comments Yes 2 (1 standard drink = 0.6 oz pur e alcohol) Socially Social Connections Answer Date Recorded Connectedness 1 04/16/2024 Financial Resource Strain Answer Date R ecorded Financial Resource Strain 2 2023 Stress Answer Date Recorded Stress 1 04/16/2024 Physical Activity Answer Date Recorded Physical Activity 0 12/21/2018 Food Insecurity Answer Date Recorded Food 2 04/16/2024 Transportation Needs Answer Date Record ed Transportation 1 04/16/2024 Housing Stability Answer Date Recorded Housing 1 04/16/2024 Safety and Environment Answer Date Ubddy rded Safety 0 12/21/2018 Utilities Answer Date Recorded Utilities 2 04/16/2024 Employment Answer Date Recorded Stress 0 01/14/2024 Sex and Gender Information Value Date Recorded Sex Assigned at Male 03/15/2017 8:21 AM PST Legal Sex Male 6:01 AM PDT Gender Identity Male 03/15/2017 8:21 AM PST Sexual Orientation Straight 03/15/2017 8: 21 AM PST Last Filed Vital Signs Vital Sign Reading Time Taken Comments Blood Pressure 146/82 02/03/2024 9:07 AM EDT Pulse 70 02/03/2024 9:07 AM EDT Temperature 36.7 ??C (98.1 ??F) 02/03/2024 9:07 AM ED T Respiratory Rate 16 02/03/2024 9:07 AM EDT Oxygen Saturation 98% 02/03/2024 9:07 AM EDT Inhaled Oxygen Concentration - - Weight 87.1 kg (192 lb) 02/03/2024 9:07 AM EDT Height 175.3 cm (5' 9 ) 02/03/2024 9:07 AM EDT Body Mass Index 28.35 02/03/2024 9:07 AM EDT Plan of Treatment Health Maintenance Due Date Last Done Comments Dental Examination [address] Colonography 2010 Fecal DNA 2010 Flexible Sigmoidoscopy 2010 Colonoscopy 12/01/2019 11/30/2014 (Amelia ashton by Outside Provider) Imm-Zoster, Recombinant (2 of 2) 03/30/2024 02/03/20 24 Annual Preventive Care Visit 04/11/2024, 06/15/2021, 05/06/2019, Additional history exists Lipid Screening 04/11/2024 04/11/2023, 05/30, 05/08/2019, Additional history exists Serum Creatinine 04/11/2024 04/11/2023, , 05/08/2019, Additional history exists Alcohol and Drug Screen 04/29/2024 07/11/19 24, 09/28/2022, 06/15/2021, Additional history exists Depression Annual Screen 04/29/2024 07/11/2023, 05/2014 Diabetes HbA1c 05/05/2024 02/03/2024, 03/29, 06/15/2021, Additional history exists Colorectal Cancer Screening 05/11/2024 Diabetes Foot Exam 07/10/2024 07/11/2023 Tobacco Cessation Counseling (#1) 02/02/2025 023, 05/06/2019 FIT/gFOBT 05/10/2025 05/10/2024, 10/2021, 07/03/2021, Additional history exists Diabetes Microalbumin (w/Creatinine) 05/12/2025 05/12/2024 Imm-DTaP/Tdap/Td (2 - Td or Tdap) 05/06/2029 020 HIV Screening Completed 05/08/2019 Hepatitis C Screening Completed 05/08/2019 Imm-Pneumococcal Completed 12/21/2022, 05/2022, 10/04/2016 Imm-Hepatitis B Completed 04/11/2023, 09/28/2022 [id number] Completed 01/08/2024, 03/29, 09/28/2022, Additional history exists Imm-Influenza Completed 01/08/2024, 11/28, 06/15/2021, Additional history exists Procedures Procedure Name Priority Date/Time Associated Diagnosis Comments HEALTH HISTORY SCANNED DOCUMENT 06/01/2024 3:00 AM EST OTHER ORDERS SCANNED DOCUMENT 05/29/2024 3:00 AM EST IMAGING SCANNED DOCUMENT 05/19/2024 3:00 AM EST IMAGING SCANNED DOCUMENT 05/19/2024 3:00 AM EST IMAGING SCANNED DOCUMENT 05/19/2024 3:00 AM EST IMAGING SCANNED DOCUMENT 05/19/2024 3:00 AM EST IMAGING SCANNED DOCUMENT 05/19/2024 3:00 AM EST IMAGING SCANNED DOCUMENT 05/19/2024 3:00 AM EST IMAGING SCANNED DOCUMENT 05/19/2024 3:00 AM EST IMAGING SCANNED DOCUMENT 05/19/2024 3:00 AM EST IMAGING SCANNED DOCUMENT 05/19/2024 3:00 AM EST IMAGING SCANNED DOCUMENT 05/19/2024 3:00 AM EST MICROALBUMIN/CREATININE RATIO, URINE, RANDOM Routine 05/12/2024 8:40 AM EST Type 2 diabetes mellitus without complication, without long-term current use of insulin ([facility]) FECAL GLOBIN BY IMMUNOCHEMISTRY (FIT) Routine 05/10/2024 7:00 PM EST Screen for colon cancer HEMOGLOBIN GLYCOSYLATED A1C Routine 02/03/2024 9:40 AM EDT Type 2 diabetes mellitus without complication, without long-term current use of insulin ([facility]) COMPREHENSIVE METABOLIC PANEL Routine 04/11/2023 9:10 AM EST Routine general medical examination at a health care facility Primary hypertension Prediabetes Mixed hyperlipidemia Gastroesophageal reflux disease without esophagitis LIPID PANEL Routine 04/11/2023 9:10 AM EST Routine general medical examination at a health care facility Primary hypertension Mixed hyperlipidemia Cerebrovascular accident (CVA) due to occlusion of left anterior cerebral artery ([facility]) ANTIBODY HIV-1&HIV-2 SINGLE RESULT Routine 05/08/2019 9:55 AM EST Encounter for general adult medical examination w/o abnormal findings HEPATITIS A,B,C PANEL Routine 05/08/2019 9:55 AM EST Encounter for general adult medical examination w/o abnormal findings from Last 3 Months or Most Recently Relevant to Health Maintenance Results * HEALTH HISTORY SCANNED DOCUMENT (06/01/2024 3:00 AM EST) 06/01/2024 3:00 AM EST us Dmitri Arzola MD SCAN OTHER ORDERS Final Result * OTHER ORDERS SCANNED DOCUMENT (05/29/2024 3:00 AM EST) 05/29/2024 3:00 AM EST us Dmitri Arzola MD SCAN OTHER ORDERS Final Result * IMAGING SCANNED DOCUMENT (05/19/2024 3:00 AM EST) Only the most recent of10 resultswithin the time period is included. 05/19/2024 3:00 AM EST us Dmitri Arzola MD SCAN IMAGING Final Result * MICROALBUMIN/CREATININE RATIO, URINE, RANDOM (05/12/2024 8:40 AM EST) CREATININE, RANDOM URINE 125 20 - 320 mg/dL [facility] MICROALBUMIN 1.3 mg/dL [employer] [employer] [facility] Comment: Reference Range Not established MICROALBUMIN/CREA TININE RATIO, RANDOM URINE 10 <30 mg/g creat [facility] Comment: The ADA defines abnormalities in albumin excretion as follows: Albuminuria Category ?Result (mg/g creatinine) Normal to Mildly increased ?? <30 Moderately increased ? 30-299 Severely increased ? > OR = 300 The ADA recommends that at least two of three specimens collected within a 3-6 month period be abnormal before considering a patient to be within a diagnostic category. Urine Urine specimen / Unknown 05/12/2024 8:40 AM EST 05/12/2024 8:40 AM EST Narrative [facility] - 05/14/2024 6:43 PM EST SPLIT 02/03/2024 FROM [id number] us Dmitri Arzola MD LAB - NO BLOOD DRAW Final Resul t [facility] [address] [place] [id number], [facility] [address] [place] [phone] * FECAL GLOBIN BY IMMUNOCHEMISTRY (FIT) (05/10/2024 7:00 PM EST) FECAL GLOBIN BY IMMUNOCHEMISTRY See Note [facility] Comment: ??FECAL GLOBIN BY IMMUNOCHEMISTRY ?Micro Number: ?[id number] ??Test Status: ? Final ??Specimen Source: ?? Insure (tm) fobt test card ??Specimen Quality: ??Adequate ??Fecal Globin: ?Not Detected Stool Stool specimen / Unknown 05/10/2024 7:00 PM EST 05/14/2024 7:37 AM EST us Dmitri Arzola MD LAB - NO BLOOD DRAW Final Resul t Performing Organization Address [facility] Co de Phone Number [facility] [address] [place] [id number], [employer] [address] [address] * (ABNORMAL) HEMOGLOBIN GLYCOSYLATED A1C (02/03/2024 9:40 AM EDT) HEMOGLOBIN A1C 7.3(H) <5.7 % of total Hgb [facility] Comment: For someone without known diabetes, a hemoglobin A1c value of 6.5% or greater indicates that they may have diabetes and this should be confirmed with a follow-up test. For someone with known diabetes, a value <7% indicates that their diabetes is well controlled and a value greater than or equal to 7% indicates suboptimal control. A1c targets should be individualized based on duration of diabetes, age, comorbid conditions, and other considerations. Currently, no consensus exists regarding use of hemoglobin A1c for diagnosis of diabetes for children. ?? Blood Blood / Unknown 02/03/2024 9 :40 AM EDT 02/03/2024 9:41 AM EDT Narrative [facility] - 02/04/2024 5:34 AM EDT FASTING:NO COLLECTION KIT GIVEN TO PATIENT. PATIENT ADVISED TO RETURN. us Dmitri Arzola MD LAB - BLOOD DRAW Final Result Performing Organization Address [facility] Co de Phone Number [facility] [address] [place] [phone], [employer] [facility] [address] [place] [phone] * (ABNORMAL) LIPID PANEL (04/11/2023 9:10 AM EST) CHOLESTEROL, TOTAL 138 <200 mg/dL [facility] HDL CHOLESTEROL 39(L) > OR = 40 mg/dL [facility] TRIGLYCERIDES 164(H) <150 mg/dL [facility] LDL-CHOLESTEROL 75 99 mg/dL (calc) [facility] Comment: Reference range: <100 Desirable range <100 mg/dL for primary prevention; ?? <70 mg/dL for patients with CHD or diabetic patients with > or = 2 CHD risk factors. LDL-C is now calculated using the Jennifer calculation, which is a validated novel method providing better accuracy than the Friedewald equation in the estimation of LDL-C. Nick SS et al. RONALD. 2013;310(94): 5916-1406 (http://education.SpotlessCity/faq/MBU658) CHOL/HDLC RATIO 3.5 <5.0 (calc) [facility] NON-HDL CHOLESTEROL 99 <130 mg/dL (calc) [facility] Comment: For patients with diabetes plus 1 major ASCVD risk factor, treating to a non-HDL-C goal of <100 mg/dL (LDL-C of <70 mg/dL) is considered a therapeutic option. Blood Blood / Unknown 04/11/2023 9 :10 AM EST 04/11/2023 9:11 AM EST Narrative [facility] - 04/12/2023 7:44 AM EST FASTING:NO Dmitri Arzola MD LAB - BLOOD DRAW Final Result [facility] [address] [place] [id number], [facility] [address] [place] [phone] * (ABNORMAL) COMPREHENSIVE METABOLIC PANEL (04/11/2023 9:10 AM EST) GLUCOSE 134 65 - 139 mg/dL [facility] Comment: ?Non-fasting reference interval UREA NITROGEN (BUN) 15 7 - 25 mg/dL [facility] CREATININE (blood) 1.03 0.70 - 1.30 mg/dL [facility] EGFR 84 > OR = 60 mL/min/1. 73m2 [facility] BUN/CREATININE RATIO SEE NOTE: [facility] Comment: ?? Not Reported: BUN and Creatinine are within ?? reference range. ? SODIUM 136 135 - 146 mmol/L [employer] [facility] POTASSIUM 4.4 3.5 - 5.3 mmol/L [employer] [facility] CHLORIDE 101 98 - 110 mmol/L [employer] [facility] CARBON DIOXIDE 26 20 - 32 mmol/L [employer] [facility] CALCIUM 9.6 8.6 - 10.3 mg/dL [employer] [facility] PROTEIN, TOTAL 6.9 6.1 - 8.1 g/dL [employer] [facility] ALBUMIN 4.6 3.6 - 5.1 g/dL [employer] [facility] GLOBULIN 2.3 1.9 - 3.7 g/dL (calc) [employer] [facility] ALBUMIN/GLOBULI N RATIO 2.0 1.0 - 2.5 (calc) [employer] [facility] BILIRUBIN, TOTAL 0.5 0.2 - 1.2 mg/dL [employer] [facility] ALKALINE PHOSPHATASE 88 35 - 144 U/L [employer] [facility] AST 19 10 - 35 U/L [employer] [facility] ALT 49(H) 9 - 46 U/L [employer] [facility] Blood Blood / Unknown 04/11/2023 9 :10 AM EST 04/11/2023 9:11 AM EST Narrative [facility] - 04/12/2023 7:44 AM EST FASTING:NO Dmitri Arzola MD LAB - BLOOD DRAW Edited Result - Final [facility] [address] [address], [email or web address] [address] [phone] * HEPATITIS A,B,C PANEL (05/08/2019 9:55 AM EST) HEPATITIS B SURFACE ANTIBODY NEGATIVE NEGATIVE [facility] HEPATITIS B SURFACE ANTIGEN NEGATIVE NEGATIVE [facility] Comment: Over the counter supplements containing high doses of biotin may interfere with this assay. ??If interference is suspected, patients shoud be retested after refraining from biotin supplements for 72 hours. HEPATITIS C VIRUS DIAGNOSTIC NEGATIVE NEGATIVE [facility] HEPATITIS A ANTIBODY TOTAL NEGATIVE NEGATIVE [facility] Comment: Over the counter supplements containing high doses of biotin may interfere with this assay. ??If interference is suspected, patients shoud be retested after refraining from biotin supplements for 72 hours. HEPATITIS B CORE ANTIBODY NEGATIVE NEGATIVE [facility] Blood specimen (specimen) Blood / Unknown 05/08/2019 9:55 AM EST 05/08/2019 10:21 AM EST [facility] - 05/08/2019 1:59 PM EST [employer] [address] Multiple Drum Sander - Roslyn Live MD PT ID [id number] ORD# [id number] Lena VILLASEÑOR LAB - BLOOD DRAW Edited Res ult - Final Performing Organization Address [facility] [place] [address], [place] [phone] * HIV-1 & HIV-2 ANTIBODIES (05/08/2019 9:55 AM EST) [facility] HIV 1 AND 2 ANTIBODY SCREEN NONREACTIVE NONREACTIVE [facility] Comment: HIV testing performed at reference lab due to reagent backorder. Test performed at: [facility] [address] [place] [address] Juan Carlos Martinez MD- Multiple [employer] Blood specimen (specimen) Blood / Unknown 05/08/2019 9:55 AM EST 05/08/2019 10:21 AM EST [facility] - 05/13/2019 2:51 PM EST [employer] [address] Multiple [employer] - Roslyn Live MD PT ID [id number] ORD# [id number] Lena VILLASEÑOR LAB - BLOOD DRAW Final Resu lt Performing Organization Address [facility] Co de Phone Number [facility] [place] [address], [place] [phone] from Last 3 Months or Most Recently Relevant to Health Maintenance Insurance [id number] Care Teams Bill Poster Installer Relationship Specialty Start Date End Date Dmitri Arzola MD [address] [place] [address] PCP - General Internal Medicine 05/05/19
[2024-06-06 08:57] LABS: MANUAL DIFF FLAG NO
[2024-06-06 08:58] LABS: Basophils Percent Auto 0.8 % (0-2); Eosinophils Absolute Auto 0.1 X10*3/uL (0.0-0.4); Eosinophils Percent Auto 1.4 % (0-4); Hematocrit 28.6 % (42.0-52.0); Hemoglobin 9.8 g/dl (14.0-18.0); Imm Gran Abs Auto 0.01 X10*3/uL (0.00-0.03); Imm Gran Pct Auto 0.2 % (0.0-0.4); Lymphocytes Percent Auto 38.9 % (20-40); Mean Corpuscular HGB Conc 34.3 g/dl (31.0-36.0); Mean Corpuscular Hemoglobin 28.3 pg (27.0-33.0); Mean Corpuscular Volume 82.7 fL (80.0-98.0); Mean Platelet Volume 8.5 fL (9.4-12.4); Monocytes Absolute Auto 0.5 X10*3/uL (0.1-1.2); Monocytes Percent Auto 9.3 % (2-11); Neutrophils Absolute Auto 2.5 x10*3/uL (2.0-8.3); Neutrophils Percent Auto 49.4 % (45-73); Platelet Count 300 X10*3/uL (160-400); Red Blood Count 3.46 X10*6/uL (4.60-5.80); Red Cell Distribution Width 13.3 % (11.0-16.0); White Blood Count 5.1 X10*3/uL (4.8-10.8)
[2024-06-06 09:21] LABS: Alanine Aminotransferase 28 U/L (0-40); Albumin Level 3.9 g/dL (3.5-5.0); Anion Gap 19 (12-20); Aspartate Amino Transferase 20 U/L (5-37); Bilirubin Direct 0.2 mg/dL (0.0-0.5); Bilirubin Total 0.4 mg/dL (0.0-1.0); Blood Urea Nitrogen 72 mg/dL (9-16); C Reactive Protein 2.04 mg/dL (< or = 0.50); Calcium 8.7 mg/dL (8.4-10.2); Carbon Dioxide 18 mmol/L (22-29); Chloride 104 mmol/L (96-108); Creatinine Clr Calc Pharmacy 20.6; Estimated Glomerular Filt Rate 16; Glucose Random 121 mg/dL (60-115); Magnesium 1.7 mg/dL (1.6-2.6); Potassium 3.7 mmol/L (3.3-5.1); Sodium 137 mmol/L (135-145); Total Protein 7.2 g/dL (6.5-8.0)
[2024-06-06 09:37] LABS: Alkaline Phosphatase 91 U/L (39-117)
[2024-06-06 09:49] VITALS: BP 136/72; PULSE 96; RESP 18; TEMP 36.2; O2SAT 98
[2024-06-06 09:51] VITALS: BP 136/72; PULSE 62; RESP 18; TEMP 36.2; O2SAT 98
== END 2024-06-06 09:52 | disposition home or self-care (01) ==
PROVIDERS: Emergency Provider Emergency Medicine
DX: T78.3XXA Angioneurotic edema, initial encounter (principal); T46.4X5A Adverse effect of angiotensin-converting-enzyme inhibitors, initial encounter; Y92.9 Unspecified place or not applicable
CPT/HCPCS: 36415; 80048; 80076; 83735; 85025; 86140; 99283; 99284

== ENCOUNTER 2024-06-08 07:06 | Outpatient (REF) | payer MEDICAID, SELFPAY ==
[2024-06-08 08:08] LABS: Anion Gap 13 (12-20); Blood Urea Nitrogen 42 mg/dL (9-16); Calcium 9.1 mg/dL (8.4-10.2); Carbon Dioxide 25 mmol/L (22-29); Chloride 105 mmol/L (96-108); Estimated Glomerular Filt Rate 19; Glucose Random 109 mg/dL (60-115); Phosphorus 2.6 mg/dL (2.7-4.5); Potassium 3.7 mmol/L (3.3-5.1); Sodium 139 mmol/L (135-145)
== END 2024-06-08 07:07 | disposition home or self-care (01) ==
LOC: HO.LAB 07:06
PROVIDERS: Student in an Organized Health Care Education/Training Program; PCP Internal Medicine; Visit Provider Internal Medicine Nephrology
DX: I10 Essential (primary) hypertension (principal); N17.9 Acute kidney failure, unspecified; R22.1 Localized swelling, mass and lump, neck; R80.8 Other proteinuria; F17.200 Nicotine dependence, unspecified, uncomplicated; E11.9 Type 2 diabetes mellitus without complications
CPT/HCPCS: 36415; 80048; 84100; 99212

== ENCOUNTER 2024-06-08 15:57 | Outpatient (AMB) | payer MEDICAID, SELFPAY ==
--- NOTE | 2024-06-08 16:08 | HO.NEPHOV ---
Vital Signs 06/08/24 16:11 Height 5 ft 10 in Weight 187 lb 6 oz BMI 26.9 BP 180/80 H Blood Pressure Location Lt brachial Position Sitting Pulse 116 H Pulse Source Pulse Oximeter Pulse Oximetry (%) 97 Oxygen Delivery Method Room Air Intake Visit Reasons: [facility] [place] [facility] Sap Portal Developer Required: No Accompanied by: Significant Other Allergies lisinopril Allergy (Verified 06/08/24 16:11) Facial Swelling HPI Comments Details: 59-year-old male with history of diabetes, hypertension who recently was admitted and treated for Acute renal failure with acute metabolic acidosis requiring acute hemodialysis which seems to be related more to ATN . He has significant improvement in his urine output and his serum creatinine has been steadily improving. Permacath was placed on 06/02/24 & his last inpatient HD session on 06/03/24. He presented to ER with facial swelling and lip swelling which was thought to be angioedema from ACEI. He comes to office this afternoon with difficulty turning his neck as well as right sided neck swelling. He denied any SOB or hemoptysis. [facility] Medical History HLD (hyperlipidemia) Non-insulin dependent type 2 diabetes mellitus Asthma Hypertension Social History Household Members: Family Housing: Apartment Do you presently have visiting nurse or other home services: No Alcohol intake: former Patient Tobacco Use Status: Current someday Tobacco user Tobacco use type: Cigarette Cigarette Packs Per Day: 1 Cigarettes Per Day: 9 e-Cigarette/Vaping Use: Never Used Second Hand Smoke Exposure: No service: No Current occupational status: employed Review of Systems Const All systems reviewed & are unremarkable except as noted in HPI and below Physical Exam Vital Signs: Last Vital Signs Pulse 116 H 06/08/24 16:11 BP 180/80 H 06/08/24 16:11 Pulse Ox 97 06/08/24 16:11 Oxygen Delivery Method Room Air 06/08/24 16:11 BMI result Body Mass Index 26.9 Const General: comfortable and no acute distress Orientation/consciousness: patient oriented x3 HEENT Head: Yes normocephalic Mouth: Normal oral and palatal mucosa present Eyes EOM: EOMs intact bilaterally Neck Other: Right sided neck swelling + Resp Auscultation: clear to auscultation bilaterally Cardio Jugular venous distension: no JVD Rate: regular rate GI Palpation (GI): Soft to palpation Auscultation: normal bowel sounds General: Yes no CVA tenderness Back/Spine/Pelvis Back: no CVA tenderness Skin General skin exam: no rashes or lesions noted Neuro General: patient oriented x3 and moves all extremities Extrem General: Yes no pedal edema Results Reviewed Nephrology Results: Hgb 9.8 g/dl (14.0-18.0) L 06/06/24 WBC 5.1 X10*3/uL (4.8-10.8) 06/06/24 Plt Count 300 X10*3/uL (160-400) 06/06/24 Sodium 139 mmol/L (135-145) 06/08/24 Potassium 3.7 mmol/L (3.3-5.1) 06/08/24 Chloride 105 mmol/L (96-108) 06/08/24 Carbon Dioxide 25 mmol/L (22-29) 06/08/24 BUN 42 mg/dL (9-16) H 06/08/24 Creatinine 3.28 mg/dL (0.5-1.4) H 06/08/24 Calcium 9.1 mg/dL (8.4-10.2) 06/08/24 Phosphorus 2.6 mg/dL (2.7-4.5) L 06/08/24 Urine Protein 300 (3+) mg/dL (Neg-Trace) H 05/22/24 Urine Creatinine 64.60 mg/dL 06/01/24 Renal US 05/21/24 Assessment & Plan Assessment & Plan (1) RAMONITA (acute kidney injury): Code(s): N17.9 - Acute kidney failure, unspecified Category: Medical (2) Hypertension: Code(s): I10 - Essential (primary) hypertension Category: Medical Qualifiers: Hypertension type: primary hypertension Qualified Code(s): I10 - Essential (primary) hypertension (3) Neck swelling: Code(s): R22.1 - Localized swelling, mass and lump, neck Category: Medical (4) Proteinuria: Code(s): R80.9 - Proteinuria, unspecified Category: Medical Qualifiers: Proteinuria type: other Qualified Code(s): R80.8 - Other proteinuria Plan RAMONITA due to ATN ( S/P renal biopsy)- recovering Urine output good; Needs to R/O DVT of neck No further HD ; Permcath to be taken out ACEI on hold. Patient sent to ER for evaluation Shall arrange office F/U with me soon Orders: Orders Blood Urea Nitrogen Today N17.9 - Acute kidney failure, unspecified Calcium Today N17.9 - Acute kidney failure, unspecified Phosphorus Today N17.9 - Acute kidney failure, unspecified Creatinine Today N17.9 - Acute kidney failure, unspecified Electrolytes Today N17.9 - Acute kidney failure, unspecified Coding Level of Care Code Est Pt Level 4 (11085) Diagnoses RAMONITA (acute kidney injury) N17.9 Primary hypertension I10 Hypertension type: primary hypertension Neck swelling R22.1 Other proteinuria R80.8 Proteinuria type: other
[2024-06-08 16:11] VITALS: BP 180/80; PULSE 116; O2SAT 97; BMI 26.9
== END 2024-06-08 16:23 | disposition home or self-care (01) ==
PROVIDERS: PCP Internal Medicine; Visit Provider Internal Medicine Nephrology
DX: N17.9 Acute kidney failure, unspecified (principal); I10 Essential (primary) hypertension; R22.1 Localized swelling, mass and lump, neck; R80.8 Other proteinuria
CPT/HCPCS: 99215

== ENCOUNTER 2024-06-08 16:29 | Emergency (ER) | payer MEDICAID, SELFPAY ==
[2024-06-08 17:35] VITALS: BP 208/93; PULSE 112; RESP 18; TEMP 37.2; O2SAT 98; BMI 26.8
--- NOTE | 2024-06-08 17:38 | ED.GENADULT ---
HPI - General Adult General Chief complaint: General Medical Stated complaint: Blood clot? Sent by clinic Related Data Home Medications ?Medication ?Instructions ?Recorded ?Confirmed multivitamin 1 tab PO DAILY 09/19/22 06/09/24 omeprazole 20 mg capsule,delayed 40 mg PO DAILY@0630 09/19/22 06/09/24 release metformin 500 mg tablet 500 mg PO BID 05/19/24 06/09/24 umeclidinium 62.5 mcg-vilanterol 1 inh inhalation DAILY 05/19/24 06/09/24 25 mcg/actuation powdr for inhalation (Anoro Ellipta) Previous Rx's ?Medication ?Instructions ?Recorded aspirin 81 mg chewable tablet 81 mg PO DAILY #30 tabs 09/21/22 atorvastatin 80 mg tablet 80 mg PO DAILY #30 tabs 09/21/22 amlodipine 10 mg tablet 10 mg PO DAILY #90 tabs 06/03/24 hydralazine 50 mg tablet 50 mg PO TID #270 tabs 06/03/24 tamsulosin 0.4 mg capsule 0.8 mg (2 x 0.4 mg) PO BEDTIME 06/03/24 #180 caps apixaban 5 mg tablet (Eliquis) 10 mg (2 x 5 mg) PO BID #70 tabs 06/10/24 Allergies Allergy/AdvReac Type Severity Reaction Status Date / Time lisinopril Allergy Facial Verified 06/24/24 12:26 Swelling PMFSH Past Medical History Medical History (Updated 07/07/24 @ 18:05 by Fabrice Guadarrama) Hypertension RAMONITA (acute kidney injury) Uncontrolled hypertension ESRD needing dialysis HLD (hyperlipidemia) Non-insulin dependent type 2 diabetes mellitus Asthma Social History Social History Household Members: Family Housing: Apartment Do you presently have visiting nurse or other home services: No Alcohol intake: former Patient Tobacco Use Status: Current someday Tobacco user Tobacco use type: Cigarette Cigarette Packs Per Day: 1 Cigarettes Per Day: 9 e-Cigarette/Vaping Use: Never Used Second Hand Smoke Exposure: No service: No Current occupational status: employed Physical Exam ED Vital Signs: BMI result Body Mass Index 26.8 Discharge Plan Discharge Clinical Impression: Neck swelling Patient Disposition: Left W/O Completing Treatment Prescriptions: No Action multivitamin Tablet 1 tab PO DAILY omeprazole 20 mg Capsule,Delayed Release(Dr/Ec) 40 mg PO DAILY@0630 atorvastatin 80 mg Tablet 80 mg PO DAILY Qty: 30 3RF aspirin 81 mg Tablet,Chewable 81 mg PO DAILY Qty: 30 3RF metformin 500 mg tablet 500 mg PO BID Anoro Ellipta 62.5-25 mcg/actuation Blister With Device 1 inh INHALATION DAILY tamsulosin 0.4 mg Capsule 0.8 mg PO BEDTIME Qty: 180 0RF amlodipine 10 mg Tablet 10 mg PO DAILY Qty: 90 0RF Protocol: Hold for SBP< HOLD for SBP < : 90 hydralazine 50 mg Tablet 50 mg PO TID Qty: 270 0RF Protocol: Hold for SBP< HOLD for SBP < : 90 Eliquis 5 mg tablet 10 mg PO BID Qty: 70 0RF Rx Instructions: Take 10 mg twice daily for 7 days then 5 mg twice daily Discharge Date/Time: 06/08/24 22:50
--- NOTE | 2024-06-08 17:51 | ECG_ITS ---
Test Reason : TACHY Blood Pressure : */* mmHG Vent. Rate : 99 BPM Atrial Rate : 99 BPM P-R Int : 140 ms QRS Dur : 92 ms QT Int : 344 ms P-R-T Axes : 57 -36 51 degrees QTcB Int : 441 ms Normal sinus rhythm Left axis deviation Incomplete right bundle branch block Abnormal ECG When compared with ECG of 19-May-2024 09:14, Nonspecific T wave abnormality no longer evident in Lateral leads Referred By: Fabrice Guadarrama Electronically Signed By: IAN ENGLISH MD
--- OUTSIDE RECORDS SUMMARY | 2024-06-08 19:50 | XMS_ITS | Clinical Summary ---
Author Organization [facility] Address [address] [place] [address] Care Team Providers Care Client Solutions Director Name Role Phone Dmitri Arzola MD Primary [...] complication, without long-term current use of insulin ([facility]) Pt is Diabetic . E11.9 1 Each 07/11/19 24 Active alcohol swabsIndications:T ype 2 diabetes mellitus without complication, without long-term current use of insulin ([facility]) Pt is Diabetic . E11.9 once a day 100 Each 1 07/11/19 24 Active lancets (FREESTYLE LANCETS) 28 gaugeIndications:T ype 2 diabetes mellitus without complication, without long-term current use of insulin ([facility]) Pt is Diabetic . E11.9 check once a day 100 Each 1 07/11/19 24 Active blood sugar diagnostic (FREESTYLE TEST) stripsIndications: Type 2 diabetes mellitus without complication, without long-term current use of insulin ([facility]) USE TO TEST ONCE A DAY [...] to occlusion of left anterior cerebral artery ([facility]),Mixed hyperlipidemia TAKE 1 TABLET BY MOUTH EVERY DAY 90 Tablet 1 03/06/20 24 Active lisinopriL 10 mg tabletIndications: Cerebrovascular accident (CVA) due to occlusion of left anterior cerebral artery ([facility]),[facility] l hypertension TAKE 1 TABLET BY MOUTH EVERY DAY 90 Tablet 1 03/16/20 24 Active metFORMIN (GLUCOPHAGE) 500 mg tabletIndications: Controlled type 2 diabetes mellitus without complication, without long-term current use of insulin ([facility]) TAKE 1 TABLET BY MOUTH TWICE A DAY WITH A MEAL 180 Tablet 05/04/19 25 Active Active Problems Problem Noted Date Diagnosed Date Food insecurity 04/16/2024 Financial difficulties 04/16/2024 Cerebrovascular accident (CV A) due to occlusion of left anterior cerebral artery ([facility]) 09/26/2022 Overview (09/26/2022): Admitted [facility]- Admitted 09/21/22 and Woke up in middle [...] melly, without long-term current use of insulin ([facility]) 01/04/2015 Lump 10/28/2014 Overview (10/28/2014): R [...] Description 04/16/2024 9:00 AM EST Office Visit [address] [phone] Ysabel Ash Food insecurity (Primary [...] 1 04/16/2024 Safety and Environment Answer Date Buddy rded Safety 0 12/21/2018 Utilities Answer Date [...] 05/2022, 10/04/2016 Imm-Hepatitis B Completed 04/11/2023, 09/28/2022 [id number] Completed 01/08/2024, 03/29, 09/28/2022, Additional history exists [...] complication, without long-term current use of insulin ([facility]) FECAL GLOBIN BY IMMUNOCHEMISTRY (FIT) Routine 05/10/2024 7:00 PM EST Screen for colon cancer HEMOGLOBIN GLYCOSYLATED A1C Routine 02/03/2024 9:40 AM EDT Type 2 diabetes mellitus without complication, without long-term current use of insulin ([facility]) COMPREHENSIVE METABOLIC PANEL Routine 04/11/2023 9:10 AM EST Routine general medical examination at a health care facility Primary hypertension Prediabetes Mixed hyperlipidemia Gastroesophageal reflux disease without esophagitis LIPID PANEL Routine 04/11/2023 9:10 AM EST Routine general medical examination at a health care facility Primary hypertension Mixed hyperlipidemia Cerebrovascular accident (CVA) due to occlusion of left anterior cerebral artery ([facility]) ANTIBODY HIV-1&HIV-2 SINGLE RESULT Routine 05/08/2019 9:55 [...] 3:00 AM EST) Only the most recent of14 resultswithin the time period is included. 05/19/2024 3:00 AM EST us Dmitri Arzola MD SCAN IMAGING Final Result * MICROALBUMIN/CREATININE RATIO, URINE, RANDOM (05/12/2024 8:40 AM EST) CREATININE, RANDOM URINE 125 20 - 320 mg/dL [employer] MICROALBUMIN 1.3 mg/dL [facility] Comment: Reference Range Not established MICROALBUMIN/CREA TININE RATIO, RANDOM URINE 10 <30 mg/g creat [employer] Comment: The ADA defines abnormalities in albumin [...] AM EST 05/12/2024 8:40 AM EST Narrative [facility] - 05/14/2024 6:43 PM EST SPLIT 02/03/2024 FROM [id number] us Dmitri Arzola MD LAB - NO BLOOD DRAW Final Resul t [facility] [address] [place] [id number], [employer] [address] [place] [phone] * FECAL GLOBIN BY IMMUNOCHEMISTRY (FIT) (05/10/2024 7:00 PM EST) FECAL GLOBIN BY IMMUNOCHEMISTRY See Note [employer] Comment: ??FECAL GLOBIN BY IMMUNOCHEMISTRY ?Micro Number: ?[id number] ??Test Status: ? Final ??Specimen Source: ?? Insure (tm) fobt test card ??Specimen Quality: ??Adequate ??Fecal Globin: ?Not Detected Stool Stool specimen / Unknown 05/10/2024 7:00 PM EST 05/14/2024 7:37 AM EST Dmitri Arzola MD LAB - NO BLOOD DRAW Final Resul t Performing Organization Address [facility] de Phone Number [facility] [address] [place] [phone], [employer] [address] [place] [phone] * (ABNORMAL) HEMOGLOBIN GLYCOSYLATED A1C (02/03/2024 9:40 AM EDT) HEMOGLOBIN A1C 7.3(H) <5.7 % of total Hgb [employer] Comment: For someone without known diabetes, a [...] AM EDT 02/03/2024 9:41 AM EDT Narrative [facility] - 02/04/2024 5:34 AM EDT FASTING:NO COLLECTION KIT GIVEN TO PATIENT. PATIENT ADVISED TO RETURN. us Dmitri Arzola MD LAB - BLOOD DRAW Final Result Performing Organization Address [facility] Co de Phone Number [facility] [address] [place] [phone], [employer] [address] [place] [phone] * (ABNORMAL) LIPID PANEL (04/11/2023 9:10 AM EST) CHOLESTEROL, TOTAL 138 <200 mg/dL [facility] HDL CHOLESTEROL 39(L) > OR = 40 mg/dL [facility] TRIGLYCERIDES 164(H) <150 mg/dL [facility] LDL-CHOLESTEROL 75 99 mg/dL (calc) [facility] Comment: Reference range: <100 Desirable range <100 mg/dL for primary prevention; ?? <70 mg/dL for patients with CHD or diabetic patients with > or = 2 CHD risk factors. LDL-C is now calculated using the Jennifer calculation, which is a validated novel method providing better accuracy than the Friedewald equation in the estimation of LDL-C. Nick SS et al. RONALD. 2013;310(19): 3201-3079 (http://education.Collusion/faq/HDJ441) CHOL/HDLC RATIO 3.5 <5.0 (calc) [facility] NON-HDL CHOLESTEROL 99 <130 mg/dL (calc) [facility] Comment: For patients with diabetes plus 1 major ASCVD risk factor, treating to a non-HDL-C goal of <100 mg/dL (LDL-C of <70 mg/dL) is considered a therapeutic option. Blood Blood / Unknown 04/11/2023 9 :10 AM EST 04/11/2023 9:11 AM EST Narrative [facility] - 04/12/2023 7:44 AM EST FASTING:NO Dmitri Arzola MD LAB - BLOOD DRAW Final Result [facility] [address] [address], [facility] [address] [place] [phone] * (ABNORMAL) COMPREHENSIVE METABOLIC PANEL (04/11/2023 9:10 AM EST) Pathologist [facility] GLUCOSE 134 65 - 139 mg/dL [facility] Comment: ?Non-fasting reference interval UREA NITROGEN (BUN) 15 7 - 25 mg/dL [facility] CREATININE (blood) 1.03 0.70 - 1.30 mg/dL [facility] EGFR 84 > OR = 60 mL/min/1. 73m2 [facility] BUN/CREATININE RATIO SEE NOTE: [facility] Comment: ?? Not Reported: BUN and Creatinine are within ?? reference range. ? SODIUM 136 135 - 146 mmol/L [facility] POTASSIUM 4.4 3.5 - 5.3 mmol/L [facility] CHLORIDE 101 98 - 110 mmol/L [facility] CARBON DIOXIDE 26 20 - 32 mmol/L [facility] CALCIUM 9.6 8.6 - 10.3 mg/dL [facility] PROTEIN, TOTAL 6.9 6.1 - 8.1 g/dL [facility] ALBUMIN 4.6 3.6 - 5.1 g/dL [facility] GLOBULIN 2.3 1.9 - 3.7 g/dL (calc) [facility] ALBUMIN/GLOBULI N RATIO 2.0 1.0 - 2.5 (calc) [facility] BILIRUBIN, TOTAL 0.5 0.2 - 1.2 mg/dL [facility] ALKALINE PHOSPHATASE 88 35 - 144 U/L [facility] AST 19 10 - 35 U/L [facility] ALT 49(H) 9 - 46 U/L [facility] Blood Blood / Unknown 04/11/2023 9 :10 AM EST 04/11/2023 9:11 AM EST Narrative [facility] - 04/12/2023 7:44 AM EST FASTING:NO us Dmitri Arzola MD LAB - BLOOD DRAW Edited Result - Final [facility] [address] [address], [facility] [address] [place] [phone] * HEPATITIS A,B,C PANEL (05/08/2019 9:55 AM EST) HEPATITIS B SURFACE ANTIBODY NEGATIVE NEGATIVE [facility] HEPATITIS B SURFACE ANTIGEN NEGATIVE NEGATIVE [facility] Comment: Over the counter supplements containing high doses of biotin may interfere with this assay. ??If interference is suspected, patients shoud be retested after refraining from biotin supplements for 72 hours. HEPATITIS C VIRUS DIAGNOSTIC NEGATIVE NEGATIVE [facility] HEPATITIS A ANTIBODY TOTAL NEGATIVE NEGATIVE [facility] Comment: Over the counter supplements containing high doses of biotin may interfere with this assay. ??If interference is suspected, patients shoud be retested after refraining from biotin supplements for 72 hours. HEPATITIS B CORE ANTIBODY NEGATIVE NEGATIVE [facility] Blood specimen (specimen) Blood / Unknown 05/08/2019 9:55 AM EST 05/08/2019 10:21 AM EST Narrative [facility] - 05/08/2019 1:59 PM EST [employer], [place] [address] Supervisor [employer] - Roslyn Live MD PT ID [id number] ORD# [id number] Lena VILLASEÑOR LAB - BLOOD DRAW Edited Res ult - Final Performing Organization Address City/[facility] Phone Number [address] [phone], * HIV-1 & HIV-2 ANTIBODIES (05/08/2019 9:55 AM EST) [facility] HIV 1 AND 2 ANTIBODY SCREEN NONREACTIVE NONREACTIVE [facility] Comment: HIV testing performed at reference lab due to reagent backorder. Test performed at: [facility] [address] [place] [address] Juan Carlos Martinez MD- Supervisor [employer] Blood specimen (specimen) Blood / Unknown 05/08/2019 9:55 AM EST 05/08/2019 10:21 AM EST Narrative [facility] 05/13/2019 2:51 PM EST [employer], [place] [address] Supervisor [employer] MD PT ID [id number] ORD# [id number] Lena VILLASEÑOR LAB - BLOOD DRAW Final Resu lt [facility] [address] [place] [address], from Last 3 Months or Most Recently Relevant to Health Maintenance Insurance [id number] Care Teams Client Solutions Director Relationship Specialty Start Date End Date Dmitri Arzola MD [address] [place] [address] PCP - General Internal Medicine 05/05/19
== END 2024-06-08 22:50 | disposition left against medical advice (07) ==
PROVIDERS: Emergency Provider Emergency Medicine; PCP Internal Medicine
DX: R22.1 Localized swelling, mass and lump, neck (principal)
CPT/HCPCS: 93005; 99283

== ENCOUNTER → 2024-06-08 17:51 | Outpatient (BNV) | payer MEDICAID, SELFPAY | PROVIDERS: Emergency Provider Emergency Medicine; PCP Internal Medicine; Visit Provider Internal Medicine Cardiovascular Disease | DX: R94.31 Abnormal electrocardiogram [ECG] [EKG] (principal) | CPT/HCPCS: 93010 ==

== ENCOUNTER 2024-06-09 07:19 | Inpatient (IN) | payer MEDICAID, SELFPAY ==
[2024-06-09] VITALS (8 sets, daily range): BP systolic 144–236; BP diastolic 70–111; PULSE 88–107; RESP 16–20; TEMP 36.3–37.3; O2SAT 95–98; BMI 27.0; BMI 26.7
--- NOTE | ~2024-06-09 | US_ITS ---
CLINICAL HISTORY: ? DVT ,? DVT I J, NECK PAIN Venous duplex ultrasound right upper extremity Comparison: None Findings: There is thrombus within the right IJ vein. deep venous segments are fully compressible with normal Doppler color flow and spectral tracings. Incidental nonocclusive thrombus within a short segment of the cephalic vein. IMPRESSION: The study is positive for deep vein thrombosis within the right IJ vein. This document has been electronically signed by: Abdelrahman Levy MD on 06/09/2024 11:55:22
--- NOTE | 2024-06-09 09:01 | ED.GENADULT ---
HPI - General Adult General Chief complaint: General Medical Stated complaint: Sent by Dr Deisy hinds? Time Seen by Provider: 06/09/24 08:48 Source: patient Mode of arrival: ambulatory Limitations: no limitations History of Present Illness HPI narrative: This is a 59 years old the patient with chronic kidney disease sent by the personal development coach who to [facility] to rule out DVT of the right IJ. He denies any fever chills he is complaining of pain in the right neck denies any fever chills vomiting. Onset (ago): day(s) (2) Location: neck (Right neck) Radiation: non-radiation Severity: moderate Quality: burning Pain Consistency: constant Relieving factors: none Exacerbating factors: none Associated symptoms: denies other symptoms Related Data Home Medications ?Medication ?Instructions ?Recorded ?Confirmed multivitamin 1 tab PO DAILY 09/19/22 06/09/24 omeprazole 20 mg capsule,delayed 40 mg PO DAILY@0630 09/19/22 06/09/24 release metformin 500 mg tablet 500 mg PO BID 05/19/24 06/09/24 umeclidinium 62.5 mcg-vilanterol 1 inh inhalation DAILY 05/19/24 06/09/24 25 mcg/actuation powdr for inhalation (Anoro Ellipta) Previous Rx's ?Medication ?Instructions ?Recorded aspirin 81 mg chewable tablet 81 mg PO DAILY #30 tabs 09/21/22 atorvastatin 80 mg tablet 80 mg PO DAILY #30 tabs 09/21/22 amlodipine 10 mg tablet 10 mg PO DAILY #90 tabs 06/03/24 hydralazine 50 mg tablet 50 mg PO TID #270 tabs 06/03/24 tamsulosin 0.4 mg capsule 0.8 mg (2 x 0.4 mg) PO BEDTIME 06/03/24 #180 caps Allergies Allergy/AdvReac Type Severity Reaction Status Date / Time lisinopril Allergy Facial Verified 06/09/24 07:32 Swelling Review of Systems Constitutional: Constitutional: Reports no additional constitutional complaints Cardiovascular: Cardiovascular: Reports no additional cardiovascular complaints Respiratory: Respiratory: Reports no additional respiratory complaints [facility] Past Medical History [facility] Narrative: Chronic renal insufficiency type 2 diabetes hypertension Medical History HLD (hyperlipidemia) Non-insulin dependent type 2 diabetes mellitus Asthma Hypertension Social History Social History Household Members: Family Housing: Apartment Do you presently have visiting nurse or other home services: No Alcohol intake: former Patient Tobacco Use Status: Current someday Tobacco user Tobacco use type: Cigarette Cigarette Packs Per Day: 1 Cigarettes Per Day: 9 Smoked in Last 30 Days: Yes e-Cigarette/Vaping Use: Never Used Second Hand Smoke Exposure: No Use of substances other than those prescribed or required for medical reasons: No Advance Directives: No Advance Directives Information Provided: Yes Do you have a plan to hurt others: No Plan service: No Current occupational status: employed Physical Exam ED Vital Signs: Vital Signs - 24 hr 06/09/24 07:30 06/09/24 09:33 06/09/24 10:40 Temperature 97.6 F Pulse Rate 107 H 92 Respiratory Rate 18 18 Blood Pressure 236/111 H 156/86 H 163/94 H Pulse Oximetry 97 95 Oxygen Delivery Method Room Air 06/09/24 11:32 Temperature 97.4 F Pulse Rate 88 Respiratory Rate 16 Blood Pressure 180/94 H Pulse Oximetry 98 Oxygen Delivery Method BMI result Body Mass Index 26.7 Not acute distress Const General: cooperative Nutritional Appearance: well nourished Orientation/consciousness: patient oriented x3 HENMT Head: Yes normal to inspection Mouth: Normal oral and palatal mucosa present Throat: Yes posterior oropharynx normal Neck Other: Right neck tenderness Neck: Yes normal visual inspection Chest Chest palpation & inspection: normal inspection of the chest Resp Effort & Inspection: normal respiratory effort Cardio Jugular venous distension: no JVD Palpation: normal PMI Rate: regular rate GI Inspection: Yes normal to inspection Palpation (GI): Soft to palpation Auscultation: normal bowel sounds General: Yes CVA tenderness and Yes no CVA tenderness Back/Spine/Pelvis Back: no CVA tenderness and CVA tenderness Skin General skin exam: no rashes or lesions noted Neuro General: patient oriented x3 Course Reevaluation(s) Reevaluation #1: Ultrasound showed a right IJ DVT, the PermCath we will need to be removed I consulted IR, also I spoke with Dr. Avina patient will be anticoagulated admitted to medicine Time: 12:15 Medications Administered Generic Name Dose Route Start Last Admin Trade Name Freq PRN Reason Stop Dose Admin Heparin Sodium/Sodium Chloride 25,000 unit in 250 mls @ 0 mls/hr 06/09/24 12:15 06/09/24 12:18 Heparin Sodium,Porcine/1/2ns IVCONT 14 units/kg/hr .Q0M ALEXIS 11.82 mls/hr Administration Protocol Per Protocol Discontinued Medications Generic Name Dose Route Start Last Admin Trade Name Freq PRN Reason Stop Dose Admin Amlodipine Besylate 10 mg 06/09/24 09:21 06/09/24 09:33 Amlodipine Besylate 10 Mg Tablet PO 06/09/24 09:22 10 mg ONCE ONE Administration Protocol Heparin Sodium (Porcine) 6,800 unit 06/09/24 11:52 06/09/24 12:16 Heparin Sodium,Porcine 5,000 Unit/Ml Vial 80 unit/kg (6800 unit) 06/09/24 11:53 6,800 unit IVPUSH Administration ONCE ONE Medical Decision Making Medical Decision Making [facility] Narrative: Patient was sent here by Nephrology to rule out DVT on the right neck (IJ) we will get labs ultrasound. I personally spoke with the personal development coach Dr. Serra Differential Diagnosis Differential Diagnoses: The differential diagnosis associated with the presentation includes DVT/musculoskeletal pain Admission/Observation Consideration of admission/observation: Escalation of care including admission/observation considered Consult Healthcare Provider Management of the patient was discussed with: Hospitalist and Wine Blender Dr Serra renal Lab Data [facility] Lab Attestation statement: I reviewed the patient's lab results. 06/09/24 09:14 06/09/24 09:14 Labs: Lab Results 06/09/24 06/09/24 Range/Units 09:14 10:13 WBC 6.5 (4.8-10.8) X10*3/uL RBC 3.51 L (4.60-5.80) X10*6/uL Hgb 9.9 L (14.0-18.0) g/dl Hct 29.4 L (42.0-52.0) % MCV 83.8 (80.0-98.0) fL MCH 28.2 (27.0-33.0) pg MCHC 33.7 (31.0-36.0) g/dl RDW 13.2 (11.0-16.0) % Plt Count 333 (160-400) X10*3/uL MPV 8.6 L (9.4-12.4) fL Immature Gran % (Auto) 0.5 H (0.0-0.4) % Neut % (Auto) 56.5 (45-73) % Lymph % (Auto) 29.5 (20-40) % Van Zandt % (Auto) 11.8 H (2-11) % Eos % (Auto) 1.4 (0-4) % Baso % (Auto) 0.3 (0-2) % Lymph # (Auto) 1.9 (1.2-4.9) X10*3/uL [place]t # (Auto) 0.8 (0.1-1.2) X10*3/uL Eos # (Auto) 0.1 (0.0-0.4) X10*3/uL Baso # (Auto) 0.0 (0.0-0.2) X10*3/uL Abs Immat Gran (auto) 0.03 (0.00-0.03) X10*3/uL Absolute Neuts (auto) 3.7 (2.0-8.3) x10*3/uL Absolute Nucleated RBC 0.000 (0.0-0.012) X10*3/uL Nucleated RBC % (auto) 0.0 (0.0-0.2) /100WBC PT 11.5 (10.9-12.4) SEC INR 1.0 (0.9-1.1) aPTT Heparin Protocol 30.1 L (53-77.9) SEC Sodium 139 (135-145) mmol/L Potassium 4.0 (3.3-5.1) mmol/L Chloride 107 (96-108) mmol/L Carbon Dioxide 22 (22-29) mmol/L Anion Gap 14 (12-20) BUN 46 H (9-16) mg/dL Creatinine 3.04 H (0.5-1.4) mg/dL Estim Creat Clear Calc 27.0 Estimated GFR 21 Random Glucose 110 (60-115) mg/dL Calcium 9.0 (8.4-10.2) mg/dL Total Bilirubin 0.5 (0.0-1.0) mg/dL AST 23 (5-37) U/L ALT 28 (0-40) U/L Alkaline Phosphatase 108 (39-117) U/L Total Protein 7.8 (6.5-8.0) g/dL Albumin 4.3 (3.5-5.0) g/dL Independent Interpretation I performed an independent interpretation of an: Ultrasound Interpretation: I personally review and interpreted the ultrasound of the upper extremity as a right IJ DVT Radiology Impression Discussion of test interpretation with radiology: I have reviewed the radiologist's reading. Radiologist Impression: CLINICAL HISTORY: ? DVT ,? DVT I J, NECK PAIN Venous duplex ultrasound right upper extremity Comparison: None Findings: There is thrombus within the right IJ vein. deep venous segments are fully compressible with normal Doppler color flow and spectral tracings. Incidental nonocclusive thrombus within a short segment of the cephalic vein. IMPRESSION: The study is positive for deep vein thrombosis within the right IJ vein. This document has been electronically signed by: Abdelrahman Levy MD on 06/09/2024 11:55:22 Independent Historian Clinical information obtained from an independent historian. History obtained from or confirmed by: Spouse External Record Review External record reviewed: Inpatient record Chronic Conditions Chronic renal failure Discharge Plan Discharge Clinical Impression: DVT (deep venous thrombosis) Qualifiers: DVT location: upper extremity Affected thrombotic vein of extremity: other upper extremity vein Chronicity: acute Laterality: right Qualified Code(s): I82.621 - Acute embolism and thrombosis of deep veins of right upper extremity Chronic renal failure Qualifiers: Chronic kidney disease stage: unspecified stage Qualified Code(s): N18.9 - Chronic kidney disease, unspecified Patient Disposition: Admitted As Inpatient Print Language: Slovak
[2024-06-09 09:21] LABS: MANUAL DIFF FLAG NO
[2024-06-09 09:22] LABS: Basophils Percent Auto 0.3 % (0-2); Eosinophils Absolute Auto 0.1 X10*3/uL (0.0-0.4); Eosinophils Percent Auto 1.4 % (0-4); Hematocrit 29.4 % (42.0-52.0); Hemoglobin 9.9 g/dl (14.0-18.0); Imm Gran Abs Auto 0.03 X10*3/uL (0.00-0.03); Imm Gran Pct Auto 0.5 % (0.0-0.4); Lymphocytes Absolute Auto 1.9 X10*3/uL (1.2-4.9); Lymphocytes Percent Auto 29.5 % (20-40); Mean Corpuscular HGB Conc 33.7 g/dl (31.0-36.0); Mean Corpuscular Hemoglobin 28.2 pg (27.0-33.0); Mean Corpuscular Volume 83.8 fL (80.0-98.0); Mean Platelet Volume 8.6 fL (9.4-12.4); Monocytes Absolute Auto 0.8 X10*3/uL (0.1-1.2); Monocytes Percent Auto 11.8 % (2-11); Neutrophils Absolute Auto 3.7 x10*3/uL (2.0-8.3); Neutrophils Percent Auto 56.5 % (45-73); Platelet Count 333 X10*3/uL (160-400); Red Blood Count 3.51 X10*6/uL (4.60-5.80); Red Cell Distribution Width 13.2 % (11.0-16.0); White Blood Count 6.5 X10*3/uL (4.8-10.8)
[2024-06-09] MEDS: amLODIPine Besylate 10 MG TABLET PO (09:33)
--- OUTSIDE RECORDS SUMMARY | 2024-06-09 09:38 | XMS_ITS | Clinical Summary ---
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 E11.9 1 Each 07/11/19 24 Active alcohol swabsIndications:T ype 2 diabetes mellitus without complication, without long-term current use of insulin ([facility]) Pt is Diabetic . E11.9 once a day 100 Each 1 07/11/19 24 Active lancets (FREESTYLE LANCETS) 28 gaugeIndications:T ype 2 diabetes mellitus without complication, without long-term current use of insulin ([facility]) Pt is Diabetic . E11.9 check once a day 100 Each 1 07/11/19 24 Active blood sugar diagnostic (FREESTYLE TEST) stripsIndications: Type 2 diabetes mellitus without complication, without long-term current use of insulin ([facility]) USE TO TEST ONCE A DAY [...] to occlusion of left anterior cerebral artery ([facility]),Mixed hyperlipidemia TAKE 1 TABLET BY MOUTH EVERY DAY 90 Tablet 1 03/06/20 24 Active lisinopriL 10 mg tabletIndications: Cerebrovascular accident (CVA) due to occlusion of left anterior cerebral artery ([facility]),[facility] hypertension TAKE 1 TABLET BY MOUTH EVERY DAY 90 Tablet 1 03/16/20 24 Active metFORMIN (GLUCOPHAGE) 500 mg tabletIndications: Controlled type 2 diabetes mellitus without complication, without long-term current use of insulin ([facility]) TAKE 1 TABLET BY MOUTH TWICE A DAY WITH A MEAL 180 Tablet 05/04/19 25 Active Active Problems Problem Noted Date Diagnosed Date Food insecurity 04/16/2024 Financial difficulties 04/16/2024 Cerebrovascular accident (CV A) due to occlusion of left anterior cerebral artery ([facility]) 09/26/2022 Overview (09/26/2022): Admitted [facility]- Admitted 09/21/22 and Woke up in [...] melly, without long-term current use of insulin ([facility]) 01/04/2015 Lump 10/28/2014 Overview (10/28/2014): R [...] Description 04/16/2024 9:00 AM EST Office Visit [address] [address] [place] Food insecurity (Primary [...] 05/2022, 10/04/2016 Imm-Hepatitis B Completed 04/11/2023, 09/28/2022 [id number] Completed 01/08/2024, 03/29, 09/28/2022, Additional history exists [...] complication, without long-term current use of insulin ([facility]) FECAL GLOBIN BY IMMUNOCHEMISTRY (FIT) Routine 05/10/2024 7:00 PM EST Screen for colon cancer HEMOGLOBIN GLYCOSYLATED A1C Routine 02/03/2024 9:40 AM EDT Type 2 diabetes mellitus without complication, without long-term current use of insulin ([facility]) COMPREHENSIVE METABOLIC PANEL Routine 04/11/2023 9:10 AM EST Routine general medical examination at a health care facility Primary hypertension Prediabetes Mixed hyperlipidemia Gastroesophageal reflux disease without esophagitis LIPID PANEL Routine 04/11/2023 9:10 AM EST Routine general medical examination at a health care facility Primary hypertension Mixed hyperlipidemia Cerebrovascular accident (CVA) due to occlusion of left anterior cerebral artery ([facility]) ANTIBODY HIV-1&HIV-2 SINGLE RESULT Routine 05/08/2019 9:55 [...] RANDOM URINE 125 20 - 320 mg/dL [employer] MICROALBUMIN 1.3 mg/dL [facility] Comment: Reference Range Not established MICROALBUMIN/CREA TININE RATIO, RANDOM URINE 10 <30 mg/g creat [employer] Comment: The ADA defines abnormalities in albumin [...] AM EST 05/12/2024 8:40 AM EST Narrative [email or web address] - 05/14/2024 6:43 PM EST SPLIT 02/03/2024 FROM [id number] us Dmitri Arzola MD LAB - NO BLOOD DRAW Final Resul t [email or web address] [address] [place] [address], [employer] [address] [place] [phone] * FECAL GLOBIN BY IMMUNOCHEMISTRY (FIT) (05/10/2024 7:00 PM EST) FECAL GLOBIN BY IMMUNOCHEMISTRY See Note [employer] Comment: ??FECAL GLOBIN BY IMMUNOCHEMISTRY ?Micro Number: ?[id number] ??Test Status: ? Final ??Specimen Source: ?? Insure (tm) fobt test card ??Specimen Quality: ??Adequate ??Fecal Globin: ?Not Detected Stool Stool specimen / Unknown 05/10/2024 7:00 PM EST 05/14/2024 7:37 AM EST Dmitri Arzola MD LAB - NO BLOOD DRAW Final Resul t Performing Organization Address [facility] de Phone Number [email or web address] [address] [place] [address], [employer] [address] [place] [phone] * (ABNORMAL) HEMOGLOBIN GLYCOSYLATED A1C (02/03/2024 9:40 AM EDT) HEMOGLOBIN A1C 7.3(H) <5.7 % of total Hgb [employer] Comment: For someone without known diabetes, a [...] AM EDT 02/03/2024 9:41 AM EDT Narrative [email or web address] - 02/04/2024 5:34 AM EDT FASTING:NO COLLECTION KIT GIVEN TO PATIENT. PATIENT ADVISED TO RETURN. us Dmitri Arzola MD LAB - BLOOD DRAW Final Result Performing Organization Address [facility] Co de Phone Number [email or web address] [address] [place] [address], [employer] [address] [place] [phone] * (ABNORMAL) LIPID PANEL (04/11/2023 9:10 AM EST) CHOLESTEROL, TOTAL 138 <200 mg/dL [employer] [facility] HDL CHOLESTEROL 39(L) > OR = 40 mg/dL [employer] [facility] TRIGLYCERIDES 164(H) <150 mg/dL [employer] [facility] LDL-CHOLESTEROL 75 99 mg/dL (calc) [employer] [facility] Comment: Reference range: <100 Desirable range <100 mg/dL for primary prevention; ?? <70 mg/dL for patients with CHD or diabetic patients with > or = 2 CHD risk factors. LDL-C is now calculated using the Jennifer calculation, which is a validated novel method providing better accuracy than the Friedewald equation in the estimation of LDL-C. Nick SS et al. RONALD. 2013;310(19): 6741-3568 (http://education.Soil IQ/faq/SKX880) CHOL/HDLC RATIO 3.5 <5.0 (calc) [employer] [facility] NON-HDL CHOLESTEROL 99 <130 mg/dL (calc) [employer] [facility] Comment: For patients with diabetes plus 1 major ASCVD risk factor, treating to a non-HDL-C goal of <100 mg/dL (LDL-C of <70 mg/dL) is considered a therapeutic option. Blood Blood / Unknown 04/11/2023 9 :10 AM EST 04/11/2023 9:11 AM EST Narrative [employer] [facility] - 04/12/2023 7:44 AM EST FASTING:NO Dmitri Arzola MD LAB - BLOOD DRAW Final Result [employer] [facility] [address] [address], [employer] [facility] [address] [place] [address] * (ABNORMAL) COMPREHENSIVE METABOLIC PANEL (04/11/2023 9:10 AM EST) Pathologist [facility] GLUCOSE 134 65 - 139 mg/dL [employer] [facility] Comment: ?Non-fasting reference interval UREA NITROGEN (BUN) 15 7 - 25 mg/dL [employer] [facility] CREATININE (blood) 1.03 0.70 - 1.30 mg/dL [employer] [facility] EGFR 84 > OR = 60 mL/min/1. 73m2 [employer] [facility] BUN/CREATININE RATIO SEE NOTE: [employer] [facility] Comment: ?? Not Reported: BUN and Creatinine are within ?? reference range. ? SODIUM 136 135 - 146 mmol/L [employer] [facility] POTASSIUM 4.4 3.5 - 5.3 mmol/L [employer] [facility] CHLORIDE 101 98 - 110 mmol/L [employer] [facility] CARBON DIOXIDE 26 20 - 32 mmol/L [employer] [facility] CALCIUM 9.6 8.6 - 10.3 mg/dL [employer] [facility] PROTEIN, TOTAL 6.9 6.1 - 8.1 g/dL [employer] [facility] ALBUMIN 4.6 3.6 - 5.1 g/dL [employer] [facility] GLOBULIN 2.3 1.9 - 3.7 g/dL (calc) [employer] [facility] ALBUMIN/GLOBULI N RATIO 2.0 1.0 - 2.5 (calc) [employer] [facility] BILIRUBIN, TOTAL 0.5 0.2 - 1.2 mg/dL [employer] [facility] ALKALINE PHOSPHATASE 88 35 - 144 U/L [employer] [facility] AST 19 10 - 35 U/L [employer] [facility] ALT 49(H) 9 - 46 U/L [employer] [facility] Blood Blood / Unknown 04/11/2023 9 :10 AM EST 04/11/2023 9:11 AM EST Narrative [employer] [facility] - 04/12/2023 7:44 AM EST FASTING:NO us Dmitri Arzola MD LAB - BLOOD DRAW Edited Result - Final [employer] [facility] [address] [address], [employer] [facility] [address] [place] [address] * HEPATITIS A,B,C PANEL (05/08/2019 9:55 AM EST) HEPATITIS B SURFACE ANTIBODY NEGATIVE NEGATIVE [facility] HEPATITIS B SURFACE ANTIGEN NEGATIVE NEGATIVE [facility] Comment: Over the counter supplements containing high doses of biotin may interfere with this assay. ??If interference is suspected, patients shoud be retested after refraining from biotin supplements for 72 hours. HEPATITIS C VIRUS DIAGNOSTIC NEGATIVE NEGATIVE [facility] HEPATITIS A ANTIBODY TOTAL NEGATIVE NEGATIVE [facility] Comment: Over the counter supplements containing high doses of biotin may interfere with this assay. ??If interference is suspected, patients shoud be retested after refraining from biotin supplements for 72 hours. HEPATITIS B CORE ANTIBODY NEGATIVE NEGATIVE [facility] Blood specimen (specimen) Blood / Unknown 05/08/2019 9:55 AM EST 05/08/2019 10:21 AM EST Narrative [facility] - 05/08/2019 1:59 PM EST [employer], [place] [address] Program Manager Slp - Roslyn Live MD PT ID [id number] ORD# [id number] Lena [facility]ILLASEÑOR LAB - BLOOD DRAW Edited Res ult - Final Performing Organization Address [facility] Phone Number [address] [address], * HIV-1 & HIV-2 ANTIBODIES (05/08/2019 9:55 AM EST) [facility] HIV 1 AND 2 ANTIBODY SCREEN NONREACTIVE NONREACTIVE [facility] Comment: HIV testing performed at reference lab due to reagent backorder. Test performed at: [facility] [address] [place] [address] Juan Carlos Martinez MD- Program Manager Slp Blood specimen (specimen) Blood / Unknown 05/08/2019 9:55 AM EST 05/08/2019 10:21 AM EST Narrative [facility] - 05/13/2019 2:51 PM EST [employer], [place] [address] Program Manager Slp - Roslyn Live MD PT ID [id number] ORD# [id number] Lena [facility]ILL[facility] LAB - BLOOD DRAW Final Resu lt [facility] [address] [place] [address], from Last 3 Months or Most Recently Relevant to Health Maintenance Insurance [id number] Care Teams Electrical Estimator Relationship Specialty Start Date End Date Dmitri Arzola MD [address] [place] [address] PCP - General Internal Medicine 05/05/19
[2024-06-09 09:40] LABS: Alanine Aminotransferase 28 U/L (0-40); Albumin Level 4.3 g/dL (3.5-5.0); Alkaline Phosphatase 108 U/L (39-117); Anion Gap 14 (12-20); Aspartate Amino Transferase 23 U/L (5-37); Bilirubin Total 0.5 mg/dL (0.0-1.0); Blood Urea Nitrogen 46 mg/dL (9-16); Carbon Dioxide 22 mmol/L (22-29); Chloride 107 mmol/L (96-108); Estimated Glomerular Filt Rate 21; Glucose Random 110 mg/dL (60-115); Sodium 139 mmol/L (135-145); Total Protein 7.8 g/dL (6.5-8.0)
[2024-06-09 10:44] LABS: Prothrombin Time 11.5 SEC (10.9-12.4)
[2024-06-09 10:46] LABS: PTT Heparin Drip 30.1 SEC (53-77.9)
--- NOTE | 2024-06-09 10:50 | PC.NURSE ---
Pt taken to US
--- NOTE | 2024-06-09 11:39 | PC.NURSE ---
Pt reporting he recently had dialysis port placed on right side. Reporting significant neck pain for past few days on right side. Has not taken BP meds in 2 days. Has not had dialysis since Saturday. Pt is alert and oriented, breathing even and unlabored, NSR on bedside lunchroom monitor. BP hypertensive.
[2024-06-09] MEDS: Heparin Sodium,Porcine 5,000 UNIT/ML VIAL 6800 UNIT IVPUSH (12:16)
[2024-06-09] MEDS: Heparin Sodium,Porcine/1/2NS 25,000 UNIT/250 ML IV.SOLN 11.82 UNIT IVCONT (12:18)
--- NOTE | 2024-06-09 12:23 | PC.NURSE ---
Heparin drip started with 2 RNs verifying. Bed weight was verified prior and pharmacy updated. Pt has 2 IV lines, patent. PTT-HD next lab order placed.
--- NOTE | 2024-06-09 13:15 | PHA.MEDREC ---
Pharmacy Consult ? Medication Reconciliation Pharmacy has completed the medication reconciliation. Spoke to patient's at bedside to confirm med list
--- NOTE | 2024-06-09 13:17 | P.HPHOSP_ITS ---
History of Present Illness Date of Service: 06/09/24 59-year-old male with PMH significant for diabetes, hypertension, chronic bronchitis, tobacco use, and recent renal failure due to ATN (as per biopsy) ultimately requiring dialysis, who presents to the ED from nephrology office with complaints of R neck swelling at [facility] (placed on 06/02/24) site, with concerns for DVT. Additionally, at that time he had a reaction to lisinopril that caused lip and surrounding tissue swelling, which has since resolved, the neck swelling is still present. Denies fever, chills, CP, palpitations, SOB, lower extremity swelling or pain, no GI or symptoms, infact states he is proudly improving with urination and kidney function. Review of Systems 2 Review of Systems: Constitutional: Comments: Denies wt. loss, fever or chills, fatigue Eyes: Comments: Denies changes to vision ENT: Comments: Denies headache, changes to hearing, vertigo, sore throat Endorses R neck swelling, pain with movement Respiratory: Comments: Denies sputum, hemoptysis, wheezing or dyspnea Gastrointestinal: Comments: Denies M/V/D, changes to appetite Genitourinary: Comments: Denies discharge, hematuria, or pain Endorses improvement in urine output and frequency Musculoskeletal: Comments: Denies muscle or joint pain or swelling Integumentary/Breasts: Comments: Denies rashes, lesion Neurologic: Comments: Denies dizziness, syncope, seizures, tremors, numbness or tingling Psychiatric: Comments: Denies anxiety, depression, or changes to memory Endocrine: Comments: Denies polydipsia or uria, excessive sweating, temperature intolerances, or bleeding Allergic/Immunologic: Comments: Recent facial swelling after using lisinopril [facility] Medical History HLD (hyperlipidemia) Non-insulin dependent type 2 diabetes mellitus Asthma Hypertension Social History Household Members: Family Housing: Apartment Do you presently have visiting nurse or other home services: No Alcohol intake: former Patient Tobacco Use Status: Current someday Tobacco user Tobacco use type: Cigarette Cigarette Packs Per Day: 1 Cigarettes Per Day: 9 Smoked in Last 30 Days: Yes e-Cigarette/Vaping Use: Never Used Second Hand Smoke Exposure: No Use of substances other than those prescribed or required for medical reasons: No Advance Directives: No Advance Directives Information Provided: Yes Do you have a plan to hurt others: No Plan service: No Current occupational status: employed Meds Allergies Allergy/AdvReac Type Severity Reaction Status Date / Time lisinopril Allergy Facial Verified 06/09/24 07:32 Swelling Active Medications: Current Medications Heparin Sodium (Porcine) (Heparin Sodium,Porcine 5,000 Unit/Ml Vial) 3,400 unit 40 unit/kg (3400 unit) IVPUSH PROTOCOL BOLUS PRN; Protocol PRN Reason: 40 unit/kg - Heparin Protocol Heparin Sodium (Porcine) (Heparin Sodium,Porcine 5,000 Unit/Ml Vial) 6,800 unit 80 unit/kg (6800 unit) IVPUSH PROTOCOL BOLUS PRN; Protocol PRN Reason: 80 unit/kg - Heparin Protocol Heparin Sodium/Sodium Chloride (Heparin Sodium,Porcine/1/2ns) 25,000 unit in 250 mls @ 0 mls/hr IVCONT .Q0M [facility]; Protocol Last Admin: 06/09/24 12:18 Dose: 14 units/kg/hr, 11.82 mls/hr Home Medications ?Medication ?Instructions ?Recorded ?Confirmed ?Last Taken ?Type multivitamin 1 tab PO DAILY 09/19/22 06/09/24 06/06/24 History omeprazole 20 mg capsule,delayed 40 mg PO DAILY@0630 09/19/22 06/09/24 06/06/24 History release metformin 500 mg tablet 500 mg PO BID 05/19/24 06/09/24 06/06/24 History umeclidinium 62.5 mcg-vilanterol 1 inh inhalation DAILY 05/19/24 06/09/24 06/06/24 History 25 mcg/actuation powdr for inhalation (Anoro Ellipta) Physical Exam 2 Vital Signs and Narrative: Vital Signs: Last Vital Signs Temp 97.4 F 06/09/24 11:32 Pulse 88 06/09/24 11:32 Resp 16 06/09/24 11:32 BP 180/94 H 06/09/24 11:32 Pulse Ox 98 06/09/24 11:32 O2 Del Method Room Air 06/09/24 07:30 BMI result Body Mass Index 26.7 Const: General: cooperative, alert and awake Nutritional Appearance: o verweight Orientation/consciousness: patient oriented x3 Limitations: no limitations HEENT: Mouth: Normal oral and palatal mucosa present Neck: Yes anterior neck swelling Lymphatic: lymphedema right neck Resp: Effort & Inspection: normal respiratory effort Auscultation: clear to auscultation bilaterally and diminished lung sounds bilateral in the lower lung tai Cardio: Rate: regular rate Rhythm: regular rhythm GI: Inspection: Yes normal to inspection and Yes distended Auscultation: n ormal bowel sounds : General: Yes no CVA tenderness Back/Spine/Pelvis: Back: no CVA tenderness Skin: General skin exam: erythema (R neck, chest ) Neuro: General: patient oriented x3 Cranial nerves: Yes CN's II-XII intact bilaterally and Yes Bilaterally intact EOM present Motor exam (neuro): 5/5 motor strength present throughout Extrem: General: Yes normal to inspection and Yes full ROM Psych: Appearance: grossly normal Mental Status: mental status grossly normal Speech and movement: Normal speech and movement present Results Labs 06/09/24 09:14 06/09/24 09:14 Labs: Laboratory Results - last 24 hr 06/09/24 06/09/24 09:14 10:13 MCV 83.8 MCH 28.2 MCHC 33.7 RDW 13.2 Plt Count 333 MPV 8.6 L Immature Gran % (Auto) 0.5 H Neut % (Auto) 56.5 Lymph % (Auto) 29.5 [place] % (Auto) 11.8 H Eos % (Auto) 1.4 Baso % (Auto) 0.3 Lymph # (Auto) 1.9 [place] # (Auto) 0.8 Eos # (Auto) 0.1 Baso # (Auto) 0.0 Abs Immat Gran (auto) 0.03 Absolute Neuts (auto) 3.7 Absolute Nucleated RBC 0.000 Nucleated RBC % (auto) 0.0 PT 11.5 INR 1.0 aPTT Heparin Protocol 30.1 L Anion Gap 14 Estim Creat Clear Calc 27.0 Estimated GFR 21 Random Glucose 110 Calcium 9.0 Total Bilirubin 0.5 AST 23 ALT 28 Alkaline Phosphatase 108 Total Protein 7.8 Albumin 4.3 Assessment and Plan Plan 59-year-old male with PMH significant for diabetes, hypertension, chronic bronchitis, tobacco use, and recent renal failure due to ATN (as per biopsy) ultimately requiring dialysis, who presents to the ED from nephrology office with complaints of R neck swelling at [facility]placed on 06[facility]) site, with concerns for DVT.
--- NOTE | 2024-06-09 13:18 | PHA.MEDREC ---
Addendum entered by Champ De La Cruz RPh 06/09/24 13:26: Med rec was reviewed by [facility]. Original Note: Pharmacy Consult ? Medication Reconciliation Pharmacy has completed the medication reconciliation. Spoke to patient to confirm med list. patient had a discharged packet from [facility] dates 06/03/24 with current medications. Patient states he no longer takes HCTZ 25 mg and Lisinopril 10 mg.
--- NOTE | 2024-06-09 13:56 | PC.NURSE ---
IR at bedside looking at dialysis port
--- NOTE | 2024-06-09 15:19 | PM.PROC ---
Brief Operative Note Date of procedure: 06/09/24 Pre-op diagnosis: No longer needs access for dialysis Post-op diagnosis: same Procedure: Right IJ permacath removed beside. DSD applied to chest.
--- NOTE | 2024-06-09 16:57 | PC.NURSE ---
Dialysis port removed by IR doc.
[2024-06-09 18:48] LABS: PTT Heparin Drip 55.4 SEC (53-77.9)
--- NOTE | 2024-06-09 19:20 | PC.NURSE ---
This RN assumed pt care @ 1900. Pt a&ox4, no signs of distress. Pt reports 10 neck pain Plan of care ongoing.
--- NOTE | 2024-06-09 21:06 | P.HPHOSP_ITS ---
History of Present Illness Date of Service: 06/09/24 Chief Complaint: neck swelling 59-year-old man presented to the ER with right neck pain and swelling. He has history of chronic kidney disease and has been on dialysis for about a week and a half. 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 Patient denied any fever, chills, nausea, vomiting, diarrhea, bleeding. He did report swelling and pain to his right neck. He was seen by IR and right IJ PermCath was removed. Venous duplex study showed positive DVT within the right IJ vein. Review of Systems 2 Review of Systems: Denies any recent fever chills or decrease in appetite respiratory denies any shortness of breath or cough cardiovascular denied chest pain gastrointestinal denies any dysphagia abdominal pain nausea vomiting or diarrhea genitourinary denies any dysuria frequency or hematuria musculoskeletal denies any joint pain or swelling neuropsych denies any weakness or seizures all other systems reviewed are negative [facility] Medical History HLD (hyperlipidemia) Non-insulin dependent type 2 diabetes mellitus Asthma Hypertension Social History Household Members: Family Housing: Apartment Do you presently have visiting nurse or other home services: No Alcohol intake: former Patient Tobacco Use Status: Current someday Tobacco user Tobacco use type: Cigarette Cigarette Packs Per Day: 1 Cigarettes Per Day: 9 Smoked in Last 30 Days: Yes e-Cigarette/Vaping Use: Never Used Second Hand Smoke Exposure: No Use of substances other than those prescribed or required for medical reasons: No Advance Directives: No Advance Directives Information Provided: Yes Do you have a plan to hurt others: No Plan service: No Current occupational status: employed Meds Allergies Allergy/AdvReac Type Severity Reaction Status Date / Time lisinopril Allergy Facial Verified 06/09/24 07:32 Swelling Active Medications: Current Medications Acetaminophen (Acetaminophen 325 Mg Tablet) 650 mg PO Q6H PRN PRN Reason: Pain, Mild 1-3,fever,headache Calcium Carbonate (Calcium Carbonate 750 Mg Tab.Chew) 750 mg PO Q4H PRN PRN Reason: Heartburn Heparin Sodium (Porcine) (Heparin Sodium,Porcine 5,000 Unit/Ml Vial) 3,400 unit 40 unit/kg (3400 unit) IVPUSH PROTOCOL BOLUS PRN; Protocol PRN Reason: 40 unit/kg - Heparin Protocol Heparin Sodium (Porcine) (Heparin Sodium,Porcine 5,000 Unit/Ml Vial) 6,800 unit 80 unit/kg (6800 unit) IVPUSH PROTOCOL BOLUS PRN; Protocol PRN Reason: 80 unit/kg - Heparin Protocol Heparin Sodium/Sodium Chloride (Heparin Sodium,Porcine/1/2ns) 25,000 unit in 250 mls @ 0 mls/hr IVCONT .Q0M [facility]; Protocol Last Titration: 06/09/24 19:17 Dose: 14 units/kg/hr, 11.82 mls/hr Magnesium Hydroxide (Milk Of Magnesia 30 Ml Oral.Susp) 30 ml PO DAILY PRN PRN Reason: Constipation Melatonin (Melatonin 3 Mg Tablet) 6 mg PO BEDTIME PRN PRN Reason: Insomnia Ondansetron HCl (Ondansetron Hcl 4 Mg/2 Ml Vial) 4 mg IVPUSH Q8H PRN PRN Reason: Nausea and Vomiting Sodium Chloride (0.9 % Sodium Chloride Flush 3 Ml Syringe) 3 [facility] Home Medications ?Medication ?Instructions ?Recorded ?Confirmed ?Last Taken ?Type multivitamin 1 tab PO DAILY 09/19/22 06/09/24 06/08/24 History omeprazole 20 mg capsule,delayed 40 mg PO DAILY@0630 09/19/22 06/09/24 06/08/24 History release metformin 500 mg tablet 500 mg PO BID 05/19/24 06/09/24 06/06/24 History umeclidinium 62.5 mcg-vilanterol 1 inh inhalation DAILY 05/19/24 06/09/24 06/06/24 History 25 mcg/actuation powdr for inhalation (Anoro Ellipta) Physical Exam 2 Vital Signs and Narrative: Vital Signs: Last Vital Signs Temp 98.6 F 06/09/24 18:09 Pulse 100 06/09/24 18:09 Resp 20 06/09/24 18:09 BP 144/70 H 06/09/24 18:09 Pulse Ox 97 06/09/24 18:09 O2 Del Method Room Air 06/09/24 18:09 BMI result Body Mass Index 26.7 Appearing in no acute distress head is normocephalic atraumatic eyes pupils are PERRLA sclera is anicteric mouth throat mucous membranes are intact and moist neck right side edema from temp cath lung sounds are clear to auscultation heart regular rate rhythm, clear S1, S2 positive bowel sounds, abdomen is soft, nontender neuro patient is alert x3, no focal deficits Results Labs 06/10/24 04:39 06/10/24 04:39 Labs: Laboratory Results - last 24 hr 06/09/24 06/09/24 06/09/24 09:14 10:13 18:35 MCV 83.8 MCH 28.2 MCHC 33.7 RDW 13.2 Plt Count 333 MPV 8.6 L Immature Gran % (Auto) 0.5 H Neut % (Auto) 56.5 Lymph % (Auto) 29.5 [place] % (Auto) 11.8 H Eos % (Auto) 1.4 Baso % (Auto) 0.3 Lymph # (Auto) 1.9 [place] # (Auto) 0.8 Eos # (Auto) 0.1 Baso # (Auto) 0.0 Abs Immat Gran (auto) 0.03 Absolute Neuts (auto) 3.7 Absolute Nucleated RBC 0.000 Nucleated RBC % (auto) 0.0 PT 11.5 INR 1.0 aPTT Heparin Protocol 30.1 L 55.4 D Anion Gap 14 Estim Creat Clear Calc 27.0 Estimated GFR 21 Random Glucose 110 Calcium 9.0 Total Bilirubin 0.5 AST 23 ALT 28 Alkaline Phosphatase 108 Total Protein 7.8 Albumin 4.3 Assessment and Plan (1) Hypertension: Qualifiers: Hypertension type: primary hypertension Qualified Code(s): I10 - Essential (primary) hypertension Status: Acute Plan 59 year old patient presenting with right sided neck swelling from temp dialysis catheter Right neck DVT From dialysis catheter removed as per IR Nephrology consult for possible replacement HTN DM2 ss, ada diet GERD PPI BPH Tamsulosin Asthma no exacerbation continue inhalors as needed DVT prophylaxis with SCD boots Full code Quality Stroke Does the patient have a stroke diagnosis?: No VTE Prior VTE?: No VTE Risk Level:: Medical - moderate - high VTE Device Contraindication: Treatment Not Indicated VTE Drug Contraindication: N/A - Med Ordered
[2024-06-09] MEDS: traMADoL HCL 50 MG TABLET 25 MG PO (23:07)
--- NOTE | 2024-06-09 23:07 | PC.NURSE ---
Pt a&ox4, no signs of distress Pt reports 9/10 neck and head pain Pt medicated per mar Plan of care ongoing
[2024-06-10 00:14] VITALS: RESP 14
[2024-06-10 00:37] VITALS: BP 155/89; PULSE 91; RESP 17; TEMP 37.1; O2SAT 97
[2024-06-10 00:40] LABS: PTT Heparin Drip 50.9 SEC (53-77.9)
[2024-06-10] MEDS: Heparin Sodium,Porcine 5,000 UNIT/ML VIAL 3400 UNIT IVPUSH ×2 (03:24→09:45)
[2024-06-10 05:06] LABS: Hematocrit 28.7 % (42.0-52.0); Hemoglobin 9.7 g/dl (14.0-18.0); Mean Corpuscular HGB Conc 33.8 g/dl (31.0-36.0); Mean Corpuscular Hemoglobin 28.4 pg (27.0-33.0); Mean Corpuscular Volume 83.9 fL (80.0-98.0); Mean Platelet Volume 9.1 fL (9.4-12.4); Platelet Count 375 X10*3/uL (160-400); Red Blood Count 3.42 X10*6/uL (4.60-5.80); Red Cell Distribution Width 13.3 % (11.0-16.0)
[2024-06-10 05:22] LABS: Alanine Aminotransferase 30 U/L (0-40); Alkaline Phosphatase 104 U/L (39-117); Anion Gap 17 (12-20); Aspartate Amino Transferase 24 U/L (5-37); Bilirubin Total 0.4 mg/dL (0.0-1.0); Blood Urea Nitrogen 38 mg/dL (9-16); Calcium 8.9 mg/dL (8.4-10.2); Carbon Dioxide 20 mmol/L (22-29); Chloride 104 mmol/L (96-108); Estimated Glomerular Filt Rate 22; Glucose Random 134 mg/dL (60-115); Sodium 137 mmol/L (135-145); Total Protein 7.5 g/dL (6.5-8.0)
[2024-06-10 06:27] VITALS: BP 160/95; PULSE 90; TEMP 37; O2SAT 97
[2024-06-10] MEDS: 0.9 % Sodium Chloride Flush 3 ML SYRINGE IVFLUSH (08:34)
[2024-06-10 08:35] VITALS: BP 167/87; PULSE 89; RESP 18; O2SAT 98
[2024-06-10] MEDS: Heparin Sodium,Porcine/1/2NS 25,000 UNIT/250 ML IV.SOLN 13.5 UNIT IVCONT (08:47)
[2024-06-10 09:15] LABS: PTT Heparin Drip 43.6 SEC (53-77.9)
[2024-06-10 11:06] VITALS: BP 179/81; PULSE 100; RESP 18
--- NOTE | 2024-06-10 11:13 | MHC.CM.PN ---
Pt lives with family, PCP confirmed: Dmitri Arzola, HCP is on file and confirmed: Katya Alvarado. Pt is functionally independent, he does not have home care services, or DME. Family will transport home at DC. DCP: home, self care. CM to follow for DC needs.
--- NOTE | 2024-06-10 12:14 | PM.DS ---
DS: Providers Provider Date of Service: 06/10/24 Date of admission: 06/09/24 21:01 Date of discharge: 06/10/24 Primary care physician: Dmitri Arzola MD Consults: 06/09/24 12:01 Consult to Nephrology Stat Consulting Provider: [facility] Viky Núñez Reason for consultation: DVT RT IJ in pt with dyalisis catheter Has provider been notified: Yes 06/09/24 21:05 Consult to Nephrology Routine Consulting Provider: [facility] Viky Núñez Reason for consultation: IJ clot DS: Summary Hospital Course Hospital Course: 59-year-old man presented to the ER with right neck pain and swelling. He has history of chronic kidney disease and has been on dialysis for about a week and a half. He was sent to the ER by his broadcast traffic coordinator who had concerns of DVT to the right IJ catheter. Patient denied any fever, chills, nausea, vomiting, diarrhea, bleeding. He did report swelling and pain to his right neck. He was seen by IR and right IJ PermCath was removed. Venous duplex study showed positive DVT within the right IJ vein. Right neck DVT. Started on Eliquis. No longer requires dialysis as per broadcast traffic coordinator, right neck IJ dialysis catheter removed as per IR. Patient did well. Plan to discharge home with 3 months of Eliquis, follow up with primary care provider for maintenance of this medication. HTN . Continue home medications Diabetes mellitus type 2. Continue home medications GERD. Continue PPI BPH. Continue tamsulosin History of asthma. No exacerbation. Continue inhalers as needed Time Attestation Discharge Coordination Time (in mins): 40 Quality: Safe Use of Opioids Does Pt have an Active Cancer Diagnosis on the Problem List?: No Quality: Stroke Does the patient have a stroke diagnosis?: No Physical Exam Vital Signs: Vital Signs: Last Vital Signs Temp 98.6 F 06/10/24 06:27 Pulse 100 06/10/24 11:06 Resp 18 06/10/24 11:06 BP 179/81 H 06/10/24 11:06 Pulse Ox 98 06/10/24 08:35 O2 Del Method Room Air 06/10/24 08:35 BMI result Body Mass Index 26.7 Appearing in no acute distress head is normocephalic atraumatic eyes pupils are PERRLA sclera is anicteric mouth throat mucous membranes are intact and moist neck is supple no lymphadenopathy, no JVD noted lung sounds are clear to auscultation heart regular rate rhythm, clear S1, S2 positive bowel sounds, abdomen is soft, nontender neuro patient is alert x3, no focal deficits DS: Data Data Completed and Pending Completed studies during hospitalization [Text1]: Procedures Insertion of Infusion Device into Right Atrium, Percutaneous Approach (05/19/24) Insertion of Infusion Device into Superior Vena Cava, Percutaneous Approach (05/19/24) Insertion of Tunneled Vascular Access Device into Chest Subcutaneous Tissue and Fascia, Percutaneous Approach (05/19/24) Ultrasonography of Superior Vena Cava, Guidance (05/19/24) Labs on day of discharge: Laboratory Results - last 24 hr 06/09/24 06/10/24 06/10/24 18:35 00:26 04:39 WBC 7.0 RBC 3.42 L Hgb 9.7 L Hct 28.7 L MCV 83.9 MCH 28.4 MCHC 33.8 RDW 13.3 Plt Count 375 MPV 9.1 L Absolute Nucleated RBC 0.000 Nucleated RBC % (auto) 0.0 aPTT Heparin Protocol 55.4 D 50.9 L Sodium 137 Potassium 4.0 Chloride 104 Carbon Dioxide 20 L Anion Gap 17 BUN 38 H Creatinine 2.93 H Estim Creat Clear Calc 28.0 Estimated GFR 22 Random Glucose 134 H Calcium 8.9 Total Bilirubin 0.4 AST 24 ALT 30 Alkaline Phosphatase 104 Total Protein 7.5 Albumin 4.0 06/10/24 09:03 WBC RBC Hgb Hct MCV MCH MCHC RDW Plt Count MPV Absolute Nucleated RBC Nucleated RBC % (auto) aPTT Heparin Protocol 43.6 L Sodium Potassium Chloride Carbon Dioxide Anion Gap BUN Creatinine Estim Creat Clear Calc Estimated GFR Random Glucose Calcium Total Bilirubin AST ALT Alkaline Phosphatase Total Protein Albumin Preliminary micro results at discharge 06/09/24 09:14 Blood Culture - Preliminary Blood - Venous No growth after 24 hours. 06/09/24 09:14 Blood Culture - Preliminary Blood - Venous No growth after 24 hours. Discharge Plan Discharge Anticipated Discharge Date/Time: 06/10/24 12:01 Patient Disposition: Home, Self-Care Discharge Diagnosis: DVT CKD stage 4 Referrals: Dmitri Arzola MD [Primary Care Provider] - 1 Week Discharge Medications: New Eliquis 5 mg tablet 10 mg PO BID Qty: 70 0RF Rx Instructions: Take 10 mg twice daily for 7 days then 5 mg twice daily Continued multivitamin Tablet 1 tab PO DAILY omeprazole 20 mg Capsule,Delayed Release(Dr/Ec) 40 mg PO DAILY@0630 atorvastatin 80 mg Tablet 80 mg PO DAILY Qty: 30 3RF aspirin 81 mg Tablet,Chewable 81 mg PO DAILY Qty: 30 3RF metformin 500 mg tablet 500 mg PO BID Anoro Ellipta 62.5-25 mcg/actuation Blister With Device 1 inh INHALATION DAILY tamsulosin 0.4 mg Capsule 0.8 mg PO BEDTIME Qty: 180 0RF amlodipine 10 mg Tablet 10 mg PO DAILY Qty: 90 0RF Protocol: Hold for SBP< HOLD for SBP < : 90 hydralazine 50 mg Tablet 50 mg PO TID Qty: 270 0RF Protocol: Hold for SBP< HOLD for SBP < : 90 Discharge Orders: Discharge Order (Routine); Ordered 06/10/24 Ordered By: Nathaly Ash Diet: Advance to usual diet Activity on Discharge: As tolerated Stand Alone Forms: Patient Portal Discharge page Print Language: [place] Care Plan Goals: You have been started on Eliquis, take 10 mg twice daily for 7 days then 5 mg twice daily Health Concerns: DVT CKD stage 4 Plan of Treatment: Follow-up with primary care provider as needed Take all medications as prescribed Assessment: See discharge summary Patient Instructions: Apixaban (By mouth)
--- NOTE | 2024-06-10 13:33 | P.CONNP_ITS ---
History of Present Illness Reason for Consult Consult date: 06/10/24 Chief Complaint Chief complaint: IJ DVT History of Present Illness Narrative: 59-year-old male with history of diabetes, hypertension who recently was admitted and treated for Acute renal failure with acute metabolic acidosis requiring acute hemodialysis which seems to be related more to ATN . He has significant improvement in his urine output and his serum creatinine has been steadily improving. Permacath was placed on 06/02/24 & his last inpatient HD session on 06/03/24. He presented to ER with facial swelling and lip swelling which was thought to be angioedema from ACEI. He came to office with difficulty turning his neck as well as right sided neck swelling. He denied any SOB or hemoptysis. He was thought to have DVT in IJ. He was sent over to ER for Duplex, permcath removal and further management. Nephrology has been consulted to assist in his clinical care during his current hospital stay Review of Systems Review of Systems Yes all other systems are reviewed and are negative PMFSH Past Medical History Medical History HLD (hyperlipidemia) Non-insulin dependent type 2 diabetes mellitus Asthma Hypertension Social History Social History Household Members: Family Housing: Apartment Do you presently have visiting nurse or other home services: No Alcohol intake: former Patient Tobacco Use Status: Current someday Tobacco user Tobacco use type: Cigarette Cigarette Packs Per Day: 1 Cigarettes Per Day: 9 Smoked in Last 30 Days: Yes e-Cigarette/Vaping Use: Never Used Second Hand Smoke Exposure: No Use of substances other than those prescribed or required for medical reasons: No Advance Directives: No Advance Directives Information Provided: Yes Do you have a plan to hurt others: No Plan service: No Current occupational status: employed Meds Allergies Allergy/AdvReac Type Severity Reaction Status Date / Time lisinopril Allergy Facial Verified 06/09/24 07:32 Swelling Active Medications: Current Medications Acetaminophen (Acetaminophen 325 Mg Tablet) 650 mg PO Q6H PRN PRN Reason: Pain, Mild 1-3,fever,headache Calcium Carbonate (Calcium Carbonate 750 Mg Tab.Chew) 750 mg PO Q4H PRN PRN Reason: Heartburn Heparin Sodium (Porcine) (Heparin Sodium,Porcine 5,000 Unit/Ml Vial) 3,400 unit 40 unit/kg (3400 unit) IVPUSH PROTOCOL BOLUS PRN; Protocol PRN Reason: 40 unit/kg - Heparin Protocol Last Admin: 06/10/24 09:45 Dose: 3,400 unit Heparin Sodium (Porcine) (Heparin Sodium,Porcine 5,000 Unit/Ml Vial) 6,800 unit 80 unit/kg (6800 unit) IVPUSH PROTOCOL BOLUS PRN; Protocol PRN Reason: 80 unit/kg - Heparin Protocol Heparin Sodium/Sodium Chloride (Heparin Sodium,Porcine/1/2ns) 25,000 unit in 250 mls @ 0 mls/hr IVCONT .Q0M ALEXIS; Protocol Last Titration: 06/10/24 09:46 Dose: 18 units/kg/hr, 15.19 mls/hr Magnesium Hydroxide (Milk Of Magnesia 30 Ml Oral.Susp) 30 ml PO DAILY PRN PRN Reason: Constipation Melatonin (Melatonin 3 Mg Tablet) 6 mg PO BEDTIME PRN PRN Reason: Insomnia Ondansetron HCl (Ondansetron Hcl 4 Mg/2 Ml Vial) 4 mg IVPUSH Q8H PRN PRN Reason: Nausea and Vomiting Sodium Chloride (0.9 % Sodium Chloride Flush 3 Ml Syringe) 3 ml IVFLUSH [facility] Last Admin: 06/10/24 08:34 Dose: 3 ml Home Medications ?Medication ?Instructions ?Recorded ?Confirmed ?Last Taken ?Type multivitamin 1 tab PO DAILY 09/19/22 06/09/24 06/08/24 History omeprazole 20 mg capsule,delayed 40 mg PO DAILY@0630 09/19/22 06/09/24 06/08/24 History release metformin 500 mg tablet 500 mg PO BID 05/19/24 06/09/24 06/06/24 History umeclidinium 62.5 mcg-vilanterol 1 inh inhalation DAILY 05/19/24 06/09/24 06/06/24 History 25 mcg/actuation powdr for inhalation (Anoro Ellipta) Physical Exam Vital Signs: Last Vital Signs Temp 98.6 F 06/10/24 06:27 Pulse 100 06/10/24 11:06 Resp 18 06/10/24 11:06 BP 179/81 H 06/10/24 11:06 Pulse Ox 98 06/10/24 08:35 O2 Del Method Room Air 06/10/24 08:35 BMI result Body Mass Index 26.7 Const General: comfortable and no acute distress Orientation/consciousness: patient oriented x3 HEENT Head: Yes normocephalic Mouth: Normal oral and palatal mucosa present Eyes EOM: EOMs intact bilaterally Neck Neck: Yes supple Resp Auscultation: clear to auscultation bilaterally Cardio Jugular venous distension: no JVD Rate: regular rate GI Palpation (GI): Soft to palpation Auscultation: normal bowel sounds General: Yes no CVA tenderness Back/Spine/Pelvis Back: no CVA tenderness Skin General skin exam: no rashes or lesions noted Neuro General: patient oriented x3 and moves all extremities Extrem General: Yes no pedal edema Results Lab Results 06/10/24 04:39 06/10/24 04:39 Lab results: Chemistry 06/09/24 06/10/24 09:14 04:39 Sodium 139 137 Potassium 4.0 4.0 Carbon Dioxide 22 20 L BUN 46 H 38 H Creatinine 3.04 H 2.93 H Calcium 9.0 8.9 Hematology 06/09/24 06/10/24 09:14 04:39 WBC 6.5 7.0 Hgb 9.9 L 9.7 L Plt Count 333 [id number] Assessment and Plan (1) DVT (deep venous thrombosis): Qualifiers: Affected thrombotic vein of extremity: other upper extremity vein C hronicity: acute DVT location: upper extremity Laterality: right Qualified Code(s): I82.621 - Acute embolism and thrombosis of deep veins of right upper extremity Status: Acute (2) RAMONITA (acute kidney injury): Status: Acute Plan RAMONITA due to ATN ( S/P renal biopsy)- recovering Urine output good; Has DVT of neck- On Elquis No further HD ; Permcath taken out ACEI on hold. Shall arrange office F/U with me in 2 weeks Procedures Date of Service Date of Service: 06/10/24
[2024-06-10 14:12] VITALS: BP 172/100; PULSE 105; RESP 18; TEMP 36.8; O2SAT 100
== END 2024-06-10 14:07 | disposition home or self-care (01) | DRG 206 ==
LOC: HO.ED 11:59 → HO.EDOVER 21:06
PROVIDERS: Admitting Provider Nurse Practitioner Acute Care; Emergency Provider Emergency Medicine; PCP Internal Medicine; Visit Provider Nurse Practitioner Acute Care
DX: T82.818A Embolism due to vascular prosthetic devices, implants and grafts, initial encounter (principal); I82.C11 Acute embolism and thrombosis of right internal jugular vein; N18.4 Chronic kidney disease, stage 4 (severe); E11.22 Type 2 diabetes mellitus with diabetic chronic kidney disease; F17.210 Nicotine dependence, cigarettes, uncomplicated; N40.0 Benign prostatic hyperplasia without lower urinary tract symptoms; K21.9 Gastro-esophageal reflux disease without esophagitis; Y82.8 Other medical devices associated with adverse incidents; I12.9 Hypertensive chronic kidney disease with stage 1 through stage 4 chronic kidney disease, or unspecified chronic kidney disease; Z71.6 Tobacco abuse counseling; Z79.82 Long term (current) use of aspirin; Z79.899 Other long term (current) drug therapy
CPT/HCPCS: 36415; 36589; 80053; 85025; 85027; 85610; 85730; 87040; 93971; 99285; J1644

== ENCOUNTER → 2024-06-09 08:56 | Outpatient (BNV) | payer MEDICAID, SELFPAY | PROVIDERS: Emergency Provider Emergency Medicine; PCP Internal Medicine; Visit Provider Radiology Vascular & Interventional Radiology | DX: I82.C11 Acute embolism and thrombosis of right internal jugular vein (principal) | CPT/HCPCS: 93971 ==

== ENCOUNTER 2024-06-09 21:01 | Outpatient (BNV) | payer MEDICAID, SELFPAY | END 2024-06-10 11:00 | PROVIDERS: Admitting Provider Nurse Practitioner Acute Care; Emergency Provider Emergency Medicine; PCP Internal Medicine; Visit Provider Physician Assistant Surgical | DX: Z45.2 Encounter for adjustment and management of vascular access device (principal) | CPT/HCPCS: 36589 ==

== ENCOUNTER → 2024-06-09 21:01 | Outpatient (BNV) | payer MEDICAID, SELFPAY | PROVIDERS: Admitting Provider Nurse Practitioner Acute Care; Emergency Provider Emergency Medicine; PCP Internal Medicine; Visit Provider Nurse Practitioner Acute Care | DX: I10 Essential (primary) hypertension (principal) | CPT/HCPCS: 99223; 99239 ==

== ENCOUNTER → 2024-06-09 21:01 | Outpatient (BNV) | payer MEDICAID, SELFPAY | PROVIDERS: Admitting Provider Nurse Practitioner Acute Care; Emergency Provider Emergency Medicine; PCP Internal Medicine; Visit Provider Internal Medicine Nephrology | DX: I82.C11 Acute embolism and thrombosis of right internal jugular vein (principal); N17.9 Acute kidney failure, unspecified | CPT/HCPCS: 99222 ==

== ENCOUNTER 2024-06-18 06:54 | Outpatient (REF) | payer MEDICAID, SELFPAY ==
[2024-06-18 07:37] LABS: Anion Gap 14 (12-20); Blood Urea Nitrogen 37 mg/dL (9-16); Calcium 9.5 mg/dL (8.4-10.2); Carbon Dioxide 23 mmol/L (22-29); Chloride 106 mmol/L (96-108); Estimated Glomerular Filt Rate 23; Potassium 4.2 mmol/L (3.3-5.1); Sodium 139 mmol/L (135-145)
== END 2024-06-18 06:55 | disposition home or self-care (01) ==
LOC: HO.LAB 06:54
PROVIDERS: PCP Internal Medicine; Visit Provider Internal Medicine Nephrology
DX: N17.9 Acute kidney failure, unspecified (principal)
CPT/HCPCS: 36415; 80051; 82310; 82565; 84520

== ENCOUNTER 2024-06-24 12:11 | Outpatient (AMB) | payer MEDICAID, SELFPAY ==
--- NOTE | 2024-06-24 12:18 | HO.NEPHOV ---
Vital Signs 06/24/24 12:26 Height 5 ft 10 in Weight 186 lb BMI 26.7 BP 140/90 H Blood Pressure Location Rt brachial Position Sitting Pulse 103 H Pulse Source Pulse Oximeter Pulse Oximetry (%) 97 Oxygen Delivery Method Room Air Intake Visit Reasons: CKD-Conf Head Of Operation And Logistics Required: No Accompanied by: Spouse Allergies lisinopril Allergy (Verified 06/24/24 12:26) Facial Swelling Do you need a note to return to daycare/school/sports/work: No HPI Comments Details: 59-year-old male with history of diabetes, hypertension who recently was admitted and treated for Acute renal failure with acute metabolic acidosis requiring acute hemodialysis which seems to be related more to ATN . He has significant improvement in his urine output and his serum creatinine steadily improved and stabilized. Permacath was placed on 06/02/24 & his last inpatient HD session on 06/03/24. He presented to ER with facial swelling and lip swelling which was thought to be angioedema from ACEI. At the last last office visit he had difficulty turning his neck as well as right sided neck swelling. He denied any SOB or hemoptysis. He was thought to have DVT in IJ which was confirmed by USS and his permcath was removed & was started on Elquis. He is seen in follow up today [facility] Medical History (Updated 06/24/24 @ 12:43 by Live Avina MD) Hypertension RAMONITA (acute kidney injury) Uncontrolled hypertension ESRD needing dialysis HLD (hyperlipidemia) Non-insulin dependent type 2 diabetes mellitus Asthma Social History Household Members: Family Housing: Apartment Do you presently have visiting nurse or other home services: No Alcohol intake: former Patient Tobacco Use Status: Current someday Tobacco user Tobacco use type: Cigarette Cigarette Packs Per Day: 1 Cigarettes Per Day: 9 e-Cigarette/Vaping Use: Never Used Second Hand Smoke Exposure: No service: No Current occupational status: employed Review of Systems Const All systems reviewed & are unremarkable except as noted in HPI and below Physical Exam Vital Signs: BMI result Body Mass Index 26.7 Const General: comfortable and no acute distress Orientation/consciousness: patient oriented x3 HEENT Head: Yes normocephalic Mouth: Normal oral and palatal mucosa present Eyes EOM: EOMs intact bilaterally Neck Neck: Yes supple Resp Auscultation: clear to auscultation bilaterally Cardio Jugular venous distension: no JVD Rate: regular rate GI Palpation (GI): Soft to palpation Auscultation: normal bowel sounds General: Yes no CVA tenderness Back/Spine/Pelvis Back: no CVA tenderness Skin General skin exam: no rashes or lesions noted Neuro General: patient oriented x3 and moves all extremities Extrem General: Yes no pedal edema Results Reviewed Nephrology Results: Hgb 9.7 g/dl (14.0-18.0) L 06/10/24 WBC 7.0 X10*3/uL (4.8-10.8) 06/10/24 Plt Count 375 X10*3/uL (160-400) 06/10/24 Sodium 139 mmol/L (135-145) 06/18/24 Potassium 4.2 mmol/L (3.3-5.1) 06/18/24 Chloride 106 mmol/L (96-108) 06/18/24 Carbon Dioxide 23 mmol/L (22-29) 06/18/24 BUN 37 mg/dL (9-16) H 06/18/24 Creatinine 2.88 mg/dL (0.5-1.4) H 06/18/24 Calcium 9.5 mg/dL (8.4-10.2) 06/18/24 Phosphorus 2.6 mg/dL (2.7-4.5) L 06/08/24 Assessment & Plan Assessment & Plan (1) RAMONITA (acute kidney injury): Code(s): N17.9 - Acute kidney failure, unspecified Category: Medical (2) CKD stage 3a, GFR 45-59 ml/min: Code(s): N18.31 - Chronic kidney disease, stage 3a Category: Medical (3) Hypertension: Code(s): I10 - Essential (primary) hypertension Category: Medical Qualifiers: Hypertension type: primary hypertension Qualified Code(s): I10 - Essential (primary) hypertension Plan RAMONITA due to ATN ( S/P renal biopsy)- recovering Likely has underlying diabetic kidney disease Urine output good; Has DVT of neck- On Elquis Permcath taken out; No ACEI/NSAID's Labs/ F/U with me in 1 month Orders: Orders Blood Urea Nitrogen 1 Month I10 - Essential (primary) hypertension, N18.31 - Chronic kidney disease, stage 3a Electrolytes 1 Month I10 - Essential (primary) hypertension, N18.31 - Chronic kidney disease, stage 3a Creatinine 1 Month I10 - Essential (primary) hypertension, N18.31 - Chronic kidney disease, stage 3a Coding Level of Care Code Est Pt Level 4 (91677) Diagnoses RAMONITA (acute kidney injury) N17.9 CKD stage 3a, GFR 45-59 ml/min N18.31 Primary hypertension I10 Hypertension type: primary hypertension
[2024-06-24 12:26] VITALS: BP 140/90; PULSE 103; O2SAT 97; BMI 26.7
--- OUTSIDE RECORDS SUMMARY | 2024-06-24 15:10 | XMS_ITS | Clinical Summary ---
Author Organization [facility] Address [address] [place] [address] Care Team Providers Care Greenhouse Grower Name Role Phone Dmitri Arzola MD Primary [...] complication, without long-term current use of insulin ([facility]) Pt is Diabetic . E11.9 1 Each 07/11/19 24 Active alcohol swabsIndications:T ype 2 diabetes mellitus without complication, without long-term current use of insulin ([facility]) Pt is Diabetic . E11.9 once a day 100 Each 1 07/11/19 24 Active lancets (FREESTYLE LANCETS) 28 gaugeIndications:T ype 2 diabetes mellitus without complication, without long-term current use of insulin ([facility]) Pt is Diabetic . E11.9 check once a day 100 Each 1 07/11/19 24 Active blood sugar diagnostic (FREESTYLE TEST) stripsIndications: Type 2 diabetes mellitus without complication, without long-term current use of insulin ([facility]) USE TO TEST ONCE A DAY 100 [...] occlusion of left anterior cerebral artery ([facility]),Mixed hyperlipidemia TAKE 1 TABLET BY MOUTH EVERY DAY 90 Tablet 1 03/06/20 24 Active lisinopriL 10 mg tabletIndications: Cerebrovascular accident (CVA) due to occlusion of left anterior cerebral artery ([facility]),Essentia l hypertension TAKE 1 TABLET BY MOUTH EVERY DAY 90 Tablet 1 03/16/20 24 Active metFORMIN (GLUCOPHAGE) 500 mg tabletIndications: Controlled type 2 diabetes mellitus without complication, without long-term current use of insulin ([facility]) TAKE 1 TABLET BY MOUTH TWICE A DAY WITH A MEAL 180 Tablet 05/04/19 25 Active Active Problems Problem Noted Date Diagnosed Date Arm DVT (deep venous thrombo embolism), acute, right ([facility]) 06/16/2024 Overview (06/16/2024): [facility] 06/09/2024 Admitted for Right sided neck pain and swelling . Sent to Er by Glass Installer Technician for concern of DVT Right Internal Jugular vein . Right IJ Perm Cath removed. Venous Duplex showed positive for DVT Right IJ Vein . Started on Eliquis 10 mg po bid for 7 days then 5 mg po bid Food insecurity 04/16/2024 Financial difficulties 04/16/2024 Cerebrovascular accident (CV A) due to occlusion of left anterior cerebral artery ([facility]) 09/26/2022 Overview (09/26/2022): Admitted [facility]- Admitted 09/21/22 and Woke up in middle of nite with Right leg weak. Attempted to walk but fell. Went to ER CTA of head and neck revealed suspected small acute infarct within Left parasagittal frontal parietal lobe in left FODR territory . Pt was given ASA 81 [...] 05/06/2019 Left shoulder pain 08/11/2017 Overview (08/11/2017): [facility] Xray negative in 2017 Controlled type 2 diabetes m melly, without long-term current use of insulin ([facility]) 01/04/2015 Lump 10/28/2014 Overview (10/28/2014): R foot US [facility] 09/2014: negative Mild intermittent asthma 09/28/2014 Overview [...] Description 04/16/2024 9:00 AM EST Office Visit [address] [phone] Ysabel Ash Food insecurity (Primary [...] 02/03/2024 9:07 AM EDT Plan of Treatment Upcoming Encounters Date Type Department Care Team (Late st Contact Info) Description 07/01/2024 10:40 AM EST Office Visit [address] [phone] Dmitri Arzola MD [address] [facility] [place] [address] 07/16/2024 9:00 AM EDT Office Visit [address] [place] [phone] Ysabel Ash [address] [place] [address] Health Maintenance Due Date Last Done Comments [...] 05/2022, 10/04/2016 Imm-Hepatitis B Completed 04/11/2023, 09/28/2022 [id number] Completed 01/08/2024, 03/29, 09/28/2022, Additional history exists Imm-Influenza Completed 01/08/2024, 11/28, 06/15/2021, Additional history exists Procedures Procedure Name Priority Date/Time Associated Diagnosis Comments LAB SCANNED DOCUMENT 06/18/2024 3:00 AM EST OTHER ORDERS SCANNED DOCUMENT 06/17/2024 3:00 AM EST OTHER ORDERS SCANNED DOCUMENT 06/17/2024 3:00 AM EST IMAGING SCANNED DOCUMENT 06/09/2024 3:00 AM EST IMAGING SCANNED DOCUMENT 06/09/2024 3:00 AM EST IMAGING SCANNED DOCUMENT 06/09/2024 3:00 AM EST IMAGING SCANNED DOCUMENT 06/09/2024 3:00 AM EST REFERRAL SCANNED DOCUMENT 06/08/2024 3:00 AM EST LAB SCANNED DOCUMENT 06/08/2024 3:00 AM EST HEALTH HISTORY SCANNED DOCUMENT 06/01/2024 3:00 AM [...] complication, without long-term current use of insulin ([facility]) FECAL GLOBIN BY IMMUNOCHEMISTRY (FIT) Routine 05/10/2024 7:00 PM EST Screen for colon cancer HEMOGLOBIN GLYCOSYLATED A1C Routine 02/03/2024 9:40 AM EDT Type 2 diabetes mellitus without complication, without long-term current use of insulin (HCC-CMS) COMPREHENSIVE METABOLIC PANEL Routine 04/11/2023 9:10 AM EST Routine general medical examination at a health care facility Primary hypertension Prediabetes Mixed hyperlipidemia Gastroesophageal reflux disease without esophagitis LIPID PANEL Routine 04/11/2023 9:10 AM EST Routine general medical examination at a health care facility Primary hypertension Mixed hyperlipidemia Cerebrovascular accident (CVA) due to occlusion of left anterior cerebral artery ([facility]) ANTIBODY HIV-1&HIV-2 SINGLE RESULT Routine 05/08/2019 9:55 AM EST Encounter for general adult medical examination w/o abnormal findings HEPATITIS A,B,C PANEL Routine 05/08/2019 9:55 AM EST Encounter for general adult medical examination w/o abnormal findings from Last 3 Months or Most Recently Relevant to Health Maintenance Results * LAB SCANNED DOCUMENT (06/18/2024 3:00 AM EST) Only the most recent of2 resultswithin the time period is included. 06/18/2024 3:00 AM EST us Dmitri Arzola MD SCAN LAB Final Result * OTHER ORDERS SCANNED DOCUMENT (06/17/2024 3:00 AM EST) Only the most recent of3 resultswithin the time period is included. 06/17/2024 3:00 AM EST us Dmitri Arzola MD SCAN OTHER ORDERS Final Result * IMAGING SCANNED DOCUMENT (06/09/2024 3:00 AM EST) Only the most recent of18 resultswithin the time period is included. 06/09/2024 3:00 AM EST Result Adilene Arzola MD SCAN IMAGING Final Result * REFERRAL SCANNED DOCUMENT (06/08/2024 3:00 AM EST) 06/08/2024 3:00 AM EST Result Adilene Arzola MD SCAN REFERRAL Final Result * HEALTH HISTORY SCANNED DOCUMENT (06/01/2024 3:00 AM EST) 06/01/2024 3:00 AM EST Result Adilene Arzola MD SCAN OTHER ORDERS Final Result * MICROALBUMIN/CREATININE RATIO, URINE, RANDOM (05/12/2024 8:40 AM EST) CREATININE, RANDOM URINE 125 20 - 320 mg/dL [facility] MICROALBUMIN 1.3 mg/dL [facility] [employer] [facility] Comment: Reference Range Not established MICROALBUMIN/CREA TININE RATIO, RANDOM URINE 10 <30 mg/g creat [facility] Comment: The ADA defines abnormalities in albumin [...] AM EST 05/12/2024 8:40 AM EST Narrative [employer] - 05/14/2024 6:43 PM EST SPLIT 02/03/2024 FROM [id number] Result Adilene Arzola MD LAB - NO BLOOD DRAW Final Resul t [facility] [address] [address], [employer] [address] [address] * FECAL GLOBIN BY IMMUNOCHEMISTRY (FIT) (05/10/2024 7:00 PM EST) FECAL GLOBIN BY IMMUNOCHEMISTRY See Note [facility] Comment: ??FECAL GLOBIN BY IMMUNOCHEMISTRY ?Micro Number: ?[id number] ??Test Status: ? Final ??Specimen Source: ?? Insure (tm) fobt test card ??Specimen Quality: ??Adequate ??Fecal Globin: ?Not Detected Stool Stool specimen / Unknown 05/10/2024 7:00 PM EST 05/14/2024 7:37 AM EST Dmitri Arzola MD LAB - NO BLOOD DRAW Final Resul t Performing Organization Address City/State/[facility] Co de Phone Number [facility] [address] [address], [employer] [address] [address] * (ABNORMAL) HEMOGLOBIN GLYCOSYLATED A1C (02/03/2024 9:40 AM EDT) HEMOGLOBIN A1C 7.3(H) <5.7 % of total Hgb [facility] Comment: For someone without known diabetes, a [...] AM EDT 02/03/2024 9:41 AM EDT Narrative [facility] [employer] - 02/04/2024 5:34 AM EDT FASTING:NO COLLECTION KIT GIVEN TO PATIENT. PATIENT ADVISED TO RETURN. us Dmitri Arzola MD LAB - BLOOD DRAW Final Result Performing Organization Address City/[facility]/ZIP Co de Phone Number [facility] [address] [address], [employer] [address] [address] * (ABNORMAL) LIPID PANEL (04/11/2023 9:10 AM EST) [facility] Signature CHOLESTEROL, TOTAL 138 <200 mg/dL [facility] HDL CHOLESTEROL 39(L) > OR = 40 mg/dL [employer] TRIGLYCERIDES 164(H) <150 mg/dL [facility] LDL-CHOLESTEROL 75 99 mg/dL (calc) [facility] Comment: Reference range: <100 Desirable range <100 mg/dL for primary prevention; ?? <70 mg/dL for patients with CHD or diabetic patients with > or = 2 CHD risk factors. LDL-C is now calculated using the Jennifer calculation, which is a validated novel method providing better accuracy than the Friedewald equation in the estimation of LDL-C. Nick RODRIGUEZ et al. RONALD. 2013;310(19): 3974-1413 (http://education.[facility]/faq/HBR283) CHOL/HDLC RATIO 3.5 <5.0 (calc) [facility] NON-HDL CHOLESTEROL 99 <130 mg/dL (calc) [facility] Comment: For patients with diabetes plus 1 major ASCVD risk factor, treating to a non-HDL-C goal of <100 mg/dL (LDL-C of <70 mg/dL) is considered a therapeutic option. Blood Blood / Unknown 04/11/2023 9 :10 AM EST 04/11/2023 9:11 AM EST Narrative [facility] - 04/12/2023 7:44 AM EST FASTING:NO us Dmitri Arzola MD LAB - BLOOD DRAW Final Result Performing Organization Address City/[facility]/ZIP Co de Phone Number [facility] [address] [address], [employer] [address] [address] * (ABNORMAL) COMPREHENSIVE METABOLIC PANEL (04/11/2023 9:10 AM EST) GLUCOSE 134 65 - 139 mg/dL [facility] Comment: ?Non-fasting reference interval UREA NITROGEN (BUN) 15 7 - 25 mg/dL [facility] CREATININE (blood) 1.03 0.70 - 1.30 mg/dL [facility] EGFR 84 > OR = 60 mL/min/1. 73m2 [facility] BUN/CREATININE RATIO SEE NOTE: [facility] Comment: ?? Not Reported: BUN and Creatinine are within ?? reference range. ? SODIUM 136 135 - 146 mmol/L [employer] POTASSIUM 4.4 3.5 - 5.3 mmol/L [facility] CHLORIDE 101 98 - 110 mmol/L [facility] CARBON DIOXIDE 26 20 - 32 mmol/L [facility] CALCIUM 9.6 8.6 - 10.3 mg/dL [facility] PROTEIN, TOTAL 6.9 6.1 - 8.1 g/dL [facility] ALBUMIN 4.6 3.6 - 5.1 g/dL [facility] GLOBULIN 2.3 1.9 - 3.7 g/dL (calc) [facility] ALBUMIN/GLOBULI N RATIO 2.0 1.0 - 2.5 (calc) [facility] BILIRUBIN, TOTAL 0.5 0.2 - 1.2 mg/dL [facility] ALKALINE PHOSPHATASE 88 35 - 144 U/L [facility] AST 19 10 - 35 U/L [facility] ALT 49(H) 9 - 46 U/L [facility] Blood Blood / Unknown 04/11/2023 9 :10 AM EST 04/11/2023 9:11 AM EST Narrative [facility] - 04/12/2023 7:44 AM EST FASTING:NO Dmitri Arzola MD LAB - BLOOD DRAW Edited Result - Final [facility] [address] [address], [employer] [facility] [address] [place] [address] * HEPATITIS A,B,C PANEL (05/08/2019 9:55 AM EST) HEPATITIS B SURFACE ANTIBODY NEGATIVE NEGATIVE [facility] HEPATITIS B SURFACE ANTIGEN NEGATIVE NEGATIVE [facility] Comment: Over the counter supplements containing high doses of biotin may interfere with this assay. ??If interference is suspected, patients shoud be retested after refraining from biotin supplements for 72 hours. HEPATITIS C VIRUS DIAGNOSTIC NEGATIVE NEGATIVE [facility] HEPATITIS A ANTIBODY TOTAL NEGATIVE NEGATIVE [facility] Comment: Over the counter supplements containing high doses of biotin may interfere with this assay. ??If interference is suspected, patients shoud be retested after refraining from biotin supplements for 72 hours. HEPATITIS B CORE ANTIBODY NEGATIVE NEGATIVE [facility] Blood specimen (specimen) Blood / Unknown 05/08/2019 9:55 AM EST 05/08/2019 10:[address] [facility] - 05/08/2019 1:59 PM EST [facility] [employer], [place] [address] Boat [employer] - Roslyn Live MD PT ID [id number] ORD# [id number] Lena Nascimento [facility] - BLOOD DRAW [place] [address], * HIV-1 & HIV-2 ANTIBODIES (05/08/2019 9:55 AM EST) HIV 1 AND 2 ANTIBODY SCREEN NONREACTIVE NONREACTIVE [facility] Comment: HIV testing performed at reference lab due to reagent backorder. Test performed at: [facility] [address] [place] [id number] Juan Carlos Martinez MD- Boat Rigger Blood specimen (specimen) Blood / Unknown 05/08/2019 9:55 AM EST 05/08/2019 10:[address] [facility] - 05/13/2019 2:51 PM EST [facility], a member of [address] [address] Boat Rigger - Roslyn Live MD PT ID [id number] ORD# [id number] Lena Nascimento [facility] - BLOOD DRAW Final Resu lt [facility] [address] [place] [address], from Last 3 Months or Most Recently Relevant to Health Maintenance Insurance [employer] [facility] [employer] Care Teams Greenhouse Grower Relationship Specialty Start Date End Date Dmitri Arzola MD [address] [facility] [address] [place] [address] PCP - General Internal Medicine 05/05/19
== END 2024-06-24 12:44 | disposition home or self-care (01) ==
PROVIDERS: PCP Internal Medicine; Visit Provider Internal Medicine Nephrology
DX: N17.9 Acute kidney failure, unspecified (principal); N18.31 Chronic kidney disease, stage 3a; I10 Essential (primary) hypertension
CPT/HCPCS: 99214

== ENCOUNTER → 2024-06-24 12:11 | Outpatient (BNVA) | payer MEDICAID, SELFPAY | PROVIDERS: PCP Internal Medicine; Visit Provider Internal Medicine Nephrology | DX: N17.9 Acute kidney failure, unspecified (principal); I12.9 Hypertensive chronic kidney disease with stage 1 through stage 4 chronic kidney disease, or unspecified chronic kidney disease; E11.22 Type 2 diabetes mellitus with diabetic chronic kidney disease; N18.31 Chronic kidney disease, stage 3a; I82.C19 Acute embolism and thrombosis of unspecified internal jugular vein; Z79.01 Long term (current) use of anticoagulants | CPT/HCPCS: 99212 ==

== ENCOUNTER 2024-07-15 07:00 | Outpatient (REF) | payer MEDICAID, SELFPAY ==
[2024-07-15 07:50] LABS: Anion Gap 12 (12-20); Blood Urea Nitrogen 30 mg/dL (9-16); Carbon Dioxide 24 mmol/L (22-29); Chloride 107 mmol/L (96-108); Estimated Glomerular Filt Rate 26; Potassium 3.7 mmol/L (3.3-5.1); Sodium 139 mmol/L (135-145)
== END 2024-07-15 07:01 | disposition home or self-care (01) ==
LOC: HO.LAB 07:00
PROVIDERS: PCP Internal Medicine; Visit Provider Internal Medicine Nephrology
DX: N17.9 Acute kidney failure, unspecified (principal)
CPT/HCPCS: 36415; 80051; 82565; 84520

== ENCOUNTER 2024-07-22 11:35 | Outpatient (AMB) | payer MEDICAID, SELFPAY ==
--- NOTE | 2024-07-22 11:40 | HO.NEPHOV_ITS ---
Vital Signs 07/22/24 11:42 Height 5 ft 10 in Weight 189 lb 4 oz BMI 27.2 BP 130/74 Blood Pressure Location Rt brachial Position Sitting Pulse 82 Pulse Source Pulse Oximeter Pulse Oximetry (%) 97 Oxygen Delivery Method Room Air Intake Visit Reasons: 1 mo fu-Conf Roll Tester Required: No Accompanied by: Significant Other Allergies lisinopril Allergy (Verified 07/22/24 11:42) Facial Swelling HPI Comments Details: 59-year-old male with history of diabetes, hypertension who recently was admitted and treated for Acute renal failure with acute metabolic acidosis requiring acute hemodialysis which seems to be related more to ATN . He has significant improvement in his urine output and his serum creatinine steadily improved and stabilized. Permacath was placed on 06/02/24 & his last inpatient HD session on 06/03/24. He presented to ER with facial swelling and lip swelling which was thought to be angioedema from ACEI. At the last last office visit he had difficulty turning his neck as well as right sided neck swelling. He denied any SOB or hemoptysis. He was thought to have DVT in IJ which was confirmed by USS and his permcath was removed & was started on Elquis. He has been having right flank pain and prostatic symptoms. He has stopped hydralazine and is replaced by atenolol. He is seen in follow up today [facility] Medical History (Updated 07/22/24 @ 12:14 by Live Avina MD) Hypertension RAMONITA (acute kidney injury) Uncontrolled hypertension ESRD needing dialysis HLD (hyperlipidemia) Non-insulin dependent type 2 diabetes mellitus Asthma Social History Household Members: Family Housing: Apartment Do you presently have visiting nurse or other home services: No Alcohol intake: former Patient Tobacco Use Status: Current someday Tobacco user Tobacco use type: Cigarette Cigarette Packs Per Day: 1 Cigarettes Per Day: 9 e-Cigarette/Vaping Use: Never Used Second Hand Smoke Exposure: No service: No Current occupational status: employed Review of Systems Const All systems reviewed & are unremarkable except as noted in HPI and below Physical Exam Vital Signs: Last Vital Signs Pulse 82 07/22/24 11:42 BP 130/74 07/22/24 11:42 Pulse Ox 97 07/22/24 11:42 Oxygen Delivery Method Room Air 07/22/24 11:42 BMI result Body Mass Index 27.2 Const General: comfortable and no acute distress Orientation/consciousness: patient oriented x3 HEENT Head: Yes normocephalic Mouth: Normal oral and palatal mucosa present Eyes EOM: EOMs intact bilaterally Neck Neck: Yes supple Resp Auscultation: clear to auscultation bilaterally Cardio Jugular venous distension: no JVD Rate: regular rate GI Palpation (GI): Soft to palpation Auscultation: normal bowel sounds General: Yes no CVA tenderness Back/Spine/Pelvis Back: no CVA tenderness Skin General skin exam: no rashes or lesions noted Neuro General: patient oriented x3 and moves all extremities Extrem General: Yes no pedal edema Results Reviewed Nephrology Results: Hgb 9.7 g/dl (14.0-18.0) L 06/10/24 WBC 7.0 X10*3/uL (4.8-10.8) 06/10/24 Plt Count 375 X10*3/uL (160-400) 06/10/24 Sodium 139 mmol/L (135-145) 07/15/24 Potassium 3.7 mmol/L (3.3-5.1) 07/15/24 Chloride 107 mmol/L (96-108) 07/15/24 Carbon Dioxide 24 mmol/L (22-29) 07/15/24 BUN 30 mg/dL (9-16) H 07/15/24 Creatinine 2.53 mg/dL (0.5-1.4) H 07/15/24 Calcium 9.5 mg/dL (8.4-10.2) 06/18/24 Assessment & Plan Assessment & Plan (1) Benign prostatic hyperplasia with lower urinary tract symptoms: Code(s): N40.1 - Benign prostatic hyperplasia with lower urinary tract symptoms Category: Medical Qualifiers: Lower urinary tract symptom detail: unspecified Qualified Code(s): N40.1 - Benign prostatic hyperplasia with lower urinary tract symptoms (2) CKD stage 3a, GFR 45-59 ml/min: Code(s): N18.31 - Chronic kidney disease, stage 3a Category: Medical (3) Proteinuria: Code(s): R80.9 - Proteinuria, unspecified Category: Medical Qualifiers: Proteinuria type: other Qualified Code(s): R80.8 - Other proteinuria (4) Hypertension: Code(s): I10 - Essential (primary) hypertension Category: Medical Qualifiers: Hypertension type: primary hypertension Qualified Code(s): I10 - Essential (primary) hypertension (5) Right flank pain: Code(s): R10.9 - Unspecified abdominal pain Category: Medical Plan RAMONITA due to ATN ( S/P renal biopsy)- recovering Likely has underlying diabetic kidney disease Urine output good; Has DVT of neck- On Elquis Permcath taken out; No ACEI/NSAID's Urology referral; CT abdomen ordered Will be a candidate for SGLT2 i soon Labs/ F/U with me in 2 month Orders: Orders Creatinine 2 Months I10 - Essential (primary) hypertension, N18.31 - Chronic kidney disease, stage 3a Electrolytes 2 Months I10 - Essential (primary) hypertension, N18.31 - Chronic kidney disease, stage 3a CT abdomen wo IV con Today R10.9 - Unspecified abdominal pain Complete Blood Count Auto Diff 2 Months I10 - Essential (primary) hypertension, N18.31 - Chronic kidney disease, stage 3a Blood Urea Nitrogen 2 Months I10 - Essential (primary) hypertension, N18.31 - Chronic kidney disease, stage 3a Protein Creatinine Ratio, Ur 2 Months I10 - Essential (primary) hypertension, N18.31 - Chronic kidney disease, stage 3a Referrals Urology Referral N40.1 - Benign prostatic hyperplasia with lower urinary tract symptoms Medications: Discontinued hydralazine Discontinued Reason: Doctor's Order 50 mg See Protocol PO TID 270 tabs 0RF Coding Level of Care Code Est Pt Level 4 (26282) Diagnoses Benign prostatic hyperplasia with lower urinary tract symptoms, symptom details unspecified N40.1 Lower urinary tract symptom detail: unspecified CKD stage 3a, GFR 45-59 ml/min N18.31 Other proteinuria R80.8 Proteinuria type: other Primary hypertension I10 Hypertension type: primary hypertension Right flank pain R10.9
[2024-07-22 11:42] VITALS: BP 130/74; PULSE 82; O2SAT 97; BMI 27.2
== END 2024-07-22 12:18 | disposition home or self-care (01) ==
LOC: HO.HKA 11:36
PROVIDERS: PCP Internal Medicine; Visit Provider Internal Medicine Nephrology
DX: N40.1 Benign prostatic hyperplasia with lower urinary tract symptoms (principal); N18.31 Chronic kidney disease, stage 3a; R80.8 Other proteinuria; I10 Essential (primary) hypertension; R10.9 Unspecified abdominal pain
CPT/HCPCS: 99214

== ENCOUNTER → 2024-07-22 11:35 | Outpatient (BNVA) | payer MEDICAID, SELFPAY | PROVIDERS: PCP Internal Medicine; Visit Provider Internal Medicine Nephrology | DX: N40.1 Benign prostatic hyperplasia with lower urinary tract symptoms (principal); R80.8 Other proteinuria; R10.9 Unspecified abdominal pain; I12.9 Hypertensive chronic kidney disease with stage 1 through stage 4 chronic kidney disease, or unspecified chronic kidney disease; N18.31 Chronic kidney disease, stage 3a | CPT/HCPCS: 99212 ==

== ENCOUNTER 2024-08-07 15:46 | Outpatient (REF) | payer MEDICAID, SELFPAY ==
--- NOTE | ~2024-08-07 | CT_ITS ---
EXAMINATION: CT ABDOMEN WITHOUT CONTRAST CLINICAL INFORMATION: Right flank pain COMPARISON: None available. TECHNIQUE: Contiguous axial thin section helical images of the abdomen were performed without contrast. The data set was reformatted in the coronal and sagittal planes and reviewed on an independent workstation. This CT examination was performed using dose optimization techniques as appropriate, variously including the following: *Automated exposure control *Adjustment of mA and/or kV according to patient size (this includes techniques or standardized protocols for targeted exams where dose is matched to indication/reason for exam; i.e. extremities or head) *Use of iterative reconstruction technique DLP 272 mGy/cm. FINDINGS: LUNG BASES: Focal patchy opacity left lung base likely developing infiltrates or atelectasis. A lesser findings in right lung base. Heart size is normal. No pleural or pericardial effusion seen. LIVER, GALLBLADDER, BILIARY TREE: The liver is normal size, density and contour. No perihepatic ascites seen. No focal lesion or intrahepatic ductal dilatation seen. The gallbladder is contracted with no radiopaque calculi. PANCREAS: The pancreas is normal size and density. No peripancreatic fluid collection. SPLEEN: The spleen is normal size. No focal lesion seen ADRENAL GLANDS AND KIDNEYS: . Bilateral adrenal glands are symmetrical and normal. Both kidneys are normal size, shape and position. No radiopaque calculi or hydronephrosis seen. BOWEL LOOPS: Scattered stool and gas in colon without significant distention. Few scattered diverticuli seen in colon. The small bowel loops are normal caliber. No free air or free fluid seen. Small umbilical hernia containing fat is noted. Appendix is not visualized LYMPH NODES: Normal. VASCULAR: Unremarkable. BONES: No lytic or sclerotic process seen. CT/CT abdomen wo IV con IMPRESSION: Scattered colonic diverticulosis without diverticulitis. No radiopaque urolith, hydronephrosis or gallstone. No acute intra-abdominal process seen. Fleischner guidelines were followed. Electronically signed by: Chuy Be MD 08/07/2024 04:24 PM EDT
--- OUTSIDE RECORDS SUMMARY | 2024-08-07 15:49 | XMS_ITS | Clinical Summary ---
Author Organization [facility] Address [address] [place] [address] Care Team Providers Care Gas Station Attendant Name Role Phone Dmitri Arzola MD Primary Care Provider Source Comments PLEASE NOTE, if this patient is a minor, it may be UNLAWFUL to discuss sensitive information that is contained in these records (such as FAMILY PLANNING, MENTAL HEALTH or SUBSTANCE ABUSE) with the minor patient's parent or other person without the patient's specific authorization.[facility] Allergies Active Allergy Reactions Criticality Noted Date Comments Lisinopril Swelling 07/01/2024 Medications omega-3s/dha/epa/ fish oil/D3 (VITAMIN-D + OMEGA-3 ORAL) 018 Active albuterol sulfate (ACCUNEB) 0.63 mg/3 mL nebulizer solutionIndicatio ns:Moderate persistent asthma without complication (HHS-HCC) Take 3 mL by nebulization every 6 (six) hours as needed for wheezing 100 Vial 1 020 Active nebulizer accessoriesIndica tions:Moderate persistent asthma without complication (HHS-HCC) FOR ASTHMA TREATMENT. 1 Device 020 Active nebulizer and compressorIndicat ions:Moderate persistent asthma without complication (HHS-HCC) FOR ASTHMA TREATMENT 1 Each 020 Active albuterol sulfate 90 mcg/actuation inhalerIndication s:Moderate persistent asthma without complication (HHS-HCC) Inhale 2 Puffs into the lungs every 4 to 6 (four to six) hours 18 g 2 020 Active miscellaneous medical supply miscIndications:P rimary hypertension by miscellaneous route once daily Dx: Hypertension, BERNADETTE: Lif[employer], Supply: Blood Pressure Kit 1 Each 022 Active ANORO ELLIPTA 62.5-25 mcg/actuation dsdvIndications:M oderate persistent asthma with acute exacerbation ([facility]) INHALE 1 PUFF BY MOUTH EVERY DAY 60 Each 3 022 Active aspirin 81 mg chewable tablet Take 81 mg by mouth once daily 023 Active blood-glucose meter monitoring kitIndications:Ty pe 2 diabetes mellitus without complication, without long-term current use of insulin ([facility]) Pt is Diabetic . E11.9 1 Each 024 Active omeprazole (PRILOSEC) [address] capsuleIndication s:Gastroesophagea l reflux disease without esophagitis TAKE 1 CAPSULE BY MOUTH EVERY DAY IN THE MORNING BEFORE BREAKFAST 90 Capsule 2 024 Active atorvastatin (LIPITOR) 80 mg tabletIndications :Cerebrovascular accident (CVA) due to occlusion of left anterior cerebral artery ([facility]),Mixed hyperlipidemia TAKE 1 TABLET BY MOUTH EVERY DAY 90 Tablet 1 024 Active ELIQUIS 5 mg tabIndications:Ar m DVT (deep venous thromboembolism), acute, right ([facility]) Take 1 Tablet by mouth 2 (two) times daily 60 Tablet 1 025 Active alcohol swabsIndications: Type 2 diabetes mellitus without complication, without long-term current use of insulin ([facility]) Pt is Diabetic . E11.9 once a day 100 Each 1 025 Active blood sugar diagnostic (FREESTYLE TEST) stripsIndications :Type 2 diabetes mellitus without complication, without long-term current use of insulin ([facility]) USE TO TEST ONCE A DAY 100 Each 11 025 Active lancets (FREESTYLE LANCETS) 28 gaugeIndications: Type 2 diabetes mellitus without complication, without long-term current use of insulin ([facility]) Pt is Diabetic . E11.9 check once a day 100 Each 1 025 Active atenoloL (TENORMIN) 50 mg tabletIndications :Primary hypertension Take 1 Tablet by mouth once daily 90 Tablet 025 Active amLODIPine (NORVASC) 10 mg tablet Take 10 mg by mouth once daily 025 Active hydrALAZINE (APRESOLINE) 50 mg tablet Take 50 mg by mouth 3 (three) times daily 025 Active tamsulosin (FLOMAX) 0.4 mg 24 hr capsule Take 0.8 mg by mouth nightly at bedtime 025 Active metFORMIN (GLUCOPHAGE) 500 mg tabletIndications :Controlled type 2 diabetes mellitus without complication, without long-term current use of insulin ([facility]) TAKE 1 TABLET BY MOUTH TWICE A DAY WITH FOOD 180 Tablet 025 Active metFORMIN (GLUCOPHAGE) 500 mg tabletIndications :Controlled type 2 diabetes mellitus without complication, without long-term current use of insulin ([facility]) TAKE 1 TABLET BY MOUTH TWICE A DAY WITH A MEAL 180 Tablet 025 2024 Discontinued hydroCHLOROthiazi de (HYDRODIURIL) 25 mg tabletIndications :Primary hypertension TAKE 1 TABLET BY MOUTH EVERY DAY 90 Tablet 1 025 2024 Discontinued(C ancelled) Active Problems Problem Noted Date Diagnosed Date Arm DVT (deep venous thrombo embolism), acute, right ([facility]) 06/16/2024 Overview (06/16/2024): [facility] 06/09/2024 Admitted for Right sided neck pain and swelling . Sent to Er by [employer] for concern of DVT Right Internal Jugular vein . Right IJ Perm Cath removed. Venous Duplex showed positive for DVT Right IJ Vein . Started on Eliquis 10 mg po bid for 7 days then 5 mg po bid Food insecurity 04/16/2024 Financial difficulties 04/16/2024 Cerebrovascular accident (CV A) due to occlusion of left anterior cerebral artery ([facility]) 09/26/2022 Overview (09/26/2022): Admitted [facility]- Admitted 09/21/22 and Woke up in [...] in 2017 Controlled type 2 diabetes m ellitus, without long-term current use of insulin ([facility]) 01/04/2015 Lump 10/28/2014 Overview (10/28/2014): R foot [facility] 09/2014: negative Mild intermittent asthma ([facility]) 09/28/2014 Overview (09/28/2014): Since childhood Gastroesophageal reflux disease without esophagi tis 09/28/2014 Overview (12/31/2014): SMA 2014 EGD:chronic gastritis: H pylori Colonoscopy: normal, f/u in 5 yrs Right knee pain 09/28/2014 Overview (09/28/2014): Had surgery (per pt removed liquid) in 2005 Resolved Problems Problem Noted Date Diagnosed Date Resolved Date Numbness of right lower extremity 06/10/2015 07/11/2023 Encounters Date Type Department Care Team Description 07/21/2024 Results Follow-Up [address] [phone] Dmitri Arzola MD 07/20/2024 9:20 AM EDT Office Visit [address] [phone] Dmitri Arzola MD Primary hypertension (Primary Dx); Right upper quadrant pain 07/01/2024 10:40 AM EST Office Visit [address] [address] Dmitri Arzola MD Hospital discharge follow-up (Primary Dx); Arm DVT (deep venous thromboembolism), acute, right ([facility]); Type 2 diabetes mellitus without complication, without long-term current use of insulin ([facility]); Immunization due; Health care maintenance 05/28/2024 Erroneous Telephone Encounter [address] [address] Kristian Haji, Front Office from Last 3 Months Immunizations Immunization Administration Dates Next Due Flu, Cell Culture [...] 09/28/2022 TDAP 05/06/2019 ZOSTER VACCINE, RECOMBINANT ([facility]) 5,02/03/2024 Family History Medical History Relation Name Comments Cancer Father colon/ prostate cancer Cancer Maternal Grandmother stomach cancer Diabetes Mother Hypertension Mother Relation Name Status Comments Father Alive Maternal Grandmother Mother Alive Social History Tobacco Use Types Packs/Day Years Used Date Smoking Tobacco: Every Day Cigarettes 0.3 30 Passive Smoke Exposure: Never Smokeless Tobacco: Never Tobacco Cessation:Ready to Q uit: Not Asked; Counseling Given: Not Answered Comments:Half a pack Alcohol Use Standard Drinks/Week [...] Sign Reading Time Taken Comments Blood Pressure 166/110 07/20/2024 8:55 AM EDT Pulse 100 07/20/2024 8:55 AM EDT Temperature 36.5 ??C (97.7 ??F) 07/20/2024 8:55 AM ED T Respiratory Rate 16 07/20/2024 8:55 AM EDT Oxygen Saturation 97% 07/20/2024 8:55 AM EDT Inhaled Oxygen Concentration - - Weight 81.6 kg (180 lb) 07/20/2024 8:55 AM EDT Height 175.3 cm (5' 9 ) 07/20/2024 8:55 AM EDT Body Mass Index 26.58 07/20/2024 8:55 AM EDT Plan of Treatment Upcoming Encounters Date Type Department Care Team (Late st Contact Info) Description 10/16/2024 9:00 AM EDT Office Visit [facility] [address] [place] [phone] Ysabel Ash [address] [place] [address] Health Maintenance Due Date Last Done Comments Anxiety Screening 1965 Dental Examination [address] Colonography 2010 Fecal DNA 2010 Flexible Sigmoidoscopy 2010 Colonoscopy 12/01/2019 11/30/2014 (Amelia ashton by Outside Provider) Annual Preventive Care Visit 04/11/2024, 06/15/2021, 05/06/2019, Additional history exists Lipid Screening 04/11/2024 04/11/2023, 05/30, 05/08/2019, Additional history exists Diabetes HbA1c 05/05/2024 02/03/2024, 03/29, 06/15/2021, Additional history exists Colorectal Cancer Screening 05/11/2024 Diabetes Foot Exam 07/10/2024 07/11/2023 Tobacco Cessation Counseling (#1) 02/02/2025 023, 05/06/2019 FIT/gFOBT 05/10/2025 05/10/2024, 0310/2021, 07/03/2021, Additional history exists Urine Albumin Creatinine Rat io Screening 05/12/2025 05/12/2024 Serum Creatinine 07/20/2025 07/20/2024, , 06/15/2021, Additional history exists Imm-DTaP/Tdap/Td (2 - Td or Tdap) 05/06/2029 020 HIV Screening Completed 05/08/2019 Hepatitis C Screening Completed 05/08/2019 Imm-Pneumococcal Completed 12/21/2022, 05/2022, 10/04/2016 Imm-Hepatitis B Completed 04/11/2023, 09/28/2022 Haf-[id number]-73 Completed 01/08/2024, 03/29, 09/28/2022, Additional history exists Imm-Influenza Completed 01/08/2024, 11/28, 06/15/2021, Additional history exists Alcohol and Drug Screen Completed 07/02/19 25, 07/11/2023, 09/28/2022, Additional history exists Depression Annual Screen Completed 025, 07/11/2023, 09/28/2014 Imm-Zoster, Recombinant Completed 07/01/2024, 02/02 Procedures Procedure Name Priority Date/Time Associated Diagnosis Comments REFERRAL SCANNED DOCUMENT 07/22/2024 3:00 AM EDT OTHER ORDERS SCANNED DOCUMENT 07/21/2024 3:00 AM EDT COMPREHENSIVE METABOLIC PANEL Routine 07/20/2024 9:18 AM EDT Primary hypertension Right upper quadrant pain LAB SCANNED DOCUMENT 07/15/2024 3:00 AM EDT OTHER ORDERS SCANNED DOCUMENT 06/25/2024 3:00 AM EST REFERRAL SCANNED DOCUMENT 06/24/2024 3:00 AM EST LAB SCANNED DOCUMENT 06/18/2024 3:00 AM EST OTHER ORDERS SCANNED DOCUMENT 06/17/2024 3:00 AM EST OTHER ORDERS SCANNED DOCUMENT 06/17/2024 3:00 AM EST IMAGING SCANNED DOCUMENT 06/10/2024 3:00 AM EST IMAGING SCANNED DOCUMENT 06/10/2024 3:00 AM EST IMAGING SCANNED DOCUMENT 06/09/2024 [...] complication, without long-term current use of insulin ([facility]) FECAL GLOBIN BY IMMUNOCHEMISTRY (FIT) Routine 05/10/2024 7:00 PM EST Screen for colon cancer HEMOGLOBIN GLYCOSYLATED A1C Routine 02/03/2024 9:40 AM EDT Type 2 diabetes mellitus without complication, without long-term current use of insulin ([facility]) LIPID PANEL Routine 04/11/2023 9:10 AM EST Routine general medical examination at a health care facility Primary hypertension Mixed hyperlipidemia Cerebrovascular accident (CVA) due to occlusion of left anterior cerebral artery ([facility]) ANTIBODY HIV-1&HIV-2 SINGLE RESULT Routine 05/08/2019 9:55 AM EST Encounter for general adult medical examination w/o abnormal findings HEPATITIS A,B,C PANEL Routine 05/08/2019 9:55 AM EST Encounter for general adult medical examination w/o abnormal findings from Last 3 Months or Most Recently Relevant to Health Maintenance Results * REFERRAL SCANNED DOCUMENT (07/22/2024 3:00 AM EDT) Only the most recent of3 resultswithin the time period is included. 07/22/2024 3:00 AM EDT Dmitri Arzola MD SCAN REFERRAL Final Result * OTHER ORDERS SCANNED DOCUMENT (07/21/2024 3:00 AM EDT) Only the most recent of5 resultswithin the time period is included. 07/21/2024 3:00 AM EDT Dmitri Arzola MD SCAN OTHER ORDERS Final Result * (ABNORMAL) COMPREHENSIVE METABOLIC PANEL (07/20/2024 9:18 AM EDT) GLUCOSE 133 65 - 139 mg/dL [employer] [facility] Comment: ?Non-fasting reference interval UREA NITROGEN (BUN) 41(H) 7 - 25 mg/dL [employer] [facility] CREATININE (blood) 2.99(H) 0.70 - 1.30 mg/dL [employer] [facility] EGFR 23(L) > OR = 60 mL/min/1. 73m2 [employer] [facility] BUN/CREATININE RATIO 14 6 - 22 (calc) [employer] SODIUM 135 135 - 146 mmol/L [facility] POTASSIUM 3.2(L) 3.5 - 5.3 mmol/L [facility] CHLORIDE 92(L) 98 - 110 mmol/L [facility] CARBON DIOXIDE 33(H) 20 - 32 mmol/L [facility] CALCIUM 9.6 8.6 - 10.3 mg/dL [facility] PROTEIN, TOTAL 7.4 6.1 - 8.1 g/dL [facility] ALBUMIN 4.7 3.6 - 5.1 g/dL [facility] GLOBULIN 2.7 1.9 - 3.7 g/dL (calc) [facility] ALBUMIN/GLOBULI N RATIO 1.7 1.0 - 2.5 (calc) [facility] BILIRUBIN, TOTAL 0.4 0.2 - 1.2 mg/dL [facility] ALKALINE PHOSPHATASE 99 35 - 144 U/L [facility] AST 15 10 - 35 U/L [facility] ALT 20 9 - 46 U/L [facility] Blood Blood / Unknown 07/20/2024 9 :18 AM EDT 07/20/2024 9:18 AM EDT Narrative [facility] - 07/21/2024 6:18 AM EDT FASTING:NO us Dmitri Arzola MD LAB - BLOOD DRAW Final Result [employer] [address] [address], [employer] [address] [address] * LAB SCANNED DOCUMENT (07/15/2024 3:00 AM EDT) Only the most recent of3 resultswithin the time period is included. 07/15/2024 3:00 AM EDT us Dmitri Arzola MD SCAN LAB Final Result * IMAGING SCANNED DOCUMENT (06/10/2024 3:00 AM EST) Only the most recent of20 resultswithin the time period is included. 06/10/2024 3:00 AM EST us Dmitri Arzola MD SCAN IMAGING Final Result * HEALTH HISTORY SCANNED DOCUMENT (06/01/2024 3:00 AM EST) 06/01/2024 3:00 AM EST us Dmitri Arzola MD SCAN OTHER ORDERS Final Result * MICROALBUMIN/CREATININE RATIO, URINE, RANDOM (05/12/2024 8:40 AM EST) CREATININE, RANDOM URINE 125 20 - 320 mg/dL [employer] MICROALBUMIN 1.3 mg/dL [facility] Comment: Reference Range Not established MICROALBUMIN/CREA TININE RATIO, RANDOM URINE 10 <30 mg/g creat [employer] Comment: The ADA defines abnormalities in albumin [...] AM EST 05/12/2024 8:40 AM EST Narrative [facility] - 05/14/2024 6:43 PM EST SPLIT 02/03/2024 FROM [id number] us Dmitri Arzola MD LAB - NO BLOOD DRAW Final Resul t [facility] [address] [place] [id number], [employer] [address] [place] [phone] * FECAL GLOBIN BY IMMUNOCHEMISTRY (FIT) (05/10/2024 7:00 PM EST) FECAL GLOBIN BY IMMUNOCHEMISTRY See Note [employer] Comment: ??FECAL GLOBIN BY IMMUNOCHEMISTRY ?Micro Number: ?[id number] ??Test Status: ? Final ??Specimen Source: ?? Insure (tm) fobt test card ??Specimen Quality: ??Adequate ??Fecal Globin: ?Not Detected Stool Stool specimen / Unknown 05/10/2024 7:00 PM EST 05/14/2024 7:37 AM EST us Dmitri Arzola MD LAB - NO BLOOD DRAW Final Resul t Performing Organization Address [facility] de Phone Number [facility] [address] [address], [employer] [address] [place] [phone] * (ABNORMAL) HEMOGLOBIN GLYCOSYLATED A1C (02/03/2024 9:40 AM EDT) HEMOGLOBIN A1C 7.3(H) <5.7 % of total Hgb [employer] Comment: For someone without known diabetes, a [...] AM EDT 02/03/2024 9:41 AM EDT Narrative [facility] - 02/04/2024 5:34 AM EDT FASTING:NO COLLECTION KIT GIVEN TO PATIENT. PATIENT ADVISED TO RETURN. us Dmitri Arzola MD LAB - BLOOD DRAW Final Result Performing Organization Address [facility] Co de Phone Number [facility] [address] [address], [employer] [address] [phone] * (ABNORMAL) LIPID PANEL (04/11/2023 9:10 AM EST) Pathologist [facility] CHOLESTEROL, TOTAL 138 <200 mg/dL [facility] HDL CHOLESTEROL 39(L) > OR = 40 mg/dL [facility] TRIGLYCERIDES 164(H) <150 mg/dL [facility] LDL-CHOLESTEROL 75 99 mg/dL (calc) [facility] Comment: Reference range: <100 Desirable range <100 mg/dL for primary prevention; ?? <70 mg/dL for patients with CHD or diabetic patients with > or = 2 CHD risk factors. LDL-C is now calculated using the Jennifer calculation, which is a validated novel method providing better accuracy than the Friedewald equation in the estimation of LDL-C. Nick SS et al. RONALD. 2013;310(19): 6106-6407 (http://education.[employer]/faq/XZS177) CHOL/HDLC RATIO 3.5 <5.0 (calc) [employer] [facility] NON-HDL CHOLESTEROL 99 <130 mg/dL (calc) [employer] [facility] Comment: For patients with diabetes plus 1 major ASCVD risk factor, treating to a non-HDL-C goal of <100 mg/dL (LDL-C of <70 mg/dL) is considered a therapeutic option. Blood Blood / Unknown 04/11/2023 9 :10 AM EST 04/11/2023 9:11 AM EST Narrative [employer] [facility] - 04/12/2023 7:44 AM EST FASTING:NO Dmitri Arzola MD LAB - BLOOD DRAW Final Result [facility] [address] [place] [id number], [employer] [facility] [address] [place] [address] * HEPATITIS A,B,C PANEL (05/08/2019 9:55 AM EST) Pathologist [facility] HEPATITIS B SURFACE ANTIBODY NEGATIVE NEGATIVE [facility] HEPATITIS B SURFACE ANTIGEN NEGATIVE NEGATIVE [facility] Comment: Over the counter supplements containing high doses of biotin may interfere with this assay. ??If interference is suspected, patients shoud be retested after refraining from biotin supplements for 72 hours. HEPATITIS C VIRUS DIAGNOSTIC NEGATIVE NEGATIVE [facility] HEPATITIS A ANTIBODY TOTAL NEGATIVE NEGATIVE [facility] Comment: Over the counter supplements containing high doses of biotin may interfere with this assay. ??If interference is suspected, patients shoud be retested after refraining from biotin supplements for 72 hours. HEPATITIS B CORE ANTIBODY NEGATIVE NEGATIVE [facility] Blood specimen (specimen) Blood / Unknown 05/08/2019 9:55 AM EST 05/08/2019 10:21 AM EST Narrative [facility] - 05/08/2019 1:59 PM EST [employer], [place] [address] [employer] - Roslyn Live MD PT ID [id number] ORD# [id number] Lena VILLASEÑOR LAB - BLOOD DRAW Edited Res ult - Final Performing Organization Address [facility] de Phone Number [address] [address], * HIV-1 & HIV-2 ANTIBODIES (05/08/2019 9:55 AM EST) [facility] HIV 1 AND 2 ANTIBODY SCREEN NONREACTIVE NONREACTIVE [facility] Comment: HIV testing performed at reference lab due to reagent backorder. Test performed at: [place] [address] Juan Carlos Martinez MD- [employer] Blood specimen (specimen) Blood / Unknown 05/08/2019 9:55 AM EST 05/08/2019 10:21 AM EST Narrative [facility] - 05/13/2019 2:51 PM EST [employer], [place] [address] [employer] - Roslyn Live MD PT ID [id number] ORD# [id number] Lena VILLASEÑOR LAB - BLOOD DRAW Final Resu lt Performing Organization Address [facility] de Phone Number [id number] [address] [place] [address], from Last 3 Months or Most Recently Relevant to Health Maintenance Insurance [id number] Care Teams Gas Station Attendant Relationship Specialty Start Date End Date Dmitri Arzola MD [address] [place] [address] PCP - General Internal Medicine 05/05/19
--- OUTSIDE RECORDS SUMMARY | 2024-08-07 15:49 | XMS_ITS | Encounter Summary ---
Author Organization [facility] Address [address] [place] [address] Care Team Providers Care Biometrician Name Role Phone Dmitri Arzola MD Primary Care Provider [phone] Encounter Details Date Type Department Care Team (Late st Contact Info) Description 07/21/2024 Results Follow-Up [facility] [address] [place] [id number] Dmitri Arzola MD [address] [facility] [place] [address] Social History Tobacco Use Types Packs/Day Years Used Date Smoking Tobacco: Every Day Cigarettes 0.3 30 Passive Smoke Exposure: Never Smokeless Tobacco: Never Comments:Half a pack Alcohol Use Standard Drinks/Week [...] Orientation Straight 03/15/2017 8: 21 AM PST documented as of this encounter Miscellaneous Notes * Result Encounter Note - Dmitri Arzola MD - 07/21/2024 7:03 AM EDT Creatinine 2.99 . K 2.2 HCTZ was stopped. Will monitor . Pt has an appointment to see Lacemaker documented in this encounter Plan of Treatment Upcoming Encounters Date Type Department Care Team (Late st Contact Info) Description 10/16/2024 9:00 AM EDT Office Visit [address] [address] Ysabel Ash [address] [place] [phone] documented as of this encounter Visit Diagnoses Not on filedocumented in this encounter Additional Health Concerns Assessment Noted Time PHQ-9 Depression Total Score: 0 07/02/19 10:31 AM PST documented as of this encounter Care Teams Biometrician Relationship Specialty Start Date End Date Dmitri Arzola MD [address] [place] [address] PCP - General Internal Medicine 05/05/19 documented as of this encounter
== END 2024-08-07 15:47 | disposition home or self-care (01) ==
LOC: HO.CT 15:46
PROVIDERS: PCP Internal Medicine; Visit Provider Internal Medicine Nephrology
DX: R10.9 Unspecified abdominal pain (principal)
CPT/HCPCS: 74150

== ENCOUNTER → 2024-08-07 15:48 | Outpatient (BNV) | payer MEDICAID, SELFPAY | PROVIDERS: PCP Internal Medicine; Visit Provider Radiology Diagnostic Radiology | DX: K57.30 Diverticulosis of large intestine without perforation or abscess without bleeding (principal) | CPT/HCPCS: 74150 ==

== ENCOUNTER 2024-09-10 06:50 | Outpatient (REF) | payer MEDICAID, SELFPAY ==
--- OUTSIDE RECORDS SUMMARY | 2024-09-10 06:53 | XMS_ITS | Clinical Summary ---
Author Organization [facility] Address [address] [place] [address] Care Team Providers Care Tool Maker Bench Name Role Phone Dmitri Arzola MD Primary [...] dsdvIndications:M oderate persistent asthma with acute exacerbation ([facility]) INHALE 1 PUFF BY MOUTH EVERY DAY 60 Each 3 022 Active aspirin 81 mg chewable tablet Take 81 mg by mouth once daily 023 Active blood-glucose meter monitoring kitIndications:Ty pe 2 diabetes mellitus without complication, without long-term current use of insulin ([facility]) Pt is Diabetic . E11.9 1 Each 024 Active omeprazole (PRILOSEC) [address] capsuleIndication s:Gastroesophagea l reflux disease without esophagitis TAKE 1 CAPSULE BY MOUTH EVERY DAY IN THE MORNING BEFORE BREAKFAST 90 Capsule 2 024 Active ELIQUIS 5 mg tabIndications:Ar m DVT (deep venous thromboembolism), acute, right ([facility]) Take 1 Tablet by mouth 2 (two) times daily 60 Tablet 1 025 Active alcohol swabsIndications: Type 2 diabetes mellitus without complication, without long-term current use of insulin ([facility]) Pt is Diabetic . E11.9 once a day 100 Each 1 025 Active blood sugar diagnostic (FREESTYLE TEST) stripsIndications :Type 2 diabetes mellitus without complication, without long-term current use of insulin ([facility]) USE TO TEST ONCE A DAY 100 Each 11 025 Active lancets (FREESTYLE LANCETS) 28 gaugeIndications: Type 2 diabetes mellitus without complication, without long-term current use of insulin ([facility]) Pt is Diabetic . E11.9 [...] complication, without long-term current use of insulin ([facility]) TAKE 1 TABLET BY MOUTH TWICE A DAY WITH FOOD 180 Tablet 025 Active atorvastatin (LIPITOR) 80 mg tabletIndications :Cerebrovascular accident (CVA) due to occlusion of left anterior cerebral artery ([facility]),Mixed hyperlipidemia TAKE 1 TABLET BY MOUTH EVERY DAY 90 Tablet 1 025 Active atorvastatin (LIPITOR) 80 mg tabletIndications :Cerebrovascular accident (CVA) due to occlusion of left anterior cerebral artery ([facility]-CMS),Mixed hyperlipidemia TAKE 1 TABLET BY MOUTH EVERY DAY 90 Tablet 1 024 2024 Discontinued Active Problems Problem Noted Date Diagnosed Date Arm DVT (deep venous thrombo embolism), acute, right ([facility]) 06/16/2024 Overview (06/16/2024): [facility] 06/09/2024 Admitted for Right sided neck pain and swelling . Sent to Er by Junior Account Manager for concern of DVT Right Internal Jugular vein . Right IJ Perm Cath removed. Venous Duplex showed positive for DVT Right IJ Vein . Started on Eliquis 10 mg po bid for 7 days then 5 mg po bid Food insecurity 04/16/2024 Financial difficulties 04/16/2024 Cerebrovascular accident (CV A) due to occlusion of left anterior cerebral artery ([facility]) 09/26/2022 Overview (09/26/2022): Admitted [facility]- Admitted 09/21/22 and Woke up in [...] in 2017 Controlled type 2 diabetes m yoselinitus, without long-term current use of insulin ([facility]) 01/04/2015 Lump 10/28/2014 Overview (10/28/2014): R foot [facility] 09/2014: negative Mild intermittent asthma ([facility]) 09/28/2014 Overview (09/28/2014): Since childhood Gastroesophageal reflux [...] Department Care Team Description 07/21/2024 Results Follow-Up [address] [id number] Dmitri Arzola MD 07/20/2024 9:20 AM EDT Office Visit [address] [phone] Dmitri Arzola MD Primary hypertension (Primary Dx); Right upper quadrant pain 07/01/2024 10:40 AM EST Office Visit [address] [phone] Dmitri Arzola MD Hospital discharge follow-up (Primary Dx); Arm DVT (deep venous thromboembolism), acute, right ([facility]); Type 2 diabetes mellitus without complication, without long-term current use of insulin ([facility]); Immunization due; Health care maintenance from Last 3 Months Immunizations Immunization Administration Dates Next Due Flu, Cell Culture based, Pre servative Free, 6m+, Flucelvax 12/21/2022 Flu, Preservative Free 06/15/2021,04/21/2018, Hep B,adult,adjuvanted (HEPLISAV) 04/11/2023,05/2022 INFLUENZA, SEASONAL, INJECTABLE 02/27/2016 PFIZER COVID VACCINE, PURPLE CAP, 12+ 06/16/2021 ,06/16/2021 PNEUMOCOCCAL CONJUGATE PCV 20 (Prevnar) 12/22/19 23,09/28/2022 PNEUMOCOCCAL POLYSACCHARIDE PPV23 (Pneumovax 23) 10/04/2016 Pfizer COVID-19 (Comirnaty), Mrna, Lnp-s, Pf, Maximiliano-sucrose, 30 Mcg/0.3 Ml, 12yr+ 04/11/2023 [facility] Diabetes COVID-19 Vac cine Bivalent, (CORCORAN PFIZER-BIONTECH COVID-19 [...] Description 10/16/2024 9:00 AM EDT Office Visit [facility] [address] [place] [address] Ysabel Ash [address] [place] [address] Health Maintenance Due Date Last Done Comments [...] (#1) 02/02/2025 023, 05/06/2019 FIT/gFOBT 05/10/2025 05/10/2024, 03/0 10/2021, 07/03/2021, Additional history exists Urine Albumin Creatinine Rat io Screening 05/12/2025 05/12/2024 Anxiety Screening 07/01/2025 07/01/2024 Serum Creatinine 07/20/2025 07/20/2024, , 06/15/2021, Additional history exists Imm-DTaP/Tdap/Td (2 - Td or Tdap) 05/06/2029 020 HIV Screening Completed 05/08/2019 Hepatitis C Screening Completed 05/08/2019 Imm-Pneumococcal Completed 12/21/2022, 05/2022, 10/04/2016 Imm-Hepatitis B Completed 04/11/2023, 09/28/2022 [id number] Completed 01/08/2024, 03/29, 09/28/2022, Additional history exists Imm-Influenza Completed 01/08/2024, 11/28, 06/15/2021, Additional history exists Alcohol and Drug Screen Completed 07/02/19 25, 07/11/2023, 09/28/2022, Additional history exists Depression Annual Screen Completed 025, 07/11/2023, 09/28/2014 Imm-Zoster, Recombinant Completed 07/01/2024, 02/02 Procedures Procedure Name Priority Date/Time Associated Diagnosis Comments IMAGING SCANNED DOCUMENT 08/07/2024 3:00 AM EDT REFERRAL SCANNED DOCUMENT 07/22/2024 3:00 AM EDT [...] ORDERS SCANNED DOCUMENT 06/17/2024 3:00 AM EST MICROALBUMIN/CREATININE RATIO, URINE, RANDOM Routine 05/12/2024 8:40 AM EST Type 2 diabetes mellitus without complication, without long-term current use of insulin ([facility]) FECAL GLOBIN BY IMMUNOCHEMISTRY (FIT) Routine 05/10/2024 7:00 PM EST Screen for colon cancer HEMOGLOBIN GLYCOSYLATED A1C Routine 02/03/2024 9:40 AM EDT Type 2 diabetes mellitus without complication, without long-term current use of insulin ([facility]) LIPID PANEL Routine 04/11/2023 9:10 AM EST Routine general medical examination at a [facility] facility Primary hypertension Mixed hyperlipidemia Cerebrovascular accident (CVA) due to occlusion of left anterior cerebral artery ([facility]) ANTIBODY HIV-1&HIV-2 SINGLE RESULT Routine 05/08/2019 9:55 AM EST Encounter for general adult medical examination w/o abnormal findings HEPATITIS A,B,C PANEL Routine 05/08/2019 9:55 AM EST Encounter for general adult medical examination w/o abnormal findings from Last 3 Months or Most Recently Relevant to Health Maintenance Results * IMAGING SCANNED DOCUMENT (08/07/2024 3:00 AM EDT) 08/07/2024 3:00 AM EDT us Dmitri Arzola MD SCAN IMAGING Final Result * REFERRAL SCANNED DOCUMENT (07/22/2024 3:00 AM EDT) Only the most recent of2 resultswithin the time period is included. 07/22/2024 3:00 AM EDT us mDitri Arzola MD SCAN REFERRAL Final Result * OTHER ORDERS SCANNED DOCUMENT (07/21/2024 3:00 AM EDT) Only the most recent of4 resultswithin the time period is included. 07/21/2024 3:00 AM EDT us Dmitri Arzola MD SCAN OTHER ORDERS Final Result * (ABNORMAL) COMPREHENSIVE METABOLIC PANEL (07/20/2024 9:18 AM EDT) GLUCOSE 133 65 - 139 mg/dL [facility] Comment: ?Non-fasting reference interval UREA NITROGEN (BUN) 41(H) 7 - 25 mg/dL [facility] CREATININE (blood) 2.99(H) 0.70 - 1.30 mg/dL [facility] EGFR 23(L) > OR = 60 mL/min/1. 73m2 [facility] BUN/CREATININE RATIO 14 6 - 22 (calc) [facility] SODIUM 135 135 - 146 mmol/L [facility] POTASSIUM 3.2(L) 3.5 - 5.3 mmol/L [facility] CHLORIDE 92(L) 98 - 110 mmol/L [facility] CARBON DIOXIDE 33(H) 20 - 32 mmol/L [facility] CALCIUM 9.6 8.6 - 10.3 mg/dL [facility] PROTEIN, TOTAL 7.4 6.1 - 8.1 g/dL [facility] ALBUMIN 4.7 3.6 - 5.1 g/dL [facility] GLOBULIN 2.7 1.9 - 3.7 g/dL (calc) [facility] ALBUMIN/GLOBULI N RATIO 1.7 1.0 - 2.5 (calc) [facility] BILIRUBIN, TOTAL 0.4 0.2 - 1.2 mg/dL [facility] ALKALINE PHOSPHATASE 99 35 - 144 U/L [facility] AST 15 10 - 35 U/L [facility] ALT 20 9 - 46 U/L [facility] Blood Blood / Unknown 07/20/2024 9 :18 AM EDT 07/20/2024 9:18 AM EDT Narrative [employer] [facility] - 07/21/2024 6:18 AM EDT FASTING:NO us Dmitri Arzola MD LAB - BLOOD DRAW Final Result [employer] [address] [address], [place] [facility] [address] [place] [address] * LAB SCANNED DOCUMENT (07/15/2024 3:00 AM EDT) Only the most recent of2 resultswithin the time period is included. 07/15/2024 3:00 AM EDT us Dmitri Arzola MD SCAN LAB Final Result * MICROALBUMIN/CREATININE RATIO, URINE, RANDOM (05/12/2024 8:40 AM EST) CREATININE, RANDOM URINE 125 20 - 320 mg/dL [facility] MICROALBUMIN 1.3 mg/dL [employer] [facility] Comment: Reference Range Not established MICROALBUMIN/CREA TININE RATIO, RANDOM URINE 10 <30 mg/g creat [employer] Comment: The ADA defines abnormalities in albumin [...] AM EST 05/12/2024 8:40 AM EST Narrative [employer] - 05/14/2024 6:43 PM EST SPLIT 02/03/2024 FROM [id number] us Dmitri Arzola MD LAB - NO BLOOD DRAW Final Resul t [employer] [address] [address], [place] [facility] [address] [place] [address] * FECAL GLOBIN BY IMMUNOCHEMISTRY (FIT) (05/10/2024 7:00 PM EST) FECAL GLOBIN BY IMMUNOCHEMISTRY See Note [facility] Comment: ??FECAL GLOBIN BY IMMUNOCHEMISTRY ?Micro Number: ?[id number] ??Test Status: ? Final ??Specimen Source: ?? Insure (tm) fobt test card ??Specimen Quality: ??Adequate ??Fecal Globin: ?Not Detected Stool Stool specimen / Unknown 05/10/2024 7:00 PM EST 05/14/2024 7:37 AM EST Dmitri Arzola MD LAB - NO BLOOD DRAW Final Resul t Performing Organization Address [facility] de Phone Number [employer] [address] [place] [phone], [employer] [address] [place] [phone] * (ABNORMAL) HEMOGLOBIN GLYCOSYLATED A1C (02/03/2024 9:40 AM EDT) HEMOGLOBIN A1C 7.3(H) <5.7 % of total Hgb [facility] Comment: For someone without known diabetes, a [...] AM EDT 02/03/2024 9:41 AM EDT Narrative [employer] - 02/04/2024 5:34 AM EDT FASTING:NO COLLECTION KIT GIVEN TO PATIENT. PATIENT ADVISED TO RETURN. Dmitri Arzola MD LAB - BLOOD DRAW Final Result Performing Organization Address [facility] Co de Phone Number [employer] [address] [place] [phone], [employer] [address] [place] [phone] * (ABNORMAL) LIPID PANEL (04/11/2023 9:10 AM EST) Pathologist [facility] CHOLESTEROL, TOTAL 138 <200 mg/dL [facility] HDL CHOLESTEROL 39(L) > OR = 40 mg/dL [facility] TRIGLYCERIDES 164(H) <150 mg/dL [facility] LDL-CHOLESTEROL 75 99 mg/dL (calc) [facility] Comment: Reference range: <100 Desirable range <100 mg/dL for primary prevention; ?? <70 mg/dL for patients with CHD or diabetic patients with > or = 2 CHD risk factors. LDL-C is now calculated using the Jennifer calculation, which is a validated novel method providing better accuracy than the Friedewald equation in the estimation of LDL-C. Nick SS et al. RONALD. 2013;310(19): 6206-2558 (http://education.Arkadium/faq/LKR022) CHOL/HDLC RATIO 3.5 <5.0 (calc) [facility] NON-HDL CHOLESTEROL 99 <130 mg/dL (calc) [facility] Comment: For patients with diabetes plus 1 major ASCVD risk factor, treating to a non-HDL-C goal of <100 mg/dL (LDL-C of <70 mg/dL) is considered a therapeutic option. Blood Blood / Unknown 04/11/2023 9 :10 AM EST 04/11/2023 9:11 AM EST Narrative [employer] [facility] - 04/12/2023 7:44 AM EST FASTING:NO Dmitri Arzola MD LAB - BLOOD DRAW Final Result [facility] [address] [address], [facility] [address] [address] * HEPATITIS A,B,C PANEL (05/08/2019 9:55 AM EST) [facility] HEPATITIS B SURFACE ANTIBODY NEGATIVE NEGATIVE [facility] HEPATITIS B SURFACE ANTIGEN NEGATIVE NEGATIVE [facility] Comment: Over the counter supplements containing high doses of biotin may interfere with this assay. ??If interference is suspected, patients shoud be retested after refraining from biotin supplements for 72 hours. HEPATITIS C VIRUS DIAGNOSTIC NEGATIVE NEGATIVE [facility] HEPATITIS A ANTIBODY TOTAL NEGATIVE NEGATIVE [facility] Comment: Over the counter supplements containing high doses of biotin may interfere with this assay. ??If interference is suspected, patients shoud be retested after refraining from biotin supplements for 72 hours. HEPATITIS B CORE ANTIBODY NEGATIVE NEGATIVE [facility] Blood specimen (specimen) Blood / Unknown 05/08/2019 9:55 AM EST 05/08/2019 10:21 AM EST Narrative [facility] - 05/08/2019 1:59 PM EST [employer], [place] [address] Oyster Washer - Roslyn Live MD PT ID [id number] ORD# [id number] Lena VILLASEÑOR LAB - BLOOD DRAW [place] [address], * HIV-1 & HIV-2 ANTIBODIES (05/08/2019 9:55 AM EST) HIV 1 AND 2 ANTIBODY SCREEN NONREACTIVE NONREACTIVE [facility] Comment: HIV testing performed at reference lab due to reagent backorder. Test performed at: [facility] [address] [place] [address] Juan Carlos Martinez MD- Oyster Washer Blood specimen (specimen) Blood / Unknown 05/08/2019 9:55 AM EST 05/08/2019 10:21 AM EST Narrative [facility] 05/13/2019 2:51 PM EST [employer], [place] [address] Oyster Washer - Roslyn Live MD PT ID [id number] ORD# [id number] Lena Ndissi CULTURE MANAGER LAB - BLOOD DRAW Final Resu lt [facility] [address] [place] [address], from Last 3 Months or Most Recently Relevant to Health Maintenance Insurance [id number] Care Teams Tool Maker Bench Relationship Specialty Start Date End Date Dmitri Arzola MD [address] [place] [address] PCP - General Internal Medicine 05/05/19
[2024-09-10 07:04] LABS: MANUAL DIFF FLAG NO
[2024-09-10 07:18] LABS: Basophils Percent Auto 0.5 % (0-2); Eosinophils Absolute Auto 0.1 X10*3/uL (0.0-0.4); Eosinophils Percent Auto 2.3 % (0-4); Hematocrit 41.3 % (42.0-52.0); Hemoglobin 13.5 g/dl (14.0-18.0); Imm Gran Abs Auto 0.01 X10*3/uL (0.00-0.03); Imm Gran Pct Auto 0.2 % (0.0-0.4); Lymphocytes Absolute Auto 3.1 X10*3/uL (1.2-4.9); Lymphocytes Percent Auto 55.7 % (20-40); Mean Corpuscular HGB Conc 32.7 g/dl (31.0-36.0); Mean Corpuscular Hemoglobin 27.8 pg (27.0-33.0); Mean Corpuscular Volume 85.2 fL (80.0-98.0); Mean Platelet Volume 9.2 fL (9.4-12.4); Monocytes Absolute Auto 0.4 X10*3/uL (0.1-1.2); Monocytes Percent Auto 6.6 % (2-11); Neutrophils Absolute Auto 1.9 x10*3/uL (2.0-8.3); Neutrophils Percent Auto 34.7 % (45-73); Platelet Count 282 X10*3/uL (160-400); Red Blood Count 4.85 X10*6/uL (4.60-5.80); Red Cell Distribution Width 13.6 % (11.0-16.0); White Blood Count 5.6 X10*3/uL (4.8-10.8)
[2024-09-10 07:39] LABS: Anion Gap 15 (12-20); Blood Urea Nitrogen 27 mg/dL (9-16); Carbon Dioxide 24 mmol/L (22-29); Chloride 106 mmol/L (96-108); Estimated Glomerular Filt Rate 28; Potassium 3.7 mmol/L (3.3-5.1); Sodium 141 mmol/L (135-145)
== END 2024-09-10 06:51 | disposition home or self-care (01) ==
LOC: HO.LAB 06:50
PROVIDERS: PCP Internal Medicine; Visit Provider Internal Medicine Nephrology
DX: N18.31 Chronic kidney disease, stage 3a (principal); I10 Essential (primary) hypertension
CPT/HCPCS: 36415; 80051; 82565; 84520; 85025

== ENCOUNTER 2024-09-11 08:44 | Outpatient (REF) | payer MEDICAID, SELFPAY ==
--- OUTSIDE RECORDS SUMMARY | 2024-09-11 08:59 | XMS_ITS | Clinical Summary ---
Author Organization [facility] Address [address] [place] [address] Care Team Providers Care Combat Systems Operator Mine Warfare Name Role Phone Dmitri Arzola MD Primary [...] dsdvIndications:M oderate persistent asthma with acute exacerbation ([facility]) INHALE 1 PUFF BY MOUTH EVERY DAY 60 Each 3 022 Active aspirin 81 mg chewable tablet Take 81 mg by mouth once daily 023 Active blood-glucose meter monitoring kitIndications:Ty pe 2 diabetes mellitus without complication, without long-term current use of insulin ([facility]) Pt is Diabetic . E11.9 1 Each 024 Active omeprazole (PRILOSEC) [address] capsuleIndication s:Gastroesophagea l reflux disease without esophagitis TAKE 1 CAPSULE BY MOUTH EVERY DAY IN THE MORNING BEFORE BREAKFAST 90 Capsule 2 024 Active ELIQUIS 5 mg tabIndications:Ar m DVT (deep venous thromboembolism), acute, right ([facility]) Take 1 Tablet by mouth 2 (two) times daily 60 Tablet 1 025 Active alcohol swabsIndications: Type 2 diabetes mellitus without complication, without long-term current use of insulin ([facility]) Pt is Diabetic . E11.9 once a day 100 Each 1 025 Active blood sugar diagnostic (FREESTYLE TEST) stripsIndications :Type 2 diabetes mellitus without complication, without long-term current use of insulin ([facility]) USE TO TEST ONCE A DAY 100 Each 11 025 Active lancets (FREESTYLE LANCETS) 28 gaugeIndications: Type 2 diabetes mellitus without complication, without long-term current use of insulin ([facility]) Pt is Diabetic . E11.9 [...] complication, without long-term current use of insulin ([facility]) TAKE 1 TABLET BY MOUTH TWICE [...] DVT (deep venous thrombo embolism), acute, right ([facility]) 06/16/2024 Overview (06/16/2024): [facility] 06/09/2024 Admitted for Right sided neck pain and swelling . Sent to Er by Silk Screen Layout Drafter for concern of DVT Right Internal Jugular vein . Right IJ Perm Cath removed. Venous Duplex showed positive for DVT Right IJ Vein . Started on Eliquis 10 mg po bid for 7 days then 5 mg po bid Food insecurity 04/16/2024 Financial difficulties 04/16/2024 Cerebrovascular accident (CV A) due to occlusion of left anterior cerebral artery ([facility]) 09/26/2022 Overview (09/26/2022): Admitted [facility]- Admitted 09/21/22 and Woke up [...] yoselinitus, without long-term current use of insulin ([facility]) 01/04/2015 Lump 10/28/2014 Overview (10/28/2014): R foot [facility] 09/2014: negative Mild intermittent asthma ([facility]) 09/28/2014 Overview (09/28/2014): Since childhood Gastroesophageal reflux [...] Department Care Team Description 07/21/2024 Results Follow-Up [address] [address] Dmitri Arzola MD 07/20/2024 9:20 AM EDT Office Visit [address] [address] Dmitri Arzola MD Primary hypertension (Primary Dx); Right upper quadrant pain 07/01/2024 10:40 AM EST Office Visit [address] [address] Dmitri Arzola MD Hospital discharge follow-up (Primary Dx); Arm DVT (deep venous thromboembolism), acute, right ([facility]); Type 2 diabetes mellitus without complication, without long-term current use of insulin ([facility]); Immunization due; Health care maintenance from Last [...] Pf, Maximiliano-sucrose, 30 Mcg/0.3 Ml, 12yr+ 04/11/2023 Rocketick-WiMi5 COVID-19 Vac cine Bivalent, ([employer]ION[employer] COVID-19 [...] Description 10/16/2024 9:00 AM EDT Office Visit [facility] [address] [place] [address] Ysabel Ash [address] [place] [address] Health Maintenance Due Date Last Done Comments [...] 05/2022, 10/04/2016 Imm-Hepatitis B Completed 04/11/2023, 09/28/2022 [id number] Completed 01/08/2024, 03/29, 09/28/2022, Additional history exists [...] complication, without long-term current use of insulin ([facility]) FECAL GLOBIN BY IMMUNOCHEMISTRY (FIT) Routine 05/10/2024 7:00 PM EST Screen for colon cancer HEMOGLOBIN GLYCOSYLATED A1C Routine 02/03/2024 9:40 AM EDT Type 2 diabetes mellitus without complication, without long-term current use of insulin ([facility]) LIPID PANEL Routine 04/11/2023 9:10 AM EST Routine general medical examination at a [facility] facility Primary hypertension Mixed hyperlipidemia Cerebrovascular accident (CVA) due to occlusion of left anterior cerebral artery ([facility]) ANTIBODY HIV-1&HIV-2 SINGLE RESULT Routine [...] is included. 07/22/2024 3:00 AM EDT us Dmitri Arzola MD SCAN REFERRAL Final Result * OTHER ORDERS SCANNED DOCUMENT (07/21/2024 3:00 AM EDT) Only the most recent of4 resultswithin the time period is included. 07/21/2024 3:00 AM EDT us Dmitri Arzola MD SCAN OTHER ORDERS Final Result * (ABNORMAL) COMPREHENSIVE METABOLIC PANEL (07/20/2024 9:18 AM EDT) GLUCOSE 133 65 - 139 mg/dL [facility] Comment: ?Non-fasting reference interval UREA NITROGEN (BUN) 41(H) 7 - 25 mg/dL [facility] CREATININE (blood) 2.99(H) 0.70 - 1.30 mg/dL [facility] EGFR 23(L) > OR = 60 mL/min/1. 73m2 [facility] BUN/CREATININE RATIO 14 6 - 22 (calc) [facility] SODIUM 135 135 - 146 mmol/L [facility] POTASSIUM 3.2(L) 3.5 - 5.3 mmol/L [facility] CHLORIDE 92(L) 98 - 110 mmol/L [facility] CARBON DIOXIDE 33(H) 20 - 32 mmol/L [facility] CALCIUM 9.6 8.6 - 10.3 mg/dL [facility] PROTEIN, TOTAL 7.4 6.1 - 8.1 g/dL [facility] ALBUMIN 4.7 3.6 - 5.1 g/dL [facility] GLOBULIN 2.7 1.9 - 3.7 g/dL (calc) [facility] ALBUMIN/GLOBULI N RATIO 1.7 1.0 - 2.5 (calc) [facility] BILIRUBIN, TOTAL 0.4 0.2 - 1.2 mg/dL [facility] ALKALINE PHOSPHATASE 99 35 - 144 U/L [facility] AST 15 10 - 35 U/L [facility] ALT 20 9 - 46 U/L [facility] Blood Blood / Unknown 07/20/2024 9 :18 AM EDT 07/20/2024 9:18 AM EDT Narrative [facility] - 07/21/2024 6:18 AM EDT FASTING:NO us Dmitri Arzola MD LAB - BLOOD DRAW Final Result [facility] [address] [address], [place] [facility] [address] [place] [address] * LAB SCANNED DOCUMENT (07/15/2024 3:00 AM EDT) Only the most recent of2 resultswithin the time period is included. 07/15/2024 3:00 AM EDT us Dmitri Arzola MD SCAN LAB Final Result * MICROALBUMIN/CREATININE RATIO, URINE, RANDOM (05/12/2024 8:40 AM EST) CREATININE, RANDOM URINE 125 20 - 320 mg/dL [facility] MICROALBUMIN 1.3 mg/dL [facility] [employer] [facility] Comment: Reference Range Not established MICROALBUMIN/CREA TININE RATIO, RANDOM URINE 10 <30 mg/g creat [facility] Comment: The ADA defines abnormalities in albumin [...] AM EST 05/12/2024 8:40 AM EST Narrative [facility] - 05/14/2024 6:43 PM EST SPLIT 02/03/2024 FROM [id number] us Dmitri Arzola MD LAB - NO BLOOD DRAW Final Resul t [facility] [address] [address], [place] [facility] [address] [place] [address] * FECAL GLOBIN BY IMMUNOCHEMISTRY (FIT) (05/10/2024 7:00 PM EST) FECAL GLOBIN BY IMMUNOCHEMISTRY See Note [facility] Comment: ??FECAL GLOBIN BY IMMUNOCHEMISTRY ?Micro Number: ?[id number] ??Test Status: ? Final ??Specimen Source: ?? Insure (tm) fobt test card ??Specimen Quality: ??Adequate ??Fecal Globin: ?Not Detected Stool Stool specimen / Unknown 05/10/2024 7:00 PM EST 05/14/2024 7:37 AM EST Dmitri Arzola MD LAB - NO BLOOD DRAW Final Resul t Performing Organization Address [facility] de Phone Number [facility] [address] [place] [phone], [employer] [address] [place] [phone] * (ABNORMAL) HEMOGLOBIN GLYCOSYLATED A1C (02/03/2024 9:40 AM EDT) HEMOGLOBIN A1C 7.3(H) <5.7 % of total Hgb [facility] Comment: For someone without known diabetes, a [...] AM EDT 02/03/2024 9:41 AM EDT Narrative [facility] - 02/04/2024 5:34 AM EDT FASTING:NO COLLECTION KIT GIVEN TO PATIENT. PATIENT ADVISED TO RETURN. Dmitri Arzola MD LAB - BLOOD DRAW Final Result Performing Organization Address [facility] Co de Phone Number [facility] [address] [place] [phone], [employer] [address] [place] [phone] * (ABNORMAL) LIPID PANEL (04/11/2023 9:10 AM EST) Pathologist [facility] CHOLESTEROL, TOTAL 138 <200 mg/dL [facility] HDL CHOLESTEROL 39(L) > OR = 40 mg/dL [facility] TRIGLYCERIDES 164(H) <150 mg/dL [facility] LDL-CHOLESTEROL 75 99 mg/dL (calc) [facility] [employer] [facility] Comment: Reference range: <100 Desirable range <100 mg/dL for primary prevention; ?? <70 mg/dL for patients with CHD or diabetic patients with > or = 2 CHD risk factors. LDL-C is now calculated using the Jennifer calculation, which is a validated novel method providing better accuracy than the Friedewald equation in the estimation of LDL-C. Nick SS et al. RONALD. 2013;310(19): 9381-7603 (http://education.[employer]/faq/RAQ977) CHOL/HDLC RATIO 3.5 <5.0 (calc) [facility] NON-HDL CHOLESTEROL 99 <130 mg/dL (calc) [facility] Comment: For patients with diabetes plus 1 major ASCVD risk factor, treating to a non-HDL-C goal of <100 mg/dL (LDL-C of <70 mg/dL) is considered a therapeutic option. Blood Blood / Unknown 04/11/2023 9 :10 AM EST 04/11/2023 9:11 AM EST Narrative [facility] - 04/12/2023 7:44 AM EST FASTING:NO Dmitri Arzola MD LAB - BLOOD DRAW Final Result [facility] [address] [address], [facility] [employer] [facility] [address] [address] * HEPATITIS A,B,C PANEL (05/08/2019 9:55 AM EST) [facility] HEPATITIS B SURFACE ANTIBODY NEGATIVE NEGATIVE [facility] HEPATITIS B SURFACE ANTIGEN NEGATIVE NEGATIVE [facility] Comment: Over the counter supplements containing high doses of biotin may interfere with this assay. ??If interference is suspected, patients shoud be retested after refraining from biotin supplements for 72 hours. HEPATITIS C VIRUS DIAGNOSTIC NEGATIVE NEGATIVE [facility] HEPATITIS A ANTIBODY TOTAL NEGATIVE NEGATIVE [facility] Comment: Over the counter supplements containing high doses of biotin may interfere with this assay. ??If interference is suspected, patients shoud be retested after refraining from biotin supplements for 72 hours. HEPATITIS B CORE ANTIBODY NEGATIVE NEGATIVE [facility] Blood specimen (specimen) Blood / Unknown 05/08/2019 9:55 AM EST 05/08/2019 10:21 AM EST Narrative [facility] - 05/08/2019 1:59 PM EST [employer], [place] [address] Service Officer - Roslyn Live MD PT ID [id number] ORD# [id number] [facility] - BLOOD DRAW [place] [address], * HIV-1 & HIV-2 ANTIBODIES (05/08/2019 9:55 AM EST) HIV 1 AND 2 ANTIBODY SCREEN NONREACTIVE NONREACTIVE [facility] Comment: HIV testing performed at reference lab due to reagent backorder. Test performed at: [facility] [address] [place] [address] Juan Carlos Martinez MD- Service Officer Blood specimen (specimen) Blood / Unknown 05/08/2019 9:55 AM EST 05/08/2019 10:21 AM EST Narrative [facility] - 05/13/2019 2:51 PM EST [employer] [address] Service Officer - Roslyn Live MD PT ID [id number] ORD# [id number] Lena Ndissi [facility] - BLOOD DRAW Final Resu lt [facility] [address] [place] [address], from Last 3 Months or Most Recently Relevant to Health Maintenance Insurance [id number] Care Teams Combat Systems Operator Mine Warfare Relationship Specialty Start Date End Date Dmitri Arzola MD [address] [place] [address] PCP - General Internal Medicine 05/05/19
--- OUTSIDE RECORDS SUMMARY | 2024-09-11 08:59 | XMS_ITS | Encounter Summary ---
Author Organization [facility] Address [address] [place] [address] Care Team Providers Care Media Technician Name Role Phone Dmitri Arzola MD Primary Care Provider [phone] Encounter Details Date Type Department Care Team (Late st Contact Info) Description 07/21/2024 Results Follow-Up [facility] [address] [place] [phone] Dmitri Arzola MD [address] [facility] [place] [address] Social History Tobacco Use Types Packs/Day Years [...] . Pt has an appointment to see Paper Wood Cutter documented in this encounter Plan of Treatment Upcoming Encounters Date Type Department Care Team (Late st Contact Info) Description 10/16/2024 9:00 AM EDT Office Visit [address] [address] Ysabel Ash [address] [place] [address] documented as of this encounter Visit Diagnoses Not on filedocumented in this encounter Additional Health Concerns Assessment Noted Time PHQ-9 Depression Total Score: 0 07/02/19 10:31 AM PST documented as of this encounter Care Teams Media Technician Relationship Specialty Start Date End Date Dmitri Arzola MD [address] [place] [address] PCP - General Internal Medicine 05/05/19 documented as of this encounter
[2024-09-11 09:16] LABS: Creatinine Urine 60.59 mg/dL; Protein/Creatinine Ratio, Ur 0.63 (<0.2); Total Protein Urine Random 38 mg/dL (<12)
== END 2024-09-11 08:45 | disposition home or self-care (01) ==
LOC: HO.LNP 08:44
PROVIDERS: Visit Provider Internal Medicine Nephrology
DX: I12.9 Hypertensive chronic kidney disease with stage 1 through stage 4 chronic kidney disease, or unspecified chronic kidney disease (principal); N18.31 Chronic kidney disease, stage 3a
CPT/HCPCS: 82570; 84156

== ENCOUNTER 2024-09-16 13:43 | Outpatient (AMB) | payer MEDICAID, SELFPAY ==
--- NOTE | 2024-09-16 13:50 | HO.NEPHOV_ITS ---
Vital Signs 09/16/24 13:53 Height 5 ft 10 in Weight 184 lb 4 oz BMI 26.4 BP 150/84 H Blood Pressure Location Lt brachial Position Sitting Pulse 81 Pulse Source Pulse Oximeter Pulse Oximetry (%) 96 Oxygen Delivery Method Room Air Intake Visit Reasons: FU-Conf Tool And Die Maker Required: No Accompanied by: Significant Other Allergies lisinopril Allergy (Verified 09/16/24 13:53) Facial Swelling HPI Comments Details: 59-year-old male with history of diabetes, hypertension who recently was admitted and treated for Acute renal failure with acute metabolic acidosis requiring acute hemodialysis which seems to be related more to ATN . He has significant improvement in his urine output and his serum creatinine steadily improved and stabilized. Permacath was placed on 06/02/24 & his last inpatient HD session on 06/03/24. He presented to ER with facial swelling and lip swelling wh ich was thought to be angioedema from ACEI. At one of the last last office visit he had difficulty turning his neck as well as right sided neck swelling. He denied any SOB or hemoptysis. He was thought to have DVT in IJ which was confirmed by USS and his permcath was removed & was started on Elquis. He is seen in follow up today [facility] Medical History (Updated 07/22/24 @ 12:14 by Live Avina MD) Hypertension RAMONITA (acute kidney injury) Uncontrolled hypertension ESRD needing dialysis HLD (hyperlipidemia) Non-insulin dependent type 2 diabetes mellitus Asthma Social History Household Members: Family Housing: Apartment Do you presently have visiting nurse or other home services: No Alcohol intake: former Patient Tobacco Use Status: Current someday Tobacco user Tobacco use type: Cigarette Cigarette Packs Per Day: 1 Cigarettes Per Day: 9 e-Cigarette/Vaping Use: Never Used Second Hand Smoke Exposure: No service: No Current occupational status: employed Review of Systems Const All systems reviewed & are unremarkable except as noted in HPI and below Physical Exam Vital Signs: Last Vital Signs Pulse 81 09/16/24 13:53 BP 150/84 H 09/16/24 13:53 Pulse Ox 96 09/16/24 13:53 Oxygen Delivery Method Room Air 09/16/24 13:53 BMI result Body Mass Index 26.4 Const General: comfortable and no acute distress Orientation/consciousness: patient oriented x3 HEENT Head: Yes normocephalic Mouth: Normal oral and palatal mucosa present Eyes EOM: EOMs intact bilaterally Neck Neck: Yes supple Resp Auscultation: clear to auscultation bilaterally Cardio Jugular venous distension: no JVD Rate: regular rate GI Palpation (GI): Soft to palpation Auscultation: normal bowel sounds General: Yes no CVA tenderness Back/Spine/Pelvis Back: no CVA tenderness Skin General skin exam: no rashes or lesions noted Neuro General: patient oriented x3 and moves all extremities Extrem General: Yes no pedal edema Results Reviewed Nephrology Results: Hgb 13.5 g/dl (14.0-18.0) L 09/10/24 WBC 5.6 X10*3/uL (4.8-10.8) 09/10/24 Plt Count 282 X10*3/uL (160-400) 09/10/24 Sodium 141 mmol/L (135-145) 09/10/24 Potassium 3.7 mmol/L (3.3-5.1) 09/10/24 Chloride 106 mmol/L (96-108) 09/10/24 Carbon Dioxide 24 mmol/L (22-29) 09/10/24 BUN 27 mg/dL (9-16) H 09/10/24 Creatinine 2.41 mg/dL (0.5-1.4) H 09/10/24 Calcium 9.5 mg/dL (8.4-10.2) 06/18/24 Urine Creatinine 60.59 mg/dL 09/11/24 Protein/Creatinin Ratio 0.63 (<0.2) H 09/11/24 Assessment & Plan Assessment & Plan (1) Hypertension: Code(s): I10 - Essential (primary) hypertension Category: Medical Qualifiers: Hypertension type: primary hypertension Qualified Code(s): I10 - Essential (primary) hypertension (2) CKD stage 3a, GFR 45-59 ml/min: Code(s): N18.31 - Chronic kidney disease, stage 3a Category: Medical Plan RAMONITA due to ATN ( S/P renal biopsy)- recovered Likely has underlying diabetic kidney disease Urine output good; Has DVT of neck- On Elquis (Elquis could be D/David in 3 more months) Permcath taken out; No ACEI/NSAID's 24 hour urine for creatinine cl ordered Will be a candidate for SGLT2 i soon Labs/ F/U with me in 3 months Orders: Orders Blood Urea Nitrogen 2 Months I10 - Essential (primary) hypertension, N18.31 - Chronic kidney disease, stage 3a Electrolytes 2 Months I10 - Essential (primary) hypertension, N18.31 - Chronic kidney disease, stage 3a Creatinine Clearance Urine 24U 2 Months I10 - Essential (primary) hypertension, N18.31 - Chronic kidney disease, stage 3a Creatinine 2 Months I10 - Essential (primary) hypertension, N18.31 - Chronic kidney disease, stage 3a Coding Level of Care Code Est Pt Level 4 (73912) Diagnoses Primary hypertension I10 Hypertension type: primary hypertension CKD stage 3a, GFR 45-59 ml/min N18.31
[2024-09-16 13:53] VITALS: BP 150/84; PULSE 81; O2SAT 96; BMI 26.4
== END 2024-09-16 14:10 | disposition home or self-care (01) ==
LOC: HO.HKA 13:48
PROVIDERS: PCP Internal Medicine; Visit Provider Internal Medicine Nephrology
DX: I10 Essential (primary) hypertension (principal); N18.31 Chronic kidney disease, stage 3a
CPT/HCPCS: 99214

== ENCOUNTER → 2024-09-16 13:43 | Outpatient (BNVA) | payer MEDICAID, SELFPAY | PROVIDERS: PCP Internal Medicine; Visit Provider Internal Medicine Nephrology | DX: I12.9 Hypertensive chronic kidney disease with stage 1 through stage 4 chronic kidney disease, or unspecified chronic kidney disease (principal); E11.22 Type 2 diabetes mellitus with diabetic chronic kidney disease; N18.31 Chronic kidney disease, stage 3a; Z79.01 Long term (current) use of anticoagulants | CPT/HCPCS: 99212 ==

== ENCOUNTER 2024-09-18 08:40 | Outpatient (AMB) | payer MEDICAID, SELFPAY ==
--- OUTSIDE RECORDS SUMMARY | 2024-09-18 08:54 | XMS_ITS | Encounter Summary ---
Author Organization [facility] Address [address] [place] [address] Care Team Providers Care Production Administrator Name Role Phone Dmitri Arzola MD Primary Care Provider [phone] Encounter Details Date Type Department Care Team (Latest Contact Info) Description 07/21/2024 Results Follow-Up [facility] [address] [place] [address] Dmitri Arzola MD [address] [facility] [address] COMPREHENSIVE METABOLIC PANEL Social History Tobacco Use Types Packs/Day Years [...] . Pt has an appointment to see Plug Machine Operator documented in this encounter Plan of Treatment Upcoming Encounters Date Type Department Care Team (Late st Contact Info) Description 10/16/2024 9:00 AM EDT Office Visit [address] [address] Ysabel Ash [address] [place] [address] documented as of this encounter Visit Diagnoses Not on filedocumented in this encounter Additional Health Concerns Assessment Noted Time PHQ-9 Depression Total Score: 0 07/02/19 10:31 AM PST documented as of this encounter Care Teams Production Administrator Relationship Specialty Start Date End Date Dmitri Arzola MD [address] [place] [address] PCP - General Internal Medicine 05/05/19 documented as of this encounter
--- NOTE | 2024-09-18 09:28 | A.OFFVIS_ITS ---
Intake Visit Reasons: BPH w/LUTS Intake Note: New patient presents today for initial visit for BPH w/LUTS Urology Medication:None Blood Thinner:Apixaban Antibiotic Allergies:None PVR:0ml Allergies lisinopril Allergy (Verified 09/18/24 09:28) Facial Swelling HPI Comments Details: History of Present Illness The patient is a 59-year-old male presenting with a primary complaint of Benign Prostatic Hyperplasia (BPH) and obstructive urinary symptoms. He experiences nocturia and occasional incomplete bladder emptying but maintains generally good urinary flow. Increased fluid intake is noted as a contributing factor to nocturnal urination. Recent imaging via CT scan showed no kidney stones, and the patient reports no history of urinary tract infections. Family history is negative for prostate cancer, but his father had colon cancer for which the patient has had screenings. No recent PSA test was done. Symptoms are described as manageable and correlate with lifestyle adjustments. Urinary Symptoms Review - Increased frequency of urination at night (nocturia) due to increased water intake. - Overall good urinary flow. - Sense of incomplete bladder emptying. - No reported pain or pressure during urination. - No presence of kidney stones or urinary infections as per recent CT scan. Results - CT scan (Last Month): No kidney stones, no abnormalities in kidneys noted. Discussion Notes I discussed with the patient the physiology of BPH and its typical impact on urinary function. I emphasized that the prostate's growth as men age can obstruct the bladder outlet, leading to symptoms such as nocturia and changes in urinary flow. We reviewed recent diagnostic history including a CT scan that showed no renal abnormalities. I informed him of the need for a PSA test to evaluate prostate health further. I recommended a bladder ultrasound to assess the prostate's size and structure more clearly. The patient was informed of the need for a full bladder during the ultrasound, and we agreed to a follow-up to review results and adjust the plan as needed. The patient had no family history of prostate cancer, but we discussed ongoing monitoring given his father's history of colon cancer. Plan I will conduct a Prostate-Specific Antigen (PSA) test and a bladder ultrasound to further assess the prostate's health, especially considering the patient's symptoms of nocturia and increased water intake. I instructed the patient to attend the ultrasound with a full bladder to optimize the test's accuracy. After obtaining these results, a follow-up telephone consultation will be scheduled to determine any adjustments needed in management. Annual monitoring of prostate health through regular blood work is recommended given his condition and family history. Patient Instructions - Undergo the ordered PSA blood test. - Attend a bladder ultrasound with a full bladder; drink plenty of fluids before the appointment. - A follow-up phone call will be scheduled to discuss test results and next steps. - Continue regular screenings and informed monitoring given family history. - Please get in touch with any changes in symptoms or new concerns. Patient was informed and verbally consented to the use of an ambient scribe for clinic note documentation during this visit. [facility] Medical History Hypertension RAMONITA (acute kidney injury) Uncontrolled hypertension ESRD needing dialysis HLD (hyperlipidemia) Non-insulin dependent type 2 diabetes mellitus Asthma Social History Household Members: Family Housing: Apartment Do you presently have visiting nurse or other home services: No Alcohol intake: former Patient Tobacco Use Status: Current someday Tobacco user Tobacco use type: Cigarette Cigarette Packs Per Day: 1 Cigarettes Per Day: 9 e-Cigarette/Vaping Use: Never Used Second Hand Smoke Exposure: No service: No Current occupational status: employed Review of Systems Const All systems reviewed & are unremarkable except as noted in HPI and below Reports no additional complaints Eyes Reports no additional complaints ENT Reports no additional complaints Card Reports no additional complaints Resp Reports no additional complaints GI Reports no additional complaints Reports as per HPI Musc Reports no additional complaints Skin/Breast Reports system reviewed and no additional complaints, except as documented Neuro Reports no additional complaints Psych Reports no additional complaints Endo Reports no additional complaints Deuce/Lymph Reports no additional complaints Aller/Immun Reports no additional complaints Physical Exam Const General: healthy appearing, no acute distress and well developed Orientation/consciousness: patient oriented x3 HEENT Head: Yes normocephalic and Yes atraumatic Eyes Conjunctivae: conjunctivae normal Neck Neck: Yes normal visual inspection Chest Chest palpation & inspection: normal inspection of the chest Resp Effort & Inspection: normal respiratory effort GI Inspection: Yes normal to inspection Neuro General: patient oriented x3 Psych Appearance: grossly normal Affect: normal affect Results AMB Urinalysis, Automated UA Leukoctes 0 Pooja/uL Last Edit by Susanna Campbell on 09/18/24 15:56 UA Nitrite Negative Last Edit by Crystal Campbell on 09/18/24 15:56 UA Urobilinogen 3.5 mg/dL Last Edit by Crystal Campbell on 09/18/24 15:56 UA Protein 1.0 mg/dL Last Edit by Crystal Campbell on 09/18/24 15:56 UA pH 6.0 Last Edit by Crystal Campbell on 09/18/24 15:56 UA Blood 10 Serafin/uL Last Edit by Crystal Campbell on 09/18/24 15:56 UA Specific [place] 1.015 Last Edit by Crystal Campbell on 09/18/24 15:56 UA Ketone Negative Last Edit by Crystal Campbell on 09/18/24 15:56 UA Bilirubin 0 mg/dL Last Edit by Crystal Campbell on 09/18/24 15:56 UA Glucose 0 mg/dL Last Edit by Crystal Campbell on 09/18/24 15:56 Results Reviewed Results Reviewed: Date of Service: 08/07/24 Procedure(s): CT abdomen wo IV con Accession Number(s): [id number] cc: Live Avina MD; Dmitri Arzola MD~ Report Number: [id number]: Total DLP = 272.00 mGy-cm EXAMINATION: CT ABDOMEN WITHOUT CONTRAST CLINICAL INFORMATION: Right flank pain COMPARISON: None available. TECHNIQUE: Contiguous axial thin section helical images of the abdomen were performed without contrast. The data set was reformatted in the coronal and sagittal planes and reviewed on an independent workstation. This CT examination was performed using dose optimization techniques as appropriate, variously including the following: *Automated exposure control *Adjustment of mA and/or kV according to patient size (this includes techniques or standardized protocols for targeted exams where dose is matched to indication/reason for exam; i.e. extremities or head) *Use of iterative reconstruction technique DLP 272 mGy/cm. FINDINGS: LUNG BASES: Focal patchy opacity left lung base likely developing infiltrates or atelectasis. A lesser findings in right lung base. Heart size is normal. No pleural or pericardial effusion seen. LIVER, GALLBLADDER, BILIARY TREE: The liver is normal size, density and contour. No perihepatic ascites seen. No focal lesion or intrahepatic ductal dilatation seen. The gallbladder is contracted with no radiopaque calculi. PANCREAS: The pancreas is normal size and density. No peripancreatic fluid collection. SPLEEN: The spleen is normal size. No focal lesion seen ADRENAL GLANDS AND KIDNEYS: . Bilateral adrenal glands are symmetrical and normal. Both kidneys are normal size, shape and position. No radiopaque calculi or hydronephrosis seen. BOWEL LOOPS: Scattered stool and gas in colon without significant distention. Few scattered diverticuli seen in colon. The small bowel loops are normal caliber. No free air or free fluid seen. Small umbilical hernia containing fat is noted. Appendix is not visualized LYMPH NODES: Normal. VASCULAR: Unremarkable. BONES: No lytic or sclerotic process seen. CT/CT abdomen wo IV con IMPRESSION: Scattered colonic diverticulosis without diverticulitis. No radiopaque urolith, hydronephrosis or gallstone. No acute intra-abdominal process seen. Refrain patient little bit of dried yellow and Assessment & Plan Assessment & Plan (1) Benign prostatic hyperplasia with lower urinary tract symptoms: Code(s): N40.1 - Benign prostatic hyperplasia with lower urinary tract symptoms Category: Medical Qualifiers: Lower urinary tract symptom detail: unspecified Qualified Code(s): N40.1 - Benign prostatic hyperplasia with lower urinary tract symptoms (2) Screening PSA (prostate specific antigen): Code(s): Z12.5 - Encounter for screening for malignant neoplasm of prostate Category: Medical Plan Bladder ultrasound, check prostate size, PSA screening. Orders: Orders AMB Urinalysis Automated Today N40.1 - Benign prostatic hyperplasia with lower urinary tract symptoms, Z12.5 - Encounter for screening for malignant neoplasm of prostate US bladder Today N40.1 - Benign prostatic hyperplasia with lower urinary tract symptoms PSA,Total (Free>4and<10) Today N40.1 - Benign prostatic hyperplasia with lower urinary tract symptoms, Z12.5 - Encounter for screening for malignant neoplasm of prostate Patient Instructions: The patient had an opportunity to ask questions regarding treatment plan. The patient expressed understanding and agreement with the above treatment plan. The patient is aware they should contact our office by phone for worsening of their current condition or the appearance of new symptoms. Compliance is encouraged with any medications and followup testing that is ordered. It is a privilege to be allowed the opportunity to participate in the urologic care of your patient. If you have any questions or concerns regarding treatment for the above conditions please do not hesitate to contact me. The office telephone contact is [phone]. This note is constructed in part using voice recognition software. While every effort has been made to ensure accuracy hoist worker errors may have been included. Yours sincerely, Gem Rojas MD Scribe Plan - Not visible on output: Patient was informed and verbally consented to the use of an ambient scribe for clinic note documentation during this visit. Coding Diagnoses Benign prostatic hyperplasia with lower urinary tract symptoms, symptom details unspecified N40.1 Lower urinary tract symptom detail: unspecified Screening PSA (prostate specific antigen) Z12.5
== END 2024-09-18 10:18 | disposition home or self-care (01) ==
PROVIDERS: PCP Internal Medicine; Visit Provider Urology
DX: Z12.5 Encounter for screening for malignant neoplasm of prostate (principal); N40.1 Benign prostatic hyperplasia with lower urinary tract symptoms

== ENCOUNTER → 2024-09-18 08:40 | Outpatient (BNVA) | payer MEDICAID, SELFPAY | PROVIDERS: PCP Internal Medicine; Visit Provider Urology | DX: N40.1 Benign prostatic hyperplasia with lower urinary tract symptoms (principal); R35.1 Nocturia | CPT/HCPCS: 81003; 99202 ==

== ENCOUNTER 2024-10-20 15:30 | Outpatient (REF) | payer MEDICAID, SELFPAY ==
--- NOTE | ~2024-10-20 | US_ITS ---
CLINICAL HISTORY: N40.1 - Benign prostatic hyperplasia with lower urinary tract symptoms --- Additional Notes or Special Instructions: Please measure prostate US Urinary Bladder Comparison: None Findings: The urinary bladder is unremarkable. Prevoid volume: 295 mL. Postvoid volume: 9.1 mL The left ureteral jet was visualized multiple times. A right ureteral jet was not appreciated. Prostate volume estimated at 14 mL. IMPRESSION: No significant postvoid residual. This document has been electronically signed by: Carla Ford MD on 10/21/2024 10:40:10
== END 2024-10-20 15:31 | disposition home or self-care (01) ==
LOC: HO.US 15:30
PROVIDERS: PCP Internal Medicine; Visit Provider Urology
DX: N40.1 Benign prostatic hyperplasia with lower urinary tract symptoms (principal)
CPT/HCPCS: 76857

== ENCOUNTER → 2024-10-20 15:33 | Outpatient (BNV) | payer MEDICAID, SELFPAY | PROVIDERS: PCP Internal Medicine; Visit Provider Radiology Diagnostic Radiology | DX: N40.1 Benign prostatic hyperplasia with lower urinary tract symptoms (principal) | CPT/HCPCS: 76857 ==

== ENCOUNTER 2024-10-26 16:19 | Outpatient (AMB) | payer MEDICAID, SELFPAY ==
--- NOTE | 2024-10-26 16:19 | MHC.OFFVIS ---
Intake Visit Reasons: 6w/US/PSA Intake Note: Patient presents today via telehealth for 6w follow up/US/PSA Bladder US 10/20 Urology Medication:None Blood Thinner:Apixaban Antibiotic Allergies:None Allergies lisinopril Allergy (Verified 12/16/24 14:52) Facial Swelling HPI Comments Details: 10/26/24--FU bladder US-completed 10/20/24--Prostate volume estimated at 14 mL. LV--09/18/24--The patient is a 59-year-old male presenting for evaluation of Benign Prostatic Hyperplasia (BPH) and obstructive urinary symptoms. He experiences nocturia and occasional incomplete bladder emptying but maintains generally good urinary flow. Increased fluid intake in the evening is noted as a contributing factor to nocturnal urination. Recent imaging via CT scan showed no kidney stones, and the patient reports no history of urinary tract infections. Family history is negative for prostate cancer, but his father had colon cancer for which the patient has had screenings. No recent PSA test was done. Symptoms are described as manageable and correlate with lifestyle adjustments. Urinary Symptoms Review - Increased frequency of urination at night, increased fluid intake in the evening may be contributory. - Overall good urinary flow. - Sense of incomplete bladder emptying. - No reported pain or pressure during urination. - No presence of kidney stones per recent CT scan. Results - CT scan (08/07/24): No kidney stones, no abnormalities in kidneys noted. [facility] Medical History Hypertension RAMONITA (acute kidney injury) Uncontrolled hypertension ESRD needing dialysis HLD (hyperlipidemia) Non-insulin dependent type 2 diabetes mellitus Asthma Social History Household Members: Family Housing: Apartment Do you presently have visiting nurse or other home services: No Alcohol intake: former Patient Tobacco Use Status: Current someday Tobacco user Tobacco use type: Cigarette Cigarette Packs Per Day: 1 Cigarettes Per Day: 9 e-Cigarette/Vaping Use: Never Used Second Hand Smoke Exposure: No service: No Current occupational status: employed Review of Systems Const All systems reviewed & are unremarkable except as noted in HPI and below Reports no additional complaints Eyes Reports no additional complaints ENT Reports no additional complaints Card Reports no additional complaints Resp Reports no additional complaints GI Reports no additional complaints Reports as per HPI Musc Reports no additional complaints Skin/Breast Reports system reviewed and no additional complaints, except as documented Neuro Reports no additional complaints Psych Reports no additional complaints Endo Reports no additional complaints Deuce/Lymph Reports no additional complaints Aller/Immun Reports no additional complaints Telehealth Telehealth Telehealth Platform: [employer] Location of provider rendering services: practice address Location of patient: address on file Patient Identification confirmed using: Name, : Yes Telehealth method: video Patient verbally consented to treatment: Yes Patient verbally consented to billing insurance company: Yes Patient informed of any privacy concerns related to visit: Yes Results Reviewed Results Reviewed: Date of Service: 10/20/24 CLINICAL HISTORY: N40.1 - Benign prostatic hyperplasia with lower urinary tract symptoms --- Additional Notes or Special Instructions: Please measure prostate US Urinary Bladder Comparison: None Findings: The urinary bladder is unremarkable. Prevoid volume: 295 mL. Postvoid volume: 9.1 mL The left ureteral jet was visualized multiple times. A right ureteral jet was not appreciated. Prostate volume estimated at 14 mL. IMPRESSION: No significant postvoid residual. Date of Service: 08/07/24 EXAMINATION: CT ABDOMEN WITHOUT CONTRAST CLINICAL INFORMATION: Right flank pain COMPARISON: None available. TECHNIQUE: Contiguous axial thin section helical images of the abdomen were performed without contrast. The data set was reformatted in the coronal and sagittal planes and reviewed on an independent workstation. This CT examination was performed using dose optimization techniques as appropriate, variously including the following: *Automated exposure control *Adjustment of mA and/or kV according to patient size (this includes techniques or standardized protocols for targeted exams where dose is matched to indication/reason for exam; i.e. extremities or head) *Use of iterative reconstruction technique DLP 272 mGy/cm. FINDINGS: LUNG BASES: Focal patchy opacity left lung base likely developing infiltrates or atelectasis. A lesser findings in right lung base. Heart size is normal. No pleural or pericardial effusion seen. LIVER, GALLBLADDER, BILIARY TREE: The liver is normal size, density and contour. No perihepatic ascites seen. No focal lesion or intrahepatic ductal dilatation seen. The gallbladder is contracted with no radiopaque calculi. PANCREAS: The pancreas is normal size and density. No peripancreatic fluid collection. SPLEEN: The spleen is normal size. No focal lesion seen ADRENAL GLANDS AND KIDNEYS: . Bilateral adrenal glands are symmetrical and normal. Both kidneys are normal size, shape and position. No radiopaque calculi or hydronephrosis seen. BOWEL LOOPS: Scattered stool and gas in colon without significant distention. Few scattered diverticuli seen in colon. The small bowel loops are normal caliber. No free air or free fluid seen. Small umbilical hernia containing fat is noted. Appendix is not visualized LYMPH NODES: Normal. VASCULAR: Unremarkable. BONES: No lytic or sclerotic process seen. CT/CT abdomen wo IV con IMPRESSION: Scattered colonic diverticulosis without diverticulitis. No radiopaque urolith, hydronephrosis or gallstone. No acute intra-abdominal process seen. Refrain patient little bit of dried yellow and Assessment & Plan Assessment & Plan (1) Benign prostatic hyperplasia with lower urinary tract symptoms: Code(s): N40.1 - Benign prostatic hyperplasia with lower urinary tract symptoms Category: Medical Qualifiers: Lower urinary tract symptom detail: unspecified Qualified Code(s): N40.1 - Benign prostatic hyperplasia with lower urinary tract symptoms (2) Nocturia more than twice per night: Code(s): R35.1 - Nocturia Category: Medical Plan PSA pending Patient Instructions: The patient had an opportunity to ask questions regarding treatment plan. The patient expressed understanding and agreement with the above treatment plan. The patient is aware they should contact our office by phone for worsening of their current condition or the appearance of new symptoms. Compliance is encouraged with any medications and followup testing that is ordered. It is a privilege to be allowed the opportunity to participate in the urologic care of your patient. If you have any questions or concerns regarding treatment for the above conditions please do not hesitate to contact me. The office telephone contact is [phone]. This note is constructed in part using voice recognition software. While every effort has been made to ensure accuracy elastic attacher chainstitch errors may have been included. Yours sincerely, Gem Rojas MD Coding Level of Care Code Tele Est Pt Level 3 (00706) Diagnoses Benign prostatic hyperplasia with lower urinary tract symptoms, symptom details unspecified N40.1 Lower urinary tract symptom detail: unspecified Nocturia more than twice per night R35.1
--- OUTSIDE RECORDS SUMMARY | 2024-10-26 16:21 | XMS_ITS | Clinical Summary ---
Author Organization [facility] Address [address] [place] [address] Care Team Providers Care [facility]om[facility] Nurse Practitioner Name Role Phone Dmitri Arzola MD Primary [...] dsdvIndications:M oderate persistent asthma with acute exacerbation ([facility]) INHALE 1 PUFF BY MOUTH EVERY DAY 60 Each 3 022 Active aspirin 81 mg chewable tablet Take 81 mg by mouth once daily 023 Active blood-glucose meter monitoring kitIndications:Ty pe 2 diabetes mellitus without complication, without long-term current use of insulin ([facility]) Pt is Diabetic . E11.9 1 Each 024 Active alcohol swabsIndications: Type 2 diabetes mellitus without complication, without long-term current use of insulin ([facility]) Pt is Diabetic . E11.9 once a day 100 Each 1 025 Active blood sugar diagnostic (FREESTYLE TEST) stripsIndications :Type 2 diabetes mellitus without complication, without long-term current use of insulin ([facility]) USE TO TEST ONCE A DAY 100 Each 11 025 Active lancets (FREESTYLE LANCETS) 28 gaugeIndications: Type 2 diabetes mellitus without complication, without long-term current use of insulin ([facility]) Pt is Diabetic . E11.9 check once a day 100 Each 1 025 Active amLODIPine (NORVASC) 10 mg tablet [...] complication, without long-term current use of insulin ([facility]) TAKE 1 TABLET BY MOUTH TWICE A DAY WITH FOOD 180 Tablet 025 Active atorvastatin (LIPITOR) 80 mg tabletIndications :Cerebrovascular accident (CVA) due to occlusion of left anterior cerebral artery ([facility]),Mixed hyperlipidemia TAKE 1 TABLET BY MOUTH EVERY DAY 90 Tablet 1 025 Active ELIQUIS 5 mg tabIndications:Ar m DVT (deep venous thromboembolism), acute, right ([facility]) TAKE 1 TABLET BY MOUTH TWICE A DAY 60 Tablet 1 025 Active omeprazole (PRILOSEC) [address] capsuleIndication s:Gastroesophagea l reflux disease without esophagitis TAKE 1 CAPSULE BY MOUTH EVERY DAY IN THE MORNING BEFORE BREAKFAST 90 Capsule 2 025 Active atenoloL (TENORMIN) 50 mg tabletIndications :Primary hypertension TAKE 1 TABLET BY MOUTH EVERY DAY 90 Tablet 025 Active omeprazole (PRILOSEC) [address] capsuleIndication s:Gastroesophagea l reflux disease without esophagitis TAKE 1 CAPSULE BY MOUTH EVERY DAY IN THE MORNING BEFORE BREAKFAST 90 Capsule 2 024 2024 Discontinued atenoloL (TENORMIN) 50 mg tabletIndications :Primary hypertension Take 1 Tablet by mouth once daily 90 Tablet 025 2024 Discontinued Active Problems Problem Noted Date Diagnosed Date Arm DVT (deep venous thrombo embolism), acute, right ([facility]) 06/16/2024 Overview (06/16/2024): [facility] 06/09/2024 Admitted for Right sided neck pain and swelling . Sent to [place] by Commercial Agent for concern of DVT Right Internal Jugular vein . Right IJ Perm Cath removed. Venous Duplex showed positive for DVT Right IJ Vein . Started on Eliquis 10 mg po bid for 7 days then 5 mg po bid Food insecurity 04/16/2024 Financial difficulties 04/16/2024 Cerebrovascular accident (CV A) due to occlusion of left anterior cerebral artery ([facility]) 09/26/2022 Overview (09/26/2022): Admitted [facility]- Admitted 09/21/22 and Woke up [...] melly, without long-term current use of insulin ([facility]) 01/04/2015 Lump 10/28/2014 Overview (10/28/2014): R foot [facility] 09/2014: negative Mild intermittent asthma ([facility]) 09/28/2014 Overview (09/28/2014): Since childhood Gastroesophageal reflux disease without esophagi tis 09/28/2014 Overview (12/31/2014): [facility] 2014 EGD:chronic gastritis: H pylori Colonoscopy: normal, f/u in 5 yrs Right knee pain 09/28/2014 Overview (09/28/2014): Had surgery (per pt removed liquid) in 2005 Resolved Problems Problem Noted Date Diagnosed Date Resolved Date Numbness of right lower extremity 06/10/2015 07/11/2023 Immunizations Immunization Administration Dates Next Due Flu, Cell Culture based, Pre servative Free, 6m+, Flucelvax 12/21/2022 Flu, Preservative Free 06/15/2021,04/21/2018, Hep B,adult,adjuvanted (HEPLISAV) 04/11/2023,05/2022 INFLUENZA, SEASONAL, INJECTABLE 02/27/2016 PFIZER COVID VACCINE, PURPLE CAP, 12+ 06/16/2021 ,06/16/2021 PNEUMOCOCCAL CONJUGATE PCV 20 (Prevnar) 12/22/19 23,09/28/2022 PNEUMOCOCCAL POLYSACCHARIDE PPV23 (Pneumovax 23) 10/04/2016 Pfizer COVID-19 (Comirnaty), Mrna, Lnp-s, Pf, Maximiliano-sucrose, 30 Mcg/0.3 Ml, 12yr+ 04/11/2023 Vidit COVID-19 Vac cine Bivalent, (CORCORAN PFIZER-BIONTECH COVID-19 [...] alcohol) Socially Social Connections Answer Date Recorded How often do you feel lonely or isolated from th ose around you? 1 04/16/2024 Financial Resource Strain Answer Date R ecorded Hard to pay for: Food 2 04/16/2024 Stress Answer Date Recorded Do you feel these kinds of stress these days? 1 04/16/2024 Physical Activity Answer Date Recorded Physical Activity 0 12/21/2018 Food Insecurity Answer Date Recorded Hard to pay for: Food 2 04/16/2024 Transportation Needs Answer Date Record ed Hard to pay for: Transportation 1 04/16/2024 Housing Stability Answer Date Recorded Hard to pay for: Rent/Mortgage payment 1 04/16/2024 Safety and Environment Answer Date Buddy rded Safety 0 12/21/2018 Utilities Answer Date Recorded Hard to pay for: Utilities 2 04/16 Employment Answer Date Recorded Stress 0 01/14/2024 [...] 100 07/20/2024 8:55 AM EDT Temperature 36.5 C (97.7 F) 07/20/2024 8:55 AM EDT Respiratory Rate 16 07/20/2024 8:55 AM EDT Oxygen Saturation 97% 07/20/2024 8:55 AM EDT Inhaled Oxygen Concentration - - Weight 81.6 kg (180 lb) 07/20/2024 8:55 AM EDT Height 175.3 cm (5' 9 ) 07/20/2024 8:55 AM EDT Body Mass Index 26.58 07/20/2024 8:55 AM EDT Plan of Treatment Upcoming Encounters Date Type Department Care Team (Late st Contact Info) Description 11/04/2024 11:00 AM EDT Office Visit [facility] [address] [place] [id number] Cintia Zambrano, [employer]PA[employer] [address] [place] [address] Health Maintenance Due Date Last Done Comments Dental Examination [address] Colonography 2010 Fecal DNA 2010 Flexible Sigmoidoscopy 2010 Colonoscopy 12/01/2019 11/30/2014 (Amelia ashton by Outside Provider) Annual Wellness (Adult): Ind icated (All Coverage) 04/11/2024 04/11/2023, 06/15/2021, 05/06/2019, Additional history exists Lipid Screening 04/11/2024 04/11/2023, 05/30, 05/08/2019, Additional history exists Hemoglobin A1c 05/05/2024 02/03/2024, 03/29, 06/15/2021, Additional history exists Colorectal Cancer Screening 05/11/2024 Diabetes Foot Exam 07/10/2024 07/11/2023 Tobacco Cessation Counseling (#1) 02/02/2025 023, 05/06/2019 FIT/gFOBT 05/10/2025 05/10/2024, 10/2021, 07/03/2021, Additional history exists Urine Albumin Creatinine Rat io Screening 05/12/2025 05/12/2024 Anxiety Screening 07/01/2025 07/01/2024 Serum Creatinine 07/20/2025 07/20/2024, , 06/15/2021, Additional history exists Imm-DTaP/Tdap/Td (2 - Td or Tdap) 05/06/2029 020 HIV Screening Completed 05/08/2019 Hepatitis C Screening Completed 05/08/2019 Imm-Pneumococcal 50+ Completed 12/21/2022, 09/28/2022, 10/04/2016 Imm-Hepatitis B Completed 04/11/2023, 09/28/2022 [id number] Completed 01/08/2024, 03/29, 09/28/2022, Additional history exists Imm-Influenza Completed 01/08/2024, 11/28, 06/15/2021, Additional history exists Alcohol and Drug Screen Completed 07/02/19 25, 07/11/2023, 09/28/2022, Additional history exists Depression Annual Screen Completed 025, 07/11/2023, 09/28/2014 Imm-Zoster, Recombinant Completed 07/01/2024, 02/02 Procedures Procedure Name Priority Date/Time Associated Diagnosis Comments IMAGING SCANNED DOCUMENT 10/20/2024 3:00 AM EDT IMAGING SCANNED DOCUMENT 10/20/2024 3:00 AM EDT REFERRAL SCANNED DOCUMENT 09/16/2024 3:00 AM EDT LAB SCANNED DOCUMENT 09/10/2024 3:00 AM EDT IMAGING SCANNED DOCUMENT 08/07/2024 3:00 AM EDT COMPREHENSIVE METABOLIC PANEL Routine 07/20/2024 9:18 AM EDT Primary hypertension Right upper quadrant pain MICROALBUMIN/CREATININE RATIO, URINE, RANDOM Routine 05/12/2024 8:40 AM EST Type 2 diabetes mellitus without complication, without long-term current use of insulin ([facility]) FECAL GLOBIN BY IMMUNOCHEMISTRY (FIT) Routine 05/10/2024 7:00 PM EST Screen for colon cancer HEMOGLOBIN GLYCOSYLATED A1C Routine 02/03/2024 9:40 AM EDT Type 2 diabetes mellitus without complication, without long-term current use of insulin ([facility]) LIPID PANEL Routine 04/11/2023 9:10 AM EST Routine general medical examination at a health care facility Primary hypertension Mixed hyperlipidemia Cerebrovascular accident (CVA) due to occlusion of left anterior cerebral artery ([facility]) ANTIBODY HIV-1&HIV-2 SINGLE RESULT Routine 05/08/2019 9:55 AM EST Encounter for general adult medical examination w/o abnormal findings HEPATITIS A,B,C PANEL Routine 05/08/2019 9:55 AM EST Encounter for general adult medical examination w/o abnormal findings from Last 3 Months or Most Recently Relevant to Health Maintenance Results * IMAGING SCANNED DOCUMENT (10/20/2024 3:00 AM EDT) Only the most recent of3 resultswithin the time period is included. 10/20/2024 3:00 AM EDT us Dmitri Arzola MD SCAN IMAGING Final Result * REFERRAL SCANNED DOCUMENT (09/16/2024 3:00 AM EDT) 09/16/2024 3:00 AM EDT us Dmitri Arzola MD SCAN REFERRAL Final Result * LAB SCANNED DOCUMENT (09/10/2024 3:00 AM EDT) 09/10/2024 3:00 AM EDT us Dmitri Arzola MD SCAN LAB Final Result * (ABNORMAL) COMPREHENSIVE METABOLIC PANEL (07/20/2024 9:18 AM EDT) GLUCOSE 133 65 - 139 mg/dL [employer] [facility] Comment: Non-fasting reference interval UREA NITROGEN (BUN) 41(H) 7 - 25 mg/dL [employer] [facility] CREATININE (blood) 2.99(H) 0.70 - 1.30 mg/dL [employer] [facility] EGFR 23(L) > OR = 60 mL/min/1. 73m2 [employer] [facility] BUN/CREATININE RATIO 14 6 - 22 (calc) [employer] [facility] SODIUM 135 135 - 146 mmol/L [employer] [facility] POTASSIUM 3.2(L) 3.5 - 5.3 mmol/L [employer] [facility] CHLORIDE 92(L) 98 - 110 mmol/L [employer] [facility] CARBON DIOXIDE 33(H) 20 - 32 mmol/L [employer] [facility] CALCIUM 9.6 8.6 - 10.3 mg/dL [employer] [facility] PROTEIN, TOTAL 7.4 6.1 - 8.1 g/dL [employer] [facility] ALBUMIN 4.7 3.6 - 5.1 g/dL [employer] [facility] GLOBULIN 2.7 1.9 - 3.7 g/dL (calc) [employer] [facility] ALBUMIN/GLOBULI N RATIO 1.7 1.0 - 2.5 (calc) [employer] [facility] BILIRUBIN, TOTAL 0.4 0.2 - 1.2 mg/dL [employer] [facility] ALKALINE PHOSPHATASE 99 35 - 144 U/L [employer] [facility] AST 15 10 - 35 U/L [employer] [facility] ALT 20 9 - 46 U/L [employer] [facility] Blood Blood / Unknown 07/20/2024 9 :18 AM EDT 07/20/2024 9:18 AM EDT Narrative [facility] [facility] - 07/21/2024 6:18 AM EDT FASTING:NO Dmitri Arzola MD LAB - BLOOD DRAW Final Result [employer] [address] [address], [employer] [address] [address] * MICROALBUMIN/CREATININE RATIO, URINE, RANDOM (05/12/2024 8:40 AM EST) CREATININE, RANDOM URINE 125 20 - 320 mg/dL [employer] [facility] MICROALBUMIN 1.3 mg/dL [employer] [facility] [place] [facility] ([facility]CT[facility]: [place]) [facility] Comment: Reference Range Not established MICROALBUMIN/CREA TININE RATIO, RANDOM URINE 10 <30 mg/g creat [employer] [facility] Comment: The ADA defines abnormalities in albumin excretion as follows: Albuminuria Category Result (mg/g creatinine) Normal to Mildly increased <30 Moderately increased 30-299 Severely increased > OR = 300 The ADA recommends that at least two of three specimens collected within a 3-6 month period be abnormal before considering a patient to be within a diagnostic category. Urine Urine specimen / Unknown 05/12/2024 8:40 AM EST 05/12/2024 8:40 AM EST Narrative [facility] - 05/14/2024 6:43 PM EST SPLIT 02/03/2024 FROM [id number] us Dmitri Arzola MD LAB URINE AMBULATORY Final Resu lt Performing Organization Address [facility] Co de Phone Number [employer] [address] [place] [id number], [employer] [address] [address] * FECAL GLOBIN BY IMMUNOCHEMISTRY (FIT) (05/10/2024 7:00 PM EST) FECAL GLOBIN BY IMMUNOCHEMISTRY See Note [employer] Comment: FECAL GLOBIN BY IMMUNOCHEMISTRY Micro Number: [id number] Test Status: Final Specimen Source: Ins[employer] (tm) fobt test card Specimen Quality: Adequate Fecal Globin: Not Detected Stool Stool specimen / Unknown 05/10/2024 7:00 PM EST 05/14/2024 7:37 AM EST us Dmitri Arzola MD LAB BODY FLUIDS AND STOOLS AMBU LATORY Final Result Performing Organization Address [facility] de Phone Number [employer] [address] [place] [address], [employer] [address] [address] * (ABNORMAL) HEMOGLOBIN GLYCOSYLATED A1C (02/03/2024 9:40 AM EDT) HEMOGLOBIN A1C 7.3(H) <5.7 % of total Hgb [employer] Comment: For someone without known diabetes, a [...] A1c for diagnosis of diabetes for children. Blood Blood / Unknown 02/03/2024 9 :40 AM EDT 02/03/2024 9:41 AM EDT Narrative [facility] - 02/04/2024 5:34 AM EDT FASTING:NO COLLECTION KIT GIVEN TO PATIENT. PATIENT ADVISED TO RETURN. Dmitri Arzola MD LAB - BLOOD DRAW Final Result [employer] [address] [address], [employer] [address] [address] * (ABNORMAL) LIPID PANEL (04/11/2023 9:10 AM EST) CHOLESTEROL, TOTAL 138 <200 mg/dL [employer] HDL CHOLESTEROL 39(L) > OR = 40 mg/dL [employer] TRIGLYCERIDES 164(H) <150 mg/dL [employer] LDL-CHOLESTEROL 75 99 mg/dL (calc) [employer] Comment: Reference range: <100 Desirable range <100 mg/dL for primary prevention; <70 mg/dL for patients with CHD or diabetic patients with > or = 2 CHD risk factors. LDL-C is now calculated using the Nick-Juan calculation, which is a validated novel method providing better accuracy than the Friedewald equation in the estimation of LDL-C. Nick RODRIGUEZ et al. RONALD. 2013;310(19): 1507-7334 (http://education.NuvoMed/faq/SGY989) CHOL/HDLC RATIO 3.5 <5.0 (calc) [employer] NON-HDL CHOLESTEROL 99 <130 mg/dL (calc) [employer] Comment: For patients with diabetes plus 1 major ASCVD risk factor, treating to a non-HDL-C goal of <100 mg/dL (LDL-C of <70 mg/dL) is considered a therapeutic option. Blood Blood / Unknown 04/11/2023 9 :10 AM EST 04/11/2023 9:11 AM EST Narrative [facility] - 04/12/2023 7:44 AM EST FASTING:NO Dmitri Arzola MD LAB - BLOOD DRAW Final Result [facility] [address] [address], [facility] [address] [address] * HEPATITIS A,B,C PANEL (05/08/2019 9:55 AM EST) HEPATITIS B SURFACE ANTIBODY NEGATIVE NEGATIVE [facility] HEPATITIS B SURFACE ANTIGEN NEGATIVE NEGATIVE [facility] Comment: Over the counter supplements containing high doses of biotin may interfere with this assay. If interference is suspected, patients shoud be retested after refraining from biotin supplements for 72 hours. HEPATITIS C VIRUS DIAGNOSTIC NEGATIVE NEGATIVE [facility] HEPATITIS A ANTIBODY TOTAL NEGATIVE NEGATIVE [facility] Comment: Over the counter supplements containing high doses of biotin may interfere with this assay. If interference is suspected, patients shoud be retested after refraining from biotin supplements for 72 hours. HEPATITIS B CORE ANTIBODY NEGATIVE NEGATIVE [facility] Blood specimen (specimen) Blood / Unknown 05/08/2019 9:55 AM EST 05/08/2019 10:21 AM EST Narrative [facility] - 05/08/2019 1:59 PM EST [employer], a member of [address] [address] Beater Room Supervisor - Roslyn Live MD PT ID [id number] ORD# [id number] Lena VILLASEÑOR LAB - BLOOD DRAW Edited Res ult - Final Performing Organization Address City/[facility]/ZIP Co de Phone Number [address] [address], * HIV-1 & HIV-2 ANTIBODIES (05/08/2019 9:55 AM EST) HIV 1 AND 2 ANTIBODY SCREEN NONREACTIVE NONREACTIVE [facility] Comment: HIV testing performed at reference lab due to reagent backorder. Test performed at: [facility] [address] [place] [address] Juan Carlos Martinez MD- Beater Room Supervisor Blood specimen (specimen) Blood / Unknown 05/08/2019 9:55 AM EST 05/08/2019 10:21 AM EST Narrative [facility] - 05/13/2019 2:51 PM EST [employer], a member of [address] [address] Beater Room Supervisor - Roslyn Live MD PT ID [id number] ORD# [id number] L[facility] HUMPHRIESP LAB - BLOOD DRAW Final Resu lt [employer] [address], from Last 3 Months or Most Recently Relevant to Health Maintenance Insurance [facility] [employer] Member Subscriber Plan / Payer (Ef fective 2023-Present) Name:Jere Vazquez Relation to Subscriber:Self Name:Jere Vazquez Payer ID:[id number] Group ID:Not on file Type:Managed Medicaid Address: [facility] [place] [id number] [place] [id number] Care Teams Womens Health Nurse Practitioner Relationship Specialty Start Date End Date Dmitri Arzola MD [address] [place] [address] PCP - General Internal Medicine 05/05/19
== END 2024-10-26 16:50 | disposition home or self-care (01) ==
LOC: HO.HUSH 16:19
PROVIDERS: PCP Internal Medicine; Visit Provider Urology
DX: N40.1 Benign prostatic hyperplasia with lower urinary tract symptoms (principal); R35.1 Nocturia
CPT/HCPCS: 99213

== ENCOUNTER 2024-12-10 07:24 | Outpatient (REF) | payer MEDICAID, SELFPAY ==
--- OUTSIDE RECORDS SUMMARY | 2024-12-10 07:27 | XMS_ITS | Clinical Summary ---
Author Organization [facility] Address [address] [place] [address] Care Team Providers Care Lozenge Maker Name Role Phone Dmitri Arzola MD Primary [...] with acute exacerbation ([facility]) INHALE 1 PUFF BY MOUTH EVERY DAY 60 Each 3 022 Active aspirin 81 mg chewable tablet Take 81 mg by mouth once daily 023 Active blood-glucose meter monitoring kitIndications:Ty pe 2 diabetes mellitus without complication, without long-term current use of insulin ([facility] & [facility]) Pt is Diabetic . E11.9 1 Each 024 Active alcohol swabsIndications: Type 2 diabetes mellitus without complication, without long-term current use of insulin ([facility] & [facility]) Pt is Diabetic . E11.9 once a day 100 Each 1 025 Active blood sugar diagnostic (FREESTYLE TEST) stripsIndications :Type 2 diabetes mellitus without complication, without long-term current use of insulin ([facility] & [facility]) USE TO TEST ONCE A DAY 100 Each 11 025 Active lancets (FREESTYLE LANCETS) 28 gaugeIndications: Type 2 diabetes mellitus without complication, without long-term current use of insulin ([facility] & [facility]) Pt is Diabetic . E11.9 check once a day 100 Each 1 025 Active amLODIPine (NORVASC) 10 mg tablet Take 10 mg by mouth once daily 025 Active hydrALAZINE (APRESOLINE) 50 mg tablet Take 50 mg by mouth 3 (three) times daily 025 Active tamsulosin (FLOMAX) 0.4 mg 24 hr capsule Take 0.8 mg by mouth nightly at bedtime 025 Active atorvastatin (LIPITOR) 80 mg tabletIndications :Cerebrovascular accident (CVA) due to occlusion of left anterior cerebral artery ([facility]),Mixed hyperlipidemia TAKE 1 TABLET BY MOUTH EVERY DAY 90 Tablet 1 025 Active omeprazole (PRILOSEC) [address] capsuleIndication s:Gastroesophagea l reflux disease without esophagitis TAKE 1 CAPSULE BY MOUTH EVERY DAY IN THE MORNING BEFORE BREAKFAST 90 Capsule 2 025 Active atenoloL (TENORMIN) 50 mg tabletIndications :Primary hypertension TAKE 1 TABLET BY MOUTH EVERY DAY 90 Tablet 025 Active metFORMIN (GLUCOPHAGE) 500 mg tabletIndications :Controlled type 2 diabetes mellitus without complication, without long-term current use of insulin ([facility] & [facility]) TAKE 1 TABLET BY MOUTH TWICE A DAY WITH FOOD 180 Tablet 025 Active ELIQUIS 5 mg tabIndications:Ar m DVT (deep venous thromboembolism), acute, right ([facility]) TAKE 1 TABLET BY MOUTH TWICE A DAY 60 Tablet 1 025 Active ELIQUIS 5 mg tabIndications:Ar m DVT (deep venous thromboembolism), acute, right ([facility]) TAKE 1 TABLET BY MOUTH TWICE A DAY 60 Tablet 1 025 2024 Discontinued Active Problems Problem Noted Date Diagnosed Date Arm DVT (deep venous thrombo embolism), acute, right ([facility]) 06/16/2024 Overview (06/16/2024): [facility] 06/09/2024 Admitted for Right sided neck pain and swelling . Sent to [facility] by [employer] for concern of DVT Right Internal Jugular vein . Right IJ Perm Cath removed. Venous Duplex showed positive for DVT Right IJ Vein . Started on Eliquis 10 mg po bid for 7 days then 5 mg po bid Food insecurity 04/16/2024 Financial difficulties 04/16/2024 Cerebrovascular accident (CV A) due to occlusion of left anterior cerebral artery ([facility]) 09/26/2022 Overview (09/26/2022): Admitted [facility]- Admitted 09/21/22 and Woke up [...] negative in 2017 Controlled type 2 diabetes rudolph pickard, without long-term current use of insulin ([facility]) 01/04/2015 Lump 10/28/2014 Overview (10/28/2014): R foot [facility] 09/2014: negative Mild intermittent asthma ([facility]) 09/28/2014 Overview (09/28/2014): Since childhood Gastroesophageal reflux disease without esophagi tis 09/28/2014 Overview (12/31/2014): SMA 2014 EGD:chronic gastritis: H pylori Colonoscopy: normal, f/u in 5 yrs Right knee pain 09/28/2014 Overview (09/28/2014): Had surgery (per pt removed liquid) in 2005 Resolved Problems Problem Noted Date Diagnosed Date Resolved Date Numbness of right lower extremity 06/10/2015 07/11/2023 Encounters Date Type Department Care Team Description 11/05/2024 Results Follow-Up [address] [phone] Cintia Zambrano FNP 11/04/2024 11:00 AM EDT Office Visit [address] [address] Cintia Zambrano FNP from Last 3 Months Immunizations Immunization Administration Dates Next Due Flu, Cell Culture based, Pre servative Free, 6m+, Flucelvax 12/21/2022 Flu, Preservative Free 06/15/2021,04/21/2018, Hep B,adult,adjuvanted (HEPLISAV) 04/11/2023,05/2022 INFLUENZA, SEASONAL, INJECTABLE 02/27/2016 PFIZER COVID VACCINE, PURPLE CAP, 12+ 06/16/2021 ,06/16/2021 PNEUMOCOCCAL CONJUGATE PCV 20 (Prevnar 20) 12/21,09/28/2022 PNEUMOCOCCAL POLYSACCHARIDE PPV23 (Pneumovax 23) 10/04/2016 Pfizer COVID-19 (Comirnaty), Mrna, Lnp-s, Pf, Maximiliano-sucrose, 30 Mcg/0.3 Ml, 12yr+ 04/11/2023 Pfizer-BioNTmonEchelle COVID-19 Vac cine Bivalent, (CORCORAN PFIZER-BIONTECH COVID-19 [...] Sign Reading Time Taken Comments Blood Pressure 158/88 11/04/2024 10:38 AM EDT Pulse 74 11/04/2024 10:38 AM EDT Temperature 36.7 C (98 F) 11/04/2024 10:38 AM EDT Respiratory Rate 16 11/04/2024 10:38 AM EDT Oxygen Saturation 98% 11/04/2024 10:38 AM EDT Inhaled Oxygen Concentration - - Weight 83.9 kg (185 lb) 11/04/2024 10:38 AM EDT Height 175.3 cm (5' 9 ) 11/04/2024 10:38 AM EDT Body Mass Index 27.32 11/04/2024 10:38 AM EDT Plan of Treatment Health Maintenance Due Date Last Done Comments Dental Examination 1965 CT Colonography 2010 Fecal DNA 2010 Flexible Sigmoidoscopy 2010 Colonoscopy 12/01/2019 11/30/2014 (Amelia ashton by Outside Provider) Colorectal Cancer Screening 05/11/2024 Diabetes Foot Exam 07/10/2024 07/11/2023 Imm-Influenza (#1) 2024 01/08/2024, 0 12/21/2022, 06/15/2021, Additional history exists Tobacco Cessation Counseling (#1) 02/02/2025 023, 05/06/2019 Hemoglobin A1c 02/04/2025 11/04/2024, 1010/2023, 04/11/2023, Additional history exists FIT/gFOBT 05/10/2025 05/10/2024, 0 10/2021, 07/03/2021, Additional history exists Urine Albumin Creatinine Rat io Screening 05/12/2025 05/12/2024 Anxiety Screening 07/01/2025 07/01/2024 Annual Wellness (Adult): Ind icated (All Coverage) 11/04/2025 11/04/2024, 04/11/2023, 06/15/2021, Additional history exists Lipid Screening 11/04/2025 11/04/2024, 03/29, 06/15/2021, Additional history exists Serum Creatinine 11/04/2025 11/04/2024, , 04/11/2023, Additional history exists Retinopathy Screening 11/19/2025 11/19/2024 Imm-DTaP/Tdap/Td (2 - Td or Tdap) 05/06/2029 020 HIV Screening Completed 05/08/2019 Hepatitis C Screening Completed 05/08/2019 Imm-Pneumococcal 50+ Completed 12/21/2022, 09/28/2022, 10/04/2016 Imm-Hepatitis B Completed 04/11/2023, 09/28/2022 [id number] Completed 01/08/2024, 03/29, 09/28/2022, Additional history exists Alcohol and Drug Screen Completed 07/02/19 25, 07/11/2023, 09/28/2022, Additional history exists Depression Annual Screen Completed 025, 07/11/2023, 09/28/2014 Imm-Zoster, Recombinant Completed 07/01/2024, 02/02 Procedures Procedure Name Priority Date/Time Associated Diagnosis Comments REFERRAL TO OPHTHALMOLOGY Routine 11/19/2024 3:00 AM EDT Routine general medical examination at a health care facility LIPIDS W RFLX TO DIRECT LDL Routine 11/04/2024 11:16 AM EDT Routine general medical examination at a health care facility Mixed hyperlipidemia HGA1C W/EAG Routine 11/04/2024 11:16 AM EDT Routine general medical examination at a health care facility Controlled type 2 diabetes mellitus without complication, without long-term current use of insulin ([facility]) TSH W/RFLX FREE T4 Routine 11/04/2024 11 :16 AM EDT Routine general medical examination at a health care facility BLOOD COUNT COMPLETE AUTO&AUTO DIFRNTL WBC Routine 11/04/2024 11:16 AM EDT Routine general medical examination at a health care facility COMPREHENSIVE METABOLIC PANEL Routine 11/04/2024 11:16 AM EDT Routine general medical examination at a health care facility Controlled type 2 diabetes mellitus without complication, without long-term current use of insulin ([facility]) IMAGING SCANNED DOCUMENT 10/20/2024 3:00 AM EDT IMAGING SCANNED DOCUMENT 10/20/2024 3:00 AM EDT REFERRAL SCANNED DOCUMENT 09/16/2024 3:00 AM EDT LAB SCANNED DOCUMENT 09/10/2024 3:00 AM EDT MICROALBUMIN/CREATININ E RATIO, URINE, RANDOM Routine 05/12/2024 8:40 AM EST Type 2 diabetes mellitus without complication, without long-term current use of insulin ([facility]) FECAL GLOBIN BY IMMUNOCHEMISTRY (FIT) Routine 05/10/2024 7:00 PM EST Screen for colon cancer ANTIBODY HIV-1&HIV-2 SINGLE RESULT Routine 05/08/2019 9:55 AM EST Encounter for general adult medical examination w/o abnormal findings HEPATITIS A,B,C PANEL Routine 05/08/2019 9:55 AM EST Encounter for general adult medical examination w/o abnormal findings from Last 3 Months or Most Recently Relevant to Health Maintenance Results * REFERRAL TO OPTHALMOLOGY (11/19/2024 3:00 AM EDT) 11/19/2024 3:00 AM EDT Cintia Zambrano [facility] REFERRAL Cyndi minor Result * (ABNORMAL) HGA1C W/EAG Routine (11/04/2024 11:16 AM EDT) HEMOGLOBIN A1C 7.2(H) <5.7 % Blued Comment: For someone without known diabetes, a [...] A1c for diagnosis of diabetes for children. EAG (MG/DL) 160 mg/dL Blued EAG (MMOL/L) 8.9 mmol/L [employer] [facility] Blood Blood / Unknown 11/04/2024 1 1:16 AM EDT 11/04/2024 11:17 AM EDT Narrative [employer] [facility] - 11/05/2024 9:27 AM EDT FASTING:YES COLLECTION KIT GIVEN TO PATIENT. PATIENT ADVISED TO RETURN. Cintia Zambrano [facility] LAB - BLOOD DRAW Rajiv doug Result - Final Performing Organization Address [facility] Co de Phone Number [employer] [address] [address], [place] [address] [address] * TSH W/RFLX FREE T4 Routine (11/04/2024 11:16 AM EDT) TSH W/REFLEX TO FT4 1.28 0.40 - 4.50 mIU/L [employer] [facility] Blood Blood / Unknown 11/04/2024 1 1:16 AM EDT 11/04/2024 11:17 AM EDT Narrative [employer] [facility] - 11/05/2024 9:27 AM EDT FASTING:YES COLLECTION KIT GIVEN TO PATIENT. PATIENT ADVISED TO RETURN. Cintia Zambrano [facility] LAB - BLOOD DRAW Rajiv doug Result - Final Performing Organization Address [facility] de Phone Number [employer] [address] [address], [place] [address] [address] * (ABNORMAL) LIPIDS W RFLX TO DIRECT LDL Routine (11/04/2024 11:16 AM EDT) CHOLESTEROL, TOTAL 170 <200 mg/dL [employer] [facility] HDL CHOLESTEROL 36(L) > OR = 40 mg/dL [employer] [facility] TRIGLYCERIDES 331(H) <150 mg/dL [employer] [facility] Comment: If a non-fasting specimen was collected, consider repeat triglyceride testing on a fasting specimen if clinically indicated. Joel et al. J. of Clin. Lipidol. 2015;9:129-169. LDL-CHOLESTEROL 90 99 mg/dL (calc) Blued Comment: Reference range: <100 Desirable range <100 mg/dL for primary prevention; <70 mg/dL for patients with CHD or diabetic patients with > or = 2 CHD risk factors. LDL-C is now calculated using the Jennifer calculation, which is a validated novel method providing better accuracy than the Friedewald equation in the estimation of LDL-C. Nick SS et al. RONALD. 2013;310(19): 1830-9758 (http://education.Smartpay/faq/AGF821) CHOL/HDLC RATIO 4.7 <5.0 (calc) Blued NON-HDL CHOLESTEROL 134(H) <130 mg/dL (calc) Blued Comment: For patients with diabetes plus 1 major ASCVD risk factor, treating to a non-HDL-C goal of <100 mg/dL (LDL-C of <70 mg/dL) is considered a therapeutic option. Blood Blood / Unknown 11/04/2024 1 1:16 AM EDT 11/04/2024 11:17 AM EDT Narrative [employer] - 11/05/2024 9:27 AM EDT FASTING:YES COLLECTION KIT GIVEN TO PATIENT. PATIENT ADVISED TO RETURN. Cintia [facility] LAB - BLOOD DRAW Fin al Result [employer] [address] [place] [address], be[address] [address] * BLOOD COUNT COMPLETE AUTO&AUTO DIFRNTL WBC Routine (11/04/2024 11:16 AM EDT) WHITE BLOOD CELL COUNT 5.9 3.8 - 10.8 Thousand/ uL Blued RED BLOOD CELL COUNT 4.89 4.20 - 5.80 Million/u L Blued HEMOGLOBIN 13.6 13.2 - 17.1 g/dL Blued HEMATOCRIT 42.0 38.5 - 50.0 % Blued MCV 85.9 80.0 - 100.0 fL Blued MCH 27.8 27.0 - 33.0 pg Blued MCHC 32.4 32.0 - 36.0 g/dL Blued Comment: For adults, a slight decrease in the calculated MCHC value (in the range of 30 to 32 g/dL) is most likely not clinically significant; however, it should be interpreted with caution in correlation with other red cell parameters and the patient's clinical condition. RDW 13.7 11.0 - 15.0 % Blued PLATELET COUNT 287 140 - 400 Thousand/ uL Blued MPV 9.5 7.5 - 12.5 fL Blued ABSOLUTE NEUTROPHILS 2,407 1,500 - 7,800 cells/uL Blued ABSOLUTE LYMPHOCYTES 2,921 850 - 3,900 cells/uL Blued ABSOLUTE MONOCYTES 419 200 - 950 cells/uL be2 [facility] ABSOLUTE EOSINOPHILS 112 15 - 500 cells/uL Blued ABSOLUTE BASOPHILS 41 0 - 200 cells/uL Blued NEUTROPHILS PCT 40.8 % QUES T OZ [employer] [facility] LYMPHOCYTES 49.5 % [place] [employer] [facility] MONOCYTES 7.1 % [place] DIAG [employer] [facility] EOSINOPHILS 1.9 % [place] [employer] [facility] BASOPHILS 0.7 % [employer] DIAG [employer] [facility] Blood Blood / Unknown 11/04/2024 1 1:16 AM EDT 11/04/2024 11:17 AM EDT Narrative [employer] - 11/05/2024 9:27 AM EDT FASTING:YES COLLECTION KIT GIVEN TO PATIENT. PATIENT ADVISED TO RETURN. Cintia [facility] LAB - BLOOD DRAW Rajiv doug Result - Final [employer] [address] [address], Blued [address] [place] [phone] * (ABNORMAL) COMPREHENSIVE METABOLIC PANEL Routine (11/04/2024 11:16 AM EDT) GLUCOSE 115(H) 65 - 99 mg/dL be2 [facility] Comment: Fasting reference interval For someone without known diabetes, a glucose value between 100 and 125 mg/dL is consistent with prediabetes and should be confirmed with a follow-up test. UREA NITROGEN (BUN) 23 7 - 25 mg/dL [employer] [facility] CREATININE (blood) 2.37(H) 0.70 - 1.30 mg/dL [employer] [facility] EGFR 31(L) > OR = 60 mL/min/1. 73m2 [employer] [facility] BUN/CREATININE RATIO 10 6 - 22 (calc) [employer] [facility] SODIUM 136 135 - 146 mmol/L [employer] [facility] POTASSIUM 4.0 3.5 - 5.3 mmol/L [employer] [facility] CHLORIDE 104 98 - 110 mmol/L [employer] [facility] CARBON DIOXIDE 23 20 - 32 mmol/L [employer] [facility] CALCIUM 8.9 8.6 - 10.3 mg/dL [employer] [facility] PROTEIN, TOTAL 6.9 6.1 - 8.1 g/dL [employer] [facility] ALBUMIN 4.2 3.6 - 5.1 g/dL [employer] [facility] GLOBULIN 2.7 1.9 - 3.7 g/dL (calc) [employer] [facility] ALBUMIN/GLOBULI N RATIO 1.6 1.0 - 2.5 (calc) [employer] [facility] BILIRUBIN, TOTAL 0.3 0.2 - 1.2 mg/dL [employer] [facility] ALKALINE PHOSPHATASE 84 35 - 144 U/L [employer] [facility] AST 22 10 - 35 U/L [employer] [facility] ALT 40 9 - 46 U/L [employer] [facility] Blood Blood / Unknown 11/04/2024 1 1:16 AM EDT 11/04/2024 11:17 AM EDT Narrative [employer] [facility] - 11/05/2024 9:27 AM EDT FASTING:YES COLLECTION KIT GIVEN TO PATIENT. PATIENT ADVISED TO RETURN. Cintia [facility] LAB - BLOOD DRAW Fin al Result [employer] [address] [address], [employer] [address] [address] * IMAGING SCANNED DOCUMENT (10/20/2024 3:00 AM EDT) Only the most recent of2 resultswithin the time period is included. 10/20/2024 [...] RATIO, URINE, RANDOM (05/12/2024 8:40 AM EST) Pathologist [facility] CREATININE, RANDOM URINE 125 20 - 320 mg/dL [employer] [facility] MICROALBUMIN 1.3 mg/dL [employer] IAGNRF [employer] [facility] Comment: Reference Range Not established MICROALBUMIN/CREA TININE RATIO, RANDOM URINE 10 <30 mg/g creat [employer] [facility] Comment: The ADA defines abnormalities in [...] AM EST 05/12/2024 8:40 AM EST Narrative [employer] [facility] - 05/14/2024 6:43 PM EST SPLIT 02/03/2024 FROM [id number] us Dmitri Arzola MD LAB URINE AMBULATORY Final Resu lt [employer] [facility] [address] [address], [employer] [address] [address] * FECAL GLOBIN BY IMMUNOCHEMISTRY (FIT) (05/10/2024 7:00 PM EST) FECAL GLOBIN BY IMMUNOCHEMISTRY See Note Blued Comment: FECAL GLOBIN BY IMMUNOCHEMISTRY Micro Number: [id number] Test Status: Final Specimen Source: Insure (tm) fobt test card Specimen Quality: Adequate Fecal Globin: Not Detected Stool Stool specimen / Unknown 05/10/2024 7:00 PM EST 05/14/2024 7:37 AM EST Dmitri Arzola MD LAB B[facility] Final Result [employer] [address] [address], [employer] [address] [address] * HEPATITIS A,B,C PANEL (05/08/2019 9:55 AM EST) HEPATITIS B SURFACE ANTIBODY NEGATIVE NEGATIVE [facility] HEPATITIS B SURFACE ANTIGEN NEGATIVE NEGATIVE [facility] Comment: Over the counter supplements containing high doses of biotin may interfere with this assay. If interference is suspected, patients shoud be retested after refraining from biotin supplements for 72 hours. HEPATITIS C VIRUS DIAGNOSTIC NEGATIVE NEGATIVE [facility] HEPATITIS A ANTIBODY TOTAL NEGATIVE NEGATIVE [facility] Comment: Over the counter supplements containing high doses of biotin may interfere with this assay. If interference is suspected, patients shoud be retested after refraining from biotin supplements for 72 hours. HEPATITIS B CORE ANTIBODY NEGATIVE NEGATIVE [facility] Blood specimen (specimen) Blood / Unknown 05/08/2019 9:55 AM EST 05/08/2019 10:21 AM EST Narrative [facility] - 05/08/2019 1:59 PM EST [employer], [place] [address] Glove W[employer] - Roslyn Live MD PT ID [id number] ORD# [id number] Lena Sinclairnicolas [facility] LAB - BLOOD DRAW Edited Res ult - Final [address] [address], [place] [phone] * HIV-1 & HIV-2 ANTIBODIES (05/08/2019 9:55 AM EST) HIV 1 AND 2 ANTIBODY SCREEN NONREACTIVE NONREACTIVE [facility] Comment: HIV testing performed at reference lab due to reagent backorder. Test performed at: [facility] [address] [place] [id number] Juan Carlos Martinez MD- [employer] Blood specimen (specimen) Blood / Unknown 05/08/2019 9:55 AM EST 05/08/2019 10:21 AM EST Narrative [facility] - 05/13/2019 2:51 PM EST [employer], a member of [address] [address] [employer] - Roslyn Live MD PT ID [id number] ORD# [id number] Lena Nascimento [facility] LAB - BLOOD DRAW Final Resu lt Performing Organization Address [facility] Co de Phone Number [address] [address], from Last 3 Months or Most Recently Relevant to Health Maintenance Insurance [employer] Care Teams Lozenge Maker Relationship Specialty Start Date End Date Dmitri Arzola MD [address] [place] [address] PCP - General Internal Medicine 05/05/19
--- OUTSIDE RECORDS SUMMARY | 2024-12-10 07:27 | XMS_ITS | Clinical Summary ---
Author Organization [employer] Address [address] [facility] 7 [place] [address] Care Team Providers Care Printmaker Name Role Phone Unavailable Primary Care Provider Unavailabl e Encounters Date Type Department Care Team Description 11/17/2024 Population Health Risk Score [facility] (C3) Department [address] [facility] [address] [place] [phone] Provider, Population Health Generic from Last 3 Months Social History Tobacco Use Types Packs/Day Years Used Date Smoking Tobacco: Never Assessed Sex and Gender Information Value Date Recorded Sex Assigned at Not on file Legal Sex Male 9:18 AM EDT Gender Identity Not on file Sexual Orientation Not on file Plan of Treatment Health Maintenance Due Date Last Done Comments CT Colonography 1965 Colonoscopy 1965 Colorectal Cancer Screening 1965 Depression Screening 1965 FIT DNA/Cologuard 1965 FIT 1965 FOBT 1965 HIV Screening 1965 Lipid Panel 1965 Sigmoidoscopy 1965 Disability Screening 1965 Alcohol/Substance Use Screening 1977 Tobacco Screening 1977 Hepatitis C Screening 1983 Zoster Vaccines (2 of 2) 03/30/2024 02/03/2024 Influenza Vaccine (#1) 2024 , 12/21/2022, 06/15/2021, Additional history exists DTaP/Tdap/Td Vaccines (2 - Td or Tdap) 05/06/2029 05/06/2019 RSV Patients and Patients Aged 60 years or older (1 - 1-dose 75+ series) 02/07/2040 Pneumococcal Vaccine: 50+ Years Completed 12/21/2022, 09/28/2022, 10/04/2016 Hepatitis B Vaccines Completed 04/11/2023, 09/29/19 23 COVID-19 Vaccine Completed 01/08/2024, , 09/28/2022, Additional history exists HIB Vaccines Aged Out No longer eligi ble based on patient's age to complete this topic HPV Vaccines Aged Out No longer eligi ble based on patient's age to complete this topic Hepatitis A Vaccines Aged Out No long er eligible based on patient's age to complete this topic IPV Vaccines Aged Out No longer eligi ble based on patient's age to complete this topic Meningococcal B Vaccine Aged Out No l onger eligible based on patient's age to complete this topic Meningococcal Vaccine Aged Out No alvino loli eligible based on patient's age to complete this topic RSV under 20 months Aged Out No longe r eligible based on patient's age to complete this topic Rotavirus Vaccines Aged Out No longer eligible based on patient's age to complete this topic
[2024-12-10 09:08] LABS: Anion Gap 13 (12-20); Blood Urea Nitrogen 36 mg/dL (9-16); Carbon Dioxide 23 mmol/L (22-29); Chloride 106 mmol/L (96-108); Estimated Glomerular Filt Rate 23; Potassium 3.9 mmol/L (3.3-5.1); Sodium 138 mmol/L (135-145)
[2024-12-10 09:34] LABS: Creatinine, mg/dL 84.39
[2024-12-10 10:26] LABS: Creatinine (CrCl) 2.88 mg/dL (0.5-1.4); Total Volume 24 Hour Urine 2325 mL
== END 2024-12-10 07:25 | disposition home or self-care (01) ==
LOC: HO.LAB 07:24
PROVIDERS: Visit Provider Internal Medicine Nephrology
DX: I12.9 Hypertensive chronic kidney disease with stage 1 through stage 4 chronic kidney disease, or unspecified chronic kidney disease (principal); N18.31 Chronic kidney disease, stage 3a
CPT/HCPCS: 36415; 80051; 82565; 82575; 84520

== ENCOUNTER 2024-12-16 14:43 | Outpatient (AMB) | payer MEDICAID, SELFPAY ==
--- NOTE | 2024-12-16 13:59 | HO.NEPHOV ---
Vital Signs 12/16/24 14:52 Height 5 ft 10 in Weight 182 lb 8 oz BMI 26.2 BP 170/100 H Blood Pressure Location Rt brachial Position Sitting Pulse 75 Pulse Source Pulse Oximeter Pulse Oximetry (%) 96 Oxygen Delivery Method Room Air Intake Visit Reasons: 3 MO FU Hand Collator Required: No Accompanied by: Spouse Allergies lisinopril Allergy (Verified 12/16/24 14:52) Facial Swelling HPI Comments Details: 59-year-old male with history of diabetes, hypertension who recently was admitted and treated for Acute renal failure with acute metabolic acidosis requiring acute hemodialysis which seems to have been related to ATN. He had significant improvement in his urine output and his serum creatinine steadily improved and stabilized. Permacath was placed on 06/02/24 & his last inpatient HD session on 06/03/24. He presented to ER with facial swelling and lip swelling which was thought to be angioedema from ACEI. At one of the last last office visit he had difficulty turning his neck as well as right sided neck swelling. He denied any SOB or hemoptysis. He was thought to have DVT in IJ which was confirmed by USS and his permcath was removed & was started on Elquis. Creatinine increased from 2.41 in August to 2.88 on 12.10. He states he has been feeling unwell since recent trip to [place], has not been eating or drinking much. States has cold symptoms. Making good urine. No pain, other than ribs ache when he coughs. No shortness of breath. No LE edema. 24 hour urine creatinine clearance is 47.3. [facility] Medical History Hypertension RAMONITA (acute kidney injury) Uncontrolled hypertension ESRD needing dialysis HLD (hyperlipidemia) Non-insulin dependent type 2 diabetes mellitus Asthma Social History Household Members: Family Housing: Apartment Do you presently have visiting nurse or other home services: No Alcohol intake: former Patient Tobacco Use Status: Current someday Tobacco user Tobacco use type: Cigarette Cigarette Packs Per Day: 1 Cigarettes Per Day: 9 e-Cigarette/Vaping Use: Never Used Second Hand Smoke Exposure: No service: No Current occupational status: employed Review of Systems Const All systems reviewed & are unremarkable except as noted in HPI and below Physical Exam Vital Signs: Last Vital Signs Pulse 75 12/16/24 14:52 BP 170/100 H 12/16/24 14:52 Pulse Ox 96 12/16/24 14:52 Oxygen Delivery Method Room Air 12/16/24 14:52 BMI result Body Mass Index 26.2 Const General: comfortable and no acute distress Orientation/consciousness: patient oriented x3 Neck Neck: Yes supple Resp Auscultation: clear to auscultation bilaterally Cardio Jugular venous distension: no JVD Rate: regular rate GI Palpation (GI): Soft to palpation Auscultation: normal bowel sounds General: Yes no CVA tenderness Back/Spine/Pelvis Back: no CVA tenderness Skin General skin exam: no rashes or lesions noted Neuro General: patient oriented x3 and moves all extremities Extrem General: Yes no pedal edema Results Reviewed Nephrology Results: Hgb, (14.0-18.0) 13.5 g/dl L Δ 09/10/24 WBC, (4.8-10.8) 5.6 X10*3/uL 09/10/24 Plt Count, (160-400) 282 X10*3/uL 09/10/24 Sodium, (135-145) 138 mmol/L 12/10/24 Potassium, (3.3-5.1) 3.9 mmol/L 12/10/24 Chloride, (96-108) 106 mmol/L 12/10/24 Carbon Dioxide, (22-29) 23 mmol/L 12/10/24 BUN, (9-16) 36 mg/dL H 12/10/24 Creatinine, (0.5-1.4) 2.88 mg/dL H 12/10/24 Urine Creatinine 60.59 mg/dL 09/11/24 Protein/Creatinin Ratio, (<0.2) 0.63 H 09/11/24 Renal US 05/21/24 Assessment & Plan Assessment & Plan (1) Hypertension: Code(s): I10 - Essential (primary) hypertension Category: Medical Qualifiers: Hypertension type: primary hypertension Qualified Code(s): I10 - Essential (primary) hypertension (2) CKD stage 3a, GFR 45-59 ml/min: Code(s): N18.31 - Chronic kidney disease, stage 3a Category: Medical Plan Hx of RAMONITA due to ATN (S/P renal biopsy)- recovered, permcath is out. Likely has underlying diabetic kidney disease Urine output good. 24 hour urine for creatinine cl is 47.3 creatinine has some increase since last visit- pt states has been sick for a week or so after traveling to [place], has been dehydrated. Will re-check BMP in 2-3 weeks before his next appt. Will be a candidate for SGLT2i soon- will defer to Dr Avina during next visit Blood pressures elevated this visit- added hydralazine 25mg PO TID. Advised needs to reduce salt, which his states he eats a lot of now. Avoid NSAID. Hydrate well. Regular physical activity and maintain a healthy body weight. Labs/ F/U with Dr Avina in 3 weeks Orders: Orders Blood Urea Nitrogen 3 Weeks N17.9 - Acute kidney failure, unspecified Electrolytes 3 Weeks N17.9 - Acute kidney failure, unspecified Creatinine 3 Weeks N17.9 - Acute kidney failure, unspecified Medications: New hydralazine 25 mg PO TID 90 tabs 2RF 30 days Coding Level of Care Code Est Pt Level 3 (83784) Diagnoses Primary hypertension I10 Hypertension type: primary hypertension CKD stage 3a, GFR 45-59 ml/min N18.31
[2024-12-16 14:52] VITALS: BP 170/100; PULSE 75; O2SAT 96; BMI 26.2
--- OUTSIDE RECORDS SUMMARY | 2024-12-16 15:40 | XMS_ITS | Clinical Summary ---
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 Name Role Phone Unavailable Primary Care Provider Unavailabl e Encounters Date Type Department Care Team Description 11/17/2024 Population Health Risk Score [facility] Care [facility] (C[facility]) Department [address] [phone] Provider, Population Health Generic from Last 3 [...] Done Comments CT Colonography 1965 Colonoscopy 1965 Depression Screening 1965 FIT DNA/Cologuard 1965 FOBT 1965 Lipid Panel 1965 Sigmoidoscopy 1965 Disability Screening 1965 Alcohol/Substance Use Screening 1977 Tobacco Screening 1977 Hepatitis C Screening 1983 Influenza Vaccine (#1) 2024 , 12/21/2022, 06/15/2021, Additional history exists Colorectal Cancer Screening 05/10/2025 FIT 05/10/2025 05/10/2024 DTaP/Tdap/Td Vaccines (2 - Td or Tdap) 05/06/2029 05/06/2019 RSV Patients and Patients Aged 60 years or older (1 - 1-dose 75+ series) 02/07/2040 HIV Screening Completed 05/08/2019 Pneumococcal Vaccine: 50+ Years Completed 12/21/2022, 09/28/2022, 10/04/2016 Hepatitis B Vaccines Completed 04/11/2023, 09/29/19 23 COVID-19 Vaccine Completed 01/08/2024, , 09/28/2022, Additional history exists Zoster Vaccines Completed 07/01/2024, 02/03/2024 HIB Vaccines Aged Out No longer eligi [...]
--- OUTSIDE RECORDS SUMMARY | 2024-12-16 15:40 | XMS_ITS | Clinical Summary ---
Author Organization [facility] Address [address] [place] [address] Care Team Providers Care Hand Ii Cutter Name Role Phone Dmitri Arzola MD Primary [...] dsdvIndications:M oderate persistent asthma with acute exacerbation ([facility]) INHALE 1 PUFF BY MOUTH EVERY DAY 60 Each 3 022 Active aspirin 81 mg chewable tablet Take 81 mg by mouth once daily 023 Active blood-glucose meter monitoring kitIndications:Ty pe 2 diabetes mellitus without complication, without long-term current use of insulin ([facility]) Pt is Diabetic . E11.9 1 Each 024 Active alcohol swabsIndications: Type 2 diabetes mellitus without complication, without long-term current use of insulin ([facility]) Pt is Diabetic . E11.9 once a day 100 Each 1 025 Active blood sugar diagnostic (FREESTYLE TEST) stripsIndications :Type 2 diabetes mellitus without complication, without long-term current use of insulin ([facility]) USE TO TEST ONCE A DAY 100 Each 11 025 Active lancets (FREESTYLE LANCETS) 28 gaugeIndications: Type 2 diabetes mellitus without complication, without long-term current use of insulin ([facility]) Pt is Diabetic . E11.9 check [...] to occlusion of left anterior cerebral artery ([facility]),Mixed hyperlipidemia TAKE 1 TABLET BY MOUTH [...] complication, without long-term current use of insulin ([facility]) TAKE 1 TABLET BY MOUTH TWICE A DAY WITH FOOD 180 Tablet 025 Active ELIQUIS 5 mg tabIndications:Ar m DVT (deep venous thromboembolism), acute, right ([facility]) TAKE 1 TABLET BY MOUTH TWICE A DAY 60 Tablet 1 025 Active ELIQUIS 5 mg tabIndications:Ar m DVT (deep venous thromboembolism), acute, right ([facility]) TAKE 1 TABLET BY MOUTH TWICE A DAY 60 Tablet 1 025 2024 Discontinued Active Problems Problem Noted Date Diagnosed Date Arm DVT (deep venous thrombo embolism), acute, right ([facility]) 06/16/2024 Overview (06/16/2024): [facility] 06/09/2024 Admitted for Right sided neck pain and swelling . Sent to Er by Parts Clerk for concern of DVT Right Internal Jugular vein . Right IJ Perm Cath removed. Venous Duplex showed positive for DVT Right IJ Vein . Started on Eliquis 10 mg po bid for 7 days then 5 mg po bid Food insecurity 04/16/2024 Financial difficulties 04/16/2024 Cerebrovascular accident (CV A) due to occlusion of left anterior cerebral artery ([facility]) 09/26/2022 Overview (09/26/2022): Admitted [facility]- Admitted 09/21/22 and Woke up in [...] Left shoulder pain 08/11/2017 Overview (08/11/2017): Luz Marai Xray negative in 2017 Controlled type 2 diabetes rudolph pickard, without long-term current use of insulin ([facility]) 01/04/2015 Lump 10/28/2014 Overview (10/28/2014): R foot [facility] 09/2014: negative Mild intermittent asthma ([facility]) 09/28/2014 Overview (09/28/2014): Since childhood [...] Department Care Team Description 11/05/2024 Results Follow-Up [address] [phone] Cintia Zambrano FNP 11/04/2024 11:00 AM EDT Office Visit [address] [phone] Cintia Zambrano FNP from Last 3 Months [...] Pf, Maximiliano-sucrose, 30 Mcg/0.3 Ml, 12yr+ 04/11/2023 Pfizer-[employer] COVID-19 Vac cine Bivalent, ([employer] COVID-19 [...] 09/28/2022, 10/04/2016 Imm-Hepatitis B Completed 04/11/2023, 09/28/2022 [id number] Completed 01/08/2024, 03/29, 09/28/2022, Additional history exists [...] complication, without long-term current use of insulin ([facility]) TSH W/RFLX FREE T4 Routine 11/04/2024 11 [...] complication, without long-term current use of insulin ([facility]) IMAGING SCANNED DOCUMENT 10/20/2024 3:00 AM EDT IMAGING SCANNED DOCUMENT 10/20/2024 3:00 AM EDT REFERRAL SCANNED DOCUMENT 09/16/2024 3:00 AM EDT MICROALBUMIN/CREATININ E RATIO, URINE, RANDOM Routine 05/12/2024 8:40 AM EST Type 2 diabetes mellitus without complication, without long-term current use of insulin ([facility]) FECAL GLOBIN BY IMMUNOCHEMISTRY (FIT) Routine [...] EDT) 11/19/2024 3:00 AM EDT Cintia Zambrano [facility] REFERRAL Cyndi minor Result * (ABNORMAL) HGA1C W/EAG Routine (11/04/2024 11:16 AM EDT) HEMOGLOBIN A1C 7.2(H) <5.7 % [facility] Comment: For someone without known diabetes, a [...] diabetes for children. EAG (MG/DL) 160 mg/dL [facility] EAG (MMOL/L) 8.9 mmol/L [facility] Blood Blood / Unknown 11/04/2024 1 1:16 AM EDT 11/04/2024 11:17 AM EDT Narrative [facility] - 11/05/2024 9:27 AM EDT FASTING:YES COLLECTION KIT GIVEN TO PATIENT. PATIENT ADVISED TO RETURN. us Cintia [facility] - BLOOD DRAW Rajiv doug Result - Final Performing Organization Address [facility] Co de Phone Number [employer] [address] [address], [employer] [address] [address] * TSH W/RFLX FREE T4 Routine (11/04/2024 11:16 AM EDT) TSH W/REFLEX TO FT4 1.28 0.40 - 4.50 mIU/L [employer] [facility] Blood Blood / Unknown 11/04/2024 1 1:16 AM EDT 11/04/2024 11:17 AM EDT Narrative [facility] - 11/05/2024 9:27 AM EDT FASTING:YES COLLECTION KIT GIVEN TO PATIENT. PATIENT ADVISED TO RETURN. us Cintia [facility] - BLOOD DRAW Rajiv doug Result - Final Performing Organization Address [facility] de Phone Number [employer] [address] [address], [employer] [address] [address] * (ABNORMAL) LIPIDS W RFLX TO DIRECT LDL Routine (11/04/2024 11:16 AM EDT) CHOLESTEROL, TOTAL 170 <200 mg/dL [employer] [facility] HDL CHOLESTEROL 36(L) > OR = 40 mg/dL [employer] [facility] TRIGLYCERIDES 331(H) <150 mg/dL [employer] [facility] Comment: If a non-fasting specimen was collected, consider repeat triglyceride testing on a fasting specimen if clinically indicated. Joel et al. J. of Clin. Lipidol. 2015;9:129-169. LDL-CHOLESTEROL 90 99 mg/dL (calc) [facility] Comment: Reference range: <100 Desirable range <100 mg/dL for primary prevention; <70 mg/dL for patients with CHD or diabetic patients with > or = 2 CHD risk factors. LDL-C is now calculated using the Jennifer calculation, which is a validated novel method providing better accuracy than the Friedewald equation in the estimation of LDL-C. Nick SS et al. RONALD. 2013;310(19): 4217-7301 (http://education.Ridejoy/faq/BVI567) CHOL/HDLC RATIO 4.7 <5.0 (calc) [facility] NON-HDL CHOLESTEROL 134(H) <130 mg/dL (calc) [facility] Comment: For patients with diabetes plus 1 major ASCVD risk factor, treating to a non-HDL-C goal of <100 mg/dL (LDL-C of <70 mg/dL) is considered a therapeutic option. Blood Blood / Unknown 11/04/2024 1 1:16 AM EDT 11/04/2024 11:17 AM EDT Narrative [employer] ([facility]) - 11/05/2024 9:27 AM EDT FASTING:YES COLLECTION KIT GIVEN TO PATIENT. PATIENT ADVISED TO RETURN. Cintia Zambrano [facility] LAB - BLOOD DRAW Fin al Result [employer] ([facility]) [address] [place] [address], [employer] [address] [address] * BLOOD COUNT COMPLETE AUTO&AUTO DIFRNTL WBC Routine (11/04/2024 11:16 AM EDT) WHITE BLOOD CELL COUNT 5.9 3.8 - 10.8 Thousand/ uL [facility] RED BLOOD CELL COUNT 4.89 4.20 - 5.80 Million/u L [facility] HEMOGLOBIN 13.6 13.2 - 17.1 g/dL [facility] HEMATOCRIT 42.0 38.5 - 50.0 % [facility] MCV 85.9 80.0 - 100.0 fL [facility] MCH 27.8 27.0 - 33.0 pg [facility] MCHC 32.4 32.0 - 36.0 g/dL [facility] Comment: For adults, a slight decrease in the calculated MCHC value (in the range of 30 to 32 g/dL) is most likely not clinically significant; however, it should be interpreted with caution in correlation with other red cell parameters and the patient's clinical condition. RDW 13.7 11.0 - 15.0 % [facility] PLATELET COUNT 287 140 - 400 Thousand/ uL [facility] MPV 9.5 7.5 - 12.5 fL [facility] ABSOLUTE NEUTROPHILS 2,407 1,500 - 7,800 cells/uL [facility] ABSOLUTE LYMPHOCYTES 2,921 850 - 3,900 cells/uL [facility] ABSOLUTE MONOCYTES 419 200 - 950 cells/uL [employer] [facility] ABSOLUTE EOSINOPHILS 112 15 - 500 cells/uL [facility] ABSOLUTE BASOPHILS 41 0 - 200 cells/uL [facility] NEUTROPHILS PCT 40.8 % [employer] LYMPHOCYTES 49.5 % [facility] [employer] [facility] MONOCYTES 7.1 % [facility] [employer] [facility] EOSINOPHILS 1.9 % [facility] [employer] [facility] BASOPHILS 0.7 % [employer] [facility] Blood Blood / Unknown 11/04/2024 1 1:16 AM EDT 11/04/2024 11:17 AM EDT Narrative [employer] ([facility]) - 11/05/2024 9:27 AM EDT FASTING:YES COLLECTION KIT GIVEN TO PATIENT. PATIENT ADVISED TO RETURN. Cintia [facility] - BLOOD DRAW Rajiv doug Result - Final [employer] ([facility]) [address] [address], [facility] [address] [place] [address] * (ABNORMAL) COMPREHENSIVE METABOLIC PANEL Routine (11/04/2024 11:16 AM EDT) GLUCOSE 115(H) 65 - 99 mg/dL [facility] Comment: Fasting reference interval For someone without known diabetes, a glucose value between 100 and 125 mg/dL is consistent with prediabetes and should be confirmed with a follow-up test. UREA NITROGEN (BUN) 23 7 - 25 mg/dL [employer] [facility] CREATININE (blood) 2.37(H) 0.70 - 1.30 mg/dL [employer] [facility] EGFR 31(L) > OR = 60 mL/min/1. 73m2 [employer] [facility] BUN/CREATININE RATIO 10 6 - 22 (calc) [employer] [facility] SODIUM 136 135 - 146 mmol/L [employer] [facility] POTASSIUM 4.0 3.5 - 5.3 mmol/L [employer] [facility] CHLORIDE 104 98 - 110 mmol/L [employer] [facility] CARBON DIOXIDE 23 20 - 32 mmol/L [employer] [facility] CALCIUM 8.9 8.6 - 10.3 mg/dL [employer] [facility] PROTEIN, TOTAL 6.9 6.1 - 8.1 g/dL [employer] [facility] ALBUMIN 4.2 3.6 - 5.1 g/dL [employer] [facility] GLOBULIN 2.7 1.9 - 3.7 g/dL (calc) [employer] [facility] ALBUMIN/GLOBULI N RATIO 1.6 1.0 - 2.5 (calc) [employer] [facility] BILIRUBIN, TOTAL 0.3 0.2 - 1.2 mg/dL [employer] [facility] ALKALINE PHOSPHATASE 84 35 - 144 U/L [employer] [facility] AST 22 10 - 35 U/L [employer] [facility] ALT 40 9 - 46 U/L [employer] [facility] Blood Blood / Unknown 11/04/2024 1 1:16 AM EDT 11/04/2024 11:17 AM EDT Narrative [employer] [facility] - 11/05/2024 9:27 AM EDT FASTING:YES COLLECTION KIT GIVEN TO PATIENT. PATIENT ADVISED TO RETURN. Cintia [facility] - BLOOD DRAW Fin al Result [employer] [address] [address], [employer] [address] [address] * IMAGING SCANNED DOCUMENT (10/20/2024 3:00 AM EDT) Only the most recent of2 resultswithin the time period is included. 10/20/2024 3:00 AM EDT us Dmitri Arzola MD SCAN IMAGING Final Result * REFERRAL SCANNED DOCUMENT (09/16/2024 3:00 AM EDT) 09/16/2024 3:00 AM EDT us Dmitri Arzola MD SCAN REFERRAL Final Result * MICROALBUMIN/CREATININE RATIO, URINE, RANDOM (05/12/2024 8:40 AM EST) CREATININE, RANDOM URINE 125 20 - 320 mg/dL [facility] MICROALBUMIN 1.3 mg/dL [employer] [facility] Comment: Reference Range Not established MICROALBUMIN/CREA TININE RATIO, RANDOM URINE 10 <30 mg/g creat [facility] Comment: The ADA defines abnormalities in albumin [...] AM EST 05/12/2024 8:40 AM EST Narrative [employer] ([facility]) - 05/14/2024 6:43 PM EST SPLIT 02/03/2024 FROM [id number] us Dmitri Arzola MD LAB URINE AMBULATORY Final Resu lt [facility] [address] [address], [employer] [address] [address] * FECAL GLOBIN BY IMMUNOCHEMISTRY (FIT) (05/10/2024 7:00 PM EST) FECAL GLOBIN BY IMMUNOCHEMISTRY See Note [facility] Comment: FECAL GLOBIN BY IMMUNOCHEMISTRY Micro Number: [id number] Test Status: Final Specimen Source: Insure (tm) fobt test card Specimen Quality: Adequate Fecal Globin: Not Detected Stool Stool specimen / Unknown 05/10/2024 7:00 PM EST 05/14/2024 7:37 AM EST Dmitri Arzola MD LAB BODY FLUIDS AND STOOLS GUERLINE LO Final Result Performing Organization Address [facility]/ZIP Co de Phone Number [facility] [address] [address], [facility] [address] [address] * HEPATITIS A,B,C PANEL (05/08/2019 9:55 AM EST) Pathologist [facility] HEPATITIS B SURFACE ANTIBODY NEGATIVE NEGATIVE B[facility] [...] AM EST 05/08/2019 10:21 AM EST Narrative [facility] - 05/08/2019 1:59 PM EST [facility] SSN Funding, a member of [address] [address] [employer] - Roslyn Live MD PT ID [id number] ORD# [id number] L[facility] - BLOOD DRAW Edited Res ult - Final Performing Organization Address [facility]/ZIP Co de Phone Number [address] [address], * HIV-1 & HIV-2 ANTIBODIES (05/08/2019 9:55 AM EST) HIV 1 AND 2 ANTIBODY SCREEN NONREACTIVE NONREACTIVE [employer] [facility] Comment: HIV testing performed at reference lab due to reagent backorder. Test performed at: [facility] [address] [place] [address] Juan Carlos Martinez MD- Atomizer Assembler Blood specimen (specimen) Blood / Unknown 05/08/2019 9:55 AM EST 05/08/2019 10:21 AM EST Narrative [facility] - 05/13/2019 2:51 PM EST [employer], a member of [address] [address] Atomizer Assembler - Roslyn Live MD PT ID [id number] ORD# [id number] Lena Nascimento [employer] [facility] - BLOOD DRAW Final Resu lt [employer] [address], from Last 3 Months or Most Recently Relevant to Health Maintenance Insurance [employer] Care Teams Hand Ii Cutter Relationship Specialty Start Date End Date Dmitri Arzola MD [address] [place] [address] PCP - General Internal Medicine 05/05/19
== END 2024-12-16 15:08 | disposition home or self-care (01) ==
PROVIDERS: PCP Internal Medicine; Visit Provider Nurse Practitioner Family
DX: I10 Essential (primary) hypertension (principal); N18.31 Chronic kidney disease, stage 3a
CPT/HCPCS: 99213

== ENCOUNTER → 2024-12-16 14:43 | Outpatient (BNVA) | payer MEDICAID, SELFPAY | PROVIDERS: PCP Internal Medicine; Visit Provider Internal Medicine Nephrology | DX: N18.31 Chronic kidney disease, stage 3a (principal); N17.9 Acute kidney failure, unspecified; I10 Essential (primary) hypertension | CPT/HCPCS: 99212 ==

== ENCOUNTER 2024-12-30 07:06 | Outpatient (REF) | payer MEDICAID, SELFPAY ==
--- OUTSIDE RECORDS SUMMARY | 2024-12-30 07:08 | XMS_ITS | Clinical Summary ---
Author Organization [facility] Address [address] [place] [address] Care Team Providers Care Finding Fastener Name Role Phone Dmitri Arzola MD Primary [...] dsdvIndications:M oderate persistent asthma with acute exacerbation ([facility]) INHALE 1 PUFF BY MOUTH EVERY DAY 60 Each 3 022 Active aspirin 81 mg chewable tablet Take 81 mg by mouth once daily 023 Active blood-glucose meter monitoring kitIndications:Ty pe 2 diabetes mellitus without complication, without long-term current use of insulin ([facility]) Pt is Diabetic . E11.9 1 Each 024 Active alcohol swabsIndications: Type 2 diabetes mellitus without complication, without long-term current use of insulin ([facility]) Pt is Diabetic . E11.9 once a day 100 Each 1 025 Active blood sugar diagnostic (FREESTYLE TEST) stripsIndications :Type 2 diabetes mellitus without complication, without long-term current use of insulin ([facility]) USE TO TEST ONCE A DAY 100 Each 11 025 Active lancets (FREESTYLE LANCETS) 28 gaugeIndications: Type 2 diabetes mellitus without complication, without long-term current use of insulin ([facility]) Pt is Diabetic . E11.9 check [...] to occlusion of left anterior cerebral artery ([facility]),Mixed hyperlipidemia TAKE 1 TABLET BY MOUTH EVERY DAY 90 Tablet 1 025 Active omeprazole (PRILOSEC) [address] capsuleIndication s:Gastroesophagea l reflux disease without esophagitis TAKE 1 CAPSULE BY MOUTH EVERY DAY IN THE MORNING BEFORE BREAKFAST 90 Capsule 2 025 Active metFORMIN (GLUCOPHAGE) 500 mg tabletIndications :Controlled type 2 diabetes mellitus without complication, without long-term current use of insulin ([facility]) TAKE 1 TABLET BY MOUTH TWICE A DAY WITH FOOD 180 Tablet 025 Active ELIQUIS 5 mg tabIndications:Ar m DVT (deep venous thromboembolism), acute, right (CMS & HHS-HCC) TAKE 1 TABLET BY MOUTH TWICE A DAY 60 Tablet 1 025 Active atenoloL (TENORMIN) 50 mg tabletIndications :Primary hypertension TAKE 1 TABLET BY MOUTH EVERY DAY 90 Tablet 025 Active ELIQUIS 5 mg tabIndications:Ar m DVT (deep venous thromboembolism), acute, right (CMS & HHS-HCC) TAKE 1 TABLET BY MOUTH TWICE A DAY 60 Tablet 1 025 2024 Discontinued atenoloL (TENORMIN) 50 mg tabletIndications :Primary hypertension TAKE 1 TABLET BY MOUTH EVERY DAY 90 Tablet 025 2024 Discontinued Active Problems Problem Noted Date Diagnosed Date Arm DVT (deep venous thrombo embolism), acute, right (CMS & HHS-HCC) 06/16/2024 Overview (06/16/2024): [facility] 06/09/2024 Admitted for Right sided neck pain and swelling . Sent to Er by Divisional Human Resources Director for concern of DVT Right Internal Jugular vein . Right IJ Perm Cath removed. Venous Duplex showed positive for DVT Right IJ Vein . Started on Eliquis 10 mg po bid for 7 days then 5 mg po bid Food insecurity 04/16/2024 Financial difficulties 04/16/2024 Cerebrovascular accident (CV A) due to occlusion of left anterior cerebral artery ([facility]) 09/26/2022 Overview (09/26/2022): Admitted [facility]- Admitted 09/21/22 and Woke up in middle [...] melly, without long-term current use of insulin ([facility]) 01/04/2015 Lump 10/28/2014 Overview (10/28/2014): R foot [facility] 09/2014: negative Mild intermittent asthma ([facility]) 09/28/2014 Overview (09/28/2014): Since childhood Gastroesophageal reflux [...] Department Care Team Description 11/05/2024 Results Follow-Up [address] [phone] Cintia Zambrano FNP 11/04/2024 11:00 AM EDT Office Visit [address] [phone] Cintia Zambrano FNP from Last 3 Months [...] Pf, Maximiliano-sucrose, 30 Mcg/0.3 Ml, 12yr+ 04/11/2023 Pfizer-BioJP3 Measurement COVID-19 Vac cine Bivalent, (CORCORAN PFIZER-BIONTECH COVID-19 [...] 04/11/2023, Additional history exists FIT/gFOBT 05/10/2025 05/10/2024, 03/0 10/2021, 07/03/2021, Additional [...] 09/28/2022, 10/04/2016 Imm-Hepatitis B Completed 04/11/2023, 09/28/2022 [id number]-31 Completed 01/08/2024, 03/29, 09/28/2022, Additional history exists Alcohol and Drug Screen Completed 07/02/19 25, 07/11/2023, 09/28/2022, Additional history exists Depression Annual Screen Completed 025, 07/11/2023, 09/28/2014 Imm-Zoster, Recombinant Completed 07/01/2024, 02/02 Procedures Procedure Name Priority Date/Time Associated Diagnosis Comments REFERRAL SCANNED DOCUMENT 12/16/2024 3:00 AM EDT REFERRAL TO OPHTHALMOLOGY Routine 11/19/2024 3:00 AM [...] complication, without long-term current use of insulin ([facility]) TSH W/RFLX FREE T4 Routine 11/04/2024 11 [...] complication, without long-term current use of insulin ([facility]) IMAGING SCANNED DOCUMENT 10/20/2024 3:00 AM EDT IMAGING SCANNED DOCUMENT 10/20/2024 3:00 AM EDT MICROALBUMIN/CREATININ E RATIO, URINE, RANDOM Routine 05/12/2024 8:40 AM EST Type 2 diabetes mellitus without complication, without long-term current use of insulin ([facility]) FECAL GLOBIN BY IMMUNOCHEMISTRY (FIT) Routine [...] Health Maintenance Results * REFERRAL SCANNED DOCUMENT (12/16/2024 3:00 AM EDT) 12/16/2024 3:00 AM EDT Dmitri Arzola MD SCAN REFERRAL Final Result * REFERRAL TO OPTHALMOLOGY (11/19/2024 3:00 AM EDT) 11/19/2024 3:00 AM EDT Cintia HUMPHRIESP REFERRAL Cyndi minor Result * (ABNORMAL) HGA1C W/EAG Routine (11/04/2024 11:16 AM EDT) HEMOGLOBIN A1C 7.2(H) <5.7 % [employer] [facility] Comment: For someone without known diabetes, a [...] diabetes for children. EAG (MG/DL) 160 mg/dL [facility] EAG (MMOL/L) 8.9 mmol/L [facility] Blood Blood / Unknown 11/04/2024 1 1:16 AM EDT 11/04/2024 11:17 AM EDT Narrative [employer] - 11/05/2024 9:27 AM EDT FASTING:YES COLLECTION KIT GIVEN TO PATIENT. PATIENT ADVISED TO RETURN. us Cintia [facility]ILL[facility] - BLOOD DRAW Rajiv duog Result - Final Performing Organization Address [facility] [address] [facility] Co de Phone Number [employer] [address] [place] [phone], [employer] [address] [place] [phone] * TSH W/RFLX FREE T4 Routine (11/04/2024 11:16 AM EDT) TSH W/REFLEX TO FT4 1.28 0.40 - 4.50 mIU/L [facility] Blood Blood / Unknown 11/04/2024 1 1:16 AM EDT 11/04/2024 11:17 AM EDT Narrative [employer] - 11/05/2024 9:27 AM EDT FASTING:YES COLLECTION KIT GIVEN TO PATIENT. PATIENT ADVISED TO RETURN. us Cintia [facility] - BLOOD DRAW Rajiv doug Result - Final Performing Organization Address [facility] [address]/[facility] Co de Phone Number [employer] [address] [place] [phone], [employer] [address] [phone] * (ABNORMAL) LIPIDS W RFLX TO DIRECT LDL Routine (11/04/2024 11:16 AM EDT) CHOLESTEROL, TOTAL 170 <200 mg/dL [employer] [facility] HDL CHOLESTEROL 36(L) > OR = 40 mg/dL [facility] TRIGLYCERIDES 331(H) <150 mg/dL [employer] [facility] Comment: If a non-fasting specimen was collected, consider repeat triglyceride testing on a fasting specimen if clinically indicated. Joel et al. J. of Clin. Lipidol. 2015;9:129-169. LDL-CHOLESTEROL 90 99 mg/dL (calc) [employer] [facility] Comment: Reference range: <100 Desirable range <100 mg/dL for primary prevention; <70 mg/dL for patients with CHD or diabetic patients with > or = 2 CHD risk factors. LDL-C is now calculated using the Jennifer calculation, which is a validated novel method providing better accuracy than the Friedewald equation in the estimation of LDL-C. Nick SS et al. RONALD. 2013;310(19): 5596-5931 (http://education.Skinny Mom/faq/NDC849) CHOL/HDLC RATIO 4.7 <5.0 (calc) [employer] [facility] NON-HDL CHOLESTEROL 134(H) <130 mg/dL (calc) [facility] Comment: For patients with diabetes plus 1 major ASCVD risk factor, treating to a non-HDL-C goal of <100 mg/dL (LDL-C of <70 mg/dL) is considered a therapeutic option. Blood Blood / Unknown 11/04/2024 1 1:16 AM EDT 11/04/2024 11:17 AM EDT Narrative [employer] [facility] - 11/05/2024 9:27 AM EDT FASTING:YES COLLECTION KIT GIVEN TO PATIENT. PATIENT ADVISED TO RETURN. Cintia [facility] - BLOOD DRAW Fin al Result [employer] [address] [place] [phone], [facility] [address] [place] [phone] * BLOOD COUNT COMPLETE AUTO&AUTO DIFRNTL WBC Routine (11/04/2024 11:16 AM EDT) WHITE BLOOD CELL COUNT 5.9 3.8 - 10.8 Thousand/ uL [facility] RED BLOOD CELL COUNT 4.89 4.20 - 5.80 Million/u L [facility] HEMOGLOBIN 13.6 13.2 - 17.1 g/dL [facility] HEMATOCRIT 42.0 38.5 - 50.0 % [facility] MCV 85.9 80.0 - 100.0 fL [facility] MCH 27.8 27.0 - 33.0 pg [facility] MCHC 32.4 32.0 - 36.0 g/dL [facility] Comment: For adults, a slight decrease in the calculated MCHC value (in the range of 30 to 32 g/dL) is most likely not clinically significant; however, it should be interpreted with caution in correlation with other red cell parameters and the patient's clinical condition. RDW 13.7 11.0 - 15.0 % [employer] [facility] PLATELET COUNT 287 140 - 400 Thousand/ uL [employer] [facility] MPV 9.5 7.5 - 12.5 fL [facility] ABSOLUTE NEUTROPHILS 2,407 1,500 - 7,800 cells/uL [employer] [facility] ABSOLUTE LYMPHOCYTES 2,921 850 - 3,900 cells/uL [employer] [facility] ABSOLUTE MONOCYTES 419 200 - 950 cells/uL [employer] [facility] ABSOLUTE EOSINOPHILS 112 15 - 500 cells/uL [employer] [facility] ABSOLUTE BASOPHILS 41 0 - 200 cells/uL [employer] [facility] NEUTROPHILS PCT 40.8 % [employer] [facility] LYMPHOCYTES 49.5 % [place] [facility] [employer] MONOCYTES 7.1 % [facility] [employer] [facility] EOSINOPHILS 1.9 % [place] BASOPHILS 0.7 % [employer] DIAG [employer] [facility] Blood Blood / Unknown 11/04/2024 1 1:16 AM EDT 11/04/2024 11:17 AM EDT Narrative [employer] [facility] - 11/05/2024 9:27 AM EDT FASTING:YES COLLECTION KIT GIVEN TO PATIENT. PATIENT ADVISED TO RETURN. Cintia [facility]ILL[facility] LAB - BLOOD DRAW Rajiv doug Result - Final [facility] [address] [address], [employer] [facility] [address] [place] [address] * (ABNORMAL) COMPREHENSIVE METABOLIC PANEL Routine (11/04/2024 11:16 AM EDT) GLUCOSE 115(H) 65 - 99 mg/dL [facility] Comment: Fasting reference interval For someone without known diabetes, a glucose value between 100 and 125 mg/dL is consistent with prediabetes and should be confirmed with a follow-up test. UREA NITROGEN (BUN) 23 7 - 25 mg/dL [facility] CREATININE (blood) 2.37(H) 0.70 - 1.30 mg/dL [facility] EGFR 31(L) > OR = 60 mL/min/1. 73m2 [facility] BUN/CREATININE RATIO 10 6 - 22 (calc) [facility] SODIUM 136 135 - 146 mmol/L [facility] POTASSIUM 4.0 3.5 - 5.3 mmol/L [facility] CHLORIDE 104 98 - 110 mmol/L [facility] CARBON DIOXIDE 23 20 - 32 mmol/L [facility] CALCIUM 8.9 8.6 - 10.3 mg/dL [facility] PROTEIN, TOTAL 6.9 6.1 - 8.1 g/dL [facility] ALBUMIN 4.2 3.6 - 5.1 g/dL [facility] GLOBULIN 2.7 1.9 - 3.7 g/dL (calc) [facility] ALBUMIN/GLOBULI N RATIO 1.6 1.0 - 2.5 (calc) [facility] BILIRUBIN, TOTAL 0.3 0.2 - 1.2 mg/dL [facility] ALKALINE PHOSPHATASE 84 35 - 144 U/L [facility] AST 22 10 - 35 U/L [facility] ALT 40 9 - 46 U/L [facility] Blood Blood / Unknown 11/04/2024 1 1:16 AM EDT 11/04/2024 11:17 AM EDT Narrative [facility] - 11/05/2024 9:27 AM EDT FASTING:YES COLLECTION KIT GIVEN TO PATIENT. PATIENT ADVISED TO RETURN. Cintia Duran-Quinn [facility] - BLOOD DRAW Fin al Result [facility] [address] [address], [employer] [address] [phone] * IMAGING SCANNED DOCUMENT (10/20/2024 3:00 AM EDT) Only the most recent of2 resultswithin the time period is included. 10/20/2024 3:00 AM EDT Dmitri Arzola MD SCAN IMAGING Final Result * MICROALBUMIN/CREATININE RATIO, URINE, RANDOM (05/12/2024 8:40 AM EST) CREATININE, RANDOM URINE 125 20 - 320 mg/dL [facility] MICROALBUMIN 1.3 mg/dL [employer] [facility] Comment: Reference Range Not established MICROALBUMIN/CREA TININE RATIO, RANDOM URINE 10 <30 mg/g creat [employer] [facility] Comment: The ADA defines abnormalities in [...] AM EST 05/12/2024 8:40 AM EST Narrative [facility] [employer] [facility] - 05/14/2024 6:43 PM EST SPLIT 02/03/2024 FROM [id number] Dmitri Arzola MD LAB URINE AMBULATORY Final Resu lt Performing Organization Address City/[facility] [address]/ZIP Co de Phone Number [facility] [address] [address], [employer] [address] [address] * FECAL GLOBIN BY IMMUNOCHEMISTRY (FIT) (05/10/2024 7:00 PM EST) FECAL GLOBIN BY IMMUNOCHEMISTRY See Note [facility] [place] Comment: FECAL GLOBIN BY IMMUNOCHEMISTRY Micro Number: [id number] Test Status: Final Specimen Source: Insure (tm) fobt test card Specimen Quality: Adequate Fecal Globin: Not Detected Stool Stool specimen / Unknown 05/10/2024 7:00 PM EST 05/14/2024 7:37 AM EST Dmitri Arzola MD LAB BODY FLUIDS AND STOOLS RACHELU TERESITA Final Result [facility] [address] [address], [employer] [address] [phone] * HEPATITIS A,B,C PANEL (05/08/2019 9:55 AM EST) Pathologist [facility] HEPATITIS B SURFACE ANTIBODY NEGATIVE NEGATIVE CARR[place]LL [...] AM EST 05/08/2019 10:21 AM EST Narrative [facility] - 05/08/2019 1:59 PM EST [employer], a member of [address] [address] [employer] - Roslyn Live MD PT ID [id number] ORD# [id number] Lena VILLASEÑOR LAB - BLOOD DRAW Edited Res ult - Final Performing Organization Address City/[facility] [address]/ZIP Co de Phone Number [address] [address], [place] [phone] * HIV-1 & HIV-2 ANTIBODIES (05/08/2019 9:55 AM EST) HIV 1 AND 2 ANTIBODY SCREEN NONREACTIVE NONREACTIVE [facility] [employer] [facility] Comment: HIV testing performed at reference lab due to reagent backorder. Test performed at: [facility] [address] [place] [address] Juan Carlos Martinez MD- [employer] Blood specimen (specimen) Blood / Unknown 05/08/2019 9:55 AM EST 05/08/2019 10:21 AM EST Narrative [employer] [facility] - 05/13/2019 2:51 PM EST [employer], a member of [address] [address] [employer] - Roslyn Live MD PT ID [id number] ORD# [id number] Lena HUMPHRIESP LAB - BLOOD DRAW Final Resu lt [facility] [address] [place] [address], [place] [phone] from Last 3 Months or Most Recently Relevant to Health Maintenance Insurance [employer] Care Teams Finding Fastener Relationship Specialty Start Date End Date Dmitri Arzola MD [address] [place] [address] PCP - General Internal Medicine 05/05/19
--- OUTSIDE RECORDS SUMMARY | 2024-12-30 07:08 | XMS_ITS | Clinical Summary ---
Author Organization [employer] [facility] Address [address] 7 [place] [address] Care Team Providers Care [employer] Supervisor Name Role Phone Unavailable Primary Care Provider Unavailabl e Encounters Date Type Department Care Team Description 11/17/2024 Population Health Risk Score [facility] Care [facility] (C3) Department [address] [phone] Provider, Population Health Generic from Last 3 [...]
[2024-12-30 08:10] LABS: Anion Gap 14 (12-20); Blood Urea Nitrogen 31 mg/dL (9-16); Carbon Dioxide 25 mmol/L (22-29); Chloride 104 mmol/L (96-108); Estimated Glomerular Filt Rate 26; Potassium 3.8 mmol/L (3.3-5.1); Sodium 139 mmol/L (135-145)
== END 2024-12-30 07:07 | disposition home or self-care (01) ==
LOC: HO.LAB 07:06
PROVIDERS: Visit Provider Nurse Practitioner Family
DX: N17.9 Acute kidney failure, unspecified (principal)
CPT/HCPCS: 36415; 80051; 82565; 84520

== ENCOUNTER 2025-01-02 14:28 | Emergency (ER) | payer MEDICAID, SELFPAY ==
[2025-01-02] VITALS (9 sets, daily range): BP systolic 176–229; BP diastolic 82–109; PULSE 70–96; RESP 14–26; TEMP 36.7–36.9; O2SAT 97–98; BMI 26.6
--- NOTE | ~2025-01-02 | CT_ITS ---
CLINICAL HISTORY: hypertensive, MORRIS CT head without contrast. COMPARISON: None provided. FINDINGS: The visualized paranasal sinuses are clear. The mastoid air cells are clear. No calvarial fracture. Atherosclerotic intracranial vasculature. No evidence for mass or mass effect. No intracranial hemorrhage or abnormal extra-axial fluid collection. No CT evidence of acute infarct. No evidence of hydrocephalus. The basilar cisterns are patent. There are periventricular areas of low attenuation compatible with mild white matter small vessel disease. Posterior fossa appears unremarkable. IMPRESSION: 1. No acute intracranial findings. This document has been electronically signed by: Ilir Sotomayor MD on 01/02/2025 15:37:25
--- NOTE | ~2025-01-02 | XR_ITS ---
EXAMINATION: XR CHEST CLINICAL INFORMATION: chest pain COMPARISON: October 17, 2024 TECHNIQUE: 2 views of the chest were obtained. FINDINGS: Submitted for interpretation on January 04, 2025 at 8:10 AM. Pulmonary reticular pattern. Prominence of the interstitial markings. No gross consolidation pleural fissure pneumothorax. Cardiomediastinal silhouette size is slightly prominent. Mild multilevel thoracic and upper lumbar spondylosis. XR/XR chest 2V IMPRESSION: Chronic interstitial lung disease with likely superimposed mild interstitial edema versus acute small airway inflammatory process. Electronically signed by: Angelo Khan MD 01/04/2025 08:05 AM EDT
--- NOTE | 2025-01-02 14:31 | ECG_ITS ---
Test Reason : chest pain Blood Pressure : */* mmHG Vent. Rate : 97 BPM Atrial Rate : 97 BPM P-R Int : 130 ms QRS Dur : 86 ms QT Int : 382 ms P-R-T Axes : 53 -44 90 degrees QTcB Int : 485 ms Sinus rhythm with frequent Premature ventricular complexes Left axis deviation Moderate voltage criteria for LVH, may be normal variant ( R in aVL , [place] product ) Nonspecific ST and T wave abnormality Prolonged QT Abnormal ECG When compared with ECG of 08-Jun-2024 18:38, Premature ventricular complexes are now Present Referred By: Katherine San Electronically Signed By: IAN ENGLISH MD
--- NOTE | 2025-01-02 14:43 | ED_ITS ---
HPI - General Adult General Chief complaint: Chest Pain Stated complaint: CP, high bp, headache Time Seen by Provider: 01/02/25 16:20 History of Present Illness HPI narrative: This is a 59 years old male presented to the emergency department with a chief complaint of headache palpitations for about a week he has a history of hypertension he has a history of DVT he has a history of chronic kidney disease he has been off the hypertensive medication for about 10 days. His blood pressure has been elevated at home. He states that he tried to call his primary care physician but no answer. Onset (ago): day(s) () Location: head and chest Radiation: non-radiation Severity: mild Relieving factors: none Exacerbating factors: none Associated symptoms: denies other symptoms Related Data Home Medications ?Medication ?Instructions ?Recorded ?Confirmed multivitamin 1 tab PO DAILY 09/19/2205/30 omeprazole 20 mg capsule,delayed 40 mg PO DAILY@0630 0 09/19/22 06/09/24 release metformin 500 mg tablet 500 mg PO BID 05/19/2406/09 umeclidinium 62.5 mcg-vilanterol 1 inh inhalation MANJULA Y 05/19/24 06/09/24 25 mcg/actuation powdr for inhalation (Anoro Ellipta) atenolol 50 mg tablet 50 mg PO DAILY 07/22/24 apixaban 5 mg tablet (Eliquis) 5 mg PO BID 09/16/24 Previous Rx's ?Medication ?Instructions ?Recorded atorvastatin 80 mg tablet 80 mg PO DAILY #30 tabs 08/28 10/19 amlodipine 10 mg tablet 10 mg PO DAILY #90 tabs 09/20 hydralazine 25 mg tablet 25 mg PO TID 30 days #90 tab s 12/16/24 atenolol 50 mg tablet 75 mg (1.5 x 50 mg) PO Q24H 30 01/02/25 days #45 tabs Allergies Allergy/AdvReac Type Severity Reaction Status Date / Time lisinopril Allergy Facial Verified 01/02/25 14:44 Swelling Review of Systems 2 Constitutional: Constitutional: Reports as per HPI Cardiovascular: Cardiovascular: Reports as per HPI Neurologic: Reports as per HPI [facility] Past Medical History Attestation statement: The following information was validated with the patient. Medical History Hypertension RAMONITA (acute kidney injury) Uncontrolled hypertension ESRD needing dialysis HLD (hyperlipidemia) Non-insulin dependent type 2 diabetes mellitus Asthma Social History Social History Household Members: Family Housing: Apartment Do you presently have visiting nurse or other home services: No Alcohol intake: former Patient Tobacco Use Status: Current someday Tobacco user Tobacco use type: Cigarette Cigarette Packs Per Day: 1 Cigarettes Per Day: 9 Smoked in Last 30 Days: Yes e-Cigarette/Vaping Use: Never Used Second Hand Smoke Exposure: No Use of substances other than those prescribed or required for medical reasons: No Advance Directives: No Advance Directives Information Provided: Yes Do you have a plan to hurt others: No Plan service: No Current occupational status: employed Physical Exam ED Exam Exam: He looks well is not toxic-appearing comfortable in the stretcher Vital Signs: Vital Signs - 24 hr 01/02/25 14:41 01/02/25 15:05 01/02/25 15:05 Temperature 98.4 F Pulse Rate 96 84 Pulse Rate [Monitor] 95 Respiratory Rate 16 18 Blood Pressure 229/109 H 219/101 H Pulse Oximetry 97 98 Oxygen Delivery Method Room Air Room Air 01/02/25 16:00 01/02/25 17:25 01/02/25 18:00 Temperature 98.4 F Pulse Rate 81 84 83 Pulse Rate [Monitor] Respiratory Rate 15 17 14 Blood Pressure 200/92 H 204/97 H 203/86 H Pulse Oximetry 98 97 98 Oxygen Delivery Method Room Air Room Air Room Air 01/02/25 20:32 01/02/25 20:40 01/02/25 20:41 Temperature 98.0 F Pulse Rate 70 70 Pulse Rate [Monitor] Respiratory Rate 26 H Blood Pressure 188/92 H 188/92 H 188/92 H Pulse Oximetry 98 Oxygen Delivery Method Room Air 01/02/25 21:48 Temperature 98.4 F Pulse Rate 76 Pulse Rate [Monitor] Respiratory Rate 18 Blood Pressure 176/82 H Pulse Oximetry 97 Oxygen Delivery Method Room Air BMI result Body Mass Index 26.6 Const General: cooperative Nutritional Appearance: average body habitus Orientation/consciousness: patient oriented x3 HENMT Head: Yes normal to inspection Ears: hearing grossly normal bilaterally Face and sinus: Yes normal facial exam Neck Neck: Yes normal visual inspection Chest Chest palpation & inspection: normal inspection of the chest Resp Effort & Inspection: normal respiratory effort Auscultation: clear to auscultation bilaterally Cardio Jugular venous distension: no JVD Rhythm: regular rhythm GI Inspection: Yes normal to inspection Palpation (GI): Soft to palpation, not firm and nontender Auscultation: normal bowel sounds Skin General skin exam: no rashes or lesions noted and elasticity normal Lesions: no lesions Rashes: no rashes Neuro General: patient oriented x3 Cranial nerves: Yes CN's II-XII intact bilaterally Course Course Course Narrative: This is a Rapid Medical Examination (RME) performed by Pratima San PA-C in triage. Full HPI, ROS, assessment and treatment plan per primary provider in the Main ED. Hx: 59 yo M here for eval of CP and headache, reports out of BP meds x1 week. on eliquis. Plan: labs, ekg, ct Medications Administered Discontinued Medications Generic Name Dose Route Start Last Admin Trade Name Freq PRN Reason Stop Dose Admin Amlodipine Besylate 10 mg 01/02/25 16:23 01/02/25 16:43 Amlodipine Besylate 10 Mg Tablet PO 01/02/25 16:24 10 mg ONCE ONE Administration Protocol Atenolol 50 mg 01/02/25 18:21 01/02/25 18:28 Atenolol 50 Mg Tablet PO 01/02/25 18:22 50 mg ONCE ONE Administration Protocol Atenolol 25 mg 01/02/25 19:29 01/02/25 20:41 Atenolol 25 Mg Tablet PO 01/02/25 19:30 25 mg ONCE ONE Administration Protocol Clonidine HCl 0.1 mg 01/02/25 18:21 01/02/25 18:28 Clonidine Hcl 0.1 Mg Tablet PO 01/02/25 18:22 0.1 mg ONCE ONE Administration Protocol Hydralazine HCl 25 mg 01/02/25 19:29 01/02/25 20:40 Hydralazine Hcl 25 Mg Tablet PO 01/02/25 19:30 25 mg ONCE ONE Administration Protocol Medical Decision Making Medical Decision Making [facility] Narrative: Patient presented with a elevated blood pressure headache chest pain the symptoms most likely secondary to hypertension. We will check an EKG anyway we will check labs administer antihypertensive and reassess Differential Diagnosis Differential Diagnoses: The differential diagnosis associated with the presentation includes ACS/head bleed Lab Data MDM Lab Attestation statement: I reviewed the patient's lab results. 01/02/25 15:05 01/02/25 15:05 Labs: Lab Results 01/02/25 01/02/25 01/02/25 Range/Units 15:05 17:29 19:30 WBC 6.2 (4.8-10.8) X10*3/uL RBC 4.23 L (4.60-5.80) X10*6/uL Hgb 12.2 L (14.0-18.0) g/dl Hct 35.5 L (42.0-52.0) % MCV 83.9 (80.0-98.0) fL MCH 28.8 (27.0-33.0) pg MCHC 34.4 (31.0-36.0) g/dl RDW 14.7 (11.0-16.0) % Plt Count 255 (160-400) X10*3/uL MPV 9.5 (9.4-12.4) fL Immature Gran % (Auto) 0.2 (0.0-0.4) % Neut % (Auto) 50.0 (45-73) % Lymph % (Auto) 39.1 (20-40) % [place] % (Auto) 7.9 (2-11) % Eos % (Auto) 2.3 (0-4) % Baso % (Auto) 0.5 (0-2) % Lymph # (Auto) 2.4 (1.2-4.9) X10*3/uL [place] # (Auto) 0.5 (0.1-1.2) X10*3/uL Eos # (Auto) 0.1 (0.0-0.4) X10*3/uL Baso # (Auto) 0.0 (0.0-0.2) X10*3/uL Abs Immat Gran (auto) 0.01 (0.00-0.03) X10*3/uL Absolute Neuts (auto) 3.1 (2.0-8.3) x10*3/uL Absolute Nucleated RBC 0.000 (0.0-0.012) X10*3/uL Nucleated RBC % (auto) 0.0 (0.0-0.2) /100WBC Sodium 140 (135-145) mmol/L Potassium 3.8 (3.3-5.1) mmol/L Chloride 106 (96-108) mmol/L Carbon Dioxide 24 (22-29) mmol/L Anion Gap 14 (12-20) BUN 25 H (9-16) mg/dL Creatinine 2.75 H (0.5-1.4) mg/dL Estim Creat Clear Calc 29.8 Estimated GFR 24 Random Glucose 132 H (60-115) mg/dL Calcium 8.9 D (8.4-10.2) mg/dL Magnesium 2.0 (1.6-2.6) mg/dL Total Bilirubin 0.2 (0.0-1.0) mg/dL AST 18 (5-37) U/L ALT 29 (0-40) U/L Alkaline Phosphatase 88 (39-117) U/L Troponin I High Sens 16.9 D 19.0 (<3.5-35.0) ng/L Total Protein 7.1 (6.5-8.0) g/dL Albumin 4.3 (3.5-5.0) g/dL Lipase 44 (8-78) U/L Urine Color Yellow Urine Appearance Clear Urine pH 7.0 (5.0-9.0) Ur Specific Crystal 1.015 (1.005-1.025) Urine Protein 300 (3+) H (Neg-Trace) mg/dL Urine Glucose (UA) Negative (Negative) mg/dL Urine Ketones Negative (Negative) mg/dL Urine Blood Negative (Negative) Urine Nitrite Negative (Negative) Ur Leukocyte Esterase Negative (Negative) Urine RBC 0-2 (0-2) /HPF Urine WBC 0-5 (0-5) /HPF Ur Squamous Epith Cells 0-2 (0-2) /HPF Urine Bacteria None Seen (None Seen) Hyaline Casts 0-2 (0-2) /LPF Independent Interpretation I performed an independent interpretation of an: EKG Interpretation: EKG was reviewed interpreted by me as sinus rhythm 2 PVCs in the tracing no ischemic changes Critical Care Time Critical Care Time Critical Care Time: Yes Total Critical Care Time: 60 Attestation: elvated BP requiring multiple dose of po meds Discharge Plan Discharge Clinical Impression: Hypertension Qualifiers: Hypertension type: primary hypertension Qualified Code(s): I10 - Essential (primary) hypertension Patient Disposition: Home, Self-Care Instructions: Hypertension (ED) Additional Instructions: Follow-up with your primary care physician we sent a prescription for you to the pharmacy [facility] return if Prescriptions: New atenolol 50 mg tablet 75 mg PO Q24H 30 Days Qty: 45 0RF No Action multivitamin Tablet 1 tab PO DAILY omeprazole 20 mg Capsule,Delayed Release(Dr/Ec) 40 mg PO DAILY@0630 atorvastatin 80 mg Tablet 80 mg PO DAILY Qty: 30 3RF metformin 500 mg tablet 500 mg PO BID Anoro Ellipta 62.5-25 mcg/actuation Blister With Device 1 inh INHALATION DAILY amlodipine 10 mg Tablet 10 mg PO DAILY Qty: 90 0RF Protocol: Hold for SBP< HOLD for SBP < : 90 hydralazine 25 mg tablet 25 mg PO TID 30 Days Qty: 90 2RF atenolol 50 mg tablet 50 mg PO DAILY Eliquis 5 mg tablet 5 mg PO BID Referrals: Dmitri Arzola MD [Primary Care Provider, Internal Medicine] - 01/04/25 Interventions: ED Discharge Assessment Last Done: 01/02/25 21:48 Discharge Date/Time: 01/02/25 21:53 Print Language: [place]
--- OUTSIDE RECORDS SUMMARY | 2025-01-02 14:57 | XMS_ITS | Clinical Summary ---
Author Organization [facility] Address [address] [place] [address] Care Team Providers Care Fiberglass Roller Name Role Phone Dmitri Arzola MD Primary [...] dsdvIndications:M oderate persistent asthma with acute exacerbation ([facility]) INHALE 1 PUFF BY MOUTH EVERY DAY 60 Each 3 022 Active aspirin 81 mg chewable tablet Take 81 mg by mouth once daily 023 Active blood-glucose meter monitoring kitIndications:Ty pe 2 diabetes mellitus without complication, without long-term current use of insulin ([facility]) Pt is Diabetic . E11.9 1 Each 024 Active alcohol swabsIndications: Type 2 diabetes mellitus without complication, without long-term current use of insulin ([facility]) Pt is Diabetic . E11.9 once a day 100 Each 1 025 Active blood sugar diagnostic (FREESTYLE TEST) stripsIndications :Type 2 diabetes mellitus without complication, without long-term current use of insulin ([facility]) USE TO TEST ONCE A DAY 100 Each 11 025 Active amLODIPine (NORVASC) 10 mg tablet [...] to occlusion of left anterior cerebral artery ([facility]),Mixed hyperlipidemia TAKE 1 TABLET BY MOUTH EVERY DAY 90 Tablet 1 025 Active omeprazole (PRILOSEC) [address] capsuleIndication s:Gastroesophagea l reflux disease without esophagitis TAKE 1 CAPSULE BY MOUTH EVERY DAY IN THE MORNING BEFORE BREAKFAST 90 Capsule 2 025 Active metFORMIN (GLUCOPHAGE) 500 mg tabletIndications :Controlled type 2 diabetes mellitus without complication, without long-term current use of insulin ([facility]) TAKE 1 TABLET BY MOUTH TWICE A DAY WITH FOOD 180 Tablet 025 Active ELIQUIS 5 mg tabIndications:Ar m DVT (deep venous thromboembolism), acute, right ([facility]) TAKE 1 TABLET BY MOUTH TWICE A DAY 60 Tablet 1 025 Active atenoloL (TENORMIN) 50 mg tabletIndications :Primary hypertension TAKE 1 TABLET BY MOUTH EVERY DAY 90 Tablet 025 Active lancets (FREESTYLE LANCETS) 28 gaugeIndications: Type 2 diabetes mellitus without complication, without long-term current use of insulin ([facility]) CHECK ONCE A DAY 100 Each 1 025 Active lancets (FREESTYLE LANCETS) 28 gaugeIndications: Type 2 diabetes mellitus without complication, without long-term current use of insulin ([facility]) Pt is Diabetic . E11.9 check once a day 100 Each 1 025 2024 Discontinued ELIQUIS 5 mg tabIndications:Ar m DVT (deep venous thromboembolism), acute, right ([facility]) TAKE 1 TABLET BY MOUTH TWICE A DAY 60 Tablet 1 025 2024 Discontinued atenoloL (TENORMIN) 50 mg tabletIndications :Primary hypertension TAKE 1 TABLET BY MOUTH EVERY DAY 90 Tablet 025 2024 Discontinued Active Problems Problem Noted Date Diagnosed Date Arm DVT (deep venous thrombo embolism), acute, right ([facility]) 06/16/2024 Overview (06/16/2024): [facility] 06/09/2024 Admitted for Right sided neck pain and swelling . Sent to Er by Administrative Resident for concern of DVT Right Internal Jugular vein . Right IJ Perm Cath removed. Venous Duplex showed positive for DVT Right IJ Vein . Started on Eliquis 10 mg po bid for 7 days then 5 mg po bid Food insecurity 04/16/2024 Financial difficulties 04/16/2024 Cerebrovascular accident (CV A) due to occlusion of left anterior cerebral artery ([facility]) 09/26/2022 Overview (09/26/2022): Admitted [facility]- Admitted 09/21/22 and Woke up in [...] melly, without long-term current use of insulin ([facility]) 01/04/2015 Lump 10/28/2014 Overview (10/28/2014): R foot [facility] 09/2014: negative Mild intermittent asthma ([facility]) 09/28/2014 Overview (09/28/2014): Since childhood Gastroesophageal reflux [...] Department Care Team Description 11/05/2024 Results Follow-Up [address] [address] Cintia Zambrano FNP 11/04/2024 11:00 AM EDT Office Visit [address] [address] Cintia Zambrano FNP from Last 3 Months [...] Pf, Maximiliano-sucrose, 30 Mcg/0.3 Ml, 12yr+ 04/11/2023 [employer] COVID-19 Vac cine Bivalent, ([employer] COVID-19 VACCINE BIVALENT, (CORCORAN CAP 09/28/2022 TDAP 05/06/2019 ZOSTER VACCINE, RECOMBINANT (SHINGRIX) ,02/03/2024 Family History Medical History Relation Name Comments [...] 02/02/2025 023, 05/06/2019 Hemoglobin A1c 02/04/2025 11/04/2024, 100 10/2023, 04/11/2023, Additional history exists FIT/gFOBT 05/10/2025 05/10/2024, 030 10/2021, 07/03/2021, Additional history exists Urine Albumin [...] 09/28/2022, 10/04/2016 Imm-Hepatitis B Completed 04/11/2023, 09/28/2022 [id number] Completed 01/08/2024, 03/29, 09/28/2022, Additional history exists [...] complication, without long-term current use of insulin ([facility]) TSH W/RFLX FREE T4 Routine 11/04/2024 11 [...] complication, without long-term current use of insulin ([facility]) REFERRAL SCANNED DOCUMENT 10/26/2024 3:00 AM EDT IMAGING SCANNED DOCUMENT 10/20/2024 3:00 AM EDT IMAGING SCANNED DOCUMENT 10/20/2024 3:00 AM EDT MICROALBUMIN/CREATININ E RATIO, URINE, RANDOM Routine 05/12/2024 8:40 AM EST Type 2 diabetes mellitus without complication, without long-term current use of insulin ([facility]) FECAL GLOBIN BY IMMUNOCHEMISTRY (FIT) Routine 05/10/2024 [...] REFERRAL SCANNED DOCUMENT (12/16/2024 3:00 AM EDT) Only the most recent of2 resultswithin the time period is included. 12/16/2024 3:00 AM EDT Dmitri Arzola MD SCAN REFERRAL Final Result * REFERRAL TO OPTHALMOLOGY (11/19/2024 3:00 AM EDT) 11/19/2024 3:00 AM EDT us [facility] Cyndi l Result * (ABNORMAL) HGA1C W/EAG Routine (11/04/2024 11:16 AM EDT) HEMOGLOBIN A1C 7.2(H) <5.7 % [facility] Comment: For someone without known diabetes, a [...] diabetes for children. EAG (MG/DL) 160 mg/dL [facility] EAG (MMOL/L) 8.9 mmol/L [facility] Blood Blood / Unknown 11/04/2024 1 1:16 AM EDT 11/04/2024 11:17 AM EDT Narrative [facility] - 11/05/2024 9:27 AM EDT FASTING:YES COLLECTION KIT GIVEN TO PATIENT. PATIENT ADVISED TO RETURN. [facility] - BLOOD DRAW Rajiv doug Result - Final [facility] [address] [place] [id number], [facility] [address] [address] * TSH W/RFLX FREE T4 Routine (11/04/2024 11:16 AM EDT) TSH W/REFLEX TO FT4 1.28 0.40 - 4.50 mIU/L [facility] Blood Blood / Unknown 11/04/2024 1 1:16 AM EDT 11/04/2024 11:17 AM EDT Narrative [facility] - 11/05/2024 9:27 AM EDT FASTING:YES COLLECTION KIT GIVEN TO PATIENT. PATIENT ADVISED TO RETURN. us Cintia [facility] - BLOOD DRAW Rajiv doug Result - Final [facility] [address] [address], [facility] [address] [place] [address] * (ABNORMAL) LIPIDS W RFLX TO DIRECT LDL Routine (11/04/2024 11:16 AM EDT) CHOLESTEROL, TOTAL 170 <200 mg/dL [facility] HDL CHOLESTEROL 36(L) > OR = 40 mg/dL [facility] TRIGLYCERIDES 331(H) <150 mg/dL [facility] Comment: If a non-fasting specimen was collected, consider repeat triglyceride testing on a fasting specimen if clinically indicated. Joel et al. J. of Clin. Lipidol. 2015;9:129-169. LDL-CHOLESTEROL 90 99 mg/dL (calc) [facility] Comment: Reference range: <100 Desirable range <100 mg/dL for primary prevention; <70 mg/dL for patients with CHD or diabetic patients with > or = 2 CHD risk factors. LDL-C is now calculated using the Nick-Juan calculation, which is a validated novel method providing better accuracy than the Friedewald equation in the estimation of LDL-C. Nick SS et al. RONALD. 2013;310(19): 8003-8058 (http://education.Instant API/faq/AKT112) CHOL/HDLC RATIO 4.7 <5.0 (calc) [facility] NON-HDL CHOLESTEROL 134(H) <130 mg/dL (calc) [facility] Comment: For patients with diabetes plus 1 major ASCVD risk factor, treating to a non-HDL-C goal of <100 mg/dL (LDL-C of <70 mg/dL) is considered a therapeutic option. Blood Blood / Unknown 11/04/2024 1 1:16 AM EDT 11/04/2024 11:17 AM EDT Narrative [employer] [facility] - 11/05/2024 9:27 AM EDT FASTING:YES COLLECTION KIT GIVEN TO PATIENT. PATIENT ADVISED TO RETURN. Cintia Zambrano [facility] - BLOOD DRAW Fin al Result [facility] [address] [address], [employer] [facility] [address] [place] [address] * BLOOD COUNT COMPLETE AUTO&AUTO DIFRNTL WBC Routine (11/04/2024 11:16 AM EDT) Pathologist [facility] WHITE BLOOD CELL COUNT 5.9 3.8 - 10.8 Thousand/ uL [facility] RED BLOOD CELL COUNT 4.89 4.20 - 5.80 Million/u L [facility] HEMOGLOBIN 13.6 13.2 - 17.1 g/dL [facility] HEMATOCRIT 42.0 38.5 - 50.0 % [facility] MCV 85.9 80.0 - 100.0 fL [employer] MCH 27.8 27.0 - 33.0 pg [facility] MCHC 32.4 32.0 - 36.0 g/dL [employer] Comment: For adults, a slight decrease in the calculated MCHC value (in the range of 30 to 32 g/dL) is most likely not clinically significant; however, it should be interpreted with caution in correlation with other red cell parameters and the patient's clinical condition. RDW 13.7 11.0 - 15.0 % [employer] PLATELET COUNT 287 140 - 400 Thousand/ uL [facility] MPV 9.5 7.5 - 12.5 fL [facility] ABSOLUTE NEUTROPHILS 2,407 1,500 - 7,800 cells/uL [facility] ABSOLUTE LYMPHOCYTES 2,921 850 - 3,900 cells/uL [facility] ABSOLUTE MONOCYTES 419 200 - 950 cells/uL [facility] ABSOLUTE EOSINOPHILS 112 15 - 500 cells/uL [facility] ABSOLUTE BASOPHILS 41 0 - 200 cells/uL [facility] NEUTROPHILS PCT 40.8 % [facility] [employer] LYMPHOCYTES 49.5 % [facility] MONOCYTES 7.1 % [facility] EOSINOPHILS 1.9 % [facility] [employer] BASOPHILS 0.7 % [facility] Blood Blood / Unknown 11/04/2024 1 1:16 AM EDT 11/04/2024 11:17 AM EDT Narrative [employer] [facility] - 11/05/2024 9:27 AM EDT FASTING:YES COLLECTION KIT GIVEN TO PATIENT. PATIENT ADVISED TO RETURN. Cintia Zambrano [facility] - BLOOD DRAW Rajiv dogu Result - Final [facility] [address] [address], [facility] [address] [place] [address] * (ABNORMAL) COMPREHENSIVE METABOLIC PANEL Routine (11/04/2024 11:16 AM EDT) GLUCOSE 115(H) 65 - 99 mg/dL [facility] Comment: Fasting reference interval For someone without known diabetes, a glucose value between 100 and 125 mg/dL is consistent with prediabetes and should be confirmed with a follow-up test. UREA NITROGEN (BUN) 23 7 - 25 mg/dL [facility] CREATININE (blood) 2.37(H) 0.70 - 1.30 mg/dL [facility] EGFR 31(L) > OR = 60 mL/min/1. 73m2 [facility] BUN/CREATININE RATIO 10 6 - 22 (calc) [facility] SODIUM 136 135 - 146 mmol/L [facility] POTASSIUM 4.0 3.5 - 5.3 mmol/L [facility] CHLORIDE 104 98 - 110 mmol/L [facility] CARBON DIOXIDE 23 20 - 32 mmol/L [facility] CALCIUM 8.9 8.6 - 10.3 mg/dL [facility] PROTEIN, TOTAL 6.9 6.1 - 8.1 g/dL [facility] ALBUMIN 4.2 3.6 - 5.1 g/dL [facility] GLOBULIN 2.7 1.9 - 3.7 g/dL (calc) [facility] ALBUMIN/GLOBULI N RATIO 1.6 1.0 - 2.5 (calc) [facility] BILIRUBIN, TOTAL 0.3 0.2 - 1.2 mg/dL [facility] ALKALINE PHOSPHATASE 84 35 - 144 U/L [facility] AST 22 10 - 35 U/L [facility] ALT 40 9 - 46 U/L [facility] Blood Blood / Unknown 11/04/2024 1 1:16 AM EDT 11/04/2024 11:17 AM EDT Narrative [facility] - 11/05/2024 9:27 AM EDT FASTING:YES COLLECTION KIT GIVEN TO PATIENT. PATIENT ADVISED TO RETURN. Cintia Zambrano [facility] - BLOOD DRAW Fin al Result [facility] [address] [address], [place] [facility] [address] [address] * IMAGING SCANNED DOCUMENT (10/20/2024 3:00 AM EDT) Only the most recent of2 resultswithin the time period is included. 10/20/2024 3:00 AM EDT us Dmitri Arzola MD SCAN IMAGING Final Result * MICROALBUMIN/CREATININE RATIO, URINE, RANDOM (05/12/2024 8:40 AM EST) CREATININE, RANDOM URINE 125 20 - 320 mg/dL [facility] MICROALBUMIN 1.3 mg/dL [facility] Comment: Reference Range Not established MICROALBUMIN/CREA TININE RATIO, RANDOM URINE 10 <30 mg/g creat [facility] Comment: The ADA defines abnormalities in [...] AM EST 05/12/2024 8:40 AM EST Narrative [facility] [employer] - 05/14/2024 6:43 PM EST SPLIT 02/03/2024 FROM [id number] us Dmitri Arzola MD LAB URINE AMBULATORY Final Resu lt Performing Organization Address [facility]/ZIP Co de Phone Number [facility] [address] [address], [facility] [address] [address] * FECAL GLOBIN BY IMMUNOCHEMISTRY (FIT) (05/10/2024 7:00 PM EST) FECAL GLOBIN BY IMMUNOCHEMISTRY See Note [facility] Comment: FECAL GLOBIN BY IMMUNOCHEMISTRY Micro Number: [id number] Test Status: Final Specimen Source: Insure (tm) fobt test card Specimen Quality: Adequate Fecal Globin: Not Detected Stool Stool specimen / Unknown 05/10/2024 7:00 PM EST 05/14/2024 7:37 AM EST Dmitri Arzola MD LAB BODY FLUIDS AND STOOLS [facility] Final Result Performing Organization Address [facility] Co de Phone Number [facility] [address] [address], [facility] [address] [address] * HEPATITIS A,B,C PANEL (05/08/2019 9:55 AM EST) HEPATITIS B SURFACE ANTIBODY NEGATIVE NEGATIVE [facility] HEPATITIS B SURFACE ANTIGEN NEGATIVE NEGATIVE [facility] Comment: Over the counter supplements containing high doses of biotin may interfere with this assay. If interference is suspected, patients shoud be retested after refraining from biotin supplements for 72 hours. HEPATITIS C VIRUS DIAGNOSTIC NEGATIVE NEGATIVE [facility] HEPATITIS A ANTIBODY TOTAL NEGATIVE NEGATIVE [facility] Comment: Over the counter supplements containing high doses of biotin may interfere with this assay. If interference is suspected, patients shoud be retested after refraining from biotin supplements for 72 hours. HEPATITIS B CORE ANTIBODY NEGATIVE NEGATIVE [facility] Blood specimen (specimen) Blood / Unknown 05/08/2019 9:55 AM EST 05/08/2019 10:21 AM EST Narrative [facility] - 05/08/2019 1:59 PM EST [employer], a member of [address] [address] Web Programmer - Roslyn Live MD PT ID [id number] ORD# [id number] [facility] - BLOOD DRAW Edited Res ult - Final [facility] [employer] [address], [place] [phone] * HIV-1 & HIV-2 ANTIBODIES (05/08/2019 9:55 AM EST) HIV 1 AND 2 ANTIBODY SCREEN NONREACTIVE NONREACTIVE [facility] Comment: HIV testing performed at reference lab due to reagent backorder. Test performed at: [place] [address] Juan Carlos Martinez MD- Web Programmer Blood specimen (specimen) Blood / Unknown 05/08/2019 9:55 AM EST 05/08/2019 10:21 AM EST Narrative [facility] - 05/13/2019 2:51 PM EST [employer], a member of [address] [address] Web Programmer - Roslyn Live MD PT ID [id number] ORD# [id number] [facility] - BLOOD DRAW Final Resu lt Performing Organization Address City/[facility]/ZIP Co de Phone Number [facility] [employer] [address], [place] [phone] from Last 3 Months or Most Recently Relevant to Health Maintenance Insurance [id number] Care Teams Fiberglass Roller Relationship Specialty Start Date End Date Dmitri Arzola MD [address] [place] [address] PCP - General Internal Medicine 05/05/19
--- NOTE | 2025-01-02 15:09 | PC.NURSE ---
Addendum entered by Dee Dee Boswell RN 01/02/25 15:11: Patient is a 58 yo male who presents with chest/head vibrations with assoc sob. Denies any pain. Placed on the registered nurse cardiac telemetry and NSR with frequent PVC's and couplets. Noted to be hypertensive and states ran out of his atenolol approximately one week ago. Lungs clear bilat. Respirations even and non-labored. Abdomen soft, non-tender with positive bowel sounds. Positive pedal pulses with no edema. Patients states not receiving dialysis anymore Original Note: Medical History Hypertension RAMONITA (acute kidney injury) Uncontrolled hypertension ESRD needing dialysis HLD (hyperlipidemia) Non-insulin dependent type 2 diabetes mellitus Asthma
[2025-01-02 15:10] LABS: MANUAL DIFF FLAG NO
[2025-01-02 15:18] LABS: Hematocrit 35.5 % (42.0-52.0); Hemoglobin 12.2 g/dl (14.0-18.0); Imm Gran Abs Auto 0.01 X10*3/uL (0.00-0.03); Imm Gran Pct Auto 0.2 % (0.0-0.4); Lymphocytes Absolute Auto 2.4 X10*3/uL (1.2-4.9); Mean Corpuscular HGB Conc 34.4 g/dl (31.0-36.0); Mean Corpuscular Hemoglobin 28.8 pg (27.0-33.0); Mean Corpuscular Volume 83.9 fL (80.0-98.0); NRBC Abs Auto 0.000 X10*3/uL (0.0-0.012); NRBC Pct Auto 0.0 /100WBC (0.0-0.2); Platelet Count 255 X10*3/uL (160-400); Red Blood Count 4.23 X10*6/uL (4.60-5.80); White Blood Count 6.2 X10*3/uL (4.8-10.8)
[2025-01-02 15:25] LABS: Alanine Aminotransferase 29 U/L (0-40); Albumin Level 4.3 g/dL (3.5-5.0); Alkaline Phosphatase 88 U/L (39-117); Anion Gap 14 (12-20); Aspartate Amino Transferase 18 U/L (5-37); Blood Urea Nitrogen 25 mg/dL (9-16); Calcium 8.9 mg/dL (8.4-10.2); Carbon Dioxide 24 mmol/L (22-29); Chloride 106 mmol/L (96-108); Creatinine Clr Calc Pharmacy 29.8; Estimated Glomerular Filt Rate 24; Lipase 44 U/L (8-78); Magnesium 2.0 mg/dL (1.6-2.6); Potassium 3.8 mmol/L (3.3-5.1); Sodium 140 mmol/L (135-145); Total Protein 7.1 g/dL (6.5-8.0)
[2025-01-02 15:33] LABS: Troponin-I High Sensitivity 16.9 ng/L (<3.5-35.0)
[2025-01-02 18:00] LABS: Troponin-I High Sensitivity 19.0 ng/L (<3.5-35.0)
[2025-01-02 19:37] LABS: Appearance Urine Clear; Glucose Urine UA Negative (Negative); PH 7.0 (5.0-9.0); Specific Gravity - Urine 1.015 (1.005-1.025); UMIC TRIGGER UACC YES
== END 2025-01-02 21:53 | disposition home or self-care (01) ==
PROVIDERS: Physician Assistant Medical; Emergency Provider Emergency Medicine; PCP Internal Medicine
DX: R07.9 Chest pain, unspecified (principal); R51.9 Headache, unspecified; I12.0 Hypertensive chronic kidney disease with stage 5 chronic kidney disease or end stage renal disease; E11.22 Type 2 diabetes mellitus with diabetic chronic kidney disease; N18.6 End stage renal disease; Z86.79 Personal history of other diseases of the circulatory system; Z79.899 Other long term (current) drug therapy
CPT/HCPCS: 36415; 70450; 71046; 80053; 81001; 83690; 83735; 84484; 85025; 93005; 99283; 99284; 99285

== ENCOUNTER → 2025-01-02 14:31 | Outpatient (BNV) | payer MEDICAID, SELFPAY | PROVIDERS: Emergency Provider Emergency Medicine; PCP Internal Medicine; Visit Provider Internal Medicine Cardiovascular Disease | DX: I49.3 Ventricular premature depolarization (principal); I51.7 Cardiomegaly; I45.81 Long QT syndrome | CPT/HCPCS: 93010 ==

== ENCOUNTER → 2025-01-02 14:44 | Outpatient (BNV) | payer MEDICAID, SELFPAY | PROVIDERS: PCP Internal Medicine; Visit Provider Radiology Diagnostic Radiology | DX: R51.9 Headache, unspecified (principal); I10 Essential (primary) hypertension | CPT/HCPCS: 70450; 71046 ==

== ENCOUNTER 2025-01-04 08:00 | Outpatient (REF) | payer MEDICAID, SELFPAY ==
--- OUTSIDE RECORDS SUMMARY | 2025-01-04 08:06 | XMS_ITS | Clinical Summary ---
Author Organization [facility] Address [address] [facility] 7 [place] [address] Care Team Providers Care Energy Control Officer Name Role Phone Unavailable Primary Care Provider Unavailabl e Encounters Date Type Department Care Team Description 11/17/2024 Population Health Risk Score [facility] (C3) Department [address] [facility] [address] [place] [id number] Provider, Population Health Generic from Last 3 [...]
--- OUTSIDE RECORDS SUMMARY | 2025-01-04 08:07 | XMS_ITS | Clinical Summary ---
Author Organization [facility] Address [address] [place] [address] Care Team Providers Care Test Administrator Name Role Phone Dmitri Arzola MD [...] dsdvIndications:M oderate persistent asthma with acute exacerbation ([facility]) INHALE 1 PUFF BY MOUTH EVERY DAY 60 Each 3 022 Active aspirin 81 mg chewable tablet Take 81 mg by mouth once daily 023 Active blood-glucose meter monitoring kitIndications:Ty pe 2 diabetes mellitus without complication, without long-term current use of insulin ([facility]) Pt is Diabetic . E11.9 1 Each 024 Active alcohol swabsIndications: Type 2 diabetes mellitus without complication, without long-term current use of insulin ([facility]) Pt is Diabetic . E11.9 once a day 100 Each 1 025 Active blood sugar diagnostic (FREESTYLE TEST) stripsIndications :Type 2 diabetes mellitus without complication, without long-term current use of insulin ([facility]) USE TO TEST ONCE A [...] to occlusion of left anterior cerebral artery ([facility]),Mixed hyperlipidemia TAKE 1 TABLET BY MOUTH EVERY DAY 90 Tablet 1 025 Active omeprazole (PRILOSEC) [address] capsuleIndication s:Gastroesophagea l reflux disease without esophagitis TAKE 1 CAPSULE BY MOUTH EVERY DAY IN THE MORNING BEFORE BREAKFAST 90 Capsule 2 025 Active metFORMIN (GLUCOPHAGE) 500 mg tabletIndications :Controlled type 2 diabetes mellitus without complication, without long-term current use of insulin ([facility]) TAKE 1 TABLET BY MOUTH TWICE A DAY WITH FOOD 180 Tablet 025 Active ELIQUIS 5 mg tabIndications:Ar m DVT (deep venous thromboembolism), acute, right ([facility]) TAKE 1 TABLET BY MOUTH TWICE A DAY 60 Tablet 1 025 Active atenoloL (TENORMIN) 50 mg tabletIndications :Primary hypertension TAKE 1 TABLET BY MOUTH EVERY DAY 90 Tablet 025 Active lancets (FREESTYLE LANCETS) 28 gaugeIndications: Type 2 diabetes mellitus without complication, without long-term current use of insulin ([facility]) CHECK ONCE A DAY 100 Each 1 025 Active lancets (FREESTYLE LANCETS) 28 gaugeIndications: Type 2 diabetes mellitus without complication, without long-term current use of insulin ([facility]) Pt is Diabetic . E11.9 check once a day 100 Each 1 025 2024 Discontinued ELIQUIS 5 mg tabIndications:Ar m DVT (deep venous thromboembolism), acute, right ([facility]) TAKE 1 TABLET BY MOUTH TWICE A DAY 60 Tablet 1 025 2024 Discontinued atenoloL (TENORMIN) 50 mg tabletIndications :Primary hypertension TAKE 1 TABLET BY MOUTH EVERY DAY 90 Tablet 025 2024 Discontinued Active Problems Problem Noted Date Diagnosed Date Arm DVT (deep venous thrombo embolism), acute, right ([facility]) 06/16/2024 Overview (06/16/2024): [facility] 06/09/2024 Admitted for Right sided neck pain and swelling . Sent to Er by Senior Control Systems Engineer for concern of DVT Right Internal Jugular vein . Right IJ Perm Cath removed. Venous Duplex showed positive for DVT Right IJ Vein . Started on Eliquis 10 mg po bid for 7 days then 5 mg po bid Food insecurity 04/16/2024 Financial difficulties 04/16/2024 Cerebrovascular accident (CV A) due to occlusion of left anterior cerebral artery ([facility]) 09/26/2022 Overview (09/26/2022): Admitted [facility]- Admitted 09/21/22 and Woke up in [...] melly, without long-term current use of insulin ([facility]) 01/04/2015 Lump 10/28/2014 Overview (10/28/2014): R foot [facility] 09/2014: negative Mild intermittent asthma ([facility]) 09/28/2014 Overview (09/28/2014): Since childhood Gastroesophageal reflux [...] Care Team Description 11/05/2024 Results Follow-Up [address] [address] Cintia Zambrano FNP 11/04/2024 11:00 AM EDT Office Visit [address] [address] Cintia Zambrano FNP from Last 3 Months [...] Pf, Maximiliano-sucrose, 30 Mcg/0.3 Ml, 12yr+ 04/11/2023 [employer] COVID-19 Vac cine Bivalent, ([facility] COVID-19 VACCINE BIVALENT, ([facility] CAP 09/28/2022 TDAP [...] 09/28/2022, 10/04/2016 Imm-Hepatitis B Completed 04/11/2023, 09/28/2022 [id number] Completed 01/08/2024, 03/29, 09/28/2022, Additional history exists [...] complication, without long-term current use of insulin ([facility]) TSH W/RFLX FREE T4 Routine 11/04/2024 11 [...] complication, without long-term current use of insulin ([facility]) REFERRAL SCANNED DOCUMENT 10/26/2024 3:00 AM EDT IMAGING SCANNED DOCUMENT 10/20/2024 3:00 AM EDT IMAGING SCANNED DOCUMENT 10/20/2024 3:00 AM EDT MICROALBUMIN/CREATININ E RATIO, URINE, RANDOM Routine 05/12/2024 8:40 AM EST Type 2 diabetes mellitus without complication, without long-term current use of insulin ([facility]) FECAL GLOBIN BY IMMUNOCHEMISTRY (FIT) Routine [...] EDT) 11/19/2024 3:00 AM EDT us [facility] Cyndi l Result * (ABNORMAL) HGA1C W/EAG Routine (11/04/2024 11:16 AM EDT) HEMOGLOBIN A1C 7.2(H) <5.7 % [facility] Comment: For someone without known diabetes, a [...] diabetes for children. EAG (MG/DL) 160 mg/dL [facility] EAG (MMOL/L) 8.9 mmol/L [facility] Blood Blood / Unknown 11/04/2024 1 1:16 AM EDT 11/04/2024 11:17 AM EDT Narrative [employer] - 11/05/2024 9:27 AM EDT FASTING:YES COLLECTION KIT GIVEN TO PATIENT. PATIENT ADVISED TO RETURN. [facility] - BLOOD DRAW Rajiv doug Result - Final [employer] [address] [place] [address], [employer] [facility] [address] [address] * TSH W/RFLX FREE T4 Routine (11/04/2024 11:16 AM EDT) TSH W/REFLEX TO FT4 1.28 0.40 - 4.50 mIU/L [facility] Blood Blood / Unknown 11/04/2024 1 1:16 AM EDT 11/04/2024 11:17 AM EDT Narrative [employer] - 11/05/2024 9:27 AM EDT FASTING:YES COLLECTION KIT GIVEN TO PATIENT. PATIENT ADVISED TO RETURN. us Cintia [facility] - BLOOD DRAW Rajiv doug Result - Final [employer] [address] [address], [facility] [address] [place] [address] * (ABNORMAL) LIPIDS W RFLX TO DIRECT LDL Routine (11/04/2024 11:16 AM EDT) CHOLESTEROL, TOTAL 170 <200 mg/dL [employer] [facility] HDL CHOLESTEROL 36(L) > OR = 40 mg/dL [facility] TRIGLYCERIDES 331(H) <150 mg/dL [facility] Comment: If a non-fasting specimen was collected, consider repeat triglyceride testing on a fasting specimen if clinically indicated. Joel et al. J. of Clin. Lipidol. 2015;9:129-169. LDL-CHOLESTEROL 90 99 mg/dL (calc) [facility] Comment: Reference range: <100 Desirable range <100 mg/dL for primary prevention; <70 mg/dL for patients with CHD or diabetic patients with > or = 2 CHD risk factors. LDL-C is now calculated using the Nick-Juan calculation, which is a validated novel method providing better accuracy than the Friedewald equation in the estimation of LDL-C. Nick SS et al. RONALD. 2013;310(19): 0737-4366 (http://education.GrandCentral/faq/WNN782) CHOL/HDLC RATIO 4.7 <5.0 (calc) [employer] [facility] [facility] NON-HDL CHOLESTEROL 134(H) <130 mg/dL (calc) [facility] Comment: For patients with diabetes plus 1 major ASCVD risk factor, treating to a non-HDL-C goal of <100 mg/dL (LDL-C of <70 mg/dL) is considered a therapeutic option. Blood Blood / Unknown 11/04/2024 1 1:16 AM EDT 11/04/2024 11:17 AM EDT Narrative [employer] [facility] - 11/05/2024 9:27 AM EDT FASTING:YES COLLECTION KIT GIVEN TO PATIENT. PATIENT ADVISED TO RETURN. Cintia Zambrano [facility] - BLOOD DRAW Fin al Result [employer] [address] [address], [employer] [facility] [address] [place] [address] * BLOOD COUNT COMPLETE AUTO&AUTO DIFRNTL WBC Routine (11/04/2024 11:16 AM EDT) Pathologist [facility] WHITE BLOOD CELL COUNT 5.9 3.8 - 10.8 Thousand/ uL [facility] RED BLOOD CELL COUNT 4.89 4.20 - 5.80 Million/u L [facility] HEMOGLOBIN 13.6 13.2 - 17.1 g/dL [facility] HEMATOCRIT 42.0 38.5 - 50.0 % [facility] MCV 85.9 80.0 - 100.0 fL [facility] MCH 27.8 27.0 - 33.0 pg [facility] MCHC 32.4 32.0 - 36.0 g/dL [facility] Comment: For adults, a slight decrease in the calculated MCHC value (in the range of 30 to 32 g/dL) is most likely not clinically significant; however, it should be interpreted with caution in correlation with other red cell parameters and the patient's clinical condition. RDW 13.7 11.0 - 15.0 % [facility] PLATELET COUNT 287 140 - 400 Thousand/ uL [facility] MPV 9.5 7.5 - 12.5 fL [facility] ABSOLUTE NEUTROPHILS 2,407 1,500 - 7,800 cells/uL [facility] ABSOLUTE LYMPHOCYTES 2,921 850 - 3,900 cells/uL [facility] ABSOLUTE MONOCYTES 419 200 - 950 cells/uL [facility] ABSOLUTE EOSINOPHILS 112 15 - 500 cells/uL [facility] ABSOLUTE BASOPHILS 41 0 - 200 cells/uL [facility] NEUTROPHILS PCT 40.8 % QUES T [facility] LYMPHOCYTES 49.5 % [facility] MONOCYTES 7.1 % [facility] EOSINOPHILS 1.9 % [facility] BASOPHILS 0.7 % [facility] Blood Blood / Unknown 11/04/2024 1 1:16 AM EDT 11/04/2024 11:17 AM EDT Narrative [employer] [facility] - 11/05/2024 9:27 AM EDT FASTING:YES COLLECTION KIT GIVEN TO PATIENT. PATIENT ADVISED TO RETURN. Cintia Zambrano [facility] LAB - BLOOD DRAW Rajiv doug Result - Final [facility] [address] [address], [facility] [address] [place] [address] * (ABNORMAL) COMPREHENSIVE METABOLIC PANEL Routine (11/04/2024 11:16 AM EDT) GLUCOSE 115(H) 65 - 99 mg/dL [facility] Comment: Fasting reference interval For someone without known diabetes, a glucose value between 100 and 125 mg/dL is consistent with prediabetes and should be confirmed with a follow-up test. UREA NITROGEN (BUN) 23 7 - 25 mg/dL [facility] CREATININE (blood) 2.37(H) 0.70 - 1.30 mg/dL [facility] EGFR 31(L) > OR = 60 mL/min/1. 73m2 [facility] BUN/CREATININE RATIO 10 6 - 22 (calc) [facility] SODIUM 136 135 - 146 mmol/L [facility] POTASSIUM 4.0 3.5 - 5.3 mmol/L [facility] CHLORIDE 104 98 - 110 mmol/L [facility] CARBON DIOXIDE 23 20 - 32 mmol/L [facility] CALCIUM 8.9 8.6 - 10.3 mg/dL [facility] PROTEIN, TOTAL 6.9 6.1 - 8.1 g/dL [facility] ALBUMIN 4.2 3.6 - 5.1 g/dL [facility] GLOBULIN 2.7 1.9 - 3.7 g/dL (calc) [facility] ALBUMIN/GLOBULI N RATIO 1.6 1.0 - 2.5 (calc) [facility] BILIRUBIN, TOTAL 0.3 0.2 - 1.2 mg/dL [facility] ALKALINE PHOSPHATASE 84 35 - 144 U/L [facility] AST 22 10 - 35 U/L [facility] ALT 40 9 - 46 U/L [facility] Blood Blood / Unknown 11/04/2024 1 1:16 AM EDT 11/04/2024 11:17 AM EDT Narrative [facility] - 11/05/2024 9:27 AM EDT FASTING:YES COLLECTION KIT GIVEN TO PATIENT. PATIENT ADVISED TO RETURN. Cintia Zambrano PH[facility] INSPECT[facility] LAB - BLOOD DRAW Fin al Result [facility] [address] [address], [place] [employer] [address] [address] * IMAGING SCANNED DOCUMENT (10/20/2024 3:00 AM EDT) Only the most recent of2 resultswithin the time period is included. 10/20/2024 3:00 AM EDT us Dmitri Arzola MD SCAN IMAGING Final Result * MICROALBUMIN/CREATININE RATIO, URINE, RANDOM (05/12/2024 8:40 AM EST) CREATININE, RANDOM URINE 125 20 - 320 mg/dL [facility] MICROALBUMIN 1.3 mg/dL [facility] IAG[facility]-Zassi [facility] Comment: Reference Range Not established MICROALBUMIN/CREA TININE RATIO, RANDOM URINE 10 <30 mg/g creat [facility] Comment: The ADA defines abnormalities [...] AM EST 05/12/2024 8:40 AM EST Narrative [facility] - 05/14/2024 6:43 PM EST SPLIT 02/03/2024 FROM [id number] us Dmitri Arzola MD LAB URINE AMBULATORY Final Resu lt Performing Organization Address [facility]/ZIP Co de Phone Number [facility] [address] [address], [facility] [address] [address] * FECAL GLOBIN BY IMMUNOCHEMISTRY (FIT) (05/10/2024 7:00 PM EST) FECAL GLOBIN BY IMMUNOCHEMISTRY See Note [facility] Comment: FECAL GLOBIN BY IMMUNOCHEMISTRY Micro Number: [id number] Test Status: Final Specimen Source: Insure (tm) fobt test card Specimen Quality: Adequate Fecal Globin: Not Detected Stool Stool specimen / Unknown 05/10/2024 7:00 PM EST 05/14/2024 7:37 AM EST Dmitri Arzola MD LAB BODY FLUIDS AND STOOLS [facility] Final Result Performing Organization Address [facility] Co de Phone Number [facility] [address] [address], [facility] [address] [address] * HEPATITIS A,B,C PANEL (05/08/2019 9:55 AM EST) HEPATITIS B SURFACE ANTIBODY NEGATIVE NEGATIVE [facility] HEPATITIS B SURFACE ANTIGEN NEGATIVE NEGATIVE [facility] Comment: Over the counter supplements containing high doses of biotin may interfere with this assay. If interference is suspected, patients shoud be retested after refraining from biotin supplements for 72 hours. HEPATITIS C VIRUS DIAGNOSTIC NEGATIVE NEGATIVE [facility] HEPATITIS A ANTIBODY TOTAL NEGATIVE NEGATIVE [facility] Comment: Over the counter supplements containing high doses of biotin may interfere with this assay. If interference is suspected, patients shoud be retested after refraining from biotin supplements for 72 hours. HEPATITIS B CORE ANTIBODY NEGATIVE NEGATIVE [facility] Blood specimen (specimen) Blood / Unknown 05/08/2019 9:55 AM EST 05/08/2019 10:21 AM EST Narrative [facility] - 05/08/2019 1:59 PM EST [employer], a member of [address] [address] Internet Sales Director - Roslyn Live MD PT ID [id number] ORD# [id number] [facility] - BLOOD DRAW Edited Res ult - Final [facility] [employer] [address], [place] [phone] * HIV-1 & HIV-2 ANTIBODIES (05/08/2019 9:55 AM EST) HIV 1 AND 2 ANTIBODY SCREEN NONREACTIVE NONREACTIVE [facility] Comment: HIV testing performed at reference lab due to reagent backorder. Test performed at: [place] [address] Juan Carlos Martinez MD- Internet Sales Director Blood specimen (specimen) Blood / Unknown 05/08/2019 9:55 AM EST 05/08/2019 10:21 AM EST Narrative [facility] - 05/13/2019 2:51 PM EST [employer], a member of [address] [address] Internet Sales Director - Roslyn Live MD PT ID [id number] ORD# [id number] [facility] - BLOOD DRAW Final Resu lt Performing Organization Address City/[facility]/ZIP Co de Phone Number [facility] [employer] [address], [place] [phone] from Last 3 Months or Most Recently Relevant to Health Maintenance Insurance [id number] Care Teams Test Administrator Relationship Specialty Start Date End Date Dmitri Arzola MD [address] [place] [address] PCP - General Internal Medicine 05/05/19
[2025-01-04 09:47] LABS: PSA,Total (Free>4and<10) 1.01 ng/mL (0.00-4.00)
== END 2025-01-04 08:01 | disposition home or self-care (01) ==
LOC: HO.LAB 08:00
PROVIDERS: PCP Internal Medicine; Visit Provider Urology
DX: Z12.5 Encounter for screening for malignant neoplasm of prostate (principal); N40.1 Benign prostatic hyperplasia with lower urinary tract symptoms; R35.1 Nocturia; Z79.899 Other long term (current) drug therapy
CPT/HCPCS: 36415; 81003; 84153; 99212

== ENCOUNTER 2025-01-04 14:50 | Outpatient (AMB) | payer MEDICAID, SELFPAY ==
--- NOTE | 2025-01-04 15:30 | A.OFFVIS_ITS ---
Intake Visit Reasons: 10w/Labs Intake Note: Patient presents today for 10w/labs * 12/30 BUN:31/Creatinine 2.56 * 01/04 PSA: 1.01 Urology Medication:None Blood Thinner:Apixaban Antibiotic Allergies:None Allergies lisinopril Allergy (Verified 01/04/25 15:31) Facial Swelling Medication List - Last Reconciled 01/04/25 by Gem Rojas MD amlodipine 10 mg See Protocol PO DAILY apixaban (Eliquis) 5 mg PO BID atenolol 75 mg (1.5 x 50 mg) PO Q24H 30 days atenolol 50 mg PO DAILY atorvastatin 80 mg PO DAILY hydralazine 25 mg PO TID 30 days metformin 500 mg PO BID multivitamin 1 tab PO DAILY omeprazole 40 mg PO DAILY@0630 umeclidinium-vilanterol 62.5-25 mcg/actuation (Anoro Ellipta) 1 inh inhalation DAILY HPI Comments Details: 01/04/25--59-year-old male presenting for follow-up PSA screening. He denies significant lower urinary tract symptoms. Increased fluid intake in the evening is noted as a contributing factor to nocturnal urination. Denies issues with erections. Follow-up today review labs ---the patient is followed by nephrology for chronic kidney disease. Urinalysis 3+ protein Results: PSA screening 01/04/25--1.01 BUN/creatinine---31/2.56 Plan follow-up telehealth continue PSA screening 10/26/24--FU bladder US-completed 10/20/24--Prostate volume estimated at 14 mL. LV--09/18/24--The patient is a 59-year-old male presenting for evaluation of Benign Prostatic Hyperplasia (BPH) and obstructive urinary symptoms. He experiences nocturia and occasional incomplete bladder emptying but maintains generally good urinary flow. Increased fluid intake in the evening is noted as a contributing factor to nocturnal urination. Recent imaging via CT scan showed no kidney stones, and the patient reports no history of urinary tract infections. Family history is negative for prostate cancer, but his father had colon cancer for which the patient has had screenings. No recent PSA test was done. Symptoms are described as manageable and correlate with lifestyle adjustments. Urinary Symptoms Review - Increased frequency of urination at night, increased fluid intake in the e vening may be contributory. - Overall good urinary flow. - Sense of incomplete bladder emptying. - No reported pain or pressure during urination. - No presence of kidney stones per recent CT scan. Results - CT scan (08/07/24): No kidney stones, no abnormalities in kidneys noted. [facility] Medical History Hypertension RAMONITA (acute kidney injury) Uncontrolled hypertension ESRD needing dialysis HLD (hyperlipidemia) Non-insulin dependent type 2 diabetes mellitus Asthma Social History Household Members: Family Housing: Apartment Do you presently have visiting nurse or other home services: No Alcohol intake: former Patient Tobacco Use Status: Current someday Tobacco user Tobacco use type: Cigarette Cigarette Packs Per Day: 1 Cigarettes Per Day: 9 e-Cigarette/Vaping Use: Never Used Second Hand Smoke Exposure: No service: No Current occupational status: employed Review of Systems Const All systems reviewed & are unremarkable except as noted in HPI and below Reports no additional complaints Eyes Reports no additional complaints ENT Reports no additional complaints Card Reports no additional complaints Resp Reports no additional complaints GI Reports no additional complaints Reports as per HPI Musc Reports no additional complaints Skin/Breast Reports system reviewed and no additional complaints, except as documented Neuro Reports no additional complaints Psych Reports no additional complaints Endo Reports no additional complaints Deuce/Lymph Reports no additional complaints Aller/Immun Reports no additional complaints Assessment & Plan Assessment & Plan (1) Screening PSA (prostate specific antigen): Code(s): Z12.5 - Encounter for screening for malignant neoplasm of prostate Category: Medical (2) Nocturia more than twice per night: Code(s): R35.1 - Nocturia Category: Medical Plan Telehealth 1 year PSA screening Orders: Orders PSA,Total (Free>4and<10) 11 Months Z12.5 - Encounter for screening for malignant neoplasm of prostate Patient Instructions: The patient had an opportunity to ask questions regarding treatment plan. The patient expressed understanding and agreement with the above treatment plan. The patient is aware they should contact our office by phone for worsening of their current condition or the appearance of new symptoms. Compliance is encouraged with any medications and followup testing that is ordered. It is a privilege to be allowed the opportunity to participate in the urologic care of your patient. If you have any questions or concerns regarding treatment for the above conditions please do not hesitate to contact me. The office telephone contact is [phone]. This note is constructed in part using voice recognition software. While every effort has been made to ensure accuracy extrusion bender errors may have been included. Yours sincerely, Gem Rojas MD Coding Level of Care Code Est Pt Level 3 (58976) Diagnoses Screening PSA (prostate specific antigen) Z12.5 Nocturia more than twice per night R35.1
--- OUTSIDE RECORDS SUMMARY | 2025-01-04 18:06 | XMS_ITS | Clinical Summary ---
Author Organization [facility] Address [address] [place] [address] Care Team Providers Care Vacuum Drier Operator Name Role Phone Dmitri Arzola MD Primary [...] dsdvIndications:M oderate persistent asthma with acute exacerbation ([facility]) INHALE 1 PUFF BY MOUTH EVERY DAY 60 Each 3 022 Active aspirin 81 mg chewable tablet Take 81 mg by mouth once daily 023 Active blood-glucose meter monitoring kitIndications:Ty pe 2 diabetes mellitus without complication, without long-term current use of insulin ([facility]) Pt is Diabetic . E11.9 1 Each 024 Active alcohol swabsIndications: Type 2 diabetes mellitus without complication, without long-term current use of insulin ([facility]) Pt is Diabetic . E11.9 once a day 100 Each 1 025 Active blood sugar diagnostic (FREESTYLE TEST) stripsIndications :Type 2 diabetes mellitus without complication, without long-term current use of insulin ([facility]) USE TO TEST ONCE A DAY [...] to occlusion of left anterior cerebral artery ([facility]),Mixed hyperlipidemia TAKE 1 TABLET BY MOUTH EVERY DAY 90 Tablet 1 025 Active omeprazole (PRILOSEC) [address] capsuleIndication s:Gastroesophagea l reflux disease without esophagitis TAKE 1 CAPSULE BY MOUTH EVERY DAY IN THE MORNING BEFORE BREAKFAST 90 Capsule 2 025 Active metFORMIN (GLUCOPHAGE) 500 mg tabletIndications :Controlled type 2 diabetes mellitus without complication, without long-term current use of insulin ([facility]) TAKE 1 TABLET BY MOUTH TWICE A DAY WITH FOOD 180 Tablet 025 Active ELIQUIS 5 mg tabIndications:Ar m DVT (deep venous thromboembolism), acute, right ([facility]) TAKE 1 TABLET BY MOUTH TWICE A DAY 60 Tablet 1 025 Active atenoloL (TENORMIN) 50 mg tabletIndications :Primary hypertension TAKE 1 TABLET BY MOUTH EVERY DAY 90 Tablet 025 Active lancets (FREESTYLE LANCETS) 28 gaugeIndications: Type 2 diabetes mellitus without complication, without long-term current use of insulin ([facility]) CHECK ONCE A DAY 100 Each 1 025 Active lancets (FREESTYLE LANCETS) 28 gaugeIndications: Type 2 diabetes mellitus without complication, without long-term current use of insulin ([facility]) Pt is Diabetic . E11.9 check once a day 100 Each 1 025 2024 Discontinued ELIQUIS 5 mg tabIndications:Ar m DVT (deep venous thromboembolism), acute, right ([facility]) TAKE 1 TABLET BY MOUTH TWICE A DAY 60 Tablet 1 025 2024 Discontinued atenoloL (TENORMIN) 50 mg tabletIndications :Primary hypertension TAKE 1 TABLET BY MOUTH EVERY DAY 90 Tablet 025 2024 Discontinued Active Problems Problem Noted Date Diagnosed Date Arm DVT (deep venous thrombo embolism), acute, right ([facility]) 06/16/2024 Overview (06/16/2024): [facility] 06/09/2024 Admitted for Right sided neck pain and swelling . Sent to Er by Lsw for concern of DVT Right Internal Jugular vein . Right IJ Perm Cath removed. Venous Duplex showed positive for DVT Right IJ Vein . Started on Eliquis 10 mg po bid for 7 days then 5 mg po bid Food insecurity 04/16/2024 Financial difficulties 04/16/2024 Cerebrovascular accident (CV A) due to occlusion of left anterior cerebral artery ([facility]) 09/26/2022 Overview (09/26/2022): Admitted [facility]- Admitted 09/21/22 and Woke up in middle [...] melly, without long-term current use of insulin ([facility]) 01/04/2015 Lump 10/28/2014 Overview (10/28/2014): R foot [facility] 09/2014: negative Mild intermittent asthma ([facility]) 09/28/2014 Overview (09/28/2014): Since childhood Gastroesophageal [...] Department Care Team Description 11/05/2024 Results Follow-Up [address] [address] Cintia Zambrano FNP 11/04/2024 11:00 AM EDT Office Visit [address] [phone] Cintia Zambrano FNP from Last 3 Months [...] Pf, Maximiliano-sucrose, 30 Mcg/0.3 Ml, 12yr+ 04/11/2023 [employer] COVID-19 Vac cine Bivalent, (CORCORAN PFIZER-BIONTProximex COVID-19 VACCINE BIVALENT, (CORCORAN CAP 09/28/2022 TDAP [...] 09/28/2022, 10/04/2016 Imm-Hepatitis B Completed 04/11/2023, 09/28/2022 [id number] Completed 01/08/2024, 03/29, 09/28/2022, Additional history exists [...] complication, without long-term current use of insulin ([facility]) TSH W/RFLX FREE T4 Routine 11/04/2024 [...] complication, without long-term current use of insulin ([facility]) REFERRAL SCANNED DOCUMENT 10/26/2024 3:00 AM EDT IMAGING SCANNED DOCUMENT 10/20/2024 3:00 AM EDT IMAGING SCANNED DOCUMENT 10/20/2024 3:00 AM EDT MICROALBUMIN/CREATININ E RATIO, URINE, RANDOM Routine 05/12/2024 8:40 AM EST Type 2 diabetes mellitus without complication, without long-term current use of insulin ([facility] FECAL GLOBIN BY IMMUNOCHEMISTRY (FIT) Routine 05/10/2024 [...] EDT) 11/19/2024 3:00 AM EDT [facility] Cyndi l Result * (ABNORMAL) HGA1C W/EAG Routine (11/04/2024 11:16 AM EDT) HEMOGLOBIN A1C 7.2(H) <5.7 % [facility] Comment: For someone without known diabetes, a [...] diabetes for children. EAG (MG/DL) 160 mg/dL [facility] EAG (MMOL/L) 8.9 mmol/L [facility] Blood Blood / Unknown 11/04/2024 1 1:16 AM EDT 11/04/2024 11:17 AM EDT Narrative [facility] - 11/05/2024 9:27 AM EDT FASTING:YES COLLECTION KIT GIVEN TO PATIENT. PATIENT ADVISED TO RETURN. [facility] - BLOOD DRAW Rajiv doug Result - Final [facility] [address] [place] [address], [facility] [address] [address] * TSH W/RFLX FREE T4 Routine (11/04/2024 11:16 AM EDT) TSH W/REFLEX TO FT4 1.28 0.40 - 4.50 mIU/L [facility] Blood Blood / Unknown 11/04/2024 1 1:16 AM EDT 11/04/2024 11:17 AM EDT Narrative [facility] - 11/05/2024 9:27 AM EDT FASTING:YES COLLECTION KIT GIVEN TO PATIENT. PATIENT ADVISED TO RETURN. us Cintia [facility] - BLOOD DRAW Rajiv doug Result - Final [facility] [address] [address], [facility] [address] [place] [address] * (ABNORMAL) LIPIDS W RFLX TO DIRECT LDL Routine (11/04/2024 11:16 AM EDT) CHOLESTEROL, TOTAL 170 <200 mg/dL [facility] HDL CHOLESTEROL 36(L) > OR = 40 mg/dL [facility] TRIGLYCERIDES 331(H) <150 mg/dL [facility] Comment: If a non-fasting specimen was collected, consider repeat triglyceride testing on a fasting specimen if clinically indicated. Joel et al. J. of Clin. Lipidol. 2015;9:129-169. LDL-CHOLESTEROL 90 99 mg/dL (calc) [facility] Comment: Reference range: <100 Desirable range <100 mg/dL for primary prevention; <70 mg/dL for patients with CHD or diabetic patients with > or = 2 CHD risk factors. LDL-C is now calculated using the Nick-Juan calculation, which is a validated novel method providing better accuracy than the Friedewald equation in the estimation of LDL-C. Nick SS et al. RONALD. 2013;310(19): 7368-1409 (http://education.[employer]/faq/KPH050) CHOL/HDLC RATIO 4.7 <5.0 (calc) [facility] NON-HDL CHOLESTEROL 134(H) <130 mg/dL (calc) [facility] Comment: For patients with diabetes plus 1 major ASCVD risk factor, treating to a non-HDL-C goal of <100 mg/dL (LDL-C of <70 mg/dL) is considered a therapeutic option. Blood Blood / Unknown 11/04/2024 1 1:16 AM EDT 11/04/2024 11:17 AM EDT Narrative [facility] - 11/05/2024 9:27 AM EDT FASTING:YES COLLECTION KIT GIVEN TO PATIENT. PATIENT ADVISED TO RETURN. Cintia Zambrano [facility] - BLOOD DRAW Fin al Result [facility] [address] [address], [facility] [address] [place] [address] * BLOOD COUNT COMPLETE AUTO&AUTO DIFRNTL WBC Routine (11/04/2024 11:16 AM EDT) Pathologist [facility] WHITE BLOOD CELL COUNT 5.9 3.8 - 10.8 Thousand/ uL [facility] RED BLOOD CELL COUNT 4.89 4.20 - 5.80 Million/u L [facility] HEMOGLOBIN 13.6 13.2 - 17.1 g/dL [facility] HEMATOCRIT 42.0 38.5 - 50.0 % [facility] MCV 85.9 80.0 - 100.0 fL [facility] MCH 27.8 27.0 - 33.0 pg [facility] MCHC 32.4 32.0 - 36.0 g/dL [facility] Comment: For adults, a slight decrease in the calculated MCHC value (in the range of 30 to 32 g/dL) is most likely not clinically significant; however, it should be interpreted with caution in correlation with other red cell parameters and the patient's clinical condition. RDW 13.7 11.0 - 15.0 % [facility] PLATELET COUNT 287 140 - 400 Thousand/ uL [facility] MPV 9.5 7.5 - 12.5 fL [facility] ABSOLUTE NEUTROPHILS 2,407 1,500 - 7,800 cells/uL [facility] ABSOLUTE LYMPHOCYTES 2,921 850 - 3,900 cells/uL [facility] ABSOLUTE MONOCYTES 419 200 - 950 cells/uL [facility] ABSOLUTE EOSINOPHILS 112 15 - 500 cells/uL [facility] ABSOLUTE BASOPHILS 41 0 - 200 cells/uL [facility] NEUTROPHILS PCT 40.8 % [facility] [employer] LYMPHOCYTES 49.5 % [facility] MONOCYTES 7.1 % [facility] EOSINOPHILS 1.9 % [facility] [employer] BASOPHILS 0.7 % [facility] Blood Blood / Unknown 11/04/2024 1 1:16 AM EDT 11/04/2024 11:17 AM EDT Narrative [facility] - 11/05/2024 9:27 AM EDT FASTING:YES COLLECTION KIT GIVEN TO PATIENT. PATIENT ADVISED TO RETURN. Cintia Zambrano LCAC RADAR OPERATOR/NAVIGATOR LAB - BLOOD DRAW Rajiv doug Result - Final Context [facility] [address] [address], Context [facility] [address] [place] [address] * (ABNORMAL) COMPREHENSIVE METABOLIC PANEL Routine (11/04/2024 11:16 AM EDT) GLUCOSE 115(H) 65 - 99 mg/dL [facility] Comment: Fasting reference interval For someone without known diabetes, a glucose value between 100 and 125 mg/dL is consistent with prediabetes and should be confirmed with a follow-up test. UREA NITROGEN (BUN) 23 7 - 25 mg/dL [facility] CREATININE (blood) 2.37(H) 0.70 - 1.30 mg/dL Context [facility] EGFR 31(L) > OR = 60 mL/min/1. 73m2 Context [facility] BUN/CREATININE RATIO 10 6 - 22 (calc) [facility] SODIUM 136 135 - 146 mmol/L Context [facility] POTASSIUM 4.0 3.5 - 5.3 mmol/L [facility] CHLORIDE 104 98 - 110 mmol/L Context [facility] CARBON DIOXIDE 23 20 - 32 mmol/L Context [facility] CALCIUM 8.9 8.6 - 10.3 mg/dL Context [facility] PROTEIN, TOTAL 6.9 6.1 - 8.1 g/dL Context [facility] ALBUMIN 4.2 3.6 - 5.1 g/dL Context [facility] GLOBULIN 2.7 1.9 - 3.7 g/dL (calc) [facility] ALBUMIN/GLOBULI N RATIO 1.6 1.0 - 2.5 (calc) Context [facility] BILIRUBIN, TOTAL 0.3 0.2 - 1.2 mg/dL Context [facility] ALKALINE PHOSPHATASE 84 35 - 144 U/L Context [facility] AST 22 10 - 35 U/L Context [facility] ALT 40 9 - 46 U/L Context [facility] Blood Blood / Unknown 11/04/2024 1 1:16 AM EDT 11/04/2024 11:17 AM EDT Narrative [facility] - 11/05/2024 9:27 AM EDT FASTING:YES COLLECTION KIT GIVEN TO PATIENT. PATIENT ADVISED TO RETURN. Cintia Zambrano LCAC RADAR OPERATOR/NAVIGATOR LAB - BLOOD DRAW Fin al Result [facility] [address] [address], [place] [facility] [address] [address] * IMAGING SCANNED DOCUMENT (10/20/2024 3:00 AM EDT) Only the most recent of2 resultswithin the time period is included. 10/20/2024 3:00 AM EDT us Dmitri Arzola MD SCAN IMAGING Final Result * MICROALBUMIN/CREATININE RATIO, URINE, RANDOM (05/12/2024 8:40 AM EST) CREATININE, RANDOM URINE 125 20 - 320 mg/dL [facility] MICROALBUMIN 1.3 mg/dL [facility] Comment: Reference Range Not established MICROALBUMIN/CREA TININE RATIO, RANDOM URINE 10 <30 mg/g creat Context [facility] Comment: The ADA defines abnormalities in [...] AM EST 05/12/2024 8:40 AM EST Narrative [facility] [employer] - 05/14/2024 6:43 PM EST SPLIT 02/03/2024 FROM [id number] us Dmitri Arzola MD LAB URINE AMBULATORY Final Resu lt Performing Organization Address [facility]/ZIP Co de Phone Number [facility] [address] [address], [employer] [facility] [address] [address] * FECAL GLOBIN BY IMMUNOCHEMISTRY (FIT) (05/10/2024 7:00 PM EST) FECAL GLOBIN BY IMMUNOCHEMISTRY See Note Context [facility] Comment: FECAL GLOBIN BY IMMUNOCHEMISTRY Micro Number: [id number] Test Status: Final Specimen Source: Insure (tm) fobt test card Specimen Quality: Adequate Fecal Globin: Not Detected Stool Stool specimen / Unknown 05/10/2024 7:00 PM EST 05/14/2024 7:37 AM EST Dmitri Arzola MD LAB BODY FLUIDS AND STOOLS [facility] Final Result Performing Organization Address [facility] Co de Phone Number [facility] [address] [address], [employer] [facility] [address] [address] * HEPATITIS A,B,C PANEL (05/08/2019 9:55 AM EST) HEPATITIS B SURFACE ANTIBODY NEGATIVE NEGATIVE [facility] HEPATITIS B SURFACE ANTIGEN NEGATIVE NEGATIVE [facility] Comment: Over the counter supplements containing high doses of biotin may interfere with this assay. If interference is suspected, patients shoud be retested after refraining from biotin supplements for 72 hours. HEPATITIS C VIRUS DIAGNOSTIC NEGATIVE NEGATIVE [facility] HEPATITIS A ANTIBODY TOTAL NEGATIVE NEGATIVE [facility] Comment: Over the counter supplements containing high doses of biotin may interfere with this assay. If interference is suspected, patients shoud be retested after refraining from biotin supplements for 72 hours. HEPATITIS B CORE ANTIBODY NEGATIVE NEGATIVE [facility] Blood specimen (specimen) Blood / Unknown 05/08/2019 9:55 AM EST 05/08/2019 10:21 AM EST Narrative [facility] - 05/08/2019 1:59 PM EST [employer], a member of [address] [address] Human Resources Technician - Roslyn Live MD PT ID [id number] ORD# [id number] [facility] - BLOOD DRAW Edited Res ult - Final [facility] [employer] [address], [place] [phone] * HIV-1 & HIV-2 ANTIBODIES (05/08/2019 9:55 AM EST) HIV 1 AND 2 ANTIBODY SCREEN NONREACTIVE NONREACTIVE [facility] Comment: HIV testing performed at reference lab due to reagent backorder. Test performed at: [place] [address] Juan Carlos Martinez MD- Human Resources Technician Blood specimen (specimen) Blood / Unknown 05/08/2019 9:55 AM EST 05/08/2019 10:21 AM EST Narrative [facility] - 05/13/2019 2:51 PM EST [employer], a member of [address] [address] Human Resources Technician - Roslyn Live MD PT ID [id number] ORD# [id number] [facility] - BLOOD DRAW Final Resu lt Performing Organization Address City/[facility]/ZIP Co de Phone Number [facility] [address] [address], [place] [phone] from Last 3 Months or Most Recently Relevant to Health Maintenance Insurance [id number] Care Teams Vacuum Drier Operator Relationship Specialty Start Date End Date Dmitri Arzola MD [address] [place] [address] PCP - General Internal Medicine 05/05/19
--- OUTSIDE RECORDS SUMMARY | 2025-01-04 18:06 | XMS_ITS | Clinical Summary ---
Author Organization [facility] Address [address] [facility] 7 [place] [address] Care Team Providers Care Associate Professor Of Literature Name Role Phone Unavailable Primary Care Provider Unavailabl e Encounters Date Type Department Care Team Description 11/17/2024 Population Health Risk Score [facility] Care [facility] (C3) Department [address] [facility] [address] [place] [phone] Provider, Population Health Generic from Last 3 [...] topic Meningococcal Vaccine Aged Out No alvino olli eligible based on patient's age to complete this topic RSV under 20 months Aged Out No longe r eligible based on patient's age to complete this topic Rotavirus Vaccines Aged Out No longer eligible based on patient's age to complete this topic
== END 2025-01-04 16:09 | disposition home or self-care (01) ==
LOC: HO.HUSH 14:50
PROVIDERS: PCP Internal Medicine; Visit Provider Urology
DX: Z13.9 Encounter for screening, unspecified (principal)
CPT/HCPCS: 99213

== ENCOUNTER 2025-01-06 15:02 | Outpatient (AMB) | payer MEDICAID, SELFPAY ==
--- NOTE | 2025-01-06 15:06 | HO.NEPHOV_ITS ---
Vital Signs 01/06/25 15:08 Height 5 ft 10 in Weight 186 lb BMI 26.7 BP 170/100 H Blood Pressure Location Rt brachial Position Sitting Pulse 74 Pulse Source Pulse Oximeter Pulse Oximetry (%) 97 Oxygen Delivery Method Room Air Intake Visit Reasons: 3 weeks fu-Voicemail Full Grants Manager Required: No Accompanied by: Significant Other Allergies lisinopril Allergy (Verified 01/06/25 15:07) Facial Swelling HPI Comments Details: 59-year-old male with history of diabetes, hypertension who recently was admitted and treated for Acute renal failure with acute metabolic acidosis requiring acute hemodialysis which seems to be related more to ATN . He has significant improvement in his urine output and his serum creatinine steadily improved and stabilized. Permacath was placed on 06/02/24 & his last inpatient HD session on 06/03/24. He presented to ER with facial swelling and lip swelling which was thought to be angioedema from ACEI. At one of the last last office visit he had difficulty turning his neck as well as right sided neck swelling. He denied any SOB or hemoptysis. He was thought to have DVT in IJ which was confirmed by USS and his permcath was removed & had been on Elquis. He ran out of his BP medications and did not take it for a week and was seen in ER. He continues to have labile BP. He has not taken his afternoon medication today.He is seen in follow up [facility] Medical History Hypertension RAMONITA (acute kidney injury) Uncontrolled hypertension ESRD needing dialysis HLD (hyperlipidemia) Non-insulin dependent type 2 diabetes mellitus Asthma Social History Household Members: Family Housing: Apartment Do you presently have visiting nurse or other home services: No Alcohol intake: former Patient Tobacco Use Status: Current someday Tobacco user Tobacco use type: Cigarette Cigarette Packs Per Day: 1 Cigarettes Per Day: 9 e-Cigarette/Vaping Use: Never Used Second Hand Smoke Exposure: No service: No Current occupational status: employed Review of Systems Const All systems reviewed & are unremarkable except as noted in HPI and below Physical Exam Vital Signs: Last Vital Signs Pulse 74 01/06/25 15:08 BP 170/100 H 01/06/25 15:08 Pulse Ox 97 01/06/25 15:08 Oxygen Delivery Method Room Air 01/06/25 15:08 BMI result Body Mass Index 26.7 Const General: comfortable and no acute distress Orientation/consciousness: patient oriented x3 HEENT Head: Yes normocephalic Mouth: Normal oral and palatal mucosa present Eyes EOM: EOMs intact bilaterally Neck Neck: Yes supple Resp Auscultation: clear to auscultation bilaterally Cardio Jugular venous distension: no JVD Rate: regular rate GI Palpation (GI): Soft to palpation Auscultation: normal bowel sounds General: Yes no CVA tenderness Back/Spine/Pelvis Back: no CVA tenderness Skin General skin exam: no rashes or lesions noted Neuro General: patient oriented x3 and moves all extremities Extrem General: Yes no pedal edema Results Reviewed Nephrology Results: Hgb, (14.0-18.0) 12.2 g/dl L 01/02/25 WBC, (4.8-10.8) 6.2 X10*3/uL 01/02/25 Plt Count, (160-400) 255 X10*3/uL 01/02/25 Sodium, (135-145) 140 mmol/L 01/02/25 Potassium, (3.3-5.1) 3.8 mmol/L 01/02/25 Chloride, (96-108) 106 mmol/L 01/02/25 Carbon Dioxide, (22-29) 24 mmol/L 01/02/25 BUN, (9-16) 25 mg/dL H 01/02/25 Creatinine, (0.5-1.4) 2.75 mg/dL H 01/02/25 Calcium, (8.4-10.2) 8.9 mg/dL Δ 01/02/25 Urine Protein, (Neg-Trace) 300 (3+) mg/dL H 01/02/25 Renal US 05/21/24 Assessment & Plan Assessment & Plan (1) Hypertension: Code(s): I10 - Essential (primary) hypertension Category: Medical Qualifiers: Hypertension type: primary hypertension Qualified Code(s): I10 - Essential (primary) hypertension (2) CKD stage 3a, GFR 45-59 ml/min: Code(s): N18.31 - Chronic kidney disease, stage 3a Category: Medical (3) Proteinuria: Code(s): R80.9 - Proteinuria, unspecified Category: Medical Qualifiers: Proteinuria type: other Qualified Code(s): R80.8 - Other proteinuria (4) Labile blood pressure: Code(s): R09.89 - Other specified symptoms and signs involving the circulatory and respiratory systems Category: Medical Plan RAMONITA due to ATN ( S/P renal biopsy)- recovered Likely has underlying diabetic kidney disease Urine output good; Has DVT of neck- Was on Elquis- D/David No ACEI/NSAID's; 24 hour BP monitor ordered today Will be a candidate for SGLT2 i soon Labs/ F/U with me in 2 days Orders: Orders AMB 24 HR B/P Monitor PLACEMENT Today R09.89 - Other specified symptoms and signs involving the circulatory and respiratory systems Coding Level of Care Code Est Pt Level 4 (33588) Diagnoses Primary hypertension I10 Hypertension type: primary hypertension CKD stage 3a, GFR 45-59 ml/min N18.31 Other proteinuria R80.8 Proteinuria type: other Labile blood pressure R09.89
[2025-01-06 15:08] VITALS: BP 170/100; PULSE 74; O2SAT 97; BMI 26.7
--- OUTSIDE RECORDS SUMMARY | 2025-01-06 18:09 | XMS_ITS | Encounter Summary ---
Author Organization [facility] Address [address] [place] [address] Care Team Providers Care Embalmer Assistant Name Role Phone Dmitri Arzola MD Primary Care Provider Reason for Visit * Reason Comments Care Coordination Encounter Details Date Type Department Care Team ([facility] st Contact Info) Description 01/05/2025 Interim Notes [facility] [address] [place] [address] Rohan Bria [address] [place], [place] [id number] Social History Tobacco Use Types Packs/Day Years [...] AM PST documented as of this encounter Progress Notes * Bria Rohan - 01/05/2025 7:58 AM EDT Patient identified through ADT feed. Patient admitted 01/02/25 and discharged 01/02/25 from [facility]. Assigned to Lindsay GILBERT and Tana MALLORY. documented in this encounter Plan of Treatment Not on file documented as of this encounter Visit Diagnoses Not on filedocumented in this encounter Additional Health Concerns Assessment Noted Time PHQ-9 Depression Total Score: 0 07/02/19 25 10:31 AM PST A Depression follow-up plan has been documented for the patient 11/04/2024 1:35 PM PDT documented as of this encounter Care Teams Embalmer Assistant Relationship Specialty Start Date End Date Dmitri Arzola MD [address] [place] [address] PCP - General Internal Medicine 05/05/19 documented as of this encounter
--- OUTSIDE RECORDS SUMMARY | 2025-01-06 18:10 | XMS_ITS | Clinical Summary ---
Author Organization [facility] Address [address] [facility] 7 [place] [address] Care Team Providers Care Package Liner Name Role Phone Unavailable Primary Care Provider Unavailabl e Encounters Date Type Department Care Team Description 11/17/2024 Population Health Risk Score [facility] (C3) Department [address] [phone] Provider, Population Health Generic from Last 3 [...]
--- OUTSIDE RECORDS SUMMARY | 2025-01-06 18:10 | XMS_ITS | Clinical Summary ---
Author Organization [facility] Address [address] [place] [address] Care Team Providers Care Office Support Specialist Name Role Phone Dmitri Arzola MD Primary [...] dsdvIndications:M oderate persistent asthma with acute exacerbation ([facility]) INHALE 1 PUFF BY MOUTH EVERY DAY 60 Each 3 022 Active aspirin 81 mg chewable tablet Take 81 mg by mouth once daily 023 Active blood-glucose meter monitoring kitIndications:Ty pe 2 diabetes mellitus without complication, without long-term current use of insulin ([facility]) Pt is Diabetic . E11.9 1 Each 024 Active alcohol swabsIndications: Type 2 diabetes mellitus without complication, without long-term current use of insulin ([facility]) Pt is Diabetic . E11.9 once a day 100 Each 1 025 Active blood sugar diagnostic (FREESTYLE TEST) stripsIndications :Type 2 diabetes mellitus without complication, without long-term current use of insulin ([facility]) USE TO TEST ONCE A DAY 100 [...] to occlusion of left anterior cerebral artery ([facility]),Mixed hyperlipidemia TAKE 1 TABLET BY MOUTH EVERY DAY 90 Tablet 1 025 Active omeprazole (PRILOSEC) [address] capsuleIndication s:Gastroesophagea l reflux disease without esophagitis TAKE 1 CAPSULE BY MOUTH EVERY DAY IN THE MORNING BEFORE BREAKFAST 90 Capsule 2 025 Active metFORMIN (GLUCOPHAGE) 500 mg tabletIndications :Controlled type 2 diabetes mellitus without complication, without long-term current use of insulin ([facility]) TAKE 1 TABLET BY MOUTH TWICE A DAY WITH FOOD 180 Tablet 025 Active ELIQUIS 5 mg tabIndications:Ar m DVT (deep venous thromboembolism), acute, right ([facility]) TAKE 1 TABLET BY MOUTH TWICE A DAY 60 Tablet 1 025 Active atenoloL (TENORMIN) 50 mg tabletIndications :Primary hypertension TAKE 1 TABLET BY MOUTH EVERY DAY 90 Tablet 025 Active lancets (FREESTYLE LANCETS) 28 gaugeIndications: Type 2 diabetes mellitus without complication, without long-term current use of insulin ([facility]) CHECK ONCE A DAY 100 Each 1 025 Active lancets (FREESTYLE LANCETS) 28 gaugeIndications: Type 2 diabetes mellitus without complication, without long-term current use of insulin ([facility]) Pt is Diabetic . E11.9 check once a day 100 Each 1 025 2024 Discontinued ELIQUIS 5 mg tabIndications:Ar m DVT (deep venous thromboembolism), acute, right ([facility]) TAKE 1 TABLET BY MOUTH TWICE A DAY 60 Tablet 1 025 2024 Discontinued atenoloL (TENORMIN) 50 mg tabletIndications :Primary hypertension TAKE 1 TABLET BY MOUTH EVERY DAY 90 Tablet 025 2024 Discontinued Active Problems Problem Noted Date Diagnosed Date Arm DVT (deep venous thrombo embolism), acute, right ([facility]) 06/16/2024 Overview (06/16/2024): [facility] 06/09/2024 Admitted for Right sided neck pain and swelling . Sent to Er by Dress Cap Maker for concern of DVT Right Internal Jugular vein . Right IJ Perm Cath removed. Venous Duplex showed positive for DVT Right IJ Vein . Started on Eliquis 10 mg po bid for 7 days then 5 mg po bid Food insecurity 04/16/2024 Financial difficulties 04/16/2024 Cerebrovascular accident (CV A) due to occlusion of left anterior cerebral artery ([facility]) 09/26/2022 Overview (09/26/2022): Admitted [facility]- Admitted 09/21/22 and Woke up in [...] melly, without long-term current use of insulin ([facility]) 01/04/2015 Lump 10/28/2014 Overview (10/28/2014): [facility] foot [facility] 09/2014: negative Mild intermittent asthma ([facility]) 09/28/2014 Overview (09/28/2014): Since childhood Gastroesophageal reflux disease without esophagi tis 09/28/2014 Overview (12/31/2014): SMA 2014 EGD:chronic gastritis: H pylori Colonoscopy: normal, f/u in 5 yrs Right knee pain 09/28/2014 Overview (09/28/2014): Had surgery (per pt removed liquid) in 2005 Resolved Problems Problem Noted Date Diagnosed Date Resolved Date Numbness of right lower extremity 06/10/2015 07/11/2023 Encounters Date Type Department Care Team Description 01/05/2025 Interim Notes [address] [address] Bria Madrigal 11/05/2024 Results Follow-Up [address] [address] Cintia Zambrano FNP 11/04/2024 11:00 AM EDT Office Visit [address] [address] Cintia Zambrano FNP from Last 3 Months [...] Pf, Maximiliano-sucrose, 30 Mcg/0.3 Ml, 12yr+ 04/11/2023 Spiralcat COVID-19 Vac cine Bivalent, (CORCORAN PFIZER-BIONTECH COVID-19 [...] Flexible Sigmoidoscopy 2010 Colonoscopy 12/01/2019 11/30/2014 (Amelia ged by Outside Provider) Colorectal Cancer Screening 05/11/2024 [...] 09/28/2022, 10/04/2016 Imm-Hepatitis B Completed 04/11/2023, 09/28/2022 [id number] Completed 01/08/2024, 03/29, 09/28/2022, Additional history exists Alcohol and Drug Screen Completed 07/02/19 25, 07/11/2023, 09/28/2022, Additional history exists Depression Annual Screen Completed 025, 07/11/2023, 09/28/2014 Imm-Zoster, Recombinant Completed 07/01/2024, 02/02 Procedures Procedure Name Priority Date/Time Associated Diagnosis Comments REFERRAL SCANNED DOCUMENT 01/04/2025 3:00 AM EDT LAB SCANNED DOCUMENT 01/04/2025 3:00 AM EDT IMAGING SCANNED DOCUMENT 01/02/2025 3:00 AM EDT IMAGING SCANNED DOCUMENT 01/02/2025 3:00 AM EDT REFERRAL SCANNED DOCUMENT 12/16/2024 3:00 AM EDT [...] complication, without long-term current use of insulin ([facility]) TSH W/RFLX FREE T4 Routine 11/04/2024 11 :16 AM EDT Routine general medical examination at a health care facility BLOOD COUNT COMPLETE AUTO&AUTO DIFRNTL WBC Routine 11/04/2024 11:16 AM EDT Routine general medical examination at a [facility] care facility COMPREHENSIVE METABOLIC PANEL Routine 11/04/2024 11:16 AM EDT Routine general medical examination at a health care facility Controlled type 2 diabetes mellitus without complication, without long-term current use of insulin ([facility]) REFERRAL SCANNED DOCUMENT 10/26/2024 3:00 AM EDT IMAGING SCANNED DOCUMENT 10/20/2024 3:00 AM EDT IMAGING SCANNED DOCUMENT 10/20/2024 3:00 AM EDT MICROALBUMIN/CREATININ E RATIO, URINE, RANDOM Routine 05/12/2024 8:40 AM EST Type 2 diabetes mellitus without complication, without long-term current use of insulin ([facility]) FECAL GLOBIN BY IMMUNOCHEMISTRY (FIT) Routine [...] Health Maintenance Results * REFERRAL SCANNED DOCUMENT (01/04/2025 3:00 AM EDT) Only the most recent of3 resultswithin the time period is included. 01/04/2025 3:00 AM EDT Dmitri Arzola MD SCAN REFERRAL Final Result * LAB SCANNED DOCUMENT (01/04/2025 3:00 AM EDT) 01/04/2025 3:00 AM EDT Naye RIOS SCAN LAB Final Result * IMAGING SCANNED DOCUMENT (01/02/2025 3:00 AM EDT) Only the most recent of4 resultswithin the time period is included. 01/02/2025 3:00 AM EDT Result [facility] Dmitri Arzola MD SCAN IMAGING Final Result * REFERRAL TO OPTHALMOLOGY (11/19/2024 3:00 AM EDT) 11/19/2024 3:00 AM EDT Cintia Zambrano [employer] STOM[employer] PREPARER REFERRAL Cyndi l Result * (ABNORMAL) HGA1C W/EAG Routine (11/04/2024 11:16 AM EDT) HEMOGLOBIN A1C 7.2(H) <5.7 % [facility] Comment: For someone without known diabetes, a [...] diabetes for children. EAG (MG/DL) 160 mg/dL [facility] EAG (MMOL/L) 8.9 mmol/L [facility] Blood Blood / Unknown 11/04/2024 1 1:16 AM EDT 11/04/2024 11:17 AM EDT Narrative [facility] - 11/05/2024 9:27 AM EDT FASTING:YES COLLECTION KIT GIVEN TO PATIENT. PATIENT ADVISED TO RETURN. Cintia Zambrano [facility] - BLOOD DRAW Rajiv doug Result - Final Performing Organization Address [facility]/ZIP Co de Phone Number [facility] [address] [place] [phone], [employer] [address] [phone] * TSH W/RFLX FREE T4 Routine (11/04/2024 11:16 AM EDT) TSH W/REFLEX TO FT4 1.28 0.40 - 4.50 mIU/L [facility] Blood Blood / Unknown 11/04/2024 1 1:16 AM EDT 11/04/2024 11:17 AM EDT Narrative [facility] - 11/05/2024 9:27 AM EDT FASTING:YES COLLECTION KIT GIVEN TO PATIENT. PATIENT ADVISED TO RETURN. Cintia Zambrano [facility] - BLOOD DRAW Rajiv doug Result - Final Performing Organization Address [facility] Co de Phone Number [facility] [address] [place] [phone], [employer] [address] [place] [phone] * (ABNORMAL) LIPIDS W RFLX TO DIRECT LDL Routine (11/04/2024 11:16 AM EDT) CHOLESTEROL, TOTAL 170 <200 mg/dL [facility] HDL CHOLESTEROL 36(L) > OR = 40 mg/dL [facility] TRIGLYCERIDES 331(H) <150 mg/dL [facility] Comment: If a non-fasting specimen was collected, consider repeat triglyceride testing on a fasting specimen if clinically indicated. Joel et al. J. of Clin. Lipidol. 2015;9:129-169. LDL-CHOLESTEROL 90 99 mg/dL (calc) [facility] Comment: Reference range: <100 Desirable range <100 mg/dL for primary prevention; <70 mg/dL for patients with CHD or diabetic patients with > or = 2 CHD risk factors. LDL-C is now calculated using the Jennifer calculation, which is a validated novel method providing better accuracy than the Friedewald equation in the estimation of LDL-C. Nick RODRIGUEZ et al. RONALD. 2013;310(19): 6907-1142 (http://education.Language Cloud/faq/VHE877) CHOL/HDLC RATIO 4.7 <5.0 (calc) [facility] NON-HDL CHOLESTEROL 134(H) <130 mg/dL (calc) [facility] Comment: For patients with diabetes plus 1 major ASCVD risk factor, treating to a non-HDL-C goal of <100 mg/dL (LDL-C of <70 mg/dL) is considered a therapeutic option. Blood Blood / Unknown 11/04/2024 1 1:16 AM EDT 11/04/2024 11:17 AM EDT Narrative [facility] - 11/05/2024 9:27 AM EDT FASTING:YES COLLECTION KIT GIVEN TO PATIENT. PATIENT ADVISED TO RETURN. Cintia Zambrano [facility] - BLOOD DRAW Fin al Result [facility] [address] [place] [id number], [facility] [address] [place] [phone] * BLOOD COUNT COMPLETE AUTO&AUTO DIFRNTL WBC Routine (11/04/2024 11:16 AM EDT) WHITE BLOOD CELL COUNT 5.9 3.8 - 10.8 Thousand/ uL [facility] RED BLOOD CELL COUNT 4.89 4.20 - 5.80 Million/u L [facility] HEMOGLOBIN 13.6 13.2 - 17.1 g/dL [facility] HEMATOCRIT 42.0 38.5 - 50.0 % [facility] MCV 85.9 80.0 - 100.0 fL [facility] MCH 27.8 27.0 - 33.0 pg [facility] MCHC 32.4 32.0 - 36.0 g/dL [facility] Comment: For adults, a slight decrease in the calculated MCHC value (in the range of 30 to 32 g/dL) is most likely not clinically significant; however, it should be interpreted with caution in correlation with other red cell parameters and the patient's clinical condition. RDW 13.7 11.0 - 15.0 % [facility] PLATELET COUNT 287 140 - 400 Thousand/ uL [facility] MPV 9.5 7.5 - 12.5 fL [facility] ABSOLUTE NEUTROPHILS 2,407 1,500 - 7,800 cells/uL [facility] ABSOLUTE LYMPHOCYTES 2,921 850 - 3,900 cells/uL [facility] ABSOLUTE MONOCYTES 419 200 - 950 cells/uL [facility] ABSOLUTE EOSINOPHILS 112 15 - 500 cells/uL [facility] ABSOLUTE BASOPHILS 41 0 - 200 cells/uL [facility] NEUTROPHILS PCT 40.8 % QUES T [employer] LYMPHOCYTES 49.5 % [facility] [employer] [place] MONOCYTES 7.1 % [facility] [employer] EOSINOPHILS 1.9 % [facility] [employer] BASOPHILS 0.7 % [facility] [employer] Blood Blood / Unknown 11/04/2024 1 1:16 AM EDT 11/04/2024 11:17 AM EDT Narrative [facility] - 11/05/2024 9:27 AM EDT FASTING:YES COLLECTION KIT GIVEN TO PATIENT. PATIENT ADVISED TO RETURN. Cintia [facility] - BLOOD DRAW Rajiv doug Result - Final [facility] [address] [address], [facility] [address] [place] [address] * (ABNORMAL) COMPREHENSIVE METABOLIC PANEL Routine (11/04/2024 11:16 AM EDT) GLUCOSE 115(H) 65 - 99 mg/dL [facility] Comment: Fasting reference interval For someone without known diabetes, a glucose value between 100 and 125 mg/dL is consistent with prediabetes and should be confirmed with a follow-up test. UREA NITROGEN (BUN) 23 7 - 25 mg/dL [facility] CREATININE (blood) 2.37(H) 0.70 - 1.30 mg/dL [facility] EGFR 31(L) > OR = 60 mL/min/1. 73m2 [facility] BUN/CREATININE RATIO 10 6 - 22 (calc) [facility] SODIUM 136 135 - 146 mmol/L [facility] POTASSIUM 4.0 3.5 - 5.3 mmol/L [facility] CHLORIDE 104 98 - 110 mmol/L [facility] CARBON DIOXIDE 23 20 - 32 mmol/L [facility] CALCIUM 8.9 8.6 - 10.3 mg/dL [facility] PROTEIN, TOTAL 6.9 6.1 - 8.1 g/dL [facility] ALBUMIN 4.2 3.6 - 5.1 g/dL [facility] GLOBULIN 2.7 1.9 - 3.7 g/dL (calc) [facility] ALBUMIN/GLOBULI N RATIO 1.6 1.0 - 2.5 (calc) [facility] BILIRUBIN, TOTAL 0.3 0.2 - 1.2 mg/dL [facility] ALKALINE PHOSPHATASE 84 35 - 144 U/L [facility] AST 22 10 - 35 U/L [facility] ALT 40 9 - 46 U/L [facility] Blood Blood / Unknown 11/04/2024 1 1:16 AM EDT 11/04/2024 11:17 AM EDT Narrative [facility] - 11/05/2024 9:27 AM EDT FASTING:YES COLLECTION KIT GIVEN TO PATIENT. PATIENT ADVISED TO RETURN. Cintia [facility] - BLOOD DRAW Fin al Result [facility] [address] [address], [facility] [address] [address] * MICROALBUMIN/CREATININE RATIO, URINE, RANDOM (05/12/2024 8:40 AM EST) CREATININE, RANDOM URINE 125 20 - 320 mg/dL [facility] MICROALBUMIN 1.3 mg/dL [facility] Comment: Reference Range Not established MICROALBUMIN/CREA TININE RATIO, RANDOM URINE 10 <30 mg/g creat [facility] Comment: The ADA defines abnormalities in albumin [...] AM EST 05/12/2024 8:40 AM EST Narrative [facility] [employer] - 05/14/2024 6:43 PM EST SPLIT 02/03/2024 FROM [id number] us Dmitri Arzola MD LAB URINE AMBULATORY Final Resu lt Performing Organization Address [facility] Co de Phone Number [facility] [address] [place] [address], [employer] [address] [phone] * FECAL GLOBIN BY IMMUNOCHEMISTRY (FIT) (05/10/2024 7:00 PM EST) FECAL GLOBIN BY IMMUNOCHEMISTRY See Note [facility] Comment: FECAL GLOBIN BY IMMUNOCHEMISTRY Micro Number: [id number] Test Status: Final Specimen Source: Insure (tm) fobt test card Specimen Quality: Adequate Fecal Globin: Not Detected Stool Stool specimen / Unknown 05/10/2024 7:00 PM EST 05/14/2024 7:37 AM EST us Dmitri Arzola MD LAB BODY FLUIDS AND STOOLS AMBU LATORY Final Result Performing Organization Address [facility] Co de Phone Number [facility] [address] [place] [phone], [employer] [address] [phone] * HEPATITIS A,B,C PANEL (05/08/2019 9:55 AM EST) HEPATITIS B SURFACE ANTIBODY NEGATIVE NEGATIVE [facility] HEPATITIS B SURFACE ANTIGEN NEGATIVE NEGATIVE [facility] Comment: Over the counter supplements containing high doses of biotin may interfere with this assay. If interference is suspected, patients shoud be retested after refraining from biotin supplements for 72 hours. HEPATITIS C VIRUS DIAGNOSTIC NEGATIVE NEGATIVE [facility] HEPATITIS A ANTIBODY TOTAL NEGATIVE NEGATIVE [facility] Comment: Over the counter supplements containing high doses of biotin may interfere with this assay. If interference is suspected, patients shoud be retested after refraining from biotin supplements for 72 hours. HEPATITIS B CORE ANTIBODY NEGATIVE NEGATIVE [facility] Blood specimen (specimen) Blood / Unknown 05/08/2019 9:55 AM EST 05/08/2019 10:21 AM EST Narrative [facility] - 05/08/2019 1:59 PM EST [employer] [address] Abe Teacher - Roslyn Live MD PT ID [id number] ORD# [id number] [facility] - BLOOD DRAW Edited Res ult - Final Performing Organization Address City/State/[facility] Co de Phone Number [address] [address], * HIV-1 & HIV-2 ANTIBODIES (05/08/2019 9:55 AM EST) [facility] HIV 1 AND 2 ANTIBODY SCREEN NONREACTIVE NONREACTIVE [facility] Comment: HIV testing performed at reference lab due to reagent backorder. Test performed at: [facility] [address] [place] [address] Juan Carlos Martinez MD- Abe Teacher Blood specimen (specimen) Blood / Unknown 05/08/2019 9:55 AM EST 05/08/2019 10:21 AM EST Narrative [facility] - 05/13/2019 2:51 PM EST [employer] [address] Abe Teacher - Roslyn Live MD PT ID [id number] ORD# [id number] L[facility] - BLOOD DRAW Final Resu lt [facility] [address] [place] [address], from Last 3 Months or Most Recently Relevant to Health Maintenance Insurance [facility] [employer] Care Teams Office Support Specialist Relationship Specialty Start Date End Date Dmitri Arzola MD [address] [place] [address] PCP - General Internal Medicine 05/05/19
== END 2025-01-06 15:49 | disposition home or self-care (01) ==
LOC: HO.HKA 15:02
PROVIDERS: PCP Internal Medicine; Visit Provider Internal Medicine Nephrology
DX: I10 Essential (primary) hypertension (principal); N18.31 Chronic kidney disease, stage 3a; R80.8 Other proteinuria; R09.89 Other specified symptoms and signs involving the circulatory and respiratory systems
CPT/HCPCS: 99214

== ENCOUNTER → 2025-01-06 15:02 | Outpatient (BNVA) | payer MEDICAID, SELFPAY | PROVIDERS: PCP Internal Medicine; Visit Provider Internal Medicine Nephrology | DX: I12.9 Hypertensive chronic kidney disease with stage 1 through stage 4 chronic kidney disease, or unspecified chronic kidney disease (principal); N18.31 Chronic kidney disease, stage 3a; R80.8 Other proteinuria; R09.89 Other specified symptoms and signs involving the circulatory and respiratory systems | CPT/HCPCS: 99212 ==

== ENCOUNTER → 2025-01-07 15:15 | Outpatient (BNVA) | payer MEDICAID, SELFPAY | PROVIDERS: PCP Internal Medicine; Visit Provider Internal Medicine Nephrology | DX: R09.89 Other specified symptoms and signs involving the circulatory and respiratory systems (principal) | CPT/HCPCS: 93786; 93788 ==

== ENCOUNTER 2025-01-08 15:36 | Outpatient (AMB) | payer MEDICAID, SELFPAY ==
--- NOTE | 2025-01-08 15:45 | HO.NEPHOV_ITS ---
Intake Visit Reasons: Saturday f/u per Career Manager Required: No Accompanied by: Significant Other Allergies lisinopril Allergy (Verified 01/08/25 15:46) Facial Swelling HPI Comments Details: 59-year-old male with history of diabetes, hypertension who recently was admitted and treated for Acute renal failure with acute metabolic acidosis requiring acute hemodialysis which seems to be related more to ATN . He has significant improvement in his urine output and his serum creatinine steadily improved and stabilized. Permacath was placed on 06/02/24 & his last inpatient HD session on 06/03/24. He presented to ER with facial swelling and lip swelling which was thought to be angioedema from ACEI. At one of the last last office visit he had difficulty turning his neck as well as right sided neck swelling. He denied any SOB or hemoptysis. He was thought to have DVT in IJ which was confirmed by USS and his permcath was removed & had been on Elquis. He ran out of his BP medications and did not take it for a week and was seen in ER. He continues to have labile BP. He had a 24 hour BPM which showed uncontrolled BP. He is seen in follow up [facility] Medical History Hypertension RAMONITA (acute kidney injury) Uncontrolled hypertension ESRD needing dialysis HLD (hyperlipidemia) Non-insulin dependent type 2 diabetes mellitus Asthma Social History Household Members: Family Housing: Apartment Do you presently have visiting nurse or other home services: No Alcohol intake: former Patient Tobacco Use Status: Current someday Tobacco user Tobacco use type: Cigarette Cigarette Packs Per Day: 1 Cigarettes Per Day: 9 e-Cigarette/Vaping Use: Never Used Second Hand Smoke Exposure: No service: No Current occupational status: employed Review of Systems Const All systems reviewed & are unremarkable except as noted in HPI and below Physical Exam Const General: comfortable and no acute distress Orientation/consciousness: patient oriented x3 HEENT Head: Yes normocephalic Mouth: Normal oral and palatal mucosa present Eyes EOM: EOMs intact bilaterally Neck Neck: Yes supple Resp Auscultation: clear to auscultation bilaterally Cardio Jugular venous distension: no JVD Rate: regular rate GI Palpation (GI): Soft to palpation Auscultation: normal bowel sounds General: Yes no CVA tenderness Back/Spine/Pelvis Back: no CVA tenderness Skin General skin exam: no rashes or lesions noted Neuro General: patient oriented x3 and moves all extremities Extrem General: Yes no pedal edema Results Reviewed Nephrology Results: Hgb, (14.0-18.0) 12.2 g/dl L 01/02/25 WBC, (4.8-10.8) 6.2 X10*3/uL 01/02/25 Plt Count, (160-400) 255 X10*3/uL 01/02/25 Sodium, (135-145) 140 mmol/L 01/02/25 Potassium, (3.3-5.1) 3.8 mmol/L 01/02/25 Chloride, (96-108) 106 mmol/L 01/02/25 Carbon Dioxide, (22-29) 24 mmol/L 01/02/25 BUN, (9-16) 25 mg/dL H 01/02/25 Creatinine, (0.5-1.4) 2.75 mg/dL H 01/02/25 Calcium, (8.4-10.2) 8.9 mg/dL Δ 01/02/25 Urine Protein, (Neg-Trace) 300 (3+) mg/dL H 01/02/25 Renal US 05/21/24 Assessment & Plan Assessment & Plan (1) Labile blood pressure: Code(s): R09.89 - Other specified symptoms and signs involving the circulatory and respiratory systems Category: Medical (2) CKD stage 3b, GFR 30-44 ml/min: Code(s): N18.32 - Chronic kidney disease, stage 3b Category: Medical Plan H/O RAMONITA due to ATN ( S/P renal biopsy)- recovered Likely has underlying diabetic kidney disease( CKD 3 B) Urine output good; Has DVT of neck- Was on Elquis- off it No ACEI/NSAID's; 24 hour BP monitor results reviewed today D/David Amlodipine. Started Nifedipine; Will need 24 hr urine for cr cl soon Will be a candidate for SGLT2 i; F/U with me next week Medications: New nifedipine ER 60 mg PO DAILY 30 tabs 6RF Discontinued amlodipine Discontinued Reason: Doctor's Order 10 mg See Protocol PO DAILY 90 tabs 0RF Coding Level of Care Code Est Pt Level 4 (33937) 87699 ABPM Reading Diagnoses Labile blood pressure R09.89 CKD stage 3b, GFR 30-44 ml/min N18.32
--- OUTSIDE RECORDS SUMMARY | 2025-01-08 17:43 | XMS_ITS | Encounter Summary ---
Author Organization [facility] Address [address] [place] [address] Care Team Providers Care Explosives Operator Name Role Phone Dmitri Arzola MD Primary Care Provider Reason for Visit * Reason Comments Care Coordination Encounter Details Date Type Department Care Team ([facility] Contact Info) Description 01/05/2025 Interim Notes [facility] [address] [place] [address] Rohan Bria [address] [place], [place] [id number] Social History Tobacco Use Types Packs/Day Years [...] Patient admitted 01/02/25 and discharged 01/02/25 from [facility]. Assigned to Lindsay GILBERT [...] documented as of this encounter Care Teams Explosives Operator Relationship Specialty Start Date End Date Dmitri Arzola MD [address] [place] [address] PCP - General Internal Medicine 05/05/19 documented as of this encounter
--- OUTSIDE RECORDS SUMMARY | 2025-01-08 17:44 | XMS_ITS | Clinical Summary ---
Author Organization [employer] Address [address] [facility] 7 [place] [address] Care Team Providers Care Buffet Attendant Name Role Phone Unavailable Primary Care Provider Unavailabl e Encounters Date Type Department Care Team Description 11/17/2024 Population Health Risk Score Count Includes [facility] Care [facility] (C3) Department [address] [phone] Provider, Population Health Generic from Last 3 [...]
--- OUTSIDE RECORDS SUMMARY | 2025-01-08 17:44 | XMS_ITS | Clinical Summary ---
Author Organization [facility] Address [address] [place] [address] Care Team Providers Care Mechanical Facilities Technician Name Role Phone Dmitri Arzola MD [...] complication, without long-term current use of insulin ([facility]) Pt is Diabetic . E11.9 1 Each 024 Active alcohol swabsIndications: Type 2 diabetes mellitus without complication, without long-term current use of insulin ([facility]) Pt is Diabetic . E11.9 once a day 100 Each 1 025 Active blood sugar diagnostic (FREESTYLE TEST) stripsIndications :Type 2 diabetes mellitus without complication, without long-term current use of insulin ([facility]) USE TO TEST ONCE [...] to occlusion of left anterior cerebral artery ([facility]),Mixed hyperlipidemia TAKE 1 TABLET BY MOUTH EVERY DAY 90 Tablet 1 025 Active omeprazole (PRILOSEC) [address] capsuleIndication s:Gastroesophagea l reflux disease without esophagitis TAKE 1 CAPSULE BY MOUTH EVERY DAY IN THE MORNING BEFORE BREAKFAST 90 Capsule 2 025 Active metFORMIN (GLUCOPHAGE) 500 mg tabletIndications :Controlled type 2 diabetes mellitus without complication, without long-term current use of insulin ([facility]) TAKE 1 TABLET BY MOUTH TWICE A DAY WITH FOOD 180 Tablet 025 Active ELIQUIS 5 mg tabIndications:Ar m DVT (deep venous thromboembolism), acute, right ([facility]) TAKE 1 TABLET BY MOUTH TWICE A DAY 60 Tablet 1 025 Active atenoloL (TENORMIN) 50 mg tabletIndications :Primary hypertension TAKE 1 TABLET BY MOUTH EVERY DAY 90 Tablet 025 Active lancets (FREESTYLE LANCETS) 28 gaugeIndications: Type 2 diabetes mellitus without complication, without long-term current use of insulin ([facility]) CHECK ONCE A DAY 100 Each 1 025 Active lancets (FREESTYLE LANCETS) 28 gaugeIndications: Type 2 diabetes mellitus without complication, without long-term current use of insulin ([facility]) Pt is Diabetic . E11.9 check once a day 100 Each 1 025 2024 Discontinued atenoloL (TENORMIN) 50 mg tabletIndications :Primary hypertension TAKE 1 TABLET BY MOUTH EVERY DAY 90 Tablet 025 2024 Discontinued Active Problems Problem Noted Date Diagnosed Date Arm DVT (deep venous thrombo embolism), acute, right ([facility]) 06/16/2024 Overview (06/16/2024): [facility] 06/09/2024 Admitted for Right sided neck pain and swelling . Sent to Er by [employer] for concern of DVT Right Internal Jugular vein . Right IJ Perm Cath removed. Venous Duplex showed positive for DVT Right IJ Vein . Started on Eliquis 10 mg po bid for 7 days then 5 mg po bid Food insecurity 04/16/2024 Financial difficulties 04/16/2024 Cerebrovascular accident (CV A) due to occlusion of left anterior cerebral artery ([facility]) 09/26/2022 Overview (09/26/2022): Admitted [facility]- Admitted 09/21/22 and Woke up in middle [...] melly, without long-term current use of insulin ([facility]) 01/04/2015 Lump 10/28/2014 Overview (10/28/2014): R foot [facility] 09/2014: negative Mild intermittent asthma ([facility]) 09/28/2014 Overview (09/28/2014): Since childhood Gastroesophageal [...] Department Care Team Description 01/05/2025 Interim Notes [address] [phone] Bria Madrigal 11/05/2024 Results Follow-Up [address] [address] Cintia Zambrano FNP 11/04/2024 11:00 AM EDT Office Visit [address] [address] Cintia Zambrano FNP from Last 3 Months [...] Pf, Maximiliano-sucrose, 30 Mcg/0.3 Ml, 12yr+ 04/11/2023 [facility] Test COVID-19 Vac cine Bivalent, ([employer] COVID-19 [...] 02/02/2025 023, 05/06/2019 Hemoglobin A1c 02/04/2025 11/04/2024, 10/0 10/2023, 04/11/2023, Additional history exists FIT/gFOBT 05/10/2025 [...] 09/28/2022, 10/04/2016 Imm-Hepatitis B Completed 04/11/2023, 09/28/2022 [id number] Completed 01/08/2024, 03/29, 09/28/2022, Additional history exists Alcohol and Drug Screen Completed 07/02/19 25, 07/11/2023, 09/28/2022, Additional history exists Depression Annual Screen Completed 025, 07/11/2023, 09/28/2014 Imm-Zoster, Recombinant Completed 07/01/2024, 02/02 Procedures Procedure Name Priority Date/Time Associated Diagnosis Comments REFERRAL SCANNED DOCUMENT 01/06/2025 3:00 AM EDT REFERRAL SCANNED DOCUMENT 01/04/2025 3:00 AM EDT [...] complication, without long-term current use of insulin ([facility]) TSH W/RFLX FREE T4 Routine 11/04/2024 11 :16 AM EDT Routine general medical examination at a [facility] care facility BLOOD COUNT COMPLETE AUTO&AUTO DIFRNTL WBC Routine 11/04/2024 11:16 AM EDT Routine general medical examination at a [facility] care facility COMPREHENSIVE METABOLIC PANEL Routine 11/04/2024 11:16 AM EDT Routine general medical examination at a health care facility Controlled type 2 diabetes mellitus without complication, without long-term current use of insulin ([facility]) REFERRAL SCANNED DOCUMENT 10/26/2024 3:00 AM EDT IMAGING SCANNED DOCUMENT 10/20/2024 3:00 AM EDT IMAGING SCANNED DOCUMENT 10/20/2024 3:00 AM EDT MICROALBUMIN/CREATININ E RATIO, URINE, RANDOM Routine 05/12/2024 8:40 AM EST Type 2 diabetes mellitus without complication, without long-term current use of insulin ([facility]) FECAL GLOBIN BY IMMUNOCHEMISTRY (FIT) Routine [...] Health Maintenance Results * REFERRAL SCANNED DOCUMENT (01/06/2025 3:00 AM EDT) Only the most recent of4 resultswithin the time period is included. 01/06/2025 3:00 AM EDT us Dmitri Arzola MD SCAN REFERRAL Final Result * LAB SCANNED DOCUMENT (01/04/2025 3:00 AM EDT) 01/04/2025 3:00 AM EDT Naye RIOS SCAN LAB Final Result * IMAGING SCANNED DOCUMENT (01/02/2025 3:00 AM EDT) Only the most recent of4 resultswithin the time period is included. 01/02/2025 3:00 AM EDT Dmitri Arzola MD SCAN IMAGING Final Result * REFERRAL TO OPTHALMOLOGY (11/19/2024 3:00 AM EDT) 11/19/2024 3:00 AM EDT Result [facility] Cintia Zambrano MANAGER LIFE REFERRAL Cyndi l Result * (ABNORMAL) HGA1C W/EAG Routine (11/04/2024 11:16 AM EDT) HEMOGLOBIN A1C 7.2(H) <5.7 % [facility] Comment: For someone without known diabetes, a [...] diabetes for children. EAG (MG/DL) 160 mg/dL [facility] EAG (MMOL/L) 8.9 mmol/L [facility] Blood Blood / Unknown 11/04/2024 1 1:16 AM EDT 11/04/2024 11:17 AM EDT Narrative [employer] - 11/05/2024 9:27 AM EDT FASTING:YES COLLECTION KIT GIVEN TO PATIENT. PATIENT ADVISED TO RETURN. [facility] - BLOOD DRAW Rajiv doug Result - Final Performing Organization Address [facility]/ZIP Co de Phone Number [employer] [place] [employer] [address] [place] [phone], [employer] [address] [phone] * TSH W/RFLX FREE T4 Routine (11/04/2024 11:16 AM EDT) Pathologist [facility] TSH W/REFLEX TO FT4 1.28 0.40 - 4.50 mIU/L [facility] Blood Blood / Unknown 11/04/2024 1 1:16 AM EDT 11/04/2024 11:17 AM EDT Narrative [employer] [facility] - 11/05/2024 9:27 AM EDT FASTING:YES COLLECTION KIT GIVEN TO PATIENT. PATIENT ADVISED TO RETURN. Cintia DuranQuinn FNP LAB - BLOOD DRAW Rajiv doug Result - Final Performing Organization Address [facility] Co de Phone Number [employer] [address] [address], [employer] [address] [address] * (ABNORMAL) LIPIDS W RFLX TO DIRECT LDL Routine (11/04/2024 11:16 AM EDT) [facility] CHOLESTEROL, TOTAL 170 <200 mg/dL [employer] [facility] HDL CHOLESTEROL 36(L) > OR = 40 mg/dL [facility] TRIGLYCERIDES 331(H) <150 mg/dL [facility] Comment: If a non-fasting specimen was collected, consider repeat triglyceride testing on a fasting specimen if clinically indicated. Joel et al. J. of Clin. Lipidol. 2015;9:129-169. LDL-CHOLESTEROL 90 99 mg/dL (calc) [facility] Comment: Reference range: <100 Desirable range <100 mg/dL for primary prevention; <70 mg/dL for patients with CHD or diabetic patients with > or = 2 CHD risk factors. LDL-C is now calculated using the Nick-Martinez calculation, which is a validated novel method providing better accuracy than the Friedewald equation in the estimation of LDL-C. Nick SS et al. RONALD. 2013;310(83): 6133-1889 (http://education.[employer]/faq/QSN209) CHOL/HDLC RATIO 4.7 <5.0 (calc) [facility] NON-HDL CHOLESTEROL 134(H) <130 mg/dL (calc) [facility] Comment: For patients with diabetes plus 1 major ASCVD risk factor, treating to a non-HDL-C goal of <100 mg/dL (LDL-C of <70 mg/dL) is considered a therapeutic option. Blood Blood / Unknown 11/04/2024 1 1:16 AM EDT 11/04/2024 11:17 AM EDT Narrative [facility] - 11/05/2024 9:27 AM EDT FASTING:YES COLLECTION KIT GIVEN TO PATIENT. PATIENT ADVISED TO RETURN. Cintia VILLASEÑOR LAB - BLOOD DRAW [facility] al Result [facility] [address] [place] [phone], [facility] [address] [place] [phone] * BLOOD COUNT COMPLETE AUTO&AUTO DIFRNTL WBC Routine (11/04/2024 11:16 AM EDT) WHITE BLOOD CELL COUNT 5.9 3.8 - 10.8 Thousand/ uL [facility] RED BLOOD CELL COUNT 4.89 4.20 - 5.80 Million/u L [facility] HEMOGLOBIN 13.6 13.2 - 17.1 g/dL [facility] HEMATOCRIT 42.0 38.5 - 50.0 % [facility] MCV 85.9 80.0 - 100.0 fL [facility] MCH 27.8 27.0 - 33.0 pg [facility] MCHC 32.4 32.0 - 36.0 g/dL [facility] Comment: For adults, a slight decrease in the calculated MCHC value (in the range of 30 to 32 g/dL) is most likely not clinically significant; however, it should be interpreted with caution in correlation with other red cell parameters and the patient's clinical condition. RDW 13.7 11.0 - 15.0 % [facility] PLATELET COUNT 287 140 - 400 Thousand/ uL [facility] MPV 9.5 7.5 - 12.5 fL [facility] ABSOLUTE NEUTROPHILS 2,407 1,500 - 7,800 cells/uL [facility] ABSOLUTE LYMPHOCYTES 2,921 850 - 3,900 cells/uL [facility] ABSOLUTE MONOCYTES 419 200 - 950 cells/uL [facility] ABSOLUTE EOSINOPHILS 112 15 - 500 cells/uL [facility] ABSOLUTE BASOPHILS 41 0 - 200 cells/uL [facility] NEUTROPHILS PCT 40.8 % [employer] LYMPHOCYTES 49.5 % [facility] [employer] MONOCYTES 7.1 % [facility] EOSINOPHILS 1.9 % [facility] 2,10E+07 BASOPHILS 0.7 % [employer] Blood Blood / Unknown 11/04/2024 1 1:16 AM EDT 11/04/2024 11:17 AM EDT Narrative [facility] - 11/05/2024 9:27 AM EDT FASTING:YES COLLECTION KIT GIVEN TO PATIENT. PATIENT ADVISED TO RETURN. Cintia VILLASEÑOR LAB - BLOOD DRAW Rajiv doug Result - Final [facility] [address] [place] [phone], [facility] [address] [place] [phone] * (ABNORMAL) COMPREHENSIVE METABOLIC PANEL Routine (11/04/2024 11:16 AM EDT) GLUCOSE 115(H) 65 - 99 mg/dL [facility] Comment: Fasting reference interval For someone without known diabetes, a glucose value between 100 and 125 mg/dL is consistent with prediabetes and should be confirmed with a follow-up test. UREA NITROGEN (BUN) 23 7 - 25 mg/dL [facility] CREATININE (blood) 2.37(H) 0.70 - 1.30 mg/dL [facility] EGFR 31(L) > OR = 60 mL/min/1. 73m2 [facility] BUN/CREATININE RATIO 10 6 - 22 (calc) [employer] [facility] SODIUM 136 135 - 146 mmol/L [employer] [facility] POTASSIUM 4.0 3.5 - 5.3 mmol/L [employer] [facility] CHLORIDE 104 98 - 110 mmol/L [employer] [facility] CARBON DIOXIDE 23 20 - 32 mmol/L [employer] [facility] CALCIUM 8.9 8.6 - 10.3 mg/dL [employer] [facility] PROTEIN, TOTAL 6.9 6.1 - 8.1 g/dL [employer] [facility] ALBUMIN 4.2 3.6 - 5.1 g/dL [employer] [facility] GLOBULIN 2.7 1.9 - 3.7 g/dL (calc) [employer] [facility] ALBUMIN/GLOBULI N RATIO 1.6 1.0 - 2.5 (calc) [employer] [facility] BILIRUBIN, TOTAL 0.3 0.2 - 1.2 mg/dL [employer] [facility] ALKALINE PHOSPHATASE 84 35 - 144 U/L [employer] [facility] AST 22 10 - 35 U/L [employer] [facility] ALT 40 9 - 46 U/L [employer] [facility] Blood Blood / Unknown 11/04/2024 1 1:16 AM EDT 11/04/2024 11:17 AM EDT Narrative [employer] [facility] - 11/05/2024 9:27 AM EDT FASTING:YES COLLECTION KIT GIVEN TO PATIENT. PATIENT ADVISED TO RETURN. Cintia Zambrano MANAGER LIFE LAB - BLOOD DRAW Fin al Result [employer] [address] [address], [employer] [address] [phone] * MICROALBUMIN/CREATININE RATIO, URINE, RANDOM (05/12/2024 8:40 AM EST) CREATININE, RANDOM URINE 125 20 - 320 mg/dL [employer] [facility] MICROALBUMIN 1.3 mg/dL [employer] [facility] Comment: Reference Range Not established MICROALBUMIN/CREA TININE RATIO, RANDOM URINE 10 <30 mg/g creat [employer] [facility] Comment: The ADA defines abnormalities in [...] AM EST 05/12/2024 8:40 AM EST Narrative [facility] [employer] [facility] - 05/14/2024 6:43 PM EST SPLIT 02/03/2024 FROM [id number] us Dmitri Arzola MD LAB URINE AMBULATORY Final Resu lt Performing Organization Address [facility] Co de Phone Number [employer] [place] [employer] [address] [place] [phone], [employer] [address] [phone] * FECAL GLOBIN BY IMMUNOCHEMISTRY (FIT) (05/10/2024 7:00 PM EST) FECAL GLOBIN BY IMMUNOCHEMISTRY See Note [facility] Comment: FECAL GLOBIN BY IMMUNOCHEMISTRY Micro Number: [id number] Test Status: Final Specimen Source: Insure (tm) fobt test card Specimen Quality: Adequate Fecal Globin: Not Detected Stool Stool specimen / Unknown 05/10/2024 7:00 PM EST 05/14/2024 7:37 AM EST us Dmitri Arzola MD LAB BODY FLUIDS AND STOOLS AMBU LATORY Final Result Performing Organization Address [facility] de Phone Number [facility] [address] [place] [phone], [employer] [address] [phone] * HEPATITIS A,B,C PANEL (05/08/2019 9:55 AM EST) HEPATITIS B SURFACE ANTIBODY NEGATIVE NEGATIVE [facility] HEPATITIS B SURFACE ANTIGEN NEGATIVE NEGATIVE [facility] Comment: Over the counter supplements containing high doses of biotin may interfere with this assay. If interference is suspected, patients shoud be retested after refraining from biotin supplements for 72 hours. HEPATITIS C VIRUS DIAGNOSTIC NEGATIVE NEGATIVE [facility] HEPATITIS A ANTIBODY TOTAL NEGATIVE NEGATIVE [facility] Comment: Over the counter supplements containing high doses of biotin may interfere with this assay. If interference is suspected, patients shoud be retested after refraining from biotin supplements for 72 hours. HEPATITIS B CORE ANTIBODY NEGATIVE NEGATIVE [facility] Blood specimen (specimen) Blood / Unknown 05/08/2019 9:55 AM EST 05/08/2019 10:21 AM EST Shannon [facility] - 05/08/2019 1:59 PM EST Nintu Oy, [place] [id number] Regulatory Analyst - Roslyn Live MD PT ID [id number] ORD# [id number] Lena VILLASEÑOR LAB - BLOOD DRAW Edited Res ult - Final Performing Organization Address [facility] [place] [address], * HIV-1 & HIV-2 ANTIBODIES (05/08/2019 9:55 AM EST) [facility] HIV 1 AND 2 ANTIBODY SCREEN NONREACTIVE NONREACTIVE [facility] Comment: HIV testing performed at reference lab due to reagent backorder. Test performed at: [facility] [address] [place] [address] Juan Carlos Martinez MD- Regulatory Analyst Blood specimen (specimen) Blood / Unknown 05/08/2019 9:55 AM EST 05/08/2019 10:21 AM EST Shannon [facility] [facility] - 05/13/2019 2:51 PM EST Nintu Oy, [place] [id number] Regulatory Analyst - Roslyn Live MD PT ID [id number] ORD# [id number] Lena VILLASEÑOR LAB - BLOOD DRAW Final Resu lt Performing Organization Address [facility] [place] [address], [place] [phone] from Last 3 Months or Most Recently Relevant to Health Maintenance Insurance [address] [employer] Care Teams Mechanical Facilities Technician Relationship Specialty Start Date End Date Dmitri Arzola MD [address] [place] [address] PCP - General Internal Medicine 05/05/19
== END 2025-01-08 16:05 | disposition home or self-care (01) ==
LOC: HO.HKA 15:37
PROVIDERS: PCP Internal Medicine; Visit Provider Internal Medicine Nephrology
DX: R03.0 Elevated blood-pressure reading, without diagnosis of hypertension (principal); N18.32 Chronic kidney disease, stage 3b
CPT/HCPCS: 93790; 99214

== ENCOUNTER → 2025-01-08 15:36 | Outpatient (BNVA) | payer MEDICAID, SELFPAY | PROVIDERS: PCP Internal Medicine; Visit Provider Internal Medicine Nephrology | DX: N18.32 Chronic kidney disease, stage 3b (principal); I10 Essential (primary) hypertension | CPT/HCPCS: 99212 ==

== ENCOUNTER 2025-01-13 15:33 | Outpatient (AMB) | payer MEDICAID, SELFPAY ==
--- NOTE | 2025-01-13 15:43 | HO.NEPHOV ---
Vital Signs 01/13/25 15:44 Height 5 ft 10 in Weight 186 lb BMI 26.7 BP 172/84 H Blood Pressure Location Lt brachial Position Sitting Pulse 79 Pulse Source Pulse Oximeter Pulse Oximetry (%) 95 Oxygen Delivery Method Room Air Intake Visit Reasons: 1wk f/u No labs Food Supervisor Required: No Accompanied by: Significant Other Allergies lisinopril Allergy (Verified 01/13/25 15:43) Facial Swelling HPI Comments Details: 59-year-old male with history of diabetes, hypertension who recently had Acute renal failure with acute metabolic acidosis requiring acute hemodialysis which seems to be related more to ATN . He has significant improvement in his urine output and his serum creatinine steadily improved and stabilized. Permacath was placed on 06/02/24 & his last inpatient HD session on 06/03/24. He presented to ER with facial swelling and lip swelling which was thought to be angioedema from ACEI. At one of the last last office visit he had difficulty turning his neck as well as right sided neck swelling. He denied any SOB or hemoptysis. He was thought to have DVT in IJ which was confirmed by USS and his permcath was removed & had been on Elquis which has been stopped now. He continued to have labile BP and had a 24 hour BPM which showed uncontrolled BP. His Amlodipine was changed to Nifedipine with improvement in BP . He remains non compliant with diet. He is seen in follow up [facility] Medical History Hypertension RAMONITA (acute kidney injury) Uncontrolled hypertension ESRD needing dialysis HLD (hyperlipidemia) Non-insulin dependent type 2 diabetes mellitus Asthma Social History Household Members: Family Housing: Apartment Do you presently have visiting nurse or other home services: No Alcohol intake: former Patient Tobacco Use Status: Current someday Tobacco user Tobacco use type: Cigarette Cigarette Packs Per Day: 1 Cigarettes Per Day: 9 e-Cigarette/Vaping Use: Never Used Second Hand Smoke Exposure: No service: No Current occupational status: employed Review of Systems Const All systems reviewed & are unremarkable except as noted in HPI and below Physical Exam Vital Signs: Last Vital Signs Pulse 79 01/13/25 15:44 BP 172/84 H 01/13/25 15:44 Pulse Ox 95 01/13/25 15:44 Oxygen Delivery Method Room Air 01/13/25 15:44 BMI result Body Mass Index 26.7 Const General: comfortable and no acute distress Orientation/consciousness: patient oriented x3 HEENT Head: Yes normocephalic Mouth: Normal oral and palatal mucosa present Eyes EOM: EOMs intact bilaterally Neck Neck: Yes supple Resp Auscultation: clear to auscultation bilaterally Cardio Jugular venous distension: no JVD Rate: regular rate GI Palpation (GI): Soft to palpation Auscultation: normal bowel sounds General: Yes no CVA tenderness Back/Spine/Pelvis Back: no CVA tenderness Skin General skin exam: no rashes or lesions noted Neuro General: patient oriented x3 and moves all extremities Extrem General: Yes no pedal edema Results Reviewed Nephrology Results: Hgb, (14.0-18.0) 12.2 g/dl L 01/02/25 WBC, (4.8-10.8) 6.2 X10*3/uL 01/02/25 Plt Count, (160-400) 255 X10*3/uL 01/02/25 Sodium, (135-145) 140 mmol/L 01/02/25 Potassium, (3.3-5.1) 3.8 mmol/L 01/02/25 Chloride, (96-108) 106 mmol/L 01/02/25 Carbon Dioxide, (22-29) 24 mmol/L 01/02/25 BUN, (9-16) 25 mg/dL H 01/02/25 Creatinine, (0.5-1.4) 2.75 mg/dL H 01/02/25 Calcium, (8.4-10.2) 8.9 mg/dL Δ 01/02/25 Urine Protein, (Neg-Trace) 300 (3+) mg/dL H 01/02/25 Renal US 05/21/24 Assessment & Plan Assessment & Plan (1) Hypertension: Code(s): I10 - Essential (primary) hypertension Category: Medical Qualifiers: Hypertension type: primary hypertension Qualified Code(s): I10 - Essential (primary) hypertension (2) CKD stage 3b, GFR 30-44 ml/min: Code(s): N18.32 - Chronic kidney disease, stage 3b Category: Medical (3) Diabetic nephropathy: Code(s): E11.21 - Type 2 diabetes mellitus with diabetic nephropathy Category: Medical Qualifiers: Diabetes mellitus type: type 2 Qualified Code(s): E11.21 - Type 2 diabetes mellitus with diabetic nephropathy Plan H/O RAMONITA due to ATN ( S/P renal biopsy)- recovered Likely has underlying diabetic kidney disease( CKD 3 B) Urine output good; Has DVT of neck- Was on Elquis- off it No ACEI/NSAID's; 24 hour BP monitor results reviewed again Amlodipine switched to Nifedipine- likely need more Asked to keep BP log at home 3 times a day for 2 weeks Needs better diet control; Will need 24 hr urine for cr cl soon Will be a candidate for SGLT2 i; F/U with me in 2 weeksweek Orders: Orders Hemoglobin A1c 2 Weeks I10 - Essential (primary) hypertension, N18.32 - Chronic kidney disease, stage 3b Creatinine 2 Weeks I10 - Essential (primary) hypertension, N18.32 - Chronic kidney disease, stage 3b Blood Urea Nitrogen 2 Weeks I10 - Essential (primary) hypertension, N18.32 - Chronic kidney disease, stage 3b Electrolytes 2 Weeks I10 - Essential (primary) hypertension, N18.32 - Chronic kidney disease, stage 3b Coding Level of Care Code Est Pt Level 4 (88263) Diagnoses Primary hypertension I10 Hypertension type: primary hypertension CKD stage 3b, GFR 30-44 ml/min N18.32 Diabetic nephropathy associated with type 2 diabetes mellitus E11.21 Diabetes mellitus type: type 2
[2025-01-13 15:44] VITALS: BP 172/84; PULSE 79; O2SAT 95; BMI 26.7
--- OUTSIDE RECORDS SUMMARY | 2025-01-13 18:55 | XMS_ITS | Clinical Summary ---
Author Organization [facility] Address [address] [place] [address] Care Team Providers Care Automotive Diagnostic Technician Name Role Phone Dmitri Arzola MD [...] dsdvIndications:M oderate persistent asthma with acute exacerbation ([facility]) INHALE 1 PUFF BY MOUTH EVERY DAY 60 Each 3 022 Active aspirin 81 mg chewable tablet Take 81 mg by mouth once daily 023 Active blood-glucose meter monitoring kitIndications:Ty pe 2 diabetes mellitus without complication, without long-term current use of insulin ([facility]) Pt is Diabetic . E11.9 1 Each 024 Active alcohol swabsIndications: Type 2 diabetes mellitus without complication, without long-term current use of insulin ([facility]) Pt is Diabetic . E11.9 once a day 100 Each 1 025 Active blood sugar diagnostic (FREESTYLE TEST) stripsIndications :Type 2 diabetes mellitus without complication, without long-term current use of insulin ([facility]) USE TO TEST ONCE A [...] to occlusion of left anterior cerebral artery ([facility]),Mixed hyperlipidemia TAKE 1 TABLET BY MOUTH EVERY DAY 90 Tablet 1 025 Active omeprazole (PRILOSEC) [address] capsuleIndication s:Gastroesophagea l reflux disease without esophagitis TAKE 1 CAPSULE BY MOUTH EVERY DAY IN THE MORNING BEFORE BREAKFAST 90 Capsule 2 025 Active metFORMIN (GLUCOPHAGE) 500 mg tabletIndications :Controlled type 2 diabetes mellitus without complication, without long-term current use of insulin ([facility]) TAKE 1 TABLET BY MOUTH TWICE A DAY WITH FOOD 180 Tablet 025 Active ELIQUIS 5 mg tabIndications:Ar m DVT (deep venous thromboembolism), acute, right ([facility]) TAKE 1 TABLET BY MOUTH TWICE A DAY 60 Tablet 1 025 Active atenoloL (TENORMIN) 50 mg tabletIndications :Primary hypertension TAKE 1 TABLET BY MOUTH EVERY DAY 90 Tablet 025 Active lancets (FREESTYLE LANCETS) 28 gaugeIndications: Type 2 diabetes mellitus without complication, without long-term current use of insulin ([facility]) CHECK ONCE A DAY 100 Each 1 025 Active lancets (FREESTYLE LANCETS) 28 gaugeIndications: Type 2 diabetes mellitus without complication, without long-term current use of insulin ([facility]) Pt is Diabetic . E11.9 check once a day 100 Each 1 025 2024 Discontinued atenoloL (TENORMIN) 50 mg tabletIndications :Primary hypertension TAKE 1 TABLET BY MOUTH EVERY DAY 90 Tablet 025 2024 Discontinued Active Problems Problem Noted Date Diagnosed Date Arm DVT (deep venous thrombo embolism), acute, right ([facility]) 06/16/2024 Overview (06/16/2024): [facility] 06/09/2024 Admitted for Right sided neck pain and swelling . Sent to Er by Client Support Representative for concern of DVT Right Internal Jugular vein . Right IJ Perm Cath removed. Venous Duplex showed positive for DVT Right IJ Vein . Started on Eliquis 10 mg po bid for 7 days then 5 mg po bid Food insecurity 04/16/2024 Financial difficulties 04/16/2024 Cerebrovascular accident (CV A) due to occlusion of left anterior cerebral artery ([facility]) 09/26/2022 Overview (09/26/2022): Admitted [facility]- Admitted 09/21/22 and Woke up in [...] melly, without long-term current use of insulin ([facility]) 01/04/2015 Lump 10/28/2014 Overview (10/28/2014): R foot [facility] 09/2014: negative Mild intermittent asthma ([facility]) [...] Department Care Team Description 01/05/2025 Interim Notes [address] [phone] Bria Madrigal 11/05/2024 Results Follow-Up [address] [phone] Cintia Zambrano FNP 11/04/2024 11:00 AM EDT Office Visit [address] [phone] Cintia Zambrano FNP from Last 3 Months [...] Pf, Maximiliano-sucrose, 30 Mcg/0.3 Ml, 12yr+ 04/11/2023 Mobile System [employer] COVID-19 Vac cine Bivalent, ([employer] COVID-19 [...] 09/28/2022, 10/04/2016 Imm-Hepatitis B Completed 04/11/2023, 09/28/2022 Yma-[id number]-15 Completed 01/08/2024, 03/29, 09/28/2022, Additional history exists Alcohol and Drug Screen Completed 07/02/19 25, 07/11/2023, 09/28/2022, Additional history exists Depression Annual Screen Completed 025, 07/11/2023, 09/28/2014 Imm-Zoster, Recombinant Completed 07/01/2024, 02/02 Procedures Procedure Name Priority Date/Time Associated Diagnosis Comments REFERRAL SCANNED DOCUMENT 01/08/2025 3:00 AM EDT REFERRAL SCANNED DOCUMENT 01/06/2025 3:00 AM EDT [...] complication, without long-term current use of insulin ([facility]) TSH W/RFLX FREE T4 Routine 11/04/2024 11 :16 AM EDT Routine general medical examination at a [facility] care facility BLOOD COUNT COMPLETE AUTO&AUTO DIFRNTL WBC Routine 11/04/2024 11:16 AM EDT Routine general medical examination at a [facility] care facility COMPREHENSIVE METABOLIC PANEL Routine 11/04/2024 11:16 AM EDT Routine general medical examination at a health care facility Controlled type 2 diabetes mellitus without complication, without long-term current use of insulin ([facility]) REFERRAL SCANNED DOCUMENT 10/26/2024 3:00 AM EDT IMAGING SCANNED DOCUMENT 10/20/2024 3:00 AM EDT IMAGING SCANNED DOCUMENT 10/20/2024 3:00 AM EDT MICROALBUMIN/CREATININ E RATIO, URINE, RANDOM Routine 05/12/2024 8:40 AM EST Type 2 diabetes mellitus without complication, without long-term current use of insulin ([facility]) FECAL GLOBIN BY IMMUNOCHEMISTRY (FIT) Routine [...] Health Maintenance Results * REFERRAL SCANNED DOCUMENT (01/08/2025 3:00 AM EDT) Only the most recent of5 resultswithin the time period is included. 01/08/2025 3:00 AM EDT us Dmitri Arzola MD [...] EDT) 11/19/2024 3:00 AM EDT Cintia Zambrano [employer] REFERRAL Cyndi l Result * (ABNORMAL) HGA1C W/EAG Routine (11/04/2024 11:16 AM EDT) HEMOGLOBIN A1C 7.2(H) <5.7 % [employer] Comment: For someone without known diabetes, a [...] diabetes for children. EAG (MG/DL) 160 mg/dL [facility] [facility] EAG (MMOL/L) 8.9 mmol/L [facility] [facility] Blood Blood / Unknown 11/04/2024 1 1:16 AM EDT 11/04/2024 11:17 AM EDT Narrative [employer] - 11/05/2024 9:27 AM EDT FASTING:YES COLLECTION KIT GIVEN TO PATIENT. PATIENT ADVISED TO RETURN. Cintia Zambrano [facility] - BLOOD DRAW Rajiv doug Result - Final Performing Organization Address [facility]/ZIP Co de Phone Number [employer] [address] [place] [phone], If You Can [place] [employer] [address] [place] [phone] * TSH W/RFLX FREE T4 Routine (11/04/2024 11:16 AM EDT) TSH W/REFLEX TO FT4 1.28 0.40 - 4.50 mIU/L [employer] Blood Blood / Unknown 11/04/2024 1 1:16 AM EDT 11/04/2024 11:17 AM EDT Narrative [employer] - 11/05/2024 9:27 AM EDT FASTING:YES COLLECTION KIT GIVEN TO PATIENT. PATIENT ADVISED TO RETURN. Cintia Zambrano [facility] - BLOOD DRAW Rajiv doug Result - Final Performing Organization Address [facility] Co de Phone Number [employer] [address] [place] [phone], [employer] [address] [place] [phone] * (ABNORMAL) LIPIDS W RFLX TO DIRECT LDL Routine (11/04/2024 11:16 AM EDT) CHOLESTEROL, TOTAL 170 <200 mg/dL [facility] [facility] HDL CHOLESTEROL 36(L) > OR = 40 mg/dL [employer] TRIGLYCERIDES 331(H) <150 mg/dL [employer] Comment: If a non-fasting specimen was collected, consider repeat triglyceride testing on a fasting specimen if clinically indicated. Joel et al. J. of Clin. Lipidol. 2015;9:129-169. LDL-CHOLESTEROL 90 99 mg/dL (calc) [employer] Comment: Reference range: <100 Desirable range <100 mg/dL for primary prevention; <70 mg/dL for patients with CHD or diabetic patients with > or = 2 CHD risk factors. LDL-C is now calculated using the Nick-Martinez calculation, which is a validated novel method providing better accuracy than the Friedewald equation in the estimation of LDL-C. Nick SS et al. RONALD. 2013;310(85): 7945-3648 (http://education.Support Your App/faq/ZZY789) CHOL/HDLC RATIO 4.7 <5.0 (calc) [employer] NON-HDL CHOLESTEROL 134(H) <130 mg/dL (calc) [employer] Comment: For patients with diabetes plus 1 major ASCVD risk factor, treating to a non-HDL-C goal of <100 mg/dL (LDL-C of <70 mg/dL) is considered a therapeutic option. Blood Blood / Unknown 11/04/2024 1 1:16 AM EDT 11/04/2024 11:17 AM EDT Narrative [employer] - 11/05/2024 9:27 AM EDT FASTING:YES COLLECTION KIT GIVEN TO PATIENT. PATIENT ADVISED TO RETURN. Cintia Zambrano [facility] - BLOOD DRAW Fin al Result [employer] [address] [place] [phone], [employer] [address] [place] [phone] * BLOOD COUNT COMPLETE AUTO&AUTO DIFRNTL WBC Routine (11/04/2024 11:16 AM EDT) WHITE BLOOD CELL COUNT 5.9 3.8 - 10.8 Thousand/ uL [employer] RED BLOOD CELL COUNT 4.89 4.20 - 5.80 Million/u L [employer] HEMOGLOBIN 13.6 13.2 - 17.1 g/dL [employer] HEMATOCRIT 42.0 38.5 - 50.0 % [employer] MCV 85.9 80.0 - 100.0 fL [employer] MCH 27.8 27.0 - 33.0 pg [employer] MCHC 32.4 32.0 - 36.0 g/dL [employer] Comment: For adults, a slight decrease in the calculated MCHC value (in the range of 30 to 32 g/dL) is most likely not clinically significant; however, it should be interpreted with caution in correlation with other red cell parameters and the patient's clinical condition. RDW 13.7 11.0 - 15.0 % [employer] PLATELET COUNT 287 140 - 400 Thousand/ uL [employer] MPV 9.5 7.5 - 12.5 fL [employer] ABSOLUTE NEUTROPHILS 2,407 1,500 - 7,800 cells/uL [employer] ABSOLUTE LYMPHOCYTES 2,921 850 - 3,900 cells/uL [employer] ABSOLUTE MONOCYTES 419 200 - 950 cells/uL [employer] ABSOLUTE EOSINOPHILS 112 15 - 500 cells/uL [employer] ABSOLUTE BASOPHILS 41 0 - 200 cells/uL [employer] NEUTROPHILS PCT 40.8 % [employer] LYMPHOCYTES 49.5 % [employer] MONOCYTES 7.1 % [facility] [employer] EOSINOPHILS 1.9 % [employer] BASOPHILS 0.7 % [email or web address] Blood Blood / Unknown 11/04/2024 1 1:16 AM EDT 11/04/2024 11:17 AM EDT Narrative [employer] - 11/05/2024 9:27 AM EDT FASTING:YES COLLECTION KIT GIVEN TO PATIENT. PATIENT ADVISED TO RETURN. [facility] - BLOOD DRAW Rajiv doug Result - Final [employer] [address] [place] [phone], [employer] [address] [place] [phone] * (ABNORMAL) COMPREHENSIVE METABOLIC PANEL Routine (11/04/2024 11:16 AM EDT) GLUCOSE 115(H) 65 - 99 mg/dL [employer] Comment: Fasting reference interval For someone without known diabetes, a glucose value between 100 and 125 mg/dL is consistent with prediabetes and should be confirmed with a follow-up test. UREA NITROGEN (BUN) 23 7 - 25 mg/dL [employer] CREATININE (blood) 2.37(H) 0.70 - 1.30 mg/dL [employer] EGFR 31(L) > OR = 60 mL/min/1. 73m2 [email or web address] [facility] BUN/CREATININE RATIO 10 6 - 22 (calc) [email or web address] [facility] SODIUM 136 135 - 146 mmol/L [email or web address] [facility] POTASSIUM 4.0 3.5 - 5.3 mmol/L [email or web address] [facility] CHLORIDE 104 98 - 110 mmol/L [email or web address] [facility] CARBON DIOXIDE 23 20 - 32 mmol/L [email or web address] [facility] CALCIUM 8.9 8.6 - 10.3 mg/dL [email or web address] [facility] PROTEIN, TOTAL 6.9 6.1 - 8.1 g/dL [email or web address] [facility] ALBUMIN 4.2 3.6 - 5.1 g/dL [email or web address] [facility] GLOBULIN 2.7 1.9 - 3.7 g/dL (calc) [email or web address] [facility] ALBUMIN/GLOBULI N RATIO 1.6 1.0 - 2.5 (calc) [email or web address] [facility] BILIRUBIN, TOTAL 0.3 0.2 - 1.2 mg/dL [email or web address] [facility] ALKALINE PHOSPHATASE 84 35 - 144 U/L [email or web address] [facility] AST 22 10 - 35 U/L [email or web address] [facility] ALT 40 9 - 46 U/L [email or web address] [facility] Blood Blood / Unknown 11/04/2024 1 1:16 AM EDT 11/04/2024 11:17 AM EDT Narrative [facility] [facility] [employer] [facility] - 11/05/2024 9:27 AM EDT FASTING:YES COLLECTION KIT GIVEN TO PATIENT. PATIENT ADVISED TO RETURN. [facility] - BLOOD DRAW Fin al Result [employer] [address] [address], [email or web address] [address] [phone] * MICROALBUMIN/CREATININE RATIO, URINE, RANDOM (05/12/2024 8:40 AM EST) CREATININE, RANDOM URINE 125 20 - 320 mg/dL [email or web address] [facility] MICROALBUMIN 1.3 mg/dL [employer] [facility] Comment: Reference Range Not established MICROALBUMIN/CREA TININE RATIO, RANDOM URINE 10 <30 mg/g creat [email or web address] [facility] Comment: The ADA defines abnormalities in albumin [...] AM EST 05/12/2024 8:40 AM EST Narrative [email or web address] [facility] - 05/14/2024 6:43 PM EST SPLIT 02/03/2024 FROM [id number] us Dmitri Arzola MD LAB URINE AMBULATORY Final Resu lt Performing Organization Address [facility] Co de Phone Number [email or web address] [address] [address], If You Can [address] [phone] * FECAL GLOBIN BY IMMUNOCHEMISTRY (FIT) (05/10/2024 7:00 PM EST) FECAL GLOBIN BY IMMUNOCHEMISTRY See Note [email or web address] [facility] Comment: FECAL GLOBIN BY IMMUNOCHEMISTRY Micro Number: [id number] Test Status: Final Specimen Source: Insure (tm) fobt test card Specimen Quality: Adequate Fecal Globin: Not Detected Stool Stool specimen / Unknown 05/10/2024 7:00 PM EST 05/14/2024 7:37 AM EST us Dmitri Arzola MD LAB BODY FLUIDS AND STOOLS AMBU LATORY Final Result Performing Organization Address [facility] de Phone Number [email or web address] [address] [address], If You Can [address] [phone] * HEPATITIS A,B,C PANEL (05/08/2019 9:55 AM EST) HEPATITIS B SURFACE ANTIBODY NEGATIVE NEGATIVE [facility] HEPATITIS B SURFACE ANTIGEN NEGATIVE NEGATIVE [facility] Comment: Over the counter supplements containing high doses of biotin may interfere with this assay. If interference is suspected, patients shoud be retested after refraining from biotin supplements for 72 hours. HEPATITIS C VIRUS DIAGNOSTIC NEGATIVE NEGATIVE [facility] HEPATITIS A ANTIBODY TOTAL NEGATIVE NEGATIVE [facility] Comment: Over the counter supplements containing high doses of biotin may interfere with this assay. If interference is suspected, patients shoud be retested after refraining from biotin supplements for 72 hours. HEPATITIS B CORE ANTIBODY NEGATIVE NEGATIVE [facility] Blood specimen (specimen) Blood / Unknown 05/08/2019 9:55 AM EST 05/08/2019 10:21 AM EST Narrative [facility] - 05/08/2019 1:59 PM EST [employer], [place] [address] Principal Java Software Engineer - Roslyn Live MD PT ID [id number] ORD# [id number] [facility] - BLOOD DRAW Edited Res ult - Final Performing Organization Address City/[facility] Co de Phone Number [address] [address], * HIV-1 & HIV-2 ANTIBODIES (05/08/2019 9:55 AM EST) HIV 1 AND 2 ANTIBODY SCREEN NONREACTIVE NONREACTIVE [facility] Comment: HIV testing performed at reference lab due to reagent backorder. Test performed at: [facility] [address] [place] [address] Juan Carlos Martinez MD- Principal Java Software Engineer Blood specimen (specimen) Blood / Unknown 05/08/2019 9:55 AM EST 05/08/2019 10:21 AM EST Narrative [facility] - 05/13/2019 2:51 PM EST [employer], a member of [address] [address] Principal Java Software Engineer - Roslyn Live MD PT ID [id number] ORD# [id number] [facility] - BLOOD DRAW Final Resu lt Performing Organization Address [facility] Co de Phone Number [address] [place] [address], from Last 3 Months or Most Recently Relevant to Health Maintenance Insurance [employer] [facility] [employer] Care Teams Automotive Diagnostic Technician Relationship Specialty Start Date End Date Dmitri Arzola MD [address] [place] [address] PCP - General Internal Medicine 05/05/19
--- OUTSIDE RECORDS SUMMARY | 2025-01-13 18:55 | XMS_ITS | Clinical Summary ---
Author Organization [facility] Address [address] [facility] 7 [place] [address] Care Team Providers Care Burner Technician Name Role Phone Unavailable Primary Care Provider Unavailabl e Encounters Date Type Department Care Team Description 11/17/2024 Population Health Risk Score [facility] Care [facility] (C3) Department [address] [phone] Provider, Population Health Generic from Last 3 [...]
== END 2025-01-13 16:10 | disposition home or self-care (01) ==
LOC: HO.HKA 15:34
PROVIDERS: PCP Internal Medicine; Visit Provider Internal Medicine Nephrology
DX: I10 Essential (primary) hypertension (principal); N18.32 Chronic kidney disease, stage 3b; E11.21 Type 2 diabetes mellitus with diabetic nephropathy
CPT/HCPCS: 99214

== ENCOUNTER → 2025-01-13 15:33 | Outpatient (BNVA) | payer MEDICAID, SELFPAY | PROVIDERS: PCP Internal Medicine; Visit Provider Internal Medicine Nephrology | DX: E11.22 Type 2 diabetes mellitus with diabetic chronic kidney disease (principal); I12.9 Hypertensive chronic kidney disease with stage 1 through stage 4 chronic kidney disease, or unspecified chronic kidney disease; N18.32 Chronic kidney disease, stage 3b; E11.21 Type 2 diabetes mellitus with diabetic nephropathy | CPT/HCPCS: 99212 ==

== ENCOUNTER 2025-01-29 15:20 | Outpatient (AMB) | payer MEDICAID, SELFPAY ==
--- OUTSIDE RECORDS SUMMARY | 2025-01-29 15:24 | XMS_ITS | Clinical Summary ---
Author Organization [employer] [facility] Address [address] [facility] 7 [place] [address] Care Team Providers Care Automotive Glazier Name Role Phone Unavailable Primary Care Provider Unavailabl e Encounters Date Type Department Care Team Description 11/17/2024 Population Health Risk Score [facility] Care [facility] (C3) Department [address] [phone] Provider, Population Health Generic from Last 3 [...]
--- NOTE | 2025-01-29 15:40 | HO.NEPHOV ---
Vital Signs 01/29/25 15:42 Height 5 ft 10 in Weight 183 lb 2 oz BMI 26.3 BP 150/80 H Blood Pressure Location Rt brachial Position Sitting Pulse 81 Pulse Source Pulse Oximeter Pulse Oximetry (%) 96 Oxygen Delivery Method Room Air Intake Visit Reasons: 2wk f/u-Conf Real Estate Closing Coordinator Required: No Accompanied by: Significant Other Allergies lisinopril Allergy (Verified 01/29/25 15:41) Facial Swelling HPI Comments Details: 59-year-old male with history of diabetes, hypertension who recently had Acute renal failure with acute metabolic acidosis requiring acute hemodialysis which seems to be related more to ATN . He has significant improvement in his urine output and his serum creatinine steadily improved and stabilized. Permacath was placed on 06/02/24 & his last inpatient HD session on 06/03/24. He presented to ER with facial swelling and lip swelling which was thought to be angioedema from ACEI. At one of the last last office visit he had difficulty turning his neck as well as right sided neck swelling. He denied any SOB or hemoptysis. He was thought to have DVT in IJ which was confirmed by USS and his permcath was removed & had been on Elquis which has been stopped now. He continued to have labile BP and had a 24 hour BPM which showed uncontrolled BP. His Amlodipine was changed to Nifedipine with improvement in BP . He remains non compliant with diet. He is seen in follow up [facility] Medical History Hypertension RAMONITA (acute kidney injury) Uncontrolled hypertension ESRD needing dialysis HLD (hyperlipidemia) Non-insulin dependent type 2 diabetes mellitus Asthma Social History Household Members: Family Housing: Apartment Do you presently have visiting nurse or other home services: No Alcohol intake: former Patient Tobacco Use Status: Current someday Tobacco user Tobacco use type: Cigarette Cigarette Packs Per Day: 1 Cigarettes Per Day: 9 e-Cigarette/Vaping Use: Never Used Second Hand Smoke Exposure: No service: No Current occupational status: employed Review of Systems Const All systems reviewed & are unremarkable except as noted in HPI and below Physical Exam Vital Signs: Last Vital Signs Pulse 81 01/29/25 15:42 BP 150/80 H 01/29/25 15:42 Pulse Ox 96 01/29/25 15:42 Oxygen Delivery Method Room Air 01/29/25 15:42 BMI result Body Mass Index 26.3 Const General: comfortable and no acute distress Orientation/consciousness: patient oriented x3 HEENT Head: Yes normocephalic Mouth: Normal oral and palatal mucosa present Eyes EOM: EOMs intact bilaterally Neck Neck: Yes supple Resp Auscultation: clear to auscultation bilaterally Cardio Jugular venous distension: no JVD Rate: regular rate GI Palpation (GI): Soft to palpation Auscultation: normal bowel sounds General: Yes no CVA tenderness Back/Spine/Pelvis Back: no CVA tenderness Skin General skin exam: no rashes or lesions noted Neuro General: patient oriented x3 and moves all extremities Extrem General: Yes no pedal edema Results Reviewed Nephrology Results: Hgb, (14.0-18.0) 12.2 g/dl L 01/02/25 WBC, (4.8-10.8) 6.2 X10*3/uL 01/02/25 Plt Count, (160-400) 255 X10*3/uL 01/02/25 Sodium, (135-145) 140 mmol/L 01/02/25 Potassium, (3.3-5.1) 3.8 mmol/L 01/02/25 Chloride, (96-108) 106 mmol/L 01/02/25 Carbon Dioxide, (22-29) 24 mmol/L 01/02/25 BUN, (9-16) 25 mg/dL H 01/02/25 Creatinine, (0.5-1.4) 2.75 mg/dL H 01/02/25 Calcium, (8.4-10.2) 8.9 mg/dL Δ 01/02/25 Urine Protein, (Neg-Trace) 300 (3+) mg/dL H 01/02/25 Renal US 05/21/24 Assessment & Plan Assessment & Plan (1) CKD stage 3b, GFR 30-44 ml/min: Code(s): N18.32 - Chronic kidney disease, stage 3b Category: Medical (2) Hypertension: Code(s): I10 - Essential (primary) hypertension Category: Medical Qualifiers: Hypertension type: primary hypertension Qualified Code(s): I10 - Essential (primary) hypertension (3) Diabetic nephropathy: Code(s): E11.21 - Type 2 diabetes mellitus with diabetic nephropathy Category: Medical Qualifiers: Diabetes mellitus type: type 2 Qualified Code(s): E11.21 - Type 2 diabetes mellitus with diabetic nephropathy Plan H/O RAMONITA due to ATN ( S/P renal biopsy)- recovered Likely has underlying diabetic kidney disease-last GFR 47 mls/mt Urine output good; Had DVT of neck- Was on Elquis- off it No ACEI/NSAID's; 24 hour BP monitor results reviewed again Amlodipine switched to Nifedipine-Increased to 90 mg daily- likely need more Asked to keep BP log at home 3 times a day ;Needs better diet control Will be a candidate for SGLT2 i @ next visit; F/U with me in 2 months Orders: Orders Creatinine 2 Months N18.32 - Chronic kidney disease, stage 3b Blood Urea Nitrogen 2 Months N18.32 - Chronic kidney disease, stage 3b Electrolytes 2 Months N18.32 - Chronic kidney disease, stage 3b Medications: Changed From nifedipine ER 60 mg PO DAILY 30 tabs 6RF To nifedipine ER 90 mg (1.5 x 60 mg) PO DAILY 135 tabs 6RF 90 days From atenolol 75 mg (1.5 x 50 mg) PO Q24H 30 days 45 tabs 0RF To atenolol 75 mg (1.5 x 50 mg) PO Q24H 135 tabs 6RF 90 days Coding Level of Care Code Est Pt Level 4 (39610) Diagnoses CKD stage 3b, GFR 30-44 ml/min N18.32 Primary hypertension I10 Hypertension type: primary hypertension Diabetic nephropathy associated with type 2 diabetes mellitus E11.21 Diabetes mellitus type: type 2
[2025-01-29 15:42] VITALS: BP 150/80; PULSE 81; O2SAT 96; BMI 26.3
== END 2025-01-29 16:02 | disposition home or self-care (01) ==
LOC: HO.HKA 15:21
PROVIDERS: PCP Internal Medicine; Visit Provider Internal Medicine Nephrology
DX: N18.32 Chronic kidney disease, stage 3b (principal); I10 Essential (primary) hypertension; E11.21 Type 2 diabetes mellitus with diabetic nephropathy
CPT/HCPCS: 99214

== ENCOUNTER → 2025-01-29 15:20 | Outpatient (BNVA) | payer MEDICAID, SELFPAY | PROVIDERS: PCP Internal Medicine; Visit Provider Internal Medicine Nephrology | DX: N18.32 Chronic kidney disease, stage 3b (principal); I10 Essential (primary) hypertension; E11.21 Type 2 diabetes mellitus with diabetic nephropathy | CPT/HCPCS: 99212 ==

== ENCOUNTER 2025-04-07 07:19 | Outpatient (REF) | payer MEDICAID, SELFPAY ==
--- OUTSIDE RECORDS SUMMARY | 2025-04-07 07:22 | XMS_ITS | Clinical Summary ---
Author Organization [employer] Address [address] [place] [address] Care Team Providers Care Vice President Residential Solar Sales Name Role Phone Unavailable Primary Care Provider Unavailabl e Social History Tobacco Use Types Packs/Day Years [...] Tobacco Screening 1977 Hepatitis C Screening 1983 RSV Patients and Patients Aged 60 years or older (1 - Risk 50-74 years 1-dose series) 2015 Colorectal Cancer Screening 05/11/2025 FIT 05/11/2025 05/11/2024, 05/10/2024 DTaP/Tdap/Td Vaccines (2 - Td or Tdap) 05/06/2029 05/06/2019 HIV Screening Completed 05/08/2019 Pneumococcal Vaccine: 50+ Years Completed 12/21/2022, 09/28/2022, 10/04/2016 Hepatitis B Vaccines Completed 04/11/2023, 09/29/19 23 Zoster Vaccines Completed 07/01/2024, 02/03/2024 COVID-19 Vaccine Completed 03/11/2025, 02/2024, 04/11/2023, Additional history exists Influenza Vaccine Completed 03/11/2025, , 12/21/2022, Additional history exists HIB Vaccines Aged Out [...]
[2025-04-07 08:37] LABS: Anion Gap 13 (12-20); Blood Urea Nitrogen 30 mg/dL (9-16); Carbon Dioxide 23 mmol/L (22-29); Chloride 108 mmol/L (96-108); Estimated Glomerular Filt Rate 27; Potassium 4.0 mmol/L (3.3-5.1); Sodium 140 mmol/L (135-145)
== END 2025-04-07 07:20 | disposition home or self-care (01) ==
LOC: HO.LAB 07:19
PROVIDERS: PCP Physician Assistant; Visit Provider Internal Medicine Nephrology
DX: I12.9 Hypertensive chronic kidney disease with stage 1 through stage 4 chronic kidney disease, or unspecified chronic kidney disease (principal); N18.32 Chronic kidney disease, stage 3b
CPT/HCPCS: 36415; 80051; 82565; 83036; 84520

== ENCOUNTER 2025-04-09 15:25 | Outpatient (AMB) | payer MEDICAID, SELFPAY ==
--- NOTE | 2025-04-09 15:47 | HO.NEPHOV_ITS ---
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 He has significant improvement in his urine output and his serum creatinine steadily improved and stabilized. Permacath was placed on 06/02/24 & his last inpatient HD session on 06/03/24. He presented to ER with facial swelling and lip swelling which was thought to be angioedema from ACEI. At one of the last last office visit he had difficulty turning his neck as well as right sided neck swelling. He denied any SOB or hemoptysis. He was thought to have DVT in IJ which was confirmed by USS and his permcath was removed & had been on Elquis which has been stopped now. He continued to have labile BP and had a 24 hour BPM which showed uncontrolled BP. His Amlodipine was changed to Nifedipine with improvement in BP . He remains non compliant with diet. He is seen in follow up [facility] Medical History Hypertension RAMONITA (acute kidney injury) Uncontrolled hypertension ESRD needing dialysis HLD (hyperlipidemia) Non-insulin dependent type 2 diabetes mellitus Asthma Social History Household Members: Family Housing: Apartment Do you presently have visiting nurse or other home services: No Alcohol intake: former Patient Tobacco Use Status: Current someday Tobacco user Tobacco use type: Cigarette Cigarette Packs Per Day: 1 Cigarettes Per Day: 9 e-Cigarette/Vaping Use: Never Used Second Hand Smoke Exposure: No service: No Current occupational status: employed Review of Systems Const All systems reviewed & are unremarkable except as noted in HPI and below Physical Exam Vital Signs: Last Vital Signs Pulse 82 04/09/25 15:53 BP 144/80 H 04/09/25 15:53 Pulse Ox 96 04/09/25 15:53 Oxygen Delivery Method Room Air 04/09/25 15:53 BMI result Body Mass Index 27.3 Const General: comfortable and no acute distress Orientation/consciousness: patient oriented x3 HEENT Head: Yes normocephalic Mouth: Normal oral and palatal mucosa present Eyes EOM: EOMs intact bilaterally Neck Neck: Yes supple Resp Auscultation: clear to auscultation bilaterally Cardio Jugular venous distension: no JVD Rate: regular rate GI Palpation (GI): Soft to palpation Auscultation: normal bowel sounds General: Yes no CVA tenderness Back/Spine/Pelvis Back: no CVA tenderness Skin General skin exam: no rashes or lesions noted Neuro General: patient oriented x3 and moves all extremities Extrem General: Yes no pedal edema Results Reviewed Nephrology Results: Sodium, (135-145) 140 mmol/L 04/07/25 Potassium, (3.3-5.1) 4.0 mmol/L 04/07/25 Chloride, (96-108) 108 mmol/L 04/07/25 Carbon Dioxide, (22-29) 23 mmol/L 04/07/25 BUN, (9-16) 30 mg/dL H 04/07/25 Creatinine, (0.5-1.4) 2.49 mg/dL H 04/07/25 Renal US 05/21/24 Assessment & Plan Assessment & Plan (1) Hypertension: Code(s): I10 - Essential (primary) hypertension Category: Medical Qualifiers: Hypertension type: primary hypertension Qualified Code(s): I10 - Essential (primary) hypertension (2) CKD stage 3a, GFR 45-59 ml/min: Code(s): N18.31 - Chronic kidney disease, stage 3a Category: Medical Plan H/O RAMONITA due to ATN ( S/P renal biopsy)- recovered Likely has underlying diabetic kidney disease-last GFR 47 mls/mt Urine output good; Had DVT of neck- Was on Elquis- off it No ACEI/NSAID's; 24 hour BP monitor results reviewed again Amlodipine switched to Nifedipine-Increased to 90 mg daily- may need more Asked to keep BP log at home 3 times a day ;Needs better diet control Will be a candidate for SGLT2 i @ next visit; F/U with me in 3 months Orders: Orders Creatinine 3 Months I10 - Essential (primary) hypertension, N18.31 - Chronic kidney disease, stage 3a Electrolytes 3 Months I10 - Essential (primary) hypertension, N18.31 - Chronic kidney disease, stage 3a Blood Urea Nitrogen 3 Months I10 - Essential (primary) hypertension, N18.31 - Chronic kidney disease, stage 3a Coding Level of Care Code Est Pt Level 4 (61704) Diagnoses Primary hypertension I10 Hypertension type: primary hypertension CKD stage 3a, GFR 45-59 ml/min N18.31
[2025-04-09 15:53] VITALS: BP 144/80; PULSE 82; O2SAT 96; BMI 27.3
== END 2025-04-09 16:07 | disposition home or self-care (01) ==
LOC: HO.HKA 15:26
PROVIDERS: PCP Physician Assistant; Visit Provider Internal Medicine Nephrology
DX: I10 Essential (primary) hypertension (principal); N18.31 Chronic kidney disease, stage 3a
CPT/HCPCS: 99214

== ENCOUNTER → 2025-04-09 15:25 | Outpatient (BNVA) | payer MEDICAID, SELFPAY | PROVIDERS: PCP Internal Medicine; Visit Provider Internal Medicine Nephrology | DX: I12.9 Hypertensive chronic kidney disease with stage 1 through stage 4 chronic kidney disease, or unspecified chronic kidney disease (principal); E11.22 Type 2 diabetes mellitus with diabetic chronic kidney disease; N18.31 Chronic kidney disease, stage 3a; Z79.01 Long term (current) use of anticoagulants; F17.210 Nicotine dependence, cigarettes, uncomplicated | CPT/HCPCS: 99212 ==